=== PATIENT | female | born 1940 | race Caucasian/White ===

== ENCOUNTER → 2017-08-12 12:29 | Outpatient (CLI) | payer MEDICARE, SELFPAY ==
[2017-08-12 13:02] LABS: Bilirubin Urine UA NEGATIVE (NEGATIVE); Glucose Urine UA NEGATIVE (Normal); Ketones Urine UA NEGATIVE (NEGATIVE); Leukocyte Esterase Urine UA TRACE (NEGATIVE); Nitrite Urine UA NEGATIVE (NEGATIVE); Occult Blood Urine UA 3+ (Negative); Protein Urine UA 1+ (Negative); Specific Gravity Urine UA 1.015 (1.000-1.035); Urobilinogen Urine UA 0.2 E.U./dL (0.2)
[2017-08-12 13:04] LABS: Appearance Urine UA OTHER; Color Urine UA OTHER
[2017-08-12 13:11] LABS: RBC Urine >100/HPF (0-5/HPF); WBC Urine 1-5/HPF (0-5/HPF)
[2017-08-12 13:12] LABS: Culture Indicated Urine Cult Not Indicated; Squamous Epithelial Cell Urine 5-10 /HPF
== END ==
PROVIDERS: PCP Family Medicine; Visit Provider Urology
DX: N39.0 Urinary tract infection, site not specified (principal); R31.9 Hematuria, unspecified
CPT/HCPCS: 81001

== ENCOUNTER → 2017-08-20 08:56 | Outpatient (CLI) | payer MEDICARE, SELFPAY ==
[2017-08-20 09:21] LABS: Add Manual Diff / Slide Review NO; Basophils Percent Auto 1.3 % (0-2); Eosinophils Percent Auto 3.8 % (2-4); Hematocrit 35.1 % (36-46); Hemoglobin 11.6 g/dL (12.0-16.0); Lymphocytes Percent Auto 15.3 % (25-40); Mean Corpuscular HGB Conc 32.9 % (30-36); Monocytes Percent Auto 8.5 % (3-14); Neutrophils Absolute Auto 3000 /uL (3000-5900); Neutrophils Percent Auto 71.1 % (50-75); Platelet Count 208 X10^3/uL (150-400); Red Blood Cell Count 4.13 X10^6/uL (4.0-5.2); Red Cell Distribution Width 15.6 % (11.6-14.8); White Blood Cell Count 4.2 X10^3/uL (4.5-11.0)
[2017-08-20 09:29] LABS: INR 2.8 (0.9-1.3); Prothrombin Time 30.1 SECONDS (10.1-12.7)
[2017-08-20 09:32] LABS: PTT Partial Thromboplastin Tim 47 SECONDS (26.4-36.2)
[2017-08-20 09:42] LABS: Alanine Aminotransferase 18 IU/L (9-52); Albumin 3.8 g/dL (3.5-5.0); Albumin Globulin Ratio 1.1 (1.0-2.8); Alkaline Phosphatase 96 U/L (38-126); Aspartate Aminotransferase 16 IU/L (14-36); BUN Creatinine Ratio 17.9 (6-22); Bilirubin Total 0.4 mg/dL (0.2-1.3); Calcium 9.5 mg/dL (8.4-10.2); Estimated Glomerular Filt Rate 36.7 mL/min (>60); Globulin 3.4 g/dL (1.7-4.1); Glucose 112 mg/dL (80-110); HEMOLYSIS < 15 (0-50); Potassium 4.4 mmol/L (3.4-5.1); Sodium 142 mmol/L (137-145); Total Protein 7.2 g/dL (6.3-8.2)
[2017-08-20 10:13] LABS: Carcinoembryonic Antigen 1.3 ng/mL (0.1-3.0)
== END ==
PROVIDERS: Internal Medicine Hematology & Oncology; PCP Family Medicine; Visit Provider Nurse Practitioner Gerontology
DX: C20 Malignant neoplasm of rectum (principal); Z86.711 Personal history of pulmonary embolism; R07.89 Other chest pain
CPT/HCPCS: 80053; 82378; 85025; 85610; 85730

== ENCOUNTER → 2017-09-17 10:40 | Outpatient (CLI) | payer MEDICARE, SELFPAY ==
--- NOTE | 2017-09-17 | DI.US.S_ITS ---
PROCEDURE: US RENAL COMPLETE INDICATIONS: Hydronephrosis TECHNIQUE: Real-time scanning was performed of the kidneys and bladder, with image documentation. COMPARISON: [facility], CT, ABDOMEN/PELVIS WITHOUT CONTRAS, 05/11/2017, 9:01. FINDINGS: Kidneys: Right kidney surgically absent. Normal appearance of the left kidney measuring 13.0 cm in length. Renal cortical thickness of 19 mm. 3.5 cm inferior pole renal cortical cyst. Bladder: Urinary bladder decompressed and suboptimally visualized. Miscellaneous: No free pelvic fluid. IMPRESSION: Left renal cyst measuring up to 35 mm. No hydronephrosis. Dictated by: Timothy Hernandez [facility] Interpreted: Dany Roque MD on 09/17/2017 at 12:09 Approved by: Dany Roque M.D. on 09/17/2017 at 17:34
== END ==
PROVIDERS: PCP Family Medicine; Visit Provider Urology
DX: N28.1 Cyst of kidney, acquired (principal); Z90.5 Acquired absence of kidney
CPT/HCPCS: 76770

== ENCOUNTER → 2017-11-03 11:22 | Outpatient (CLI) | payer MEDICARE, SELFPAY ==
[2017-11-03 11:52] LABS: Alanine Aminotransferase 16 IU/L (9-52); Albumin 3.9 g/dL (3.5-5.0); Albumin Globulin Ratio 1.2 (1.0-2.8); Alkaline Phosphatase 101 U/L (38-126); Aspartate Aminotransferase 16 IU/L (14-36); BUN Creatinine Ratio 15.7 (6-22); Bilirubin Total 0.5 mg/dL (0.2-1.3); Blood Urea Nitrogen 22 mg/dL (7-17); Calcium 9.8 mg/dL (8.4-10.2); Carbon Dioxide 27 mmol/L (22-32); Chloride 107 mmol/L (98-107); Estimated Glomerular Filt Rate 36.7 mL/min (>60); Globulin 3.3 g/dL (1.7-4.1); Glucose 108 mg/dL (80-110); HEMOLYSIS < 15 (0-50); Potassium 4.5 mmol/L (3.4-5.1); Sodium 141 mmol/L (137-145); Total Protein 7.2 g/dL (6.3-8.2)
[2017-11-03 11:53] LABS: Add Manual Diff / Slide Review NO; Basophils Percent Auto 1.2 % (0-2); Eosinophils Percent Auto 2.7 % (2-4); Hematocrit 37.4 % (36-46); Mean Corpuscular HGB Conc 32.2 % (30-36); Mean Corpuscular Volume 83.8 fL (80-100); Monocytes Percent Auto 10.5 % (3-14); Neutrophils Absolute Auto 4000 /uL (3000-5900); Neutrophils Percent Auto 72.6 % (50-75); Platelet Count 233 X10^3/uL (150-400); Red Blood Cell Count 4.46 X10^6/uL (4.0-5.2); White Blood Cell Count 5.5 X10^3/uL (4.5-11.0)
[2017-11-03 12:23] LABS: Carcinoembryonic Antigen 1.2 ng/mL (0.1-3.0)
== END ==
PROVIDERS: PCP Family Medicine; Visit Provider Nurse Practitioner Gerontology
DX: C20 Malignant neoplasm of rectum (principal)
CPT/HCPCS: 36415; 80053; 82378; 85025

== ENCOUNTER → 2017-11-18 13:10 | Day surgery (SDC) | payer MEDICARE, SELFPAY ==
[2017-11-11 10:55] VITALS: BMI 37.2
[2017-11-18 13:39] VITALS: BP 152/80; PULSE 98; RESP 20; TEMP 37.4; O2SAT 97; BMI 37.2
--- NOTE | 2017-11-18 13:42 | SUR.OPER ---
Supine on padded OR bed, head on pillow, arm padded and tucked at side, legs uncrossed, safety belt at thigh, tape over blanket over lower legs .
== END ==
PROVIDERS: PCP Family Medicine; Visit Provider Surgery
PROC: (CPT 36590; principal; 2017-11-18 14:15)

== ENCOUNTER 2017-11-25 14:51 | Day surgery (SDC) | payer MEDICARE, SELFPAY ==
[2017-11-20 07:58] VITALS: BMI 37.2
[2017-11-25 15:32] VITALS: BP 156/93; PULSE 93; RESP 18; TEMP 37.3; O2SAT 95; BMI 37.2
[2017-11-25] MEDS: LACTATED RINGERS 1,000 ML 42 ML IV (15:54)
--- NOTE | 2017-11-25 16:21 | SUR.OPER ---
Supine on padded OR bed, head on pillow, arms secured on padded arm boards at <90 degrees abduction, legs uncrossed, safety belt at thigh, tape over blanket over lower legs.
[2017-11-25] MEDS: LIDOCAINE 1% W/EPI INJ 10 ML INJ (16:24)
[2017-11-25] MEDS: BUPIVACAINE 0.5% (PF) VIAL 10 ML INJ (16:25)
--- NOTE | 2017-11-25 16:32 | PM.OP.1 ---
Operative Date/Time/Diagnoses Date of procedure: 11/25/17 Time of procedure: 16:32 Pre-op diagnosis: Rectal Cancer Port no longer needed Post-op diagnosis: same Procedure & Clinicians Procedure: Power port removal Same procedure as scheduled: Yes Indications: Patient with rectal cancer. She has completed therapy and no longer requires her PowerPort Surgeon: Riya Layton Anesthesia Type: MAC +/- (Dr. Gonzales) Operative Notes Findings: Port in good repair. Removed in a single piece Closure Type: primary Specimen(s): none sent Estimated Blood Loss (mL): 5 Procedure in detail: After obtaining informed consent, the patient was brought to the operating room and placed in the supine position on the operating table. Following successful induction of IV sedation with monitored anesthesia care, the chest was prepped and draped in the standard surgical fashion. A timeout was held per SCOAP protocol. Following infiltration with local anesthetic to create a field block, the existing healed incision was repeated. This was carried down through the skin and subcutaneous tissue to reveal the tubing of the implanted central venous device. The tubing was carefully dissected free from surrounding structures and delivered into the field. Pressure was held at the deltopectoral groove to prevent air embolus and backbleeding. After 5 minutes time, we continued with dissection of the remaining portion of the port. The reservoir itself remained in the pocket and has been incorporated into the tissue. This was carefully dissected free with judicious use of a scalpel. It was delivered into the field as a single piece with tubing attached. The incision was checked for hemostasis and irrigated with warm saline solution. Once we were satisfied that all was clean and dry, it was closed in 2 layers with Vicryl Monocryl sutures. Dermabond was applied to the skin incision. All sponge, needle, and instrument counts were correct at the conclusion of the case. The patient was allowed to awaken from sedation without difficulty and taken to the post anesthesia care unit in good condition. Complications: none Condition: stable Disposition: PACU Plan for aftercare: 1. Discharge to home 2. Follow up me in my office in 3 weeks
[2017-11-25 16:42] VITALS: BP 131/70; PULSE 88; RESP 16; TEMP 36.2; O2SAT 95
[2017-11-25 17:00] VITALS: BP 145/74; PULSE 84; RESP 15; TEMP 36.2; O2SAT 96
== END 2017-11-25 17:13 | disposition home or self-care (01) ==
PROVIDERS: PCP Family Medicine; Visit Provider Surgery
PROC: (CPT 36590; principal; 2017-11-25 16:00)
DX: Z45.2 Encounter for adjustment and management of vascular access device (principal); C20 Malignant neoplasm of rectum
CPT/HCPCS: 36590; J2250; J2704; J3010

== ENCOUNTER 2017-12-05 20:20 | Emergency (ER) | payer MEDICARE, SELFPAY ==
[2017-12-05 20:24] VITALS: BP 146/73; PULSE 108; RESP 18; TEMP 36.6; O2SAT 96; BMI 34.9
--- NOTE | 2017-12-05 21:02 | DI.RAD.S_ITS ---
PROCEDURE: XR CHEST 1V INDICATIONS: Weakness. fever. TECHNIQUE: One view of the chest was acquired. COMPARISON: None. FINDINGS: Surgical changes and devices: None. Lungs and pleura: No pleural effusions or pneumothorax. Chronic increased interstitial lung reticular markings are noted. No focal infiltrate. Mediastinum: Mediastinal contours appear normal. Heart size is enlarged. Bones and chest wall: No suspicious bony lesions. Overlying soft tissues appear unremarkable. IMPRESSION: No acute cardiopulmonary pathology. Chronic increased interstitial lung reticular markings. Dictated by: Landen Peng M.D. on 12/05/2017 at 21:21 Approved by: Landen Peng M.D. on 12/05/2017 at 21:25
[2017-12-05 21:12] LABS: INR 2.1 (0.9-1.3); Prothrombin Time 22.8 SECONDS (10.1-12.7)
[2017-12-05 21:14] LABS: Add Manual Diff / Slide Review NO; Basophils Percent Auto 0.5 % (0-2); Eosinophils Percent Auto 0.3 % (2-4); Hematocrit 36.2 % (36-46); Hemoglobin 11.8 g/dL (12.0-16.0); Lymphocytes Percent Auto 5.1 % (25-40); Mean Corpuscular HGB Conc 32.7 % (30-36); Mean Corpuscular Hemoglobin 26.9 PG (26-34); Mean Corpuscular Volume 82.2 fL (80-100); Monocytes Percent Auto 8.2 % (3-14); Neutrophils Absolute Auto 9300 /uL (3000-5900); Neutrophils Percent Auto 85.9 % (50-75); Platelet Count 229 X10^3/uL (150-400); Red Cell Distribution Width 16.8 % (11.6-14.8); White Blood Cell Count 10.9 X10^3/uL (4.5-11.0)
[2017-12-05 21:15] LABS: PTT Partial Thromboplastin Tim 31 SECONDS (26.4-36.2)
[2017-12-05 21:18] LABS: Alanine Aminotransferase 13 IU/L (9-52); Albumin 3.7 g/dL (3.5-5.0); Alkaline Phosphatase 94 U/L (38-126); Aspartate Aminotransferase 14 IU/L (14-36); BUN Creatinine Ratio 14.4 (6-22); Bilirubin Total 0.7 mg/dL (0.2-1.3); Blood Urea Nitrogen 23 mg/dL (7-17); Calcium 9.3 mg/dL (8.4-10.2); Carbon Dioxide 22 mmol/L (22-32); Chloride 109 mmol/L (98-107); Estimated Glomerular Filt Rate 31.4 mL/min (>60); Globulin 3.6 g/dL (1.7-4.1); Glucose 123 mg/dL (80-110); HEMOLYSIS < 15 (0-50); Lactate (Lactic Acid) 1.4 mmol/L (0.7-2.1); Potassium 4.2 mmol/L (3.4-5.1); Sodium 141 mmol/L (137-145); Total Protein 7.3 g/dL (6.3-8.2)
[2017-12-05] MEDS: SODIUM CHLORIDE 0.9% 1,000 ML 150 ML IV (21:20)
[2017-12-05] MEDS: ACETAMINOPHEN 325 MG TABLET 650 MG PO (21:29)
[2017-12-05 21:31] VITALS: BP 105/82; PULSE 94; RESP 18; O2SAT 96
[2017-12-05 22:33] VITALS: BP 123/69; PULSE 87; RESP 31; O2SAT 95
[2017-12-05 22:59] LABS: Bacteria Urine Many (>30); Culture Indicated Urine Specimen Cultured; RBC Urine 5-10/HPF (0-5/HPF); Squamous Epithelial Cell Urine 1-5 /HPF; WBC Urine 30-100/HPF (0-5/HPF)
[2017-12-05] MEDS: CEFTRIAXONE 1 GM/50 ML FROZ.PIGGY IV (23:18)
[2017-12-05 23:35] VITALS: BP 132/49; PULSE 85; RESP 27; O2SAT 98
--- NOTE | 2017-12-05 23:36 | ED_ITS ---
HPI - Weakness General Chief complaint: Weakness Stated complaint: Weakness, SOB Time Seen by Provider: 12/05/17 20:52 Source: patient Mode of arrival: EMS Limitations: no limitations History of Present Illness HPI Narrative: The patient developed dysuria yesterday. She feels as if she has had a fever. She intended to come to the hospital to be seen, but on the way out of her house she became too weak to move herself. She called EMS. She arrives with history of subjective fever. She is oriented with no focal weakness. She simply feels weak in the lower extremities and feels like she has difficulty walking. She has no ENT complaints. She denies chest pain or palpitations. She denies cough or dyspnea. She has no abdominal discomfort. Her appetite has been normal. She has no significant GI findings. She complains of only dysuria and weakness. Related Data Home Medications Medication Instructions Recorded Confirmed latanoprost [Xalatan] 1 drp OPHTH HS #2.5 ml 11/29/15 12/05/17 warfarin [Coumadin] 7.5 mg PO 3-4XD #0 10/03/16 12/05/17 mirabegron [Myrbetriq] 50 mg PO DAILY 11/05/17 12/05/17 Previous Rx's Medication Instructions Recorded lorazepam 0.5 mg PO PRN PRN #30 05/01/16 sulfamethoxazole-trimethoprim 1 tab PO BID 7 Days #14 tab 12/06/17 [Bactrim DS] Allergies Allergy/AdvReac Type Severity Reaction Status Date / Time cashew nut Allergy Severe Anaphylaxis Verified 12/05/17 20:51 ciprofloxacin [CIPROFLOXACIN] Allergy Intermediate HIVES UP Verified 12/05/17 20 :51 ARM RIGHT AFTER IV DOSE STARTED nitrofurantoin Allergy Intermediate rash, Verified 12/05/17 20:51 [From MACRODANTIN] itching Review of Systems Review of Systems All systems reviewed & are unremarkable except as noted in HPI and below Constitutional Denies chills, Reports fever(s), Denies headache(s), Denies lethargy and Reports weakness Eyes Denies change in vision ENT Ears, Nose, Mouth, and Throat: Denies headache(s) and Denies sore throat Cardiovascular Denies chest pain, Denies edema, Denies palpitations, Denies dyspnea and Denies dyspnea on exertion Respiratory Denies cough, Denies dyspnea, Denies dyspnea on exertion and Denies wheezing Gastrointestinal Gastrointestinal: Denies abdominal pain, Denies change in bowel habits, Denies diarrhea, Denies nausea and Denies vomiting Genitourinary Reports as per HPI, Denies hematuria and Reports dysuria Musculoskeletal Reports back pain (She has chronic back pain.), Denies muscle weakness, Denies numbness and Denies tingling Integumentary/Breasts Denies pruritus, Denies erythema, Denies rash and Denies wounds Neurologic Denies headache(s), Denies numbness, Denies tingling and Reports weakness Endocrine Denies palpitations Allergic/Immunologic Denies wheezing [facility] Medical History 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) Easy bruisability (Acute) Incontinence (Acute) Leg swelling (Acute) Neuropathy (Acute) Port-A-Cath in place (Acute) Rectal carcinoma (Acute) Family History Mother Hypertension Cancer Son Hypertension Grandfather Heart disease Social History household members: family lives independently: Yes Smoking Status: Never smoker substance use type: does not use Exam Initial Vital Signs Initial Vital Signs: Vital Signs Temperature 97.8 F 12/05/17 20:24 Pulse Rate 108 H 12/05/17 20:24 Respiratory Rate 18 12/05/17 20:24 Blood Pressure 146/73 H 12/05/17 20:24 Pulse Oximetry 96 12/05/17 20:24 Const General: cooperative and well developed Nutritional Appearance: well nourished Orientation: alert, awake, oriented x3 and not confused [facility] Throat: posterior oropharynx normal Eyes Conjunctivae: conjunctivae normal Neck Neck: No JVD Chest Chest: normal palpation of entire chest wall Resp Effort & Inspection: normal respiratory effort and able to speak in complete sentences Auscultation: clear to auscultation bilaterally, no rales, no rhonchi and no wheezes Cardio Rate: regular rate Rhythm: regular rhythm Heart Sounds: S1 normal, S2 normal, no click, no gallops, no murmurs and no rubs Pulses: normal peripheral pulses GI Inspection: non-distended Palpation: soft, no hepatosplenomegaly, No guarding, No pulsatile mass and No tender Auscultation: normal bowel sounds Back/Spine/Pelvis Back: CVA tenderness right Skin General: no rashes or lesions noted, No jaundice and No petechiae Neuro General: alert, oriented x3, gait normal and no focal motor deficits Speech: speech normal Extrem General: no pedal edema and no calf tenderness Course Orders Ordered: ED Orders 12/05/17 20:30 Complete Blood Count AUTO DIFF Stat Comprehensive Metabolic Panel Stat Lactate (Lactic Acid) Stat Partial Thromboplastin Time Stat Prothrombin Time INR Stat 12/05/17 21:02 XR chest 1V Stat 12/05/17 21:17 Blood Culture Stat 12/05/17 22:47 Urine Culture Stat Urine Microscopic Stat Acetaminophen (Tylenol) 650 mg PO Q4HR PRN PRN Reason: As Needed for Fever/Mild Pain Last Admin: 12/05/17 21:29 Dose: 650 mg Sodium Chloride (Normal Saline 0.9%) 1,000 mls @ 150 mls/hr IV CONT GEO Last Infusion: 12/05/17 22:39 Dose: 0 mls/hr Admin: 12/05/17 21:20 Dose: 150 mls/hr Discontinued Medications Ceftriaxone Sodium/Dextrose (Rocephin) 1 gm in 50 mls @ 100 mls/hr IV NOW ONE Stop: 12/05/17 23:38 Last Infusion: 12/05/17 23:53 Dose: 0 mls/hr Admin: 12/05/17 23:18 Dose: 100 mls/hr Vital Signs - 8 hr 12/05/17 20:24 12/05/17 21:31 12/05/17 22:33 Temperature 97.8 F Pulse Rate 108 H 94 H 87 Pulse Rate [Orthostatic Lying] Pulse Rate [Orthostatic Sitting] Pulse Rate [Orthostatic Standing] Respiratory Rate 18 18 31 H Blood Pressure 146/73 H Blood Pressure [Left Arm] 105/82 123/69 Blood Pressure [Orthostatic Lying] Blood Pressure [Orthostatic Sitting] Blood Pressure [Orthostatic Standing] Pulse Oximetry 96 96 95 12/05/17 23:35 12/06/17 00:00 12/06/17 00:20 Temperature Pulse Rate 85 88 Pulse Rate [Orthostatic Lying] 83 Pulse Rate [Orthostatic Sitting] 88 Pulse Rate [Orthostatic Standing] 94 H Respiratory Rate 27 H 19 Blood Pressure Blood Pressure [Left Arm] 132/49 L 120/59 L Blood Pressure [Orthostatic Lying] 120/59 L Blood Pressure [Orthostatic Sitting] 123/61 Blood Pressure [Orthostatic Standing] 112/76 Pulse Oximetry 98 95 MDM - Weakness Lab Data Result diagrams: 12/05/17 20:30 12/05/17 20:30 Lab Results 12/05/17 12/05/17 12/05/17 Range/Units 20:30 20:30 20:30 WBC 10.9 (4.5-11.0) X10^3/uL RBC 4.40 (4.0-5.2) X10^6/uL Hgb 11.8 L (12.0-16.0) g/dL Hct 36.2 (36-46) % MCV 82.2 (80-100) fL MCH 26.9 (26-34) PG MCHC 32.7 (30-36) % RDW 16.8 H (11.6-14.8) % Plt Count 229 (150-400) X10^3/uL Neut % (Auto) 85.9 H (50-75) % Lymph % (Auto) 5.1 L (25-40) % Good[place] % (Auto) 8.2 (3-14) % Eos % (Auto) 0.3 L (2-4) % Baso % (Auto) 0.5 (0-2) % Neut # (Auto) 9300 H (6392-3563) /uL PT 22.8 H (10.1-12.7) SECONDS INR 2.1 H (0.9-1.3) APTT 31 D (26.4-36.2) SECONDS Sodium (137-145) mmol/L Potassium (3.4-5.1) mmol/L Chloride (98-107) mmol/L Carbon Dioxide (22-32) mmol/L BUN (7-17) mg/dL Creatinine (0.52-1.04) mg/dL Estimated GFR (>60) mL/min BUN/Creatinine Ratio (6-22) Glucose (80-110) mg/dL Lactate 1.4 (0.7-2.1) mmol/L Calcium (8.4-10.2) mg/dL Total Bilirubin (0.2-1.3) mg/dL AST (14-36) IU/L ALT (9-52) IU/L Alkaline Phosphatase (38-126) U/L Total Protein (6.3-8.2) g/dL Albumin (3.5-5.0) g/dL Globulin (1.7-4.1) g/dL Albumin/Globulin Ratio (1.0-2.8) Urine RBC (0-5/HPF) Urine WBC (0-5/HPF) Ur Squamous Epith Cells Urine Bacteria (None) Ur Culture Indicated? Micro UA Comment 12/05/17 12/05/17 Range/Units 20:30 22:47 WBC (4.5-11.0) X10^3/uL RBC (4.0-5.2) X10^6/uL Hgb (12.0-16.0) g/dL Hct (36-46) % MCV (80-100) fL MCH (26-34) PG MCHC (30-36) % RDW (11.6-14.8) % Plt Count (150-400) X10^3/uL Neut % (Auto) (50-75) % Lymph % (Auto) (25-40) % Gooding % (Auto) (3-14) % Eos % (Auto) (2-4) % Baso % (Auto) (0-2) % Neut # (Auto) (5045-7579) /uL PT (10.1-12.7) SECONDS INR (0.9-1.3) APTT (26.4-36.2) SECONDS Sodium 141 (137-145) mmol/L Potassium 4.2 (3.4-5.1) mmol/L Chloride 109 H (98-107) mmol/L Carbon Dioxide 22 (22-32) mmol/L BUN 23 H (7-17) mg/dL Creatinine 1.60 H (0.52-1.04) mg/dL Estimated GFR 31.4 L (>60) mL/min BUN/Creatinine Ratio 14.4 (6-22) Glucose 123 H (80-110) mg/dL Lactate (0.7-2.1) mmol/L Calcium 9.3 (8.4-10.2) mg/dL Total Bilirubin 0.7 (0.2-1.3) mg/dL AST 14 (14-36) IU/L ALT 13 (9-52) IU/L Alkaline Phosphatase 94 (38-126) U/L Total Protein 7.3 (6.3-8.2) g/dL Albumin 3.7 (3.5-5.0) g/dL Globulin 3.6 (1.7-4.1) g/dL Albumin/Globulin Ratio 1.0 (1.0-2.8) Urine RBC 5-10/hpf H (0-5/HPF) Urine WBC 30-100/hpf H (0-5/HPF) Ur Squamous Epith Cells 1-5 /hpf Urine Bacteria Many (>30) H (None) Ur Culture Indicated? Specimen cultured Micro UA Comment Not Reportable Imaging Data Chest x-ray: Attestation: I personally reviewed and interpreted this imaging study as follows: Radiologist's impression: No acute findings. ECG Data Attestation: I personally reviewed and interpreted this ECG as follows: MDM Narrative Medical decision making narrative: The patient has done much better after IV fluids and antibiotics. She is up ambulatory, feeling better. Discharge Plan Departure Patient Disposition: Home Clinical Impression: Urinary tract infection Discharge Date/Time: 12/06/17 00:26 Interventions: ED Discharge Assessment Last Done: 12/06/17 00:26 Instructions: DI for Urinary Tract Infection (UTI) Activity Restrictions/Additional Instructions: Septra DS 2 times daily. Drink plenty of water, stay well hydrated. Return her fever, or increased weakness. Recheck with her doctor in about 2 weeks. Prescriptions: New sulfamethoxazole-trimethoprim [Bactrim DS] 800-160 mg tablet 1 tab PO BID 7 Days Qty: 14 RF: 0 No Action latanoprost [Xalatan] 0.005 % drops 1 drp OPHTH HS Qty: 2.5 RF: 0 lorazepam 0.5 MG tablet 0.5 mg PO PRN PRNQty: 30 RF: 1 warfarin [Coumadin] 7.5 MG tablet 7.5 mg PO 3-4XD Qty: 0 RF: 0 mirabegron [Myrbetriq] 50 mg Tablet Extended Release 24 Hr 50 mg PO DAILY RF: 0
[2017-12-06] VITALS: BP 120/59; PULSE 88; RESP 19; O2SAT 95
[2017-12-06 00:20] VITALS: BP 112/76; BP 120/59; BP 123/61; PULSE 83; PULSE 88; PULSE 94
--- NOTE | 2017-12-06 00:22 | PC.NURSE ---
TOLERATED WELL. REPORTS SHE IS FEELING BETTER FROM WHEN SHE FIRST CAME IN. MD AWARE OF VITAL SIGNS AND AMBULATION
== END 2017-12-06 00:26 | disposition home or self-care (01) ==
PROVIDERS: Emergency Provider Emergency Medicine; PCP Family Medicine
DX: N39.0 Urinary tract infection, site not specified (principal); R53.1 Weakness
CPT/HCPCS: 36415; 36591; 71045; 80053; 81015; 83605; 85025; 85610; 85730; 87040; 87077; 87086; 87186; 93005; 93010; 93041; 96361; 96365; 99284; 99285

== ENCOUNTER → 2017-12-16 09:50 | Outpatient (CLI) | payer MEDICARE, SELFPAY ==
[2017-12-16 09:59] LABS: Bacteria Urine None Seen
[2017-12-16 10:20] LABS: Appearance Urine UA SL CLOUDY; Bilirubin Urine UA NEGATIVE (NEGATIVE); Color Urine UA YELLOW; Glucose Urine UA NEGATIVE (Normal); Ketones Urine UA NEGATIVE (NEGATIVE); Leukocyte Esterase Urine UA 1+ (NEGATIVE); Nitrite Urine UA Negative (Negative); Occult Blood Urine UA 3+ (Negative); Protein Urine UA 1+ (Negative); Urobilinogen Urine UA 0.2 E.U./dL (0.2)
[2017-12-16 10:46] LABS: Culture Indicated Urine Specimen Cultured; RBC Urine 5-10/HPF (0-5/HPF); WBC Urine 10-30/HPF (0-5/HPF)
== END ==
PROVIDERS: PCP Family Medicine; Visit Provider Urology
DX: R39.15 Urgency of urination (principal); Z01.818 Encounter for other preprocedural examination
CPT/HCPCS: 81001; 87086; 93005

== ENCOUNTER → 2018-01-13 14:45 | Outpatient (CLI) | payer MEDICARE, SELFPAY ==
--- NOTE | 2018-01-13 | DI.RAD.S_ITS ---
PROCEDURE: XR SHOULDER LT MIN 2V INDICATIONS: LEFT SHOULDER PAIN TECHNIQUE: 3 views of the shoulder were acquired. COMPARISON: None. FINDINGS: Bones: No fractures or dislocations. No suspicious bony lesions. Visualized ribs appear intact. Mild AC and glenohumeral joint degeneration. Soft tissues: No suspicious soft tissue calcifications. IMPRESSION: Mild left shoulder joint degeneration. Dictated by: Jorden Bradley M.D. on 01/13/2018 at 16:58 Approved by: Jorden Bradley M.D. on 01/13/2018 at 16:59
== END ==
PROVIDERS: PCP Family Medicine; Visit Provider Family Medicine
DX: M25.512 Pain in left shoulder (principal); M19.012 Primary osteoarthritis, left shoulder
CPT/HCPCS: 73030

== ENCOUNTER 2018-02-09 12:11 | Inpatient (IN) | payer MEDICARE, SELFPAY ==
[2018-02-09] MEDS: SODIUM CHLORIDE 0.9% 1,000 ML 250 ML IV (13:28)
[2018-02-09 13:30] VITALS: BP 132/77; PULSE 107; RESP 18; TEMP 36.6; O2SAT 97
[2018-02-09 14:06] LABS: Lactate (Lactic Acid) 1.1 mmol/L (0.7-2.1)
[2018-02-09 14:18] VITALS: BMI 37.0
[2018-02-09 14:27] LABS: Add Manual Diff / Slide Review NO; Basophils Percent Auto 0.9 % (0-2); Eosinophils Percent Auto 2.8 % (2-4); Hematocrit 38.4 % (36-46); Hemoglobin 12.3 g/dL (12.0-16.0); Lymphocytes Percent Auto 16.1 % (25-40); Mean Corpuscular Hemoglobin 26.5 PG (26-34); Mean Corpuscular Volume 82.7 fL (80-100); Monocytes Percent Auto 8.7 % (3-14); Neutrophils Absolute Auto 4000 /uL (3000-5900); Neutrophils Percent Auto 71.5 % (50-75); Platelet Count 214 X10^3/uL (150-400); Red Blood Cell Count 4.64 X10^6/uL (4.0-5.2); Red Cell Distribution Width 17.8 % (11.6-14.8); White Blood Cell Count 5.5 X10^3/uL (4.5-11.0)
[2018-02-09 14:37] LABS: Alanine Aminotransferase 23 IU/L (9-52); Albumin 3.7 g/dL (3.5-5.0); Albumin Globulin Ratio 1.1 (1.0-2.8); Alkaline Phosphatase 102 U/L (38-126); Aspartate Aminotransferase 14 IU/L (14-36); BUN Creatinine Ratio 19.3 (6-22); Bilirubin Total 0.3 mg/dL (0.2-1.3); Blood Urea Nitrogen 29 mg/dL (7-17); Calcium 9.5 mg/dL (8.4-10.2); Carbon Dioxide 24 mmol/L (22-32); Chloride 110 mmol/L (98-107); Estimated Glomerular Filt Rate 33.9 mL/min (>60); Globulin 3.4 g/dL (1.7-4.1); Glucose 94 mg/dL (80-110); HEMOLYSIS < 15 (0-50); Potassium 4.7 mmol/L (3.4-5.1); Sodium 145 mmol/L (137-145); Total Protein 7.1 g/dL (6.3-8.2)
[2018-02-09 14:45] LABS: Procalcitonin < 0.05 ng/mL (<0.5)
--- NOTE | 2018-02-09 14:56 | PC.NURSE ---
Day Shift Pt arrived to floor from Dr barboza office. Pt ambulated with walker. Pt is A&O x3 able to commentate needs. blood pressure on arrival was 151/123 p 107 allowed pt to rest and rechecked and was 132/77 p 88, pt denies any chest pain, sob and h/a. does report having burning with urination and has leaking wears pads. Pt voided and UA was sent to lab. Pt has colostomy that she has had for 5 years and take care of own care. IV started and IV fluids running at 250ml per order. oriented to room and call light. RT called for EKG and done per order. received verbal order from dr brink for vanco per pharmacy. Call light within reach and bed alarm for safety.
[2018-02-09] MEDS: VANCOMYCIN 1,250 MG in SODIUM CHLORIDE 0.9% 500 ML 333.333 ML IV (15:55)
[2018-02-09 16:10] VITALS: BP 151/75; PULSE 77; RESP 18; TEMP 36.4; O2SAT 95
[2018-02-09] MEDS: SODIUM CHLORIDE 0.9% 1,000 ML 125 ML IV (17:58)
--- NOTE | 2018-02-09 18:07 | PC.NURSE ---
Addendum entered by Gabriella Moreau R.N. 02/09/18 18:26: Per Pharmacy and Dr. Grover, patient experienced red man syndrome, new order obtained to continue Vancomycin at a lower rate. Patient continue awake and alert, decreased pruritis and redness to scalp. Original Note: Siri shift note: Dr. Grover at bedside updating patient regarding plan of care. Patient developed pruritis to scalp and around nose area, noted with pink scalp. Reaction occurred 5 minutes after completion of Vancomycin. No raised lesions, no difficulty breathing, VSS. Dr. Grover to change antibiotic. Patient awake, alert, and stable. Son at bedside providing supportive care. Continue IVF and close monitoring.
--- NOTE | 2018-02-09 18:26 | PM.HP.1 ---
History of Present Illness Date Patient Seen: 02/09/18 Time Patient Seen: 18:27 Chief complaint: dehydratioin,uti,tachcardia Narrative: Patient is a 77-year-old white female with multiple medical problems well known to me who presents to my office with increasing fatigue dizziness lightheadedness palpitations. No chest pain. She had increasing burning with urination that is been getting worse over the last week. She had a culture done last week which showed Staph species with sensitivity to linezolid, Vanco, rifampin, nitrofurantoin, she is allergic to nitrofurantoin. We are attempting to get little as it covered but was unable to. She presents today with increasing symptoms. She has had no change in her bowel movements. She has been feeling increasingly fatigued. No vomiting. Constant pain with urination decreased p.o. intake. Decreased appetite. No headaches visual symptoms or other change. Was difficult for to walk into my office. On assessment in office her blood pressure was 100/0 systolic and she had a pulse of 153 EKG showed sinus tach versus SVT. Due to her symptoms it was elected to admit for concern of worsening situation. Patient has had a history of recurrent infections and a stent in her kidney. 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 Been treated by Dr. Lewis. Has had multiple different infections which is not responding to basic treatment. No other significant changes or complaints. Patient had been on Ceftin previously. Past medical history is significant for urge incontinence history of rectal carcinoma status with colostomy hyperlipidemia hypertension hyperthyroidism history of pulmonary embolism history of reflux no other significant changes Past Surgical history. 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 No drugs or alcohol no smoking. Patient History Medical History 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) Easy bruisability (Acute) Incontinence (Acute) Leg swelling (Acute) Neuropathy (Acute) Port-A-Cath in place (Acute) Rectal carcinoma (Acute) Family & Social History Family History: Reviewed 02/09/18 by Eric Grover MD Social History: household members family Prior Living Arrangements House lives independently Yes Safety & Behavioral: Feels Safe in Current Yes Environment Been Physically Hurt or No Threatened By a Person Suicidal Ideation Description None Suicide Plan Description No Plan Tobacco & Substance use: Smoking Status Current every day smoker alcohol intake current alcohol intake frequency holiday/special occasion Substance Use Type does not use Meds Home Medications Medication Instructions Recorded Confirmed Type latanoprost [Xalatan] 1 drp OPHTH HS #2.5 ml 11/29/15 12/11/17 History warfarin [Coumadin] 7.5 mg PO 3-4XD #0 10/03/16 12/11/17 History mirabegron [Myrbetriq] 50 mg PO DAILY 11/05/17 12/11/17 History latanoprost 1 EYE-BOTH ONCE HS 02/09/18 History lorazepam 0.5 mg PO PRN PRN 02/09/18 History Allergies Allergy/AdvReac Type Severity Reaction Status Date / Time cashew nut Allergy Severe Anaphylaxis Verified 12/05/17 20:51 ciprofloxacin [CIPROFLOXACIN] Allergy Intermediate HIVES UP Verified 12/05/17 20:51 ARM RIGHT AFTER IV DOSE STARTED nitrofurantoin Allergy Intermediate rash, Verified 12/05/17 20:51 [From MACRODANTIN] itching Review of Systems Review of Systems All systems reviewed & are unremarkable except as noted in HPI and below Exam Vital Signs (past 8 hours): - 02/09/18 13:30 02/09/18 16:10 Temperature 97.9 F 97.6 F Pulse Rate 107 H 77 Respiratory Rate 18 18 Blood Pressure 132/77 151/75 H Pulse Oximetry 97 95 Narrative Exam Narrative: Alert female in moderate fatigue moving slowly. Mucous membranes dry. Eyes are unremarkable no oral lesions neck is supple without adenopathy JVD or bruits lungs are clear heart regular rate and rhythm without murmurs clicks rubs or gallops abdomen is obese soft she has got a large hernia in the left lower quadrant with her colostomy which seems to be functioning well. Extremities without cyanosis clubbing edema. No back pain. Skin is without rash. Neurologic exam shows cranial nerves 2-12 were intact motor is 5/5 reflexes are 2+ and symmetric. She has she is psychologically tired but otherwise appropriate Objective Labs Result Diagrams: 02/09/18 13:45 02/09/18 13:15 Labs: Laboratory Results - last 24 hr 02/09/18 02/09/18 02/09/18 13:15 13:15 13:15 WBC RBC Hgb Hct MCV MCH MCHC RDW Plt Count Neut % (Auto) Lymph % (Auto) [place] % (Auto) Eos % (Auto) Baso % (Auto) Neut # (Auto) Sodium 145 Potassium 4.7 Chloride 110 H Carbon Dioxide 24 BUN 29 H Creatinine 1.50 H Estimated GFR 33.9 L BUN/Creatinine Ratio 19.3 Glucose 94 Lactate 1.1 Calcium 9.5 Total Bilirubin 0.3 AST 14 ALT 23 Alkaline Phosphatase 102 Total Protein 7.1 Albumin 3.7 Globulin 3.4 Albumin/Globulin Ratio 1.1 Procalcitonin < 0.05 02/09/18 13:45 WBC 5.5 RBC 4.64 Hgb 12.3 Hct 38.4 MCV 82.7 MCH 26.5 MCHC 32.0 RDW 17.8 H Plt Count 214 Neut % (Auto) 71.5 Lymph % (Auto) 16.1 L [place] % (Auto) 8.7 Eos % (Auto) 2.8 Baso % (Auto) 0.9 Neut # (Auto) 4000 Sodium Potassium Chloride Carbon Dioxide BUN Creatinine Estimated GFR BUN/Creatinine Ratio Glucose Lactate Calcium Total Bilirubin AST ALT Alkaline Phosphatase Total Protein Albumin Globulin Albumin/Globulin Ratio Procalcitonin Assessment & Plan Plan: Assessment/Plan Narrative: Recurrent UTIs current UTI not responsive to outpatient treatment requiring inpatient treatment. Presented with low blood pressure and significant tachycardia. Does not appear to be septic. We will re-culture urine placed on vancomycin and will hope will be able to get ahead of this UTI. Certainly very difficult culture report. Hypotension and tachycardia probably secondary to dehydration. Aggressive hydration over 1 L and she is feeling better will continue hydration for now and re-evaluate. Dehydration. See above but IV hydration will continue fluid resuscitation tonight and re-evaluate in a.m.. History of PE will continue her Coumadin. Recheck INR in a.m.. Chronic renal failure. Stable. Will need to follow closely with Vanco Ureter stenosis. Some question of whether not this potentially gets infected in his stent she has red real difficulty she seems to get better time they change her stent but at this point I think we are okay without urology consult will get out patient evaluation History of reflux will continue Protonix. DVT prophylaxis on Coumadin GI prophylaxis already on PPI. Disposition. Patient is already feeling better now that she has got fluid resuscitation will see how things go. White count is normal no evidence of sepsis will re-evaluate in the next 24 hr and hopefully will not need more than 48 hr of antibiotics since it was such a difficult bug IV will need to be done. Discussed with pharmacist. Quality VTE Deep Vein Thrombosis/Pulmonary Embolism Present on Admission: No
[2018-02-09 20:17] VITALS: BP 152/80; PULSE 70; RESP 16; TEMP 36.6; O2SAT 98
[2018-02-09] MEDS: LATANOPROST 0.005% OPHTH 2.5 ML 1 DROPS EYE-BOTH (21:07)
--- NOTE | 2018-02-09 21:58 | PC.NURSE ---
Addendum entered by Barbara Keating 02/09/18 22:24: Original Note: Pt has been occasionally complaining of burning for a short period of time post urination. Dr. Grover, as he was making rounds, was made aware of this discomfort. Dr. Grover shared with this nursing faculty and primary nurse, Ana, that he wants to wait to treat this discomfort so as not to overwork her kidney. Student Nurse suggested attempting perineal wash for discomfort, but pt says the burning is in her urethra, and is not external.
[2018-02-10] VITALS (7 sets, daily range): BP systolic 113–163; BP diastolic 49–82; PULSE 70–88; RESP 16–20; TEMP 36.6–36.9; O2SAT 94–100
[2018-02-10] MEDS: SODIUM CHLORIDE 0.9% 1,000 ML 125 ML IV ×3 (00:30→20:06)
[2018-02-10 05:48] LABS: INR 1.8 (0.9-1.3)
[2018-02-10 05:53] LABS: Blood Urea Nitrogen 24 mg/dL (7-17); Calcium 9.3 mg/dL (8.4-10.2); Carbon Dioxide 23 mmol/L (22-32); Chloride 111 mmol/L (98-107); Estimated Glomerular Filt Rate 43.8 mL/min (>60); Glucose 96 mg/dL (80-110); HEMOLYSIS < 15 (0-50); Potassium 4.5 mmol/L (3.4-5.1); Sodium 144 mmol/L (137-145)
[2018-02-10 05:55] LABS: Add Manual Diff / Slide Review NO; Basophils Percent Auto 1.3 % (0-2); Eosinophils Percent Auto 4.1 % (2-4); Hematocrit 38.3 % (36-46); Hemoglobin 12.3 g/dL (12.0-16.0); Lymphocytes Percent Auto 26.2 % (25-40); Mean Corpuscular HGB Conc 32.1 % (30-36); Mean Corpuscular Hemoglobin 26.7 PG (26-34); Mean Corpuscular Volume 83.4 fL (80-100); Monocytes Percent Auto 9.1 % (3-14); Neutrophils Absolute Auto 3500 /uL (3000-5900); Neutrophils Percent Auto 59.3 % (50-75); Platelet Count 232 X10^3/uL (150-400); Red Blood Cell Count 4.59 X10^6/uL (4.0-5.2); Red Cell Distribution Width 17.8 % (11.6-14.8)
--- NOTE | 2018-02-10 08:44 | CM.DANOTE ---
DCP: Case received, EMR reviewed and met with patient. Introduced self and role. DCP template completed with information currently available. Patient is a 77 year old female who admitted yesterday afternoon to the care of the hospitalist team. PCP: Dr. Grover. Payer: confirmed: Medicare/[employer]. Patient came to hospital due to increased weakness. Patient holds diagnosis of UTI, dehydration, as well as tachycardia. Patient has staph in urine, and has a stent in one of her kidneys. She is currently receiving IV antibiotics, as well as fluids. Patient alert, stated that she lives in a apartment on her son's property. P: DCP to follow closely. May need skilled depending on length of time that patient needs IV antibiotics. Dr. Grover knows patient well, will continue to collaborate with provider regarding plan. Uyen Arellano RN/[employer] Welding [employer] Operator
--- NOTE | 2018-02-10 08:54 | PM.PN.1 ---
Subjective Date Patient Seen: 02/10/18 Time Patient Seen: 08:54 Interval history: Patient feeling better today. No dizziness no lightheadedness no chest pain. Does not feel like she is having palpitations anymore. Able to get up and move around a little better. Less fatigued. Still having severe burning with urination. Tolerated vancomycin after slowing dose down. No other significant new changes. Exam Vital Signs (past 8 hours): - 02/10/18 04:31 02/10/18 08:00 Temperature 97.9 F 98 F Pulse Rate 70 74 Respiratory Rate 20 18 Blood Pressure 160/77 H 163/73 H Pulse Oximetry 98 100 Oxygen Flow Rate 0 Narrative Exam Narrative: Alert elderly female much less fatigued in no acute distress. Mucous membranes are moist. Neck is supple without adenopathy. Lungs are clear. Heart regular rate and rhythm without murmurs clicks rubs or gallops. Abdomen is soft positive bowel sounds nontender she still has some large left lower quadrant hernia but colostomy looks okay. Extremities without cyanosis clubbing edema. Objective Labs Result Diagrams: 02/10/18 05:35 02/10/18 05:35 Labs: Laboratory Results - last 24 hr 02/09/18 02/09/18 02/09/18 13:15 13:15 13:15 WBC RBC Hgb Hct MCV MCH MCHC RDW Plt Count Neut % (Auto) Lymph % (Auto) [place] % (Auto) Eos % (Auto) Baso % (Auto) Neut # (Auto) PT INR Sodium 145 Potassium 4.7 Chloride 110 H Carbon Dioxide 24 BUN 29 H Creatinine 1.50 H Estimated GFR 33.9 L BUN/Creatinine Ratio 19.3 Glucose 94 Lactate 1.1 Calcium 9.5 Total Bilirubin 0.3 AST 14 ALT 23 Alkaline Phosphatase 102 Total Protein 7.1 Albumin 3.7 Globulin 3.4 Albumin/Globulin Ratio 1.1 Procalcitonin < 0.05 02/09/18 02/10/18 02/10/18 13:45 05:35 05:35 WBC 5.5 6.0 RBC 4.64 4.59 Hgb 12.3 12.3 Hct 38.4 38.3 MCV 82.7 83.4 MCH 26.5 26.7 MCHC 32.0 32.1 RDW 17.8 H 17.8 H Plt Count 214 232 Neut % (Auto) 71.5 59.3 Lymph % (Auto) 16.1 L 26.2 [place] % (Auto) 8.7 9.1 Eos % (Auto) 2.8 4.1 H Baso % (Auto) 0.9 1.3 Neut # (Auto) 4000 3500 PT INR Sodium 144 Potassium 4.5 Chloride 111 H Carbon Dioxide 23 BUN 24 H Creatinine 1.20 H Estimated GFR 43.8 L BUN/Creatinine Ratio 20.0 Glucose 96 Lactate Calcium 9.3 Total Bilirubin AST ALT Alkaline Phosphatase Total Protein Albumin Globulin Albumin/Globulin Ratio Procalcitonin 02/10/18 05:35 WBC RBC Hgb Hct MCV MCH MCHC RDW Plt Count Neut % (Auto) Lymph % (Auto) [place] % (Auto) Eos % (Auto) Baso % (Auto) Neut # (Auto) PT 20.0 H INR 1.8 H Sodium Potassium Chloride Carbon Dioxide BUN Creatinine Estimated GFR BUN/Creatinine Ratio Glucose Lactate Calcium Total Bilirubin AST ALT Alkaline Phosphatase Total Protein Albumin Globulin Albumin/Globulin Ratio Procalcitonin Assessment & Plan Plan: Assessment/Plan Narrative: Recurrent UTIs current UTI patient has grown Staph with very specific resistances. She was unresponsive to outpatient treatment and requires IV antibiotics Current growing gram-negative rods. I will discuss with pharmacy about best options. At this point will continue her Vanco. Hoping we can have clarification tomorrow for culture results. Hypotension and tachycardia probably secondary to dehydration. Patient much improved. Heart rate has been stable. No evidence for recurrent tachycardia. Probably secondary to her dehydration. Much improved. Will continue fluid hydration today and then see how she does. Re-evaluate a.m. and discontinue am hoping at that point. Dehydration. Improved. Will continue hydration today and re-evaluate in a.m.. History of PE will continue her Coumadin. Recheck INR in a.m.. Acute on chronic renal failure. Creatinine is much improved. Probably pre renal. Will continue hydration today and re-evaluate in a.m.. Ureter stenosis. With the recurrent nature of her infections still have some concern that stent may be infected will have to follow. History of reflux will continue Protonix. DVT prophylaxis on Coumadin GI prophylaxis already on PPI. Disposition. Patient is feeling better. I think were more euvolemic. No evidence of sepsis or return of her significant tachycardia. I suspect most of this was dehydration and infection. The question is now what antibiotic to which use because it appears as if the cultures are going to be different. Will discuss with pharmacy. Hopefully we get this settled and we can re-evaluate in a.m.. Potential discharge depending on how well she does. Quality VTE Deep Vein Thrombosis/Pulmonary Embolism Present on Admission: No
[2018-02-10] MEDS: CEFTRIAXONE 1 GM/50 ML FROZ.PIGGY IV (09:21)
[2018-02-10] MEDS: VANCOMYCIN 1,250 MG in SODIUM CHLORIDE 0.9% 250 ML 125 ML IV (16:12)
[2018-02-10] MEDS: WARFARIN 5 MG TABLET PO (17:13)
[2018-02-10] MEDS: LATANOPROST 0.005% OPHTH 2.5 ML 1 DROPS EYE-BOTH (20:06)
--- NOTE | 2018-02-10 22:30 | PC.NURSE ---
Pt c/o swelling in her forearm around her IV site. Nurse, Ana was unable to flush the site. Ana inserted an IV catheter into Left AC. Student nurse discontinued IV on Right Forearm. Catheter was intact. Site was dressed with two 2x2 gauze and pressure applied with Coban tape because pt is on Coumadin. Site assessed 15 minutes later, no active bleeding and no further swelling noted. Offered pt warm/cold compress, pt declined.
[2018-02-11] MEDS: ACETAMINOPHEN 325 MG TABLET 650 MG PO ×2 (03:04→08:45)
[2018-02-11 04:30] VITALS: BP 152/79; PULSE 70; RESP 18; TEMP 36.7; O2SAT 97
[2018-02-11] MEDS: SODIUM CHLORIDE 0.9% 1,000 ML 125 ML IV (04:59)
[2018-02-11 06:09] LABS: Add Manual Diff / Slide Review NO; Eosinophils Percent Auto 4.1 % (2-4); Hematocrit 33.9 % (36-46); Hemoglobin 11.1 g/dL (12.0-16.0); Lymphocytes Percent Auto 19.8 % (25-40); Mean Corpuscular HGB Conc 32.9 % (30-36); Mean Corpuscular Hemoglobin 27.2 PG (26-34); Mean Corpuscular Volume 82.8 fL (80-100); Monocytes Percent Auto 10.1 % (3-14); Neutrophils Absolute Auto 3400 /uL (3000-5900); Platelet Count 184 X10^3/uL (150-400); Red Blood Cell Count 4.09 X10^6/uL (4.0-5.2); Red Cell Distribution Width 17.5 % (11.6-14.8); White Blood Cell Count 5.3 X10^3/uL (4.5-11.0)
[2018-02-11 06:16] LABS: BUN Creatinine Ratio 16.7 (6-22); Blood Urea Nitrogen 20 mg/dL (7-17); Calcium 9.2 mg/dL (8.4-10.2); Carbon Dioxide 23 mmol/L (22-32); Chloride 113 mmol/L (98-107); Estimated Glomerular Filt Rate 43.8 mL/min (>60); Glucose 101 mg/dL (80-110); HEMOLYSIS < 15 (0-50); Potassium 4.5 mmol/L (3.4-5.1); Sodium 144 mmol/L (137-145)
[2018-02-11 07:25] VITALS: BP 159/86; PULSE 76; RESP 17; TEMP 36.6; O2SAT 97
--- NOTE | 2018-02-11 08:36 | P.PN_ITS ---
Subjective Date Patient Seen: 02/11/18 Time Patient Seen: 08:31 Interval history: Patient states that she is feeling much better than when she came in. She is not feeling of heart racing heart or feeling lightheaded. She states that the dysuria which was quite severe she was feeling is no longer present. She is still having difficulty with urinary incontinence and she attributes this in part to her IV fluids. She is not having any nausea or vomiting. She is tolerating p.o. fluids without difficulty. She is not having any abdominal pain. Twelve point review of systems is negative other than above Patient does have a colostomy and there is no change in her stool function Exam Vital Signs (past 8 hours): - 02/11/18 04:30 02/11/18 07:25 Temperature 98.1 F 97.9 F Pulse Rate 70 76 Respiratory Rate 18 17 Blood Pressure 152/79 H 159/86 H Pulse Oximetry 97 97 Oxygen Flow Rate 0 Narrative Exam Narrative: Alert and oriented x3 in no apparent distress Neck: Supple without adenopathy or thyromegaly Chest: Clear to auscultation without wheezes rhonchi or crackles Cor: Regular rate and rhythm without murmur Abdomen: Obese, colostomy in place without abnormalities, bowel sounds x4 present, nontender, nondistended Extremities: 1+ pitting edema left greater than right Objective Labs Result Diagrams: 02/11/18 05:07 02/11/18 05:07 Labs: Laboratory Results - last 24 hr 02/11/18 02/11/18 05:07 05:07 WBC 5.3 RBC 4.09 Hgb 11.1 L Hct 33.9 L MCV 82.8 MCH 27.2 MCHC 32.9 RDW 17.5 H Plt Count 184 Neut % (Auto) 65.0 Lymph % (Auto) 19.8 L [place] % (Auto) 10.1 Eos % (Auto) 4.1 H Baso % (Auto) 1.0 Neut # (Auto) 3400 Sodium 144 Potassium 4.5 Chloride 113 H Carbon Dioxide 23 BUN 20 H Creatinine 1.20 H Estimated GFR 43.8 L BUN/Creatinine Ratio 16.7 Glucose 101 Calcium 9.2 Assessment & Plan Plan: Assessment/Plan Narrative: 77-year-old female admitted for urinary tract infection with systemic involvement manifested by tachycardia with improvement. Her urine is growing out Pseudomonas that is sensitive to Cipro and Zosyn. Unfortunately patient is allergic to Cipro. I discussed the case with Dr. Sullivan at [facility]. Based on this and discussion with the patient and believed that she was having systemic manifestations of her urinary tract infection I elected to discontinue her vancomycin and her Rocephin and place her on Zosyn. She will likely need 3 more days of IV antibiotics. We discussed the other option of doing no antibiotics and reassessing but patient was not comfortable with this because of the magnitude of her illness and a infection this time. We will repeat labs in the morning including an INR due to her Coumadin We will stop IV fluids. Quality VTE Deep Vein Thrombosis/Pulmonary Embolism Present on Admission: No
[2018-02-11] MEDS: PIPERACILLIN-TAZO 2.25 GM/50 ML FROZ.PIGGY IV ×3 (08:42→21:57)
[2018-02-11] MEDS: SODIUM CHLORIDE 0.9% FLUSH 10 ML IV ×3 (09:15→21:57)
--- NOTE | 2018-02-11 09:57 | PC.NURSE ---
AM NOTE - alert, up to chair, reports has had headache discomfort, points to accross forehead, earlier tylenol helped, it's coming back, given addl tylenol after breakfast, reports voiding freq w/o discomfort, bs clear, 97% ra, hr 66, ivf saline lock after abx, pt enc fluids.
[2018-02-11 11:15] VITALS: BP 152/85; PULSE 62; RESP 18; TEMP 36.5; O2SAT 98
[2018-02-11 16:19] VITALS: BP 153/68; PULSE 68; RESP 20; TEMP 37.2; O2SAT 100
[2018-02-11] MEDS: WARFARIN 5 MG TABLET PO (17:02)
--- NOTE | 2018-02-11 17:50 | PC.NURSE ---
Siri shift note: Awake, alert, pleasant and cooperative. States no longer experiencing dysuria. No N/V. NSR. VSS and afebrile. States feel stronger than a few days ago, day of admission. Up out of bed to with cane assistance. Clear yellow urine, QS. Calls appropriately for staff assistance.
--- NOTE | 2018-02-11 21:30 | PC.NURSE ---
Addendum entered by Barbara Keating 02/11/18 22:45: The patient is tolerating the Zosyn well. She hasn't complained of any headaches or itching this evening. Original Note: Patient states that the burning and dysuria have significantly improved since yesterday. Hematuria is almost scant in comparison to yesterday, and her voids are larger in amount. Her demeanor has improved since yesterday. Her stability while walking to and from the bathroom has also improved. Patient states that she would like to be able to go to the bathroom unassisted. The student nurse provided her with rationale on why standby assistance is necessary. She verbalized that she understood. While talking with her this evening I learned that the patient lives in a separate unit than her son, but on shared property. He checks in with her frequently throughout the day and they spend their evenings together.
[2018-02-11 21:36] VITALS: BP 158/74; PULSE 77; RESP 19; TEMP 36.6; O2SAT 100
[2018-02-11] MEDS: LATANOPROST 0.005% OPHTH 2.5 ML 1 DROPS EYE-BOTH (21:57)
[2018-02-12] VITALS (7 sets, daily range): BP systolic 131–171; BP diastolic 70–92; PULSE 64–70; RESP 15–18; TEMP 36.4–36.8; O2SAT 95–98
[2018-02-12] MEDS: SODIUM CHLORIDE 0.9% FLUSH 10 ML IV ×3 (03:03→20:37)
[2018-02-12] MEDS: PIPERACILLIN-TAZO 2.25 GM/50 ML FROZ.PIGGY IV ×4 (03:03→20:37)
[2018-02-12 05:45] LABS: Add Manual Diff / Slide Review NO; Basophils Percent Auto 1.4 % (0-2); Eosinophils Percent Auto 6.3 % (2-4); Hematocrit 35.4 % (36-46); Hemoglobin 11.6 g/dL (12.0-16.0); Lymphocytes Percent Auto 27.4 % (25-40); Mean Corpuscular HGB Conc 32.9 % (30-36); Mean Corpuscular Hemoglobin 27.2 PG (26-34); Mean Corpuscular Volume 82.8 fL (80-100); Monocytes Percent Auto 9.9 % (3-14); Neutrophils Absolute Auto 2400 /uL (3000-5900); Platelet Count 202 X10^3/uL (150-400); Red Blood Cell Count 4.28 X10^6/uL (4.0-5.2); Red Cell Distribution Width 17.8 % (11.6-14.8); White Blood Cell Count 4.4 X10^3/uL (4.5-11.0)
[2018-02-12 05:47] LABS: INR 1.8 (0.9-1.3); Prothrombin Time 19.5 SECONDS (10.1-12.7)
[2018-02-12 05:54] LABS: BUN Creatinine Ratio 16.4 (6-22); Blood Urea Nitrogen 23 mg/dL (7-17); Calcium 9.1 mg/dL (8.4-10.2); Carbon Dioxide 24 mmol/L (22-32); Chloride 109 mmol/L (98-107); Estimated Glomerular Filt Rate 36.7 mL/min (>60); Glucose 103 mg/dL (80-110); HEMOLYSIS < 15 (0-50); Potassium 4.1 mmol/L (3.4-5.1); Sodium 142 mmol/L (137-145)
[2018-02-12] MEDS: LISINOPRIL 10 MG TABLET PO (09:33)
[2018-02-12] MEDS: ACETAMINOPHEN 325 MG TABLET 650 MG PO (11:26)
--- NOTE | 2018-02-12 11:31 | PC.NURSE ---
Addendum entered by Renee Keller R.N. 02/12/18 14:59: pain - states earlier headache resolved with tylenol. Original Note: AM NOTE - pt up to chair for breakfast, denied headache pain initially, no nausea or discomfort when voiding, later am did report headache discomfort and given tylenol 650mg po, in this am and tele dc'd.
[2018-02-12] MEDS: WARFARIN 5 MG TABLET PO (17:24)
--- NOTE | 2018-02-12 17:27 | PM.PN.1 ---
Subjective Date Patient Seen: 02/12/18 Time Patient Seen: 08:27 Interval history: Feeling pretty well. No dysuria, a little weak, but up and around ok. Exam Vital Signs (past 8 hours): - 02/12/18 11:50 02/12/18 16:34 Temperature 98.0 F 98.0 F Pulse Rate 69 67 Respiratory Rate 18 16 Blood Pressure 157/78 H 131/92 H Pulse Oximetry 98 97 Oxygen Delivery Method Room Air Oxygen Flow Rate 0 Narrative Exam Narrative: healthy appearing, sitting up in a chairnm no distress. HEENT benign, chest CTA, heart RRR without murmur, abd soft, nontender notdistended. Nl BTs.. Neuro benign, extremities benign Objective Labs Result Diagrams: 02/12/18 05:15 02/12/18 05:15 Labs: Laboratory Results - last 24 hr 02/12/18 02/12/18 02/12/18 05:15 05:15 05:15 WBC 4.4 L RBC 4.28 Hgb 11.6 L Hct 35.4 L MCV 82.8 MCH 27.2 MCHC 32.9 RDW 17.8 H Plt Count 202 Neut % (Auto) 55.0 Lymph % (Auto) 27.4 [place] % (Auto) 9.9 Eos % (Auto) 6.3 H Baso % (Auto) 1.4 Neut # (Auto) 2400 L PT 19.5 H INR 1.8 H Sodium 142 Potassium 4.1 Chloride 109 H Carbon Dioxide 24 BUN 23 H Creatinine 1.40 H Estimated GFR 36.7 L BUN/Creatinine Ratio 16.4 Glucose 103 Calcium 9.1 Assessment & Plan (1) UTI (urinary tract infection): Problem details: Pseudomonas pos, challenging tx with range of intol/allergies. Tolerating current Zosyn, continue same for total of 3 days? Current visit: No Status: Acute (2) Hypertension: Problem details: do not see this as issue prior, not on admission but quite high this am, so will start lisinopril Current visit: No Status: Chronic (3) Volume depletion: Problem details: Seems well replaced Current visit: No Status: Acute (4) Recurrent UTI: Problem details: No clear cause why she has had such a run. 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 Remains on oral anticoag for DVT prophylaxis Quality VTE Deep Vein Thrombosis/Pulmonary Embolism Present on Admission: No
[2018-02-12] MEDS: SODIUM CHLORIDE 0.9% 250 ML 21 ML IV (20:37)
[2018-02-12] MEDS: LATANOPROST 0.005% OPHTH 2.5 ML 1 DROPS EYE-BOTH (20:37)
--- NOTE | 2018-02-12 21:58 | PC.NURSE ---
SHIFT NOTE A&Ox3, pleasant and cooperative with care. modified independent with ADLs. pt manages colostomy independently. states some diarrhea but declined any interventions at this time. denies pain or dysuria. call light within reach.
[2018-02-13] MEDS: PIPERACILLIN-TAZO 2.25 GM/50 ML FROZ.PIGGY IV ×4 (02:35→21:28)
[2018-02-13 05:42] LABS: Add Manual Diff / Slide Review NO; Basophils Percent Auto 1.2 % (0-2); Eosinophils Percent Auto 5.1 % (2-4); Hematocrit 36.2 % (36-46); Hemoglobin 11.7 g/dL (12.0-16.0); Lymphocytes Percent Auto 23.7 % (25-40); Mean Corpuscular HGB Conc 32.4 % (30-36); Mean Corpuscular Hemoglobin 26.9 PG (26-34); Mean Corpuscular Volume 82.9 fL (80-100); Monocytes Percent Auto 9.4 % (3-14); Neutrophils Absolute Auto 2800 /uL (3000-5900); Neutrophils Percent Auto 60.6 % (50-75); Platelet Count 207 X10^3/uL (150-400); Red Blood Cell Count 4.37 X10^6/uL (4.0-5.2); Red Cell Distribution Width 17.6 % (11.6-14.8); White Blood Cell Count 4.7 X10^3/uL (4.5-11.0)
[2018-02-13 05:45] LABS: INR 1.8 (0.9-1.3); Prothrombin Time 19.8 SECONDS (10.1-12.7)
[2018-02-13 05:50] LABS: Blood Urea Nitrogen 24 mg/dL (7-17); Calcium 9.4 mg/dL (8.4-10.2); Carbon Dioxide 25 mmol/L (22-32); Chloride 111 mmol/L (98-107); Estimated Glomerular Filt Rate 33.9 mL/min (>60); Glucose 98 mg/dL (80-110); HEMOLYSIS < 15 (0-50); Potassium 4.9 mmol/L (3.4-5.1); Sodium 143 mmol/L (137-145)
[2018-02-13 06:13] VITALS: BP 158/85; PULSE 69; RESP 16; TEMP 36.4; O2SAT 96
[2018-02-13 07:35] VITALS: BP 184/79; PULSE 66; RESP 16; TEMP 36.8; O2SAT 98
[2018-02-13] MEDS: LISINOPRIL 10 MG TABLET PO (09:01)
[2018-02-13] MEDS: SODIUM CHLORIDE 0.9% FLUSH 10 ML IV ×2 (09:02→22:21)
[2018-02-13 12:09] VITALS: BP 152/74; PULSE 74; RESP 17; TEMP 37.1; O2SAT 98
--- NOTE | 2018-02-13 14:02 | PM.PN.1 ---
Subjective Date Patient Seen: 02/13/18 Time Patient Seen: 14:02 Interval history: Feels well, has been up and around, no pain no breathing problems no dysuria usual frequency. Recalls being on blood pressure medicine before but was stopped on thinking because of her renal disease but she does note that her pressure tends to be about 150 Exam Vital Signs (past 8 hours): - 02/13/18 06:13 02/13/18 07:35 02/13/18 12:09 Temperature 97.5 F L 98.2 F 98.7 F Pulse Rate 69 66 74 Respiratory Rate 16 16 17 Blood Pressure 158/85 H 184/79 H 152/74 H Pulse Oximetry 96 98 98 Oxygen Delivery Method Room Air Oxygen Flow Rate 0 Narrative Exam Narrative: No acute distress up in a chair and no concerns. HEENT unremarkable neck is benign chest is clear heart regular without murmur abdomen soft nontender nondistended no CVA tenderness extremities benign neurologically benign Objective Labs Result Diagrams: 02/13/18 05:30 02/13/18 05:30 Labs: Laboratory Results - last 24 hr 02/13/18 02/13/18 02/13/18 05:30 05:30 05:30 WBC 4.7 RBC 4.37 Hgb 11.7 L Hct 36.2 MCV 82.9 MCH 26.9 MCHC 32.4 RDW 17.6 H Plt Count 207 Neut % (Auto) 60.6 Lymph % (Auto) 23.7 L [place] % (Auto) 9.4 Eos % (Auto) 5.1 H Baso % (Auto) 1.2 Neut # (Auto) 2800 L PT 19.8 H INR 1.8 H Sodium 143 Potassium 4.9 Chloride 111 H Carbon Dioxide 25 BUN 24 H Creatinine 1.50 H Estimated GFR 33.9 L BUN/Creatinine Ratio 16.0 Glucose 98 Calcium 9.4 Assessment & Plan (1) UTI (urinary tract infection): Problem details: Pseudomonas pos, challenging tx with range of intol/allergies. Tolerating current Zosyn, continue same for total of 3 days? So plan on continuing until tomorrow morning and likely discharged off of antibiotics. Current visit: No Status: Acute (2) Chronic renal disease, stage 3, moderately decreased glomerular filtration rate (GFR) between 30-59 mL/min/1.73 square meter: Problem details: Slight bump overnight. I did start Abdirizak inhibitor for blood pressure perhaps not a good choice will DC that and moved to alternative. Current visit: Yes Status: Chronic (3) Anticoagulated: Problem details: lab is followed, currently 1.8 INR, no change for now. Current visit: Yes Status: Chronic (4) Volume depletion: Problem details: Seems well replaced Current visit: No Status: Acute (5) Hypertension: Problem details: Does seem to be a history of this in the past. Has been quite persistent during this hospitalization, somewhat better on lisinopril but in light of renal disease will switch to amlodipine Current visit: No Status: Chronic Plan: Assessment/Plan Narrative: Follow labs changes as above likely discharge in the morning. Quality VTE Deep Vein Thrombosis/Pulmonary Embolism Present on Admission: No
[2018-02-13 15:47] VITALS: BP 162/74; PULSE 72; RESP 16; TEMP 36.9; O2SAT 98
[2018-02-13] MEDS: WARFARIN 5 MG TABLET PO (17:09)
--- NOTE | 2018-02-13 18:45 | PC.NURSE ---
Addendum entered by Adia Garcia R.N. 02/13/18 21:59: Pt had relatively uneventful evening. Denies any discomfort. up ad ricky in room independently. HL intact/patent. Pt maintains own colostomy. Pt hoping to D/C tomorrow. Call light w/in reach, Continue w/plan of care. Original Note: Pt sitting up in chair, independent in room. Denies discomfort. HL intact/patent. Abdominal binder in place. Call light w/in reach.
[2018-02-13 20:30] VITALS: BP 152/76; PULSE 74; RESP 18; TEMP 36.9; O2SAT 98
[2018-02-13] MEDS: LATANOPROST 0.005% OPHTH 2.5 ML 1 DROPS EYE-BOTH (21:27)
[2018-02-13 23:20] VITALS: BP 158/74; PULSE 78; RESP 18; TEMP 36.4; O2SAT 97
[2018-02-14] MEDS: SODIUM CHLORIDE 0.9% 250 ML 21 ML IV (03:08)
[2018-02-14] MEDS: PIPERACILLIN-TAZO 2.25 GM/50 ML FROZ.PIGGY IV ×2 (03:08→09:44)
[2018-02-14 03:12] VITALS: BP 156/70; PULSE 63; RESP 18; TEMP 36.4; O2SAT 97
[2018-02-14 05:54] LABS: Add Manual Diff / Slide Review NO; Basophils Percent Auto 1.3 % (0-2); Eosinophils Percent Auto 5.6 % (2-4); Hemoglobin 11.6 g/dL (12.0-16.0); Lymphocytes Percent Auto 22.9 % (25-40); Mean Corpuscular Hemoglobin 27.4 PG (26-34); Mean Corpuscular Volume 83.1 fL (80-100); Monocytes Percent Auto 10.3 % (3-14); Neutrophils Absolute Auto 2500 /uL (3000-5900); Neutrophils Percent Auto 59.9 % (50-75); Platelet Count 194 X10^3/uL (150-400); Red Blood Cell Count 4.22 X10^6/uL (4.0-5.2); Red Cell Distribution Width 17.9 % (11.6-14.8); White Blood Cell Count 4.1 X10^3/uL (4.5-11.0)
[2018-02-14 06:05] LABS: INR 1.9 (0.9-1.3); Prothrombin Time 20.7 SECONDS (10.1-12.7)
[2018-02-14 06:10] LABS: BUN Creatinine Ratio 15.7 (6-22); Blood Urea Nitrogen 22 mg/dL (7-17); Calcium 9.3 mg/dL (8.4-10.2); Carbon Dioxide 25 mmol/L (22-32); Chloride 110 mmol/L (98-107); Estimated Glomerular Filt Rate 36.7 mL/min (>60); Glucose 102 mg/dL (80-110); HEMOLYSIS < 15 (0-50); Potassium 4.6 mmol/L (3.4-5.1); Sodium 143 mmol/L (137-145)
[2018-02-14 08:01] VITALS: BP 158/78; PULSE 72; RESP 17; TEMP 36.8; O2SAT 99
--- NOTE | 2018-02-14 09:05 | PC.NURSE ---
Patient's void hat in toilet was filled to top from multiple voids through the night. Charted 1000ml at 0700 to cover overnight stocker voids.
[2018-02-14] MEDS: AMLODIPINE 5 MG TABLET PO (09:39)
[2018-02-14] MEDS: SODIUM CHLORIDE 0.9% FLUSH 10 ML IV (09:40)
--- NOTE | 2018-02-14 11:12 | PM.DS.1 ---
History of Present Illness Date Patient Seen: 02/14/18 Time Patient Seen: 11:12 Chief complaint: dehydratioin,uti,tachcardia Narrative: See H&P Discharge Providers Date of admission: 02/09/18 12:11 Primary care physician: Eric Grover MD Discharge provider: Shahid Pedersen MD Discharge Date: 02/14/18 Summary Discharge Diagnosis: 1. Urinary tract infection failing outpatient treatment 2. Volume depletion with associated tachycardia and hypotension 3. History of pulmonary embolus on anticoagulation 4. Chronic kidney disease stage 3 5. History of recurring UTIs, unclear cause, followed by Urology, with allergies to several antibiotics, and failing outpatient treatment 6. History of rectal carcinoma with existing colostomy. 7. Hypertension, treatment started during this admission. Hospital Course: Patient had been increasingly ill prior to admission. Was seen in the office and evaluated with suspicion of volume depletion and evidence of urinary tract infection. Was admitted anticipating a brief stay for hydration but because of her allergy situation and a difficult organism causing the infection a longer stay was necessary. She was placed ultimately on Zosyn, and has completed just over 3 days of that IV. She felt better really even the the following day and has remained well throughout the hospitalization up and around feeling well normal appetite no urinary symptoms to speak of. Blood pressure was pretty high we started her initially on an ARSLAN-inhibitor but because of her renal status switch that over to amlodipine. Her kidney function remained fairly stable but with elevated creatinine, also continued her usual anticoagulation for PE and was a little subtherapeutic but that improved. Hydrated readily at 1st with IVs responded well to that IV fluids were cut back. Status at Discharge Cognitive/behavioral status at discharge: Remains stable throughout Functional status at discharge: uses cane/walker Time Spent with Patient Greater than 30 minutes Exam Vital Signs (past 8 hours): - 02/14/18 08:01 Temperature 98.3 F Pulse Rate 72 Respiratory Rate 17 Blood Pressure 158/78 H Pulse Oximetry 99 Oxygen Delivery Method Room Air Oxygen Flow Rate 0 Objective Labs Result Diagrams: 02/14/18 05:36 02/14/18 05:36 Labs: Laboratory Results - last 24 hr 02/14/18 02/14/18 02/14/18 05:36 05:36 05:36 WBC 4.1 L RBC 4.22 Hgb 11.6 L Hct 35.0 L MCV 83.1 MCH 27.4 MCHC 33.0 RDW 17.9 H Plt Count 194 Neut % (Auto) 59.9 Lymph % (Auto) 22.9 L [place] % (Auto) 10.3 Eos % (Auto) 5.6 H Baso % (Auto) 1.3 Neut # (Auto) 2500 L PT 20.7 H INR 1.9 H Sodium 143 Potassium 4.6 Chloride 110 H Carbon Dioxide 25 BUN 22 H Creatinine 1.40 H Estimated GFR 36.7 L BUN/Creatinine Ratio 15.7 Glucose 102 Calcium 9.3 Discharge Plan Discharge Plan Patient Disposition: Home Discharge Med Rec/Prescriptions Prescriptions: New amlodipine [Norvasc] 5 mg Tablet 5 mg PO DAILY Qty: 30 RF: 3 Continue warfarin [Coumadin] 7.5 MG tablet See Label Instructions .ROUTE .COMPLEX Qty: 0 RF: 0 latanoprost 0.005 % drops 1 drp EYE-BOTH ONCE HS RF: 0 lorazepam 0.5 MG tablet 0.5 mg PO PRN PRN (Reason: Anxiety) RF: 0 mirabegron [Myrbetriq] 50 mg Tablet Extended Release 24 Hr 50 mg PO DAILY RF: 0 Follow up/Referrals: Eric Grover MD [Primary Care Provider] - 1 Week Provider Discharge Instructions Diet: Diet as Tolerated Skin/Wound/Dressing Care Report to your healthcare provider any signs of infection, such as:: chills, fever, night sweats, increased pain and unusual drainage Discharge Data Primary Care Provider: Eric Grover Attending Provider: Eric Grover Admit Date/Time: 02/09/18 12:11 Quality VTE Deep Vein Thrombosis/Pulmonary Embolism Present on Admission: No
--- NOTE | 2018-02-14 16:03 | CM.DPC ---
DCP: continued: Case received, EMR reviewed and DCP assessment noted. Dr. Pedersen was here this afternnoon and deemed pt stable for home. Went to room to check in for any final d/c needs. Pt has already left for home with no concerns noted by the care team members.
== END 2018-02-14 12:44 | disposition home or self-care (01) | DRG 690 ==
PROVIDERS: Family Medicine; Admitting Provider Family Medicine; PCP Family Medicine; Visit Provider Family Medicine
DX: N39.0 Urinary tract infection, site not specified (principal); E86.0 Dehydration; I12.9 Hypertensive chronic kidney disease with stage 1 through stage 4 chronic kidney disease, or unspecified chronic kidney disease; Z93.3 Colostomy status; B96.5 Pseudomonas (aeruginosa) (mallei) (pseudomallei) as the cause of diseases classified elsewhere; Z79.01 Long term (current) use of anticoagulants; Z86.711 Personal history of pulmonary embolism; N18.3 Chronic kidney disease, stage 3 (moderate)
CPT/HCPCS: 36415; 80048; 80053; 83605; 84145; 85025; 85610; 87077; 87086; 87186; 93005; J2543

== ENCOUNTER → 2018-03-12 12:25 | Outpatient (CLI) | payer MEDICARE, SELFPAY ==
--- NOTE | 2018-03-12 | DI.US.S_ITS ---
PROCEDURE: US RENAL COMPLETE INDICATIONS: STENT BLEEDING TECHNIQUE: Real-time scanning was performed of the kidneys and bladder, with image documentation. COMPARISON: [facility], CR, XR RETROGRADE UROGRAPHY, 12/24/2017, 16:03. [facility], US, US RENAL COMPLETE, 09/17/2017, 11:13. FINDINGS: Kidneys: Right kidney is surgically absent. Left kidney measures 14.1 cm in length and there is moderate to severe left hydronephrosis which appears similar to prior retrograde pyelogram dated 12/24/17 but is new from prior renal ultrasound dated 09/17/17. Ureteral stent is seen within the collecting system. The proximal ureter also is dilated. The mid and distal ureter not visualized. Bladder: Bladder is decompressed and not well-visualized. Miscellaneous: No free pelvic fluid. IMPRESSION: 1. Moderate to severe left hydronephrosis and a left ureteral stent is seen within the collecting system. If indicated CT IVP could be performed. Dictated by: Timothy Hernandez [facility] Interpreted: Landen Peng MD on 03/12/2018 at 13:39 Approved by: Landen Peng M.D. on 03/12/2018 at 14:29
== END ==
PROVIDERS: PCP Family Medicine; Visit Provider Family Medicine
DX: T83.83XA Hemorrhage due to genitourinary prosthetic devices, implants and grafts, initial encounter (principal); N13.30 Unspecified hydronephrosis; Z90.5 Acquired absence of kidney
CPT/HCPCS: 76770

== ENCOUNTER 2018-03-14 04:45 | Emergency (ER) | payer MEDICARE, SELFPAY ==
[2018-03-14 04:59] VITALS: BP 168/96; PULSE 92; RESP 18; TEMP 36.8; O2SAT 100; BMI 35.7
[2018-03-14 05:43] LABS: Add Manual Diff / Slide Review NO; Basophils Percent Auto 0.6 % (0-2); Eosinophils Percent Auto 2.1 % (2-4); Hematocrit 37.2 % (36-46); Hemoglobin 12.2 g/dL (12.0-16.0); Lymphocytes Percent Auto 10.3 % (25-40); Mean Corpuscular HGB Conc 32.8 % (30-36); Mean Corpuscular Hemoglobin 27.2 PG (26-34); Mean Corpuscular Volume 82.9 fL (80-100); Neutrophils Absolute Auto 5900 /uL (1500-7000); Platelet Count 200 X10^3/uL (150-400); Red Blood Cell Count 4.48 X10^6/uL (4.0-5.2); Red Cell Distribution Width 17.6 % (11.6-14.8); White Blood Cell Count 7.5 X10^3/uL (4.5-11.0)
[2018-03-14] MEDS: SODIUM CHLORIDE 0.9% 1,000 ML 150 ML IV (05:49)
[2018-03-14 05:51] LABS: Alanine Aminotransferase 16 IU/L (9-52); Albumin 3.9 g/dL (3.5-5.0); Albumin Globulin Ratio 1.1 (1.0-2.8); Alkaline Phosphatase 102 U/L (38-126); Aspartate Aminotransferase 17 IU/L (14-36); BUN Creatinine Ratio 27.1 (6-22); Bilirubin Total 0.5 mg/dL (0.2-1.3); Blood Urea Nitrogen 46 mg/dL (7-17); Calcium 9.8 mg/dL (8.4-10.2); Carbon Dioxide 22 mmol/L (22-32); Chloride 110 mmol/L (98-107); Estimated Glomerular Filt Rate 29.3 mL/min (>60); Globulin 3.5 g/dL (1.7-4.1); Glucose 97 mg/dL (80-110); HEMOLYSIS < 15 (0-50); Lipase 70 U/L (23-300); Potassium 4.4 mmol/L (3.4-5.1); Sodium 143 mmol/L (137-145); Total Protein 7.4 g/dL (6.3-8.2)
[2018-03-14 06:04] LABS: Lactate (Lactic Acid) 1.1 mmol/L (0.7-2.1)
[2018-03-14] MEDS: MORPHINE 2 MG/ML INJ 4 MG IV (06:05)
--- NOTE | 2018-03-14 06:16 | ED_ITS ---
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 She has had a stent in the left ureter since May 2017, due to hydronephrosis. 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 She has had hematuria for multiple months. She has also had multiple UTIs. The most recent ultrasound left kidney showed moderate hydronephrosis, the mid ureter was not well visualized. She is currently on antibiotics, Augmentin. Her PCM placed her on them seemingly prophylactically. She comes in tonight with ongoing hematuria. She has left flank pain. She has developed chills, no fever. She has no associated nausea vomiting. Her bowel habits are normal. She has no URI symptoms, cough or congestion. Related Data Home Medications Medication Instructions Recorded Confirmed warfarin [Coumadin] See Label Instructions .ROUTE 10/03/16 02/10/18 .COMPLEX #0 mirabegron [Myrbetriq] 50 mg PO DAILY 11/05/17 02/10/18 latanoprost 1 drp EYE-BOTH ONCE HS 02/09/18 02/10/18 lorazepam 0.5 mg PO PRN PRN 02/09/18 02/10/18 Previous Rx's Medication Instructions Recorded amlodipine [Norvasc] 5 mg PO DAILY #30 tab 02/14/18 oxycodone-acetaminophen [Percocet] 1 tab PO Q4-6H PRN #15 tab 03/14/18 Allergies Allergy/AdvReac Type Severity Reaction Status Date / Time cashew nut Allergy Severe Anaphylaxis Verified 03/14/18 05:03 ciprofloxacin [CIPROFLOXACIN] Allergy Intermediate HIVES UP Verified 03/14/18 05 :03 ARM RIGHT AFTER IV DOSE STARTED nitrofurantoin Allergy Intermediate rash, Verified 03/14/18 05:03 [From MACRODANTIN] itching Review of Systems Constitutional Reports body ache(s), Reports chills, Denies fatigue, Denies fever(s) and Denies weakness ENT Ears, Nose, Mouth, and Throat: Denies change in voice, Denies dizziness, Denies neck pain and Denies sore throat Cardiovascular Denies chest pain, Denies irregular heart rhythm, Denies lightheadedness, Denies palpitations, Denies dyspnea, Denies dyspnea on exertion and Denies orthopnea Respiratory Denies cough, Denies dyspnea and Denies dyspnea on exertion Gastrointestinal Gastrointestinal: Reports abdominal pain (LLQ), Denies change in bowel habits, Denies diarrhea, Denies nausea and Denies vomiting Genitourinary Reports hematuria, Denies dysuria, Reports flank pain, Denies urinary incontinence and Reports urinary urgency Musculoskeletal Denies back pain and Denies neck pain Integumentary/Breasts Denies erythema and Denies rash Neurologic Denies confusion, Denies dizziness and Denies weakness Psychiatric Denies anxiety and Denies confusion Endocrine Denies fatigue and Denies palpitations PFSH Medical History Retained urethral stent (Acute) S/p nephrectomy (Acute) 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) Easy bruisability (Acute) Incontinence (Acute) Leg swelling (Acute) Neuropathy (Acute) Port-A-Cath in place (Acute) Rectal carcinoma (Acute) Family History Mother Hypertension Cancer Son Hypertension Grandfather Heart disease Social History household members: family lives independently: Yes Smoking Status: Current every day smoker alcohol intake: current substance use type: does not use Exam Initial Vital Signs Initial Vital Signs: Vital Signs Temperature 98.2 F 03/14/18 04:59 Pulse Rate 92 H 03/14/18 04:59 Respiratory Rate 18 03/14/18 04:59 Blood Pressure 168/96 H 03/14/18 04:59 Pulse Oximetry 100 03/14/18 04:59 Const General: cooperative and well developed Nutritional Appearance: well nourished Orientation: alert, awake, oriented x3 and not confused Chest Chest: normal inspection of the chest Resp Effort & Inspection: normal respiratory effort, able to speak in complete sentences, no respiratory distress and no use of accessory muscles Auscultation: clear to auscultation bilaterally, no rales, no rhonchi and no wheezes Cardio Rate: regular rate Rhythm: regular rhythm Heart Sounds: no click, no gallops, no murmurs and no rubs Pulses: normal peripheral pulses GI Inspection: normal to inspection Palpation: No guarding and tender (LLQ) Auscultation: normal bowel sounds Back/Spine/Pelvis Back: No CVA tenderness Skin General: no rashes or lesions noted, No jaundice and No petechiae Neuro General: alert, oriented x3, gait normal and no focal motor deficits Speech: speech normal Extrem General: full ROM, no pedal edema and no calf tenderness Course Orders Ordered: ED Orders 03/14/18 05:15 Complete Blood Count AUTO DIFF Stat Comprehensive Metabolic Panel Stat Lactate (Lactic Acid) Stat Lipase Stat Prothrombin Time INR Stat 03/14/18 05:34 Blood Culture Stat 03/14/18 05:47 Urinalysis and Microscopic Stat Urine Culture Stat Sodium Chloride (Normal Saline 0.9%) 1,000 mls @ 150 mls/hr IV CONT GEO Last Admin: 03/14/18 05:49 Dose: 150 mls/hr Discontinued Medications Morphine Sulfate (Morphine) 4 mg IV NOW ONE Stop: 03/14/18 06:00 Last Admin: 03/14/18 06:05 Dose: 4 mg Vital Signs - 8 hr 03/14/18 04:59 Temperature 98.2 F Pulse Rate 92 H Respiratory Rate 18 Blood Pressure 168/96 H Pulse Oximetry 100 MDM - Female Genitourinary Lab Data Attestation: I reviewed the patient's lab results. Result diagrams: 03/14/18 05:15 03/14/18 05:15 Lab Results 03/14/18 03/14/18 03/14/18 Range/Units 05:15 05:15 05:15 WBC 7.5 (4.5-11.0) X10^3/uL RBC 4.48 (4.0-5.2) X10^6/uL Hgb 12.2 (12.0-16.0) g/dL Hct 37.2 (36-46) % MCV 82.9 (80-100) fL MCH 27.2 (26-34) PG MCHC 32.8 (30-36) % RDW 17.6 H (11.6-14.8) % Plt Count 200 (150-400) X10^3/uL Neut % (Auto) 78.0 H (50-75) % Lymph % (Auto) 10.3 L (25-40) % Brule % (Auto) 9.0 (3-14) % Eos % (Auto) 2.1 (2-4) % Baso % (Auto) 0.6 (0-2) % Neut # (Auto) 5900 (0379-5386) /uL PT (10.1-12.7) SECONDS INR (0.9-1.3) Sodium 143 (137-145) mmol/L Potassium 4.4 (3.4-5.1) mmol/L Chloride 110 H (98-107) mmol/L Carbon Dioxide 22 (22-32) mmol/L BUN 46 H (7-17) mg/dL Creatinine 1.70 H (0.52-1.04) mg/dL Estimated GFR 29.3 L (>60) mL/min BUN/Creatinine Ratio 27.1 H (6-22) Glucose 97 (80-110) mg/dL Lactate 1.1 (0.7-2.1) mmol/L Calcium 9.8 (8.4-10.2) mg/dL Total Bilirubin 0.5 (0.2-1.3) mg/dL AST 17 (14-36) IU/L ALT 16 (9-52) IU/L Alkaline Phosphatase 102 (38-126) U/L Total Protein 7.4 (6.3-8.2) g/dL Albumin 3.9 (3.5-5.0) g/dL Globulin 3.5 (1.7-4.1) g/dL Albumin/Globulin Ratio 1.1 (1.0-2.8) Lipase 70 (23-300) U/L Urine Color Urine Appearance Urine pH (4.5-8.0) Ur Specific Clayton (1.000-1.035) Urine Protein (Negative) Urine Glucose (UA) (Normal) g/dL Urine Ketones (NEGATIVE) Urine Occult Blood (Negative) Urine Nitrate (Negative) Urine Bilirubin (NEGATIVE) Urine Urobilinogen (0.2) E.U./dL Ur Leukocyte Esterase (NEGATIVE) Urine RBC (0-5/HPF) Urine WBC (0-5/HPF) Ur Squamous Epith Cells Triple Phos Crystals Urine Bacteria (None) Ur Culture Indicated? Micro UA Comment 03/14/18 03/14/18 Range/Units 05:15 05:47 WBC (4.5-11.0) X10^3/uL RBC (4.0-5.2) X10^6/uL Hgb (12.0-16.0) g/dL Hct (36-46) % MCV (80-100) fL MCH (26-34) PG MCHC (30-36) % RDW (11.6-14.8) % Plt Count (150-400) X10^3/uL Neut % (Auto) (50-75) % Lymph % (Auto) (25-40) % Brule % (Auto) (3-14) % Eos % (Auto) (2-4) % Baso % (Auto) (0-2) % Neut # (Auto) (1634-6293) /uL PT 57.0 H (10.1-12.7) SECONDS INR 4.8 H* (0.9-1.3) Sodium (137-145) mmol/L Potassium (3.4-5.1) mmol/L Chloride (98-107) mmol/L Carbon Dioxide (22-32) mmol/L BUN (7-17) mg/dL Creatinine (0.52-1.04) mg/dL Estimated GFR (>60) mL/min BUN/Creatinine Ratio (6-22) Glucose (80-110) mg/dL Lactate (0.7-2.1) mmol/L Calcium (8.4-10.2) mg/dL Total Bilirubin (0.2-1.3) mg/dL AST (14-36) IU/L ALT (9-52) IU/L Alkaline Phosphatase (38-126) U/L Total Protein (6.3-8.2) g/dL Albumin (3.5-5.0) g/dL Globulin (1.7-4.1) g/dL Albumin/Globulin Ratio (1.0-2.8) Lipase (23-300) U/L Urine Color Red Urine Appearance Cloudy Urine pH 8.5 H (4.5-8.0) Ur Specific [place] 1.010 (1.000-1.035) Urine Protein 2+ H (Negative) Urine Glucose (UA) Negative (Normal) g/dL Urine Ketones Negative (NEGATIVE) Urine Occult Blood 3+ H (Negative) Urine Nitrate Negative (Negative) Urine Bilirubin Negative (NEGATIVE) Urine Urobilinogen 0.2 (0.2) E.U./dL Ur Leukocyte Esterase 3+ H (NEGATIVE) Urine RBC 30-100/hpf H (0-5/HPF) Urine WBC 1-5/hpf (0-5/HPF) Ur Squamous Epith Cells 0-1 /hpf Triple Phos Crystals Occasional Urine Bacteria Many (>30) H (None) Ur Culture Indicated? Specimen cultured Micro UA Comment Not Reportable Discharge Plan Departure Patient Disposition: Home Clinical Impression: Hematuria, Hydronephrosis of left kidney, Abdominal pain, chronic, left lower quadrant, Elevated INR Instructions: Blood in Urine Activity Restrictions/Additional Instructions: Continue taking the Augmentin prescribed by Dr. Grover. Drink plenty of fluids, stay well hydrated. Stop taking your Coumadin for the next 3 days. Percocet every 4 hr as needed for pain. I have discussed her case with Dr. Grover, call him later today to establish an appointment. Return to the ER as needed. Prescriptions: New oxycodone-acetaminophen [Percocet] 5-325 mg tablet 1 tab PO Q4-6H PRN (Reason: pain) Qty: 15 RF: 0 No Action warfarin [Coumadin] 7.5 MG tablet See Label Instructions .ROUTE .COMPLEX Qty: 0 RF: 0 latanoprost 0.005 % drops 1 drp EYE-BOTH ONCE HS RF: 0 lorazepam 0.5 MG tablet 0.5 mg PO PRN PRN (Reason: Anxiety) RF: 0 amlodipine [Norvasc] 5 mg Tablet 5 mg PO DAILY Qty: 30 RF: 3 mirabegron [Myrbetriq] 50 mg Tablet Extended Release 24 Hr 50 mg PO DAILY RF: 0
[2018-03-14 06:20] LABS: INR 4.8 (0.9-1.3)
[2018-03-14 06:36] LABS: Appearance Urine UA CLOUDY; Bilirubin Urine UA NEGATIVE (NEGATIVE); Color Urine UA RED; Glucose Urine UA NEGATIVE (Normal); Ketones Urine UA NEGATIVE (NEGATIVE); Leukocyte Esterase Urine UA 3+ (NEGATIVE); Nitrite Urine UA NEGATIVE (Negative); Occult Blood Urine UA 3+ (Negative); Protein Urine UA 2+ (Negative); Urobilinogen Urine UA 0.2 E.U./dL (0.2); pH Urine UA 8.5 (4.5-8.0)
[2018-03-14 06:37] LABS: RBC Urine 30-100/HPF (0-5/HPF); Squamous Epithelial Cell Urine 0-1 /HPF; Triple Phosphate Crystal Urine Occasional; WBC Urine 1-5/HPF (0-5/HPF)
[2018-03-14 06:38] LABS: Bacteria Urine Many (>30)
[2018-03-14 06:39] LABS: Culture Indicated Urine Specimen Cultured
[2018-03-14 07:40] VITALS: BP 151/67; PULSE 79; RESP 16; O2SAT 97
== END 2018-03-14 07:45 | disposition home or self-care (01) ==
PROVIDERS: Emergency Provider Emergency Medicine; PCP Family Medicine
DX: N13.30 Unspecified hydronephrosis (principal); R10.32 Left lower quadrant pain; R31.9 Hematuria, unspecified; R79.1 Abnormal coagulation profile
CPT/HCPCS: 36591; 80053; 81001; 83605; 83690; 85025; 85610; 87077; 87086; 96361; 96374; 99283; 99284; J2270

== ENCOUNTER 2018-03-29 09:49 | Emergency (ER) | payer MEDICARE, SELFPAY ==
[2018-03-29] VITALS (9 sets, daily range): BP systolic 97–144; BP diastolic 48–81; PULSE 74–130; RESP 12–22; TEMP 36.4; O2SAT 91–100
--- NOTE | 2018-03-29 10:50 | ED.FEMALEGU ---
HPI - Female Genitourinary General Chief complaint: Urogenital-Female Stated complaint: PAIN IN SIDE,STENT IN KIDNEY,URINATING BLOOD Time Seen by Provider: 03/29/18 10:39 Source: patient and family (Son) Mode of arrival: wheelchair Limitations: no limitations History of Present Illness HPI Narrative: This is a 78-year-old female who comes to the emergency department with complaint of left flank pain. Patient has a known renal stent which they state is not placed quite properly. It does not normally cause her a lot of pain. She has also had a recurrent UTIs and urosepsis. She was admitted in January for sepsis secondary to UTI. She has had problems on and off for an entire year. Patient has also been noticing that she has had increasing blood in her urine sometimes very small clots but usually just bloody urine. Occasionally it is clear issue but not clear. Patient was seen here about 2 or 3 weeks ago was told that her urine was clean and did not show any signs of infection. She did take a Percocet about 4 days ago when her pain was starting to come back, she states it totally knocked her out so she has not been wanting to take it since then. Her flank pain has been slowly increasing over the last several days. She has not had any fevers but has felt sort of chilled. She has not been having any nausea or vomiting. She isn't having any new GI issues. She denies any abdominal pain pain is all in her flank. 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 She also has a history of colon cancer and recurrent UTIs. 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 Patient was seeing Dr. Lewis from Urology through [facility] but has seen Dr. Pritchard with Urology through [facility] once since then. Related Data Home Medications Medication Instructions Recorded Confirmed latanoprost 1 drp EYE-BOTH BEDTIME 02/09/18 03/29/18 lorazepam 0.5 mg PO PRN PRN 02/09/18 03/29/18 amlodipine [Norvasc] 5 mg PO QPM 03/29/18 03/29/18 hydrocodone-acetaminophen 1 tab PO PRN PRN 03/29/18 03/29/18 nystatin 1 applic TOPICAL DIRECTED 03/29/18 03/29/18 warfarin 5 mg PO DAILY 03/29/18 03/29/18 Previous Rx's Medication Instructions Recorded oxycodone-acetaminophen [Percocet] 1 tab PO Q4-6H PRN #15 tab 03/14/18 Allergies Allergy/AdvReac Type Severity Reaction Status Date / Time cashew nut Allergy Severe Anaphylaxis Verified 03/14/18 05:03 ciprofloxacin [CIPROFLOXACIN] Allergy Intermediate HIVES UP Verified 03/14/18 05:03 ARM RIGHT AFTER IV DOSE STARTED nitrofurantoin Allergy Intermediate rash, Verified 03/14/18 05:03 [From MACRODANTIN] itching Review of Systems Review of Systems All systems reviewed & are unremarkable except as noted in HPI and below Constitutional Reports chills, Denies fever(s), Denies lethargy and Denies weakness Cardiovascular Denies chest pain and Denies dyspnea Respiratory Denies dyspnea Gastrointestinal Gastrointestinal: Denies abdominal pain, Denies change in bowel habits, Denies diarrhea, Denies nausea and Denies vomiting Genitourinary Reports as per HPI, Reports hematuria, Reports urinary frequency, Reports dysuria, Reports flank pain (left), Reports urinary incontinence (intermittent), Denies urinary hesitancy and Denies urinary urgency Integumentary/Breasts Denies unusual bruising Neurologic Denies weakness [facility] Medical History 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 HEENT: Head normocephalic, atraumatic, EOMI, pupils reactive, face symmetric, moist mucous membranes NECK: Supple, full range of motion CARDIOVASCULAR: Regular rate and rhythm without murmurs, rubs or gallops. RESPIRATORY: Breath sounds equal bilaterally, no wheezes rales or rhonchi. ABDOMEN: Soft, nontender. Normoactive bowel sounds all 4 quadrants. No guarding or rebound, rigidity, no mass : Positive for left CVA tenderness, no right CVA tenderness. EXTREMITIES: Normal range of motion, no clubbing or edema. Neurovascularly intact NEUROLOGICAL: Cranial nerves II through XII grossly intact. Moving all extremities SKIN: Warm, dry, no petechiae, no rashes or lesions. Initial Vital Signs Initial Vital Signs: Vital Signs Temperature 97.6 F 03/29/18 10:07 Pulse Rate 98 H 03/29/18 10:07 Respiratory Rate 22 03/29/18 10:07 Blood Pressure 144/56 H 03/29/18 10:07 Pulse Oximetry 94 03/29/18 10:07 Course Orders Ordered: Discontinued Medications Hydromorphone HCl (Dilaudid) 1 mg IV NOW ONE Stop: 03/29/18 11:06 Last Admin: 03/29/18 11:05 Dose: 1 mg Sodium Chloride (Normal Saline 0.9%) 1,000 mls @ 1,000 mls/hr IV BOLUS ONE Stop: 03/29/18 15:55 Last Infusion: 03/29/18 15:58 Dose: 0 mls/hr Admin: 03/29/18 15:04 Dose: 1,000 mls/hr Morphine Sulfate (Morphine) 4 mg IV NOW ONE Stop: 03/29/18 10:41 Last Admin: 03/29/18 10:54 Dose: 4 mg Ondansetron HCl (Zofran) 4 mg IV NOW ONE Stop: 03/29/18 10:49 Last Admin: 03/29/18 10:53 Dose: 4 mg Oxycodone/Acetaminophen (Percocet 5/325) 1 tab PO NOW ONE Stop: 03/29/18 15:54 Last Admin: 03/29/18 15:58 Dose: 1 tab Vital Signs - 8 hr 03/29/18 10:07 03/29/18 10:35 03/29/18 11:50 Temperature 97.6 F Pulse Rate 98 H 93 H 87 Respiratory Rate 22 16 16 Blood Pressure 144/56 H Blood Pressure [Left Arm] 133/81 133/58 L Pulse Oximetry 94 100 95 03/29/18 12:30 03/29/18 13:08 Temperature Pulse Rate 85 Respiratory Rate 12 Blood Pressure Blood Pressure [Left Arm] 115/53 L 110/50 L Pulse Oximetry 91 MDM - Female Genitourinary Lab Data Attestation: I reviewed the patient's lab results. Result diagrams: 03/29/18 10:48 03/29/18 10:48 Lab Results 03/29/18 03/29/18 03/29/18 Range/Units 10:48 10:48 10:48 WBC 7.2 (4.5-11.0) X10^3/uL RBC 4.23 (4.0-5.2) X10^6/uL Hgb 11.7 L (12.0-16.0) g/dL Hct 35.3 L (36-46) % MCV 83.4 (80-100) fL MCH 27.7 (26-34) PG MCHC 33.2 (30-36) % RDW 16.7 H (11.6-14.8) % Plt Count 206 (150-400) X10^3/uL Neut % (Auto) 77.6 H (50-75) % Lymph % (Auto) 8.0 L (25-40) % [place] % (Auto) 12.7 (3-14) % Eos % (Auto) 0.8 L (2-4) % Baso % (Auto) 0.9 (0-2) % Neut # (Auto) 5600 (6357-8597) /uL PT 48.1 H (10.1-12.7) SECONDS INR 4.0 H (0.9-1.3) APTT 47 H D (26.4-36.2) SECONDS Sodium 137 (137-145) mmol/L Potassium 4.3 (3.4-5.1) mmol/L Chloride 105 (98-107) mmol/L Carbon Dioxide 20 L (22-32) mmol/L BUN 44 H (7-17) mg/dL Creatinine 2.50 H (0.52-1.04) mg/dL Estimated GFR 18.7 L (>60) mL/min BUN/Creatinine Ratio 17.6 (6-22) Glucose 108 (80-110) mg/dL Calcium 9.8 (8.4-10.2) mg/dL Total Bilirubin 0.6 (0.2-1.3) mg/dL AST 17 (14-36) IU/L ALT 15 (9-52) IU/L Alkaline Phosphatase 107 (38-126) U/L Total Protein 7.7 (6.3-8.2) g/dL Albumin 3.9 (3.5-5.0) g/dL Globulin 3.8 (1.7-4.1) g/dL Albumin/Globulin Ratio 1.0 (1.0-2.8) Urine Color Urine Appearance Urine pH (4.5-8.0) Ur Specific [place] (1.000-1.035) Urine Protein (Negative) Urine Glucose (UA) (Negative) g/dL Urine Ketones (NEGATIVE) Urine Occult Blood (Negative) Urine Nitrate (Negative) Urine Bilirubin (NEGATIVE) Urine Ictotest (Negative) Urine Urobilinogen (0.2) E.U./dL Ur Leukocyte Esterase (NEGATIVE) Urine RBC (0-5/HPF) Urine WBC (0-5/HPF) Ur Squamous Epith Cells Amorphous Sediment Urine Bacteria (None) Ur Culture Indicated? Micro UA Comment 03/29/18 Range/Units 14:00 WBC (4.5-11.0) X10^3/uL RBC (4.0-5.2) X10^6/uL Hgb (12.0-16.0) g/dL Hct (36-46) % MCV (80-100) fL MCH (26-34) PG MCHC (30-36) % RDW (11.6-14.8) % Plt Count (150-400) X10^3/uL Neut % (Auto) (50-75) % Lymph % (Auto) (25-40) % [place] % (Auto) (3-14) % Eos % (Auto) (2-4) % Baso % (Auto) (0-2) % Neut # (Auto) (0762-5194) /uL PT (10.1-12.7) SECONDS INR (0.9-1.3) APTT (26.4-36.2) SECONDS Sodium (137-145) mmol/L Potassium (3.4-5.1) mmol/L Chloride (98-107) mmol/L Carbon Dioxide (22-32) mmol/L BUN (7-17) mg/dL Creatinine (0.52-1.04) mg/dL Estimated GFR (>60) mL/min BUN/Creatinine Ratio (6-22) Glucose (80-110) mg/dL Calcium (8.4-10.2) mg/dL Total Bilirubin (0.2-1.3) mg/dL AST (14-36) IU/L ALT (9-52) IU/L Alkaline Phosphatase (38-126) U/L Total Protein (6.3-8.2) g/dL Albumin (3.5-5.0) g/dL Globulin (1.7-4.1) g/dL Albumin/Globulin Ratio (1.0-2.8) Urine Color Red Urine Appearance Other Urine pH 8.5 H (4.5-8.0) Ur Specific [place] 1.010 (1.000-1.035) Urine Protein 3+ H (Negative) Urine Glucose (UA) Negative (Negative) g/dL Urine Ketones Trace H (NEGATIVE) Urine Occult Blood 3+ H (Negative) Urine Nitrate Positive H (Negative) Urine Bilirubin 1+ H (NEGATIVE) Urine Ictotest Negative (Negative) Urine Urobilinogen 0.2 (0.2) E.U./dL Ur Leukocyte Esterase 2+ H (NEGATIVE) Urine RBC >100/hpf H (0-5/HPF) Urine WBC 5-10/hpf H (0-5/HPF) Ur Squamous Epith Cells 0-1 /hpf Amorphous Sediment 1+ Urine Bacteria Occasional (0-1) D (None) Ur Culture Indicated? Specimen cultured Micro UA Comment Not Reportable Imaging Data CT scan - abdomen: Radiologist's impression: [address] [address] [address] Scan Report Signed Patient: Sherlyn Ward MR#: [id number] : 1940 Acct:[id number] Age/Sex: 78 / F Date of Service: 03/29/18 Loc: ED Accession Number: [id number] Procedure: CT kidney ureter bladder (KUB) Ordering Provider: Gayle Hoff D.O. PROCEDURE: CT KIDNEY URETER BLADDER (KUB) INDICATIONS: left flank pain with history of a ureteral stent, hematuria, recurrent urinary tract infection TECHNIQUE: Noncontrast 5 mm thick sections acquired from the diaphragms to the symphysis. 5 mm thick coronal and sagittal reformats were then performed. For radiation dose reduction, the following was used: automated exposure control, adjustment of mA and/or kV according to patient size. COMPARISON: [facility], CT, ABDOMEN/PELVIS WITHOUT CONTRAS, 05/11/2017, 9:01. [facility], CT, KIDNEY/ URETER/BLADDER, 05/01/2017, 9:47. FINDINGS: Image quality: Excellent. Lung bases: Heart size is normal. There is mild atelectasis in the lung bases. Urinary system: The right kidney is surgically absent. No suspicious mass lesions or fluid collections within the surgical bed. A ureteral stent is redemonstrated within the left kidney with the proximal coil in the renal pelvis and the distal coil in the urinary bladder. There is moderate to severe left hydronephrosis which appears slightly increased from the prior study. There is also dilatation of the proximal and mid left ureter. Dependent debris is noted within the left renal pelvis. There is increased left perinephric fat stranding and fluid. A small exophytic presumed hyperdense cyst is redemonstrated in the inferior pole of the left kidney measuring approximately 0.7 cm. A simple renal cortical cyst is also redemonstrated in the left kidney measuring up to 4.5 cm. No urinary stones. The urinary bladder is partially distended with concentric bladder wall thickening. There is mild associated pericystic fat stranding. Other solid organs: Noncontrast evaluation of the liver redemonstrates 2 small hepatic cysts as well as additional smaller low-density foci which also likely represent cysts. Gallbladder demonstrates no wall thickening or calcified gallstones. There is moderate fatty atrophy of the pancreas. No pancreatic duct dilatation or discrete pancreatic mass identified. Spleen is normal in size. No adrenal nodules. Peritoneum and bowel: Unenhanced bowel loops demonstrate normal wall thickness and caliber. No free fluid or air. Nodes and vessels: No retroperitoneal or mesenteric adenopathy by size criteria. Aorta and inferior vena cava are normal in caliber. There is extensive atherosclerotic vascular calcification. Abdominal wall: Multiple bilateral abdominal wall hernias are redemonstrated. This includes a large right posterior lateral abdominal wall hernia mostly containing herniated fat. There is a left ventral abdominal wall hernia containing loops of small and large bowel the patient's ostomy site also redemonstrated. Smaller midline and paracentral hernias are also redemonstrated with small bowel contents. No evidence of bowel distraction or strangulation associated with the hernias. Pelvis: No free pelvic fluid. There is presacral soft tissue thickening consistent postsurgical changes which appears similar to the prior study. No inguinal hernias or adenopathy. Bones: No suspicious bony lesions. There is a chronic superior endplate compression deformity of the L5 vertebral body which appears similar to the prior study. Bone cement is redemonstrated within the vertebral body. IMPRESSION: 1. Moderate to severe left hydronephrosis appears slightly increased compared to the prior study with a chronic left ureteral stent redemonstrated. There is also slightly increased perinephric fluid and fat stranding as well as dilatation of the proximal to mid left ureter. 2. Concentric bladder wall thickening redemonstrated suggestive of a cystitis likely related to a urinary tract infection. Recommend correlation with urinalysis. 3. Surgical absence of the right kidney without evidence of recurrent mass or suspicious fluid collections. 4. Multiple bilateral abdominal wall hernias as described without evidence of bowel obstruction or strangulation. 5. Presacral soft tissue thickening compatible with post surgical changes appears similar to the prior study. Dictated by: Primo Espinosa M.D. on 03/29/2018 at 11:38 Approved by: Primo Espinosa M.D. on 03/29/2018 at 11:52 [facility] Narrative Medical decision making narrative: 78-year-old female comes to the emergency department with worsening hematuria. Her INR is elevated at 4 which is likely part of the issue. She does have a ureteral stent in place which probably irritates the area. Stent does not appear to have major change in location. Patient's renal function is elevated from prior at 2.5, patient has prior was averaging 1.5. Patient does appear dry with elevated BUN. According to her son she has not been eating or drinking much over the last 2 days. Patient does not have a major change in white count, she does not have a meter change in her hemoglobin. Urine culture is still pending the but still has changes consistent with UTI. Discussed with Nephrology they recommend rechecking creatinine in the next 48 hr and if still elevated and not improving after a L of fluids today and oral hydration at home to remove the stent or replace it sooner.. Patient has had issues with incontinence chronically. Discussed with patient and her son. We did a L of fluids, she has Percocet at home I gave 1 here in the emergency department to bridge her until she is home. She is to hold her warfarin until recheck. Discharge Plan Departure Patient Disposition: Home Clinical Impression: Hematuria, Ureteral stenosis, left, Acute kidney injury Discharge Date/Time: 03/29/18 16:07 Interventions: ED Discharge Assessment Last Done: 03/29/18 16:08 Activity Restrictions/Additional Instructions: Follow up with urology, call for an appointment. Stop your coumadin for 24 hours. Then have your INR rechecked before restarting. Return to have your labs redrawn as an outpatient and get your INR and renal function rechecked in 24-48 hours. Take pain medications as prescribed, you may take 1/2 tablet instead of a full tablet with you do better with this medication. He can make you sleepy do not drive, perform hazards activities or make any major decisions while taking this medication. Your urine has been sent for culture as it did show signs of infection. Return to the ER for fevers, worsening symptoms, persistent vomiting, intractable pain, increasing bleeding, chest pain, shortness of breath, passing out or other new or concerning symptoms. Prescriptions: No Action latanoprost 0.005 % drops 1 drp EYE-BOTH BEDTIME RF: 0 lorazepam 0.5 MG tablet 0.5 mg PO PRN PRN (Reason: Anxiety) RF: 0 oxycodone-acetaminophen [Percocet] 5-325 mg tablet 1 tab PO Q4-6H PRN (Reason: pain) Qty: 15 RF: 0 warfarin 5 mg tablet 5 mg PO DAILY RF: 0 hydrocodone-acetaminophen 5-325 mg tablet 1 tab PO PRN PRN (Reason: PAIN) RF: 0 nystatin 100,000 unit/gram cream 1 applic Topical DIRECTED RF: 0 amlodipine [Norvasc] 5 mg tablet 5 mg PO QPM RF: 0 Referrals: Vi Pritchard MD [Non-Staff] - Eric Grover MD [Primary Care Provider] -
[2018-03-29] MEDS: ONDANSETRON 4 MG/2 ML INJ IV (10:53)
[2018-03-29] MEDS: MORPHINE 4 MG/ML INJ IV (10:54)
--- NOTE | 2018-03-29 10:54 | ED_ITS ---
HPI - Female Genitourinary General Chief complaint: Urogenital-Female Stated complaint: PAIN IN SIDE,STENT IN KIDNEY,URINATING BLOOD Time Seen by Provider: 03/29/18 10:39 Source: patient and family (Son) Mode of arrival: wheelchair Limitations: no limitations History of Present Illness HPI Narrative: This is a 78-year-old female who comes to the emergency department with complaint of left flank pain. Patient has a known renal stent which they state is not placed quite properly. It does not normally cause her a lot of pain. She has also had a recurrent UTIs and urosepsis. She was admitted in January for sepsis secondary to UTI. She has had problems on and off for an entire year. Patient has also been noticing that she has had increasing blood in her urine sometimes very small clots but usually just bloody urine. Occasionally it is clear issue but not clear. Patient was seen here about 2 or 3 weeks ago was told that her urine was clean and did not show any signs of infection. She did take a Percocet about 4 days ago when her pain was starting to come back, she states it totally knocked her out so she has not been wanting to take it since then. Her flank pain has been slowly increasing over the last several days. She has not had any fevers but has felt sort of chilled. She has not been having any nausea or vomiting. She isn't having any new GI issues. She denies any abdominal pain pain is all in her flank. 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 She also has a history of colon cancer and recurrent UTIs. 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 Patient was seeing Dr. Lewis from Urology through [facility] but has seen Dr. Pritchard with Urology through [place] once since then. Related Data Home Medications Medication Instructions Recorded Confirmed latanoprost 1 drp EYE-BOTH BEDTIME 02/09/18 03/29/18 lorazepam 0.5 mg PO PRN PRN 02/09/18 03/29/18 amlodipine [Norvasc] 5 mg PO QPM 03/29/18 03/29/18 hydrocodone-acetaminophen 1 tab PO PRN PRN 03/29/18 03/29/18 nystatin 1 applic TOPICAL DIRECTED 03/29/18 03/29/18 warfarin 5 mg PO DAILY 03/29/18 03/29/18 Previous Rx's Medication Instructions Recorded oxycodone-acetaminophen [Percocet] 1 tab PO Q4-6H PRN #15 tab 03/14/18 Allergies Allergy/AdvReac Type Severity Reaction Status Date / Time cashew nut Allergy Severe Anaphylaxis Verified 03/14/18 05:03 ciprofloxacin [CIPROFLOXACIN] Allergy Intermediate HIVES UP Verified 03/14/18 05 :03 ARM RIGHT AFTER IV DOSE STARTED nitrofurantoin Allergy Intermediate rash, Verified 03/14/18 05:03 [From MACRODANTIN] itching Review of Systems Review of Systems All systems reviewed & are unremarkable except as noted in HPI and below Constitutional Reports chills, Denies fever(s), Denies lethargy and Denies weakness Cardiovascular Denies chest pain and Denies dyspnea Respiratory Denies dyspnea Gastrointestinal Gastrointestinal: Denies abdominal pain, Denies change in bowel habits, Denies diarrhea, Denies nausea and Denies vomiting Genitourinary Reports as per HPI, Reports hematuria, Reports urinary frequency, Reports dysuria, Reports flank pain (left), Reports urinary incontinence (intermittent) , Denies urinary hesitancy and Denies urinary urgency Integumentary/Breasts Denies unusual bruising Neurologic Denies weakness [facility] Medical History 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 HEENT: Head normocephalic, atraumatic, EOMI, pupils reactive, face symmetric, moist mucous membranes NECK: Supple, full range of motion CARDIOVASCULAR: Regular rate and rhythm without murmurs, rubs or gallops. RESPIRATORY: Breath sounds equal bilaterally, no wheezes rales or rhonchi. ABDOMEN: Soft, nontender. Normoactive bowel sounds all 4 quadrants. No guarding or rebound, rigidity, no mass : Positive for left CVA tenderness, no right CVA tenderness. EXTREMITIES: Normal range of motion, no clubbing or edema. Neurovascularly intact NEUROLOGICAL: Cranial nerves II through XII grossly intact. Moving all extremities SKIN: Warm, dry, no petechiae, no rashes or lesions. Initial Vital Signs Initial Vital Signs: Vital Signs Temperature 97.6 F 03/29/18 10:07 Pulse Rate 98 H 03/29/18 10:07 Respiratory Rate 22 03/29/18 10:07 Blood Pressure 144/56 H 03/29/18 10:07 Pulse Oximetry 94 03/29/18 10:07 Course Orders Ordered: Discontinued Medications Hydromorphone HCl (Dilaudid) 1 mg IV NOW ONE Stop: 03/29/18 11:06 Last Admin: 03/29/18 11:05 Dose: 1 mg Sodium Chloride (Normal Saline 0.9%) 1,000 mls @ 1,000 mls/hr IV BOLUS ONE Stop: 03/29/18 15:55 Last Infusion: 03/29/18 15:58 Dose: 0 mls/hr Admin: 03/29/18 15:04 Dose: 1,000 mls/hr Morphine Sulfate (Morphine) 4 mg IV NOW ONE Stop: 03/29/18 10:41 Last Admin: 03/29/18 10:54 Dose: 4 mg Ondansetron HCl (Zofran) 4 mg IV NOW ONE Stop: 03/29/18 10:49 Last Admin: 03/29/18 10:53 Dose: 4 mg Oxycodone/Acetaminophen (Percocet 5/325) 1 tab PO NOW ONE Stop: 03/29/18 15:54 Last Admin: 03/29/18 15:58 Dose: 1 tab Vital Signs - 8 hr 03/29/18 10:07 03/29/18 10:35 03/29/18 11:50 Temperature 97.6 F Pulse Rate 98 H 93 H 87 Respiratory Rate 22 16 16 Blood Pressure 144/56 H Blood Pressure [Left Arm] 133/81 133/58 L Pulse Oximetry 94 100 95 03/29/18 12:30 03/29/18 13:08 Temperature Pulse Rate 85 Respiratory Rate 12 Blood Pressure Blood Pressure [Left Arm] 115/53 L 110/50 L Pulse Oximetry 91 MDM - Female Genitourinary Lab Data Attestation: I reviewed the patient's lab results. Result diagrams: 03/29/18 10:48 03/29/18 10:48 Lab Results 03/29/18 03/29/18 03/29/18 Range/Units 10:48 10:48 10:48 WBC 7.2 (4.5-11.0) X10^3/uL RBC 4.23 (4.0-5.2) X10^6/uL Hgb 11.7 L (12.0-16.0) g/dL Hct 35.3 L (36-46) % MCV 83.4 (80-100) fL MCH 27.7 (26-34) PG MCHC 33.2 (30-36) % RDW 16.7 H (11.6-14.8) % Plt Count 206 (150-400) X10^3/uL Neut % (Auto) 77.6 H (50-75) % Lymph % (Auto) 8.0 L (25-40) % [place] % (Auto) 12.7 (3-14) % Eos % (Auto) 0.8 L (2-4) % Baso % (Auto) 0.9 (0-2) % Neut # (Auto) 5600 (3839-4252) /uL PT 48.1 H (10.1-12.7) SECONDS INR 4.0 H (0.9-1.3) APTT 47 H D (26.4-36.2) SECONDS Sodium 137 (137-145) mmol/L Potassium 4.3 (3.4-5.1) mmol/L Chloride 105 (98-107) mmol/L Carbon Dioxide 20 L (22-32) mmol/L BUN 44 H (7-17) mg/dL Creatinine 2.50 H (0.52-1.04) mg/dL Estimated GFR 18.7 L (>60) mL/min BUN/Creatinine Ratio 17.6 (6-22) Glucose 108 (80-110) mg/dL Calcium 9.8 (8.4-10.2) mg/dL Total Bilirubin 0.6 (0.2-1.3) mg/dL AST 17 (14-36) IU/L ALT 15 (9-52) IU/L Alkaline Phosphatase 107 (38-126) U/L Total Protein 7.7 (6.3-8.2) g/dL Albumin 3.9 (3.5-5.0) g/dL Globulin 3.8 (1.7-4.1) g/dL Albumin/Globulin Ratio 1.0 (1.0-2.8) Urine Color Urine Appearance Urine pH (4.5-8.0) Ur Specific [place] (1.000-1.035) Urine Protein (Negative) Urine Glucose (UA) (Negative) g/dL Urine Ketones (NEGATIVE) Urine Occult Blood (Negative) Urine Nitrate (Negative) Urine Bilirubin (NEGATIVE) Urine Ictotest (Negative) Urine Urobilinogen (0.2) E.U./dL Ur Leukocyte Esterase (NEGATIVE) Urine RBC (0-5/HPF) Urine WBC (0-5/HPF) Ur Squamous Epith Cells Amorphous Sediment Urine Bacteria (None) Ur Culture Indicated? Micro UA Comment 03/29/18 Range/Units 14:00 WBC (4.5-11.0) X10^3/uL RBC (4.0-5.2) X10^6/uL Hgb (12.0-16.0) g/dL Hct (36-46) % MCV (80-100) fL MCH (26-34) PG MCHC (30-36) % RDW (11.6-14.8) % Plt Count (150-400) X10^3/uL Neut % (Auto) (50-75) % Lymph % (Auto) (25-40) % [place] % (Auto) (3-14) % Eos % (Auto) (2-4) % Baso % (Auto) (0-2) % Neut # (Auto) (7463-7734) /uL PT (10.1-12.7) SECONDS INR (0.9-1.3) APTT (26.4-36.2) SECONDS Sodium (137-145) mmol/L Potassium (3.4-5.1) mmol/L Chloride (98-107) mmol/L Carbon Dioxide (22-32) mmol/L BUN (7-17) mg/dL Creatinine (0.52-1.04) mg/dL Estimated GFR (>60) mL/min BUN/Creatinine Ratio (6-22) Glucose (80-110) mg/dL Calcium (8.4-10.2) mg/dL Total Bilirubin (0.2-1.3) mg/dL AST (14-36) IU/L ALT (9-52) IU/L Alkaline Phosphatase (38-126) U/L Total Protein (6.3-8.2) g/dL Albumin (3.5-5.0) g/dL Globulin (1.7-4.1) g/dL Albumin/Globulin Ratio (1.0-2.8) Urine Color Red Urine Appearance Other Urine pH 8.5 H (4.5-8.0) Ur Specific [place] 1.010 (1.000-1.035) Urine Protein 3+ H (Negative) Urine Glucose (UA) Negative (Negative) g/dL Urine Ketones Trace H (NEGATIVE) Urine Occult Blood 3+ H (Negative) Urine Nitrate Positive H (Negative) Urine Bilirubin 1+ H (NEGATIVE) Urine Ictotest Negative (Negative) Urine Urobilinogen 0.2 (0.2) E.U./dL Ur Leukocyte Esterase 2+ H (NEGATIVE) Urine RBC >100/hpf H (0-5/HPF) Urine WBC 5-10/hpf H (0-5/HPF) Ur Squamous Epith Cells 0-1 /hpf Amorphous Sediment 1+ Urine Bacteria Occasional (0-1) D (None) Ur Culture Indicated? Specimen cultured Micro UA Comment Not Reportable Imaging Data CT scan - abdomen: Radiologist's impression: [address] [address] [address] Scan Report Signed Patient: Sherlyn Ward MR#: [id number] : 1940 Acct:[id number] Age/Sex: 78 / F Date of Service: 03/29/18 Loc: ED Accession Number: [id number] Procedure: CT kidney ureter bladder (KUB) Ordering Provider: Gayle Hoff D.O. PROCEDURE: CT KIDNEY URETER BLADDER (KUB) INDICATIONS: left flank pain with history of a ureteral stent, hematuria, recurrent urinary tract infection TECHNIQUE: Noncontrast 5 mm thick sections acquired from the diaphragms to the symphysis. 5 mm thick coronal and sagittal reformats were then performed. For radiation dose reduction, the following was used: automated exposure control, adjustment of mA and/or kV according to patient size. COMPARISON: [facility], CT, ABDOMEN/PELVIS WITHOUT CONTRAS, 05/11/2017, 9: 01. [facility], CT, KIDNEY/ URETER/BLADDER, 05/01/2017, 9:47. FINDINGS: Image quality: Excellent. Lung bases: Heart size is normal. There is mild atelectasis in the lung bases. Urinary system: The right kidney is surgically absent. No suspicious mass lesions or fluid collections within the surgical bed. A ureteral stent is redemonstrated within the left kidney with the proximal coil in the renal pelvis and the distal coil in the urinary bladder. There is moderate to severe left hydronephrosis which appears slightly increased from the prior study. There is also dilatation of the proximal and mid left ureter. Dependent debris is noted within the left renal pelvis. There is increased left perinephric fat stranding and fluid. A small exophytic presumed hyperdense cyst is redemonstrated in the inferior pole of the left kidney measuring approximately 0.7 cm. A simple renal cortical cyst is also redemonstrated in the left kidney measuring up to 4.5 cm. No urinary stones. The urinary bladder is partially distended with concentric bladder wall thickening. There is mild associated pericystic fat stranding. Other solid organs: Noncontrast evaluation of the liver redemonstrates 2 small hepatic cysts as well as additional smaller low-density foci which also likely represent cysts. Gallbladder demonstrates no wall thickening or calcified gallstones. There is moderate fatty atrophy of the pancreas. No pancreatic duct dilatation or discrete pancreatic mass identified. Spleen is normal in size. No adrenal nodules. Peritoneum and bowel: Unenhanced bowel loops demonstrate normal wall thickness and caliber. No free fluid or air. Nodes and vessels: No retroperitoneal or mesenteric adenopathy by size criteria. Aorta and inferior vena cava are normal in caliber. There is extensive atherosclerotic vascular calcification. Abdominal wall: Multiple bilateral abdominal wall hernias are redemonstrated. This includes a large right posterior lateral abdominal wall hernia mostly containing herniated fat. There is a left ventral abdominal wall hernia containing loops of small and large bowel the patient's ostomy site also redemonstrated. Smaller midline and paracentral hernias are also redemonstrated with small bowel contents. No evidence of bowel distraction or strangulation associated with the hernias. Pelvis: No free pelvic fluid. There is presacral soft tissue thickening consistent postsurgical changes which appears similar to the prior study. No inguinal hernias or adenopathy. Bones: No suspicious bony lesions. There is a chronic superior endplate compression deformity of the L5 vertebral body which appears similar to the prior study. Bone cement is redemonstrated within the vertebral body. IMPRESSION: 1. Moderate to severe left hydronephrosis appears slightly increased compared to the prior study with a chronic left ureteral stent redemonstrated. There is also slightly increased perinephric fluid and fat stranding as well as dilatation of the proximal to mid left ureter. 2. Concentric bladder wall thickening redemonstrated suggestive of a cystitis likely related to a urinary tract infection. Recommend correlation with urinalysis. 3. Surgical absence of the right kidney without evidence of recurrent mass or suspicious fluid collections. 4. Multiple bilateral abdominal wall hernias as described without evidence of bowel obstruction or strangulation. 5. Presacral soft tissue thickening compatible with post surgical changes appears similar to the prior study. Dictated by: Primo Espinosa M.D. on 03/29/2018 at 11:38 Approved by: Primo Espinosa M.D. on 03/29/2018 at 11:52 [facility] Narrative Medical decision making narrative: 78-year-old female comes to the emergency department with worsening hematuria. Her INR is elevated at 4 which is likely part of the issue. She does have a ureteral stent in place which probably irritates the area. Stent does not appear to have major change in location. Patient's renal function is elevated from prior at 2.5, patient has prior was averaging 1.5. Patient does appear dry with elevated BUN. According to her son she has not been eating or drinking much over the last 2 days. Patient does not have a major change in white count, she does not have a meter change in her hemoglobin. Urine culture is still pending the but still has changes consistent with UTI. Discussed with Nephrology they recommend rechecking creatinine in the next 48 hr and if still elevated and not improving after a L of fluids today and oral hydration at home to remove the stent or replace it sooner.. Patient has had issues with incontinence chronically. Discussed with patient and her son. We did a L of fluids, she has Percocet at home I gave 1 here in the emergency department to bridge her until she is home. She is to hold her warfarin until recheck. Discharge Plan Departure Patient Disposition: Home Clinical Impression: Hematuria, Ureteral stenosis, left, Acute kidney injury Discharge Date/Time: 03/29/18 16:07 Interventions: ED Discharge Assessment Last Done: 03/29/18 16:08 Activity Restrictions/Additional Instructions: Follow up with urology, call for an appointment. Stop your coumadin for 24 hours. Then have your INR rechecked before restarting. Return to have your labs redrawn as an outpatient and get your INR and renal function rechecked in 24-48 hours. Take pain medications as prescribed, you may take 1/2 tablet instead of a full tablet with you do better with this medication. He can make you sleepy do not drive, perform hazards activities or make any major decisions while taking this medication. Your urine has been sent for culture as it did show signs of infection. Return to the ER for fevers, worsening symptoms, persistent vomiting, intractable pain, increasing bleeding, chest pain, shortness of breath, passing out or other new or concerning symptoms. Prescriptions: No Action latanoprost 0.005 % drops 1 drp EYE-BOTH BEDTIME RF: 0 lorazepam 0.5 MG tablet 0.5 mg PO PRN PRN (Reason: Anxiety) RF: 0 oxycodone-acetaminophen [Percocet] 5-325 mg tablet 1 tab PO Q4-6H PRN (Reason: pain) Qty: 15 RF: 0 warfarin 5 mg tablet 5 mg PO DAILY RF: 0 hydrocodone-acetaminophen 5-325 mg tablet 1 tab PO PRN PRN (Reason: PAIN) RF: 0 nystatin 100,000 unit/gram cream 1 applic Topical DIRECTED RF: 0 amlodipine [Norvasc] 5 mg tablet 5 mg PO QPM RF: 0 Referrals: Vi Pritchard MD [Non-Staff] - Eric Grover MD [Primary Care Provider] -
--- NOTE | 2018-03-29 10:54 | PC.NURSE ---
pt with one kidney, left with stent , due to change in the end of march, developed severe pain left flank, very tender with palpation. denies chills and fever, with nausea no vomiting.
[2018-03-29] MEDS: HYDROMORPHONE 1 MG INJ IV (11:05)
[2018-03-29 11:07] LABS: Add Manual Diff / Slide Review NO; Basophils Percent Auto 0.9 % (0-2); Eosinophils Percent Auto 0.8 % (2-4); Hematocrit 35.3 % (36-46); Hemoglobin 11.7 g/dL (12.0-16.0); Mean Corpuscular HGB Conc 33.2 % (30-36); Mean Corpuscular Hemoglobin 27.7 PG (26-34); Mean Corpuscular Volume 83.4 fL (80-100); Monocytes Percent Auto 12.7 % (3-14); Neutrophils Absolute Auto 5600 /uL (1500-7000); Neutrophils Percent Auto 77.6 % (50-75); Platelet Count 206 X10^3/uL (150-400); Red Blood Cell Count 4.23 X10^6/uL (4.0-5.2); Red Cell Distribution Width 16.7 % (11.6-14.8); White Blood Cell Count 7.2 X10^3/uL (4.5-11.0)
[2018-03-29 11:09] LABS: Prothrombin Time 48.1 SECONDS (10.1-12.7)
[2018-03-29 11:12] LABS: PTT Partial Thromboplastin Tim 47 SECONDS (26.4-36.2)
[2018-03-29 11:13] LABS: Alanine Aminotransferase 15 IU/L (9-52); Albumin 3.9 g/dL (3.5-5.0); Alkaline Phosphatase 107 U/L (38-126); Aspartate Aminotransferase 17 IU/L (14-36); BUN Creatinine Ratio 17.6 (6-22); Bilirubin Total 0.6 mg/dL (0.2-1.3); Blood Urea Nitrogen 44 mg/dL (7-17); Calcium 9.8 mg/dL (8.4-10.2); Carbon Dioxide 20 mmol/L (22-32); Chloride 105 mmol/L (98-107); Estimated Glomerular Filt Rate 18.7 mL/min (>60); Globulin 3.8 g/dL (1.7-4.1); Glucose 108 mg/dL (80-110); HEMOLYSIS < 15 (0-50); Potassium 4.3 mmol/L (3.4-5.1); Sodium 137 mmol/L (137-145); Total Protein 7.7 g/dL (6.3-8.2)
[2018-03-29 14:25] LABS: Bilirubin Urine UA 1+ (NEGATIVE); Color Urine UA RED; Glucose Urine UA NEGATIVE (Negative); Ketones Urine UA TRACE (NEGATIVE); Leukocyte Esterase Urine UA 2+ (NEGATIVE); Nitrite Urine UA POSITIVE (Negative); Occult Blood Urine UA 3+ (Negative); Protein Urine UA 3+ (Negative); Urobilinogen Urine UA 0.2 E.U./dL (0.2); pH Urine UA 8.5 (4.5-8.0)
[2018-03-29 14:26] LABS: Appearance Urine UA OTHER
[2018-03-29 14:27] LABS: RBC Urine >100/HPF (0-5/HPF)
[2018-03-29 14:28] LABS: Amorphous Sediment Urine 1+; Bacteria Urine Occasional (0-1); Culture Indicated Urine Specimen Cultured; Squamous Epithelial Cell Urine 0-1 /HPF; WBC Urine 5-10/HPF (0-5/HPF)
[2018-03-29 14:39] LABS: Ictotest Urine Negative (Negative)
[2018-03-29] MEDS: SODIUM CHLORIDE 0.9% 1,000 ML 1000 ML IV (15:04)
[2018-03-29] MEDS: OXYCODONE/ACETAMINOPHEN 5/325 TABLET 1 TAB PO (15:58)
== END 2018-03-29 16:07 | disposition home or self-care (01) ==
PROVIDERS: Emergency Medicine; Emergency Provider Emergency Medicine; PCP Family Medicine
DX: N17.9 Acute kidney failure, unspecified (principal); N13.5 Crossing vessel and stricture of ureter without hydronephrosis; R31.9 Hematuria, unspecified
CPT/HCPCS: 36591; 74176; 80053; 81001; 85025; 85610; 85730; 87077; 87086; 87186; 96361; 96374; 96375; 99284; 99285; J1170; J2270; J2405

== ENCOUNTER 2018-03-31 02:02 | Emergency (ER) | payer MEDICARE, SELFPAY ==
--- NOTE | 2018-03-31 02:06 | ED.ABDPAIN ---
HPI - Abdominal Pain General Chief Complaint: Urogenital-Female Stated Complaint: Kidney pain Time Seen by Provider: 03/31/18 02:05 Source: patient and EMS Mode of arrival: EMS Limitations: no limitations History of Present Illness HPI narrative: 78F daily smoker returns to ED by EMS with chief complaint of worsening L flank pain. She was seen 2 days ago with complaint of L flank pain and hematuria. She has a know ureteral stent and there is a question to whether it's placed appropriately or not. She has had recurrent UTI and sepsis. She denies fever or chills, but has had nausea and feels weak and lightheaded. 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 The pain in her flank is worse with motion and improves with rest. She has a history with Dr. Lewis of [facility] U[facility], but has since transferred her care to [place] with Dr. Pritchard. INR has been a bit elevated lately with recent measurements of 4.8 on 03/16 and 4.0 on 03/29. At last visit creatinine had bumped from baseline of 1.5 to 2.5. She was given fluids and felt better and went home with encouragement to return if worse, and at minimum repeat labs. Urine culture notes G- bacilli. Related Data Home Medications Medication Instructions Recorded Confirmed latanoprost 1 drp EYE-BOTH BEDTIME 02/09/18 03/29/18 lorazepam 0.5 mg PO PRN PRN 02/09/18 03/29/18 amlodipine [Norvasc] 5 mg PO QPM 03/29/18 03/29/18 hydrocodone-acetaminophen 1 tab PO PRN PRN 03/29/18 03/29/18 nystatin 1 applic TOPICAL DIRECTED 03/29/18 03/29/18 warfarin 5 mg PO DAILY 03/29/18 03/29/18 Previous Rx's Medication Instructions Recorded oxycodone-acetaminophen [Percocet] 1 tab PO Q4-6H PRN #15 tab 03/14/18 Allergies Allergy/AdvReac Type Severity Reaction Status Date / Time cashew nut Allergy Severe Anaphylaxis Verified 03/14/18 05:03 ciprofloxacin [CIPROFLOXACIN] Allergy Intermediate HIVES UP Verified 03/14/18 05:03 ARM RIGHT AFTER IV DOSE STARTED nitrofurantoin Allergy Intermediate rash, Verified 03/14/18 05:03 [From MACRODANTIN] itching Review of Systems Review of Systems All systems reviewed & are unremarkable except as noted in HPI and below Constitutional Denies chills, Denies fever(s), Denies lethargy, Reports poor appetite and Reports weakness Eyes Denies change in vision, Denies eye discharge, Denies irritation and Denies loss of vision ENT Ears, Nose, Mouth, and Throat: Denies change in voice, Denies neck pain and Denies sore throat Cardiovascular Denies chest pain, Denies irregular heart rhythm, Denies lightheadedness, Denies palpitations, Denies dyspnea, Denies dyspnea on exertion and Denies orthopnea Respiratory Denies cough, Denies dyspnea, Denies dyspnea on exertion and Denies wheezing Gastrointestinal Gastrointestinal: Denies abdominal pain, Denies change in bowel habits, Denies diarrhea, Denies nausea and Denies vomiting Genitourinary Denies hematuria, Denies flank pain, Denies urinary incontinence and Denies urinary urgency Musculoskeletal Reports back pain and Denies neck pain Integumentary/Breasts Denies pruritus, Denies erythema, Denies rash and Denies wounds Neurologic Denies confusion, Denies loss of vision and Reports weakness Psychiatric Denies anxiety, Denies confusion, Denies depression, Denies homicidal ideation and Denies suicidal ideation Endocrine Denies palpitations Hematologic/Lymphatic Denies easy bruising Allergic/Immunologic Denies wheezing PFSH Medical History 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 She is in significant pain with any motion and appears weak. She has dry mucous membranes and tenting HEAD: Atraumatic. Normocephalic. No temporal or scalp tenderness. EYES: Pupils equal round and reactive. Extraocular motions intact. No scleral icterus. No injection or drainage. ENT: Dry mucous membranes. Nose without bleeding, purulent drainage or septal hematoma. Throat without erythema, tonsillar hypertrophy or exudate. Uvula midline. Airway patent. NECK: Trachea midline. No JVD or lymphadenopathy. Supple, nontender, no meningeal signs. CARDIOVASCULAR: Regular rate and rhythm without murmurs, gallops, or rubs. RESPIRATORY: Clear to auscultation. Breath sounds equal bilaterally. No wheezes, rales, or rhonchi. GASTROINTESTINAL: Abdomen soft, non-tender, nondistended. No hepato-splenomegaly, or palpable masses. No guarding. EXTREMITIES: No clubbing, cyanosis, or edema. No joint tenderness, effusion, or edema noted. BACK: Nontender without deformity or crepitance. Severe L flank tenderness NEURO: AOx3. SKIN: Tenting No rash or erythema. Initial Vital Signs Initial Vital Signs: Vital Signs Temperature 98.6 F 03/31/18 02:07 Pulse Rate 73 03/31/18 02:07 Respiratory Rate 18 03/31/18 02:07 Blood Pressure 129/63 03/31/18 02:07 Pulse Oximetry 99 03/31/18 02:07 Course Orders Ordered: ED Orders 03/31/18 02:08 US renal complete Stat 03/31/18 02:20 Basic Metabolic Panel Stat Complete Blood Count AUTO DIFF Stat Prothrombin Time INR Stat Discontinued Medications Hydromorphone HCl (Dilaudid) 1 mg IV NOW ONE Stop: 03/31/18 03:55 Last Admin: 03/31/18 03:59 Dose: 1 mg Ceftriaxone Sodium/Dextrose (Rocephin) 1 gm in 50 mls @ 100 mls/hr IV NOW ONE Stop: 03/31/18 02:37 Last Admin: 03/31/18 03:36 Dose: 100 mls/hr Sodium Chloride (Normal Saline 0.9%) 1,000 mls @ 1,000 mls/hr IV BOLUS ONE Stop: 03/31/18 03:07 Last Infusion: 03/31/18 03:38 Dose: 200 mls/hr Admin: 03/31/18 03:36 Dose: 1,000 mls/hr Consultations Consultation #1: call to Urology at [facility] whom agree that patient needs transfer, call to hospitalist to manage Consultation #2: Hospitalist at [facility] is happy to accept. We will hold off on any coumadin reversal until urology weighs in Vital Signs - 8 hr 03/31/18 02:07 Temperature 98.6 F Pulse Rate 73 Respiratory Rate 18 Blood Pressure 129/63 Pulse Oximetry 99 MDM - Abdominal Pain Lab Data Result diagrams: 03/31/18 02:20 03/31/18 02:20 Lab Results 03/31/18 03/31/18 03/31/18 Range/Units 02:20 02:20 02:20 WBC 9.9 (4.5-11.0) X10^3/uL RBC 3.98 L (4.0-5.2) X10^6/uL Hgb 10.9 L (12.0-16.0) g/dL Hct 32.9 L (36-46) % MCV 82.6 (80-100) fL MCH 27.4 (26-34) PG MCHC 33.2 (30-36) % RDW 17.1 H (11.6-14.8) % Plt Count 221 (150-400) X10^3/uL Neut % (Auto) 81.5 H (50-75) % Lymph % (Auto) 6.3 L (25-40) % [place] % (Auto) 11.8 (3-14) % Eos % (Auto) 0.1 L (2-4) % Baso % (Auto) 0.3 (0-2) % Neut # (Auto) 8000 H (8167-8949) /uL PT 74.1 H D (10.1-12.7) SECONDS INR 6.2 H* (0.9-1.3) Sodium 137 (137-145) mmol/L Potassium 4.4 (3.4-5.1) mmol/L Chloride 106 (98-107) mmol/L Carbon Dioxide 17 L (22-32) mmol/L BUN 53 H (7-17) mg/dL Creatinine 3.80 H (0.52-1.04) mg/dL Estimated GFR 11.5 L (>60) mL/min BUN/Creatinine Ratio 13.9 (6-22) Glucose 113 H (80-110) mg/dL Calcium 9.5 (8.4-10.2) mg/dL Imaging Data Renal US: Radiologist's impression: Marked left hydronephrosis.. Proximal left hydroureter. Left ureteral stent appears to be in dilated proximal left ureter Discharge Plan Departure Patient Disposition: [facility] Clinical Impression: Acute renal failure, Acute UTI, Acute dehydration, Occlusion of ureteral stent Prescriptions: No Action latanoprost 0.005 % drops 1 drp EYE-BOTH BEDTIME RF: 0 lorazepam 0.5 MG tablet 0.5 mg PO PRN PRN (Reason: Anxiety) RF: 0 oxycodone-acetaminophen [Percocet] 5-325 mg tablet 1 tab PO Q4-6H PRN (Reason: pain) Qty: 15 RF: 0 warfarin 5 mg tablet 5 mg PO DAILY RF: 0 hydrocodone-acetaminophen 5-325 mg tablet 1 tab PO PRN PRN (Reason: PAIN) RF: 0 nystatin 100,000 unit/gram cream 1 applic Topical DIRECTED RF: 0 amlodipine [Norvasc] 5 mg tablet 5 mg PO QPM RF: 0
[2018-03-31 02:07] VITALS: BP 129/63; PULSE 73; RESP 18; TEMP 37; O2SAT 99; BMI 35.7
--- NOTE | 2018-03-31 02:08 | DI.US.S_ITS ---
PROCEDURE: US RENAL COMPLETE INDICATIONS: LEFT FLANK PAIN; STENT IN PLACE TECHNIQUE: Real-time scanning was performed of the kidneys and bladder, with image documentation. COMPARISON: None. FINDINGS: Image quality limited by patient body habitus. Kidneys: Kidneys are normal in size. Right kidney is surgically absent. Left kidney measures 11.0 cm long. Severe left-sided hydroureteral nephrosis is noted. Stent is identified in the proximal left ureter. No suspicious solid mass lesions. Bladder: Bladder is completely decompressed at time of imaging which precludes ultrasound evaluation. Miscellaneous: No free pelvic fluid. IMPRESSION: Severe left-sided hydronephrosis. Left ureteral stent identified in the proximal left ureter. Dictated by: Yamila Pyle MD, PhD on 03/31/2018 at 8:42 Approved by: Yamila Pyle MD, PhD on 03/31/2018 at 8:44
--- NOTE | 2018-03-31 02:14 | ED_ITS ---
HPI - Abdominal Pain General Chief Complaint: Urogenital-Female Stated Complaint: Kidney pain Time Seen by Provider: 03/31/18 02:05 Source: patient and EMS Mode of arrival: EMS Limitations: no limitations History of Present Illness HPI narrative: 78F daily smoker returns to ED by EMS with chief complaint of worsening L flank pain. She was seen 2 days ago with complaint of L flank pain and hematuria. She has a know ureteral stent and there is a question to whether it's placed appropriately or not. She has had recurrent UTI and sepsis. She denies fever or chills, but has had nausea and feels weak and lightheaded. 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 The pain in her flank is worse with motion and improves with rest. She has a history with Dr. Lewis of [facility], but has since transferred her care to [place] with Dr. Pritchard. INR has been a bit elevated lately with recent measurements of 4.8 on 03/16 and 4.0 on 03/29. At last visit creatinine had bumped from baseline of 1.5 to 2.5. She was given fluids and felt better and went home with encouragement to return if worse, and at minimum repeat labs. Urine culture notes G- bacilli. Related Data Home Medications Medication Instructions Recorded Confirmed latanoprost 1 drp EYE-BOTH BEDTIME 02/09/18 03/29/18 lorazepam 0.5 mg PO PRN PRN 02/09/18 03/29/18 amlodipine [Norvasc] 5 mg PO QPM 03/29/18 03/29/18 hydrocodone-acetaminophen 1 tab PO PRN PRN 03/29/18 03/29/18 nystatin 1 applic TOPICAL DIRECTED 03/29/18 03/29/18 warfarin 5 mg PO DAILY 03/29/18 03/29/18 Previous Rx's Medication Instructions Recorded oxycodone-acetaminophen [Percocet] 1 tab PO Q4-6H PRN #15 tab 03/14/18 Allergies Allergy/AdvReac Type Severity Reaction Status Date / Time cashew nut Allergy Severe Anaphylaxis Verified 03/14/18 05:03 ciprofloxacin [CIPROFLOXACIN] Allergy Intermediate HIVES UP Verified 03/14/18 05 :03 ARM RIGHT AFTER IV DOSE STARTED nitrofurantoin Allergy Intermediate rash, Verified 03/14/18 05:03 [From MACRODANTIN] itching Review of Systems Review of Systems All systems reviewed & are unremarkable except as noted in HPI and below Constitutional Denies chills, Denies fever(s), Denies lethargy, Reports poor appetite and Reports weakness Eyes Denies change in vision, Denies eye discharge, Denies irritation and Denies loss of vision ENT Ears, Nose, Mouth, and Throat: Denies change in voice, Denies neck pain and Denies sore throat Cardiovascular Denies chest pain, Denies irregular heart rhythm, Denies lightheadedness, Denies palpitations, Denies dyspnea, Denies dyspnea on exertion and Denies orthopnea Respiratory Denies cough, Denies dyspnea, Denies dyspnea on exertion and Denies wheezing Gastrointestinal Gastrointestinal: Denies abdominal pain, Denies change in bowel habits, Denies diarrhea, Denies nausea and Denies vomiting Genitourinary Denies hematuria, Denies flank pain, Denies urinary incontinence and Denies urinary urgency Musculoskeletal Reports back pain and Denies neck pain Integumentary/Breasts Denies pruritus, Denies erythema, Denies rash and Denies wounds Neurologic Denies confusion, Denies loss of vision and Reports weakness Psychiatric Denies anxiety, Denies confusion, Denies depression, Denies homicidal ideation and Denies suicidal ideation Endocrine Denies palpitations Hematologic/Lymphatic Denies easy bruising Allergic/Immunologic Denies wheezing PFSH Medical History 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 She is in significant pain with any motion and appears weak. She has dry mucous membranes and tenting HEAD: Atraumatic. Normocephalic. No temporal or scalp tenderness. EYES: Pupils equal round and reactive. Extraocular motions intact. No scleral icterus. No injection or drainage. ENT: Dry mucous membranes. Nose without bleeding, purulent drainage or septal hematoma. Throat without erythema, tonsillar hypertrophy or exudate. Uvula midline. Airway patent. NECK: Trachea midline. No JVD or lymphadenopathy. Supple, nontender, no meningeal signs. CARDIOVASCULAR: Regular rate and rhythm without murmurs, gallops, or rubs. RESPIRATORY: Clear to auscultation. Breath sounds equal bilaterally. No wheezes , rales, or rhonchi. GASTROINTESTINAL: Abdomen soft, non-tender, nondistended. No hepato-splenomegaly , or palpable masses. No guarding. EXTREMITIES: No clubbing, cyanosis, or edema. No joint tenderness, effusion, or edema noted. BACK: Nontender without deformity or crepitance. Severe L flank tenderness NEURO: AOx3. SKIN: Tenting No rash or erythema. Initial Vital Signs Initial Vital Signs: Vital Signs Temperature 98.6 F 03/31/18 02:07 Pulse Rate 73 03/31/18 02:07 Respiratory Rate 18 03/31/18 02:07 Blood Pressure 129/63 03/31/18 02:07 Pulse Oximetry 99 03/31/18 02:07 Course Orders Ordered: ED Orders 03/31/18 02:08 US renal complete Stat 03/31/18 02:20 Basic Metabolic Panel Stat Complete Blood Count AUTO DIFF Stat Prothrombin Time INR Stat Discontinued Medications Hydromorphone HCl (Dilaudid) 1 mg IV NOW ONE Stop: 03/31/18 03:55 Last Admin: 03/31/18 03:59 Dose: 1 mg Ceftriaxone Sodium/Dextrose (Rocephin) 1 gm in 50 mls @ 100 mls/hr IV NOW ONE Stop: 03/31/18 02:37 Last Admin: 03/31/18 03:36 Dose: 100 mls/hr Sodium Chloride (Normal Saline 0.9%) 1,000 mls @ 1,000 mls/hr IV BOLUS ONE Stop: 03/31/18 03:07 Last Infusion: 03/31/18 03:38 Dose: 200 mls/hr Admin: 03/31/18 03:36 Dose: 1,000 mls/hr Consultations Consultation #1: call to Urology at [facility] whom agree that patient needs transfer, call to hospitalist to manage Consultation #2: Hospitalist at [facility] is happy to accept. We will hold off on any coumadin reversal until urology weighs in Vital Signs - 8 hr 03/31/18 02:07 Temperature 98.6 F Pulse Rate 73 Respiratory Rate 18 Blood Pressure 129/63 Pulse Oximetry 99 MDM - Abdominal Pain Lab Data Result diagrams: 03/31/18 02:20 03/31/18 02:20 Lab Results 03/31/18 03/31/18 03/31/18 Range/Units 02:20 02:20 02:20 WBC 9.9 (4.5-11.0) X10^3/uL RBC 3.98 L (4.0-5.2) X10^6/uL Hgb 10.9 L (12.0-16.0) g/dL Hct 32.9 L (36-46) % MCV 82.6 (80-100) fL MCH 27.4 (26-34) PG MCHC 33.2 (30-36) % RDW 17.1 H (11.6-14.8) % Plt Count 221 (150-400) X10^3/uL Neut % (Auto) 81.5 H (50-75) % Lymph % (Auto) 6.3 L (25-40) % [place] % (Auto) 11.8 (3-14) % Eos % (Auto) 0.1 L (2-4) % Baso % (Auto) 0.3 (0-2) % Neut # (Auto) 8000 H (8008-8474) /uL PT 74.1 H D (10.1-12.7) SECONDS INR 6.2 H* (0.9-1.3) Sodium 137 (137-145) mmol/L Potassium 4.4 (3.4-5.1) mmol/L Chloride 106 (98-107) mmol/L Carbon Dioxide 17 L (22-32) mmol/L BUN 53 H (7-17) mg/dL Creatinine 3.80 H (0.52-1.04) mg/dL Estimated GFR 11.5 L (>60) mL/min BUN/Creatinine Ratio 13.9 (6-22) Glucose 113 H (80-110) mg/dL Calcium 9.5 (8.4-10.2) mg/dL Imaging Data Renal US: Radiologist's impression: Marked left hydronephrosis.. Proximal left hydroureter. Left ureteral stent appears to be in dilated proximal left ureter Discharge Plan Departure Patient Disposition: [facility] Clinical Impression: Acute renal failure, Acute UTI, Acute dehydration, Occlusion of ureteral stent Prescriptions: No Action latanoprost 0.005 % drops 1 drp EYE-BOTH BEDTIME RF: 0 lorazepam 0.5 MG tablet 0.5 mg PO PRN PRN (Reason: Anxiety) RF: 0 oxycodone-acetaminophen [Percocet] 5-325 mg tablet 1 tab PO Q4-6H PRN (Reason: pain) Qty: 15 RF: 0 warfarin 5 mg tablet 5 mg PO DAILY RF: 0 hydrocodone-acetaminophen 5-325 mg tablet 1 tab PO PRN PRN (Reason: PAIN) RF: 0 nystatin 100,000 unit/gram cream 1 applic Topical DIRECTED RF: 0 amlodipine [Norvasc] 5 mg tablet 5 mg PO QPM RF: 0
[2018-03-31 02:31] LABS: Add Manual Diff / Slide Review NO; Basophils Percent Auto 0.3 % (0-2); Eosinophils Percent Auto 0.1 % (2-4); Hematocrit 32.9 % (36-46); Hemoglobin 10.9 g/dL (12.0-16.0); Lymphocytes Percent Auto 6.3 % (25-40); Mean Corpuscular HGB Conc 33.2 % (30-36); Mean Corpuscular Hemoglobin 27.4 PG (26-34); Mean Corpuscular Volume 82.6 fL (80-100); Monocytes Percent Auto 11.8 % (3-14); Neutrophils Absolute Auto 8000 /uL (1500-7000); Neutrophils Percent Auto 81.5 % (50-75); Platelet Count 221 X10^3/uL (150-400); Red Blood Cell Count 3.98 X10^6/uL (4.0-5.2); Red Cell Distribution Width 17.1 % (11.6-14.8); White Blood Cell Count 9.9 X10^3/uL (4.5-11.0)
[2018-03-31 02:38] LABS: BUN Creatinine Ratio 13.9 (6-22); Blood Urea Nitrogen 53 mg/dL (7-17); Calcium 9.5 mg/dL (8.4-10.2); Carbon Dioxide 17 mmol/L (22-32); Chloride 106 mmol/L (98-107); Estimated Glomerular Filt Rate 11.5 mL/min (>60); Glucose 113 mg/dL (80-110); HEMOLYSIS < 15 (0-50); Potassium 4.4 mmol/L (3.4-5.1); Sodium 137 mmol/L (137-145)
[2018-03-31 02:39] LABS: Prothrombin Time 74.1 SECONDS (10.1-12.7)
[2018-03-31 02:45] LABS: INR 6.2 (0.9-1.3)
[2018-03-31] MEDS: CEFTRIAXONE 1 GM/50 ML FROZ.PIGGY IV (03:36)
[2018-03-31] MEDS: SODIUM CHLORIDE 0.9% 1,000 ML 1000 ML IV (03:36)
[2018-03-31] MEDS: HYDROMORPHONE 1 MG INJ IV ×2 (03:59→06:50)
[2018-03-31 05:33] VITALS: BP 128/56; PULSE 85; RESP 18; O2SAT 94
--- NOTE | 2018-03-31 06:23 | PC.NURSE ---
Report called to Gabby CHRISTENSEN RN.
[2018-03-31 07:00] VITALS: BP 132/80; PULSE 80; RESP 16; O2SAT 96
== END 2018-03-31 07:09 | disposition short-term general hospital (02) ==
PROVIDERS: Emergency Provider Emergency Medicine; PCP Family Medicine
DX: N17.9 Acute kidney failure, unspecified (principal); N39.0 Urinary tract infection, site not specified; E86.0 Dehydration; T83.192A Other mechanical complication of indwelling ureteral stent, initial encounter
CPT/HCPCS: 36591; 76770; 80048; 85025; 85610; 96361; 96365; 96375; 96376; 99284; J1170

== ENCOUNTER → 2018-05-06 10:58 | Outpatient (CLI) | payer MEDICARE, SELFPAY ==
[2018-05-06 11:51] LABS: Add Manual Diff / Slide Review NO; Basophils Absolute Auto 100 /uL (0-100); Basophils Percent Auto 1.3 % (0-2); Eosinophils Absolute Auto 200 /uL (0-450); Eosinophils Percent Auto 2.5 % (2-4); Hematocrit 33.9 % (36-46); Lymphocytes Absolute Auto 900 /uL (1100-4500); Mean Corpuscular HGB Conc 32.5 % (30-36); Mean Corpuscular Hemoglobin 27.1 PG (26-34); Mean Corpuscular Volume 83.5 fL (80-100); Monocytes Absolute Auto 600 /uL (0-900); Monocytes Percent Auto 9.4 % (3-14); Neutrophils Absolute Auto 4900 /uL (1500-7000); Neutrophils Percent Auto 72.8 % (50-75); Platelet Count 261 X10^3/uL (150-400); Red Blood Cell Count 4.06 X10^6/uL (4.0-5.2); Red Cell Distribution Width 16.7 % (11.6-14.8); White Blood Cell Count 6.7 X10^3/uL (4.5-11.0)
[2018-05-06 11:57] LABS: Alanine Aminotransferase 17 IU/L (9-52); Albumin Globulin Ratio 1.1 (1.0-2.8); Alkaline Phosphatase 108 U/L (38-126); Aspartate Aminotransferase 16 IU/L (14-36); BUN Creatinine Ratio 15.3 (6-22); Bilirubin Total 0.3 mg/dL (0.2-1.3); Blood Urea Nitrogen 23 mg/dL (7-17); Calcium 9.8 mg/dL (8.4-10.2); Carbon Dioxide 23 mmol/L (22-32); Chloride 108 mmol/L (98-107); Estimated Glomerular Filt Rate 33.8 mL/min (>60); Globulin 3.8 g/dL (1.7-4.1); Glucose 111 mg/dL (80-110); HEMOLYSIS < 15 (0-50); Potassium 4.4 mmol/L (3.4-5.1); Sodium 140 mmol/L (137-145); Total Protein 7.8 g/dL (6.3-8.2)
[2018-05-06 12:27] LABS: Carcinoembryonic Antigen 1.6 ng/mL (0.1-3.0)
== END ==
PROVIDERS: PCP Family Medicine; Visit Provider Nurse Practitioner Gerontology
DX: C20 Malignant neoplasm of rectum (principal)
CPT/HCPCS: 80053; 82378; 85025

== ENCOUNTER → 2018-05-25 11:02 | Outpatient (CLI) | payer MEDICARE, SELFPAY ==
--- NOTE | 2018-05-25 | DI.RAD.S_ITS ---
PROCEDURE: XR CHEST 2V INDICATIONS: DYSPNEA TECHNIQUE: 2 views of the chest were acquired. COMPARISON: [facility], CR, XR CHEST 1V, 12/05/2017, 21:06. FINDINGS: Surgical changes and devices: None. Lungs and pleura: Lungs are clear. No pleural effusions or pneumothorax. Mediastinum: Mediastinal contours are normal. Heart size is normal. Bones and chest wall: No suspicious bony abnormalities. Soft tissues appear unremarkable. IMPRESSION: No acute cardiopulmonary disease. Dictated by: Dany Roque M.D. on 05/25/2018 at 12:20 Approved by: Dany Roque M.D. on 05/25/2018 at 12:21
== END ==
PROVIDERS: PCP Family Medicine; Visit Provider Family Medicine
DX: R06.09 Other forms of dyspnea (principal)
CPT/HCPCS: 71046

== ENCOUNTER → 2018-06-01 10:06 | Outpatient (CLI) | payer MEDICARE, SELFPAY | PROVIDERS: PCP Family Medicine; Visit Provider Family Medicine | DX: Z43.3 Encounter for attention to colostomy (principal) | CPT/HCPCS: 97602 ==

== ENCOUNTER → 2018-06-08 16:40 | Outpatient (CLI) | payer MEDICARE, SELFPAY ==
[2018-06-08 19:21] LABS: Add Manual Diff / Slide Review NO; Alanine Aminotransferase 20 IU/L (9-52); Albumin 3.9 g/dL (3.5-5.0); Albumin Globulin Ratio 1.1 (1.0-2.8); Alkaline Phosphatase 107 U/L (38-126); Aspartate Aminotransferase 14 IU/L (14-36); BUN Creatinine Ratio 13.9 (6-22); Basophils Absolute Auto 100 /uL (0-100); Basophils Percent Auto 0.8 % (0-2); Bilirubin Total 0.3 mg/dL (0.2-1.3); Blood Urea Nitrogen 25 mg/dL (7-17); Calcium 9.6 mg/dL (8.4-10.2); Carbon Dioxide 18 mmol/L (22-32); Chloride 109 mmol/L (98-107); Eosinophils Absolute Auto 300 /uL (0-450); Eosinophils Percent Auto 3.3 % (2-4); Estimated Glomerular Filt Rate 27.4 mL/min (>60); Globulin 3.6 g/dL (1.7-4.1); Glucose 99 mg/dL (80-110); HEMOLYSIS < 15 (0-50); Hemoglobin 11.2 g/dL (12.0-16.0); Lymphocytes Absolute Auto 1100 /uL (1100-4500); Lymphocytes Percent Auto 12.5 % (25-40); Mean Corpuscular HGB Conc 32.1 % (30-36); Mean Corpuscular Hemoglobin 26.9 PG (26-34); Monocytes Absolute Auto 600 /uL (0-900); Neutrophils Absolute Auto 6400 /uL (1500-7000); Neutrophils Percent Auto 76.4 % (50-75); Platelet Count 309 X10^3/uL (150-400); Potassium 4.1 mmol/L (3.4-5.1); Red Blood Cell Count 4.17 X10^6/uL (4.0-5.2); Red Cell Distribution Width 16.8 % (11.6-14.8); Sodium 141 mmol/L (137-145); Total Protein 7.5 g/dL (6.3-8.2); White Blood Cell Count 8.4 X10^3/uL (4.5-11.0)
[2018-06-08 19:52] LABS: Carcinoembryonic Antigen 1.7 ng/mL (0.1-3.0)
== END ==
PROVIDERS: PCP Family Medicine; Visit Provider Nurse Practitioner Family
DX: M79.676 Pain in unspecified toe(s) (principal); C20 Malignant neoplasm of rectum
CPT/HCPCS: 36415; 80053; 82378; 85025

== ENCOUNTER → 2018-06-11 11:43 | Outpatient (CLI) | payer MEDICARE, SELFPAY ==
[2018-06-11 12:02] LABS: Appearance Urine UA CLOUDY; Bilirubin Urine UA NEGATIVE (NEGATIVE); Color Urine UA RED; Glucose Urine UA NEGATIVE (Negative); Ketones Urine UA NEGATIVE (NEGATIVE); Leukocyte Esterase Urine UA 3+ (NEGATIVE); Nitrite Urine UA NEGATIVE (Negative); Occult Blood Urine UA 3+ (Negative); Protein Urine UA 3+ (Negative); Urobilinogen Urine UA 0.2 E.U./dL (0.2); pH Urine UA 8.5 (4.5-8.0)
[2018-06-11 12:22] LABS: Amorphous Sediment Urine 2+; RBC Urine 30-100/HPF (0-5/HPF); Squamous Epithelial Cell Urine 0-1 /HPF; Triple Phosphate Crystal Urine Occasional; WBC Urine 1-5/HPF (0-5/HPF)
[2018-06-11 12:23] LABS: Bacteria Urine Few (2-10); Culture Indicated Urine Specimen Cultured
== END ==
PROVIDERS: PCP Family Medicine; Visit Provider Urology
DX: R31.9 Hematuria, unspecified (principal); R32 Unspecified urinary incontinence
CPT/HCPCS: 81001; 87086

== ENCOUNTER → 2018-06-15 12:01 | Outpatient (REF) | payer MEDICARE, SELFPAY ==
[2018-06-15 12:35] LABS: INR 4.7 (0.9-1.3)
== END ==
LOC: LAB 12:01
PROVIDERS: PCP Family Medicine; Visit Provider Family Medicine
DX: Z79.01 Long term (current) use of anticoagulants (principal)
CPT/HCPCS: 85610

== ENCOUNTER → 2018-06-22 07:58 | Outpatient (CLI) | payer MEDICARE, SELFPAY ==
[2018-06-22 09:24] LABS: Add Manual Diff / Slide Review NO; Basophils Absolute Auto 100 /uL (0-100); Basophils Percent Auto 0.8 % (0-2); Eosinophils Absolute Auto 300 /uL (0-450); Eosinophils Percent Auto 4.3 % (2-4); Hematocrit 29.4 % (36-46); Hemoglobin 9.6 g/dL (12.0-16.0); Lymphocytes Absolute Auto 900 /uL (1100-4500); Lymphocytes Percent Auto 14.5 % (25-40); Mean Corpuscular HGB Conc 32.7 % (30-36); Mean Corpuscular Hemoglobin 26.5 PG (26-34); Mean Corpuscular Volume 80.8 fL (80-100); Monocytes Absolute Auto 700 /uL (0-900); Monocytes Percent Auto 11.5 % (3-14); Neutrophils Absolute Auto 4200 /uL (1500-7000); Neutrophils Percent Auto 68.9 % (50-75); Platelet Count 318 X10^3/uL (150-400); Red Blood Cell Count 3.64 X10^6/uL (4.0-5.2); Red Cell Distribution Width 16.3 % (11.6-14.8); White Blood Cell Count 6.1 X10^3/uL (4.5-11.0)
[2018-06-22 14:25] LABS: Alanine Aminotransferase 15 IU/L (9-52); Albumin 3.6 g/dL (3.5-5.0); Albumin Globulin Ratio 0.9 (1.0-2.8); Alkaline Phosphatase 91 U/L (38-126); Aspartate Aminotransferase 12 IU/L (14-36); BUN Creatinine Ratio 12.1 (6-22); Bilirubin Total 0.5 mg/dL (0.2-1.3); Blood Urea Nitrogen 35 mg/dL (7-17); Calcium 9.4 mg/dL (8.4-10.2); Carbon Dioxide 21 mmol/L (22-32); Chloride 108 mmol/L (98-107); Estimated Glomerular Filt Rate 15.8 mL/min (>60); Globulin 4.2 g/dL (1.7-4.1); Glucose 97 mg/dL (80-110); HEMOLYSIS < 15 (0-50); Potassium 3.4 mmol/L (3.4-5.1); Sodium 140 mmol/L (137-145); Total Protein 7.8 g/dL (6.3-8.2)
== END ==
PROVIDERS: PCP Family Medicine; Visit Provider Family Medicine
DX: R11.2 Nausea with vomiting, unspecified (principal); R05 Cough
CPT/HCPCS: 36415; 80053; 85025

== ENCOUNTER 2018-06-22 16:04 | Emergency (ER) | payer MEDICARE, SELFPAY ==
--- NOTE | 2018-06-22 16:11 | DI.CT.S_ITS ---
PROCEDURE: CT KIDNEY URETER BLADDER (KUB) INDICATIONS: worsening renal function, patient has renal stent TECHNIQUE: Noncontrast 5 mm thick sections acquired from the diaphragms to the symphysis. 5 mm thick coronal and sagittal reformats were then performed. For radiation dose reduction, the following was used: automated exposure control, adjustment of mA and/or kV according to patient size. COMPARISON: [facility], CT, PE STUDY (CTA CHEST), 04/02/2017, 17:22. [facility], CT, KIDNEY/ URETER/BLADDER, 05/01/2017, 9:47. [facility], CT, ABDOMEN/PELVIS WITHOUT CONTRAS, 05/11/2017, 9:01. [facility], CT, CT KIDNEY URETER BLADDER (KUB), 03/29/2018, 11:01. FINDINGS: Image quality: Excellent. Lung bases: There is partial visualization of a right middle subpleural nodule, as on series 3 image 1, which measures 7 mm. The lung bases otherwise appear clear. Heart size is within normal limits. Urinary system: This patient is status post right nephrectomy. No abnormal soft tissue can be seen within the right nephrectomy bed. There is a left sided double-J stent seen, with the proximal loop of the stent seen within the left proximal ureter. There is gross dilatation of the left renal pelvis, with prominent left-sided hydronephrosis. Nonobstructing kidney stones are seen in the left, which measure up to 8 mm. Moderate circumferential bladder wall thickening is seen. Other solid organs: Liver is normal in size. Simple appearing liver cysts are seen. Gallbladder wall is not thickened. Pancreas is normal in contours and is largely fatty replaced. Spleen is normal in size. No adrenal nodules. Peritoneum and bowel: Unenhanced bowel loops demonstrate normal wall thickness and caliber. No free fluid or air. There is a left lower quadrant ostomy. Nodes and vessels: No retroperitoneal or mesenteric adenopathy by size criteria. Aorta and inferior vena cava are normal in caliber. Atherosclerotic calcification is noted. Abdominal wall: There is a prominent hernia seen associated with the left lower quadrant ostomy. Additional hernias are seen involving the anterior abdominal wall, with nondilated small bowel seen within them. Pelvis: No free pelvic fluid. No inguinal hernias or adenopathy. Presacral thickening is seen. Please correlate with known patient history. Bones: No suspicious bony lesions. No vertebral body compression fractures. Age-appropriate bony degenerative changes are seen. Mild levoconvex scoliotic curvature is noted. IMPRESSION: There is prominent dilatation of the left renal pelvis with prominent left-sided hydronephrosis. A left renal stent is seen, with the proximal end within the proximal ureter and not within the renal pelvis. Status post right nephrectomy. Left lower quadrant ostomy. Several anterior abdominal wall hernias are seen, including along the ostomy site. There is moderate circumferential bladder wall thickening. Nonobstructing left-sided kidney stones. Presacral thickening is seen. Please correlate with patient history. 7 mm right middle lobe subpleural pulmonary nodule seen. Differential diagnosis includes metastatic disease. This nodule appears slightly more prominent than on the 04/02/17 CT examination. Incidental note is made of: Simple appearing liver cysts Dictated by: Fareed Terrazas M.D. on 06/22/2018 at 15:39 Approved by: Fareed Terrazas M.D. on 06/22/2018 at 15:48
[2018-06-22 16:15] VITALS: PULSE 87; RESP 16; O2SAT 98; BMI 34.9
[2018-06-22 16:39] LABS: Hematocrit 29.2 % (36-46); Hemoglobin 9.6 g/dL (12.0-16.0)
[2018-06-22] MEDS: SODIUM CHLORIDE 0.9% 1,000 ML 1000 ML IV (16:46)
[2018-06-22 16:47] VITALS: BP 139/67; PULSE 89; RESP 17; TEMP 37; O2SAT 94
[2018-06-22 16:47] LABS: Prothrombin Time 23.7 SECONDS (10.1-12.7)
--- NOTE | 2018-06-22 16:49 | PC.NURSE ---
Patient from Dr. Grover's office with left renal stent and increased creatinine. Was having hematuria but held her coumadin for five days and started up again on Thursday, no blood in urine since then. Also reports history of anemia. No issues with urination, has been urinating frequently she reports.
[2018-06-22 17:00] VITALS: BP 155/66; PULSE 79
--- NOTE | 2018-06-22 17:25 | ED.FEMALEGU ---
HPI - Female Genitourinary General Chief complaint: Urogenital-Female Stated complaint: POSSIBLE KIDNEY OBSTRUCTION Time Seen by Provider: 06/22/18 16:33 Source: patient and family (son) Limitations: no limitations History of Present Illness HPI Narrative: This is a 78-year-old comes to the emergency department with complaint of pelvic pressure. Patient saw her primary care today and was noted that her renal function had recently worsened. Patient has a renal stent in place and they were concerned there may be occlusion. Her primary care's spoke with Dr. Rowland who is on for her urologist Dr. Lewis patient's hemoglobin is at 9.6 which is decreased from June 08 when it was 11.2 patient has had chills intermittently but no fevers. Not she has had a mild cough but nonproductive and she states not really regular. Patient denies any chest pain or shortness of breath. She has urinary frequency as well as incontinence. She has had some constipation over the last several days. Patient was having blood in her urine and her INR was elevated today it has decreased 2 she is not noting any visual blood in her urine. Related Data Home Medications Medication Instructions Recorded Confirmed latanoprost 1 drp EYE-BOTH BEDTIME 02/09/18 06/22/18 lorazepam 0.5 mg PO PRN PRN 02/09/18 06/22/18 amlodipine [Norvasc] 5 mg PO QPM 03/29/18 06/22/18 hydrocodone-acetaminophen 1 tab PO PRN PRN 03/29/18 06/22/18 nystatin 1 applic TOPICAL DIRECTED 03/29/18 06/22/18 warfarin See Rx Instructions .ROUTE .COMPLEX 03/29/18 06/22/18 oxybutynin chloride 5 mg PO BID 06/22/18 06/22/18 Allergies Allergy/AdvReac Type Severity Reaction Status Date / Time cashew nut Allergy Severe Anaphylaxis Verified 06/22/18 16:15 ciprofloxacin [CIPROFLOXACIN] Allergy Intermediate HIVES UP Verified 06/22/18 16:15 ARM RIGHT AFTER IV DOSE STARTED nitrofurantoin Allergy Intermediate rash, Verified 06/22/18 16:15 [From MACRODANTIN] itching Review of Systems Review of Systems ROS Unobtainable: All systems reviewed & are unremarkable except as noted in HPI and below Constitutional Reports chills, Denies fever(s), Denies lethargy and Denies weakness Cardiovascular Denies chest pain, Denies lightheadedness, Denies palpitations, Denies dyspnea, Denies dyspnea on exertion and Denies orthopnea Respiratory Denies chest congestion, Reports cough, Denies hemoptysis, Denies excessive phlegm production, Denies dyspnea, Denies dyspnea on exertion and Denies wheezing Gastrointestinal Gastrointestinal: Denies abdominal pain, Denies change in bowel habits, Denies diarrhea, Denies nausea and Denies vomiting Neurologic Denies weakness Endocrine Denies palpitations Allergic/Immunologic Denies wheezing [facility] Medical History 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) Easy bruisability (Acute) Incontinence (Acute) Leg swelling (Acute) Neuropathy (Acute) Port-A-Cath in place (Acute) Rectal carcinoma (Acute) Retained urethral stent (Acute) S/p nephrectomy (Acute) Family History Mother Hypertension Cancer Son Hypertension Grandfather Heart disease Social History household members: family lives independently: Yes Smoking Status: Current every day smoker alcohol intake: current substance use type: does not use Social History household members: family lives independently: Yes Smoking Status: Current every day smoker alcohol intake: current substance use type: does not use Exam Narrative Exam Narrative: GENERAL: Alert and oriented x three, Obese, well-appearing elderly female in mild distress. HEENT: Head normocephalic, atraumatic, EOMI, pupils reactive, face symmetric, moist mucous membranes NECK: Supple, full range of motion CARDIOVASCULAR: Regular rate and rhythm without murmurs, rubs or gallops. RESPIRATORY: Breath sounds equal bilaterally, no wheezes rales or rhonchi. ABDOMEN: Soft, nontender. Normoactive bowel sounds all 4 quadrants. No guarding or rebound, rigidity, no mass : No CVA tenderness EXTREMITIES: Normal range of motion, no clubbing. Neurovascularly intact NEUROLOGICAL: Cranial nerves II through XII grossly intact. Moving all extremities SKIN: Warm, dry, no petechiae, no rashes or lesions. Initial Vital Signs Initial Vital Signs: Vital Signs Pulse Rate 87 06/22/18 16:15 Respiratory Rate 16 06/22/18 16:15 Pulse Oximetry 98 06/22/18 16:15 Course Orders Ordered: ED Orders 06/22/18 16:11 CT kidney ureter bladder (KUB) Stat 06/22/18 16:30 Hemoglobin and Hematocrit Stat Prothrombin Time INR Stat 06/22/18 19:00 Urinalysis and Microscopic Stat Discontinued Medications Sodium Chloride (Normal Saline 0.9%) 1,000 mls @ 1,000 mls/hr IV BOLUS ONE Stop: 06/22/18 17:11 Last Infusion: 06/22/18 17:45 Dose: 1,000 mls/hr Admin: 06/22/18 16:46 Dose: 1,000 mls/hr Morphine Sulfate (Morphine) 4 mg IV NOW ONE Stop: 06/22/18 18:39 Last Admin: 06/22/18 19:05 Dose: 4 mg Vital Signs - 8 hr 06/22/18 16:15 06/22/18 16:47 06/22/18 17:00 Temperature 98.6 F Pulse Rate 87 89 79 Respiratory Rate 16 17 Blood Pressure [Right Arm] 139/67 155/66 H Pulse Oximetry 98 94 06/22/18 18:33 Temperature Pulse Rate 88 Respiratory Rate 17 Blood Pressure [Right Arm] 156/74 H Pulse Oximetry MDM - Female Genitourinary Lab Data Attestation: I reviewed the patient's lab results. Result diagrams: 06/22/18 16:30 Lab Results 06/22/18 06/22/18 06/22/18 Range/Units 16:30 16:30 19:00 Hgb 9.6 L (12.0-16.0) g/dL Hct 29.2 L (36-46) % PT 23.7 H D (10.1-12.7) SECONDS INR 2.0 H (0.9-1.3) Urine Color Yellow Urine Appearance Cloudy Urine pH 8.0 (4.5-8.0) Ur Specific Jackson 1.010 (1.000-1.035) Urine Protein 2+ H (Negative) Urine Glucose (UA) Trace H (Negative) g/dL Urine Ketones Negative (NEGATIVE) Urine Occult Blood 3+ H (Negative) Urine Nitrate Positive H (Negative) Urine Bilirubin Negative (NEGATIVE) Urine Urobilinogen 1.0 (0.2) E.U./dL Ur Leukocyte Esterase 3+ H (NEGATIVE) Urine RBC 30-100/hpf H (0-5/HPF) Urine WBC 30-100/hpf H (0-5/HPF) Ur Squamous Epith Cells 1-5 /hpf Ur Transition Epith Cell 1-5/hpf (0-5/HPF) Urine Bacteria Many (>30) H (None) Urine Mucus 1+ H (Negative) Ur Culture Indicated? Specimen cultured Imaging Data CT scan - abdomen: Radiologist's impression: Sherlyn Ward 78 [address] 1940 [place] [address] CT Scan Report Signed Patient: Sherlyn Ward JMR#: [id number] : [id number]:[id number] Age/Sex: 78 / FDate of Service: 06/22/18 Loc: ED Accession Number: [id number] Procedure: CT kidney ureter bladder (KUB) Ordering Provider: Gayle Hoff D.O. PROCEDURE: CT KIDNEY URETER BLADDER (KUB) INDICATIONS: worsening renal function, patient has renal stent TECHNIQUE: Noncontrast 5 mm thick sections acquired from the diaphragms to the symphysis. 5 mm thick coronal and sagittal reformats were then performed. For radiation dose reduction, the following was used: automated exposure control, adjustment of mA and/or kV according to patient size. COMPARISON: [facility], CT, PE STUDY (CTA CHEST), 04/02/2017, 17:22. [facility], CT, KIDNEY/ URETER/BLADDER, 05/01/2017, 9:47. [facility], CT, ABDOMEN/PELVIS WITHOUT CONTRAS, 05/11/2017, 9:01. [facility], CT, CT KIDNEY URETER BLADDER (KUB), 03/29/2018, 11:01. FINDINGS: Image quality: Excellent. Lung bases: There is partial visualization of a right middle subpleural nodule, as on series 3 image 1, which measures 7 mm. The lung bases otherwise appear clear. Heart size is within normal limits. Urinary system: This patient is status post right nephrectomy. No abnormal soft tissue can be seen within the right nephrectomy bed. There is a left sided double-J stent seen, with the proximal loop of the stent seen within the left proximal ureter. There is gross dilatation of the left renal pelvis, with prominent left-sided hydronephrosis. Nonobstructing kidney stones are seen in the left, which measure up to 8 mm. Moderate circumferential bladder wall thickening is seen. Other solid organs: Liver is normal in size. Simple appearing liver cysts are seen. Gallbladder wall is not thickened. Pancreas is normal in contours and is largely fatty replaced. Spleen is normal in size. No adrenal nodules. Peritoneum and bowel: Unenhanced bowel loops demonstrate normal wall thickness and caliber. No free fluid or air. There is a left lower quadrant ostomy. Nodes and vessels: No retroperitoneal or mesenteric adenopathy by size criteria. Aorta and inferior vena cava are normal in caliber. Atherosclerotic calcification is noted. Abdominal wall: There is a prominent hernia seen associated with the left lower quadrant ostomy. Additional hernias are seen involving the anterior abdominal wall, with nondilated small bowel seen within them. Pelvis: No free pelvic fluid. No inguinal hernias or adenopathy. Presacral thickening is seen. Please correlate with known patient history. Bones: No suspicious bony lesions. No vertebral body compression fractures. Age-appropriate bony degenerative changes are seen. Mild levoconvex scoliotic curvature is noted. IMPRESSION: There is prominent dilatation of the left renal pelvis with prominent left-sided hydronephrosis. A left renal stent is seen, with the proximal end within the proximal ureter and not within the renal pelvis. Status post right nephrectomy. Left lower quadrant ostomy. Several anterior abdominal wall hernias are seen, including along the ostomy site. There is moderate circumferential bladder wall thickening. Nonobstructing left-sided kidney stones. Presacral thickening is seen. Please correlate with patient history. 7 mm right middle lobe subpleural pulmonary nodule seen. Differential diagnosis includes metastatic disease. This nodule appears slightly more prominent than on the 04/02/17 CT examination. Incidental note is made of: Simple appearing liver cysts Dictated by: Fareed Terrazas M.D. on 06/22/2018 at 15:39 Approved by: Fareed Terrazas M.D. on 06/22/2018 at 15:48 MDM Narrative Medical decision making narrative: I was initially contacted by Dr. Grover who had ordered labs this morning including a CBC and CMP which are included with paperwork. Patient's hemoglobin has dropped from 11-9 range. She was having gross hematuria which is likely the cause. Her INR was also elevated at 4.7 and is at 2 today. Patient is no longer having gross hematuria, urinalysis has been sent she was able to give a urine sample and is pending. Patient is not symptomatic with her anemia. She was able to ambulate to and from the bathroom. Patient's creatinine is elevated today at 2.9 with a GFR of 15. She was at 1.8 with a GFR of 27 on June 08 and a creatinine of 1.5 with a GFR 33 on 05/06/2018. Patient has been as high as 3.8 back in March of 2018. Patient has continued to make urine. She has been having some pressure in her low back consistent with hydro. CT KUB shows the patient has renal stent has migrated out of the renal pelvis. I spoke with Dr. Rowland from Urology which she has seen the group in the past. They accept for consultation and asked for transfer to [facility] under the hospitalist service. They asked patient to be NPO over midnight and they plan to do cystoscopy and stent replacement tomorrow. They were aware the patient's INR is 2 and did not request any reversal of her Coumadin. Patient and family are comfortable with the plan. She did develop some lower back pain during her stay and was given morphine 4 mg. Ua returned just as patient was being transported. Printed off and sent with patient for hospitalist so patient can be started on antibiotics. Discharge Plan Departure Patient Disposition: [facility] Clinical Impression: Hydronephrosis, Acute on chronic kidney failure, Displacement of indwelling ureteral stent, initial encounter, Anemia, UTI (urinary tract infection) Prescriptions: No Action latanoprost 0.005 % drops 1 drp EYE-BOTH BEDTIME RF: 0 lorazepam 0.5 MG tablet 0.5 mg PO PRN PRN (Reason: Anxiety) RF: 0 oxybutynin chloride 5 mg tablet 5 mg PO BID RF: 0 warfarin 5 mg tablet See Rx Instructions .ROUTE .COMPLEX RF: 0 hydrocodone-acetaminophen 5-325 mg tablet 1 tab PO PRN PRN (Reason: PAIN) RF: 0 nystatin 100,000 unit/gram cream 1 applic Topical DIRECTED RF: 0 amlodipine [Norvasc] 5 mg tablet 5 mg PO QPM RF: 0 Referrals: Eric Grover MD [Primary Care Provider] -
[2018-06-22 18:33] VITALS: BP 156/74; PULSE 88; RESP 17
--- NOTE | 2018-06-22 18:44 | PC.NURSE ---
Pt. given sandwich and green jello. will attempt to give urine sample after a bit of food.
--- NOTE | 2018-06-22 18:53 | PC.NURSE ---
amb to bathroom
[2018-06-22] MEDS: MORPHINE 4 MG/ML INJ IV (19:05)
[2018-06-22 19:18] LABS: Appearance Urine UA CLOUDY; Bilirubin Urine UA NEGATIVE (NEGATIVE); Color Urine UA YELLOW; Glucose Urine UA TRACE g/dL (Negative); Ketones Urine UA NEGATIVE (NEGATIVE); Leukocyte Esterase Urine UA 3+ (NEGATIVE); Nitrite Urine UA POSITIVE (Negative); Occult Blood Urine UA 3+ (Negative); Protein Urine UA 2+ (Negative)
[2018-06-22 19:27] LABS: Bacteria Urine Many (>30); RBC Urine 30-100/HPF (0-5/HPF); Squamous Epithelial Cell Urine 1-5 /HPF; Transitional Epi Cells Urine 1-5/HPF (0-5/HPF); WBC Urine 30-100/HPF (0-5/HPF)
[2018-06-22 19:28] LABS: Culture Indicated Urine Specimen Cultured; Mucus Urine 1+ (Negative)
[2018-06-22 19:44] VITALS: BP 158/70; PULSE 87; RESP 17; TEMP 36.4; O2SAT 99
== END 2018-06-22 19:46 | disposition short-term general hospital (02) ==
PROVIDERS: Emergency Provider Emergency Medicine; PCP Family Medicine
DX: R10.2 Pelvic and perineal pain (principal); N13.30 Unspecified hydronephrosis; N17.9 Acute kidney failure, unspecified; T83.122A Displacement of indwelling ureteral stent, initial encounter; D64.9 Anemia, unspecified; N39.0 Urinary tract infection, site not specified; R11.2 Nausea with vomiting, unspecified; R05 Cough
CPT/HCPCS: 36415; 36591; 74176; 80053; 81001; 85014; 85018; 85025; 85610; 87086; 96361; 96374; 99283; 99284; J2270

== ENCOUNTER → 2018-06-29 15:19 | Outpatient (REF) | payer MEDICARE, SELFPAY ==
[2018-06-29 15:34] LABS: INR 1.6 (0.9-1.3); Prothrombin Time 18.6 SECONDS (10.1-12.7)
== END ==
LOC: LAB 15:19
PROVIDERS: PCP Family Medicine; Visit Provider Family Medicine
DX: Z79.01 Long term (current) use of anticoagulants (principal)
CPT/HCPCS: 85610

== ENCOUNTER → 2018-07-01 08:09 | Outpatient (CLI) | payer MEDICARE, SELFPAY ==
--- NOTE | 2018-07-01 | DI.NM.S_ITS ---
PROCEDURE: NM WILLIAM PERF SPECT R&S PHARM Rest and pharmacological stress myocardial perfusion SPECT with gated imaging and ejection fraction RADIOPHARMACEUTICAL: 26.4 mCi Tc-99m tetrafosmin IV at rest and 24.6 mCi Tc-99m tetrafosmin IV at peak effect of pharmacological stress. [id number] was performed. INDICATIONS: DYSPNEA TECHNIQUE: Radiopharmaceutical was injected at peak stress test, and also at rest. SPECT images were obtained. SPECT myocardial perfusion images were displayed in short axis, horizontal long axis, and vertical long axis views. Gated images were reviewed using Hopper software. COMPARISON: None. CARDIAC STRESS: A pharmacologic stress test was performed under the supervision of an attending staff, using an infusion of Lexiscan . Hemodynamic data: There is normal blood pressure and heart rate response to pharmacologic stress. Symptoms: The patient denied anginal chest pain. Aminophylline: Not used. EKG: No diagnostic changes of ischemia; no ectopy. FINDINGS: Raw data: There is good myocardial uptake of radiotracer. No significant motion artifacts. Amaz-rh-[id number] ratio is 0.36 (normal is less than 0.38 for tetrafosmin tracer). Left ventricle function: Gated images demonstrate normal left ventricular wall thickening. No segmental wall motion abnormalities. No transient ischemic dilation; TID is 0.98 (normal less than 1.3). Left ventricle resting end diastolic volume is 95 mL. Left ventricle stress ejection fraction is >75%; normal range is above 45%. Myocardial perfusion: There is a mild, moderate size defect from the mid to apical anterior and anteroseptal wall which is worse on the stress image. However, on raw images there is significant breast shadow. Prone images could not be obtained. No other fixed or reversible perfusion defects. IMPRESSION: -Equivocal perfusion study. -The study quality is suboptimal due to significant breast attenuation artifact and that prone images could not be obtained. -A mild defect in anterior wall is similar to what is described on prior stress test from 04/14/2017. Prone images could not be obtained on this the study nor on the one from 04/14/2017. However, per report, patient had a similar defect on the stress study from June of 2014 at which time she did have prone images and the defect was normalized on prone imaging. Hence, this is likely an artifactual finding. -Small, hypercontractile left ventricle without regional wall motion abnormalities. Dictated by: Bennett Ruffin M.D. on 07/02/2018 at 17:50 Approved by: Bennett Ruffin M.D. on 07/02/2018 at 18:02
--- NOTE | 2018-07-01 09:38 | PM.TREADMILL ---
Cardiac Stress Test Report Referral & Results Date Patient Seen: 07/01/18 Requesting provider: Eric Grover Indication: Chest pain Procedure Note: After both written and verbal informed consent the patient had an IV started by the diagnostic imaging RN, and then was hooked up to the treadmill monitoring system. The Lexiscan material, and then the Cardiolite tracer, were administered sequentially. An additional 3 min was spent monitoring the patient while supine on the gurney. The patient had a normal response to all infused materials. Impression: Please see perfusion imaging report for details regarding possible ischemia Please note: Actual ECG tracings can be found in the PACS system.
== END ==
PROVIDERS: PCP Family Medicine; Visit Provider Family Medicine
DX: R07.9 Chest pain, unspecified (principal); R06.00 Dyspnea, unspecified
CPT/HCPCS: 78452; 93016; 93017; 93018; A9502; J2785

== ENCOUNTER → 2018-07-08 16:33 | Outpatient (REF) | payer MEDICARE, SELFPAY ==
[2018-07-08 17:09] LABS: INR 1.5 (0.9-1.3); Prothrombin Time 17.5 SECONDS (10.1-12.7)
== END ==
LOC: LAB 16:33
PROVIDERS: PCP Family Medicine; Visit Provider Family Medicine
DX: Z79.01 Long term (current) use of anticoagulants (principal)
CPT/HCPCS: 85610

== ENCOUNTER → 2018-08-06 08:58 | Outpatient (CLI) | payer MEDICARE, SELFPAY ==
--- NOTE | 2018-09-03 16:52 | PM.PFT.1 ---
Pulmonary Function Test Referral & Results Date Patient Seen: 08/06/18 Requesting provider: Eric Grover Indication: Shortness of breath Results: The spirometry demonstrates an FVC of 2.42 L which is 74% of predicted. The FEV1 was measured at 1.78 L which is 72% of predicted. The FEV1/FVC ratio was 70 for which is 98% of predicted. Following the administration of bronchodilator there was no appreciable change. Lung volumes show an SVC of 2.25 L which is 71% of predicted. The diffusing capacity was measured at 15.10 which is 50% of predicted. No hemoglobin value was provided, so no correction for potential anemia could be made, if appropriate. The maximum voluntary ventilation was reduced Interpretation: This study demonstrates mild obstructive lung disease without evidence of significant benefit following bronchodilator administration There is also mild restrictive lung disease present based on reduction in lung volumes There is more significant reduction in diffusing capacity suggesting more significant disease of the capillary alveolar level Clinical correlation suggested
== END ==
PROVIDERS: PCP Family Medicine; Visit Provider Family Medicine
DX: R06.02 Shortness of breath (principal)
CPT/HCPCS: 94060; 94726; 94729

== ENCOUNTER → 2018-08-13 11:16 | Outpatient (CLI) | payer MEDICARE, SELFPAY ==
[2018-08-13 12:10] LABS: INR 1.5 (0.9-1.3); Prothrombin Time 17.4 SECONDS (10.1-12.7)
[2018-08-13 13:55] LABS: Appearance Urine UA TURBID; Bilirubin Urine UA NEGATIVE (NEGATIVE); Color Urine UA YELLOW; Glucose Urine UA NEGATIVE (Negative); Ketones Urine UA TRACE (NEGATIVE); Leukocyte Esterase Urine UA 2+ (NEGATIVE); Nitrite Urine UA POSITIVE (Negative); Occult Blood Urine UA 3+ (Negative); Protein Urine UA 3+ (Negative); Specific Gravity Urine UA 1.015 (1.000-1.035); Urobilinogen Urine UA 0.2 E.U./dL (0.2); pH Urine UA 8.5 (4.5-8.0)
[2018-08-13 14:33] LABS: Bacteria Urine Many (>30); RBC Urine 30-100/HPF (0-5/HPF); Squamous Epithelial Cell Urine 1-5 /HPF (0-5/HPF); Triple Phosphate Crystal Urine Few; WBC Urine 10-30/HPF (0-5/HPF)
[2018-08-13 14:34] LABS: Mucus Urine 3+ (Negative)
[2018-08-13 14:35] LABS: Culture Indicated Urine Specimen Cultured
== END ==
PROVIDERS: PCP Family Medicine; Visit Provider Urology
DX: R32 Unspecified urinary incontinence (principal); Z79.01 Long term (current) use of anticoagulants
CPT/HCPCS: 81001; 85610; 87077; 87086; 87186

== ENCOUNTER → 2018-08-19 13:43 | Outpatient (ROUT) | payer MEDICARE, SELFPAY ==
[2018-08-19 13:59] LABS: INR 1.6 (0.9-1.3); Prothrombin Time 18.9 SECONDS (10.1-12.7)
== END ==
PROVIDERS: PCP Family Medicine; Visit Provider Family Medicine
DX: Z79.01 Long term (current) use of anticoagulants (principal)
CPT/HCPCS: 85610

== ENCOUNTER → 2018-09-02 14:13 | Outpatient (ROUT) | payer MEDICARE, SELFPAY ==
[2018-09-02 14:26] LABS: INR 4.1 (0.9-1.3); Prothrombin Time 48.5 SECONDS (10.1-12.7)
== END ==
PROVIDERS: PCP Family Medicine; Visit Provider Family Medicine
DX: Z79.01 Long term (current) use of anticoagulants (principal)
CPT/HCPCS: 85610

== ENCOUNTER → 2018-09-10 13:47 | Outpatient (ROUT) | payer MEDICARE, SELFPAY ==
[2018-09-10 13:59] LABS: INR 2.3 (0.9-1.3); Prothrombin Time 26.5 SECONDS (10.1-12.7)
== END ==
PROVIDERS: PCP Family Medicine; Visit Provider Family Medicine
DX: Z79.01 Long term (current) use of anticoagulants (principal)
CPT/HCPCS: 85610

== ENCOUNTER → 2018-09-21 13:28 | Outpatient (ROUT) | payer MEDICARE, SELFPAY ==
[2018-09-21 13:46] LABS: INR 3.7 (0.9-1.3); Prothrombin Time 43.4 SECONDS (10.1-12.7)
== END ==
PROVIDERS: PCP Family Medicine; Visit Provider Family Medicine
DX: Z79.01 Long term (current) use of anticoagulants (principal)
CPT/HCPCS: 85610

== ENCOUNTER → 2018-09-29 13:32 | Outpatient (ROUT) | payer MEDICARE, SELFPAY ==
[2018-09-29 13:54] LABS: INR 1.3 (0.9-1.3); Prothrombin Time 15.5 SECONDS (10.1-12.7)
== END ==
PROVIDERS: PCP Family Medicine; Visit Provider Family Medicine
DX: Z79.01 Long term (current) use of anticoagulants (principal)
CPT/HCPCS: 85610

== ENCOUNTER → 2018-10-07 13:14 | Outpatient (ROUT) | payer MEDICARE, SELFPAY ==
[2018-10-07 13:45] LABS: INR 1.7 (0.9-1.3); Prothrombin Time 19.3 SECONDS (10.1-12.7)
== END ==
PROVIDERS: PCP Family Medicine; Visit Provider Family Medicine
DX: Z79.01 Long term (current) use of anticoagulants (principal)
CPT/HCPCS: 85610

== ENCOUNTER → 2018-10-14 11:20 | Outpatient (ROUT) | payer MEDICARE, SELFPAY ==
[2018-10-14 11:45] LABS: INR 1.9 (0.9-1.3); Prothrombin Time 21.9 SECONDS (10.1-12.7)
== END ==
PROVIDERS: PCP Family Medicine; Visit Provider Family Medicine
DX: Z79.01 Long term (current) use of anticoagulants (principal)
CPT/HCPCS: 85610

== ENCOUNTER → 2018-10-28 16:28 | Outpatient (ROUT) | payer MEDICARE, SELFPAY ==
[2018-10-28 17:30] LABS: INR 1.3 (0.9-1.3); Prothrombin Time 14.6 SECONDS (10.1-12.7)
== END ==
PROVIDERS: PCP Family Medicine; Visit Provider Family Medicine
DX: Z86.718 Personal history of other venous thrombosis and embolism (principal)
CPT/HCPCS: 85610

== ENCOUNTER → 2018-11-04 15:46 | Outpatient (ROUT) | payer MEDICARE, SELFPAY ==
[2018-11-04 15:56] LABS: INR 2.1 (0.9-1.3); Prothrombin Time 24.3 SECONDS (10.1-12.7)
== END ==
PROVIDERS: PCP Family Medicine; Visit Provider Family Medicine
DX: Z79.01 Long term (current) use of anticoagulants (principal)
CPT/HCPCS: 85610

== ENCOUNTER → 2018-11-15 15:38 | Outpatient (ROUT) | payer MEDICARE, SELFPAY ==
[2018-11-15 15:50] LABS: INR 2.3 (0.9-1.3); Prothrombin Time 26.3 SECONDS (10.1-12.7)
== END ==
PROVIDERS: PCP Family Medicine; Visit Provider Family Medicine
DX: Z79.01 Long term (current) use of anticoagulants (principal)
CPT/HCPCS: 85610

== ENCOUNTER 2018-11-30 08:23 | Emergency (ER) | payer MEDICARE, SELFPAY ==
--- NOTE | 2018-11-30 08:29 | ED.GENADULT ---
HPI - General Adult General Chief complaint: Urogenital-Female Stated complaint: 'can't get warm,uncontrollable urination' Time Seen by Provider: 11/30/18 08:27 Source: patient and family (Son) Mode of arrival: wheelchair Limitations: no limitations History of Present Illness HPI narrative: Patient is a 78-year-old female with known kidney issues. She has had renal cancer in the past and now has only 1 functioning kidney. She has a stent in that kidney. She has frequent urinary tract infections. Last 2 times here to this emergency department patient had to be transferred secondary to urinary tract infection and acute renal failure secondary to an increased creatinine and decreased GFR. She has also had issues with her INR being elevated. 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 Patient states that she most recently was on Keflex. This was given by her primary doctor her for a urinary tract infection. She stop taking this approximately 1 week ago after completing a full course of the antibiotic. She is scheduled to see an infectious disease provider later this week. She does have a urologist. She is here for evaluation of dysuria. States that last evening she also was having chills and could not get warm. Related Data Home Medications Medication Instructions Recorded Confirmed latanoprost 1 drp EYE-BOTH BEDTIME 02/09/18 11/10/18 lorazepam 0.5 mg PO PRN PRN 02/09/18 11/10/18 amlodipine [Norvasc] 5 mg PO QPM 03/29/18 11/10/18 hydrocodone-acetaminophen 1 tab PO PRN PRN 03/29/18 11/10/18 warfarin See Rx Instructions .ROUTE .COMPLEX 03/29/18 11/10/18 oxybutynin chloride 5 mg PO BID 06/22/18 11/10/18 Previous Rx's Medication Instructions Recorded cephalexin [Keflex] 500 mg PO BID 5 Days #10 cap 11/30/18 Allergies Allergy/AdvReac Type Severity Reaction Status Date / Time cashew nut Allergy Severe Anaphylaxis Verified 06/22/18 16:15 ciprofloxacin [CIPROFLOXACIN] Allergy Intermediate HIVES UP Verified 06/22/18 16:15 ARM RIGHT AFTER IV DOSE STARTED nitrofurantoin Allergy Intermediate rash, Verified 06/22/18 16:15 [From MACRODANTIN] itching Review of Systems Constitutional Constitutional: Reports chills Cardiovascular Cardiovascular: Denies chest pain and Denies dyspnea Respiratory Respiratory: Denies dyspnea Gastrointestinal Gastrointestinal: Denies abdominal pain, Denies nausea and Denies vomiting Genitourinary Genitourinary: Reports urinary frequency, Reports dysuria, Reports urinary incontinence and Reports urinary urgency Musculoskeletal Musculoskeletal: Reports back pain (left flank) Integumentary/Breasts Skin/Breast: Denies lesions and Denies rash Neurologic Neurologic: Denies behavioral changes Psychiatric Psychiatric: Denies behavioral changes Hematologic/Lymphatic Hematologic/Lymphatic: Denies easy bleeding and Denies easy bruising [facility] Medical History 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) Easy bruisability (Acute) Incontinence (Acute) Leg swelling (Acute) Neuropathy (Acute) Port-A-Cath in place (Acute) Rectal carcinoma (Acute) Retained urethral stent (Acute) S/p nephrectomy (Acute) Social History household members: family lives independently: Yes Smoking Status: Current every day smoker Tobacco: How many years used: 60 alcohol intake: current substance use type: does not use Exam Initial Vital Signs Initial Vital Signs: Vital Signs Temperature 98.7 F 11/30/18 08:30 Pulse Rate 90 11/30/18 08:30 Respiratory Rate 16 11/30/18 08:30 Blood Pressure 135/67 11/30/18 08:30 Pulse Oximetry 100 11/30/18 08:30 Const General: cooperative, well developed, well groomed and No acute distress Orientation: alert and awake HENWA Head: normal to inspection and normocephalic Resp Effort & Inspection: normal respiratory effort Auscultation: clear to auscultation bilaterally Cardio Rate: regular rate Rhythm: regular rhythm GI Palpation: soft Other: Multiple large ventral hernias Back/Spine/Pelvis Back: No CVA tenderness Skin Lesions: no lesions Rashes: no rashes Neuro General: alert and awake Cognition: normal cognition Speech: speech normal Extrem General: normal to inspection and capillary refill normal Psych Appearance: grossly normal and well kempt Course Orders Ordered: ED Orders 11/30/18 08:45 Urinalysis and Microscopic Stat Urine Culture Stat 11/30/18 08:50 Complete Blood Count AUTO DIFF Stat Comprehensive Metabolic Panel Stat Lactate (Lactic Acid) Stat Lipase Stat Partial Thromboplastin Time Stat Procalcitonin Stat Prothrombin Time INR Stat Discontinued Medications Sodium Chloride (Normal Saline 0.9%) 1,000 mls @ 125 mls/hr IV CONT GEO Last Admin: 11/30/18 09:28 Dose: Not Given Documented by: GURVINDER Vital Signs Vital signs: Vital Signs - 8 hr 11/30/18 08:30 Temperature 98.7 F Pulse Rate 90 Respiratory Rate 16 Blood Pressure 135/67 Pulse Oximetry 100 Medical Decision Making Lab Data Lab results reviewed: Yes I reviewed the patient's lab results. Result diagrams: 11/30/18 08:50 11/30/18 08:50 Labs: Lab Results 11/30/18 11/30/18 11/30/18 Range/Units 08:45 08:50 08:50 WBC 8.3 (4.5-11.0) X10^3/uL RBC 4.23 (4.0-5.2) X10^6/uL Hgb 11.1 L (12.0-16.0) g/dL Hct 33.8 L (36-46) % MCV 79.9 L (80-100) fL MCH 26.3 (26-34) PG MCHC 32.9 (30-36) % RDW 16.9 H (11.6-14.8) % Plt Count 234 (150-400) X10^3/uL Neut % (Auto) 80.4 H (50-75) % Lymph % (Auto) 8.5 L (25-40) % [place] % (Auto) 9.5 (3-14) % Eos % (Auto) 0.9 L (2-4) % Baso % (Auto) 0.7 (0-2) % Neut # (Auto) 6600 (5371-7772) /uL Lymph # (Auto) 700 L (4159-1020) /uL Norman # (Auto) 800 (0-900) /uL Eos # (Auto) 100 (0-450) /uL Baso # (Auto) 100 (0-100) /uL PT 19.1 H (10.1-12.7) SECONDS INR 1.6 H (0.9-1.3) APTT 34 D (26.4-36.2) SECONDS Sodium (137-145) mmol/L Potassium (3.4-5.1) mmol/L Chloride (98-107) mmol/L Carbon Dioxide (22-32) mmol/L BUN (7-17) mg/dL Creatinine (0.52-1.04) mg/dL Estimated GFR (>60) mL/min BUN/Creatinine Ratio (6-22) Glucose (80-110) mg/dL Lactate (0.7-2.1) mmol/L Calcium (8.4-10.2) mg/dL Total Bilirubin (0.2-1.3) mg/dL AST (14-36) IU/L ALT (9-52) IU/L Alkaline Phosphatase (38-126) U/L Total Protein (6.3-8.2) g/dL Albumin (3.5-5.0) g/dL Globulin (1.7-4.1) g/dL Albumin/Globulin Ratio (1.0-2.8) Lipase (23-300) U/L Procalcitonin (<0.5) ng/mL Urine Color Yellow Urine Appearance Clear Urine pH 7.0 (4.5-8.0) Ur Specific [place] 1.015 (1.000-1.035) Urine Protein 2+ H (Negative) Urine Glucose (UA) Negative (Negative) g/dL Urine Ketones Negative (NEGATIVE) Urine Occult Blood 3+ H (Negative) Urine Nitrate Positive (Negative) Urine Bilirubin Negative (NEGATIVE) Urine Urobilinogen 0.2 (0.2) E.U./dL Ur Leukocyte Esterase 3+ H (NEGATIVE) Urine RBC 30-100/hpf H (0-5/HPF) Urine WBC >100/hpf H (0-5/HPF) Ur Squamous Epith Cells 1-5 /hpf (0-5/HPF) Urine Bacteria Many (>30) H (None) Ur Culture Indicated? Culture not indicate 11/30/18 11/30/18 11/30/18 Range/Units 08:50 08:50 08:50 WBC (4.5-11.0) X10^3/uL RBC (4.0-5.2) X10^6/uL Hgb (12.0-16.0) g/dL Hct (36-46) % MCV (80-100) fL MCH (26-34) PG MCHC (30-36) % RDW (11.6-14.8) % Plt Count (150-400) X10^3/uL Neut % (Auto) (50-75) % Lymph % (Auto) (25-40) % Norman % (Auto) (3-14) % Eos % (Auto) (2-4) % Baso % (Auto) (0-2) % Neut # (Auto) (1253-3769) /uL Lymph # (Auto) (6630-5634) /uL Norman # (Auto) (0-900) /uL Eos # (Auto) (0-450) /uL Baso # (Auto) (0-100) /uL PT (10.1-12.7) SECONDS INR (0.9-1.3) APTT (26.4-36.2) SECONDS Sodium 137 (137-145) mmol/L Potassium 4.2 (3.4-5.1) mmol/L Chloride 108 H (98-107) mmol/L Carbon Dioxide 19 L (22-32) mmol/L BUN 23 H (7-17) mg/dL Creatinine 1.60 H (0.52-1.04) mg/dL Estimated GFR 31.3 L (>60) mL/min BUN/Creatinine Ratio 14.4 (6-22) Glucose 107 (80-110) mg/dL Lactate 1.7 (0.7-2.1) mmol/L Calcium 9.4 (8.4-10.2) mg/dL Total Bilirubin 0.7 (0.2-1.3) mg/dL AST 13 L (14-36) IU/L ALT < 6 L (9-52) IU/L Alkaline Phosphatase 107 (38-126) U/L Total Protein 7.6 (6.3-8.2) g/dL Albumin 3.7 (3.5-5.0) g/dL Globulin 3.9 (1.7-4.1) g/dL Albumin/Globulin Ratio 0.9 L (1.0-2.8) Lipase 39 (23-300) U/L Procalcitonin 0.06 (<0.5) ng/mL Urine Color Urine Appearance Urine pH (4.5-8.0) Ur Specific [place] (1.000-1.035) Urine Protein (Negative) Urine Glucose (UA) (Negative) g/dL Urine Ketones (NEGATIVE) Urine Occult Blood (Negative) Urine Nitrate (Negative) Urine Bilirubin (NEGATIVE) Urine Urobilinogen (0.2) E.U./dL Ur Leukocyte Esterase (NEGATIVE) Urine RBC (0-5/HPF) Urine WBC (0-5/HPF) Ur Squamous Epith Cells (0-5/HPF) Urine Bacteria (None) Ur Culture Indicated? MDM Narrative Medical decision making narrative: Patient's lab reports do not support a systemic/septic type infection. Her physical exam is not consistent with pyelonephritis. Her H&H is higher today than what it has been in the past. Her creatinine today is at baseline. Her INR today is low. She will increase her Coumadin to 7.5 mg from 5 mg for the next couple days and then decreased back to 5. She was supposed to get her INR drawn this week anyway. She was instructed she did need to talk with her primary doctor about this. Review of the patient's past urinary cultures show multiple different types of bacteria. Ideally the patient would be on a floor quinolone however given her Coumadin use we would like to avoid this. She has been on Keflex in the past and this does seem to help her symptoms so we will start this medication again. She has a follow-up later this week with an infectious disease provider. A urine culture was obtained today. Patient was informed that this was still pending at we would call if we needed this change any antibiotics. She was given strong return precautions. She expressed understanding and agreement plan. Discharge Plan Departure Patient Disposition: Home Clinical Impression: UTI (urinary tract infection) Qualifiers: Urinary tract infection type: site unspecified Hematuria presence: without hematuria Qualified Code(s): N39.0 - Urinary tract infection, site not specified Instructions: DI for Urinary Tract Infection (UTI) Activity Restrictions/Additional Instructions: It is important that if your symptoms worsen or for whatever reason you cannot take the antibiotics you return to the emergency department for further evaluation. I would recommend that you increase your Coumadin to 7.5 mg on a daily basis for the next 3 days and then decreased back to 5 mg a day. Contact your primary provider for further instructions on this. Keep your scheduled medical appointments. Return to the emergency department for any new or worsening symptoms Prescriptions: New cephalexin [Keflex] 500 mg capsule 500 mg PO BID 5 Days Qty: 10 RF: 0 No Action latanoprost 0.005 % drops 1 drp EYE-BOTH BEDTIME RF: 0 lorazepam 0.5 MG tablet 0.5 mg PO PRN PRN (Reason: Anxiety) RF: 0 oxybutynin chloride 5 mg tablet 5 mg PO BID RF: 0 warfarin 5 mg tablet See Rx Instructions .ROUTE .COMPLEX RF: 0 hydrocodone-acetaminophen 5-325 mg tablet 1 tab PO PRN PRN (Reason: PAIN) RF: 0 amlodipine [Norvasc] 5 mg tablet 5 mg PO QPM RF: 0 Referrals: Eric Grover MD [Primary Care Provider] -
[2018-11-30 08:30] VITALS: BP 135/67; PULSE 90; RESP 16; TEMP 37.1; O2SAT 100
[2018-11-30 09:03] LABS: Add Manual Diff / Slide Review NO; Basophils Absolute Auto 100 /uL (0-100); Basophils Percent Auto 0.7 % (0-2); Eosinophils Absolute Auto 100 /uL (0-450); Eosinophils Percent Auto 0.9 % (2-4); Hematocrit 33.8 % (36-46); Hemoglobin 11.1 g/dL (12.0-16.0); Lymphocytes Absolute Auto 700 /uL (1100-4500); Lymphocytes Percent Auto 8.5 % (25-40); Mean Corpuscular HGB Conc 32.9 % (30-36); Mean Corpuscular Hemoglobin 26.3 PG (26-34); Mean Corpuscular Volume 79.9 fL (80-100); Monocytes Absolute Auto 800 /uL (0-900); Monocytes Percent Auto 9.5 % (3-14); Neutrophils Absolute Auto 6600 /uL (1500-7000); Neutrophils Percent Auto 80.4 % (50-75); Platelet Count 234 X10^3/uL (150-400); Red Blood Cell Count 4.23 X10^6/uL (4.0-5.2); Red Cell Distribution Width 16.9 % (11.6-14.8); White Blood Cell Count 8.3 X10^3/uL (4.5-11.0)
[2018-11-30 09:05] LABS: Appearance Urine UA CLEAR; Bilirubin Urine UA NEGATIVE (NEGATIVE); Color Urine UA YELLOW; Glucose Urine UA NEGATIVE (Negative); Ketones Urine UA NEGATIVE (NEGATIVE); Leukocyte Esterase Urine UA 3+ (NEGATIVE); Nitrite Urine UA POSITIVE (Negative); Occult Blood Urine UA 3+ (Negative); Protein Urine UA 2+ (Negative); Specific Gravity Urine UA 1.015 (1.000-1.035); Urobilinogen Urine UA 0.2 E.U./dL (0.2)
[2018-11-30 09:09] LABS: INR 1.6 (0.9-1.3); Prothrombin Time 19.1 SECONDS (10.1-12.7)
[2018-11-30 09:12] LABS: PTT Partial Thromboplastin Tim 34 SECONDS (26.4-36.2)
[2018-11-30 09:18] LABS: Albumin 3.7 g/dL (3.5-5.0); Albumin Globulin Ratio 0.9 (1.0-2.8); Alkaline Phosphatase 107 U/L (38-126); Aspartate Aminotransferase 13 IU/L (14-36); BUN Creatinine Ratio 14.4 (6-22); Bilirubin Total 0.7 mg/dL (0.2-1.3); Blood Urea Nitrogen 23 mg/dL (7-17); Calcium 9.4 mg/dL (8.4-10.2); Carbon Dioxide 19 mmol/L (22-32); Chloride 108 mmol/L (98-107); Estimated Glomerular Filt Rate 31.3 mL/min (>60); Globulin 3.9 g/dL (1.7-4.1); Glucose 107 mg/dL (80-110); HEMOLYSIS < 15 (0-50); Lipase 39 U/L (23-300); Potassium 4.2 mmol/L (3.4-5.1); Sodium 137 mmol/L (137-145); Total Protein 7.6 g/dL (6.3-8.2)
[2018-11-30 09:19] LABS: Lactate (Lactic Acid) 1.7 mmol/L (0.7-2.1)
[2018-11-30 09:25] LABS: Bacteria Urine Many (>30); RBC Urine 30-100/HPF (0-5/HPF); Squamous Epithelial Cell Urine 1-5 /HPF (0-5/HPF); WBC Urine >100/HPF (0-5/HPF)
[2018-11-30 09:28] LABS: Alanine Aminotransferase < 6 IU/L (9-52)
[2018-11-30 09:43] LABS: Procalcitonin 0.06 ng/mL (<0.5)
[2018-11-30 10:05] VITALS: BP 118/66; PULSE 75; RESP 16; O2SAT 98
== END 2018-11-30 10:15 | disposition home or self-care (01) ==
PROVIDERS: Emergency Provider Emergency Medicine; PCP Family Medicine
DX: N39.0 Urinary tract infection, site not specified (principal)
CPT/HCPCS: 36591; 80053; 81001; 83605; 83690; 84145; 85025; 85610; 85730; 87077; 87086; 87186; 99283

== ENCOUNTER → 2019-03-14 10:13 | Outpatient (ROUT) | payer MEDICARE, SELFPAY ==
[2019-03-14 10:26] LABS: INR 1.5 (0.9-1.3); Prothrombin Time 17.8 SECONDS (10.1-12.7)
== END ==
PROVIDERS: PCP Family Medicine; Visit Provider Family Medicine
DX: Z79.01 Long term (current) use of anticoagulants (principal)
CPT/HCPCS: 85610

== ENCOUNTER → 2019-04-14 09:24 | Outpatient (ROUT) | payer MEDICARE, SELFPAY ==
[2019-04-14 09:37] LABS: INR 2.2 (0.9-1.3); Prothrombin Time 25.6 SECONDS (10.1-12.7)
== END ==
PROVIDERS: PCP Family Medicine; Visit Provider Family Medicine
DX: Z79.01 Long term (current) use of anticoagulants (principal)
CPT/HCPCS: 85610

== ENCOUNTER → 2019-05-18 14:58 | Outpatient (ROUT) | payer MEDICARE, SELFPAY ==
[2019-05-18 16:04] LABS: INR 2.3 (0.9-1.3); Prothrombin Time 26.3 SECONDS (10.1-12.7)
== END ==
PROVIDERS: PCP Family Medicine; Visit Provider Family Medicine
DX: Z79.01 Long term (current) use of anticoagulants (principal)
CPT/HCPCS: 85610

== ENCOUNTER → 2019-06-16 08:56 | Outpatient (ROUT) | payer MEDICARE, SELFPAY ==
[2019-06-16 09:18] LABS: INR 2.1 (0.9-1.3); Prothrombin Time 23.7 SECONDS (10.1-12.7)
== END ==
PROVIDERS: PCP Family Medicine; Visit Provider Family Medicine
DX: Z79.01 Long term (current) use of anticoagulants (principal)
CPT/HCPCS: 85610

== ENCOUNTER → 2019-07-14 13:21 | Outpatient (CLI) | payer MEDICARE, SELFPAY ==
[2019-07-14 14:18] LABS: Appearance Urine UA CLOUDY; Bilirubin Urine UA NEGATIVE (NEGATIVE); Color Urine UA ORANGE; Glucose Urine UA NEGATIVE (Negative); Ketones Urine UA TRACE (NEGATIVE); Leukocyte Esterase Urine UA 2+ (NEGATIVE); Nitrite Urine UA POSITIVE (Negative); Occult Blood Urine UA 3+ (Negative); Protein Urine UA 3+ (Negative); Specific Gravity Urine UA 1.015 (1.000-1.035)
[2019-07-14 14:19] LABS: pH Urine UA 8.5 (4.5-8.0)
[2019-07-14 14:31] LABS: Amorphous Sediment Urine 1+; Bacteria Urine Moderate (10-30); RBC Urine >100/HPF (0-5/HPF); Squamous Epithelial Cell Urine 0-1 /HPF (0-5/HPF); WBC Urine 30-100/HPF (0-5/HPF)
[2019-07-14 14:32] LABS: Culture Indicated Urine Specimen Cultured
== END ==
PROVIDERS: PCP Family Medicine; Referring Provider Urology; Visit Provider Urology
DX: R39.9 Unspecified symptoms and signs involving the genitourinary system (principal)
CPT/HCPCS: 81001; 87077; 87086; 87186

== ENCOUNTER → 2019-07-19 13:11 | Outpatient (ROUT) | payer MEDICARE, SELFPAY ==
[2019-07-19 15:29] LABS: INR 2.1 (0.9-1.3); Prothrombin Time 24.6 SECONDS (10.1-12.7)
== END ==
PROVIDERS: PCP Family Medicine; Visit Provider Family Medicine
DX: Z79.01 Long term (current) use of anticoagulants (principal)
CPT/HCPCS: 85610

== ENCOUNTER → 2019-08-10 11:17 | Outpatient (CLI) | payer MEDICARE, SELFPAY ==
--- NOTE | 2019-08-10 | DI.US.S_ITS ---
PROCEDURE: US PERIPH VENOUS LOW EXTREM LT INDICATIONS: LT LEG SWELLING R/O DVT TECHNIQUE: Real-time imaging, as well as color and pulse Doppler interrogation, were performed of the lower extremity deep veins from the inguinal ligament to the popliteal fossa. COMPARISON: [facility], PVE UNILATERAL LEFT, 05/08/2016, 11:31. [facility], PVE UNILATERAL LEFT, 06/02/2016, 16:24. FINDINGS: Partially occlusive deep venous thrombosis can be seen within the distal femoral vein. There is also partially occlusive thrombosis within the popliteal vein. IMPRESSION: Deep venous thrombosis can be seen, which is partially occlusive and seen within the distal superficial vein and the popliteal vein. Dictated by: Fareed Terrazas M.D. on 08/10/2019 at 11:24 Approved by: Fareed Terrazas M.D. on 08/10/2019 at 11:25
== END ==
PROVIDERS: PCP Family Medicine; Referring Provider Family Medicine; Visit Provider Family Medicine
DX: I82.432 Acute embolism and thrombosis of left popliteal vein (principal); I82.412 Acute embolism and thrombosis of left femoral vein; M79.89 Other specified soft tissue disorders; I87.2 Venous insufficiency (chronic) (peripheral); M79.605 Pain in left leg; I26.99 Other pulmonary embolism without acute cor pulmonale; Z86.718 Personal history of other venous thrombosis and embolism
CPT/HCPCS: 85610; 93971

== ENCOUNTER → 2019-08-10 11:21 | Outpatient (ROUT) | payer MEDICARE, SELFPAY ==
[2019-08-10 11:43] LABS: Prothrombin Time 55.2 SECONDS (10.1-12.7)
[2019-08-10 11:52] LABS: INR 4.9 (0.9-1.3)
== END ==
PROVIDERS: PCP Family Medicine; Visit Provider Family Medicine
DX: I87.2 Venous insufficiency (chronic) (peripheral) (principal); I26.99 Other pulmonary embolism without acute cor pulmonale; M79.605 Pain in left leg; Z86.718 Personal history of other venous thrombosis and embolism
CPT/HCPCS: 85610

== ENCOUNTER → 2019-08-11 11:33 | Outpatient (ROUT) | payer MEDICARE, SELFPAY ==
[2019-08-11 12:10] LABS: INR 4.4 (0.9-1.3)
== END ==
PROVIDERS: PCP Family Medicine; Visit Provider Family Medicine
DX: Z79.01 Long term (current) use of anticoagulants (principal)
CPT/HCPCS: 85610

== ENCOUNTER → 2019-08-12 11:19 | Outpatient (ROUT) | payer MEDICARE, SELFPAY ==
[2019-08-12 12:01] LABS: INR 3.2 (0.9-1.3); Prothrombin Time 36.3 SECONDS (10.1-12.7)
== END ==
PROVIDERS: PCP Family Medicine; Visit Provider Family Medicine
DX: Z79.01 Long term (current) use of anticoagulants (principal)
CPT/HCPCS: 85610

== ENCOUNTER → 2019-08-15 11:53 | Outpatient (ROUT) | payer MEDICARE, SELFPAY ==
[2019-08-15 12:05] LABS: INR 2.3 (0.9-1.3); Prothrombin Time 26.1 SECONDS (10.1-12.7)
== END ==
PROVIDERS: PCP Family Medicine; Visit Provider Family Medicine
DX: Z79.01 Long term (current) use of anticoagulants (principal)
CPT/HCPCS: 85610

== ENCOUNTER → 2019-08-16 15:06 | Outpatient (CLI) | payer MEDICARE, SELFPAY ==
[2019-08-16 15:36] LABS: Hemoglobin 11.8 g/dL (12.0-16.0); Mean Corpuscular HGB Conc 32.8 % (30-36); Mean Corpuscular Hemoglobin 27.3 PG (26-34); Mean Corpuscular Volume 83.1 fL (80-100); Platelet Count 267 X10^3/uL (150-400); Red Blood Cell Count 4.34 X10^6/uL (4.0-5.2); White Blood Cell Count 5.7 X10^3/uL (4.5-11.0)
[2019-08-16 15:56] LABS: Erythrocyte Sedimentation Rate 33 MM/HR (0-20)
[2019-08-16 16:10] LABS: C-Reactive Protein Quant 1.6 mg/dL (<1.0)
== END ==
PROVIDERS: PCP Family Medicine; Referring Provider Family Medicine; Visit Provider Family Medicine
DX: D69.2 Other nonthrombocytopenic purpura (principal)
CPT/HCPCS: 36415; 85027; 85651; 86140

== ENCOUNTER → 2019-08-24 11:14 | Outpatient (ROUT) | payer MEDICARE, SELFPAY ==
[2019-08-24 11:23] LABS: Prothrombin Time 33.7 SECONDS (10.1-12.7)
== END ==
PROVIDERS: PCP Family Medicine; Visit Provider Family Medicine
DX: Z79.01 Long term (current) use of anticoagulants (principal)
CPT/HCPCS: 85610

== ENCOUNTER → 2019-09-13 14:30 | Outpatient (CLI) | payer MEDICARE, SELFPAY ==
[2019-09-13 14:55] LABS: Add Manual Diff / Slide Review NO; Basophils Absolute Auto 100 /uL (0-100); Basophils Percent Auto 1.1 % (0-2); Eosinophils Absolute Auto 200 /uL (0-450); Eosinophils Percent Auto 2.4 % (2-4); Hematocrit 37.4 % (36-46); Hemoglobin 12.3 g/dL (12.0-16.0); Lymphocytes Absolute Auto 1000 /uL (1100-4500); Lymphocytes Percent Auto 15.1 % (25-40); Mean Corpuscular Hemoglobin 27.2 PG (26-34); Mean Corpuscular Volume 82.2 fL (80-100); Monocytes Absolute Auto 500 /uL (0-900); Monocytes Percent Auto 7.7 % (3-14); Neutrophils Absolute Auto 5000 /uL (1500-7000); Neutrophils Percent Auto 73.7 % (50-75); Platelet Count 303 X10^3/uL (150-400); Red Blood Cell Count 4.54 X10^6/uL (4.0-5.2); Red Cell Distribution Width 16.5 % (11.6-14.8); White Blood Cell Count 6.7 X10^3/uL (4.5-11.0)
[2019-09-13 15:47] LABS: Alanine Aminotransferase 12 IU/L (<35); Albumin 3.8 g/dL (3.5-5.0); Albumin Globulin Ratio 1.1 (1.0-2.8); Alkaline Phosphatase 121 U/L (38-126); Aspartate Aminotransferase 17 IU/L (14-36); BUN Creatinine Ratio 14.2 (6-22); Bilirubin Total 0.3 mg/dL (0.2-1.3); Blood Urea Nitrogen 23 mg/dL (7-17); Calcium 9.8 mg/dL (8.4-10.2); Carbon Dioxide 21 mmol/L (22-32); Chloride 110 mmol/L (98-107); Estimated Glomerular Filt Rate 30.8 mL/min (>60); Globulin 3.4 g/dL (1.7-4.1); Glucose 104 mg/dL (80-110); HEMOLYSIS < 15 (0-50); Potassium 4.6 mmol/L (3.4-5.1); Sodium 138 mmol/L (137-145); Total Protein 7.2 g/dL (6.3-8.2)
[2019-09-15 04:08] LABS: Dilute Russell Viper Venom Mix 43.2 sec (0.0-47.0); Lupus Reflex Interpretation Comment: (.); PTT-LA 43.9 sec (0.0-51.9)
== END ==
PROVIDERS: PCP Family Medicine; Referring Provider Internal Medicine; Visit Provider Internal Medicine
DX: C20 Malignant neoplasm of rectum (principal)
CPT/HCPCS: 36415; 80053; 85025; 85598; 85613; 86146; 86147

== ENCOUNTER → 2019-09-16 09:51 | Outpatient (CLI) | payer MEDICARE, SELFPAY ==
--- NOTE | 2019-09-16 09:53 | DI.CT.S_ITS ---
PROCEDURE: CT CHEST ABD PEL WO CON INDICATIONS: DVT on coumadin in patietn with history of colorectal cancer TECHNIQUE: After the administration of oral contrast, 5 mm thick sections acquired from the lung apices to the symphysis pubis. 5 mm thick coronal and sagittal reformats acquired, with additional 7 mm coronal MIP reformats through the lungs. For radiation dose reduction, the following was used: automated exposure control, adjustment of mA and/or kV according to patient size. COMPARISON: , CT, PE STUDY (CTA CHEST), 04/02/2017, 17:22. , CT, KIDNEY/ URETER/BLADDER, 05/01/2017, 9:47. , CT, ABDOMEN/PELVIS WITHOUT CONTRAS, 05/11/2017, 9:01. , CT, CT KIDNEY URETER BLADDER (KUB), 03/29/2018, 11:01. , CT, CT KIDNEY URETER BLADDER (KUB), 06/22/2018, 16:13. FINDINGS: Image quality: Excellent. CHEST: Lungs and pleura: No acute pulmonary opacities. 6 mm pulmonary nodule in the right middle lobe is unchanged when compared with the CT dated 04/02/17. No pleural effusions or pneumothorax. Central and peripheral airways are patent are normal in caliber. Mediastinum: Heart size is normal. No pericardial effusion. No mediastinal adenopathy by CT size criteria. Thoracic aorta and central pulmonary arteries are normal in size. Scattered atheromatous calcifications are present within the aortic arch. Esophagus is normal in caliber. No hiatal hernia. Chest wall: No axillary or supraclavicular adenopathy by size criteria. Thyroid gland and a partially calcified nodules present within the right thyroid lobe. The thyroid gland is otherwise unremarkable. ABDOMEN: Solid organs: Liver is normal in size. Low density cyst is redemonstrated in the left hepatic lobe. Low density hepatic cysts are also present within hepatic segment IVB. Ga bladder is unremarkable. Pancreas is moderately atrophic. pleen is normal in size. No adrenal nodules. The right kidney is surgically absent. There is mild atrophy of the left kidney and moderate perinephric fat stranding. A 7 mm in nonobstructing calculus is present within the midpole the left kidney. A double-J ureteral stent is present within the left kidney or ureter. No hydronephrosis. A low density cyst is present in the lower pole of the left kidney. Peritoneum and bowel: Small and large bowel loops are normal in caliber and wall thickness. No free fluid or air. Nodes and vessels: No retroperitoneal or mesenteric adenopathy by size criteria. Aorta and inferior vena cava are normal in size. There are dense atheromatous calcifications throughout the aorta and iliac arteries bilaterally. Miscellaneous: A large spigelian hernia is present along the right flank which contains a nondilated loop of the hepatic flexure and mesenteric fat. There is a small periumbilical hernia which contains fat and a loop of nondilated small bowel. There is a large left lower quadrant parastomal hernia which contains mesenteric fat and multiple loops of nondilated small bowel. There are are bilateral fat-containing inguinal hernias. A nondilated loop of small bowel is present within the right inguinal hernia. PELVIS: Genitourinary: Bladder wall thickness is normal. Miscellaneous: No inguinal hernias or adenopathy. Bones: No suspicious bony lesions. No new vertebral body compression fractures. IMPRESSION: 1. No findings to suggest tumor recurrence or metastasis. 2. Multiple fat and bowel containing hernias as above. No findings to suggest bowel entrapment, strangulation, or ischemia. 3. Dense aortic atherosclerosis. Dictated by: Jeanne López M.D. on 09/16/2019 at 12:56 Approved by: Jeanne López M.D. on 09/16/2019 at 13:07
== END ==
PROVIDERS: PCP Family Medicine; Referring Provider Internal Medicine; Visit Provider Internal Medicine
DX: C20 Malignant neoplasm of rectum (principal); I82.409 Acute embolism and thrombosis of unspecified deep veins of unspecified lower extremity; K76.89 Other specified diseases of liver; K43.9 Ventral hernia without obstruction or gangrene; K42.9 Umbilical hernia without obstruction or gangrene; K43.5 Parastomal hernia without obstruction or gangrene; K40.20 Bilateral inguinal hernia, 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, not specified as recurrent; I70.0 Atherosclerosis of aorta; R91.1 Solitary pulmonary nodule; N28.1 Cyst of kidney, acquired; N20.0 Calculus of kidney; E04.2 Nontoxic multinodular goiter; Z79.01 Long term (current) use of anticoagulants; Z90.5 Acquired absence of kidney
CPT/HCPCS: 71250; 74176

== ENCOUNTER → 2019-09-30 10:44 | Outpatient (CLI) | payer MEDICARE, SELFPAY ==
[2019-09-30 11:57] LABS: INR 1.7 (0.9-1.3); Prothrombin Time 20.1 SECONDS (10.1-12.7)
== END ==
PROVIDERS: PCP Family Medicine; Referring Provider Internal Medicine; Visit Provider Internal Medicine
DX: C20 Malignant neoplasm of rectum (principal); Z79.01 Long term (current) use of anticoagulants
CPT/HCPCS: 36415; 85610

== ENCOUNTER 2019-10-02 07:55 | Emergency (ER) | payer MEDICARE, SELFPAY ==
[2019-10-02 08:04] VITALS: BP 147/64; PULSE 106; RESP 20; TEMP 37.4; O2SAT 94; BMI 50.1
--- NOTE | 2019-10-02 08:11 | DI.RAD.S_ITS ---
PROCEDURE: XR CHEST 1V INDICATIONS: suspected sepsis TECHNIQUE: One view of the chest was acquired. COMPARISON: 05/25/18. FINDINGS: Surgical changes and devices: None. Lungs and pleura: Lungs are clear. No pleural effusions or pneumothorax. Mediastinum: Mediastinal contours appear normal. Heart size within normal limits. Bones and chest wall: No suspicious bony lesions. Overlying soft tissues appear unremarkable. IMPRESSION: No evidence acute pulmonary process. Dictated by: Everardo Whitehead M.D. on 10/02/2019 at 8:27 Approved by: Everardo Whitehead M.D. on 10/02/2019 at 8:28
--- NOTE | 2019-10-02 08:22 | ED_ITS ---
HPI - Weakness General Chief complaint: Weakness Stated complaint: Confusion Time Seen by Provider: 10/02/19 08:12 Source: patient and EMS Mode of arrival: EMS Limitations: no limitations History of Present Illness HPI Narrative: CC: Weakness fatigue and confusion HPI: The patient is a 79-year-old female with a past history of colon cancer status post colon resection with a colostomy. She has a history of recurrent urinary tract infections and has been complaining of increased urgency and frequency. She has had bilateral frontal headache for the last 2 days. She normally does not have any headaches. She denies any fall or injury. The headache is 6 to 7/10 in intensity. The headache seems to be localized primarily behind her right eye. She has no history of migraines or ocular migraines. She has had no change in vision or loss of vision. There has been no fall no injury. She denies any fever chills but has had sweats yesterday none today. She has had mild shortness of breath minimal cough that has been productive of a clear sputum. She has had no chest pain or palpitations but has had some mild dizziness and light headedness. She complains of diffuse body aches. She has had no vomiting no significant abdominal pain but has been nauseous without melena or hematochezia in her stool. She denies a past history of sepsis states that she has 1 kidney and is unknown whether not she has ever had pyelonephritis. The patient states that she has had anemia before. She admits to a history of hypertension but denies a history of diabetes mellitus stroke congestive heart failure myocardial infarction COPD or asthma. The patient continues to smoke 1-2 cigarettes per day does not vapor chew tobacco drink alcohol or use any drugs. Related Data Home Medications Medication Instructions Recorded Confirmed latanoprost 1 drp EYE-BOTH BEDTIME 02/09/18 02/01/19 lorazepam 0.5 mg PO PRN PRN 02/09/18 02/01/19 amlodipine [Norvasc] 5 mg PO QPM 03/29/18 02/01/19 warfarin See Rx Instructions .ROUTE .COMPLEX 03/29/18 02/01/19 Previous Rx's Medication Instructions Recorded enoxaparin [Lovenox] 100 mg SUBCUT Q12H #60 ml 09/27/19 cefdinir 300 mg PO BID #20 cap 10/02/19 ondansetron HCl [Zofran] 4 mg PO Q6H PRN #12 tab 10/02/19 Allergies Allergy/AdvReac Type Severity Reaction Status Date / Time cashew nut Allergy Severe Anaphylaxis Verified 10/02/19 08:04 ciprofloxacin [CIPROFLOXACIN] Allergy Intermediate HIVES UP Verified 10/02/19 08:04 ARM RIGHT AFTER IV DOSE STARTED nitrofurantoin Allergy Intermediate rash, Verified 10/02/19 08:04 [From MACRODANTIN] itching Review of Systems Review of Systems Narrative: Review of systems are all negative except for those mentioned in the history of present illness. Patient History Medical History Colostomy complication (Inactive) Colostomy in place (Chronic) 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) Easy bruisability (Acute) History of pulmonary embolus (PE) (Chronic) Incontinence (Acute) Leg swelling (Acute) Lumbar hernia (Acute) Neuropathy (Acute) Port-A-Cath in place (Acute) Rectal carcinoma (Acute) Retained urethral stent (Acute) S/p nephrectomy (Acute) Surgical History History of low anterior resection of rectum (Acute) Family History Mother Hypertension Cancer Son Hypertension Grandfather Heart disease Social History household members: family lives independently: Yes Smoking Status: Former smoker Tobacco: How many years used: 60 alcohol intake: current substance use type: does not use Smoking Status: Former smoker alcohol intake frequency: holidays/special occasions only Substance Use Type: does not use Exam Narrative Exam Narrative: PHYSICAL EXAM: CONSTITUTIONAL: Awake, Alert, Oriented, Coherent, Cooperative in NAD. Patient is cooperative and pleasant. She appears chronically ill brunson and anemic. HEAD: AT/NC EENT: PERRL, FROM of eyes, conjunctiva appear pale NOSE:No epistaxis or nasal drainage MOUTH:Oral mucosa is moist and pale pink, posterior pharynx is without erythema or exudate. NECK: Supple, no obvious JVD, Trachea is midline without stridor, no palpable LN. SPINE: Palpationof the cervical, Thoracic, Lumbar or Sacral spine reveals no gross deformity or tenderness. No CVA tenderness. THORAX: No deformity, retractions, chest wall tenderness. LUNGS: Clear, symmetrical breath sounds without respiratory distress. HEART: Normal heart tones, regular rhythm and rate without murmur. ABDOMEN: Soft, non-tender, left lower quadrant colostomy. EXTREMITIES: No edema, deformity, tenderness or cyanosis. SKIN: No rash, bruising, petechiae or purpura. NEURO: Awake, alert, oriented, conversive, cranial nerves II-XII are symmetrical , moves all 4 extremities and is ambulatory. MENTAL HEALTH: Does not appear anxious or depressed. She appears tired and weak. Initial Vital Signs Initial Vital Signs: Vital Signs Temperature 99.3 F 10/02/19 08:04 Pulse Rate 106 H 10/02/19 08:04 Respiratory Rate 20 10/02/19 08:04 Blood Pressure 147/64 H 10/02/19 08:04 Pulse Oximetry 94 10/02/19 08:04 Course Course Course Narrative: 0945: The patient's white blood count is 16.6 hemoglobin is 12.5 hematocrit is 39.1, creatinine is 1.8 for GFR is 26.6 was she is a little bit lower than it was before lactic acid is 1.1, procalcitonin is 0.58. The patient's chest x-ray revealed no acute cardiopulmonary pathology. CT of her head and brain revealed no acute intracranial pathology. There was no sinus or mastoid pathology. No evidence of a stroke hemorrhage or mass effect. 1100: The patient feels much better she has received her antibiotics her INR is therapeutic the patient will be discharged home with a walker for safety when ambulating.She was prescribed Cefdinir 300 mg b.i.d. for her urinary tract infection. She was advised to follow-up with her primary care physician and be re-evaluated in 48-72 hours. She was encouraged she drink between 2 and 4 L of fluid per day to keep herself hydrated. Orders Ordered: ED Orders 10/02/19 09:38 Urinalysis and Microscopic Stat Urine Culture Stat Discontinued Medications Acetaminophen (Tylenol) 975 mg PO NOW ONE Stop: 10/02/19 10:21 Last Admin: 10/02/19 10:25 Dose: 975 mg Documented by: KEVIN Sodium Chloride (Normal Saline 0.9%) 1,000 mls @ 1,000 mls/hr IV BOLUS ONE Stop: 10/02/19 09:10 Last Infusion: 10/02/19 09:14 Dose: 0 mls/hr Documented by: Admin: 10/02/19 08:28 Dose: 1,000 mls/hr Documented by: KEVIN Cefepime HCl 2 gm/ Sodium (Chloride) 100 mls @ 200 mls/hr IV NOW ONE Stop: 10/02/19 09:57 Last Infusion: 10/02/19 10:55 Dose: 0 mls/hr Documented by: Admin: 10/02/19 10:12 Dose: 200 mls/hr Documented by: KEVIN Sodium Chloride (Normal Saline 0.9%) 1,000 mls @ 1,000 mls/hr IV BOLUS ONE Stop: 10/02/19 11:13 Last Infusion: 10/02/19 11:24 Dose: 400 mls/hr Documented by: Admin: 10/02/19 10:14 Dose: 1,000 mls/hr Documented by: KEVIN Vital Signs Vital signs: Vital Signs - 8 hr 10/02/19 10:03 10/02/19 10:07 10/02/19 10:30 Temperature Pulse Rate 91 H 92 H 88 Respiratory Rate 26 H 18 29 H Blood Pressure 157/71 H Pulse Oximetry 87 L 99 97 10/02/19 11:09 10/02/19 11:19 Temperature 99.2 F Pulse Rate 96 H Respiratory Rate Blood Pressure 136/64 Pulse Oximetry 97 MDM - Weakness Medical Records Attestation: I reviewed the patient's medical records. Lab Data Attestation: I reviewed the patient's lab results. Result diagrams: 10/02/19 07:45 10/02/19 07:45 Labs: Lab Results 10/02/19 10/02/19 10/02/19 Range/Units 07:45 07:45 07:45 WBC 16.6 H (4.5-11.0) X10^3/uL RBC 4.81 (4.0-5.2) X10^6/uL Hgb 12.5 (12.0-16.0) g/dL Hct 39.1 (36-46) % MCV 81.3 (80-100) fL MCH 26.0 (26-34) PG MCHC 32.0 (30-36) % RDW 16.4 H (11.6-14.8) % Plt Count 287 (150-400) X10^3/uL Neut % (Auto) 81.4 H (50-75) % Lymph % (Auto) 8.3 L (25-40) % [place] % (Auto) 9.5 (3-14) % Eos % (Auto) 0.1 L (2-4) % Baso % (Auto) 0.7 (0-2) % Neut # (Auto) 27691 H (4417-9473) /uL Lymph # (Auto) 1400 (0649-2301) /uL [place] # (Auto) 1600 H (0-900) /uL Eos # (Auto) 0 (0-450) /uL Baso # (Auto) 100 (0-100) /uL PT 25.5 H D (10.1-12.7) SECONDS INR 2.2 H (0.9-1.3) APTT 30 D (26.4-36.2) SECONDS Sodium (137-145) mmol/L Potassium (3.4-5.1) mmol/L Chloride (98-107) mmol/L Carbon Dioxide (22-32) mmol/L BUN (7-17) mg/dL Creatinine (0.52-1.04) mg/dL Estimated GFR (>60) mL/min BUN/Creatinine Ratio (6-22) Glucose (80-110) mg/dL Lactate (0.7-2.1) mmol/L Calcium (8.4-10.2) mg/dL Total Bilirubin (0.2-1.3) mg/dL AST (14-36) IU/L ALT (<35) IU/L Alkaline Phosphatase (38-126) U/L Total Creatine Kinase (30-135) U/L CK-MB (CK-2) CK-MB (CK-2) Rel Index Troponin I (0.01-0.034) ng/mL NT-Pro-B Natriuret Pep (<450) pg/mL Total Protein (6.3-8.2) g/dL Albumin (3.5-5.0) g/dL Globulin (1.7-4.1) g/dL Albumin/Globulin Ratio (1.0-2.8) Lipase (23-300) U/L Procalcitonin 0.58 H (<0.5) ng/mL TSH (0.47-4.68) uIU/mL Urine Color Urine Appearance Urine pH (4.5-8.0) Ur Specific [place] (1.000-1.035) Urine Protein (Negative) Urine Glucose (UA) (Negative) g/dL Urine Ketones (NEGATIVE) Urine Occult Blood (Negative) Urine Nitrate (Negative) Urine Bilirubin (NEGATIVE) Urine Urobilinogen (0.2) E.U./dL Ur Leukocyte Esterase (NEGATIVE) Urine RBC (0-5/HPF) Urine WBC (0-5/HPF) Ur Squamous Epith Cells (0-5/HPF) Urine Bacteria (None) Ur Culture Indicated? 10/02/19 10/02/19 10/02/19 Range/Units 07:45 07:45 07:45 WBC (4.5-11.0) X10^3/uL RBC (4.0-5.2) X10^6/uL Hgb (12.0-16.0) g/dL Hct (36-46) % MCV (80-100) fL MCH (26-34) PG MCHC (30-36) % RDW (11.6-14.8) % Plt Count (150-400) X10^3/uL Neut % (Auto) (50-75) % Lymph % (Auto) (25-40) % [place] % (Auto) (3-14) % Eos % (Auto) (2-4) % Baso % (Auto) (0-2) % Neut # (Auto) (6612-1661) /uL Lymph # (Auto) (9491-6518) /uL [place] # (Auto) (0-900) /uL Eos # (Auto) (0-450) /uL Baso # (Auto) (0-100) /uL PT (10.1-12.7) SECONDS INR (0.9-1.3) APTT (26.4-36.2) SECONDS Sodium 135 L (137-145) mmol/L Potassium 4.3 (3.4-5.1) mmol/L Chloride 108 H (98-107) mmol/L Carbon Dioxide 17 L (22-32) mmol/L BUN 27 H (7-17) mg/dL Creatinine 1.84 H (0.52-1.04) mg/dL Estimated GFR 26.6 L (>60) mL/min BUN/Creatinine Ratio 14.7 (6-22) Glucose 135 H (80-110) mg/dL Lactate (0.7-2.1) mmol/L Calcium 10.2 (8.4-10.2) mg/dL Total Bilirubin 0.8 (0.2-1.3) mg/dL AST 19 (14-36) IU/L ALT 12 (<35) IU/L Alkaline Phosphatase 142 H (38-126) U/L Total Creatine Kinase 40 (30-135) U/L CK-MB (CK-2) TNP CK-MB (CK-2) Rel Index TNP Troponin I < 0.012 (0.01-0.034) ng/mL NT-Pro-B Natriuret Pep 731 H (<450) pg/mL Total Protein 8.3 H (6.3-8.2) g/dL Albumin 4.1 (3.5-5.0) g/dL Globulin 4.2 H (1.7-4.1) g/dL Albumin/Globulin Ratio 1.0 (1.0-2.8) Lipase 34 (23-300) U/L Procalcitonin (<0.5) ng/mL TSH 0.329 L (0.47-4.68) uIU/mL Urine Color Urine Appearance Urine pH (4.5-8.0) Ur Specific [place] (1.000-1.035) Urine Protein (Negative) Urine Glucose (UA) (Negative) g/dL Urine Ketones (NEGATIVE) Urine Occult Blood (Negative) Urine Nitrate (Negative) Urine Bilirubin (NEGATIVE) Urine Urobilinogen (0.2) E.U./dL Ur Leukocyte Esterase (NEGATIVE) Urine RBC (0-5/HPF) Urine WBC (0-5/HPF) Ur Squamous Epith Cells (0-5/HPF) Urine Bacteria (None) Ur Culture Indicated? 10/02/19 10/02/19 Range/Units 08:45 09:38 WBC (4.5-11.0) X10^3/uL RBC (4.0-5.2) X10^6/uL Hgb (12.0-16.0) g/dL Hct (36-46) % MCV (80-100) fL MCH (26-34) PG MCHC (30-36) % RDW (11.6-14.8) % Plt Count (150-400) X10^3/uL Neut % (Auto) (50-75) % Lymph % (Auto) (25-40) % [place] % (Auto) (3-14) % Eos % (Auto) (2-4) % Baso % (Auto) (0-2) % Neut # (Auto) (9152-0003) /uL Lymph # (Auto) (4578-5905) /uL [place] # (Auto) (0-900) /uL Eos # (Auto) (0-450) /uL Baso # (Auto) (0-100) /uL PT (10.1-12.7) SECONDS INR (0.9-1.3) APTT (26.4-36.2) SECONDS Sodium (137-145) mmol/L Potassium (3.4-5.1) mmol/L Chloride (98-107) mmol/L Carbon Dioxide (22-32) mmol/L BUN (7-17) mg/dL Creatinine (0.52-1.04) mg/dL Estimated GFR (>60) mL/min BUN/Creatinine Ratio (6-22) Glucose (80-110) mg/dL Lactate 1.1 (0.7-2.1) mmol/L Calcium (8.4-10.2) mg/dL Total Bilirubin (0.2-1.3) mg/dL AST (14-36) IU/L ALT (<35) IU/L Alkaline Phosphatase (38-126) U/L Total Creatine Kinase (30-135) U/L CK-MB (CK-2) CK-MB (CK-2) Rel Index Troponin I (0.01-0.034) ng/mL NT-Pro-B Natriuret Pep (<450) pg/mL Total Protein (6.3-8.2) g/dL Albumin (3.5-5.0) g/dL Globulin (1.7-4.1) g/dL Albumin/Globulin Ratio (1.0-2.8) Lipase (23-300) U/L Procalcitonin (<0.5) ng/mL TSH (0.47-4.68) uIU/mL Urine Color Yellow Urine Appearance Cloudy Urine pH 7.5 (4.5-8.0) Ur Specific [place] 1.010 (1.000-1.035) Urine Protein 1+ H (Negative) Urine Glucose (UA) Negative (Negative) g/dL Urine Ketones Negative (NEGATIVE) Urine Occult Blood 3+ H (Negative) Urine Nitrate Positive H (Negative) Urine Bilirubin Negative (NEGATIVE) Urine Urobilinogen 0.2 (0.2) E.U./dL Ur Leukocyte Esterase 3+ H (NEGATIVE) Urine RBC 10-30/hpf H (0-5/HPF) Urine WBC >100/hpf H (0-5/HPF) Ur Squamous Epith Cells 1-5 /hpf (0-5/HPF) Urine Bacteria Many (>30) H (None) Ur Culture Indicated? Specimen cultured Urine Dip Bedside Urine Glucose Negative Bedside Urine Bilirubin - Negative Bedside Urine Ketone - Negative Urine Specific [place] 1.010 Bedside Urine Occult Blood +++ Bedside Urine pH 7.0 Bedside Urine Protein ++ 100 Bedside Urine Urobilinogen - Negative Bedside Urine Nitrite + Positive Bedside Urine Leukocytes +++ 500 Esterase ECG Data Attestation: I personally reviewed and interpreted this ECG as follows: Interpretation: 0823: The patient's EKG obtained at 8:10 a.m. reveals a normal sinus rhythm with a ventricular rate of 95. The intervals appear to be normal with the p.r. interval being 162 milliseconds, QTC see is 417 milliseconds QRS is 72 milliseconds. [place] is normal at 18. The patient has T-wave inversions in leads V1. There are no other acute diagnostic ST segment changes. The patient appears to have low voltage criteria. Discharge Plan Departure Patient Disposition: Home Clinical Impression: Urinary frequency, Urinary urgency, Weakness generalized, H/O malignant neoplasm of colon, Confusion Fatigue Qualifiers: Fatigue type: unspecified Qualified Code(s): R53.83 - Other fatigue Headache Qualifiers: Headache type: unspecified Headache chronicity pattern: acute headache Intractability: not intractable Qualified Code(s): R51 - Headache Urinary tract infection Qualifiers: Urinary tract infection type: acute cystitis Hematuria presence: with hematuria Qualified Code(s): N30.01 - Acute cystitis with hematuria Discharge Date/Time: 10/02/19 11:26 Instructions: DI for Dehydration -- Adult, DI for Urinary Tract Infection (UTI), DI for Headache Activity Restrictions/Additional Instructions: 1. Drink 2-4 liters of fluid per day 2. Follow-up with your primary care physician to be re-examined in 48-72 hours i f not improved. If anything changes or gets worse she can always return to the emergency department. 3. Take the cefdinir as prescribed. 4. For your headache you can take Tylenol 500 mg every 4 hours or 1 g every 6 hours. Or you can take 3, 200 mg ibuprofen tablets every 8-6 hours. 5. If you develop worsening weakness fatigue, chest pain persistent nausea and vomiting uncontrolled by the medications, feeling faint you need to return to the emergency department to be re-evaluated. 6. Urinary tract infections frequently cause nausea and vomiting. Take the Zofran 4 mg tablets, 1-2 tablets as needed for nausea and vomiting every 6 hours. Prescriptions: New cefdinir 300 mg capsule 300 mg PO BID Qty: 20 RF: 0 ondansetron HCl [Zofran] 4 mg tablet 4 mg PO Q6H PRN (Reason: nausea and vomiting) Qty: 12 RF: 0 No Action latanoprost 0.005 % drops 1 drp EYE-BOTH BEDTIME RF: 0 lorazepam 0.5 MG tablet 0.5 mg PO PRN PRN (Reason: Anxiety) RF: 0 enoxaparin [Lovenox] 100 mg/mL Syringe 100 mg SUBCUT Q12H Qty: 60 RF: 5 warfarin 5 mg tablet See Rx Instructions .ROUTE .COMPLEX RF: 0 amlodipine [Norvasc] 5 mg tablet 5 mg PO QPM RF: 0 Referrals: Eric Grover MD [Primary Care Provider] -
[2019-10-02] MEDS: SODIUM CHLORIDE 0.9% 1,000 ML 1000 ML IV ×2 (08:28→10:14)
[2019-10-02 08:36] LABS: Add Manual Diff / Slide Review NO; Basophils Absolute Auto 100 /uL (0-100); Basophils Percent Auto 0.7 % (0-2); Eosinophils Absolute Auto 0 /uL (0-450); Eosinophils Percent Auto 0.1 % (2-4); Hematocrit 39.1 % (36-46); Hemoglobin 12.5 g/dL (12.0-16.0); Lymphocytes Absolute Auto 1400 /uL (1100-4500); Lymphocytes Percent Auto 8.3 % (25-40); Mean Corpuscular Volume 81.3 fL (80-100); Monocytes Absolute Auto 1600 /uL (0-900); Monocytes Percent Auto 9.5 % (3-14); Neutrophils Absolute Auto 13500 /uL (1500-7000); Neutrophils Percent Auto 81.4 % (50-75); Platelet Count 287 X10^3/uL (150-400); Red Blood Cell Count 4.81 X10^6/uL (4.0-5.2); Red Cell Distribution Width 16.4 % (11.6-14.8); White Blood Cell Count 16.6 X10^3/uL (4.5-11.0)
[2019-10-02 08:38] LABS: INR 2.2 (0.9-1.3); Prothrombin Time 25.5 SECONDS (10.1-12.7)
--- NOTE | 2019-10-02 08:39 | DI.CT.S_ITS ---
PROCEDURE: CT HEAD/BRAIN WO CON INDICATIONS: bifrontal headache for 2 days, confusion and weakness TECHNIQUE: Noncontrast 4.5 mm thick angled axial sections acquired from the foramen magnum to the vertex, with coronal and sagittal reformats. For radiation dose reduction, the following was used: automated exposure control, adjustment of mA and/or kV according to patient size. COMPARISON: None. FINDINGS: Image quality: Excellent. CSF spaces: Basal cisterns are patent. No extra-axial fluid collections. The ventricles are symmetric in size and shape. Brain: No intracranial bleeds or masses. There is cerebral volume loss for age, with resultant ventricular and sulcal prominence. There are periventricular and deep white matter chronic small vessel ischemic changes. There is intracranial internal carotid artery atherosclerosis. Skull and face: Calvarium and visualized facial bones appear intact, without suspicious lesions. Sinuses: Visualized sinuses and mastoids are clear. IMPRESSION: No evidence acute stroke, hemorrhage, or mass. Dictated by: Everardo Whitehead M.D. on 10/02/2019 at 8:29 Approved by: Everardo Whitehead M.D. on 10/02/2019 at 8:30
[2019-10-02 08:40] LABS: PTT Partial Thromboplastin Tim 30 SECONDS (26.4-36.2)
[2019-10-02 08:42] LABS: Alanine Aminotransferase 12 IU/L (<35); Albumin 4.1 g/dL (3.5-5.0); Alkaline Phosphatase 142 U/L (38-126); Aspartate Aminotransferase 19 IU/L (14-36); BUN Creatinine Ratio 14.7 (6-22); Bilirubin Total 0.8 mg/dL (0.2-1.3); Blood Urea Nitrogen 27 mg/dL (7-17); Calcium 10.2 mg/dL (8.4-10.2); Carbon Dioxide 17 mmol/L (22-32); Chloride 108 mmol/L (98-107); Estimated Glomerular Filt Rate 26.6 mL/min (>60); Globulin 4.2 g/dL (1.7-4.1); Glucose 135 mg/dL (80-110); HEMOLYSIS < 15 (0-50); Lipase 34 U/L (23-300); Potassium 4.3 mmol/L (3.4-5.1); Sodium 135 mmol/L (137-145); Total Protein 8.3 g/dL (6.3-8.2)
[2019-10-02 08:57] LABS: Procalcitonin 0.58 ng/mL (<0.5)
[2019-10-02 09:17] LABS: Lactate (Lactic Acid) 1.1 mmol/L (0.7-2.1)
[2019-10-02 09:56] LABS: Appearance Urine UA CLOUDY; Bilirubin Urine UA NEGATIVE (NEGATIVE); Color Urine UA YELLOW; Glucose Urine UA NEGATIVE (Negative); Ketones Urine UA NEGATIVE (NEGATIVE); Leukocyte Esterase Urine UA 3+ (NEGATIVE); Nitrite Urine UA POSITIVE (Negative); Occult Blood Urine UA 3+ (Negative); Protein Urine UA 1+ (Negative); Urobilinogen Urine UA 0.2 E.U./dL (0.2)
[2019-10-02 10:00] LABS: pH Urine UA 7.5 (4.5-8.0)
[2019-10-02 10:03] VITALS: PULSE 91; RESP 26; O2SAT 87
[2019-10-02 10:05] LABS: Bacteria Urine Many (>30); Culture Indicated Urine Specimen Cultured; RBC Urine 10-30/HPF (0-5/HPF); Squamous Epithelial Cell Urine 1-5 /HPF (0-5/HPF); WBC Urine >100/HPF (0-5/HPF)
[2019-10-02 10:06] LABS: Creatine Kinase 40 U/L (30-135)
[2019-10-02 10:07] VITALS: PULSE 92; RESP 18; O2SAT 99
[2019-10-02] MEDS: CEFEPIME 2 GM in SODIUM CHLORIDE 0.9% 100 ML 200 ML IV (10:12)
[2019-10-02] MEDS: ACETAMINOPHEN 325 MG TABLET 975 MG PO (10:25)
[2019-10-02 10:30] VITALS: BP 157/71; PULSE 88; RESP 29; O2SAT 97
--- NOTE | 2019-10-02 10:57 | PC.NURSE ---
Usually walks with a cane but concerned about mobility when she goes home. Discussed use of walker which pt and family feel is a good idea for increased safety and mobility.
[2019-10-02 11:06] LABS: NT-proBNP (BNP-Adult 18+) 731 pg/mL (<450); Troponin I < 0.012 ng/mL (0.01-0.034)
[2019-10-02 11:09] VITALS: BP 136/64; PULSE 96; O2SAT 97
[2019-10-02 11:19] VITALS: TEMP 37.3
[2019-10-02 11:26] LABS: Thyroid Stimulating Hormone 0.329 uIU/mL (0.47-4.68)
== END 2019-10-02 11:26 | disposition home or self-care (01) ==
PROVIDERS: Emergency Provider Emergency Medicine; PCP Family Medicine
DX: N30.01 Acute cystitis with hematuria (principal); R53.1 Weakness; R51 Headache; I10 Essential (primary) hypertension; R41.0 Disorientation, unspecified
CPT/HCPCS: 36415; 70450; 71045; 80053; 81001; 81003; 82550; 83605; 83690; 83880; 84145; 84443; 84484; 85025; 85610; 85730; 87040; 87077; 87086; 87186; 93005; 93010; 96361; 96365; 99284; J0692

== ENCOUNTER → 2019-10-05 11:10 | Outpatient (CLI) | payer MEDICARE, SELFPAY ==
[2019-10-05 11:57] LABS: INR 4.1 (0.9-1.3); Prothrombin Time 46.8 SECONDS (10.1-12.7)
== END ==
PROVIDERS: PCP Family Medicine; Referring Provider Internal Medicine; Visit Provider Internal Medicine
DX: C20 Malignant neoplasm of rectum (principal); Z79.01 Long term (current) use of anticoagulants
CPT/HCPCS: 36415; 85610

== ENCOUNTER → 2019-10-07 10:26 | Outpatient (CLI) | payer MEDICARE, SELFPAY ==
[2019-10-07 12:25] LABS: INR 2.8 (0.9-1.3); Prothrombin Time 32.2 SECONDS (10.1-12.7)
== END ==
PROVIDERS: PCP Family Medicine; Referring Provider Internal Medicine; Visit Provider Internal Medicine
DX: C20 Malignant neoplasm of rectum (principal)
CPT/HCPCS: 36415; 85610

== ENCOUNTER → 2019-11-02 10:09 | Outpatient (CLI) | payer MEDICARE, SELFPAY ==
--- NOTE | 2019-11-02 | DI.US.S_ITS ---
PROCEDURE: US PERIP VENOUS LOW EXTREM LT INDICATIONS: HX DVT, PE TECHNIQUE: Real-time imaging, as well as color and pulse Doppler interrogation, were performed of the lower extremity deep veins from the inguinal ligament to the popliteal fossa. COMPARISON: [facility], PERIP VENOUS LOW EXTREM LT, 08/10/2019, 11:55. FINDINGS: The common femoral, femoral and popliteal veins are normally compressible, and free of intraluminal thrombus. Color and pulse Doppler demonstrate normal phasic intraluminal flow. There is normal augmentation response to distal compression maneuver. IMPRESSION: Resolved left superficial femoral venous thrombosis. Dictated by: Timothy Hernandez [facility] Interpreted: Yamila Pyle MD on 11/02/2019 at 11:15 Approved by: Yamila Pyle MD, PhD on 11/02/2019 at 13:03
== END ==
PROVIDERS: PCP Family Medicine; Referring Provider Internal Medicine; Visit Provider Internal Medicine
DX: M79.605 Pain in left leg (principal); R60.0 Localized edema; L53.9 Erythematous condition, unspecified; C20 Malignant neoplasm of rectum; Z86.711 Personal history of pulmonary embolism; Z86.718 Personal history of other venous thrombosis and embolism
CPT/HCPCS: 93971

== ENCOUNTER → 2020-01-13 17:57 | Outpatient (CLI) | payer MEDICARE, SELFPAY ==
[2020-01-13 19:04] LABS: Appearance Urine UA CLOUDY; Bilirubin Urine UA NEGATIVE (NEGATIVE); Color Urine UA YELLOW; Glucose Urine UA NEGATIVE (Negative); Ketones Urine UA NEGATIVE (NEGATIVE); Leukocyte Esterase Urine UA 2+ (NEGATIVE); Nitrite Urine UA NEGATIVE (Negative); Occult Blood Urine UA 3+ (Negative); Protein Urine UA 2+ (Negative); Urobilinogen Urine UA 0.2 E.U./dL (0.2)
[2020-01-13 19:16] LABS: RBC Urine >100/HPF (0-5/HPF); Squamous Epithelial Cell Urine 0-1 /HPF (0-5/HPF); WBC Urine >100/HPF (0-5/HPF)
[2020-01-13 19:17] LABS: Amorphous Sediment Urine 1+; Bacteria Urine Many (>30); Culture Indicated Urine Specimen Cultured
== END ==
PROVIDERS: PCP Family Medicine; Referring Provider Urology; Visit Provider Urology
DX: Z87.440 Personal history of urinary (tract) infections (principal)
CPT/HCPCS: 81001; 87077; 87086; 87186

== ENCOUNTER → 2020-01-15 14:39 | Outpatient (CLI) | payer MEDICARE, SELFPAY ==
[2020-01-16 15:14] LABS: COVID19 Sendout Not Detected (Not Detect)
== END ==
PROVIDERS: PCP Family Medicine; Visit Provider Physician Assistant
DX: Z01.812 Encounter for preprocedural laboratory examination (principal)
CPT/HCPCS: 87635

== ENCOUNTER 2020-01-18 13:42 | Day surgery (SDC) | payer MEDICARE, SELFPAY ==
[2020-01-18] VITALS (8 sets, daily range): BP systolic 109–165; BP diastolic 61–83; PULSE 65–78; RESP 10–16; TEMP 36.3–36.9; O2SAT 94–99; BMI 34.9
--- NOTE | 2020-01-18 | PATH_ITS ---
[facility] Accession Number: [id number] . 01 Material submitted: . rectum - RECTAL . 02 Diagnosis: Rectum, Biopsies: Fragments of ulcer and markedly inflamed submucosa with reactive atypia; please see comment. Negative for cytomegalovirus or herpes simplex virus inclusions by immunohistochemistry. No evidence of intracellular organisms on an AB/PAS stain. No evidence of malignancy. COUNTS INCLUDE 234 BEDS AT THE [facility] 01/24/2020 1525 Local . 02 Comment: Sections are of ulcer and markedly inflamed submucosal tissue. Scattered atypical histiocytes are present. No infectious organisms are identified. The clinical history of rectal cancer is noted, and the atypical histiocytes seen could be consistent with radiation therapy in the appropriate clinical setting. There is no evidence of malignancy in the sampled material. . As part of routine quality assurance consultant, Dr. Hicks has reviewed this case and agrees that there is no evidence of malignancy. . 02 Electronically signed: . Ryland Duran MD, PhD, Pathologist NPI- [id number] . 01 Gross description: . The specimen is received in formalin, labeled rectum and consists of multiple r[place]-pink fragments of soft tissue, measuring 2.0 x 1.0 x 0.2 cm in aggregate. The specimen is filtered and entirely submitted in cassette A1. ([id number]) /COUNTS INCLUDE 234 BEDS AT THE [facility] 01/19/2020 1643 Local . 02 Microscopic: . Sections are of inflamed granulation tissue with ulcer, as well as submucosal tissue with marked chronic inflammation consisting predominantly of plasma cells. Also, present are scattered large cells with abundant foamy cytoplasm and enlarged irregular nuclei. To further characterize the lesion, a panel of immunohistochemical and special stains are performed (each with an appropriately positive control). An BEBO stain highlights scattered strips of intact colorectal epithelium; the atypical cells are negative for BEBO immunoreactivity. A CD68 immunohistochemical stain highlights the large foamy cells, consistent with foamy histiocytes. CMV and HSV immunohistochemical stains are negative for cytomegalovirus or herpes simplex virus inclusions, respectively. There are no intracellular organisms identified on an AB/PAS stain. The overall features are that of a reactive inflammatory process. There is no evidence of neoplasm in the sampled material. . * This test was developed and its performance characteristics determined by [facility]. It has not been cleared or approved by the U.S. Food and Drug Administration. The FDA has determined that such clearance or approval is not necessary. This test is used for clinical purposes. It should not be regarded as investigational or for research. . 02 Pathologist provided ICD-10: K62.5, K63.3 . 02 CPT . 600622, 162406, F36251, [id number] Performed at: 01 [facility] [address] [id number] MD Primo Mabry MD Phone: [phone] Performed at: 02 [facility] [address] [place] [id number] MD Debbie Hicks MD Phone: [phone]
[2020-01-18] MEDS: LACTATED RINGERS 1,000 ML 42 ML IV (14:25)
--- NOTE | 2020-01-18 15:02 | PM.PREOP ---
Pre-operative Note COVID-19 COVID-19 status: Negative Result date/Date tested (Pos, Neg/Pending): 01/15/20 Interval Note History & Physical reviewed/Exam performed by Physician: Yes Changes to H&P: No
[2020-01-18] MEDS: DIBUCAINE 1% OINT 28 GM 1 APPLIC TOP (15:59)
--- NOTE | 2020-01-18 16:10 | P.OP_ITS ---
Operative Date/Time/Diagnoses Date of procedure: 01/18/20 Time of procedure: 16:10 Pre-op diagnosis: Rectal bleeding, history of rectal cancer Post-op diagnosis: other (Mucosal abnormality 10cm from anal verge) Procedure & Clinicians Procedure: Flexible sigmoidoscopy, biopsy of mucosal abnormality of rectum with jumbo forceps; cauterization of bleeding mass using hot snare Same procedure as scheduled: Yes Indications: 79 yo woman with massive parastomal and ventral hernias, associated with diverting colostomy, with significant deconditioning, rectal cancer, on anticoagulation with history of significant PE's while anticoagulated. Recent history of rectal bleeding below diverting colostomy. The patient has been deemed too high risk for surveillance colonoscopy or for takedown of the diverting colostomy due to her comorbidities. Due to the patient's high risk of cardiac or respiratory complications from this procedure, our anesthesiologist was consulted to manage the patient's airway and sedation during the procedure. Surgeon: Helen Escalante Click Yes if Unassisted: Yes Anesthesia Type: MAC +/- Operative Notes Findings: 3cm x 4cm area of firm, friable neoplastic appearing mucosa 10cm from anal verge, suspicious for recurrent rectal cancer, proctitis, or inflammatory scar tissue. Specimen(s): other (rectal biopsy) Estimated Blood Loss (mL): 5 Procedure in detail: The patient was brought to the room and placed in left lateral decubitus position with all bony prominences padded. A time-out was performed and then the patient was placed under monitored anesthesia by Dr. Meeks. Once adequately sedated, the procedure was begun. A rectal exam was performed revealing a palpable firm area of the rectum at about 10cm from the anal verge. The colonoscope was then introduced to the rectum. At 10-12cm an area of firm friable mucosa was identified. The area was 3cm x 4cm and abutted the colorectal anastomosis. It bleed on contact with the scope. Multiple biopsies were taken with jumbo forceps. Hot snare was used to cauterize the bleeding mass. The scope was then advanced beyond the anastomosis. No other sources of bleeding were seen. Two rolled gelfoam with Dibucaine were placed in the rectum for hemostasis. The scope was then withdrawn from the rectum the pro cedure was concluded. The patient tolerated the procedure well and was transferred to the PACU in stable condition. Complications: none Post-operative Condition: stable Disposition: PACU
[2020-01-18] MEDS: fentaNYL 100 MCG/2 ML INJ IV (16:29)
--- NOTE | 2020-01-18 17:33 | SUR.PHASEII ---
1715-Pt up to br with cane, ambulating gait steady. Rectum site clear no bleeding noted. Pt now dressing in br and changing her own colostomy bag, refusing help.
== END 2020-01-18 17:25 | disposition home or self-care (01) ==
PROVIDERS: PCP Family Medicine; Referring Provider Family Medicine; Visit Provider Surgery
PROC: 0DJD8ZZ Inspection of Lower Intestinal Tract, Via Natural or Artificial Opening Endoscopic (ICD-10-PCS; CPT 45378; principal; 2020-01-18 15:45)
DX: K62.5 Hemorrhage of anus and rectum (principal); K62.89 Other specified diseases of anus and rectum; K94.09 Other complications of colostomy; K43.9 Ventral hernia without obstruction or gangrene; K64.2 Third degree hemorrhoids; Z85.048 Personal history of other malignant neoplasm of rectum, rectosigmoid junction, and anus; Z79.01 Long term (current) use of anticoagulants; Z86.718 Personal history of other venous thrombosis and embolism; Z86.711 Personal history of pulmonary embolism; Z87.891 Personal history of nicotine dependence; K63.3 Ulcer of intestine
CPT/HCPCS: 45334; 45331; J2250; J2704; J3010

== ENCOUNTER 2020-01-28 13:39 | Emergency (ER) | payer MEDICARE, SELFPAY ==
[2020-01-28 13:50] VITALS: BP 144/72; PULSE 83; RESP 18; TEMP 36.6; O2SAT 99; BMI 34.9
--- NOTE | 2020-01-28 13:58 | ED_ITS ---
HPI - Female Genitourinary General Chief complaint: Urogenital-Female Stated complaint: UTI Time Seen by Provider: 01/28/20 13:45 Source: patient Mode of arrival: Ambulatory Limitations: no limitations History of Present Illness HPI Narrative: Patient is a 79-year-old female with multiple medical comorbidities including rectal cancer and right nephrectomy, recurrent UTIs, a left ureteral stent. She states that her left your ureteral stent frequently gets replaced about every 3 months. She has had increasing pain over the last week and her pain is significantly worse today. She denies any fever chills nausea or vomiting. She has the urine culture all January 12 grew E coli. She was initially placed on Bactrim which she says did nothing she was changed to Levaquin on the and she continues to be on it. She says it has not helped with her pain. She is followed by Dr. Rowland Urology over at [facility] Related Data Home Medications Medication Instructions Recorded Confirmed latanoprost 1 drp EYE-BOTH BEDTIME 02/09/18 01/26/20 lorazepam 0.5 mg PO PRN PRN 02/09/18 01/26/20 amlodipine [Norvasc] 5 mg PO QPM 03/29/18 01/26/20 Previous Rx's Medication Instructions Recorded ondansetron HCl [Zofran] 4 mg PO Q6H PRN #12 tab 10/02/19 hydrocodone-acetaminophen 1 tab PO Q6H PRN #10 tab 01/28/20 Allergies Allergy/AdvReac Type Severity Reaction Status Date / Time cashew nut Allergy Severe Anaphylaxis Verified 01/28/20 13:50 ciprofloxacin [CIPROFLOXACIN] Allergy Intermediate HIVES UP Verified 01/28/20 13:50 ARM RIGHT AFTER IV DOSE STARTED nitrofurantoin Allergy Intermediate rash, Verified 01/28/20 13:50 [From MACRODANTIN] itching Review of Systems Review of Systems ROS Unobtainable: All systems reviewed & are unremarkable except as noted in HPI and below Constitutional Constitutional: Denies chills, Denies daytime sleepiness and Denies fever(s) Eyes Eyes: Denies change in vision, Denies eye discharge, Denies irritation and Denies loss of vision Cardiovascular Cardiovascular: Denies chest pain, Denies irregular heart rhythm, Denies lightheadedness, Denies palpitations, Denies dyspnea, Denies dyspnea on exertion and Denies orthopnea Respiratory Respiratory: Denies cough, Denies dyspnea, Denies dyspnea on exertion and Denies wheezing Gastrointestinal Gastrointestinal: Denies abdominal pain, Denies change in bowel habits, Denies diarrhea, Denies nausea and Denies vomiting Genitourinary Genitourinary: Reports as per HPI Genitourinary: Reports as per HPI Musculoskeletal Musculoskeletal: Reports back pain, Denies deformity and Denies arthralgias Integumentary/Breasts Skin/Breast: Denies pruritus, Denies erythema, Denies rash and Denies wounds Neurologic Neurologic: Denies loss of vision Endocrine Endocrine: Denies palpitations Allergic/Immunologic Allergic/Immunologic: Denies wheezing Patient History Medical History Colostomy complication (Inactive) Colostomy in place (Chronic) 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) Easy bruisability (Acute) History of pulmonary embolus (PE) (Chronic) Incontinence (Acute) Leg swelling (Acute) Lumbar hernia (Acute) Neuropathy (Acute) Port-A-Cath in place (Acute) Rectal cancer (Inactive) Rectal carcinoma (Acute) Retained urethral stent (Acute) S/p nephrectomy (Acute) Surgical History History of low anterior resection of rectum (Acute) Family History Mother Hypertension Cancer Son Hypertension Grandfather Heart disease alcohol intake frequency: holidays/special occasions only Substance Use Type: does not use Exam Initial Vital Signs Initial Vital Signs: Vital Signs Temperature 97.8 F 01/28/20 13:50 Pulse Rate 83 01/28/20 13:50 Respiratory Rate 18 01/28/20 13:50 Blood Pressure 144/72 H 01/28/20 13:50 Pulse Oximetry 99 01/28/20 13:50 GENERAL: Pleasant but does and in no acute distress. HEENT: Head atraumatic,EOMI, pupils reactive, face symmetric, moist mucous membranes CARDIOVASCULAR: Regular rate and rhythm without murmurs, rubs or gallops. RESPIRATORY: Breath sounds equal bilaterally, no wheezes rales or rhonchi. ABDOMEN: Soft, ostomy multiple hernia, nontender : Left CVA tenderness EXTREMITIES: Normal range of motion, no clubbing or edema. Neurovascularly intact NEUROLOGICAL: Alert and oriented x4.Normal gait and speech SKIN: Warm, dry, no laceration, no petechiae, no rashes or lesions. Course Orders Ordered: ED Orders 01/28/20 13:54 Ictotest Urine Stat Urinalysis and Microscopic Stat Urine Culture Stat 01/28/20 14:05 Complete Blood Count AUTO DIFF Stat Comprehensive Metabolic Panel Stat Lactate (Lactic Acid) Stat Procalcitonin Stat 01/28/20 14:06 XR abdomen 1V Stat 01/28/20 14:30 Blood Culture Stat Discontinued Medications Ceftriaxone Sodium/Dextrose (Rocephin) 2 gm in 50 mls @ 100 mls/hr IV NOW ONE Stop: 01/28/20 14:35 Last Infusion: 01/28/20 15:40 Dose: 0 mls/hr Documented by: Admin: 01/28/20 14:53 Dose: 100 mls/hr Documented by: KIARA Vital Signs Vital signs: Vital Signs - 8 hr 01/28/20 13:50 01/28/20 14:04 01/28/20 14:05 Temperature 97.8 F Pulse Rate 83 89 87 Respiratory Rate 18 Blood Pressure 144/72 H 166/76 H Pulse Oximetry 99 95 95 01/28/20 17:02 Temperature Pulse Rate 80 Respiratory Rate 16 Blood Pressure 152/70 H Pulse Oximetry 98 MDM - Female Genitourinary Lab Data Result diagrams: 01/28/20 14:05 01/28/20 14:05 Labs: Lab Results 01/28/20 01/28/20 01/28/20 Range/Units 13:54 14:05 14:05 WBC 5.1 (4.5-11.0) X10^3/uL RBC 4.19 (4.0-5.2) X10^6/uL Hgb 10.9 L (12.0-16.0) g/dL Hct 34.4 L (36-46) % MCV 82.1 (80-100) fL MCH 25.9 L (26-34) PG MCHC 31.6 (30-36) % RDW 17.0 H (11.6-14.8) % Plt Count 282 (150-400) X10^3/uL Neut % (Auto) 62.2 (50-75) % Lymph % (Auto) 22.5 L (25-40) % [place] % (Auto) 8.1 (3-14) % Eos % (Auto) 6.1 H (2-4) % Baso % (Auto) 1.1 (0-2) % Neut # (Auto) 3200 (0224-8429) /uL Lymph # (Auto) 1200 (6233-9774) /uL [place] # (Auto) 400 (0-900) /uL Eos # (Auto) 300 (0-450) /uL Baso # (Auto) 100 (0-100) /uL Sodium (137-145) mmol/L Potassium (3.4-5.1) mmol/L Chloride (98-107) mmol/L Carbon Dioxide (22-32) mmol/L BUN (7-17) mg/dL Creatinine (0.52-1.04) mg/dL Estimated GFR (>60) mL/min BUN/Creatinine Ratio (6-22) Glucose (80-110) mg/dL Lactate (0.7-2.1) mmol/L Calcium (8.4-10.2) mg/dL Total Bilirubin (0.2-1.3) mg/dL AST (14-36) IU/L ALT (<35) IU/L Alkaline Phosphatase (38-126) U/L Total Protein (6.3-8.2) g/dL Albumin (3.5-5.0) g/dL Globulin (1.7-4.1) g/dL Albumin/Globulin Ratio (1.0-2.8) Procalcitonin < 0.05 (<0.5) ng/mL Urine Color Brown Urine Appearance Cloudy Urine pH 6.5 (4.5-8.0) Ur Specific [place] 1.020 (1.000-1.035) Urine Protein 3+ H (Negative) Urine Glucose (UA) Trace H (Negative) g/dL Urine Ketones Trace H (NEGATIVE) Urine Occult Blood 3+ H (Negative) Urine Nitrate Positive H (Negative) Urine Bilirubin 1+ H (NEGATIVE) Ur Bilirubin Confirm Negative (Negative) Urine Urobilinogen 0.2 (0.2) E.U./dL Ur Leukocyte Esterase 2+ H (NEGATIVE) Urine RBC >100/hpf H (0-5/HPF) Urine WBC 10-30/hpf H (0-5/HPF) Urine Bacteria Many (>30) H (None) Ur Culture Indicated? Specimen cultured 01/28/20 01/28/20 Range/Units 14:05 14:05 WBC (4.5-11.0) X10^3/uL RBC (4.0-5.2) X10^6/uL Hgb (12.0-16.0) g/dL Hct (36-46) % MCV (80-100) fL MCH (26-34) PG MCHC (30-36) % RDW (11.6-14.8) % Plt Count (150-400) X10^3/uL Neut % (Auto) (50-75) % Lymph % (Auto) (25-40) % [place] % (Auto) (3-14) % Eos % (Auto) (2-4) % Baso % (Auto) (0-2) % Neut # (Auto) (4929-4697) /uL Lymph # (Auto) (0701-1424) /uL [place] # (Auto) (0-900) /uL Eos # (Auto) (0-450) /uL Baso # (Auto) (0-100) /uL Sodium 138 (137-145) mmol/L Potassium 4.5 (3.4-5.1) mmol/L Chloride 113 H (98-107) mmol/L Carbon Dioxide 17 L (22-32) mmol/L BUN 28 H (7-17) mg/dL Creatinine 1.64 H (0.52-1.04) mg/dL Estimated GFR 30.4 L (>60) mL/min BUN/Creatinine Ratio 17.1 (6-22) Glucose 101 (80-110) mg/dL Lactate 1.2 (0.7-2.1) mmol/L Calcium 9.6 (8.4-10.2) mg/dL Total Bilirubin 0.3 (0.2-1.3) mg/dL AST 15 (14-36) IU/L ALT 9 (<35) IU/L Alkaline Phosphatase 120 (38-126) U/L Total Protein 7.6 (6.3-8.2) g/dL Albumin 3.8 (3.5-5.0) g/dL Globulin 3.8 (1.7-4.1) g/dL Albumin/Globulin Ratio 1.0 (1.0-2.8) Procalcitonin (<0.5) ng/mL Urine Color Urine Appearance Urine pH (4.5-8.0) Ur Specific [place] (1.000-1.035) Urine Protein (Negative) Urine Glucose (UA) (Negative) g/dL Urine Ketones (NEGATIVE) Urine Occult Blood (Negative) Urine Nitrate (Negative) Urine Bilirubin (NEGATIVE) Ur Bilirubin Confirm (Negative) Urine Urobilinogen (0.2) E.U./dL Ur Leukocyte Esterase (NEGATIVE) Urine RBC (0-5/HPF) Urine WBC (0-5/HPF) Urine Bacteria (None) Ur Culture Indicated? Imaging Data Abdominal x-ray: Radiologist's Impression: PROCEDURE: XR ABDOMEN 1V INDICATIONS: stent placement TECHNIQUE: One view of the abdomen acquired. COMPARISON: [facility], CR, XR RETROGRADE UROGRAPHY, 11/04/2019, 10:01. [facility], CT, CT CHEST ABD PEL WO CON, 09/16/2019, 10:49. FINDINGS: Surgical changes and devices: There is a left-sided double-J stent seen. A left sided ostomy is seen inferiorly. Right-sided postoperative clips are seen, including cholecystectomy clips. L5 vertebral osseous cement is seen. Bowel: Bowel gas pattern is normal. Soft tissues: No suspicious abdominal calcifications. Pelvic phleboliths are incidentally noted. Visualized solid organ contours appear normal in size. Bones: No suspicious bony lesions. Age-appropriate bony degenerative changes are seen. IMPRESSION: Unremarkable left-sided double-J stent. Numerous postoperative changes are seen. Dictated by: Fareed Terrazas M.D. on 01/28/2020 at 13:39 Approved by: Fareed Terrazas M.D. on 01/28/2020 at 13:41 MDM Narrative Medical decision making narrative: Patient overall does not appear septic she is afebrile without leukocytosis. She does have a positive urine culture from January 12 which appears to be pansensitive and E coli. She is given a dose of Rocephin in the ED based upon this culture. 4:[address] rodriguez notified of the patient she is quite familiar with her. This time recommends continuing her antibiotics they will see her in clinic this week unlikely change stent out on Thursday. Patient is agreeable to this pain plan but would like something for pain, it is quite unclear. I discussed all findings with the patient, Education has been performed regarding treatment plan, diagnosis, warning signs and symptoms and all concerns have been addressed. Verbally agree with and understood all of the above. Discharge Plan Departure Patient Disposition: Home Clinical Impression: UTI (urinary tract infection) Discharge Date/Time: 01/28/20 17:04 Instructions: DI for Urinary Tract Infection (UTI) Activity Restrictions/Additional Instructions: *You have been diagnosed with UTI, stent pain *What to do: I have spoken with Dr. Rodriguez, who states to continue your antibiotics and she will get 2 on the schedule to remove stent this Thursday *Continue to take medications as directed [place] 1 tablet every 6 hours if needed for severe pain *Follow up with your primary care provider in 2-3 days *Return to ER if you should have worsening pain, fever, nausea, weakness or any new, worsening or concerning symptoms Prescriptions: New hydrocodone-acetaminophen 5-325 mg tablet 1 tab PO Q6H PRN (Reason: pain) Qty: 10 RF: 0 No Action latanoprost 0.005 % drops 1 drp EYE-BOTH BEDTIME RF: 0 lorazepam 0.5 MG tablet 0.5 mg PO PRN PRN (Reason: Anxiety) RF: 0 amlodipine [Norvasc] 5 mg tablet 5 mg PO QPM RF: 0 ondansetron HCl [Zofran] 4 mg tablet 4 mg PO Q6H PRN (Reason: nausea and vomiting) Qty: 12 RF: 0 Referrals: Nyasia Rodriguez MD [Non-Staff] - Deejay Rowland DO [Non-Staff] - Eric Grover MD [Primary Care Provider] -
[2020-01-28 14:02] LABS: Appearance Urine UA CLOUDY; Bilirubin Urine UA 1+ (NEGATIVE); Glucose Urine UA TRACE g/dL (Negative); Ketones Urine UA TRACE (NEGATIVE); Leukocyte Esterase Urine UA 2+ (NEGATIVE); Nitrite Urine UA POSITIVE (Negative); Occult Blood Urine UA 3+ (Negative); Protein Urine UA 3+ (Negative); Urobilinogen Urine UA 0.2 E.U./dL (0.2)
[2020-01-28 14:04] VITALS: PULSE 89; O2SAT 95
[2020-01-28 14:05] VITALS: BP 166/76; PULSE 87; O2SAT 95
--- NOTE | 2020-01-28 14:06 | DI.RAD.S_ITS ---
PROCEDURE: XR ABDOMEN 1V INDICATIONS: stent placement TECHNIQUE: One view of the abdomen acquired. COMPARISON: [facility], CR, XR RETROGRADE UROGRAPHY, 11/04/2019, 10:01. [facility], CT, CT CHEST ABD PEL WO CON, 09/16/2019, 10:49. FINDINGS: Surgical changes and devices: There is a left-sided double-J stent seen. A left sided ostomy is seen inferiorly. Right-sided postoperative clips are seen, including cholecystectomy clips. L5 vertebral osseous cement is seen. Bowel: Bowel gas pattern is normal. Soft tissues: No suspicious abdominal calcifications. Pelvic phleboliths are incidentally noted. Visualized solid organ contours appear normal in size. Bones: No suspicious bony lesions. Age-appropriate bony degenerative changes are seen. IMPRESSION: Unremarkable left-sided double-J stent. Numerous postoperative changes are seen. Dictated by: Fareed Terrazas M.D. on 01/28/2020 at 13:39 Approved by: Fareed Terrazas M.D. on 01/28/2020 at 13:41
[2020-01-28 14:12] LABS: Color Urine UA BROWN; pH Urine UA 6.5 (4.5-8.0)
[2020-01-28 14:13] LABS: Bacteria Urine Many (>30); Culture Indicated Urine Specimen Cultured; Ictotest Urine Negative (Negative); RBC Urine >100/HPF (0-5/HPF); WBC Urine 10-30/HPF (0-5/HPF)
[2020-01-28 14:26] LABS: Add Manual Diff / Slide Review NO; Basophils Absolute Auto 100 /uL (0-100); Basophils Percent Auto 1.1 % (0-2); Eosinophils Absolute Auto 300 /uL (0-450); Eosinophils Percent Auto 6.1 % (2-4); Hematocrit 34.4 % (36-46); Hemoglobin 10.9 g/dL (12.0-16.0); Lymphocytes Absolute Auto 1200 /uL (1100-4500); Lymphocytes Percent Auto 22.5 % (25-40); Mean Corpuscular HGB Conc 31.6 % (30-36); Mean Corpuscular Hemoglobin 25.9 PG (26-34); Mean Corpuscular Volume 82.1 fL (80-100); Monocytes Absolute Auto 400 /uL (0-900); Monocytes Percent Auto 8.1 % (3-14); Neutrophils Absolute Auto 3200 /uL (1500-7000); Neutrophils Percent Auto 62.2 % (50-75); Platelet Count 282 X10^3/uL (150-400); Red Blood Cell Count 4.19 X10^6/uL (4.0-5.2); White Blood Cell Count 5.1 X10^3/uL (4.5-11.0)
[2020-01-28 14:41] LABS: Lactate (Lactic Acid) 1.2 mmol/L (0.7-2.1)
[2020-01-28 14:42] LABS: Alanine Aminotransferase 9 IU/L (<35); Albumin 3.8 g/dL (3.5-5.0); Alkaline Phosphatase 120 U/L (38-126); Aspartate Aminotransferase 15 IU/L (14-36); BUN Creatinine Ratio 17.1 (6-22); Bilirubin Total 0.3 mg/dL (0.2-1.3); Blood Urea Nitrogen 28 mg/dL (7-17); Calcium 9.6 mg/dL (8.4-10.2); Carbon Dioxide 17 mmol/L (22-32); Chloride 113 mmol/L (98-107); Estimated Glomerular Filt Rate 30.4 mL/min (>60); Globulin 3.8 g/dL (1.7-4.1); Glucose 101 mg/dL (80-110); HEMOLYSIS < 15 (0-50); Potassium 4.5 mmol/L (3.4-5.1); Sodium 138 mmol/L (137-145); Total Protein 7.6 g/dL (6.3-8.2)
[2020-01-28] MEDS: CEFTRIAXONE 2 GM/50 ML FROZ.PIGGY IV (14:53)
[2020-01-28 14:57] LABS: Procalcitonin < 0.05 ng/mL (<0.5)
[2020-01-28 17:02] VITALS: BP 152/70; PULSE 80; RESP 16; O2SAT 98
== END 2020-01-28 17:04 | disposition home or self-care (01) ==
PROVIDERS: Emergency Provider Emergency Medicine; PCP Family Medicine
DX: N39.0 Urinary tract infection, site not specified (principal)
CPT/HCPCS: 36415; 74018; 80053; 81001; 83605; 84145; 85025; 87040; 87086; 96365; 99284; J0696

== ENCOUNTER → 2020-03-27 09:37 | Outpatient (CLI) | payer MEDICARE, SELFPAY ==
[2020-03-27 10:55] LABS: COVID19 -Nasal RAPID Negative (Negative)
== END ==
PROVIDERS: PCP Family Medicine; Visit Provider Surgery
DX: Z20.828 Contact with and (suspected) exposure to other viral communicable diseases (principal)
CPT/HCPCS: 87635; C9803

== ENCOUNTER 2020-03-28 10:10 | Day surgery (SDC) | payer MEDICARE, SELFPAY ==
[2020-03-28] VITALS (7 sets, daily range): BP systolic 113–164; BP diastolic 44–72; PULSE 66–95; RESP 16–18; TEMP 36.1–36.8; O2SAT 97–99; BMI 36.5
--- NOTE | 2020-03-28 | PATH_ITS ---
[facility] Accession Number: [id number] . 01 Material submitted: . PART A: colon - COLON BIOPSY AT 45CM PART B: rectum - DISTAL RECTAL BIOPSY . 02 Diagnosis: A. Colon at 45 cm, Biopsy: Colonic mucosa with prominent benign lymphoid aggregate. Negative for active or microscopic colitis. Negative for granulomata, dysplasia or malignancy. Additional step sections examined. . B. Distal Rectum, Biopsy: Ulcer bed/inflamed granulation tissue. Negative for cytomegalovirus inclusions by immunohistochemistry. Negative for dysplasia or malignancy. MRV 04/03/2020 1313 Local . 02 Electronically signed: . Ryland Duran MD, PhD, Pathologist NPI- [id number] . 01 Gross description: . A. Received in formalin, labeled colon biopsy at 45 cm consists of two [place] fragments of soft tissue measuring 0.5 x 0.4 x 0.2 cm in aggregate. The specimen is entirely submitted in cassette A1. B. Received in formalin, labeled distal rectum consists of a 0.3 x 0.2 x 0.2 cm [place]-pink fragment of soft tissue which is entirely submitted in cassette B1. ([id number]) /MRV 03/29/2020 0948 Local . 02 Microscopic: . Part B: Sections are of ulcer bed consisting of inflamed granulation tissue nad purulent exudate. A few nests of epithelioid cells without significant nuclear atypia are seen within the granulation tissue. A limited panel of immunohistochemical stains is performed (each with an appropriately positive control). The nested epithelioid cells are strongly and diffusely positive for CD68 immunoreactivity, and are negative for BEBO immunoreactivity. The overall features are consistent with reactive histiocytes. No malignancy is seen. Additionally, a CMV immunohistochemical stain is negative for cytomegalovirus inclusions. . * This test was developed and its performance characteristics determined by [facility]. It has not been cleared or approved by the U.S. Food and Drug Administration. The FDA has determined that such clearance or approval is not necessary. This test is used for clinical purposes. It should not be regarded as investigational or for research. . 02 Pathologist provided ICD-10: Z85.048, K62.6 . 02 CPT . 242304, 241341, G37690, [id number] Performed at: 01 [facility] [address] [place] [address] [id number] MD Primo Mabry MD Phone: [phone] Performed at: 02 [facility] [id number] [place] [address] [id number] MD Debbie Hicks MD Phone: [phone]
[2020-03-28] MEDS: SODIUM CHLORIDE 0.9% 1,000 ML 150 ML IV (11:21)
--- NOTE | 2020-03-28 11:51 | PM.HP.1 ---
History of Present Illness History of Present Illness Date Patient Seen: 03/28/20 Time Patient Seen: 11:51 Chief complaint: FLEX SIG Narrative: This patient is here for follow up colonoscopy. To review: she his a 78 yo woman with history of rectal cancer resected in March 2014, with diverting loop colostomy which has never been taken down. 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 Over the years, she has developed massive ventral/parastomal hernias. She also had a prior lumbar hernia which continues to enlarge. She has been evaluated by several surgeons here, as well being seen as a referral for second opinion at for hernia repair and colostomy takedown. I do not have notes from that referral, but the patient tells me that surgery was not offered because she is deemed a very high risk surgical candidate. She was also denied a follow up colonoscopy for her rectal cancer due to her high surgical risk. Interval change 01/12/2020: The past several months the patient has noted increasing rectal drainage. It has become darker, and at 1 time became bloody. It is much different in appearance from the ostomy output. She denies any pain in her rectum, fevers, or other new symptoms. Interval [id number]/26/2020: On 01/15, the patient had a flexible sigmoidoscopy and found a large ulcerated lesion at the anastomosis of this patient's rectal resection. I biopsied it very aggressively and cauterized it to try and stop the bleeding. The patient was instructed to stay off of her Xarelto until the bleeding stopped. Essentially the biopsy was found to be non malignant, noncancerous, and consistent with an inflammatory ulcer, possibly due to radiation injury of the mucosa. 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 She says she has not had any bleeding until last Thursday, when she saw some significant blood when she wiped her bottom. She has had a tiny amount of bleeding each day since then. She reports that she has not been very consistent about doing the milk enemas, and has stopped them altogether since the bleeding started last week. ROS: Appetite and energy level have been low but stable. No new shortness of breath. She denies any persistent new aches or pains. She denies any other changes in her health. Ten system review is negative other than as mentioned here and in HPI. Exam: GENERAL: Well groomed and cooperative. Appears stated age. Answers questions promptly and appropriately. Vital signs noted. HENT: Normocephalic, atraumatic. Hearing intact. Oral mucosa is pink and moist. EYES: Conjunctiva pink, sclera white, no periorbital swelling. CARDIOVASCULAR: Regular rate. RESPIRATORY: Normal respiratory rate, breathing comfortably on room air. MUSCULOSKELETAL: Antalgic gait, using cane. Equal tone and mass bilaterally. SKIN: Warm, dry, soft, appropriate color for ethnicity. No other lesions, rashes, or wounds. NEURO: Alert and Oriented X 3. Good coordination. No gross neuro/sensory deficits PSYCH: Appropriate affect and mood. [facility] Medical History Colostomy complication (Inactive) Colostomy in place (Chronic) 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) Easy bruisability (Acute) History of pulmonary embolus (PE) (Chronic) Incontinence (Acute) Leg swelling (Acute) Lumbar hernia (Acute) Neuropathy (Acute) Port-A-Cath in place (Acute) Rectal cancer (Inactive) Rectal carcinoma (Acute) Retained urethral stent (Acute) S/p nephrectomy (Acute) Surgical History History of low anterior resection of rectum (Acute) Family History Mother Hypertension Cancer Son Hypertension Grandfather Heart disease Social History household members: family lives independently: Yes Smoking Status: Former smoker Tobacco: How many years used: 60 alcohol intake: current substance use type: does not use Vital Signs 01/26/20 09:59 Blood Pressure 132/70 Blood Pressure Location Rt brachial Blood Pressure Position Sitting Pulse Rate 104 H Pulse Source Monitor Temperature 97.3 F L Temperature Source Temporal Artery Scan Pulse Oximetry 96 Oxygen Delivery Method room air Objective Data Objective Data: [address] [address] Pathology Diagnostic Report Signed Ordering Physician: Helen Escalante MD Patient name: Sherlyn Ward Date of : 1940 Admit Date: 01/18/[address]: Ryland Duran MD Collection Date: 01/18/20 [facility] Accession Number: [id number] . 01 Material submitted: . rectum - RECTAL . 02 Diagnosis: Rectum, Biopsies: Fragments of ulcer and markedly inflamed submucosa with reactive atypia; please see comment. Negative for cytomegalovirus or herpes simplex virus inclusions by immunohistochemistry. No evidence of intracellular organisms on an AB/PAS stain. No evidence of malignancy. [facility] 01/24/2020 1525 Local . 02 Comment: Sections are of ulcer and markedly inflamed submucosal tissue. Scattered atypical histiocytes are present. No infectious organisms are identified. The clinical history of rectal cancer is noted, and the atypical histiocytes seen could be consistent with radiation therapy in the appropriate clinical setting. There is no evidence of malignancy in the sampled material. . As part of routine clinical quality rn, Dr. Hicks has reviewed this case and agrees that there is no evidence of malignancy. . 02 Electronically signed: . Ryland Duran MD, PhD, Pathologist NPI- [id number] . 01 Gross description: . The specimen is received in formalin, labeled rectum and consists of multiple ragsdale-pink fragments of soft tissue, measuring 2.0 x 1.0 x 0.2 cm in aggregate. The specimen is filtered and entirely submitted in cassette A1. ([id number]) /[facility] 01/19/2020 1643 Local . 02 Microscopic: . Sections are of inflamed granulation tissue with ulcer, as well as submucosal tissue with marked chronic inflammation consisting predominantly of plasma cells. Also, present are scattered large cells with abundant foamy cytoplasm and enlarged irregular nuclei. To further characterize the lesion, a panel of immunohistochemical and special stains are performed (each with an appropriately positive control). An BEBO stain highlights scattered strips of intact colorectal epithelium; the atypical cells are negative for BEBO immunoreactivity. A CD68 immunohistochemical stain highlights the large foamy cells, consistent with foamy histiocytes. CMV and HSV immunohistochemical stains are negative for cytomegalovirus or herpes simplex virus inclusions, respectively. There are no intracellular organisms identified on an AB/PAS stain. The overall features are that of a reactive inflammatory process. There is no evidence of neoplasm in the sampled material. . * This test was developed and its performance characteristics determined by [facility]. It has not been cleared or approved by the U.S. Food and Drug Administration. The FDA has determined that such clearance or approval is not necessary. This test is used for clinical purposes. It should not be regarded as investigational or for research. . 02 Pathologist provided ICD-10: K62.5, K63.3 . 02 CPT . 493896, 547215, N15793, D01592 Performed at: 01 [facility] [address] [place] [address] [id number] MD Primo Mabry MD Phone: [phone] Performed at: 02 [facility] [id number] [place] [address] [id number] MD Debbie Hicks MD Phone: [phone] Dictated By:Ryland Duran MD Signed By:01/24/202005 DD/ 0218 TD/TT: 01/24/202005 Assessment & Plan (1) History of rectal cancer: Status: Chronic Assessment and Plan - Helen Escalante MD: This is a 79-year-old woman with complex medical and surgical history including VTE while on anticoagulation, rectal cancer, massive ventral and parastomal hernias, diverting loop colostomy which has never been taken down, who is now having new onset rectal bleeding for the last couple of months. 30 minutes were spent face to face with the patient. More than 50% of the time was spent in counseling and co-ordination of care regarding her complex history, her recent symptoms, recent procedure, and pathology results. We had a long discussion about the potential causes of this ulceration in her rectum. 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 When the rectal mucosa does not see stool, it does not get adequate nutrients to maintain the mucosal integrity, and begins to breakdown become inflamed. In addition to that she has had radiation at this site, which is also likely contributing to the damage. Thankfully there is no evidence of cancer recurrence, although my clinical suspicion is not completely assuaged by the pathology results. Usually short chain fatty acid enemas are used to treat radiation proctitis. These can be quite expensive, and somewhat difficult to obtain. I have discussed this with some of my colorectal colleagues, who using recommend enemas with 2% or whole milk in order to provide the short chain fatty acid exposure needed by the rectum. I discussed this with the patient, who says she has no problems giving herself an enema, and would be willing to do this if it would help treat the problem. I told her I think that this is are most reasonable approach, with plans to follow up and do a repeat flexible sigmoidoscopy in a couple of months. I directed the patient to do an enema daily and hold as long as she can, using 50-100 cc of 2% her whole milk in a disposable or reuseable enema bottle. She said she would be able to do this without any trouble, and will contact us if she has a tough time getting a hold of the enema bottle or giving herself the enemas. Plan: Daily short chain fatty acid enemas, using 2% or whole milk as described above Follow-up in 2 months for flexible sigmoidoscopy under MAC (rather than conscious sedation due to patient comorbidities) Follow-up sooner if worsening symptoms or other concerns arise Patient History Medical History (Updated 03/28/20 @ 12:01 by Helen Escalante MD) 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 Easy bruisability History of pulmonary embolus (PE) Incontinence Leg swelling Lumbar hernia Neuropathy Port-A-Cath in place Rectal cancer Rectal carcinoma Retained urethral stent S/p nephrectomy Surgical History History of low anterior resection of rectum Family & Social History Family History Mother Hypertension Cancer Son Hypertension Grandfather Heart disease Social History: household members family lives independently Yes Tobacco & Substance use: Tobacco type cigarettes Smoking Status Current every day smoker Smoking packs per day 0.15 alcohol intake current alcohol intake frequency holiday/special occasion Substance Use Type does not use Meds Home Medications and Allergies Home Medications Medication Instructions Recorded Confirmed Type latanoprost 1 drp EYE-BOTH BEDTIME 02/09/18 03/28/20 History lorazepam 0.5 mg PO PRN PRN 02/09/18 03/28/20 History amlodipine [Norvasc] 5 mg PO QPM 03/29/18 03/28/20 History hydrocodone-acetaminophen 1 tab PO Q6H PRN #10 tab 01/28/20 03/28/20 Rx rivaroxaban [Xarelto] 20 mg PO DAILY 03/28/20 03/28/20 History Allergies Allergy/AdvReac Type Severity Reaction Status Date / Time cashew nut Allergy Severe Anaphylaxis Verified 03/28/20 10:36 ciprofloxacin [CIPROFLOXACIN] Allergy Intermediate HIVES UP Verified 03/28/20 10:36 ARM RIGHT AFTER IV DOSE STARTED nitrofurantoin Allergy Intermediate rash, Verified 03/28/20 10:36 [From MACRODANTIN] itching Exam Vital Signs (past 8 hours): - 03/28/20 10:57 Temperature 96.9 F L Pulse Rate 80 Respiratory Rate 16 Blood Pressure 164/69 H Pulse Oximetry 99 Oxygen Delivery Method Room Air Assessment & Plan Assessment and plan (1) Colitis with rectal bleeding: Status: Acute (2) Anticoagulated: Problem details: lab is followed, currently 1.8 INR, no change for now. Status: Chronic (3) Colostomy complication: Status: Inactive (4) History of pulmonary embolus (PE): Problem details: Remains on anticoagulation Status: Chronic (5) Hypertension: Problem details: Does seem to be a history of this in the past. Has been quite persistent during this hospitalization, somewhat better on lisinopril but in light of renal disease will switch to amlodipine Status: Chronic Assessment & Plan narrative: This is a 79-year-old woman with complex medical and surgical history including VTE while on anticoagulation, rectal cancer, massive ventral and parastomal hernias, diverting loop colostomy which has never been taken down, who is now having new onset rectal bleeding for the last couple of months. The patient has been doing using 50-100 cc whole milk enemas on an intermittent basis (was instructed to do daily, but admits she has been inconsistent). She is having a small amount of rectal bleeding which started up again over the past week. She is also having some scant bleeding from the distal limb of the colostomy. She has held her Xarelto for the past two days and is here for flex sig. Risks and benefits of flexible sigmoidoscopy and possible biopsy were discussed with the patient including risk of bleeding, perforation, need for additional procedures, risks of anesthesia. The patient desires to proceed with the colonoscopy procedure. Plan: Flex sig today, possible biopsies Continue daily short chain fatty acid enemas, using 2% or whole milk as described above Follow up in office to disucss putting milk down the distal limb of her colon with a block. Will consider in discussion with ostomy nurse. Follow up in two weeks in the office Follow-up sooner if worsening symptoms or other concerns arise COVID-19 negative on 03/27/2020 Quality VTE Deep Vein Thrombosis/Pulmonary Embolism Present on Admission: No
[2020-03-28] MEDS: DIBUCAINE 1% OINT 28 GM 1 APPLIC TOP (12:43)
--- NOTE | 2020-03-28 12:47 | P.OP_ITS ---
Operative Date/Time/Diagnoses Date of procedure: 03/28/20 Time of procedure: 12:47 Pre-op diagnosis: Rectal bleeding, diversion proctitis Post-op diagnosis: same Procedure & Clinicians Procedure: Flexible sigmoidoscopy, biopsy with standard forceps; cauterization of bleeding with cautery. Anesthesiologist required for sedation due to patient's significant comorbidities and high risk for cardiac or respiratory complications. Same procedure as scheduled: Yes Indications: History of rectal cancer, diversion colitis treated with SCFA enemas, recurrent bleeding Surgeon: Helen Escalante Click Yes if Unassisted: Yes Anesthesia Type: General Operative Notes Findings: Petichea throughout distal colon and rectum, improved from prior scope two months ago; rectal ulcer improved from prior but with some slough and bleeding Specimen(s): other (Colon biopsy 45cm, biopsy of distal rectum ulcer) Estimated Blood Loss (mL): 15 Procedure in detail: The patient was brought to the room and placed in left lateral decubitus position with all bony prominences padded. A time-out was performed and then the patient was given procedural sedation by Dr. Rousseau. Vitals were monitored throughout the procedure and remained stable. Once adequately sedated, the procedure was begun. A rectal exam was performed reve aling no abnormalities. The colonoscope was then introduced to the rectum and advanced through the rectum and distal colon carefully to the loop ostomy. Diffuse petechia were seen in patchy areas throughout the entire distal colon. Biopsies were taken. The anastomosis of the colon to rectum was patent, and without stenosis. A large 3 cm x 3 cm ulcer was seen in the rectum with some sloughing mucosa and sloughing scar tissue, similar to the prior scope but significantly improved. Biopsies were taken. Hot snare was used to cauterize bleeding areas of the rectal ulcer, with adequate hemostasis. The tissue was quite friable but not actively bleeding at the conclusion of the procedure. A large Gelfoam coated with Dibucaine was placed into the rectum to help with hemostasis. The patient tolerated the procedure well. She was awakened from anesthesia and was transferred to the PACU in stable condition. Complications: none Post-operative Condition: stable Disposition: PACU
--- NOTE | 2020-03-28 12:56 | SUR.OPER ---
gelfoam with dibucaine rectal insert by Dr. Escalante at end of case
== END 2020-03-28 13:48 | disposition home or self-care (01) ==
PROVIDERS: PCP Family Medicine; Referring Provider Family Medicine; Visit Provider Surgery
PROC: 0DJD8ZZ Inspection of Lower Intestinal Tract, Via Natural or Artificial Opening Endoscopic (ICD-10-PCS; CPT 45378; principal; 2020-03-28 11:15)
DX: K62.6 Ulcer of anus and rectum (principal); Z85.048 Personal history of other malignant neoplasm of rectum, rectosigmoid junction, and anus; K62.89 Other specified diseases of anus and rectum; Z79.01 Long term (current) use of anticoagulants; K94.00 Colostomy complication, unspecified; Z86.711 Personal history of pulmonary embolism; I10 Essential (primary) hypertension
CPT/HCPCS: 45334; 45331; J2250; J2704; J3010

== ENCOUNTER → 2020-05-18 13:34 | Outpatient (CLI) | payer MEDICARE, SELFPAY ==
[2020-05-18 16:30] LABS: Appearance Urine UA CLOUDY; Bilirubin Urine UA NEGATIVE (NEGATIVE); Color Urine UA RED; Glucose Urine UA NEGATIVE (Negative); Ketones Urine UA TRACE (NEGATIVE); Leukocyte Esterase Urine UA 2+ (NEGATIVE); Nitrite Urine UA POSITIVE (Negative); Occult Blood Urine UA 3+ (Negative); Protein Urine UA 3+ (Negative); Specific Gravity Urine UA 1.015 (1.000-1.035); Urobilinogen Urine UA 0.2 E.U./dL (0.2)
[2020-05-18 16:46] LABS: Bacteria Urine Few (2-10); Culture Indicated Urine Specimen Cultured; RBC Urine >100/HPF (0-5/HPF); WBC Urine 30-100/HPF (0-5/HPF)
== END ==
PROVIDERS: PCP Family Medicine; Referring Provider Urology; Visit Provider Urology
DX: Z87.440 Personal history of urinary (tract) infections (principal); R31.9 Hematuria, unspecified
CPT/HCPCS: 81001; 87077; 87086

== ENCOUNTER → 2020-05-23 10:24 | Outpatient (CLI) | payer MEDICARE, SELFPAY ==
--- NOTE | 2020-05-23 | DI.RAD.S_ITS ---
PROCEDURE: XR CHEST 2V INDICATIONS: Dyspnea on excertion TECHNIQUE: 2 views of the chest were acquired. COMPARISON: [facility], CR, XR CHEST 1V, 10/02/2019, 9:02. [facility], CR, XR CHEST 2V, 05/25/2018, 11:24. FINDINGS: Surgical changes and devices: None. Lungs and pleura: Lungs are abnormal with a chronic interstitial prominence best seen at the right lower lung, but no mass or definite pneumonia is found. Lung volumes are large, lungs appear somewhat flattened at the bases on the lateral view. No pleural effusions or pneumothorax. Mediastinum: Mediastinal contours are normal. Heart size is normal. Bones and chest wall: No suspicious bony abnormalities. Soft tissues appear unremarkable. IMPRESSION: Interstitial prominence and large lung volumes, suspect COPD. Please correlate for prior smoking history. Dictated by: Cal Sullivan M.D. on 05/23/2020 at 11:17 Approved by: Cal Sullivan M.D. on 05/23/2020 at 11:22
== END ==
PROVIDERS: PCP Family Medicine; Referring Provider Family Medicine; Visit Provider Family Medicine
DX: R06.00 Dyspnea, unspecified (principal)
CPT/HCPCS: 71046

== ENCOUNTER → 2020-05-31 10:50 | Outpatient (CLI) | payer MEDICARE, SELFPAY ==
[2020-05-31 13:18] LABS: COVID19 -Nasal RAPID Negative (Negative)
== END ==
PROVIDERS: PCP Family Medicine; Referring Provider Internal Medicine; Visit Provider Internal Medicine
DX: Z20.822 Contact with and (suspected) exposure to COVID-19 (principal)
CPT/HCPCS: 87635; C9803

== ENCOUNTER → 2020-06-01 08:52 | Outpatient (CLI) | payer MEDICARE, SELFPAY ==
--- NOTE | 2020-06-13 09:54 | PM.PFT.1 ---
Pulmonary Function Test Referral & Results Date Patient Seen: 06/01/20 Requesting provider: Eric Grover Results: The spirometry demonstrates an FVC of 2.39 L which is 75% of predicted. The FEV1 was measured at 1.72 L which is 72% of predicted. The FEV1/FVC ratio was 72 which is 97% of predicted. Following the administration of bronchodilator there was a 44% improvement in FEF 25-75%. Lung volumes show an SVC of 5.08 L which is 163% of predicted. Patient was unable to complete the DLCO The maximum voluntary ventilation was minimally reduced Interpretation: This study demonstrates probable mild obstructive lung disease based on reduction FEV1 as well as improvement in FEF 25-75% after bronchodilator, although FEV1/FVC ratio is preserved
== END ==
PROVIDERS: PCP Family Medicine; Referring Provider Family Medicine; Visit Provider Family Medicine
DX: R06.09 Other forms of dyspnea (principal)
CPT/HCPCS: 94060; 94726

== ENCOUNTER → 2020-06-05 10:24 | Outpatient (CLI) | payer MEDICARE, SELFPAY ==
[2020-06-05 12:46] LABS: Bilirubin Urine UA NEGATIVE (NEGATIVE); Glucose Urine UA NEGATIVE (Negative); Ketones Urine UA TRACE (NEGATIVE); Leukocyte Esterase Urine UA 2+ (NEGATIVE); Nitrite Urine UA POSITIVE (Negative); Occult Blood Urine UA 3+ (Negative); Protein Urine UA 3+ (Negative); Specific Gravity Urine UA 1.015 (1.000-1.035); Urobilinogen Urine UA 0.2 E.U./dL (0.2); pH Urine UA 6.5 (4.5-8.0)
[2020-06-05 12:48] LABS: Color Urine UA RED
[2020-06-05 12:49] LABS: Appearance Urine UA Slightly Cloudy
[2020-06-05 13:02] LABS: Bacteria Urine Many (>30); Culture Indicated Urine Specimen Cultured; RBC Urine >100/HPF (0-5/HPF); Renal Epithelial Cells Urine 1-5/HPF (0-1/HPF); Squamous Epithelial Cell Urine 5-10 /HPF (0-5/HPF); Transitional Epi Cells Urine 1-5/HPF (0-5/HPF); WBC Urine >100/HPF (0-5/HPF); White Blood Cell Casts Urine 5-10/LPF
== END ==
PROVIDERS: PCP Family Medicine; Referring Provider Urology; Visit Provider Urology
DX: Z87.440 Personal history of urinary (tract) infections (principal)
CPT/HCPCS: 81001; 87077; 87086; 87186

== ENCOUNTER → 2020-10-05 08:19 | Outpatient (CLI) | payer MEDICARE, SELFPAY ==
[2020-10-05 14:01] LABS: Appearance Urine UA CLOUDY; Bilirubin Urine UA 1+ (NEGATIVE); Color Urine UA BROWN; Glucose Urine UA NEGATIVE (Negative); Ketones Urine UA NEGATIVE (NEGATIVE); Leukocyte Esterase Urine UA 2+ (NEGATIVE); Nitrite Urine UA POSITIVE (Negative); Occult Blood Urine UA 3+ (Negative); Protein Urine UA 3+ (Negative); Urobilinogen Urine UA 0.2 E.U./dL (0.2)
[2020-10-05 14:09] LABS: Ictotest Urine Negative (Negative); RBC Urine >100/HPF (0-5/HPF); Renal Epithelial Cells Urine 0-1/HPF (0-1/HPF); Squamous Epithelial Cell Urine 0-1 /HPF (0-5/HPF); WBC Urine >100/HPF (0-5/HPF)
[2020-10-05 14:10] LABS: Amorphous Sediment Urine 1+; Bacteria Urine Moderate (10-30); Culture Indicated Urine Specimen Cultured; Mucus Urine 1+ (Negative)
== END ==
PROVIDERS: PCP Family Medicine; Referring Provider Urology; Visit Provider Urology
DX: Z87.440 Personal history of urinary (tract) infections (principal)
CPT/HCPCS: 81001; 87086

== ENCOUNTER → 2020-11-29 12:25 | Outpatient (CLI) | payer MEDICARE, SELFPAY ==
--- NOTE | 2020-11-29 12:30 | DI.MG.S_ITS ---
BILATERAL DIGITAL DIAGNOSTIC MAMMOGRAM 3D/2D: 11/29/2020 CLINICAL: Intermitten pain in bilateral breasts. Comparison is made to exams dated: 12/09/2016 ultrasound biopsy, 12/09/2016 mammogram, 11/13/2016 ultrasound, 11/13/2016 mammogram, and 11/06/2016 mammogram - [facility]. The tissue of both breasts is predominantly fatty. There are benign vascular calcifications in both breasts that are not significantly changed. No significant masses, calcifications, or other findings are seen in either breast. IMPRESSION: BENIGN There is no abnormality seen in either breast to correspond with the area of clinical concern described as diffuse pain mostly involving the lateral aspects, however, recommend clinical follow up for persistent or worsening symptoms, or development of any clinically suspicious findings. There is no mammographic evidence of malignancy. A 1 year screening mammogram is recommended. Findings and recommendations were conveyed to the patient during today's evaluation. This exam was interpreted at Station ID: [id number]. NOTE: For mammograms, a report in lay terms will be sent to the patient. Approximately 15% of breast malignancies will not be visualized mammographically. In the management of a palpable breast mass, a negative mammogram must not discourage biopsy of a clinically suspicious lesion. Electronically Signed By: Trip Riojas M.D. aty/:11/29/2020 13:18:54 copy to: Eric Grover letter sent: Clinical Evaluation ACR BI-RADS Category 2: Benign Finding(s) 3342F
== END ==
PROVIDERS: PCP Family Medicine; Referring Provider Family Medicine; Visit Provider Family Medicine
DX: N64.4 Mastodynia (principal)
CPT/HCPCS: 77066; G0279

== ENCOUNTER → 2020-11-30 11:26 | Outpatient (CLI) | payer MEDICARE, SELFPAY ==
[2020-11-30 12:37] LABS: Add Manual Diff / Slide Review NO; Basophils Absolute Auto 100 /uL (0-100); Basophils Percent Auto 1.3 % (0-2); Eosinophils Absolute Auto 300 /uL (0-450); Hematocrit 31.3 % (36-46); Hemoglobin 9.9 g/dL (12.0-16.0); Lymphocytes Absolute Auto 1200 /uL (1100-4500); Mean Corpuscular HGB Conc 31.6 % (30-36); Mean Corpuscular Hemoglobin 25.2 PG (26-34); Mean Corpuscular Volume 79.9 fL (80-100); Monocytes Absolute Auto 500 /uL (0-900); Monocytes Percent Auto 8.1 % (3-14); Neutrophils Absolute Auto 3600 /uL (1500-7000); Neutrophils Percent Auto 63.6 % (50-75); Platelet Count 313 X10^3/uL (150-400); Red Blood Cell Count 3.91 X10^6/uL (4.0-5.2); Red Cell Distribution Width 17.3 % (11.6-14.8); White Blood Cell Count 5.6 X10^3/uL (4.5-11.0)
[2020-11-30 12:41] LABS: INR 1.6 (0.9-1.3); Prothrombin Time 18.5 SECONDS (10.1-12.7)
[2020-11-30 12:44] LABS: PTT Partial Thromboplastin Tim 36 SECONDS (26.4-36.2)
[2020-11-30 13:22] LABS: BUN Creatinine Ratio 14.5 (6-22); Blood Urea Nitrogen 25 mg/dL (7-17); Calcium 9.5 mg/dL (8.4-10.2); Carbon Dioxide 21 mmol/L (22-32); Chloride 111 mmol/L (98-107); Estimated Glomerular Filt Rate 28.5 mL/min (>60); Glucose 122 mg/dL (80-110); HEMOLYSIS < 15 (0-50); Potassium 4.4 mmol/L (3.4-5.1); Sodium 139 mmol/L (137-145)
== END ==
PROVIDERS: PCP Family Medicine; Referring Provider Urology; Visit Provider Urology
DX: N13.30 Unspecified hydronephrosis (principal); N39.0 Urinary tract infection, site not specified; N39.45 Continuous leakage
CPT/HCPCS: 36415; 80048; 85025; 85610; 85730; 87077; 87086; 87186

== ENCOUNTER 2021-02-27 15:25 | Emergency (ER) | payer MEDICARE, SELFPAY ==
--- NOTE | 2021-02-27 | DI.RAD.S_ITS ---
PROCEDURE: FL CATHETER PATENCY COMPARISON: [facility], CT, CT CHEST ABD PEL WO CON, 09/16/2019, 10:49. [facility], CR, XR RETROGRADE UROGRAPHY, 09/21/2020, 8:48. [facility], XA, SI NEPHROSTOMY, 12/07/2020, 13:49. [facility], XA, SI NEPHROSTOMY TUBE CHANGE, 12/07/2020, 18:28. INDICATIONS: NEPHROSTOMY TUBE PLACEMENT CONFIRMATION FINDINGS: Multiple fluoroscopic images of the left kidney were acquired to determine positioning of the percutaneous nephrostomy tube as well as its patency. Patient reports recent history of difficulties with daily flushing of the nephrostomy tube with new concern of possible displacement secondary to loss of the the retaining suture for the catheter. The pigtail end of the nephrostomy tube projects over the mildly dilated left renal pelvis with dilatation of the proximal left ureter. No extravasation of contrast outside of the upper renal collecting system. Overall, there is persistent dilatation of the upper renal collecting system. There is a possible oval filling defect noted in the distal margin of the imaged left ureter which did not resolve with changes in patient positioning. There is also a possible filling defect noted within 1 of the renal calices. IMPRESSION: Patent left percutaneous nephrostomy tube which appears to be appropriately position within the left renal pelvis. There is persistent dilatation of the upper renal collecting system with possible filling defect noted in the distal margins of the visualized portion of the left ureter. This may represent a renal stone versus possible clot given patient report of recent episodes of bleeding. Recommend further characterization with CT. Findings were discussed with Dr. Thomas of the emergency department. Dictated by: Trip Riojas M.D. on 02/27/2021 at 23:34 Approved by: Trip Riojas M.D. on 02/27/2021 at 23:43
[2021-02-27 15:40] VITALS: BP 168/81; PULSE 96; RESP 18; TEMP 36.9; O2SAT 100; BMI 34.9
--- NOTE | 2021-02-27 19:24 | ED_ITS ---
HPI - Recheck/Abnormal Lab/Rx General Chief Complaint: Recheck/Abnormal Lab/Rx Stated Complaint: STATES NEPHROSTOMY TUBE CAME OUT Time Seen by Provider: 02/27/21 18:12 Source: patient Mode of arrival: Wheelchair History of Present Illness HPI narrative: 80-year-old female. History of a right-sided nephrectomy. Has a left-sided nephrostomy tube in place. She states that was placed in November this year. She comes the emergency department today because of concern that the nephrostomy is not draining. She is scheduled to leave on vacation to go to a wedding tomorrow. Home health today was concerned that potentially the tube was displaced. She reported that the states that keeps the tube in place has come out. Patient also states that she is urinating through her urethra which is not necessarily normal for her since the nephrostomy tube was put in. She states that the nephrostomy tube was placed because of consistent urinary tract infections. Related Data Home Medications Medication Instructions Recorded Confirmed latanoprost 0.005 % eye drops 1 drp EYE-BOTH BEDTIME 02/09/18 01/01/21 lorazepam 0.5 mg tablet 0.5 mg PO PRN PRN 02/09/18 01/01/21 amlodipine 5 mg tablet (Norvasc) 5 mg PO QPM 03/29/18 01/01/21 rivaroxaban 20 mg tablet (Xarelto) 20 mg PO DAILY 03/28/20 01/01/21 Previous Rx's Medication Instructions Recorded hydrocodone 5 mg-acetaminophen 325 1 tab PO Q6H PRN #10 tab 01/28/20 mg tablet Allergies Allergy/AdvReac Type Severity Reaction Status Date / Time cashew nut Allergy Severe Anaphylaxis Verified 02/27/21 16:45 ciprofloxacin [CIPROFLOXACIN] Allergy Intermediate HIVES UP Verified 02/27/21 16:45 ARM RIGHT AFTER IV DOSE STARTED nitrofurantoin Allergy Intermediate rash, Verified 02/27/21 16:45 [From MACRODANTIN] itching Review of Systems Constitutional Constitutional: Denies fever(s) Gastrointestinal Gastrointestinal: Reports system reviewed and no additional complaints, except as documented Genitourinary Genitourinary: Reports system reviewed and no additional complaints, except as documented and Reports as per HPI Integumentary/Breasts Skin/Breast: Reports system reviewed and no additional complaints, except as documented Hematologic/Lymphatic On Anticoagulants: Yes Patient History Medical History 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 Easy bruisability History of pulmonary embolus (PE) Incontinence Leg swelling Lumbar hernia Neuropathy Port-A-Cath in place Rectal cancer Rectal carcinoma Retained urethral stent S/p nephrectomy Surgical History History of low anterior resection of rectum Family History Mother Hypertension Cancer Son Hypertension Grandfather Heart disease Social History household members: family lives independently: Yes Smoking Status: Current some day smoker Tobacco: How many years used: 60 alcohol intake: current substance use type: does not use Smoking Status: Current some day smoker alcohol intake frequency: holidays/special occasions only Substance Use Type: marijuana Exam Initial Vital Signs Initial Vital Signs: Vital Signs Temperature 98.5 F 02/27/21 15:40 Pulse Rate 96 H 02/27/21 15:40 Respiratory Rate 18 02/27/21 15:40 Blood Pressure 168/81 H 02/27/21 15:40 Pulse Oximetry 100 02/27/21 15:40 Const General: cooperative and comfortable Resp Effort & Inspection: normal respiratory effort Cardio Rate: regular rate GI Inspection: normal to inspection Other: Nephrostomy tube appears to be in place from the left flank. The stitch that was holding the tube in place has come out of the skin. No surrounding erythema. Skin Other: Skin around the nephrostomy tube site appears well Neuro General: patient alert, patient awake and moves all extremities Extrem General: normal to inspection Psych Appearance: grossly normal Course Orders Ordered: ED Orders 02/27/21 23:26 CT abdomen pelvis wo con Stat Discontinued Medications Lidocaine/Sodium Bicarbonate (Lido 1%/Sod Bicarb 8.4% (10ml) 10 Ml Syringe) 10 ml INJ NOW ONE Stop: 02/28/21 00:16 Last Admin: 02/28/21 00:22 Dose: 10 ml Documented by: LOWELL Vital Signs Vital signs: Vital Signs - 8 hr 02/28/21 00:50 Pulse Rate 92 H Respiratory Rate 18 Blood Pressure 150/80 H Pulse Oximetry 100 MDM - Recheck/Abnormal Lab/Rx Imaging Data Catheter patency x-ray: Radiologist's Impression: [address] [address] XRay Report Signed Patient: Sherlyn Ward MR#: [id number] : 1940 Acct:[id number] Age/Sex: 80 / F Date of Service: 02/27/21 Loc: ED Accession Number: [id number] ?? Procedure: FL catheter patency Ordering Provider: Isaiah Thomas D.O. PROCEDURE: FL CATHETER PATENCY ? COMPARISON: [facility], CT, CT CHEST ABD PEL WO CON, 09/16/2019, 10:49.? [facility], CR, XR RETROGRADE UROGRAPHY, 09/21/2020, 8:48.? [facility], XA, SI NEPHROSTOMY, 12/07/2020, 13:49.? [facility], XA, SI NEPHROSTOMY TUBE CHANGE, 12/07/2020, 18:28. ? INDICATIONS: NEPHROSTOMY TUBE PLACEMENT CONFIRMATION ? FINDINGS: Multiple fluoroscopic images of the left kidney were acquired to determine positioning of the percutaneous nephrostomy tube as well as its patency.? Patient reports recent history of difficulties with daily flushing of the nephrostomy tube with new concern of possible displacement secondary to loss of the the retaining suture for the catheter. ? The pigtail end of the nephrostomy tube projects over the mildly dilated left renal pelvis with dilatation of the proximal left ureter.? No extravasation of contrast outside of the upper renal collecting system.? Overall, there is persistent dilatation of the upper renal collecting system.? There is a possible oval filling defect noted in the distal margin of the imaged left ureter which did not resolve with changes in patient positioning.? There is also a possible filling defect noted within 1 of the renal calices. ? IMPRESSION:? Patent left percutaneous nephrostomy tube which appears to be appropriately position within the left renal pelvis.? There is persistent dilatation of the upper renal collecting system with possible filling defect noted in the distal margins of the visualized portion of the left ureter.? This may represent a renal stone versus possible clot given patient report of recent episodes of bleeding.? Recommend further characterization with CT. ? Findings were discussed with Dr. Thomas of the emergency department. ? ? Dictated by: Trip Riojas M.D. on 02/27/2021 at 23:34 ? ? Approved by: Trip Riojas M.D. on 02/27/2021 at 23:43?? CT scan - abdomen/pelvis: Radiologist's Impression: Partially obstructing 9 x 7 mm mid left ureteral stone with associated hydronephrosis and inflammatory a pair ureteral and pelvic stranding Left percutaneous nephrostomy tube is appropriately positioned with pigtail components seen in the left renal pelvis Status post rice nephrectomy Multiple abdominal wall hernias appear stable Stable chronic compression fractures of L5 MDM Narrative Medical decision making narrative: The stitch that was holding the nephrostomy tube in place does appear to have come out of the skin. This was replaced with a 0 silk suture. I did discuss the case with Dr. Dennison who is on-call for the patient's primary urologist.. We did perform a catheter placement study with dye which does appear to show it in the correct position. There was some concern about a filling defect within the ureter. The CT scan was ordered per Radiology recommendation in it does show a ureteral stone. Patient is afebrile. No fevers. We did change a stopcock on the nephrostomy tube and afterwards the tube was draining what appeared to be urine. I did discuss the CT scan findings with Dr. Dennison who stated that the patient could follow up as an outpatient and that there was no emergent need for intervention. I did discuss this with the patient. Informed her of the recommendations of her to contact her urologist tomorrow for follow- up. We did discuss the risks of her going on this vacation to attend a wedding. Informed her that things do seem to be in the correct position and she does seem to be draining urine however things could change and she could develop more hydro nephrosis and given her single kidney states this could cause finger issues in potentially dialysis. She expressed understanding of this. Patient will be discharged home care instructions return precautions. She expressed understanding. Her son was at bedside for these discussions Discharge Plan Departure Patient Disposition: Home Clinical Impression: Malfunction of nephrostomy tube, Left ureteral stone Activity Restrictions/Additional Instructions: Continue to take all of your medications as directed. It was recommended by the urologist that you contact your urologist tomorrow for a follow-up. There is some risk of going on a trip and away from the local area has the stone that was found today on the left side is causing some swelling of the kidney. As long as the nephrostomy tube continues to drain this will most likely not get worse however there is always a chance that things do worsen over the next 24-48 hours. Return to the emergency department for any new or worsening symptoms Prescriptions: No Action latanoprost 0.005 % drops 1 drp EYE-BOTH BEDTIME 0RF lorazepam 0.5 MG tablet 0.5 mg PO PRN PRN (Reason: Anxiety) 0RF hydrocodone-acetaminophen 5-325 mg tablet 1 tab PO Q6H PRN (Reason: pain) Qty: 10 0RF amlodipine [Norvasc] 5 mg tablet 5 mg PO QPM 0RF Label Comments: patient states takes at night Xarelto 20 mg tablet 20 mg PO DAILY 0RF Referrals: Eric Grover MD [Primary Care Provider] -
--- NOTE | 2021-02-27 23:26 | DI.CT.S_ITS ---
PROCEDURE: CT ABDOMEN PELVIS WO CON INDICATIONS: CHECK NEPHROSTOMY TUBE PLACEMENT, FILLING DEFECT LEFT URETER TECHNIQUE: Noncontrast 5 mm thick sections acquired from the diaphragms to the symphysis. 5 mm coronal and sagittal reformats were then performed. For radiation dose reduction, the following was used: automated exposure control, adjustment of mA and/or kV according to patient size. COMPARISON: [facility], CT, CT CHEST ABD PEL WO CON, 09/16/2019, 10:49. [facility], CT, ABDOMEN/PELVIS WITHOUT CONTRAS, 05/11/2017, 9:01. FINDINGS: Image quality: Excellent. ABDOMEN: Lung bases: Lung bases are clear. Heart size is normal. No hiatal hernia. Solid organs: Liver is normal in size. Stable hepatic hypodensities likely representing cysts. Gallbladder is unremarkable . Pancreas is normal in contours. Spleen is normal in size. No adrenal nodules. Status post right nephrectomy. Left-sided percutaneous nephrostomy tube is in place. Pigtail catheter is present within the left renal pelvis. There is mild hydroureteronephrosis. Stable left renal cyst. There is a 0.9 x 0.7 cm partially obstructing stone noted in the mid left ureter. Contrast injected through the nephrostomy tube has passed through the left ureter and is seen within the urinary bladder. The left ureter tapers distal to the ureteral stone. There is also peripelvic stranding. There is also mild periureteral stranding involving the dilated segment of proximal left ureter. Peritoneum and bowel: Unenhanced bowel loops demonstrate normal wall thickness and caliber. No free fluid or air. Nodes and vessels: No retroperitoneal or mesenteric adenopathy by size criteria. Scattered atherosclerotic calcifications of the abdominal aorta and iliac vessels without aneurysmal dilatation. Miscellaneous: Redemonstration of large right spigelian hernia containing a segment of colon. Stable appearance of right lateral wall hernia containing a loop of nondilated small bowel. Stable appearance of right periumbilical ventral hernia containing fat and nondilated loop of small bowel. There is a large left lower quadrant peristomal hernia containing mesenteric fat and nondilated loops of small bowel. Right inguinal hernia containing segment of nondilated small bowel, unchanged. Stable postsurgical changes along the course of the right ureter. PELVIS: Genitourinary: Bladder wall thickness is normal. Miscellaneous: No pelvic adenopathy. Bones: No suspicious bony lesions. No acute vertebral body compression fractures. Stable appearance of chronic compression fracture of L5. Multilevel spondylosis of the imaged spine. IMPRESSION: 1. Partially obstructing 9 x 7 mm mid left ureteral stone with associated hydroureteronephrosis and inflammatory periureteral and peripelvic stranding. 2. Left percutaneous nephrostomy tube is appropriately positioned with the pigtail component seen within the left renal pelvis. 3. Status post right nephrectomy. 4. Multiple abdominal wall hernias appear stable. Please see above for details. 5. Stable chronic compression fracture of L5. Findings were discussed with Dr. Thomas of the emergency department at 2358 hrs. Urological consultation recommended. Dictated by: Trip Riojas M.D. on 02/27/2021 at 23:43 Approved by: Trip Riojas M.D. on 02/28/2021 at 0:01
[2021-02-28] MEDS: LIDO 1%/SOD BICARB 8.4% (10ML) 10 ML SYRINGE INJ (00:22)
[2021-02-28 00:50] VITALS: BP 150/80; PULSE 92; RESP 18; O2SAT 100
== END 2021-02-28 00:51 | disposition home or self-care (01) ==
PROVIDERS: Emergency Provider Emergency Medicine; PCP Family Medicine
DX: N99.522 Malfunction of incontinent external stoma of urinary tract (principal); N20.1 Calculus of ureter
CPT/HCPCS: 74176; 76000; 99283; 99284

== ENCOUNTER → 2021-03-07 09:14 | Outpatient (CLI) | payer MEDICARE, SELFPAY ==
--- NOTE | 2021-03-07 09:16 | DI.ECHO.S_ITS ---
[place]---------+ [facility] +---------+ : : [address] : : : : [id number] : : : : Phone: [phone]+ Echocardiogram Report + + :Name: GIFTY BLANCO Study Date: 03/07/2021 Height: 68 in : :[facility] ReadingLocation: Weight: 240 lb : : Gender: Female BSA: 2.2 m2 : :: 1940 Age: 80 yrs BP: 163/72 mmHg: :Reason For Study: Other forms of dyspnea : : Performed By: Beto Lorenz : :Referring: DI BALCK : + + Interpretation Summary The left ventricle is normal in size and wall thickness. Left ventricular systolic function appears normal without focal wall motion abnormalities. The ejection fraction is estimated to be 60-65%. Diastolic parameters suggest a relaxation abnormality of the left ventricle, consistent with probable normal filling pressures. The right ventricle is normal in size and function. The right ventricular systolic pressure is estimated to be at least 28 mmHg based on an estimated right atrial pressure of 3 mm Hg. The left atrial size is normal. Right atrial size is normal. There is no significant valvular heart disease. The aortic root is normal size. Procedure: A two-dimensional transthoracic echocardiogram with color flow and Doppler was performed. Comparison is made with the echocardiogram of 06/24/2018. Image quality technically adequate, however, aquisition was difficult due to patient remaining supine and really not being able to tolerate this procedure. The patient was in normal sinus rhythm during the exam. Left Ventricle: The left ventricle is normal in size and wall thickness. Left ventricular systolic function appears normal without focal wall motion abnormalities. The ejection fraction is estimated to be 60-65%. Diastolic parameters suggest a relaxation abnormality of the left ventricle, consistent with probable normal filling pressures. Right Ventricle: The right ventricle is normal in size and function. Atria: The left atrial size is normal. Right atrial size is normal. There is no Doppler evidence for an interatrial shunt. Mitral Valve: The mitral valve is normal. There is no mitral regurgitation noted. Aortic Valve: The aortic valve is trileaflet. The aortic valve opens well. The aortic valve is slightly calcified. There is trace aortic regurgitation. Tricuspid Valve: The tricuspid valve is normal. There is mild tricuspid regurgitation. The right ventricular systolic pressure is estimated to be at least 28 mmHg based on an estimated right atrial pressure of 3 mm Hg. Pulmonic Valve: The pulmonic valve is normal in structure and function. There is no significant valvular heart disease. Great Vessels: The aortic root is normal size. The ascending aorta is normal in size. The aortic arch is normal in size. The IVC is of normal diameter and collapses greater than 50% with a sniff. This suggests a low right atrial pressure of 3 mm Hg. Pericardium/ Pleura There is no pericardial effusion. There is an anterior echo-free space consistent with a fat pad. There is no pleural effusion. MMode/2D Measurements & Calculations LVIDd: 4.2 cm LVOT diam: 1.9 cm LVIDs: 2.5 cm Ao root diam: 3.3 cm FS: 40.7 % asc Aorta Diam: 3.1 cm IVSd: 0.92 cm Ao Arch Diam (Prox Trans): 2.5 cm LVPWd: 0.94 cm LV ulrich. diameter/BSA (cm/m^2): 1.9 LV sys. diameter/BSA (cm/m^2): 1.1 LA A2 area: 16.0 cm2 RA long axis: 5.5 cm LA A4 area: 12.9 cm2 RA area: 16.1 cm2 LA length (vol): 4.4 cm RA vol: 40.0 ml LA vol: 40.1 ml RA : 18.1 ml/m2 LA vol index: 18.2 ml/m2 IVC diam: 1.8 cm TAPSE: 2.1 cm Doppler Measurements & Calculations Ao V2 max: 162.2 cm/sec LVOT Max Luis Eduardo: 125.9 cm/sec Ao V2 mean: 118.8 cm/sec LV V1 max P.3 mmHg Ao max P.5 mmHg LV V1 VTI: 24.6 cm Ao mean P.0 mmHg MELITA(I,D): 2.2 cm2 Ao V2 VTI: 32.1 cm MELITA(V,D): 2.2 cm2 sev ratio: 0.77 MELITA indexed to BSA (cm^2/m^2): 1.0 MV E max luis eduardo: 79.7 cm/sec TR max luis eduardo: 249.0 cm/sec MV A max luis eduardo: 98.8 cm/sec TR max P.8 mmHg MV E/A: 0.81 PA V2 max: 114.4 cm/sec Med Peak E' Luis Eduardo: 6.3 cm/sec PA V2 mean: 88.4 cm/sec E/E' med: 12.7 PA mean P.3 mmHg Lat Peak E' Luis Eduardo: 8.2 cm/sec PA pr(Accel): 45.6 mmHg E/E' lat: 9.8 E/e' average: 11.2 MV dec time: 0.21 sec SV(LVOT): 71.4 ml Reading Physician:02:34 PM
== END ==
PROVIDERS: PCP Family Medicine; Referring Provider Family Medicine; Visit Provider Family Medicine
DX: I07.1 Rheumatic tricuspid insufficiency (principal); R06.09 Other forms of dyspnea
CPT/HCPCS: 93306

== ENCOUNTER → 2021-04-02 12:10 | Outpatient (CLI) | payer MEDICARE, SELFPAY ==
--- NOTE | 2021-04-02 | DI.RAD.S_ITS ---
PROCEDURE: XR CHEST 2V INDICATIONS: ACUTE COUGH TECHNIQUE: 2 views of the chest were acquired. COMPARISON: [facility], CT, CT CHEST ABD PEL WO CON, 09/16/2019, 10:49. [facility], CR, XR CHEST 2V, 05/23/2020, 10:48. FINDINGS: Surgical changes and devices: None. Lungs and pleura: Lungs are clear. Increased lung volumes present. No pleural effusions or pneumothorax. Mediastinum: Mediastinal contours are normal. Heart size is normal. Bones and chest wall: Mild chronic anterior wedging of multiple midthoracic contiguous vertebral bodies resulting in mild increased thoracic kyphosis. No suspicious bony abnormalities. Soft tissues appear unremarkable. IMPRESSION: 1. Findings suggest COPD. 2. No evidence acute pulmonary process. Dictated by: Everardo Whitehead M.D. on 04/02/2021 at 15:20 Approved by: Everardo Whitehead M.D. on 04/02/2021 at 15:22
== END ==
PROVIDERS: PCP Family Medicine; Referring Provider Family Medicine; Visit Provider Family Medicine
DX: U07.1 COVID-19 (principal); R05.1 Acute cough; R06.02 Shortness of breath
CPT/HCPCS: 71046; 87502; U0003

== ENCOUNTER → 2021-04-02 13:10 | Outpatient (ROUT) | payer MEDICARE, SELFPAY ==
[2021-04-02 13:54] LABS: Influenza A - CEPHEID Flu A NEGATIVE (NEGATIVE); Influenza B - CEPHEID Flu B NEGATIVE (NEGATIVE)
[2021-04-02 15:07] LABS: COVID19 - ADMIT (NP swab/PCR) POSITIVE (Negative)
== END ==
PROVIDERS: PCP Family Medicine; Visit Provider Family Medicine
DX: R05.9 Cough, unspecified; R06.02 Shortness of breath; U07.1 COVID-19
CPT/HCPCS: 87502; U0003

== ENCOUNTER → 2021-05-31 11:23 | Outpatient (ROUT) | payer MEDICARE, SELFPAY ==
[2021-05-31 11:31] LABS: Appearance Urine UA SL CLOUDY; Bilirubin Urine UA NEGATIVE (NEGATIVE); Color Urine UA YELLOW; Glucose Urine UA NEGATIVE (Negative); Ketones Urine UA NEGATIVE (NEGATIVE); Leukocyte Esterase Urine UA 3+ (NEGATIVE); Nitrite Urine UA POSITIVE (Negative); Occult Blood Urine UA 3+ (Negative); Protein Urine UA 3+ (Negative); Urobilinogen Urine UA 0.2 E.U./dL (0.2)
[2021-05-31 11:33] LABS: Bacteria Urine Many (>30); RBC Urine 30-100/HPF (0-5/HPF); WBC Urine 30-100/HPF (0-5/HPF)
[2021-05-31 11:34] LABS: Culture Indicated Urine Specimen Cultured
== END ==
PROVIDERS: PCP Family Medicine; Visit Provider Family Medicine
DX: N39.0 Urinary tract infection, site not specified (principal)
CPT/HCPCS: 81001; 87077; 87086; 87186

== ENCOUNTER → 2021-06-10 11:31 | Outpatient (CLI) | payer MEDICARE, SELFPAY ==
--- NOTE | 2021-06-10 | DI.US.S_ITS ---
PROCEDURE: PERIP VENOUS LOW EXTREM LT INDICATIONS: Pain in left leg TECHNIQUE: Real-time imaging, as well as color and pulse Doppler interrogation, were performed of the lower extremity deep veins from the inguinal ligament to the popliteal fossa. COMPARISON: [facility], [facility] VENOUS LOW EXTREM LT, 11/02/2019, 10:35. FINDINGS: Areas of wall thickening with intraluminal material in are seen in the common femoral, femoral, and popliteal veins, compatible with DVT. 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 Dictated by: Dung Orellana M.D. on 06/10/2021 at 12:53 Approved by: Dung Orellana M.D. on 06/10/2021 at 12:55
== END ==
PROVIDERS: PCP Family Medicine; Referring Provider Family Medicine; Visit Provider Family Medicine
DX: I82.412 Acute embolism and thrombosis of left femoral vein (principal); I82.432 Acute embolism and thrombosis of left popliteal vein; M79.605 Pain in left leg
CPT/HCPCS: 93971

== ENCOUNTER 2022-07-16 00:55 | Inpatient (IN) | payer MEDICARE, SELFPAY ==
[2022-07-16] VITALS (32 sets, daily range): BP systolic 134–184; BP diastolic 62–116; PULSE 68–100; RESP 12–22; TEMP 36.2–36.7; O2SAT 92–100; BMI 34.9; BMI 34.7
--- NOTE | 2022-07-16 | DI.RAD.S_ITS ---
PROCEDURE: [id number] W PEL IF PERFORMED INDICATIONS: LEFT ORIF TECHNIQUE: 4 intraoperative views of the left hip. [facility], 8:27. FINDINGS: Left hip ORIF. Hardware projects in the expected location. IMPRESSION: Intraoperative guidance provided. Dictated by: Arturo Mendoza M.D. on 07/16/2022 at 19:35 Approved by: Arturo Mendoza M.D. on 07/16/2022 at 19:36
--- NOTE | 2022-07-16 01:07 | DI.RAD.S_ITS ---
PROCEDURE: XR HIP W PEL IF DONE LT 2V INDICATIONS: fall with pain in left hip TECHNIQUE: 2 views of the hip were acquired. COMPARISON: [facility], , HIP 2V LEFT, 02/20/2015, 8:27. FINDINGS: Bones: Bilateral degenerative changes, mild. Angulated fracture of the left trochanteric region of the femur. Soft tissues: Vascular calcifications. Surgical clips. IMPRESSION: Trochanteric femur fracture, moderately angulated. Dictated by: Anton Morrell M.D. on 07/16/2022 at 1:26 Approved by: Anton Morrell M.D. on 07/16/2022 at 1:28
[2022-07-16] MEDS: MORPHINE 2 MG/ML INJ IV (01:36)
--- NOTE | 2022-07-16 01:47 | DI.RAD.S_ITS ---
PROCEDURE: XR KNEE LT 1TO2V INDICATIONS: fall with hip and knee pain TECHNIQUE: 2 views of the knee were acquired. COMPARISON: [facility], , KNEE 3V LEFT, 11/13/2015, 11:45. [facility], , KNEE 3V LEFT, 10/04/2012, 8:48. FINDINGS: Bones: Moderate degenerative changes. This particularly involves medial compartment. No displaced fracture or dislocation. Soft tissues: Vascular calcifications. Small knee joint effusion. There also scattered dystrophic calcifications. IMPRESSION: No acute radiographic abnormality. Moderate degenerative changes. Small knee joint effusion. If there is high concern for further derangement, consider MRI evaluation. Dictated by: Anton Morrell M.D. on 07/16/2022 at 2:01 Approved by: Anton Morrell M.D. on 07/16/2022 at 2:02
[2022-07-16 01:56] LABS: Add Manual Diff / Slide Review NO; Basophils Absolute Auto 0 /uL (0-100); Basophils Percent Auto 0.2 % (0-2); Eosinophils Absolute Auto 100 /uL (0-450); Eosinophils Percent Auto 2.1 % (2-4); Hematocrit 32.4 % (36-46); Hemoglobin 10.4 g/dL (12.0-16.0); Lymphocytes Absolute Auto 400 /uL (1100-4500); Lymphocytes Percent Auto 8.7 % (25-40); Mean Corpuscular HGB Conc 32.1 % (30-36); Mean Corpuscular Hemoglobin 24.9 PG (26-34); Mean Corpuscular Volume 77.7 fL (80-100); Monocytes Absolute Auto 700 /uL (0-900); Neutrophils Absolute Auto 3900 /uL (1500-7000); Platelet Count 260 X10^3/uL (150-400); Red Blood Cell Count 4.18 X10^6/uL (4.0-5.2); Red Cell Distribution Width 18.7 % (11.6-14.8); White Blood Cell Count 5.2 X10^3/uL (4.5-11.0)
[2022-07-16 01:57] LABS: INR 1.2 (0.9-1.3); Prothrombin Time 13.8 SECONDS (10.1-12.7)
[2022-07-16 02:00] LABS: PTT Partial Thromboplastin Tim 27 SECONDS (26-36)
[2022-07-16 02:01] LABS: Alanine Aminotransferase 12 IU/L (<35); Albumin 3.4 g/dL (3.5-5.0); Albumin Globulin Ratio 0.9 (1.0-2.8); Alkaline Phosphatase 102 U/L (38-126); Aspartate Aminotransferase 14 IU/L (14-36); BUN Creatinine Ratio 14.5 (6-22); Bilirubin Total 0.7 mg/dL (0.2-1.3); Blood Urea Nitrogen 27 mg/dL (7-17); Carbon Dioxide 20 mmol/L (22-32); Chloride 112 mmol/L (98-107); Estimated Glomerular Filt Rate 27 mL/min (>60); Globulin 3.9 g/dL (1.7-4.1); Glucose 122 mg/dL (80-110); HEMOLYSIS 27 (0-50); Potassium 4.4 mmol/L (3.4-5.1); Sodium 138 mmol/L (137-145); Total Protein 7.3 g/dL (6.3-8.2)
[2022-07-16] MEDS: HYDROMORPHONE 1 MG INJ IV ×4 (02:30→08:30)
--- NOTE | 2022-07-16 02:48 | ED.LOWEXIN ---
HPI - Extremity Injury (Lower) General Chief Complaint: Extremity Injury, Lower Stated Complaint: GLF, L hip Time Seen by Provider: 07/16/22 01:25 Source: patient and EMS Mode of arrival: EMS History of Present Illness HPI Narrative: Patient is an 82-year-old female with history of rectal cancer status post LAR and chemo with WOODY, left-sided nephrostomy tube secondary to multiple UTIs, DVT and PE, atrial fibrillation on Eliquis presents today with left hip pain. She says she was wearing slippers when her legs started sliding apart she was doing the splits and landed on her left hip. She denies hitting her head losing conscious nausea or vomiting. She does report that she woke up today and was having significant amounts of diarrhea and vomiting she tried to keep water down. She is in quite a bit of pain mostly in her left hip. However she also reports that she has a bad left knee. Related Data Home Medications Medication Instructions Recorded Confirmed latanoprost 0.005 % eye drops 1 drp EYE-BOTH BEDTIME 02/09/18 05/06/22 lorazepam 0.5 mg tablet 0.5 mg PO PRN PRN Anxiety 02/09/18 05/06/22 amlodipine 5 mg tablet (Norvasc) 5 mg PO QPM 03/29/18 05/06/22 apixaban 2.5 mg tablet (Eliquis) 2.5 mg PO BID 05/06/22 05/06/22 metoprolol tartrate 25 mg tablet 12.5 mg PO BID 05/06/22 05/06/22 Allergies Allergy/AdvReac Type Severity Reaction Status Date / Time cashew nut Allergy Severe Anaphylaxis Verified 02/27/21 16:45 ciprofloxacin [CIPROFLOXACIN] Allergy Intermediate HIVES UP Verified 02/27/21 16:45 ARM RIGHT AFTER IV DOSE STARTED nitrofurantoin Allergy Intermediate rash, Verified 02/27/21 16:45 [From MACRODANTIN] itching Review of Systems Review of Systems ROS Unobtainable: All systems reviewed & are unremarkable except as noted in HPI and below Patient History Medical History (Updated 07/16/22 @ 02:55 by Mattie Tai DO) 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 Easy bruisability History of pulmonary embolus (PE) Incontinence Leg swelling Lumbar hernia Neuropathy Port-A-Cath in place Rectal cancer Rectal carcinoma Retained urethral stent S/p nephrectomy Surgical History History of low anterior resection of rectum Family History Mother Hypertension Cancer Son Hypertension Grandfather Heart disease Social History household members: family lives independently: Yes Smoking Status: Current some day smoker Tobacco: How many years used: 60 alcohol intake: current substance use type: does not use Smoking Status: Current some day smoker alcohol intake frequency: holidays/special occasions only Substance Use Type: marijuana Exam Initial Vital Signs Initial Vital Signs: Vital Signs Pulse Rate 99 H 07/16/22 01:03 Pulse Oximetry 98 07/16/22 01:03 GENERAL: Alert pleasant well-appearing 82-year-old female appears uncomfortable HEENT: Head atraumatic,EOMI, pupils reactive, face symmetric, [moist] mucous membranes, neck is nontender CARDIOVASCULAR: Regular rate and rhythm without murmurs, rubs or gallops. RESPIRATORY: Breath sounds equal bilaterally, no wheezes rales or rhonchi. ABDOMEN: Soft, nontender. Normoactive bowel sounds all 4 quadrants. No guarding or rebound. EXTREMITIES: Normal range of motion, no clubbing or edema. Neurovascularly intact Left leg distal pedal pulse intact quite tender to palpation like in position of comfort. NEUROLOGICAL: Alert and oriented x4. SKIN: Warm, dry, no laceration, no petechiae, no rashes or lesions. Course Orders Ordered: ED Orders 07/16/22 01:07 XR hip w pel if done LT 2V Stat 07/16/22 01:25 EKG-12 Lead Stat 07/16/22 01:45 CBC Auto Diff [Complete Blood Count AUTO DIFF] Stat CMP [Comprehensive Metabolic Panel] Stat PT [Prothrombin Time INR] Stat PTT Partial Thromboplastin Damián Stat 07/16/22 01:47 XR knee LT 1to2V Stat 07/16/22 03:15 COVID19 -Nasal RAPID Stat 07/16/22 03:26 Consult to Orthopedic Surgery Urgent Acetaminophen (Acetaminophen 325 Mg Tablet) 650 mg PO Q6HR PRN PRN Reason: Fever/Mild Pain (1-3) Hydromorphone HCl (Hydromorphone 1 Mg Inj) 1 mg IV Q2H PRN PRN Reason: Pain, Moderate (4-6) Last Admin: 07/16/22 04:35 Dose: 1 mg Documented By: EPI Sodium Chloride (Normal Saline 0.9%) 1,000 mls @ 125 mls/hr IV CONT GEO Last Admin: 07/16/22 04:37 Dose: 125 mls/hr Documented By: EPI Metoprolol Tartrate (Metoprolol Ir 25 Mg Tablet) 12.5 mg PO BID GEO Ondansetron HCl (Ondansetron 4 Mg/2 Ml Inj) 4 mg IV Q4HR PRN PRN Reason: Nausea And Vomiting Discontinued Medications Hydromorphone HCl (Hydromorphone 0.5 Mg Inj) 0.5 mg IV NOW ONE Stop: 07/16/22 02:14 Last Admin: 07/16/22 02:54 Dose: Not Given Documented By: SOUTH Hydromorphone HCl (Hydromorphone 1 Mg Inj) 1 mg IV NOW ONE Stop: 07/16/22 02:28 Last Admin: 07/16/22 02:30 Dose: 1 mg Documented By: DMITRIY Hydromorphone HCl (Hydromorphone 1 Mg Inj) 1 mg IV Q4H PRN PRN Reason: Pain, Moderate (4-6) Sodium Chloride (Normal Saline 0.9%) 1,000 mls @ 1,000 mls/hr IV BOLUS ONE Stop: 07/16/22 03:54 Last Infusion: 07/16/22 03:33 Dose: 1,000 mls/hr Documented By: Admin: 07/16/22 03:15 Dose: 1,000 mls/hr Documented By: SOUTH Morphine Sulfate (Morphine 2 Mg/Ml Inj) 2 mg IV NOW ONE Stop: 07/16/22 01:33 Last Admin: 07/16/22 01:36 Dose: 2 mg Documented By: SOUTH Vital Signs Vital signs: Vital Signs - 8 hr 07/16/22 01:08 07/16/22 01:03 07/16/22 01:04 Temperature 97.3 F L Pulse Rate 100 H 99 H Respiratory Rate 15 Blood Pressure 162/64 H 162/64 H Pulse Oximetry 98 98 Oxygen Delivery Method Room Air 07/16/22 01:04 07/16/22 01:30 07/16/22 01:31 Temperature Pulse Rate 99 H 84 Respiratory Rate Blood Pressure 134/73 Pulse Oximetry 99 98 Oxygen Delivery Method Room Air 07/16/22 01:31 07/16/22 02:00 07/16/22 02:01 Temperature Pulse Rate 93 H 88 86 Respiratory Rate Blood Pressure Pulse Oximetry 99 99 97 Oxygen Delivery Method 07/16/22 02:01 07/16/22 02:30 07/16/22 02:30 Temperature Pulse Rate 88 Respiratory Rate Blood Pressure 157/70 H 158/116 H Pulse Oximetry 100 Oxygen Delivery Method 07/16/22 02:32 07/16/22 02:32 07/16/22 03:00 Temperature Pulse Rate 91 H Respiratory Rate Blood Pressure 150/70 H 158/70 H Pulse Oximetry 98 Oxygen Delivery Method Room Air 07/16/22 03:00 Temperature Pulse Rate 90 Respiratory Rate Blood Pressure Pulse Oximetry 94 Oxygen Delivery Method MDM - Extremity Injury (Lower) Lab Data 07/16/22 01:45 07/16/22 01:45 Labs: Lab Results 07/16/22 07/16/22 07/16/22 Range/Units 01:45 01:45 01:45 WBC 5.2 (4.5-11.0) X10^3/uL RBC 4.18 (4.0-5.2) X10^6/uL Hgb 10.4 L (12.0-16.0) g/dL Hct 32.4 L (36-46) % MCV 77.7 L (80-100) fL MCH 24.9 L (26-34) PG MCHC 32.1 (30-36) % RDW 18.7 H (11.6-14.8) % Plt Count 260 (150-400) X10^3/uL Neut % (Auto) 75.0 (50-75) % Lymph % (Auto) 8.7 L (25-40) % [place] % (Auto) 14.0 (3-14) % Eos % (Auto) 2.1 (2-4) % Baso % (Auto) 0.2 (0-2) % Neut # (Auto) 3900 (0195-2710) /uL Lymph # (Auto) 400 L (6193-8160) /uL [place] # (Auto) 700 (0-900) /uL Eos # (Auto) 100 (0-450) /uL Baso # (Auto) 0 (0-100) /uL PT 13.8 H (10.1-12.7) SECONDS INR 1.2 (0.9-1.3) APTT 27 (26-36) SECONDS Sodium 138 (137-145) mmol/L Potassium 4.4 (3.4-5.1) mmol/L Chloride 112 H (98-107) mmol/L Carbon Dioxide 20 L (22-32) mmol/L BUN 27 H (7-17) mg/dL Creatinine 1.86 H (0.52-1.04) mg/dL Estimated GFR 27 L (>60) mL/min BUN/Creatinine Ratio 14.5 (6-22) Glucose 122 H (80-110) mg/dL Calcium 9.0 (8.4-10.2) mg/dL Total Bilirubin 0.7 (0.2-1.3) mg/dL AST 14 (14-36) IU/L ALT 12 (<35) IU/L Alkaline Phosphatase 102 (38-126) U/L Total Protein 7.3 (6.3-8.2) g/dL Albumin 3.4 L (3.5-5.0) g/dL Globulin 3.9 (1.7-4.1) g/dL Albumin/Globulin Ratio 0.9 L (1.0-2.8) Imaging Data Extremity x-ray #1: Radiologist's Impression: PROCEDURE:? XR HIP W PEL IF DONE LT 2V ? INDICATIONS:? fall with pain in left hip ? TECHNIQUE:? 2 views of the hip were acquired.? ? COMPARISON:? [facility], , HIP 2V LEFT, 02/20/2015, 8:27. ? FINDINGS:? ? Bones:? Bilateral degenerative changes, mild.? Angulated fracture of the left trochanteric region of the femur. ? Soft tissues:? Vascular calcifications.? Surgical clips. ? IMPRESSION:? Trochanteric femur fracture, moderately angulated. ? ? Dictated by: Anton Morrell M.D. on 07/16/2022 at 1:26 ? ? Approved by: Anton Morrell M.D. on 07/16/2022 at 1:28 ? Extremity x-ray #2: Radiologist's Impression: PROCEDURE:? XR KNEE LT 1TO2V ? INDICATIONS:? fall with hip and knee pain ? TECHNIQUE:? 2 views of the knee were acquired.? ? COMPARISON:? [facility], CR, KNEE 3V LEFT, 11/13/2015, 11:45.? [facility], CR, KNEE 3V LEFT, 10/04/2012, 8:48. ? FINDINGS:? ? Bones:? Moderate degenerative changes.? This particularly involves medial compartment.? No displaced fracture or dislocation. ? Soft tissues:? Vascular calcifications.? Small knee joint effusion.? There also scattered dystrophic calcifications. ? ? IMPRESSION:? No acute radiographic abnormality.? Moderate degenerative changes.? Small knee joint effusion.? If there is high concern for further derangement, consider MRI evaluation. ? ? Dictated by: Anton Morrell M.D. on 07/16/2022 at 2:01 ?? ECG Data Interpretation: Normal sinus rhythm rate 80 UT interval 172 QRS [address] changes no T-wave inversions MDM Narrative Medical decision making narrative: Patient 82-year-old female multiple medical comorbidities including DVTs, pulmonary embolism, atrial fibrillation anticoagulated on Eliquis, nephrostomy tube and remote history of rectal cancer presents today after mechanical fall on her left hip. Her x-ray confirms femoral neck fracture. She is also been having some nausea vomiting diarrhea today. She denies any abdominal pain. There are hernias around her colostomy which she states is chronic. Blood work does show mild dehydration, but creatinine is elevated at 1.86 previously 1.44. She denies Fever chills. No hypotension or tachycardia. No evidence of sepsis. She is given some IV fluids. She is confident that she did not hit head nor is there evidence on exam of trauma no head CT is done. Dr. Guillen notified of hip fracture Dr. Zheng accepts patient Discharge Plan Departure Patient Disposition: Admitted As Inpatient Clinical Impression: Closed fracture of left hip Admit Date/Time: 07/16/22 03:13 Admit Provider: Mike Zheng
[2022-07-16] MEDS: SODIUM CHLORIDE 0.9% 1,000 ML 1000 ML IV (03:15)
[2022-07-16 03:30] LABS: COVID19 -Nasal RAPID Negative (Negative)
--- NOTE | 2022-07-16 04:30 | PC.NURSE ---
Patient arrived to floor around 0330. Pt A&OX4, lungs clear on room air. Pt has left nephrostomy and left colostomy, but otherwise, skin is intact. Pt in significant amount of pain. MD certification officer notified. Ordered change for pain medication frequency.
[2022-07-16] MEDS: SODIUM CHLORIDE 0.9% 1,000 ML 125 ML IV (04:37)
[2022-07-16 05:12] LABS: MRSA (Nasal) PCR DETECTED (Not Detect)
--- NOTE | 2022-07-16 08:22 | PM.CN ---
History of Present Illness Consult details Date Patient Seen: 07/16/22 Time Patient Seen: 08:00 Chief complaint: GLF, L hip Reason for consult: Left intertrochanteric femur fracture Narrative: Sherlyn is an 82-year-old woman with multiple underlying medical problems who suffered a ground level fall last night sustaining an injury to her left hip. She was unable to walk afterwards and was evaluated at the emergency department where radiographs revealed a displaced intertrochanteric femoral fracture on the left. She is on Eliquis at baseline however was feeling quite ill yesterday and did not take any of her medications. Meds Home Medications and Allergies Home Medications Medication Instructions Recorded Confirmed Type latanoprost 0.005 % eye drops 1 drp EYE-BOTH BEDTIME 02/09/18 05/06/22 History lorazepam 0.5 mg tablet 0.5 mg PO PRN PRN Anxiety 02/09/18 05/06/22 History amlodipine 5 mg tablet (Norvasc) 5 mg PO QPM 03/29/18 05/06/22 History apixaban 2.5 mg tablet (Eliquis) 2.5 mg PO BID 05/06/22 05/06/22 History metoprolol tartrate 25 mg tablet 12.5 mg PO BID 05/06/22 05/06/22 History Allergies Allergy/AdvReac Type Severity Reaction Status Date / Time cashew nut Allergy Severe Anaphylaxis Verified 02/27/21 16:45 ciprofloxacin [CIPROFLOXACIN] Allergy Intermediate HIVES UP Verified 02/27/21 16:45 ARM RIGHT AFTER IV DOSE STARTED nitrofurantoin Allergy Intermediate rash, Verified 02/27/21 16:45 [From MACRODANTIN] itching Review of Systems Review of Systems Narrative: The patient reports that she was feeling quite ill yesterday with nausea and difficulty keeping down oral food. She did not take medications as a result. Exam Vital Signs (past 8 hours): - 07/16/22 01:08 07/16/22 01:03 07/16/22 01:04 Temperature 97.3 F L Pulse Rate 100 H 99 H Respiratory Rate 15 Blood Pressure 162/64 H 162/64 H Pulse Oximetry 98 98 Oxygen Delivery Method Room Air 07/16/22 01:04 07/16/22 01:30 07/16/22 01:31 Temperature Pulse Rate 99 H 84 Respiratory Rate Blood Pressure 134/73 Pulse Oximetry 99 98 Oxygen Delivery Method Room Air 07/16/22 01:31 07/16/22 02:00 07/16/22 02:01 Temperature Pulse Rate 93 H 88 86 Respiratory Rate Blood Pressure Pulse Oximetry 99 99 97 Oxygen Delivery Method 07/16/22 02:01 07/16/22 02:30 07/16/22 02:30 Temperature Pulse Rate 88 Respiratory Rate Blood Pressure 157/70 H 158/116 H Pulse Oximetry 100 Oxygen Delivery Method 07/16/22 02:32 07/16/22 02:32 07/16/22 03:00 Temperature Pulse Rate 91 H Respiratory Rate Blood Pressure 150/70 H 158/70 H Pulse Oximetry 98 Oxygen Delivery Method Room Air 07/16/22 03:00 07/16/22 03:30 07/16/22 03:40 Temperature 97.4 F L Pulse Rate 90 86 Respiratory Rate 22 Blood Pressure 184/76 H Pulse Oximetry 94 98 Oxygen Delivery Method Room Air 07/16/22 06:24 Temperature Pulse Rate Respiratory Rate Blood Pressure 151/82 H Pulse Oximetry Oxygen Delivery Method Oxygen Delivery Method Room Air Radiographs reveal a displaced proximal femoral fracture in an intertrochanteric position on the left. Narrative Exam Narrative: The patient is examined while lying in her intensive care unit bed. She is occasionally experiencing muscle spasms but is relatively comfortable between the spasms. The left lower extremity has intact skin in the site of the proposed incision. Her leg is flexed and externally rotated and shortened. She has a soft calf and intact light touch and motion in the left foot. Objective Labs 07/16/22 01:45 07/16/22 01:45 Labs: Laboratory Results - last 24 hr 07/16/22 07/16/22 07/16/22 01:45 01:45 01:45 WBC 5.2 RBC 4.18 Hgb 10.4 L Hct 32.4 L MCV 77.7 L MCH 24.9 L MCHC 32.1 RDW 18.7 H Plt Count 260 Neut % (Auto) 75.0 Lymph % (Auto) 8.[address] [place] % (Auto) 14.0 Eos % (Auto) 2.1 Baso % (Auto) 0.2 Neut # (Auto) 3900 Lymph # (Auto) [address] [place] # (Auto) 700 Eos # (Auto) 100 Baso # (Auto) 0 PT 13.8 H INR 1.2 APTT 27 Sodium 138 Potassium 4.4 Chloride 112 H Carbon Dioxide 20 L BUN 27 H Creatinine 1.86 H Estimated GFR 27 L BUN/Creatinine Ratio 14.5 Glucose 122 H Calcium 9.0 Total Bilirubin 0.7 AST 14 ALT 12 Alkaline Phosphatase 102 Total Protein 7.3 Albumin 3.4 L Globulin 3.9 Albumin/Globulin Ratio 0.9 L Nasal Screen MRSA (PCR) SARS-CoV-2 (PCR) 07/16/22 07/16/22 03:15 03:45 WBC RBC Hgb Hct MCV MCH MCHC RDW Plt Count Neut % (Auto) Lymph % (Auto) [place] % (Auto) Eos % (Auto) Baso % (Auto) Neut # (Auto) Lymph # (Auto) 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 Easy bruisability History of pulmonary embolus (PE) Incontinence Leg swelling Lumbar hernia Neuropathy Port-A-Cath in place Rectal cancer Rectal carcinoma Retained urethral stent S/p nephrectomy Surgical History History of low anterior resection of rectum Family History Mother Hypertension Cancer Son Hypertension Grandfather Heart disease Social History household members: family lives independently: Yes Tobacco & Substance Use Smoking Status: Current some day smoker Tobacco: How many years used: 60 alcohol intake: current substance use type: does not use Assessment & Plan Assessment & Plan narrative: She has a displaced intertrochanteric femoral fracture. This would best be treated with internal fixation either with a dynamic hip screw or an intramedullary hip screw. She is anticoagulated at baseline but did not take her Eliquis yesterday. She should be amenable to surgery later this afternoon provided the medical service does not feel a need additional time to stabilize her for surgery. We will tentatively add her to the end of today's operating schedule for a dynamic hip screw. The risks benefits and alternatives were discussed with the patient. Risks discussed included but were not limited to: Failure to improve function or pain, failure of the hardware to hold the fracture in place, need for revision, infection, nerve damage, blood loss requiring transfusion, deep venous thrombosis, pulmonary embolism, stroke, myocardial infarction, permanent paralysis and . COVID-19 COVID-19 status: Negative Result date/Date tested (Pos, Neg/Pending): 07/16/22
[2022-07-16] MEDS: METOPROLOL IR 25 MG TABLET 12.5 MG PO ×2 (08:31→21:10)
[2022-07-16 10:06] LABS: Add Manual Diff / Slide Review NO; Basophils Absolute Auto 0 /uL (0-100); Basophils Percent Auto 0.4 % (0-2); Eosinophils Absolute Auto 100 /uL (0-450); Eosinophils Percent Auto 2.2 % (2-4); Hematocrit 27.3 % (36-46); Hemoglobin 8.8 g/dL (12.0-16.0); Lymphocytes Absolute Auto 800 /uL (1100-4500); Lymphocytes Percent Auto 20.2 % (25-40); Mean Corpuscular HGB Conc 32.1 % (30-36); Mean Corpuscular Hemoglobin 25.2 PG (26-34); Mean Corpuscular Volume 78.4 fL (80-100); Monocytes Absolute Auto 700 /uL (0-900); Monocytes Percent Auto 15.7 % (3-14); Neutrophils Absolute Auto 2600 /uL (1500-7000); Neutrophils Percent Auto 61.5 % (50-75); Platelet Count 207 X10^3/uL (150-400); Red Blood Cell Count 3.48 X10^6/uL (4.0-5.2); Red Cell Distribution Width 18.5 % (11.6-14.8); White Blood Cell Count 4.2 X10^3/uL (4.5-11.0)
[2022-07-16 10:18] LABS: Alanine Aminotransferase 10 IU/L (<35); Albumin Globulin Ratio 0.9 (1.0-2.8); Alkaline Phosphatase 86 U/L (38-126); Aspartate Aminotransferase 16 IU/L (14-36); BUN Creatinine Ratio 14.6 (6-22); Bilirubin Total 0.4 mg/dL (0.2-1.3); Blood Urea Nitrogen 23 mg/dL (7-17); Calcium 8.3 mg/dL (8.4-10.2); Carbon Dioxide 19 mmol/L (22-32); Chloride 114 mmol/L (98-107); Estimated Glomerular Filt Rate 33 mL/min (>60); Globulin 3.4 g/dL (1.7-4.1); Glucose 104 mg/dL (80-110); HEMOLYSIS < 15 (0-50); Potassium 4.4 mmol/L (3.4-5.1); Sodium 139 mmol/L (137-145); Total Protein 6.4 g/dL (6.3-8.2)
[2022-07-16] MEDS: HYDROMORPHONE 2 MG INJ IV ×2 (10:36→13:43)
[2022-07-16] MEDS: SODIUM CHLORIDE 0.9% 1,000 ML 100 ML IV ×2 (10:36→13:43)
[2022-07-16] MEDS: MUPIROCIN 22 GM OINT 1 APPLIC TOP (11:09)
--- NOTE | 2022-07-16 13:11 | PM.HP.1 ---
History of Present Illness History of Present Illness Date Patient Seen: 07/16/22 Time Patient Seen: 13:11 Date of Onset of Symptoms: 07/15/22 Chief complaint: GLF, L hip Narrative: Patient is an 82-year-old female well known to me who presents with pain in her right hip. Patient apparently was having a difficult day yesterday with nausea vomiting and diarrhea. She was just feeling shaky and not feeling well. She was at the end of the day around 10:30 p.m. with the last time she had diarrhea in her stoma and she was emptying that when she slipped to doing the splits. She immediately heard a crack in her left leg and had immediate pain. No one is in the house at this time. She had did not have her phone and she laid for 2 hours on the ground until her son got home from his schedule. She is had no other significant change. She is feeling much better. No abdominal pain. No urinary symptoms. Has had a history of recurrent UTIs. She is having no diarrhea at this time. She is had no chest pain shortness to breath nor any arrhythmias. She feels like her AFib has been in good control. No other change. Otherwise feeling well. 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 Easy bruisability History of pulmonary embolus (PE) Incontinence Leg swelling Lumbar hernia Neuropathy Port-A-Cath in place Rectal cancer Rectal carcinoma Retained urethral stent S/p nephrectomy Surgical History History of low anterior resection of rectum Family History Mother Hypertension Cancer Son Hypertension Grandfather Heart disease Social History household members: family lives independently: Yes Smoking Status: Current some day smoker Tobacco: How many years used: 60 alcohol intake: current substance use type: does not use Meds Home Medications and Allergies Home Medications Medication Instructions Recorded Confirmed Type latanoprost 0.005 % eye drops 1 drp EYE-BOTH BEDTIME 02/09/18 07/16/22 History lorazepam 0.5 mg tablet 0.5 mg PO PRN PRN Anxiety 02/09/18 05/06/22 History amlodipine 5 mg tablet (Norvasc) 5 mg PO QPM 03/29/18 07/16/22 History apixaban 2.5 mg tablet (Eliquis) 2.5 mg PO BID 05/06/22 07/16/22 History metoprolol tartrate 25 mg tablet 12.5 mg PO BID 05/06/22 07/16/22 History Allergies Allergy/AdvReac Type Severity Reaction Status Date / Time cashew nut Allergy Severe Anaphylaxis Verified 02/27/21 16:45 ciprofloxacin [CIPROFLOXACIN] Allergy Intermediate HIVES UP Verified 02/27/21 16:45 ARM RIGHT AFTER IV DOSE STARTED nitrofurantoin Allergy Intermediate rash, Verified 02/27/21 16:45 [From MACRODANTIN] itching Review of Systems Review of Systems Narrative: Please see H&P Exam Vital Signs (past 8 hours): - 07/16/22 06:24 07/16/22 08:24 Temperature 97.6 F Pulse Rate 82 Respiratory Rate 18 Blood Pressure 151/82 H 164/71 H Pulse Oximetry 98 Oxygen Flow Rate 0 Oxygen Delivery Method Room Air Oxygen Flow Rate 0 Narrative Exam Narrative: Alert female in no acute distress lying in bed. Lungs are clear heart is regular rate and rhythm well-controlled rate abdomen is benign with large hernia left side and ostomy in place. Back shows ostomy urostomy in place. Extremities without other change. Objective Labs 07/16/22 09:50 07/16/22 09:50 Labs: Laboratory Results - last 24 hr 07/16/22 07/16/22 07/16/22 01:45 01:45 01:45 WBC 5.2 RBC 4.18 Hgb 10.4 L Hct 32.4 L MCV 77.7 L MCH 24.9 L MCHC 32.1 RDW 18.7 H Plt Count 260 Neut % (Auto) 75.0 Lymph % (Auto) 8.7 L [place] % (Auto) 14.0 Eos % (Auto) 2.1 Baso % (Auto) 0.2 Neut # (Auto) 3900 Lymph # (Auto) 400 L [place] # (Auto) 700 Eos # (Auto) 100 Baso # (Auto) 0 PT 13.8 H INR 1.2 APTT 27 Sodium 138 Potassium 4.4 Chloride 112 H Carbon Dioxide 20 L BUN 27 H Creatinine 1.86 H Estimated GFR 27 L BUN/Creatinine Ratio 14.5 Glucose 122 H Calcium 9.0 Total Bilirubin 0.7 AST 14 ALT 12 Alkaline Phosphatase 102 Total Protein 7.3 Albumin 3.4 L Globulin 3.9 Albumin/Globulin Ratio 0.9 L Nasal Screen MRSA (PCR) SARS-CoV-2 (PCR) 07/16/22 07/16/22 07/16/22 03:15 03:45 09:50 WBC 4.2 L RBC 3.48 L Hgb 8.8 L Hct 27.3 L MCV 78.4 L MCH 25.2 L MCHC 32.1 RDW 18.5 H Plt Count 207 Neut % (Auto) 61.5 Lymph % (Auto) 20.2 L [place] % (Auto) 15.7 H Eos % (Auto) 2.2 Baso % (Auto) 0.4 Neut # (Auto) 2600 Lymph # (Auto) 800 L [place] # (Auto) 700 Eos # (Auto) 100 Baso # (Auto) 0 PT INR APTT Sodium Potassium Chloride Carbon Dioxide BUN Creatinine Estimated GFR BUN/Creatinine Ratio Glucose Calcium Total Bilirubin AST ALT Alkaline Phosphatase Total Protein Albumin Globulin Albumin/Globulin Ratio Nasal Screen MRSA (PCR) Detected H SARS-CoV-2 (PCR) Negative 07/16/22 09:50 WBC RBC Hgb Hct MCV MCH MCHC RDW Plt Count Neut % (Auto) Lymph % (Auto) [place] % (Auto) Eos % (Auto) Baso % (Auto) Neut # (Auto) Lymph # (Auto) [place] # (Auto) Eos # (Auto) Baso # (Auto) PT INR APTT Sodium 139 Potassium 4.4 Chloride 114 H Carbon Dioxide 19 L BUN 23 H Creatinine 1.58 H Estimated GFR 33 L BUN/Creatinine Ratio 14.6 Glucose 104 Calcium 8.3 L Total Bilirubin 0.4 AST 16 ALT 10 Alkaline Phosphatase 86 Total Protein 6.4 Albumin 3.0 L Globulin 3.4 Albumin/Globulin Ratio 0.9 L Nasal Screen MRSA (PCR) SARS-CoV-2 (PCR) Assessment & Plan Assessment & Plan narrative: Left hip fracture as per Dr. Guillen. Will be repaired today. Cardiopulmonary appears to be at least stable at this time. Not sure what the illness was yesterday but she does not seem to have any issue right now. Certainly has [id number] risk at baseline. Do not think we have any other options patient understands and desires repair so will set up. Fall ground level. No evidence of significant pathology other than slipping. Will follow. COPD. Stable at this time. History atrial fibrillation. Stable. Has been on anticoagulation. Will resume after surgery. History of DVT with pulmonary embolism. Unprovoked. Patient will be on lifelong anticoagulation. Currently off until surgery will be restarted as soon as possible or at least full-dose Lovenox started depending on surgeon's preference. Chronic renal failure. Stable actually looks pretty good today. Hypertension. Numbers looks good will follow. Usual meds. Large left lower abdomen wall hernia. With colostomy. All secondary to previous rectal surgery for rectal cancer which appears to be stable no changes at this time. Left ureteral stricture with urostomy. Patient is in process of seeing if she can get this repaired and get rid of your ostomy. There is some chance that she will have both that surgery and hernia surgery in the near future but will have to see how things go now. Has been put on hold. Depression stable on no meds. Esophageal reflux. Will continue IV pro been pro resolved. Code status full. DVT prophylaxis will be back on her anticoagulation. Disposition. Will probably be here 2-3 days. Will most likely need some help either home health or sniff. She understands questions answered. Greater than 50 minutes spent with patient nursing discussing with social service crosscover notes and orders Quality VTE Deep Vein Thrombosis/Pulmonary Embolism Present on Admission: No
[2022-07-16] MEDS: ONDANSETRON 4 MG/2 ML INJ IV (13:43)
--- NOTE | 2022-07-16 13:44 | CM.DANOTE ---
Initial DCP Assessment Note Pt is an 82 yo female, resident of [place], arrives after a fall at home and subsequent hip injury, requiring hip repair. Patient scheduled for the OR this afternoon w/Dr Guillen PCP: Eric Grover Payer: HARLAN/LEONARD Reviewed chart, met w/patient briefly this morning, introduced self and role. 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 Patient completes most ADLs indp, has [facility] to assist w/colostomy management Patient adamant today about her return home w/son and two grand dtrs to assist her. Suggested further discussion re dispo options once through surgery and after working w/PT/OT - patient states understanding and agreement THERESE Mas Discharge Planning/Care Management CM Discharge Assessment Start: 07/16/22 13:36 Navjotq: Status: Active Protocol: Document 07/16/22 13:36 JANI (Rec: 07/16/22 13:44 JANI [id number]) Discharge Planning Assessment Assigned Registered Associate THERESE Martins DPOA/Assigned Designee Name balaji Hammond Contact Information [phone] or [phone] Advance Directives? Yes Advance Directives on File No History Provided By Patient,Medical Record Prior Living Arrangements House Household Members family Type of transporation used prior to Relies on Others admit Independent with ADL's Yes Is patient alert and oriented? 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 Patient hopeful to return home however may need SNF for recovery from hip repair Transportation Arrangement TBD Additional Comment Awaiting surgery and therapy evals/recommendations
--- NOTE | 2022-07-16 14:14 | PC.NURSE ---
Gave telephone report to FLAVIO Campbell in OR. Emptied 425mL of dark yellow urine from nephrostomy tube; Flushed nephrostomy tube with 10mL sterile normal saline. Patient's son and granddaughter at bedside when FLAVIO Abdalla came to take patient down to OR.
[2022-07-16] MEDS: TRANEXAMIC ACID 1,000 MG in SODIUM CHLORIDE 0.9% 100 ML 200 MG IV ×2 (16:12→17:25)
[2022-07-16] MEDS: CEFAZOLIN 2 GM/100 ML PREMIX 100 ML IV (16:12)
--- NOTE | 2022-07-16 16:53 | SUR.OPER ---
Patient supine on padded [place] table, one arm on padded arm board at <90, other arm padded and secured with tape across patient's chest, both legs secured in padded traction boots and positioned per surgeon, padded post at patient's groin, pressure points checked and padded.
[2022-07-16] MEDS: BUPIVACAINE 0.5% (PF) 30 ML, EPINEPHrine 0.15 MG INJ (17:02)
[2022-07-16] MEDS: LACTATED RINGERS 1,000 ML 42 ML IV (17:14)
[2022-07-16] MEDS: ALBUMIN HUMAN 25 GM/100 ML VIAL IV (17:15)
--- NOTE | 2022-07-16 18:18 | P.OP_ITS ---
Operative Date/Time/Diagnoses Date of procedure: 07/16/22 Time of procedure: 18:18 Pre-op diagnosis: Left intertrochanteric femoral fracture, closed, displaced Post-op diagnosis: same Procedure & Clinicians Procedure: Left hip open reduction internal fixation with dynamic hip screw Same procedure as scheduled: Yes Indications: The patient is a medically frail 82-year-old woman who suffered a ground level fall yesterday sustaining the above-noted fracture. She is agreed to surgery after discussion the risks benefits and alternatives as documented in my consultation note. Surgeon: Chase Guillen Click Yes if Unassisted: Yes Anesthesia Type: General and Local Operative Notes Findings: Appropriate reduction of the fracture with difficult alignment for fracture fixation due to obesity and inability to internally rotate the leg. Closure Type: primary Specimen(s): none sent Prosthetic devices, grafts, tissues, transplants, or devices: Implants used in this procedure were manufactured by the [employer] and included a 135 degree 4 hole long barrel side plate, a 110 mm lag screw, 4 screws to hold the plate to the bone which were 3.2 mm diameter and measured 40 mm, 38 mm, 36 mm and 36 mm in length. In addition a compression screw was used. Applied: implant(s) Estimated Blood Loss (mL): 1,000 Blood products transfused: none Procedure in detail: The patient was seen in the preoperative area where she identified the left hip as the operative site this was marked with my initials. She received preoperative antibiotics and was taken to the operating room and placed on the fracture table after undergoing a general anesthetic on her hospital bed. The left leg was placed in the traction leg charles, the right leg was placed in the well leg charles and flexed, internally rotated and abducted to provide access for the C-arm. The patient is morbidly obese and was difficult to stabilize on the table. In addition her panniculus interfered with the ability of the C-arm to fully visualize the fracture. After extensive efforts we were able to get a satisfactory AP and lateral view. I was not able to internally rotate the leg in such a fashion as to bring the femoral neck parallel to the floor. Attempts to do so caused displacement of the fracture. The lateral aspect of the leg was prepared with ChloraPrep in the usual fashion and draped with an adhesive drape. Using fluoroscopic guidance an initial incision measuring approximately 15 cm was placed over the lateral aspect of the leg. Soon became clear that this was distal to the appropriate positioning for the incision due to the very extensive subcutaneous fat. The incision was eventually length and to approximately 30 cm in length. The fascia lisa was incised. The fascia of the vastus lateralis was incised and elevated from the lateral side of the femur. Placement of the guide pin proved to be extremely difficult. After multiple attempts I managed to pass the pin in the central portion of the femoral head on the AP view. This was still somewhat posterior in the head on the lateral view due to the extensively vertical angle of the femoral neck which was required to maintain fracture reduction. This was measured and drilled with a triple Reamer. 110 mm lag screw was placed across the fracture. Position of the screw was verified in the AP and lateral views as being acceptable. The sideplate was then placed and the 4 cortical screws were placed all the side plate in position. Traction was then released on the leg and the compression screw placed to place compression across the fracture. Position of all hardware was verified as being acceptable on the AP and lateral views. Once again the screws in the center of the femoral head on the AP view but somewhat posterior on the lateral view. This was accepted based on the difficulty of the procedure and I did not feel that additional attempts would improve it. Wound was copiously irrigated with sterile saline solution. The fascia of the vastus lateralis was closed with a running 2-0 Vicryl. Fascia lisa was closed with interrupted and running 0 Vicryl. Subcutaneous layer was closed with interrupted 3-0 Vicryl. The skin was closed with laurel. The subcutaneous tissues were infiltrated with a total of 20 mL 0.5% Marcaine for postoperative pain control. Dressings of Xeroform, sterile 4x4s, sterile ABDs and Tegaderm were applied. The patient was taken from the fracture table and placed on her hospital bed and taken to recovery in good condition having tolerated the procedure well. Complications: none Post-operative Condition: stable Disposition: PACU Plan for aftercare: The patient will be maintained on 50 lb weight-bearing due to the less than ideal positioning of the dynamic hip screw for the 1st 6 weeks. After this she will be allowed to weightbear as tolerated. She will be maintained in the hospital until she is stable for discharge. It is possible she will need [facility]entiary facility placement before returning to her home environment.
[2022-07-16 18:33] LABS: Hematocrit 26.6 % (36-46); Hemoglobin 8.5 g/dL (12.0-16.0)
--- NOTE | 2022-07-16 19:06 | PC.NURSE ---
Postop Note Pt arrived at 1840 from PACU. Drowsy but awakens easily, oriented x3. SPo2 96% on 2L NC. Dressing to left hip C/D/I. CMS intact to BLEs. Call light within reach.
[2022-07-16] MEDS: OXYCODONE IR 5 MG TABLET PO (19:44)
[2022-07-16] MEDS: HYDROMORPHONE 1 MG INJ 0.2 MG IV ×2 (21:11→23:53)
[2022-07-16] MEDS: AMLODIPINE 5 MG TABLET PO (21:11)
[2022-07-16] MEDS: ALBUTEROL/IPRATROPIUM 3 ML AMPUL INH (21:23)
--- NOTE | 2022-07-16 22:16 | PC.NURSE ---
blood pressure 160-170 post op, no high blood pressure medications ordered. Dr. Dunne called and patient given doses of usual blood pressure medications awaiting results.
[2022-07-16] MEDS: OXYCODONE IR 10 MG TABLET PO (23:52)
[2022-07-17] VITALS (10 sets, daily range): BP systolic 131–156; BP diastolic 60–69; PULSE 71–84; RESP 14–24; TEMP 36.2–37.4; O2SAT 93–100
[2022-07-17] MEDS: CEFAZOLIN 2 GM/100 ML PREMIX 100 ML IV ×2 (01:14→09:05)
[2022-07-17] MEDS: OXYCODONE IR 10 MG TABLET PO ×5 (03:10→22:29)
[2022-07-17] MEDS: HYDROMORPHONE 1 MG INJ 0.2 MG IV ×3 (03:10→14:47)
[2022-07-17 05:34] LABS: Hematocrit 25.4 % (36-46); Hemoglobin 8.2 g/dL (12.0-16.0); Mean Corpuscular HGB Conc 32.2 % (30-36); Mean Corpuscular Hemoglobin 24.8 PG (26-34); Mean Corpuscular Volume 77.1 fL (80-100); Platelet Count 217 X10^3/uL (150-400); Red Blood Cell Count 3.29 X10^6/uL (4.0-5.2); Red Cell Distribution Width 18.2 % (11.6-14.8); White Blood Cell Count 5.8 X10^3/uL (4.5-11.0)
--- NOTE | 2022-07-17 08:29 | P.PN_ITS ---
Subjective Subjective Interval history: The patient reports her pain is essentially at the same level as it was p reoperatively. She says the spasms have been less frequent and less severe. She is concerned that she is urinating more frequently than normal. Exam Vital Signs (past 8 hours): - 07/17/22 04:00 Temperature 97.2 F L Pulse Rate 76 Respiratory Rate 19 Blood Pressure 150/69 H Pulse Oximetry 96 Oxygen Flow Rate 2 Oxygen Delivery Method Nasal Cannula Oxygen Flow Rate 2 Narrative Exam Narrative: The patient is seen while resting comfortably in bed. Left hip dressing is dry with no drainage. Leg length looks appropriate as does rotation. Log roll of the leg is minimally painful. Calf is soft. Light touch and motion are intact in the left leg. Objective Labs 07/17/22 04:25 07/16/22 09:50 Labs: Laboratory Results - last 24 hr 07/16/22 07/16/22 07/16/22 09:50 09:50 18:20 WBC 4.2 L RBC 3.48 L Hgb 8.8 L Hct 27.3 L MCV 78.4 L MCH 25.2 L MCHC 32.1 RDW 18.5 H Plt Count 207 Neut % (Auto) 61.5 Lymph % (Auto) 20.2 L Hemphill % (Auto) 15.7 H Eos % (Auto) 2.2 Baso % (Auto) 0.4 Neut # (Auto) 2600 Lymph # (Auto) 800 L Hemphill # (Auto) 700 Eos # (Auto) 100 Baso # (Auto) 0 Sodium 139 Potassium 4.4 Chloride 114 H Carbon Dioxide 19 L BUN 23 H Creatinine 1.58 H Estimated GFR 33 L BUN/Creatinine Ratio 14.6 Glucose 104 Calcium 8.3 L Total Bilirubin 0.4 AST 16 ALT 10 Alkaline Phosphatase 86 Total Protein 6.4 Albumin 3.0 L Globulin 3.4 Albumin/Globulin Ratio 0.9 L Blood Type A Positive Antibody Screen Negative 07/16/22 07/17/22 18:20 04:25 WBC 5.8 RBC 3.29 L Hgb 8.5 L 8.2 L Hct 26.6 L 25.4 L MCV 77.1 L MCH 24.8 L MCHC 32.2 RDW 18.2 H Plt Count 217 Neut % (Auto) Lymph % (Auto) Hemphill % (Auto) Eos % (Auto) Baso % (Auto) Neut # (Auto) Lymph # (Auto) Hemphill # (Auto) Eos # (Auto) Baso # (Auto) Sodium Potassium Chloride Carbon Dioxide BUN Creatinine Estimated GFR BUN/Creatinine Ratio Glucose Calcium Total Bilirubin AST ALT Alkaline Phosphatase Total Protein Albumin Globulin Albumin/Globulin Ratio Blood Type Antibody Screen [facility] Medical History 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 Easy bruisability History of pulmonary embolus (PE) Incontinence Leg swelling Lumbar hernia Neuropathy Port-A-Cath in place Rectal cancer Rectal carcinoma Retained urethral stent S/p nephrectomy Surgical History History of low anterior resection of rectum Family History Mother Hypertension Cancer Son Hypertension Grandfather Heart disease Social History household members: family lives independently: Yes Smoking Status: Current some day smoker Tobacco: How many years used: 60 alcohol intake: current substance use type: does not use Assessment & Plan Post-op Postoperative Procedures: Procedures Operation Date: 07/16/22 17:00 Actual Procedure Side Surgeon p ORIF Hip DHS Left Chase Guillen MD Postoperative day: 1 Postoperative status: doing well, marginal pain control and anemia Postoperative status narrative: The patient is stable postop day 1 status post left hip dynamic hip screw. The surgery was difficult because she has limited internal rotation of her hip and when we attempted to internally rotate the leg to better access the lateral side of the femur the fracture displaced rather than rotating as a unit. This necessitated a difficult placement of the plate. She has a minor worsening of her preoperative anemia due to blood loss. She does complain about urinary frequency this morning but I suspect this has more to do with the fact that she is adequately hydrated now then a urinary tract infection. This will be addressed by the medical service. Postoperative plan: routine post-op care and ambulate Postoperative plan narrative: She will be allowed to weight bear 50 lb weight-b earing on the left leg due to concerns of fracture displacement. She will require [facility]. I have discussed this both with the patient and with the discharge coordinators. From my perspective we can monitor her blood count and not transfuse her today although I defer to Medicine if they feel there is a reason for transfusion. Evaluation and treatment of her urinary issues is also deferred to Medicine. Time Spent With Patient Time with patient: 15-24 minutes Quality VTE Deep Vein Thrombosis/Pulmonary Embolism Present on Admission: No
--- NOTE | 2022-07-17 08:46 | PM.PN.1 ---
Subjective Subjective Date Patient Seen: 07/17/22 Time Patient Seen: 08:46 Interval history: Met with patient reviewed chart. Postop day 1. Having a lot of pain. Denies any chest pain, shortness O breath 12 point review of systems otherwise negative No lightheadedness dizziness or palpitations Exam Vital Signs (past 8 hours): - 07/17/22 04:00 Temperature 97.2 F L Pulse Rate 76 Respiratory Rate 19 Blood Pressure 150/69 H Pulse Oximetry 96 Oxygen Flow Rate 2 Oxygen Delivery Method Nasal Cannula Oxygen Flow Rate 2 Narrative Exam Narrative: Afebrile, vital signs are stable HEENT is unremarkable Neck: Supple Chest: Clear to auscultation Cor: Distant S1-S2 irregular rhythm with well-controlled rate Abdomen: Positive bowel sounds, large abdominal wall hernia with stoma in place appears to be functioning Extremities no significant edema Objective Labs 07/17/22 04:25 07/16/22 09:50 Labs: Laboratory Results - last 24 hr 07/16/22 07/16/22 07/16/22 09:50 09:50 18:20 WBC 4.2 L RBC 3.48 L Hgb 8.8 L Hct 27.3 L MCV 78.4 L MCH 25.2 L MCHC 32.1 RDW 18.5 H Plt Count 207 Neut % (Auto) 61.5 Lymph % (Auto) 20.2 L Dickenson % (Auto) 15.7 H Eos % (Auto) 2.2 Baso % (Auto) 0.4 Neut # (Auto) 2600 Lymph # (Auto) 800 L Dickenson # (Auto) 700 Eos # (Auto) 100 Baso # (Auto) 0 Sodium 139 Potassium 4.4 Chloride 114 H Carbon Dioxide 19 L BUN 23 H Creatinine 1.58 H Estimated GFR 33 L BUN/Creatinine Ratio 14.6 Glucose 104 Calcium 8.3 L Total Bilirubin 0.4 AST 16 ALT 10 Alkaline Phosphatase 86 Total Protein 6.4 Albumin 3.0 L Globulin 3.4 Albumin/Globulin Ratio 0.9 L Blood Type A Positive Antibody Screen Negative 07/16/22 07/17/22 18:20 04:25 WBC 5.8 RBC 3.29 L Hgb 8.5 L 8.2 L Hct 26.6 L 25.4 L MCV 77.1 L MCH 24.8 L MCHC 32.2 RDW 18.2 H Plt Count 217 Neut % (Auto) Lymph % (Auto) Dickenson % (Auto) Eos % (Auto) Baso % (Auto) Neut # (Auto) Lymph # (Auto) Dickenson # (Auto) Eos # (Auto) Baso # (Auto) Sodium Potassium Chloride Carbon Dioxide BUN Creatinine Estimated GFR BUN/Creatinine Ratio Glucose Calcium Total Bilirubin AST ALT Alkaline Phosphatase Total Protein Albumin Globulin Albumin/Globulin Ratio Blood Type Antibody Screen [facility] Medical History 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 Easy bruisability History of pulmonary embolus (PE) Incontinence Leg swelling Lumbar hernia Neuropathy Port-A-Cath in place Rectal cancer Rectal carcinoma Retained urethral stent S/p nephrectomy Surgical History History of low anterior resection of rectum Family History Mother Hypertension Cancer Son Hypertension Grandfather Heart disease Social History household members: family lives independently: Yes Smoking Status: Current some day smoker Tobacco: How many years used: 60 alcohol intake: current substance use type: does not use Assessment & Plan Assessment & Plan narrative: Assessment & Plan narrative: Assessment 1. Hip fracture postop day 1. Status post repair by Dr. Guillen Plan: Per surgery. Some difficulty moving and pain. Encouraged patient to work with physical therapy Assessment 2. Fall ground level.? No evidence of significant pathology other than slipping.? Will follow.? Will need PT Assessment 3. COPD.? Stable at this time.? Will continue with pulmonary toilet Assessment 4. History atrial fibrillation.? Stable.? Has been on anticoagulation.? Will start this morning per surgery Assessment 5. History of DVT with pulmonary embolism.? Unprovoked.? Patient will be on lifelong anticoagulation.? Will start this morning per surgery Assessment 6. Chronic renal failure.? Labs not ordered today will order Assessment 7. Hypertension.? Stable continue with outpatient treatment Assessment 8. Anemia, postop on top of chronic normocytic anemia Plan: No symptoms. Will continue to follow with daily CBC. Assessment 9. Large left lower abdomen wall hernia.? With colostomy.? All secondary to previous rectal surgery for rectal cancer which appears to be stable no changes at this time.? Assessment 10. Left ureteral stricture with urostomy.? Patient is in process of seeing if she can get this repaired and get rid of your ostomy.? There is some chance that she will have both that surgery and hernia surgery in the near future but will have to see how things go now.? Has been put on hold.? Assessment 11. Depression stable on no meds.? Assessment 12. Esophageal reflux.? Will continue IV ppi been pro resolved.? Code status full.? DVT prophylaxis will be back on her anticoagulation.? Disposition. Patient is reticent to go to skilled care facility but understands that really this is the only option for best chance at recovery. 50 minutes spent with patient, discussing with nursing and skilled care and patient's son and reviewing chart and formulating a plan and documentation Quality VTE Deep Vein Thrombosis/Pulmonary Embolism Present on Admission: No
[2022-07-17 08:56] LABS: HEMOLYSIS < 15 (0-50); Potassium 4.2 mmol/L (3.4-5.1)
[2022-07-17 08:57] LABS: BUN Creatinine Ratio 13.7 (6-22); Blood Urea Nitrogen 20 mg/dL (7-17); Calcium 8.7 mg/dL (8.4-10.2); Carbon Dioxide 20 mmol/L (22-32); Chloride 109 mmol/L (98-107); Estimated Glomerular Filt Rate 36 mL/min (>60); Glucose 136 mg/dL (80-110); Sodium 138 mmol/L (137-145)
[2022-07-17] MEDS: APIXABAN 5 MG TABLET 2.5 MG PO ×2 (09:05→22:08)
[2022-07-17] MEDS: AMLODIPINE 5 MG TABLET PO (09:05)
[2022-07-17] MEDS: METOPROLOL IR 25 MG TABLET 12.5 MG PO ×2 (09:05→22:08)
[2022-07-17] MEDS: ALBUTEROL/IPRATROPIUM 3 ML AMPUL INH ×4 (09:59→20:13)
--- NOTE | 2022-07-17 11:15 | OT.IP.EVAL ---
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 Easy bruisability History of pulmonary embolus (PE) Incontinence Leg swelling Lumbar hernia Neuropathy Port-A-Cath in place Rectal cancer Rectal carcinoma Retained urethral stent S/p nephrectomy Surgical History (Last Reviewed 07/16/22 @ 13:16 by Eric Grover MD) History of low anterior resection of rectum Occupational Therapy Inpatient Evaluation/Re-Eval M1 PT/OT-IP Prior Functional Status Start: 07/17/22 13:37 Freq: NEEDED Status: Active Protocol: Document 07/17/22 10:40 [facility] (Rec: 07/17/22 13:53 [facility] [id number]) Medical Review Prior Functional Status Medical History Reviewed Yes Diet/Fluid Consistency Regular Communication Ind Mobility and Gait Use of SPC due to L knee OA for home and short community mobility. Has a FWW but does not use it at baseline. Activities of Daily Living and IADL's Ind with self care ADLs. Son assists with home care ADLs and community needs. Prior Functional Level (Other details) Pt lives on same property as son. She has 2 adult grddtrs that assist as well. Son helps with transportation and shopping needs. Social History Household Members family Living Arrangements House Number of Floors (Floors) One Floor Number of Stairs To Enter/Railing? 4 steps, several foot long landing and then 4 more steps. Bilateral railing. 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 M2 OT-IP Current Condition Start: 07/17/22 13:37 Freq: Status: Active Protocol: Document 07/17/22 10:40 [facility] (Rec: 07/17/22 13:53 [facility] [id number]) Occupational Therapy Current Condition Current Condition Evaluation Date 07/17/22 Treatment Diagnosis S/p L ORIF due to fall Diagnosis Onset Date 07/16/22 Weight Bearing Status Weight Bearing Status Partial Weight Bearing Allowed Weight Bearing Amount (enter % 50lbs for LLE or #) (%) M3 OT- IP Subjective and Pain Start: 07/17/22 13:37 Freq: Status: Active Protocol: Document 07/17/22 10:40 [facility] (Rec: 07/17/22 13:53 [facility] [id number]) OT- Subjective Occupational Therapy Visit Type Type Initial Evaluation Visit Start Time 10:40 Visit Stop Time 11:15 Total Visit Minutes 35 Occupational Therapy Visit Comments Patient Comments Pt agreed to try to get up. PT also present for OT eval as pt needing extensive assist to move at this time. Patient/Caregiver Goals To get better. OT Pain Assessment Pain When Pain Assessed At Rest Pain Present Pain Present Pain Reported Location left hip Intensity 8 Scale Used Numeric (0 - 10) M4 OT- IP ADL's Start: 07/17/22 13:37 Freq: Status: Active Protocol: Document 07/17/22 10:40 [facility] (Rec: 07/17/22 13:53 [facility] [id number]) OT [id number] Comments OT Self-Feeding Comments Not at meal time OT ADL-Grooming General Evaluation Grooming Ability Standby Assistance Areas Needing Assistance Retrieving/Set-up of Grooming Items,Face Washing Comments OT Grooming Comments Pt able to wash her face while in bed after set-up. OT ADL-Oral Care General Eval Oral Care Ability Standby Assistance Areas of Assistance Retrieving/Set-Up of Items Comments Oral Care Comments Pt able to do all oral care needs while seated in the bed. OT ADL-Dressing General Eval Lower Body Dressing Ability Total Assistance Areas Needing Assistance Socks OT ADL-Toileting General Evaluation Toileting Ability Total Assistance Comments OT Toileting Comments Due to pt's limited mobility, suggested to nursing that pt has a Pure Wick in place. OT ADL-Bathing Comments OT Bathing Comments Sponge bath more appropriate at this time. M5 OT- IP IADL's Start: 07/17/22 13:37 Freq: Status: Active Protocol: Document 07/17/22 10:40 [facility] (Rec: 07/17/22 13:53 [facility] [id number]) OT-Instrumental Activities of Daily Living Deficits IADL Deficits Identified Deficits Home Safety Awareness Awareness of Need for Assistance at Home Good Awareness Home Safety Comments At this time due to decreased mobility, pt not safe to go home. M6 OT- IP Functional Cognition Start: 07/17/22 13:37 Freq: Status: Active Protocol: Document 07/17/22 10:40 [facility] (Rec: 07/17/22 13:53 [facility] [id number]) Cognitive Factors Limiting Selfcare Function Cognitive Ability Level of Alertness Alert Patient Orientation Name,Place,Situation Attention Span Ability Capable of Focused Attention, Capable of Sustained Attention Ability to Follow Commands Able to Follow One Step Commands Cognitive Comments Cognitive Assessment Comments Pt able to follow commands during mobility and ADL needs. OT- Vision and Hearing OT- Hearing Assessment OT- Hearing Assessment WFL M7 OT- IP Mobility and Balance Start: 07/17/22 13:37 Freq: Status: Active Protocol: Document 07/17/22 10:40 [facility] (Rec: 07/17/22 13:53 [facility] [id number]) OT-Transfer Assessment Comments Mobility Comments With HOB up , pt needing assist to help move her LLE and RLE towards the edge of the bed in addition to use of green pad to move her closer to the edge of the bed. Pt having too much pain and having to stop and not able to get up at this time. Pt stating that he pain in 10/10 when moving. OT- Balance Assessment Comments Other Balance Tests/Deviations/Treatment Unable to assess as not able : to sit pt up due to pain. M8 OT- IP Objective Assessments Start: 07/17/22 13:37 Freq: Status: Active Protocol: Document 07/17/22 10:40 [facility] (Rec: 07/17/22 13:53 [facility] [id number]) OT-Muscle Tone Assessment Comments Muscle Tone Comments Pt has tremors with her BUE when she is having pain. M9 OT- IP Assessment and Plan Start: 07/17/22 13:37 Freq: Status: Active Protocol: Document 07/17/22 10:40 [facility] (Rec: 07/17/22 13:53 [facility] [id number]) OT Summary Assessment and Plan Potential Rehabilitation Potential Good Analytic Complexity at Evaluation High Summary OT Impairments Pain,Strength,Balance, Functional Mobility,Self- Feeding,Grooming,Dressing, Toileting,Bathing,Toilet Transfers,Shower Transfers, Activity Tolerance Progress Towards Goals Slow Progress due to Pain,Slow Progress due to Medical Issues,Slow Progress due to Activity Tolerance Assessment Summary Pt HIGH complexity and main barriers are pain, decreased activity tolerance, strength, endurance, balance and has extensive medical history. Pt is 50lb weight bearing for LLE at this time and in addition to prior to her fall pt was not feeling well, having diarrhea and vomiting. Pt will benefit from skilled rehab at this time and will probably will need BLS transport as well. Goals Self-Feeding Goal Independent Grooming Goal Independent Dressing Goal Moderate Assistance Toileting Goal Minimal Assistance Bathing Goal Moderate Assistance Toilet Transfer Goal Moderate Assistance Shower Transfer Goal Moderate Assistance Days to Meet Goals 30 Frequency of Treatment Frequency Of Treatment Once a Day Treatment Plan OT Treatment Plan ADL Training,Functional Mobility,Patient/Family Education,Discharge Planning Discharge Recommendations OT Discharge Recommendations SNF Rehab Transportation Needs at Discharge Stretcher/Ambulance
--- NOTE | 2022-07-17 11:25 | CM.DPNOTE ---
Addendum entered by THERESE Huynh 07/17/22 11:30: ADD: According to OT, may need BLS transport. Not moving a lot today JW Original Note: DCP Note DR Guillen, Dr Ruiz and therapies recommending SNF upon discharge and patient now agreeable Met w/patient and her son Deejay, reviewed SNF choices electronically via IPAD Patient requests [facility] in order to stay close to her family, no back up options given at this time as [facility], kindly agreed to discuss this referral /August at [facility]. Ready tomorrow for SNF. PRISCA completed JW
--- NOTE | 2022-07-17 11:52 | PT.IIE ---
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 Has a FWW but does not use it at baseline. Activities of Daily Living and IADL's Ind with self care ADLs. Son assists with home care ADLs and community needs. Prior Functional Level (Other details) Pt lives on same property as son. She has 2 adult grddtrs that assist as well. Son helps with transportation and shopping needs. Social History Household Members family Living Arrangements House Number of Floors (Floors) One Floor Number of Stairs To Enter/Railing? 4 steps, several foot long landing and then 4 more steps. Bilateral railing. Home Environment Standard Height Toilet,Tub/ Shower Home Equipment Front Wheel Walker,Straight Cane,Shower Seat with Backrest Employment Status Retired Additional Social History Comment Enjoys going out with friends to eat. M2 PT-IP Current Condition Start: 07/17/22 11:33 Freq: Status: Active Protocol: Document 07/17/22 11:34 [facility] (Rec: 07/17/22 11:51 [facility] [id number]) Physical Therapy Current Condition Current Condition Evaluation Date 07/17/22 Treatment Diagnosis L hip ORIF due to fall; difficulty with ambulation Onset Date 07/16/22 M3 PT-IP Subjective Start: 07/17/22 11:33 Freq: Status: Active Protocol: Document 07/17/22 11:34 [facility] (Rec: 07/17/22 11:51 [id number]) Subjective Physical Therapy Visit Type Type Initial Evaluation Visit Start Time 10:30 Visit Stop Time 11:10 Total Visit Minutes 38 Physical Therapy Visit Comments Patient Comments Pt hesitant to move due to pain but willing to try Patient Goals None stated. Therapy Pain Assessment Pain When Pain Assessed During Mobility Pain Present Pain Present Pain Reported Location left hip Intensity 10 Scale Used Numeric (0 - 10) Description Acute Pain Behaviors Calling Out,Facial Grimacing, Guarding,Holding Area Pain Management Techniques Re-positioning,Timing of Activity with Medications M4 PT-IP Mobility and Gait Start: 07/17/22 11:33 Freq: Status: Active Protocol: Document 07/17/22 11:34 [facility] (Rec: 07/17/22 11:51 [id number]) PT-Bed Mobility Assessment Supine to Sit Supine to Sit 2 Person Assistance,Head of Bed Elevated Scooting Scooting Up and Down in Bed Dependent PT-Transfer Assessment Comments Mobility Comments Pt unable to obtain sitting posture EOB, unable to stand, unable to work on transfers. Pt did attempt 2x with assist of 2 therapists and draw sheets. She was able to use RLE and BUE to assist with scooting laterally to EOB but once LLE was beginning to be lowered off EOB to sit up she was unable to continue due to pain/pain behaviors. Scooting up in bed required total assist of 2. Pt reporting feeling nauseous after supine ther ex; prior to attempting sitting. BP 152/70, O2 98% and HR 77 bpm. With rest and water/washcloth, nausea decreased. Gait Assessment Comments Gait Comments Unable Stair Climbing Assessment Comments Stair Climbing Comments Unable PT-Balance Assessment Comments Other Balance Tests/Deviations/Treatment Unable to assess : M5 PT-IP Objective Assessments Start: 07/17/22 11:33 Freq: Status: Active Protocol: Document 07/17/22 11:34 [facility] (Rec: 07/17/22 11:51 [id number]) Orientation Orientation/Cognition Level of Alertness Alert Orientation Name,Date,Place,Situation Language Function Ability No Deficits Noted Safety Awareness Understands Safety Issues Memory Description No Deficits Noted Gross Range of Motion Lower Extremity ROM Assessment Left Impaired Impairments L hip AAROM is significantly limited by pain. Hip flx ~0-15 deg and hip abd ~0-5 deg BLE ankle and RLE knee AROM WNLs Strength Lower Extremity Strength Assessment Left Impaired Hip 2/5 Knee 3/5 Ankle 3/5 Comments Strength Comments RLE functionally demonstrated at ~4 to 5/5 Coordination Assessment Assessment Coordination Comments Tremors throughout all 4 extremities noted and increasing with pain. Sensation Assessment Sensation Gross Sensation Right LE Impaired,Left LE Impaired Sensation Description Tingling Comments Sensation Comments Hx of neuropathy BLE lower legs. Muscle Tone Muscle Tone WNL Yes M6 PT-IP Treatment Start: 07/17/22 11:33 Freq: Status: Active Protocol: Document 07/17/22 11:34 [facility] (Rec: 07/17/22 11:51 [id number]) Physical Therapy Treatment Exercises Exercises Ankle Pumps,Heel Slides,Supine Hip Abduction Education Education Provided Precautions,Weight Bearing Status,Post-Op Packet,Safety M7 PT-IP Assessment and Plan Start: 07/17/22 11:33 Freq: Status: Active Protocol: Document 07/17/22 11:34 [facility] (Rec: 07/17/22 11:51 [id number]) PT Summary Assessment and Plan Potential Rehabilitation Potential Good Status of Condition at Evaluation Evolving Summary Impairments Pain,ROM,Strength,Balance,Bed Mobility,Transfers,Gait, Activity Tolerance Progress Towards Goals Slow Progress due to Pain Assessment Summary Pt s/p L hip ORIF due to GLF at home. She was on floor for ~2 hours. WB status is 50lbs on LLE for 6 weeks then WBAT. She has hx of multiple abdominal hernias port a cath, and colostomy. PLOF: Pt uses a SPC for ambulation in home. Son is on property and very supportive. Assists with driving and home care ADLs. CLOF: Therapy timed with pain medication and OT for assist of 2. Pt is reporting 8/10 pain at rest and 10/10 with any attempts at movement. She tolerated ankle pumps, AAROM heel slides and hip abduction ~5-8 reps. Attempted 2x with assist of 2 therapists at sitting EOB. She was unable to tolerate complete transfer due to pain. Pt was assisted back to bed. Assist of 2 for positioning up in bed and nsng assisting with external catheter placement. PT to continue progressing mobility assessment as able. Discussed with Pt and nsng pain mgmt for follow up PT sessions. Recommend SNF at discharge due to increased assist for mobility and recent hip fx in setting of co-morbidities. Goals Bed Mobility Goal Moderate Assistance Transfer Goal Moderate Assistance Gait Goal Moderate Assistance Gait Distance 50 Other Goals Ascend/descend 4 steps with railing and mod A. Days to Meet Goals 5 Frequency of Treatment Frequency Of Treatment Twice a Day Treatment Plan Physical Therapy Treatment Plan Bed Mobility Training,Transfer Training,Gait Training, Therapeutic Exercise,Balance Retraining,Post Op Education, Discharge Planning, Neuromuscular Re-ed, Coordination Retraining Weight Bearing Status Weight Bearing Status Partial Weight Bearing Allowed Weight Bearing Amount (enter % LLE 50lb weight bearing or #) (%) restriction Recommendations To Nursing Amount of Assist Needed PT/OT Assist Only Discharge Recommendations PT Discharge Recommendations SNF Rehab Transportation Needs at Discharge Stretcher/Ambulance
--- NOTE | 2022-07-17 13:18 | CM.DPC ---
DCP Cont: Patient's son, Deejay, came by the office and inquired about [facility], if they could accept patient. Let him know that this [place] Comic Book Writer could call to verify. Did call August, it is noted that patient would be eligible by Thursday, for 3 Medicare midnight. August indicated, she can accept patient, but have to work on staffing for that day. Met with patient in her room, and updated her. P: DCP to continue to work on plan, August at [facility] can accept, she is working on staffing for Thursday. Uyen Arellano RN/Meat Service Team Member
--- NOTE | 2022-07-17 14:09 | OT.IPNOTE ---
Spoke to pt and decided with OT to have trapeze bar in place to assist pt's mobility while in bed. Able to talk to nursing and install the trapeze bar on the hospital bed. NO charge
--- NOTE | 2022-07-17 15:21 | PT.IPTN ---
Current Diagnoses Fracture of unspecified part of neck of left femur, initial encounter for closed fracture (07/16/22) Surgery Performed Operation Date: 07/16/22 17:00 Actual Procedures p ORIF Hip DHS(Left) - Chase Guillen MD Physical Therapy Treatment Note M2 PT-IP Current Condition Start: 07/17/22 11:33 Freq: Status: Active Protocol: Document 07/17/22 11:34 [facility] (Rec: 07/17/22 11:51 [facility] [id number]) Physical Therapy Current Condition Current Condition Evaluation Date 07/17/22 Treatment Diagnosis L hip ORIF due to fall; difficulty with ambulation Onset Date 07/16/22 M3 PT-IP Subjective Start: 07/17/22 11:33 Freq: Status: Active Protocol: Document 07/17/22 14:45 [facility] (Rec: 07/17/22 15:46 [facility] [id number]) Subjective Physical Therapy Visit Type Type Treatment Note Visit Start Time 14:45 Visit Stop Time 15:21 Total Visit Minutes 36 Number of SADDLE AND SIDE WIRE STITCHER Visits 1 Physical Therapy Visit Comments Patient Comments PT present for assistance. Pt hesistane but agreeable. C/o high level of pain. Therapy Pain Assessment Pain When Pain Assessed During Mobility Pain Present Pain Present Pain Reported Location left hip Intensity 9 Scale Used Numeric (0 - 10) Description With Movement Pain Behaviors Calling Out,Facial Grimacing, Guarding,Holding Area Pain Management Techniques Distraction,Modification of Treatment,Re-positioning, Timing of Activity with Medications M4 PT-IP Mobility and Gait Start: 07/17/22 11:33 Freq: Status: Active Protocol: Document 07/17/22 14:45 [facility] (Rec: 07/17/22 15:46 KS [id number]) PT-Bed Mobility Assessment Rolling Type of Rolling Bilateral Level of Assist Maximal Assistance,1 Person Assistance Supine to Sit Supine to Sit Maximum Assistance,2 Person Assistance,Head of Bed Elevated Sit to Supine Sit to Supine Maximum Assistance,2 Person Assistance,Head of Bed Elevated Scooting Scooting to Edge of Bed Moderate Assistance Scooting Up and Down in Bed Minimal Assistance PT-Transfer Assessment Comments Mobility Comments Pt in bed upon arrival, agreeable to attempt sitting EOB. Pt requires increased time and prefers to move slowly in attempt to avoid pain. She was able to complete ankle pumps and quad sets prior to initating mobility. Very minimal hip abduction and flexion w/ assistance. Pt required Max A x2 for sup<>sit . She did demonstrate good effort to scoot forwards towards EOB but ultimately needed Mod A. Able to maintain seated balance EOB SBA w/ use of hand rail. Unable to tolerate further activity d/t pain. Max A x2 for sit<>sup. Max A for rolling bilaterally for stephen and pillow placement . Pt able to use trapeze and RLE to assist scooting up in bed in trendelenberg. Pt left in bed w/ all needs in reach. Gait Assessment Comments Gait Comments Unable Stair Climbing Assessment Comments Stair Climbing Comments Unable PT-Balance Assessment Comments Other Balance Tests/Deviations/Treatment Unable to assess : M5 PT-IP Objective Assessments Start: 07/17/22 11:33 Freq: Status: Active Protocol: Document 07/17/22 11:34 [facility] (Rec: 07/17/22 11:51 [facility] [id number]) Orientation Orientation/Cognition Level of Alertness Alert Orientation Name,Date,Place,Situation Language Function Ability No Deficits Noted Safety Awareness Understands Safety Issues Memory Description No Deficits Noted Gross Range of Motion Lower Extremity ROM Assessment Left Impaired Impairments L hip AAROM is significantly limited by pain. Hip flx ~0-15 deg and hip abd ~0-5 deg BLE ankle and RLE knee AROM WNLs Strength Lower Extremity Strength Assessment Left Impaired Hip 2/5 Knee 3/5 Ankle 3/5 Comments Strength Comments RLE functionally demonstrated at ~4 to 5/5 Coordination Assessment Assessment Coordination Comments Tremors throughout all 4 extremities noted and increasing with pain. Sensation Assessment Sensation Gross Sensation Right LE Impaired,Left LE Impaired Sensation Description Tingling Comments Sensation Comments Hx of neuropathy BLE lower legs. Muscle Tone Muscle Tone WNL Yes M6 PT-IP Treatment Start: 07/17/22 11:33 Freq: Status: Active Protocol: Document 07/17/22 14:45 [facility] (Rec: 07/17/22 15:46 [facility] [id number]) Physical Therapy Treatment Exercises Exercises Ankle Pumps,Quad Sets,Heel Slides,Supine Hip Abduction Education Education Provided Precautions,Weight Bearing Status,Post-Op Packet,Safety M7 PT-IP Assessment and Plan Start: 07/17/22 11:33 Freq: Status: Active Protocol: Document 07/17/22 14:45 [facility] (Rec: 07/17/22 15:46 [facility] [id number]) PT Summary Assessment and Plan Potential Rehabilitation Potential Good Summary Impairments Pain,ROM,Strength,Balance,Bed Mobility,Transfers,Gait, Activity Tolerance Progress Towards Goals Slow Progress due to Pain Assessment Summary Pt remains limited by pain and weakness. Unable to progress to standing today, however pt did tolerate sitting EOB. Required Max A x2 for most bed mobility including sup<>sit, but demonstrated good effort w / scooting towards EOB and using trapeze to scoot up in bed when supine. She c/o 9/10 pain w/ mobility. She requires 2PA and will need SNF to improve strength, activity tolerance, and functional mobility. Goals Bed Mobility Goal Moderate Assistance Transfer Goal Moderate Assistance Gait Goal Moderate Assistance Gait Distance 50 Other Goals Ascend/descend 4 steps with railing and mod A. Days to Meet Goals 5 Frequency of Treatment Frequency Of Treatment Twice a Day Treatment Plan Physical Therapy Treatment Plan Bed Mobility Training,Transfer Training,Gait Training, Therapeutic Exercise,Balance Retraining,Post Op Education, Discharge Planning, Neuromuscular Re-ed, Coordination Retraining Weight Bearing Status Weight Bearing Status Partial Weight Bearing Allowed Weight Bearing Amount (enter % LLE 50lb weight bearing or #) (%) restriction for 6 wks then WBAT Recommendations To Nursing Amount of Assist Needed PT/OT Assist Only Discharge Recommendations PT Discharge Recommendations SNF Rehab Transportation Needs at Discharge Stretcher/Ambulance
[2022-07-17] MEDS: LATANOPROST 0.005% OPHTH 2.5 ML 1 DROPS EYE-BOTH (22:09)
[2022-07-17] MEDS: SODIUM CHLORIDE 0.9% FLUSH 10 ML IV (22:09)
[2022-07-18] VITALS (8 sets, daily range): BP systolic 141–176; BP diastolic 65–73; PULSE 66–78; RESP 16–20; TEMP 36.3–36.9; O2SAT 93–94
[2022-07-18] MEDS: OXYCODONE IR 10 MG TABLET PO ×3 (03:00→21:29)
[2022-07-18 04:47] LABS: BUN Creatinine Ratio 15.4 (6-22); Blood Urea Nitrogen 24 mg/dL (7-17); Calcium 8.5 mg/dL (8.4-10.2); Carbon Dioxide 21 mmol/L (22-32); Chloride 106 mmol/L (98-107); Estimated Glomerular Filt Rate 33 mL/min (>60); Glucose 108 mg/dL (80-110); HEMOLYSIS < 15 (0-50); Potassium 4.5 mmol/L (3.4-5.1); Sodium 134 mmol/L (137-145)
[2022-07-18 06:22] LABS: Basophils Absolute Auto 0 /uL (0-100); Basophils Percent Auto 0.3 % (0-2); Eosinophils Absolute Auto 0 /uL (0-450); Lymphocytes Absolute Auto 800 /uL (1100-4500); Lymphocytes Percent Auto 16.7 % (25-40); Mean Corpuscular HGB Conc 32.2 % (30-36); Mean Corpuscular Hemoglobin 24.8 PG (26-34); Mean Corpuscular Volume 76.9 fL (80-100); Monocytes Absolute Auto 700 /uL (0-900); Monocytes Percent Auto 15.9 % (3-14); Neutrophils Absolute Auto 3000 /uL (1500-7000); Neutrophils Percent Auto 66.1 % (50-75); Platelet Count 184 X10^3/uL (150-400); Red Blood Cell Count 2.67 X10^6/uL (4.0-5.2); Red Cell Distribution Width 18.4 % (11.6-14.8); White Blood Cell Count 4.6 X10^3/uL (4.5-11.0)
[2022-07-18 06:31] LABS: Add Manual Diff / Slide Review SLIDE REVIEW; Hematocrit 20.5 % (36-46); Hemoglobin 6.6 g/dL (12.0-16.0)
--- NOTE | 2022-07-18 07:00 | PC.NURSE ---
Gas Singer Note-Patient is A/Ox4, using oxycodone for pain control. Intermittent heartburn, crackers and stevie rosy given. Am H/H 6.6/20.5 reported to insulation power unit tender MD, Dr Dunne, says Dr Grover will see patient this am. Alex GORDON.
[2022-07-18 07:02] LABS: Anisocytosis 2+; Poikilocytosis 1+
--- NOTE | 2022-07-18 08:52 | PM.PNPO.1 ---
Subjective Subjective Date Patient Seen: 07/18/22 Time Patient Seen: 08:30 Interval history: Pt c/o severe nausea and heartburn that started a few hours ago. Left leg hurts but nausea and heartburn supercede it. Exam Vital Signs (past 8 hours): - 07/18/22 07:00 Temperature 97.5 F L Pulse Rate 76 Respiratory Rate 20 Blood Pressure 152/66 H Pulse Oximetry 94 Oxygen Flow Rate 0 Fraction of Inspired Oxygen 21 SaO2/FiO2 Ratio 442 Oxygen Delivery Method Room Air Oxygen Flow Rate 0 Narrative Exam Narrative: 4/5 hip flexors, quadriceps, hamstrings; 5/5 DF, PF, EHL on left. Sensation to light touch intact throughout LLE. Calves soft and compressible. Intraoperative dressing CDI. Objective Labs 07/18/22 06:15 07/18/22 04:15 Labs: Laboratory Results - last 24 hr 07/16/22 07/17/22 07/18/22 18:20 04:25 04:15 WBC RBC Hgb Hct MCV MCH MCHC RDW Plt Count Neut % (Auto) Lymph % (Auto) [place] % (Auto) Eos % (Auto) Baso % (Auto) Neut # (Auto) Lymph # (Auto) [place] # (Auto) Eos # (Auto) Baso # (Auto) RBC Morphology Poikilocytosis Anisocytosis Sodium 138 134 L Potassium 4.2 4.5 Chloride 109 H 106 Carbon Dioxide 20 L 21 L BUN 20 H 24 H Creatinine 1.46 H 1.56 H Estimated GFR 36 L 33 L BUN/Creatinine Ratio 13.7 15.4 Glucose 136 H 108 Calcium 8.7 8.5 Blood Type A Positive Antibody Screen Negative Crossmatch See Detail 07/18/22 06:15 WBC 4.6 RBC 2.67 L Hgb 6.6 L* Hct 20.5 L* MCV 76.9 L MCH 24.8 L MCHC 32.2 RDW 18.4 H Plt Count 184 Neut % (Auto) 66.1 Lymph % (Auto) 16.7 L [place] % (Auto) 15.9 H Eos % (Auto) 1.0 L Baso % (Auto) 0.3 Neut # (Auto) 3000 Lymph # (Auto) 800 L [place] # (Auto) 700 Eos # (Auto) 0 Baso # (Auto) 0 RBC Morphology Not Reportable Poikilocytosis 1+ H Anisocytosis 2+ H Sodium Potassium Chloride Carbon Dioxide BUN Creatinine Estimated GFR BUN/Creatinine Ratio Glucose Calcium Blood Type Antibody Screen Crossmatch [facility] Medical History (Updated 07/18/22 @ 08:57 by Candelaria Ridley PA-C) 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 Easy bruisability History of pulmonary embolus (PE) Incontinence Leg swelling Lumbar hernia Neuropathy Port-A-Cath in place Rectal cancer Rectal carcinoma Retained urethral stent S/p nephrectomy Surgical History (Updated 07/18/22 @ 08:57 by Candelaria Ridley PA-C) History of low anterior resection of rectum Family History Mother Hypertension Cancer Son Hypertension Grandfather Heart disease Social History household members: family lives independently: Yes Smoking Status: Current some day smoker Tobacco: How many years used: 60 alcohol intake: current substance use type: does not use Assessment & Plan Post-op Assessment and plan (1) Status post hip surgery: Assessment and Plan narrative: The patient will be maintained on 50 lb weight-bearing on the left leg due to the less than ideal positioning of the dynamic hip screw for the 1st 6 weeks.? After this she will be allowed to weightbear as tolerated.??She should follow up in orthopedic office in 2 weeks for a wound check with a PA and in 6 weeks for repeat imaging and symptom check with Dr Guillen. She will need SNF rehab once she is medically stable. (2) Acute on chronic anemia: Assessment and Plan narrative: VSS stable, electrolytes WNL, but H/H precipitously low. Hospitalist has ordered 1 unit PRBCs and troponin since my visit this morning. Will continue to follow H/H trend. If H/H does not stabilize following transfusion, may consider repeat imaging/return to OR to r/o active bleeding from surgical/fracture site. Postoperative Procedures: Procedures Operation Date: 07/16/22 17:00 Actual Procedure Side Surgeon p ORIF Hip DHS Left Chase Guillen MD Postoperative day: 2 Quality VTE Deep Vein Thrombosis/Pulmonary Embolism Present on Admission: No
--- NOTE | 2022-07-18 09:00 | PM.PN.1 ---
Subjective Subjective Interval history: CC: fall Low Hgb this morning with new complaint of chest/abdominal discomfort like heartburn but i've never had heartburn before she is POD #2 s/p surgery restarted eliquis yesterday. Nibbled at breakfast burping like crazy sort of a sore midepigastric pain She does have hx of afib however EKG today is NSR no NIECY. Stat troponin was wnl - I do suspect some degree of demand ischemia - hanging 2Us - GERD tx. Exam Vital Signs (past 8 hours): - 07/18/22 07:00 Temperature 97.5 F L Pulse Rate 76 Respiratory Rate 20 Blood Pressure 152/66 H Pulse Oximetry 94 Oxygen Flow Rate 0 Fraction of Inspired Oxygen 21 SaO2/FiO2 Ratio 442 Oxygen Delivery Method Room Air Oxygen Flow Rate 0 Narrative Exam Narrative: pale as a sheet Resp Auscultation: clear to auscultation bilaterally Cardio Rate: regular rate Rhythm: regular rhythm Heart Sounds: S1 normal and S2 normal Other: no m/r/g GI Other: normal bowel sounds, colostomy Back/Spine/Pelvis Other: urostomy Neuro General: patient alert, patient awake, patient oriented x3 and moves all extremities Objective Labs 07/18/22 06:15 07/18/22 04:15 Labs: Laboratory Results - last 24 hr 07/16/22 07/17/22 07/18/22 18:20 04:25 04:15 WBC RBC Hgb Hct MCV MCH MCHC RDW Plt Count Neut % (Auto) Lymph % (Auto) [place] % (Auto) Eos % (Auto) Baso % (Auto) Neut # (Auto) Lymph # (Auto) [place] # (Auto) Eos # (Auto) Baso # (Auto) RBC Morphology Poikilocytosis Anisocytosis Sodium 138 134 L Potassium 4.2 4.5 Chloride 109 H 106 Carbon Dioxide 20 L 21 L BUN 20 H 24 H Creatinine 1.46 H 1.56 H Estimated GFR 36 L 33 L BUN/Creatinine Ratio 13.7 15.4 Glucose 136 H 108 Calcium 8.7 8.5 Blood Type A Positive Antibody Screen Negative Crossmatch See Detail 07/18/22 06:15 WBC 4.6 RBC 2.67 L Hgb 6.6 L* Hct 20.5 L* MCV 76.9 L MCH 24.8 L MCHC 32.2 RDW 18.4 H Plt Count 184 Neut % (Auto) 66.1 Lymph % (Auto) 16.7 L [place] % (Auto) 15.9 H Eos % (Auto) 1.0 L Baso % (Auto) 0.3 Neut # (Auto) 3000 Lymph # (Auto) 800 L [place] # (Auto) 700 Eos # (Auto) 0 Baso # (Auto) 0 RBC Morphology Not Reportable Poikilocytosis 1+ H Anisocytosis 2+ H Sodium Potassium Chloride Carbon Dioxide BUN Creatinine Estimated GFR BUN/Creatinine Ratio Glucose Calcium Blood Type Antibody Screen Crossmatch [facility] Medical History (Updated 07/18/22 @ 08:57 by Candelaria Ridley PA-C) 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 Easy bruisability History of pulmonary embolus (PE) Incontinence Leg swelling Lumbar hernia Neuropathy Port-A-Cath in place Rectal cancer Rectal carcinoma Retained urethral stent S/p nephrectomy Surgical History (Updated 07/18/22 @ 08:57 by Candelaria Ridley PA-C) History of low anterior resection of rectum Family History Mother Hypertension Cancer Son Hypertension Grandfather Heart disease Social History household members: family lives independently: Yes Smoking Status: Current some day smoker Tobacco: How many years used: 60 alcohol intake: current substance use type: does not use Assessment & Plan Assessment & Plan narrative: #chest pain reassuring EKG and troponin, continue GERD meds, will see how this plays out for now #Hip fracture Postop day 2 s/p repair by Dr. Guillen Some difficulty moving and pain.? Encouraged patient to work with physical therapy #Ground level fall Pt lives independently with son in detached unit.? No evidence of significant pathology other than slipping.? Will follow.? Will need PT- planning facility dc for rehab. #COPD Stable at this time.? Continue pulmonary toilet. #History of atrial fibrillation NSR today on EKG restarted eliquis yesterday per surgery - continue #History of DVT with pulmonary embolism, unprovoked Patient will be on lifelong anticoagulation. #Chronic renal failure with urostomy stable labs today draining urine ok #Hypertension Stable continue with outpatient treatment #Anemia, acute postop on top of chronic normocytic anemia acute issue suspect some demand ischemia will xfuse 2Us #Large left lower abdomen wall hernia with colostomy.? All secondary to previous rectal surgery for rectal cancer which appears to be stable no changes at this time.? #Left ureteral stricture with urostomy Patient is in process of seeing if she can get this repaired and get rid of your ostomy.? There is some chance that she will have both that surgery and hernia surgery in the near future but will have to see how things go now.? Has been put on hold.? #Depression stable on no meds.? #Esophageal reflux IV ppi and maalox Code status full DVT prophylaxis: José Miguel MDM: Deejay son Disposition.? Patient is reticent to go to skilled care facility but understands that really this is the only option for best chance at recovery. 50 minutes spent with patient, discussing with nursing and skilled care and patient's son and reviewing chart and formulating a plan and documentation Quality VTE Deep Vein Thrombosis/Pulmonary Embolism Present on Admission: No
[2022-07-18 09:35] LABS: Troponin I < 0.012 ng/mL (0.01-0.034)
--- NOTE | 2022-07-18 09:56 | PT-IP ANOTE ---
Per nursing pt to receive transfusion this AM for low H&H, not appropriate at this time, will check back in afternoon.
[2022-07-18] MEDS: AMLODIPINE 5 MG TABLET PO (09:58)
[2022-07-18] MEDS: METOPROLOL IR 25 MG TABLET 12.5 MG PO ×2 (09:58→21:29)
[2022-07-18] MEDS: APIXABAN 5 MG TABLET 2.5 MG PO ×2 (09:58→21:29)
--- NOTE | 2022-07-18 10:22 | OT.IPNOTE ---
Pt having low HH and to get transfusion of 2 units, hold OT.
[2022-07-18] MEDS: NYSTATIN POWDER 15GM 1 APPLIC TOP (10:55)
[2022-07-18] MEDS: ONDANSETRON 4 MG ODT SL (10:55)
[2022-07-18] MEDS: MAG HYDROX/ALUM/SIMETH 30 ML UDC PO (10:55)
[2022-07-18] MEDS: SODIUM CHLORIDE 0.9% FLUSH 10 ML IV ×2 (10:56→21:30)
--- NOTE | 2022-07-18 11:08 | PC.NURSE ---
Addendum entered by Chery Masterson R.N. 07/18/22 18:17: Day shift: TAR record for 15 minute vitals on second unit of blood mistimed in documentation due to system issue. 15 minute vitals were obtained at 1223 and were as charted. Original Note: Day shift: pt complaining of indigestion, heartburn, and nausea at start of shift. VSS. This RN requested an antiemetic from orthopedic PA. PA stated to contact medical provider, saying, I think she may be having an FL. This RN contacted medical provider Dr. Hernandez. Orders given. Orders implemented. See orders and TAR. Care ongoing.
[2022-07-18] MEDS: PANTOPRAZOLE 40 MG VIAL IV (11:33)
--- NOTE | 2022-07-18 13:52 | PT-IP ANOTE ---
Per nursing pt is to receive another transfusion, is not appropriate to see this afternoon for PT.
[2022-07-18 15:16] LABS: Hematocrit 27.5 % (36-46); Hemoglobin 9.1 g/dL (12.0-16.0); Mean Corpuscular HGB Conc 33.1 % (30-36); Mean Corpuscular Hemoglobin 26.8 PG (26-34); Mean Corpuscular Volume 80.8 fL (80-100); Platelet Count 194 X10^3/uL (150-400); Red Blood Cell Count 3.41 X10^6/uL (4.0-5.2); Red Cell Distribution Width 19.6 % (11.6-14.8); White Blood Cell Count 5.1 X10^3/uL (4.5-11.0)
[2022-07-18] MEDS: ONDANSETRON 4 MG/2 ML INJ IV (19:58)
[2022-07-18] MEDS: LATANOPROST 0.005% OPHTH 2.5 ML 1 DROPS EYE-BOTH (21:28)
[2022-07-19 07:00] VITALS: BP 158/69; PULSE 79; RESP 19; TEMP 36.2; O2SAT 93
[2022-07-19] MEDS: AMLODIPINE 5 MG TABLET PO (08:18)
[2022-07-19] MEDS: SODIUM CHLORIDE 0.9% FLUSH 10 ML IV ×2 (08:19→20:23)
[2022-07-19] MEDS: METOPROLOL IR 25 MG TABLET 12.5 MG PO ×2 (08:19→20:14)
[2022-07-19] MEDS: APIXABAN 5 MG TABLET 2.5 MG PO ×2 (08:19→20:14)
[2022-07-19] MEDS: OXYCODONE IR 10 MG TABLET PO ×3 (08:32→20:07)
[2022-07-19] MEDS: ALBUTEROL/IPRATROPIUM 3 ML AMPUL INH ×2 (08:35→21:37)
[2022-07-19 08:36] VITALS: PULSE 72; RESP 20; O2SAT 95
--- NOTE | 2022-07-19 09:22 | P.PN_ITS ---
Subjective Subjective Date Patient Seen: 07/19/22 Time Patient Seen: 09:22 Interval history: Pt feeling better this morning, no nausea. C/o significant pain in LLE. Did not work w/ PT yesterday d/t blood transfusions. Exam Vital Signs (past 8 hours): - 07/19/22 07:00 07/19/22 07:00 07/19/22 08:36 Temperature 97.1 F L Pulse Rate 79 72 Respiratory Rate 19 20 Blood Pressure 158/69 H Pulse Oximetry 93 95 Oxygen Delivery Method Room Air Room Air Oxygen Flow Rate 0 0 Fraction of Inspired Oxygen 21 Fraction of Inspired Oxygen 21 SaO2/FiO2 Ratio 452 Oxygen Delivery Method Room Air Oxygen Flow Rate 0 Narrative Exam Narrative: 3/5 hip flexors, quadriceps, hamstrings; 4/5 DF, PF, EHL on left. Sensation to light touch intact throughout LLE. Dressing placed intraoperatively is CDI. 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 Easy bruisability History of pulmonary embolus (PE) Incontinence Leg swelling Lumbar hernia Neuropathy Port-A-Cath in place Rectal cancer Rectal carcinoma Retained urethral stent S/p nephrectomy Surgical History (Updated 07/18/22 @ 08:57 by Candelaria Ridley PA-C) History of low anterior resection of rectum Family History Mother Hypertension Cancer Son Hypertension Grandfather Heart disease Social History household members: family lives independently: Yes Smoking Status: Current some day smoker Tobacco: How many years used: 60 alcohol intake: current substance use type: does not use Assessment & Plan Post-op Assessment and plan (1) Status post hip surgery: Assessment and Plan narrative: Eliquis should be adequate for postop VTE prophylaxis. Continue PT, will need group home prior to discharge. Weightbearing limited to 50# on left leg x 6 weeks. F/u in ortho office in 2 weeks for wound check, and in 6 weeks for repeat imaging w/ Dr Guillen. (2) Acute on chronic anemia: Assessment and Plan narrative: H/H responded appropriately to transfusions yesterday. Postoperative Procedures: Procedures Operation Date: 07/16/22 17:00 Actual Procedure Side Surgeon p ORIF Hip DHS Left Chase Guillen MD Postoperative day: 3 Quality VTE Deep Vein Thrombosis/Pulmonary Embolism Present on Admission: No
--- NOTE | 2022-07-19 10:32 | PM.DS.1 ---
History of Present Illness History of Present Illness Chief complaint: GLF, L hip Narrative: Patient is an 82-year-old female well known to me who presents with pain in her right hip.? Patient apparently was having a difficult day yesterday with nausea vomiting and diarrhea.? She was just feeling shaky and not feeling well.? She was at the end of the day around 10:30 p.m. with the last time she had diarrhea in her stoma and she was emptying that when she slipped to doing the splits.? She immediately heard a crack in her left leg and had immediate pain.? No one is in the house at this time.? She had did not have her phone and she laid for 2 hours on the ground until her son got home from his schedule.? She is had no other significant change.? She is feeling much better.? No abdominal pain.? No urinary symptoms.? Has had a history of recurrent UTIs.? She is having no diarrhea at this time.? She is had no chest pain shortness to breath nor any arrhythmias.? She feels like her AFib has been in good control.? No other change.? Otherwise feeling well. {from Dr. Grover's H&P 07/16/22} Discharge Providers Provider Date of admission: 07/16/22 03:13 Discharge Date: 07/19/22 Primary care physician: Eric Grover MD Consults: 07/16/22 03:26 Consult to Orthopedic Surgery Urgent Comment: Consulting Provider: Chase Guillen Reason for consultation: left hip Has provider been notified: Yes 07/16/22 18:46 Consult to Discharge Planning Routine Comment: Consult to Physical Therapy Evaluate & Treat Comment: Physician Instructions: Evaluate and Treat 07/17/22 10:27 Consult to Occupational Therapy Evaluate & Treat Comment: Physician Instructions: Evaluate and treat Discharge provider: Mike Zheng MD Summary Hospital Course Discharge Diagnosis: 1. Trochanteric fracture left femur, status post ground level fall 2. Ground level fall, due to mechanical issue (tripped) 3. Status post open reduction internal fixation left femur fracture 4. Acute blood loss anemia secondary to surgical procedure 5. 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 Atrial fibrillation 7. Chronic anticoagulated with Eliquis for stroke risk reduction in the setting of atrial fibrillation, as well as history of DVT with pulmonary embolism 8. History of DVT, with pulmonary embolism, chronically anticoagulated 9. Chronic renal failure stage III A 10. Left ureteral stricture status post urostomy placement 11. Depression 12. GERD 13. Rectal cancer status post low anterior resection 14. Status post nephrectomy 15. Large left sided ventral hernia secondary to previous abdominal surgeries Hospital Course: Patient was admitted from the emergency department as above after presenting after her fall with the obvious fracture of the femur/hip. She was seen in consultation by Orthopedic surgery. Her anticoagulation was held and she underwent surgery on July 16, 2022. She had successful repair of a fracture. She was up and around physical therapy and felt to progress enough to be stable for discharge to snf to continue her postoperative recovery and rehabilitation. She experienced some acute blood loss with anemia as a result of her surgical intervention and require transfusion. She had appropriate response to red blood cell transfusion and no evidence of active bleeding was present She had her anticoagulation restarted after she was felt to be stable postoperatively. There is no evidence of recurrent DVT pulmonary embolism etcetera. She will remain on anticoagulation which will provide protection against additional VTE this setting of this orthopedic intervention as well as for stroke risk reduction Patient's other medical issues were stable Patient did have issues with pain control. Apparently patient is chronically on pain medication and required larger than expected doses of narcotics to control her pain. However pain was adequately controlled with oxycodone orally prior to discharge Status at Discharge Cognitive/behavioral status at discharge: oriented Functional status at discharge: uses cane/walker Overall status at discharge: patient is progressing back to baseline Time Spent with Patient Time spent: Greater than 30 minutes Exam Vital Signs (past 8 hours): - 07/19/22 07:00 07/19/22 07:00 07/19/22 08:36 Temperature 97.1 F L Pulse Rate 79 72 Respiratory Rate 19 20 Blood Pressure 158/69 H Pulse Oximetry 93 95 Oxygen Delivery Method Room Air Room Air Oxygen Flow Rate 0 0 Fraction of Inspired Oxygen 21 Fraction of Inspired Oxygen 21 SaO2/FiO2 Ratio 452 Oxygen Delivery Method Room Air Oxygen Flow Rate 0 Objective Labs 07/18/22 14:40 07/18/22 04:15 Labs: Laboratory Results - last 24 hr 07/16/22 07/18/22 18:20 14:40 WBC 5.1 RBC 3.41 L Hgb 9.1 L Hct 27.5 L MCV 80.8 D MCH 26.8 MCHC 33.1 RDW 19.6 H Plt Count 194 Blood Type A Positive Antibody Screen Negative Crossmatch See Detail [facility] Medical History (Updated 07/19/22 @ 10:45 by Mike Zheng MD) Abnormal mammogram of right breast Allergic reaction Anticoagulated Chronic renal disease, stage 3, moderately decreased glomerular filtration rate (GFR) between 30-59 mL/min/1.73 square meter Colitis with rectal bleeding 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 Easy bruisability Incontinence Leg swelling Lumbar hernia Neuropathy 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 Pulmonary embolism Rectal cancer Rectal carcinoma Retained urethral stent S/p nephrectomy Unspecified essential hypertension Surgical History History of low anterior resection of rectum Family History Mother Hypertension Cancer Son Hypertension Grandfather Heart disease Social History household members: family lives independently: Yes Smoking Status: Current some day smoker Tobacco: How many years used: 60 alcohol intake: current substance use type: does not use Discharge Assessment & Plan Assessment and Plan Plan of Treatment: Discharge to snf when bed available Discharge Plan Discharge Plan Patient Disposition: SNF Transfer to: [facility] Consult as needed: Dental, Hearing, Mental health, Podiatry and Vision Discharge orders & Medications Prescriptions: New oxycodone 10 mg Tablet 10 mg PO Q4H PRN (Reason: Pain, Moderate (4-6)) Qty: 90 0RF Continued latanoprost 0.005 % drops 1 drp EYE-BOTH BEDTIME ipratropium-albuterol 0.5 mg-3 mg(2.5 mg base)/3 mL solution for nebulization 3 ml INHALATION 4XD Patient Comments: USE 1 VIAL VIA NEBULIZER FOUR TIMES DAILY metoprolol tartrate 25 mg Tablet 12.5 mg PO BID Eliquis 2.5 mg Tablet 2.5 mg PO BID amlodipine [Norvasc] 5 mg tablet 5 mg PO QPM Patient Comments: patient states takes at night Changed trazodone 50 mg tablet 50 mg PO BEDTIME Qty: 30 0RF Patient Comments: TAKE 1/2 TABLET BY MOUTH AT BEDTIME. MAY INCREASE BY 1/2 TABLET A NIGHT EVERY WEEK IF NO IMPROVEMENT IN SLEEP. PATIENT STATES SHE TAKES THREE TABLETS WHEN SHE TAKES THIS MED. Follow up/Referrals: Chase Guillen MD [Physician] - 2 Weeks (Schedule wound check appt w/ ortho PA in 2 weeks. Schedule f/u appt w/ Dr Guillen for repeat imaging in 6 weeks. Pt to remain weightbearing to max 50 pounds on left leg until f/u w/ Dr Guillen.) Eric Grover MD [Primary Care Provider] - Discharge Health Status Multidrug resistant organism: No MDRO Precautions: [place] Diet/Activity/Treatments Diet: Diet as Tolerated Liquid consistency: Normal/Thin Food texture: Regular Other treatments: Dressing/Wound care: -Keep Aquacell dressing in place until postoperative follow-up office visit. -Okay to shower. Keep wound out of direct water stream. No soaking or submerging until all the scabs fall off (approximately 6 weeks). -No lotions, ointments, or scar creams directly to the incision until the wound is healed (4-6 weeks), -Please call the office if dressing becomes wet, soiled, or saturated. Activities: partial weight-bearing left le lb limit weight-bearing on left lower extremity -Continue with home exercises as directed by your physical therapist. -Elevate ?toes above the nose if you have significant swelling in your lower leg. (A wedge pillow is easiest.) -Ice your incision as needed for pain/inflammation/swelling. Protect your skin with a folded pillowcase. Follow-up: -Follow-up with your surgeon or PA in the office in 10-14 days after surgery. -Follow-up with your surgeon 6 weeks postoperatively. Call the office if you have chest pain, shortness of breath, significant swelling that will not resolve with elevating, fever over 101?, significantly worsening pain, or are concerned you might need to go to the Emergency Room. [facility]: [phone] Skin/Wound/Dressing Care Report to your healthcare provider any signs of infection, such as:: chills, fever, night sweats, unusual drainage and unusual redness [facility] Rehabilitation [facility] Reason for rehabilitation: Post-operative therapy Rehab type: Physical therapy and Occupational therapy Visit Report/Discharge Packet Instructions: DI for Open Reduction Internal Fixation Surgery Stand Alone Forms: Patient Portal/API, Surgery Discharge Discharge Data Primary Care Provider: Eric Grover VTE Deep Vein Thrombosis/Pulmonary Embolism Present on Admission: No
--- NOTE | 2022-07-19 10:56 | PT.IPTN ---
Current Diagnoses Anemia, unspecified (07/16/22) Fracture of unspecified part of neck of left femur, initial encounter for closed fracture (07/16/22) Other specified postprocedural states (07/16/22) Surgery Performed Operation Date: 07/16/22 17:00 Actual Procedures p ORIF Hip DHS(Left) - Chase Guillen MD Physical Therapy Treatment Note M2 PT-IP Current Condition Start: 07/17/22 11:33 Freq: Status: Active Protocol: Document 07/17/22 11:34 BC (Rec: 07/17/22 11:51 BC [id number]) Physical Therapy Current Condition Current Condition Evaluation Date 07/17/22 Treatment Diagnosis L hip ORIF due to fall; difficulty with ambulation Onset Date 07/16/22 M3 PT-IP Subjective Start: 07/17/22 11:33 Freq: Status: Active Protocol: Document 07/19/22 10:50 ES (Rec: 07/19/22 10:56 ES [id number]) Subjective Physical Therapy Visit Type Type Treatment Note Visit Start Time 09:00 Visit Stop Time 09:38 Total Visit Minutes 38 Number of ALUMINUM MOLDER Visits 1 Physical Therapy Visit Comments Patient Comments Patient reported feeling slightly better today but still quite painful. Patient agreed to try some exercises in bed but declined to try and get out of bed. Therapy Pain Assessment Pain When Pain Assessed During Exercise Pain Present Pain Present Pain Reported Location left hip Intensity 9 Scale Used Numeric (0 - 10) Description With Movement Pain Behaviors Calling Out,Facial Grimacing, Guarding,Holding Area,Wincing Pain Management Techniques Apply Cold,Distraction, Modification of Treatment, Timing of Activity with Medications M4 PT-IP Mobility and Gait Start: 07/17/22 11:33 Freq: Status: Active Protocol: Document 07/19/22 10:50 ES (Rec: 07/19/22 10:56 ES [id number]) PT-Transfer Assessment Comments Mobility Comments Patient declined to perform mobility tasks with PT. Gait Assessment Comments Gait Comments Unable Stair Climbing Assessment Comments Stair Climbing Comments Unable PT-Balance Assessment Comments Other Balance Tests/Deviations/Treatment Unable to assess : M5 PT-IP Objective Assessments Start: 07/17/22 11:33 Freq: Status: Active Protocol: Document 07/17/22 11:34 BC (Rec: 07/17/22 11:51 BC [id number]) Orientation Orientation/Cognition Level of Alertness Alert Orientation Name,Date,Place,Situation Language Function Ability No Deficits Noted Safety Awareness Understands Safety Issues Memory Description No Deficits Noted Gross Range of Motion Lower Extremity ROM Assessment Left Impaired Impairments L hip AAROM is significantly limited by pain. Hip flx ~0-15 deg and hip abd ~0-5 deg BLE ankle and RLE knee AROM WNLs Strength Lower Extremity Strength Assessment Left Impaired Hip 2/5 Knee 3/5 Ankle 3/5 Comments Strength Comments RLE functionally demonstrated at ~4 to 5/5 Coordination Assessment Assessment Coordination Comments Tremors throughout all 4 extremities noted and increasing with pain. Sensation Assessment Sensation Gross Sensation Right LE Impaired,Left LE Impaired Sensation Description Tingling Comments Sensation Comments Hx of neuropathy BLE lower legs. Muscle Tone Muscle Tone WNL Yes M6 PT-IP Treatment Start: 07/17/22 11:33 Freq: Status: Active Protocol: Document 07/19/22 10:50 ES (Rec: 07/19/22 10:56 ES [id number]) Physical Therapy Treatment Exercises Exercises Ankle Pumps,Gluteal Sets,Quad Sets,Heel Slides,Supine Hip Abduction Other Treatments Other Treatment Performed Education on importance of participation in therapy to address weakness, stiffness, and difficulty with mobility. M7 PT-IP Assessment and Plan Start: 07/17/22 11:33 Freq: Status: Active Protocol: Document 07/19/22 10:50 ES (Rec: 07/19/22 10:56 ES [id number]) PT Summary Assessment and Plan Potential Rehabilitation Potential Fair Status of Condition at Evaluation Evolving Summary Impairments Pain,ROM,Strength,Balance,Bed Mobility,Transfers,Gait, Activity Tolerance Progress Towards Goals Slow Progress due to Pain Assessment Summary Patient continues to have poor activity tolerance due to pain level despite having received pain meds prior to treatment. She was able to perform some LE ex's with assistance with limited ROM. She will need SNF placement for further rehab when medically stable to transfer from unit and pain is controlled. Goals Bed Mobility Goal Moderate Assistance Transfer Goal Moderate Assistance Gait Goal Moderate Assistance Gait Distance 50 Other Goals Ascend/descend 4 steps with railing and mod A. Days to Meet Goals 5 Frequency of Treatment Frequency Of Treatment Twice a Day Treatment Plan Physical Therapy Treatment Plan Bed Mobility Training,Transfer Training,Gait Training, Therapeutic Exercise,Balance Retraining,Post Op Education, Discharge Planning, Neuromuscular Re-ed, Coordination Retraining Other Recommendations and Next Treatment Ther ex, sit EOB/transfer OOB Focus as able. Weight Bearing Status Weight Bearing Status Partial Weight Bearing Allowed Weight Bearing Amount (enter % LLE 50lb weight bearing or #) (%) restriction Recommendations To Nursing Amount of Assist Needed PT/OT Assist Only Discharge Recommendations PT Discharge Recommendations SNF Rehab Transportation Needs at Discharge Stretcher/Ambulance
--- NOTE | 2022-07-19 11:54 | P.PN_ITS ---
Subjective Subjective Date Patient Seen: 07/19/22 Time Patient Seen: 11:54 Interval history: Patient awake and alert. Still complaining of intermittent pain although says the oxycodone does help with her pain Has not really been up out of bed no weight-bearing had some basic movement activities with physical therapy only. This is in part due to blood transfu sions that she required yesterday She agree she needs to go to [place] [facility] prior to going home but does not feel like she is ready to go today No new complaints or issues Vital signs have been stable just a bit hypertensive Exam Vital Signs (past 8 hours): - 07/19/22 07:00 07/19/22 07:00 07/19/22 08:36 Temperature 97.1 F L Pulse Rate 79 72 Respiratory Rate 19 20 Blood Pressure 158/69 H Pulse Oximetry 93 95 Oxygen Delivery Method Room Air Room Air Oxygen Flow Rate 0 0 Fraction of Inspired Oxygen 21 Fraction of Inspired Oxygen 21 SaO2/FiO2 Ratio 452 Oxygen Delivery Method Room Air Oxygen Flow Rate 0 Objective Labs 07/18/22 14:40 07/18/22 04:15 Labs: Laboratory Results - last 24 hr 07/16/22 07/18/22 18:20 14:40 WBC 5.1 RBC 3.41 L Hgb 9.1 L Hct 27.5 L MCV 80.8 D MCH 26.8 MCHC 33.1 RDW 19.6 H Plt Count 194 Blood Type A Positive Antibody Screen Negative Crossmatch See Detail [facility] Medical History (Updated 07/19/22 @ 10:45 by Mike Zheng MD) Abnormal mammogram of right breast Allergic reaction Anticoagulated Chronic renal disease, stage 3, moderately decreased glomerular filtration rate (GFR) between 30-59 mL/min/1.73 square meter Colitis with rectal bleeding 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 Easy bruisability Incontinence Leg swelling Lumbar hernia Neuropathy 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 Postop day 3 after fixation fracture left hip/femur-patient is still to real ly do much of anything with physical therapy. I think it is too early to discharge her to [place] [facility] without some initiation of more aggressive physical therapy even though she has limitations (weight-bearing on left leg limited, etcetera) postoperatively. Would like this to start in the hospital rather than in [facility] [facility] so will plan to keep her here today 2. Acute blood loss anemia-responded appropriately to transfusion. Blood counts are stable as of this morning. No evidence of bleeding at this time. Okay to continue with Eliquis for VTE prophylaxis and stroke risk reduction in the setting of atrial fibrillation, which is patient's chronic medication 3. Atrial fibrillation-no issues with her rate or rhythm at this point 4. Status post nephrectomy with urostomy-draining urine without difficulty. Labs yesterday unremarkable. No issues. 5. Hypertension-blood pressure bit elevated but not in a severe fashion to be overly concerning. No change in medication or intervention at this time Overall patient is improved. She is got a complicated fracture that has limited her recovery to some degree. She also has complicated underlying medical issues that have interfered with her recovery. I think today is too early to send her to [facility]. I would like her to work with physical therapy more aggressively before discharge to [facility] She maybe ready for discharge as early as tomorrow and certainly by Thursday, if not tomorrow. Quality VTE Deep Vein Thrombosis/Pulmonary Embolism Present on Admission: No
[2022-07-19] MEDS: HYDROMORPHONE 1 MG INJ 0.2 MG IV (12:37)
--- NOTE | 2022-07-19 13:36 | PT.IPTN ---
Current Diagnoses Anemia, unspecified (07/16/22) Fracture of unspecified part of neck of left femur, initial encounter for closed fracture (07/16/22) Other specified postprocedural states (07/16/22) Surgery Performed Operation Date: 07/16/22 17:00 Actual Procedures p ORIF Hip DHS(Left) - Chase Guillen MD Physical Therapy Treatment Note M2 PT-IP Current Condition Start: 07/17/22 11:33 Freq: Status: Active Protocol: Document 07/17/22 11:34 BC (Rec: 07/17/22 11:51 BC [id number]) Physical Therapy Current Condition Current Condition Evaluation Date 07/17/22 Treatment Diagnosis L hip ORIF due to fall; difficulty with ambulation Onset Date 07/16/22 M3 PT-IP Subjective Start: 07/17/22 11:33 Freq: Status: Active Protocol: Document 07/19/22 13:30 ES (Rec: 07/19/22 13:36 ES [id number]) Subjective Physical Therapy Visit Type Type Treatment Note Visit Start Time 12:55 Visit Stop Time 13:26 Total Visit Minutes 31 Number of MULTIPLE RESAW OPERATOR Visits 1 Physical Therapy Visit Comments Patient Comments Patient received IV dilaudid prior to treatment and willing to try to get up to EOB. Therapy Pain Assessment Pain When Pain Assessed During Mobility Pain Present Pain Present Pain Reported Location left hip Description With Movement Pain Behaviors Facial Grimacing,Guarding, Holding Area,Wincing Pain Management Techniques Apply Cold,Distraction, Modification of Treatment,Re- positioning,Timing of Activity with Medications M4 PT-IP Mobility and Gait Start: 07/17/22 11:33 Freq: Status: Active Protocol: Document 07/19/22 13:30 ES (Rec: 07/19/22 13:36 ES [id number]) PT-Bed Mobility Assessment Supine to Sit Supine to Sit Moderate Assistance,Head of Bed Elevated,Bedrails Sit to Supine Sit to Supine Moderate Assistance,Head of Bed Elevated,Bedrails Scooting Scooting to Edge of Bed Maximum Assistance Scooting Up and Down in Bed Maximum Assistance PT-Transfer Assessment Comments Mobility Comments Did not attempt transfer due to pain levels and patient anxiety/fear along with weakness. Gait Assessment Comments Gait Comments Unable Stair Climbing Assessment Comments Stair Climbing Comments Unable PT-Balance Assessment Sitting Balance and Reactions Static Sitting Balance Ability Fair M5 PT-IP Objective Assessments Start: 07/17/22 11:33 Freq: Status: Active Protocol: Document 07/17/22 11:34 BC (Rec: 07/17/22 11:51 BC [id number]) Orientation Orientation/Cognition Level of Alertness Alert Orientation Name,Date,Place,Situation Language Function Ability No Deficits Noted Safety Awareness Understands Safety Issues Memory Description No Deficits Noted Gross Range of Motion Lower Extremity ROM Assessment Left Impaired Impairments L hip AAROM is significantly limited by pain. Hip flx ~0-15 deg and hip abd ~0-5 deg BLE ankle and RLE knee AROM WNLs Strength Lower Extremity Strength Assessment Left Impaired Hip 2/5 Knee 3/5 Ankle 3/5 Comments Strength Comments RLE functionally demonstrated at ~4 to 5/5 Coordination Assessment Assessment Coordination Comments Tremors throughout all 4 extremities noted and increasing with pain. Sensation Assessment Sensation Gross Sensation Right LE Impaired,Left LE Impaired Sensation Description Tingling Comments Sensation Comments Hx of neuropathy BLE lower legs. Muscle Tone Muscle Tone WNL Yes M6 PT-IP Treatment Start: 07/17/22 11:33 Freq: Status: Active Protocol: Document 07/19/22 10:50 ES (Rec: 07/19/22 10:56 ES [id number]) Physical Therapy Treatment Exercises Exercises Ankle Pumps,Gluteal Sets,Quad Sets,Heel Slides,Supine Hip Abduction Other Treatments Other Treatment Performed Education on importance of participation in therapy to address weakness, stiffness, and difficulty with mobility. M7 PT-IP Assessment and Plan Start: 07/17/22 11:33 Freq: Status: Active Protocol: Document 07/19/22 13:30 ES (Rec: 07/19/22 13:36 ES [id number]) PT Summary Assessment and Plan Potential Rehabilitation Potential Fair Status of Condition at Evaluation Evolving Summary Impairments Pain,ROM,Strength,Balance,Bed Mobility,Transfers,Gait, Activity Tolerance Progress Towards Goals Slow Progress due to Pain Assessment Summary Patient was able to transfer to EOB with 1-person A this visit, though required extra time to complete and assistance with moving LLE in small increments at a time. She remains well below her baseline function. Goals Bed Mobility Goal Moderate Assistance Transfer Goal Moderate Assistance Gait Goal Moderate Assistance Gait Distance 50 Other Goals Ascend/descend 4 steps with railing and mod A. Days to Meet Goals 5 Frequency of Treatment Frequency Of Treatment Twice a Day Treatment Plan Physical Therapy Treatment Plan Bed Mobility Training,Transfer Training,Gait Training, Therapeutic Exercise,Balance Retraining,Post Op Education, Discharge Planning, Neuromuscular Re-ed, Coordination Retraining Other Recommendations and Next Treatment Progress ther ex, transfers Focus Weight Bearing Status Weight Bearing Status Partial Weight Bearing Allowed Weight Bearing Amount (enter % LLE 50lb weight bearing or #) (%) restriction Recommendations To Nursing Amount of Assist Needed 2 Person Assist Discharge Recommendations PT Discharge Recommendations SNF Rehab Transportation Needs at Discharge Stretcher/Ambulance
--- NOTE | 2022-07-19 13:44 | CM.DPNOTE ---
Discharge Planning Note: Patient progressing slowly with PT, not standing yet, see note. Dr Zheng in. Spoke with Mary at [facility], patient not ready for discharge. She can accept patient then on Thursday, not Thursday. Plan: When medically cleared, discharge to [facility] SNF Rehab. Provide updates to balaji Vila. Angie Bateman RN/DCP
--- NOTE | 2022-07-19 14:24 | PC.NURSE ---
Rec'd report from Mike MUNIZ on floor care Pt moving out of ICU to 223. Pt restful, eyes closed, RR even and unlaboured.
[2022-07-19 20:12] VITALS: BP 152/53; PULSE 72; RESP 18; TEMP 36.8; O2SAT 96
[2022-07-19] MEDS: ONDANSETRON 4 MG ODT SL (20:23)
[2022-07-19] MEDS: LATANOPROST 0.005% OPHTH 2.5 ML 1 DROPS EYE-BOTH (20:24)
[2022-07-19 21:20] VITALS: BP 152/53; PULSE 72; RESP 18; TEMP 36.8; O2SAT 96
[2022-07-20] MEDS: OXYCODONE IR 10 MG TABLET PO ×2 (02:28→08:44)
[2022-07-20 03:04] VITALS: BMI 34.7
[2022-07-20 07:00] VITALS: BP 136/53; PULSE 74; RESP 19; TEMP 36.4; O2SAT 95
[2022-07-20 07:24] VITALS: PULSE 71; RESP 18; O2SAT 97
[2022-07-20] MEDS: ALBUTEROL/IPRATROPIUM 3 ML AMPUL INH ×2 (07:24→22:04)
[2022-07-20] MEDS: AMLODIPINE 5 MG TABLET PO (08:43)
[2022-07-20] MEDS: APIXABAN 5 MG TABLET 2.5 MG PO ×2 (08:44→21:18)
[2022-07-20] MEDS: METOPROLOL IR 25 MG TABLET 12.5 MG PO ×2 (08:44→21:17)
[2022-07-20] MEDS: SODIUM CHLORIDE 0.9% FLUSH 10 ML IV ×2 (08:45→22:43)
--- NOTE | 2022-07-20 09:34 | PM.PN.1 ---
Subjective Subjective Date Patient Seen: 07/20/22 Time Patient Seen: 09:34 Interval history: Patient very hesitant about participating with physical therapy due to pain and anxiety. Very limited activity yesterday with [facility] unable to accept patient until Thursday Sleeping fairly soundly until I startle her awake this morning much like I did yesterday Exam Vital Signs (past 8 hours): - 07/20/22 07:24 07/20/22 07:00 Temperature 97.6 F Pulse Rate 71 74 Respiratory Rate 18 19 Blood Pressure 136/53 L Pulse Oximetry 97 95 Oxygen Delivery Method Room Air Oxygen Flow Rate 0 0 Fraction of Inspired Oxygen 21 Fraction of Inspired Oxygen 21 SaO2/FiO2 Ratio 461 Oxygen Delivery Method Room Air Oxygen Flow Rate 0 Objective Labs 07/18/22 14:40 07/18/22 04:15 [facility] Medical History (Updated 07/19/22 @ 10:45 by Mike Zheng MD) Abnormal mammogram of right breast Allergic reaction Anticoagulated Chronic renal disease, stage 3, moderately decreased glomerular filtration rate (GFR) between 30-59 mL/min/1.73 square meter Colitis with rectal bleeding 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 Easy bruisability Incontinence Leg swelling Lumbar hernia Neuropathy 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 Postop day 4 after fixation fracture left hip/femur-patient very hesitant to participate with physical therapy due to various issues including pain and anxiety. She told me yesterday and again this morning that the pain meds do help with pain. At this point [facility] when the facility can accept her 2. Acute blood loss anemia-responded appropriately to transfusion. No evidence of active bleeding. Did not choose to repeat hemoglobin or hematocrit at this point 3. Atrial fibrillation-no issues with her rate or rhythm at this point 4. Status post nephrectomy with urostomy-draining urine without difficulty. Continues to be stable. 5. Hypertension-blood pressure somewhat better over the last 24 hours. No change in plan Overall patient is improved. [facility]. Quality VTE Deep Vein Thrombosis/Pulmonary Embolism Present on Admission: No
[2022-07-20] MEDS: ACETAMINOPHEN 325 MG TABLET 650 MG PO ×2 (12:48→18:18)
[2022-07-20] MEDS: GABAPENTIN 300 MG CAPSULE PO (12:48)
--- NOTE | 2022-07-20 14:09 | CM.DPNOTE ---
Discharge Planning Note: Met with patient, she states she is still weak and in pain. She is POD 4 today. (L ORIF on 07/16). She only dangled on bed with PT yesterday. No PT available today, Thursday. Will need PT in am. [facility] can accept tomorrow. Plan: Potentially discharge Thursday to [facility] if indicated by ortho. She will need BLS transport, PASSR done, BLS form started. Angie Bateman RN/DCP
[2022-07-20] MEDS: OXYCODONE IR 5 MG TABLET PO ×2 (17:34→22:40)
[2022-07-20] MEDS: ONDANSETRON 4 MG ODT SL (18:19)
[2022-07-20 19:40] VITALS: BP 123/50; PULSE 65; RESP 16; TEMP 35.9; O2SAT 97
[2022-07-20] MEDS: LATANOPROST 0.005% OPHTH 2.5 ML 1 DROPS EYE-BOTH (22:42)
[2022-07-21] MEDS: OXYCODONE IR 5 MG TABLET PO ×3 (06:25→14:48)
[2022-07-21] MEDS: ACETAMINOPHEN 325 MG TABLET 650 MG PO (06:25)
[2022-07-21] MEDS: ALBUTEROL/IPRATROPIUM 3 ML AMPUL INH ×2 (07:36→21:34)
[2022-07-21 07:39] VITALS: PULSE 72; RESP 18; O2SAT 97
[2022-07-21 08:00] VITALS: BP 146/48; PULSE 73; RESP 18; TEMP 36.1; O2SAT 97
--- NOTE | 2022-07-21 08:43 | PM.DS.1 ---
History of Present Illness History of Present Illness Date Patient Seen: 07/21/22 Time Patient Seen: 08:43 Date of Onset of Symptoms: 07/15/22 Chief complaint: GLF, L hip Narrative: Patient is an 82-year-old female well known to me who presents with pain in her right hip. Patient apparently was having a difficult day yesterday with nausea vomiting and diarrhea. She was just feeling shaky and not feeling well. She was at the end of the day around 10:30 p.m. with the last time she had diarrhea in her stoma and she was emptying that when she slipped to doing the splits. She immediately heard a crack in her left leg and had immediate pain. No one is in the house at this time. She had did not have her phone and she laid for 2 hours on the ground until her son got home from his schedule. She is had no other significant change. She is feeling much better. No abdominal pain. No urinary symptoms. Has had a history of recurrent UTIs. She is having no diarrhea at this time. She is had no chest pain shortness to breath nor any arrhythmias. She feels like her AFib has been in good control. No other change. Otherwise feeling well. Discharge Providers Provider Date of admission: 07/16/22 03:13 Discharge Date: 07/21/22 Primary care physician: Eric Grover MD Consults: 07/16/22 03:26 Consult to Orthopedic Surgery Urgent Comment: Consulting Provider: Chase Guillen Reason for consultation: left hip Has provider been notified: Yes 07/16/22 18:46 Consult to Discharge Planning Routine Comment: Consult to Physical Therapy Evaluate & Treat Comment: Physician Instructions: Evaluate and Treat 07/17/22 10:27 Consult to Occupational Therapy Evaluate & Treat Comment: Physician Instructions: Evaluate and treat Discharge provider: Eric Grover MD Summary Hospital Course Discharge Diagnosis: Left hip fracture acute blood loss anemia DVT with history of PE new line atrial fibrillation hypertension Hospital Course: Left hip fracture. Patient was admitted and taken to surgery by Dr. Guillen. Patient had good recovery but was slow to mobilize. Anxious about pain. Pain control was adequate she felt but she constantly feels it. Was limited in her physical therapy. Patient has slowly improved and was discharged to care home for rehab. Will follow-up with orthopedist Blood-loss anemia. Secondary to surgery. No major issues. No evidence of other bleeding. Stable at this time. Would recommend repeat H&H in 1 week. History of DVT with PE. No other issues. Was held with her José Miguel on day of surgery and was started back. She seems to be stable without significant issue. Patient feeling well otherwise with no shortness of breath no leg pain Atrial fibrillation. Stable throughout course. No major issue Hypertension. Normal. Blood pressure was excellent will follow-up as outpatient 40 minutes spent on discharge discussion with patient discussion with social service dictation orders Exam Vital Signs (past 8 hours): - 07/21/22 07:39 07/21/22 08:00 Temperature 96.9 F L Pulse Rate 72 73 Respiratory Rate 18 18 Blood Pressure 146/48 H Pulse Oximetry 97 97 Oxygen Delivery Method Room Air Oxygen Flow Rate 0 0 Fraction of Inspired Oxygen 21 Fraction of Inspired Oxygen 21 SaO2/FiO2 Ratio 461 Oxygen Delivery Method Room Air Oxygen Flow Rate 0 Narrative Exam Narrative: Alert elderly female in no acute distress Lungs are clear heart is regular rate and rhythm Objective Labs 07/18/22 14:40 07/18/22 04:15 [facility] Medical History (Updated 07/19/22 @ 10:45 by Mike Zheng MD) Abnormal mammogram of right breast Allergic reaction Anticoagulated Chronic renal disease, stage 3, moderately decreased glomerular filtration rate (GFR) between 30-59 mL/min/1.73 square meter Colitis with rectal bleeding 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 Easy bruisability Incontinence Leg swelling Lumbar hernia Neuropathy 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 Pulmonary embolism Rectal cancer Rectal carcinoma Retained urethral stent S/p nephrectomy Unspecified essential hypertension Surgical History History of low anterior resection of rectum Family History Mother Hypertension Cancer Son Hypertension Grandfather Heart disease Social History household members: family lives independently: Yes Smoking Status: Current some day smoker Tobacco: How many years used: 60 alcohol intake: current substance use type: does not use Discharge Assessment & Plan Assessment and Plan Assessment: Left hip fracture improving Plan of Treatment: [facility] Discharge Plan Discharge Plan Patient Disposition: SNF Transfer to: [facility] Under care of provider: facility provider Consult as needed: Dental, Hearing, Mental health, Podiatry and Vision Discharge orders & Medications Prescriptions: New oxycodone 10 mg Tablet 10 mg PO Q4H PRN (Reason: Pain, Moderate (4-6)) Qty: 30 0RF Continued latanoprost 0.005 % drops 1 drp EYE-BOTH BEDTIME ipratropium-albuterol 0.5 mg-3 mg(2.5 mg base)/3 mL solution for nebulization 3 ml INHALATION 4XD Patient Comments: USE 1 VIAL VIA NEBULIZER FOUR TIMES DAILY metoprolol tartrate 25 mg Tablet 12.5 mg PO BID Eliquis 2.5 mg Tablet 2.5 mg PO BID amlodipine [Norvasc] 5 mg tablet 5 mg PO QPM Patient Comments: patient states takes at night Changed trazodone 50 mg tablet 50 mg PO BEDTIME Qty: 30 0RF Patient Comments: TAKE 1/2 TABLET BY MOUTH AT BEDTIME. MAY INCREASE BY 1/2 TABLET A NIGHT EVERY WEEK IF NO IMPROVEMENT IN SLEEP. PATIENT STATES SHE TAKES THREE TABLETS WHEN SHE TAKES THIS MED. Follow up/Referrals: Chase Guillen MD [Physician] - 2 Weeks (Schedule wound check appt w/ ortho PA in 2 weeks. Schedule f/u appt w/ Dr Guillen for repeat imaging in 6 weeks. Pt to remain weightbearing to max 50 pounds on left leg until f/u w/ Dr Guillen.) Eric Grover MD [Primary Care Provider] - Discharge Health Status Multidrug resistant organism: No MDRO Precautions: [place] Diet/Activity/Treatments Diet: Diet as Tolerated Liquid consistency: Normal/Thin Food texture: Regular Other treatments: Dressing/Wound care: -Keep Aquacell dressing in place until postoperative follow-up office visit. -Okay to shower. Keep wound out of direct water stream. No soaking or submerging until all the scabs fall off (approximately 6 weeks). -No lotions, ointments, or scar creams directly to the incision until the wound is healed (4-6 weeks), -Please call the office if dressing becomes wet, soiled, or saturated. Activities: partial weight-bearing left le lb limit weight-bearing on left lower extremity -Continue with home exercises as directed by your physical therapist. -Elevate ?toes above the nose if you have significant swelling in your lower leg. (A wedge pillow is easiest.) -Ice your incision as needed for pain/inflammation/swelling. Protect your skin with a folded pillowcase. Follow-up: -Follow-up with your surgeon or PA in the office in 10-14 days after surgery. -Follow-up with your surgeon 6 weeks postoperatively. Call the office if you have chest pain, shortness of breath, significant swelling that will not resolve with elevating, fever over 101?, significantly worsening pain, or are concerned you might need to go to the Emergency Room. [facility] Orthopedics: [phone] Skin/Wound/Dressing Care Report to your healthcare provider any signs of infection, such as:: chills, fever, night sweats, unusual drainage and unusual redness Special Rehabilitation Services Reason for rehabilitation: Post-operative therapy Rehab type: Physical therapy and Occupational therapy Visit Report/Discharge Packet Instructions: DI for Open Reduction Internal Fixation Surgery Stand Alone Forms: Patient Portal/API, Surgery Discharge Discharge Data Primary Care Provider: Eric Grover VTE Deep Vein Thrombosis/Pulmonary Embolism Present on Admission: No
--- NOTE | 2022-07-21 08:58 | CM.DPC ---
Addendum entered by THERESE Chung 07/21/22 12:23: ADD: Per [facility], they have one pt test positive for COVID and is quarantined and after checking other residents they have a few more that are positive but currently asyptomatic but due to staffing issues they cannot accept pt today but will have staff and availabilty for tomorrow if pt wants to still come. BREANA met bedside with pt and updated and she confirms she still wants to d/c to [facility] to stay in town close to family and does not want another SNF. BREANA cancelled BLS transport and rescheduled for 1100 tomorrow Tu07/22 to [facility]. BREANA updated manager program and RN. BREANA spoke to [facility] admissions and they have open beds and likely could accept as back up tomorrow if needed, BREANA faxed new referral to review as back up. BF Original Note: DCP Discharge SNF Per MD, pt is medically stable to d/c to SNF today and in agreement that BLS transport needed. BLS form signed by . BREANA called [facility] and confirmed they can accept today and preference is 1300. BREANA called [facility] and scheduled 1300 transport for today and put BLS form with attached facesheet and PT note on pt chart. BREANA called pt's son Julito and updated on d/c to [facility] today at 1300 and he remains in agreement and appreciative and will follow up with pt today after he is off work. BREANA faxed PASRR, signed med list, script, MD orders to [facility] to review. RN kindly getting updated COVID swab now. BREANA updated manager program and [employer]. Plan: Patient to d/c to [facility] rehab today via BLS at 1300 before safe return home. THERESE Chung
[2022-07-21] MEDS: AMLODIPINE 5 MG TABLET PO (10:19)
[2022-07-21] MEDS: APIXABAN 5 MG TABLET 2.5 MG PO ×2 (10:19→22:52)
[2022-07-21] MEDS: METOPROLOL IR 25 MG TABLET 12.5 MG PO ×2 (10:19→22:53)
[2022-07-21] MEDS: SODIUM CHLORIDE 0.9% FLUSH 10 ML IV ×3 (10:21→21:43)
[2022-07-21 10:41] LABS: COVID19 -Nasal RAPID Negative (Negative)
--- NOTE | 2022-07-21 10:45 | PT.IPTN ---
Current Diagnoses Anemia, unspecified (07/16/22) Fracture of unspecified part of neck of left femur, initial encounter for closed fracture (07/16/22) Other specified postprocedural states (07/16/22) Surgery Performed Operation Date: 07/16/22 17:00 Actual Procedures p ORIF Hip DHS(Left) - Chase Guillen MD Physical Therapy Treatment Note M2 PT-IP Current Condition Start: 07/17/22 11:33 Freq: Status: Active Protocol: Document 07/17/22 11:34 BC (Rec: 07/17/22 11:51 BC [id number]) Physical Therapy Current Condition Current Condition Evaluation Date 07/17/22 Treatment Diagnosis L hip ORIF due to fall; difficulty with ambulation Onset Date 07/16/22 M3 PT-IP Subjective Start: 07/17/22 11:33 Freq: Status: Active Protocol: Document 07/21/22 11:12 TS (Rec: 07/21/22 11:24 TS [id number]) Subjective Physical Therapy Visit Type Type Treatment Note Visit Start Time 10:45 Visit Stop Time 11:10 Total Visit Minutes 25 Number of SECURITY EXPERT Visits 1 Physical Therapy Visit Comments Patient Comments Pt reports being in a lot of pain, is expecting d/c to SNF in afternoon. Therapy Pain Assessment Pain When Pain Assessed During Mobility Pain Present Pain Present Allowed to Sleep Location left hip Description Aching,Shooting,With Movement Pain Behaviors Calling Out,Facial Grimacing, Guarding,Holding Area,Moaning, Wincing Pain Management Techniques Apply Cold,Distraction, Modification of Treatment,Re- positioning,Timing of Activity with Medications M4 PT-IP Mobility and Gait Start: 07/17/22 11:33 Freq: Status: Active Protocol: Document 07/21/22 11:12 TS (Rec: 07/21/22 11:24 TS [id number]) PT-Bed Mobility Assessment Supine to Sit Supine to Sit Moderate Assistance,Head of Bed Elevated,Bedrails PT-Transfer Assessment Comments Mobility Comments Pt performed glute sets, quad sets, heel slides, ankle pumps x5. Pt attempted to sit EOB, could not progress LLE off EOB due to pain. Gait Assessment Comments Gait Comments Unable Stair Climbing Assessment Comments Stair Climbing Comments Unable PT-Balance Assessment Sitting Balance and Reactions Static Sitting Balance Ability Fair Comments Other Balance Tests/Deviations/Treatment Unable to assess : M5 PT-IP Objective Assessments Start: 07/17/22 11:33 Freq: Status: Active Protocol: Document 07/17/22 11:34 BC (Rec: 07/17/22 11:51 BC [id number]) Orientation Orientation/Cognition Level of Alertness Alert Orientation Name,Date,Place,Situation Language Function Ability No Deficits Noted Safety Awareness Understands Safety Issues Memory Description No Deficits Noted Gross Range of Motion Lower Extremity ROM Assessment Left Impaired Impairments L hip AAROM is significantly limited by pain. Hip flx ~0-15 deg and hip abd ~0-5 deg BLE ankle and RLE knee AROM WNLs Strength Lower Extremity Strength Assessment Left Impaired Hip 2/5 Knee 3/5 Ankle 3/5 Comments Strength Comments RLE functionally demonstrated at ~4 to 5/5 Coordination Assessment Assessment Coordination Comments Tremors throughout all 4 extremities noted and increasing with pain. Sensation Assessment Sensation Gross Sensation Right LE Impaired,Left LE Impaired Sensation Description Tingling Comments Sensation Comments Hx of neuropathy BLE lower legs. Muscle Tone Muscle Tone WNL Yes M6 PT-IP Treatment Start: 07/17/22 11:33 Freq: Status: Active Protocol: Document 07/21/22 11:12 TS (Rec: 07/21/22 11:24 TS [id number]) Physical Therapy Treatment Exercises Exercises Ankle Pumps,Gluteal Sets,Quad Sets,Heel Slides Education Education Provided Precautions,Weight Bearing Status,Post-Op Packet,Safety M7 PT-IP Assessment and Plan Start: 07/17/22 11:33 Freq: Status: Active Protocol: Document 07/21/22 11:12 TS (Rec: 07/21/22 11:24 TS [id number]) PT Summary Assessment and Plan Potential Rehabilitation Potential Fair Status of Condition at Evaluation Evolving Summary Impairments Pain,ROM,Strength,Balance,Bed Mobility,Transfers,Gait, Activity Tolerance Progress Towards Goals Slow Progress due to Pain Assessment Summary Pt continues to progress slowly. She performed bed exercises of quad sets, glute sets, ankle pumps and heel slides. Pt attempted to sit EOB with HOB elevated and ModA for LEs, very slow/painful movements of LLE. Did not progress LLE off EOB due to pain. Pt is to d/c to SNF @13: 00 today. Will attempt to see in afternoon if d/c changes to progress mobility. PT continues to recommend SNF to progress bed mobility, transfers and gait. Goals Bed Mobility Goal Moderate Assistance Transfer Goal Moderate Assistance Gait Goal Moderate Assistance Gait Distance 50 Other Goals Ascend/descend 4 steps with railing and mod A. Days to Meet Goals 5 Frequency of Treatment Frequency Of Treatment Twice a Day Treatment Plan Physical Therapy Treatment Plan Bed Mobility Training,Transfer Training,Gait Training, Therapeutic Exercise,Balance Retraining,Post Op Education, Discharge Planning, Neuromuscular Re-ed, Coordination Retraining Other Recommendations and Next Treatment Progress ther ex, transfers Focus Weight Bearing Status Weight Bearing Status Partial Weight Bearing Allowed Weight Bearing Amount (enter % LLE 50lb weight bearing or #) (%) restriction Recommendations To Nursing Amount of Assist Needed Standby Assistance Discharge Recommendations PT Discharge Recommendations SNF Rehab Transportation Needs at Discharge Stretcher/Ambulance
[2022-07-21 12:16] VITALS: BP 136/54; PULSE 76
--- NOTE | 2022-07-21 15:15 | PT.IPTN ---
Current Diagnoses Anemia, unspecified (07/16/22) Fracture of unspecified part of neck of left femur, initial encounter for closed fracture (07/16/22) Other specified postprocedural states (07/16/22) Surgery Performed Operation Date: 07/16/22 17:00 Actual Procedures p ORIF Hip DHS(Left) - Chase Guillen MD Physical Therapy Treatment Note M2 PT-IP Current Condition Start: 07/17/22 11:33 Freq: Status: Active Protocol: Document 07/17/22 11:34 BC (Rec: 07/17/22 11:51 BC [id number]) Physical Therapy Current Condition Current Condition Evaluation Date 07/17/22 Treatment Diagnosis L hip ORIF due to fall; difficulty with ambulation Onset Date 07/16/22 M3 PT-IP Subjective Start: 07/17/22 11:33 Freq: Status: Active Protocol: Document 07/21/22 15:47 TS (Rec: 07/21/22 16:14 TS [id number]) Subjective Physical Therapy Visit Type Type Treatment Note Visit Start Time 15:15 Visit Stop Time 15:45 Total Visit Minutes 30 Number of RN HOME CARE Visits 2 Physical Therapy Visit Comments Patient Comments Pt continues to report significant pain in LLE, agreeable to PT session. Therapy Pain Assessment Pain When Pain Assessed During Mobility Pain Present Pain Present Pain Reported Location left hip Description Aching,Shooting,With Movement Pain Behaviors Calling Out,Facial Grimacing, Guarding,Holding Area,Moaning, Wincing Pain Management Techniques Apply Cold,Distraction, Modification of Treatment,Re- positioning,Timing of Activity with Medications M4 PT-IP Mobility and Gait Start: 07/17/22 11:33 Freq: Status: Active Protocol: Document 07/21/22 15:47 TS (Rec: 07/21/22 16:14 TS [id number]) PT-Bed Mobility Assessment Supine to Sit Supine to Sit Moderate Assistance,2 Person Assistance,Head of Bed Elevated,Bedrails Sit to Supine Sit to Supine Maximum Assistance,2 Person Assistance,Head of Bed Elevated,Bedrails Scooting Scooting to Edge of Bed Moderate Assistance Scooting Up and Down in Bed Maximum Assistance PT-Transfer Assessment Comments Mobility Comments Pt found resting in bed, agreeable to PT session. Pt performed supine to sit ModA x2 with HOB elevated BUE support on bed, provided cues for uprighting trunk and LLE off EOB. Pt scooted EOB ModA x2, required LLE held in ext for pain management, provided cues for L hip lift and scooting forward, difficult for LEs to reach floor. Pt sat EOB x8 mins with BUE support with flat bed. Sit to supine MaxA for LEs back into bed and trunk positioning. Scooted to HOB MaxA x2. PT was left in bed with nursing in room. Gait Assessment Comments Gait Comments Unable Stair Climbing Assessment Comments Stair Climbing Comments Unable PT-Balance Assessment Sitting Balance and Reactions Static Sitting Balance Ability Fair Dynamic Sitting Balance Ability Poor Comments Other Balance Tests/Deviations/Treatment Pt sat EOB CGA for LLE in : extension for pain managemnet, provided cues for BUE support on bed to maintain midline, pt lateral leans to the right. M5 PT-IP Objective Assessments Start: 07/17/22 11:33 Freq: Status: Active Protocol: Document 07/17/22 11:34 BC (Rec: 07/17/22 11:51 BC [id number]) Orientation Orientation/Cognition Level of Alertness Alert Orientation Name,Date,Place,Situation Language Function Ability No Deficits Noted Safety Awareness Understands Safety Issues Memory Description No Deficits Noted Gross Range of Motion Lower Extremity ROM Assessment Left Impaired Impairments L hip AAROM is significantly limited by pain. Hip flx ~0-15 deg and hip abd ~0-5 deg BLE ankle and RLE knee AROM WNLs Strength Lower Extremity Strength Assessment Left Impaired Hip 2/5 Knee 3/5 Ankle 3/5 Comments Strength Comments RLE functionally demonstrated at ~4 to 5/5 Coordination Assessment Assessment Coordination Comments Tremors throughout all 4 extremities noted and increasing with pain. Sensation Assessment Sensation Gross Sensation Right LE Impaired,Left LE Impaired Sensation Description Tingling Comments Sensation Comments Hx of neuropathy BLE lower legs. Muscle Tone Muscle Tone WNL Yes M6 PT-IP Treatment Start: 07/17/22 11:33 Freq: Status: Active Protocol: Document 07/21/22 15:47 TS (Rec: 07/21/22 16:14 TS [id number]) Physical Therapy Treatment Education Education Provided Precautions,Weight Bearing Status,Post-Op Packet,Safety M7 PT-IP Assessment and Plan Start: 07/17/22 11:33 Freq: Status: Active Protocol: Document 07/21/22 15:47 TS (Rec: 07/21/22 16:14 TS [id number]) PT Summary Assessment and Plan Potential Rehabilitation Potential Fair Status of Condition at Evaluation Evolving Summary Impairments Pain,ROM,Strength,Balance,Bed Mobility,Transfers,Gait, Activity Tolerance Progress Towards Goals Slow Progress due to Pain Assessment Summary Pt progressed to sitting EOB this afternoon with RLE on floor, LLE held in extension by therapist for managing pain . She continues to require ModA-MaxA for bed mobility, pain continues to limit her in progressing to standing/ transfers. PT continues to recommend SNF to progress bed mobility, transfers and gait. Goals Bed Mobility Goal Moderate Assistance Transfer Goal Moderate Assistance Gait Goal Moderate Assistance Gait Distance 50 Other Goals Ascend/descend 4 steps with railing and mod A. Days to Meet Goals 5 Frequency of Treatment Frequency Of Treatment Twice a Day Treatment Plan Physical Therapy Treatment Plan Bed Mobility Training,Transfer Training,Gait Training, Therapeutic Exercise,Balance Retraining,Post Op Education, Discharge Planning, Neuromuscular Re-ed, Coordination Retraining Other Recommendations and Next Treatment Progress to standing, Focus transfers. Weight Bearing Status Weight Bearing Status Partial Weight Bearing Allowed Weight Bearing Amount (enter % LLE 50lb weight bearing or #) (%) restriction Recommendations To Nursing Amount of Assist Needed Standby Assistance Discharge Recommendations PT Discharge Recommendations SNF Rehab Transportation Needs at Discharge Stretcher/Ambulance
--- NOTE | 2022-07-21 16:09 | OT.IP.TRT ---
Current Diagnoses Anemia, unspecified (07/16/22) Fracture of unspecified part of neck of left femur, initial encounter for closed fracture (07/16/22) Other specified postprocedural states (07/16/22) Surgery Performed Operation Date: 07/16/22 17:00 Actual Procedures p ORIF Hip DHS(Left) - Chase Guillen MD Occupational Therapy Treatment Note M2 OT-IP Current Condition Start: 07/17/22 13:37 Freq: Status: Active Protocol: Document 07/17/22 10:40 [facility] (Rec: 07/17/22 13:53 [facility] [id number]) Occupational Therapy Current Condition Current Condition Evaluation Date 07/17/22 Treatment Diagnosis S/p L ORIF due to fall Diagnosis Onset Date 07/16/22 Weight Bearing Status Weight Bearing Status Partial Weight Bearing Allowed Weight Bearing Amount (enter % 50lbs for LLE or #) (%) M3 OT- IP Subjective and Pain Start: 07/17/22 13:37 Freq: Status: Active Protocol: Document 07/21/22 15:56 [facility] (Rec: 07/21/22 16:09 AMS [id number]) OT- Subjective Occupational Therapy Visit Type Type Treatment Note Visit Start Time 03:14 Visit Stop Time 03:42 Total Visit Minutes 28 Occupational Therapy Visit Comments Patient Comments Patient received pain medication from NSG staff approximately 30 min prior to co-treatment w/ [employer]ED TAX CONSULTANT. Pain present with movement and c/o cramping/gas in the abdominal region while supine in bed ( prior to treatment). NSG to adjust bed positioning post- treatment to address discomfort. OT Pain Assessment Pain When Pain Assessed During Mobility Pain Present Pain Present Pain Reported FLACC Pain Scale Legs Uneasy, restless, tense Activity Squirming,shifting Cry Moans/whimpers/complains Consolability Reassurable with touch M4 OT- IP ADL's Start: 07/17/22 13:37 Freq: Status: Active Protocol: Document 07/17/22 10:40 [facility] (Rec: 07/17/22 13:53 [facility] [id number]) OT [id number] Comments OT Self-Feeding Comments Not at meal time OT ADL-Grooming General Evaluation Grooming Ability Standby Assistance Areas Needing Assistance Retrieving/Set-up of Grooming Items,Face Washing Comments OT Grooming Comments Pt able to wash her face while in bed after set-up. OT ADL-Oral Care General Eval Oral Care Ability Standby Assistance Areas of Assistance Retrieving/Set-Up of Items Comments Oral Care Comments Pt able to do all oral care needs while seated in the bed. OT ADL-Dressing General Eval Lower Body Dressing Ability Total Assistance Areas Needing Assistance Socks OT ADL-Toileting General Evaluation Toileting Ability Total Assistance Comments OT Toileting Comments Due to pt's lmited mobilty, suggested that pt has a Pure Wick in place. OT ADL-Bathing Comments OT Bathing Comments Sponge bath more appropriate at this time. M5 OT- IP IADL's Start: 07/17/22 13:37 Freq: Status: Active Protocol: Document 07/17/22 10:40 [facility] (Rec: 07/17/22 13:53 [facility] [id number]) OT-Instrumental Activities of Daily Living Deficits IADL Deficits Identified Deficits Home Safety Awareness Awareness of Need for Assistance at Home Good Awareness Home Safety Comments At this time due to decreased mobility, pt not safe to go home. M6 OT- IP Functional Cognition Start: 07/17/22 13:37 Freq: Status: Active Protocol: Document 07/17/22 10:40 [facility] (Rec: 07/17/22 13:53 [facility] [id number]) Cognitive Factors Limiting Selfcare Function Cognitive Ability Level of Alertness Alert Patient Orientation Name,Place,Situation Attention Span Ability Capable of Focused Attention, Capable of Sustained Attention Ability to Follow Commands Able to Follow One Step Commands Cognitive Comments Cognitive Assessment Comments Pt able to follow commands during mobility and ADL needs. OT- Vision and Hearing OT- Hearing Assessment OT- Hearing Assessment WFL M7 OT- IP Mobility and Balance Start: 07/17/22 13:37 Freq: Status: Active Protocol: Document 07/17/22 10:40 [facility] (Rec: 07/17/22 13:53 [facility] [id number]) OT-Transfer Assessment Comments Mobility Comments With HOB up , pt needing asisst to help move her LLE and LRE towards the edge of the bed in addition to use of green pad to move her closer to the edge of the bed. Pt having too much pain and having to stop and not able to get up at this time. Pt stating that he pain in 10/10 when moving. OT- Balance Assessment Comments Other Balance Tests/Deviations/Treatment Unable to assess as not able : to sit pt up due to pain. M8 OT- IP Objective Assessments Start: 07/17/22 13:37 Freq: Status: Active Protocol: Document 07/17/22 10:40 [facility] (Rec: 07/17/22 13:53 [facility] [id number]) OT-Muscle Tone Assessment Comments Muscle Tone Comments Pt has tremors with her BUE when she is having pain. M9 OT- IP Assessment and Plan Start: 07/17/22 13:37 Freq: Status: Active Protocol: Document 07/21/22 15:56 [facility] (Rec: 07/21/22 16:09 AMS [id number]) OT Summary Assessment and Plan Summary Assessment Summary Patient agreeable to attempt to sit-up at EOB. Mod phys assist w/ supine --> EOB transfer w/ use of railing and physical management of the L LE and increased time. Able to maintain sitting balance at EOB w/ therapist's physical management of the L LE w/ R LE toe touching w/ intermittent whole R foot stabilization on the floor. Able to complete 1 small scoot to the R at EOB. Mod phys assist w/ EOB --> supine transfer w/ physical management of the L LE and increased time. Given c/o pain and inability to rest L LE onto stable surface while seated at EOB, as well as need to maintain bilateral hands grasping at EOB/railing did not attempt additional ADLs at EOB or assist PT w/ s-s and/ or transfer. Max phys assist to shift upwards in bed x 2 person assist. Goals Self-Feeding Goal Independent Grooming Goal Independent Dressing Goal Moderate Assistance Toileting Goal Minimal Assistance Bathing Goal Moderate Assistance Toilet Transfer Goal Moderate Assistance Shower Transfer Goal Moderate Assistance Days to Meet Goals 30 Frequency of Treatment Frequency Of Treatment Once a Day Discharge Recommendations OT Discharge Recommendations SNF Rehab Transportation Needs at Discharge Stretcher/Ambulance
[2022-07-21 16:43] VITALS: BP 161/62; PULSE 82
--- NOTE | 2022-07-21 16:44 | PC.NURSE ---
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 Dressing to insertion site cleaned and changed, with skin prep barrier applied. Draining clear yellow urine. Colostomy appliance remains intact, no BM today so far. Patient has active bowel sounds, c/o of gas pains today. Dr. Browning notified and order for miralax and simethicone received. Patient encouraged to participate in physical therapy/increase activity levels and increase water intake. Continue to monitor.
[2022-07-21] MEDS: SIMETHICONE 80 MG TABLET PO (17:30)
[2022-07-21] MEDS: ONDANSETRON 4 MG/2 ML INJ IV ×2 (17:30→21:42)
[2022-07-21] MEDS: polyethylene glycoL 3350 17 GM POWD.PACK PO (20:44)
[2022-07-21 21:00] VITALS: BP 154/54; PULSE 64; RESP 19; TEMP 36.8; O2SAT 97
[2022-07-21] MEDS: LATANOPROST 0.005% OPHTH 2.5 ML 1 DROPS EYE-BOTH (22:55)
[2022-07-22 04:54] LABS: Add Manual Diff / Slide Review NO; Basophils Absolute Auto 0 /uL (0-100); Basophils Percent Auto 0.9 % (0-2); Eosinophils Absolute Auto 400 /uL (0-450); Eosinophils Percent Auto 6.8 % (2-4); Hematocrit 27.3 % (36-46); Hemoglobin 8.9 g/dL (12.0-16.0); Lymphocytes Absolute Auto 900 /uL (1100-4500); Lymphocytes Percent Auto 17.2 % (25-40); Mean Corpuscular HGB Conc 32.6 % (30-36); Mean Corpuscular Hemoglobin 26.1 PG (26-34); Mean Corpuscular Volume 80.1 fL (80-100); Monocytes Absolute Auto 800 /uL (0-900); Monocytes Percent Auto 14.1 % (3-14); Neutrophils Absolute Auto 3300 /uL (1500-7000); Platelet Count 269 X10^3/uL (150-400); Red Blood Cell Count 3.41 X10^6/uL (4.0-5.2); Red Cell Distribution Width 19.4 % (11.6-14.8); White Blood Cell Count 5.5 X10^3/uL (4.5-11.0)
[2022-07-22] MEDS: OXYCODONE IR 10 MG TABLET PO ×3 (05:35→13:29)
[2022-07-22 07:00] VITALS: BP 141/46; PULSE 71; RESP 17; TEMP 36.3; O2SAT 94
--- NOTE | 2022-07-22 08:25 | DI.RAD.S_ITS ---
PROCEDURE: XR ACUTE ABDOMEN SERIES INDICATIONS: abd pain TECHNIQUE: One view chest and two views of the abdomen were acquired. COMPARISON: [facility], CT, CT ABDOMEN PELVIS WITHOUT CONTRAST, 04/01/2022, 9:08. [facility], CR, ABDOMEN ACUTE SERIES, 07/14/2014, 17:05. FINDINGS: Surgical changes and devices: Left nephrostomy, right abdominal clips Chest: Lungs are clear. Cardiomegaly. No pleural effusions. No pneumoperitoneum. Abdomen: Nonspecific bowel gas pattern. Prominent, dilated air-containing colon in the region of the hepatic flexure. No dilated loops of small bowel. No suspicious calcifications. Visualized solid organ contours appear normal. Bones: No suspicious bony lesions. IMPRESSION: 1. Cardiomegaly. 2. Nonspecific bowel gas pattern with prominent common dilated air containing colon in the region of the hepatic flexure. Dictated by: Everardo Whitehead M.D. on 07/22/2022 at 10:22 Approved by: Everardo Whitehead M.D. on 07/22/2022 at 10:24
--- NOTE | 2022-07-22 08:52 | CM.DPC ---
DCP Discharge SNF SW called [facility] admissions and confirmed they can still accept pt today and all d/c packet pwk was faxed yesterday and just need RN to call report today. BREANA updated RN with report number. BLS transport was scheduled for 1100 today but per MD this morning, wanting to get an abdomen xray prior to d/c due to pt's medical hx and request afternoon discharge. BREANA called [facility] and updated and switched d/c transport time to 1315 today to [facility]. BLS form completed and on chart from yesterday. BREANA updated RN, process development engineer, and ADJUNCT PSYCHOLOGY PROFESSOR. D/C packet already completed yesterday. Plan: Patient to d/c to [facility] today via [facility] at 1315 prior to safe return home. THERESE Chung
[2022-07-22] MEDS: APIXABAN 5 MG TABLET 2.5 MG PO (10:01)
[2022-07-22] MEDS: AMLODIPINE 5 MG TABLET PO (10:02)
[2022-07-22] MEDS: METOPROLOL IR 25 MG TABLET 12.5 MG PO (10:02)
[2022-07-22] MEDS: SODIUM CHLORIDE 0.9% FLUSH 10 ML IV (10:02)
[2022-07-22 10:05] VITALS: BP 142/58; PULSE 72
[2022-07-22] MEDS: ALBUTEROL/IPRATROPIUM 3 ML AMPUL INH (10:11)
[2022-07-22 10:14] VITALS: O2SAT 93
--- NOTE | 2022-07-22 11:05 | PT.IPTN ---
Current Diagnoses Anemia, unspecified (07/16/22) Fracture of unspecified part of neck of left femur, initial encounter for closed fracture (07/16/22) Other specified postprocedural states (07/16/22) Surgery Performed Operation Date: 07/16/22 17:00 Actual Procedures p ORIF Hip DHS(Left) - Chase Guillen MD Physical Therapy Treatment Note M2 PT-IP Current Condition Start: 07/17/22 11:33 Freq: Status: Active Protocol: Document 07/17/22 11:34 [facility] (Rec: 07/17/22 11:51 [facility] [id number]) Physical Therapy Current Condition Current Condition Evaluation Date 07/17/22 Treatment Diagnosis L hip ORIF due to fall; difficulty with ambulation Onset Date 07/16/22 M3 PT-IP Subjective Start: 07/17/22 11:33 Freq: Status: Active Protocol: Document 07/22/22 11:23 TS (Rec: 07/22/22 11:33 TS [id number]) Subjective Physical Therapy Visit Type Type Treatment Note Visit Start Time 11:05 Visit Stop Time 11:20 Total Visit Minutes 15 Number of REMOTE CONTROL MIRROR INSTALLER Visits 3 Physical Therapy Visit Comments Patient Comments Pt reports she just had an x- ray on abdomen, MD will come by around noon to discuss. Discussed her d/c to snf around 13:15 this afternoon. Therapy Pain Assessment Pain When Pain Assessed During Mobility Pain Present Pain Present Pain Reported Location left hip Description Aching,Shooting,With Movement Pain Behaviors Calling Out,Facial Grimacing, Guarding,Holding Area,Moaning, Wincing Pain Management Techniques Apply Cold,Distraction, Modification of Treatment,Re- positioning,Timing of Activity with Medications M4 PT-IP Mobility and Gait Start: 07/17/22 11:33 Freq: Status: Active Protocol: Document 07/22/22 11:23 TS (Rec: 07/22/22 11:33 TS [id number]) PT-Transfer Assessment Comments Mobility Comments Pt performed bed exercises of ankle pumps, quad sets, glute sets, AAROM heel slides and AAROM Hip ABD. Did not mobilize this session. Pt was left in bed with son in room, call light nearby. Gait Assessment Comments Gait Comments Unable Stair Climbing Assessment Comments Stair Climbing Comments Unable PT-Balance Assessment Comments Other Balance Tests/Deviations/Treatment Did not assess this session. : M5 PT-IP Objective Assessments Start: 07/17/22 11:33 Freq: Status: Active Protocol: Document 07/17/22 11:34 [facility] (Rec: 07/17/22 11:51 [facility] [id number]) Orientation Orientation/Cognition Level of Alertness Alert Orientation Name,Date,Place,Situation Language Function Ability No Deficits Noted Safety Awareness Understands Safety Issues Memory Description No Deficits Noted Gross Range of Motion Lower Extremity ROM Assessment Left Impaired Impairments L hip AAROM is significantly limited by pain. Hip flx ~0-15 deg and hip abd ~0-5 deg BLE ankle and RLE knee AROM WNLs Strength Lower Extremity Strength Assessment Left Impaired Hip 2/5 Knee 3/5 Ankle 3/5 Comments Strength Comments RLE functionally demonstrated at ~4 to 5/5 Coordination Assessment Assessment Coordination Comments Tremors throughout all 4 extremities noted and increasing with pain. Sensation Assessment Sensation Gross Sensation Right LE Impaired,Left LE Impaired Sensation Description Tingling Comments Sensation Comments Hx of neuropathy BLE lower legs. Muscle Tone Muscle Tone WNL Yes M6 PT-IP Treatment Start: 07/17/22 11:33 Freq: Status: Active Protocol: Document 07/22/22 11:23 TS (Rec: 07/22/22 11:33 TS [id number]) Physical Therapy Treatment Exercises Exercises Ankle Pumps,Gluteal Sets,Quad Sets,Heel Slides,Supine Hip Abduction Education Education Provided Precautions,Weight Bearing Status,Safety M7 PT-IP Assessment and Plan Start: 07/17/22 11:33 Freq: Status: Active Protocol: Document 07/22/22 11:23 TS (Rec: 07/22/22 11:33 TS [id number]) PT Summary Assessment and Plan Potential Rehabilitation Potential Good Status of Condition at Evaluation Evolving Summary Impairments Pain,ROM,Strength,Balance,Bed Mobility,Transfers,Gait, Activity Tolerance Progress Towards Goals Slow Progress due to Pain Assessment Summary Pt continues to progress slowly due to pain. Pt did not mobilize at this time. She performed bed ex ankle pumps, quad sets, glute sets, AAROM heels slides and AAROM hip ABD , pt c/o pain/discomfort in groin and hip area. Pt is expecting D/C around 13:00 if medically cleared. PT continues to recommend SNF to progress bed mobility, transfers and gait. Goals Bed Mobility Goal Moderate Assistance Transfer Goal Moderate Assistance Gait Goal Moderate Assistance Gait Distance 50 Other Goals Ascend/descend 4 steps with railing and mod A. Days to Meet Goals 5 Frequency of Treatment Frequency Of Treatment Twice a Day Treatment Plan Physical Therapy Treatment Plan Bed Mobility Training,Transfer Training,Gait Training, Therapeutic Exercise,Balance Retraining,Post Op Education, Discharge Planning, Neuromuscular Re-ed, Coordination Retraining Other Recommendations and Next Treatment Progress to standing, Focus transfers. Weight Bearing Status Weight Bearing Status Partial Weight Bearing Allowed Weight Bearing Amount (enter % LLE 50lb weight bearing or #) (%) restriction Recommendations To Nursing Amount of Assist Needed 2 Person Assist Discharge Recommendations PT Discharge Recommendations SNF Rehab Transportation Needs at Discharge Stretcher/Ambulance
[2022-07-22] MEDS: polyethylene glycoL 3350 17 GM POWD.PACK PO (13:20)
== END 2022-07-22 14:10 | DRG 481 ==
LOC: ED 02:55 → AC 03:14 → ICU 03:24 → AC 07-19 13:11
PROVIDERS: Anesthesiology; Family Medicine; Internal Medicine; Orthopaedic Surgery; Admitting Provider Family Medicine; Emergency Provider Emergency Medicine; PCP Family Medicine; Referring Provider Emergency Medicine; Visit Provider Family Medicine
PROC: 0QS704Z Reposition Left Upper Femur with Internal Fixation Device, Open Approach (ICD-10-PCS; principal; 2022-07-16 17:00)
DX: S72.142A Displaced intertrochanteric fracture of left femur, initial encounter for closed fracture (principal); D62 Acute posthemorrhagic anemia; K56.7 Ileus, unspecified; I48.91 Unspecified atrial fibrillation; I10 Essential (primary) hypertension; K21.9 Gastro-esophageal reflux disease without esophagitis; F17.210 Nicotine dependence, cigarettes, uncomplicated; R07.9 Chest pain, unspecified; W01.0XXA Fall on same level from slipping, tripping and stumbling without subsequent striking against object, initial encounter; Z90.5 Acquired absence of kidney; Z86.711 Personal history of pulmonary embolism; Z93.3 Colostomy status; Z86.718 Personal history of other venous thrombosis and embolism; Z20.822 Contact with and (suspected) exposure to COVID-19; Z79.01 Long term (current) use of anticoagulants; Z87.898 Personal history of other specified conditions
CPT/HCPCS: 36415; 36430; 73502; 73503; 73560; 74022; 76000; 80048; 80053; 84484; 85014; 85018; 85025; 85027; 85610; 85730; 86850; 86900; 86901; 87635; 87797; 93005; 93010; 94640; 94760; 96374; 96375; 97110; 97162; 97167; 97530; 99232; 99233; 99284; C9803; P9016; C9113; J0171; J0690; J1100; J1170; J2270; J2405; J2704; J3010; P9041

== ENCOUNTER → 2023-01-01 16:10 | Outpatient (ROUT) | payer MEDICARE, SELFPAY ==
[2023-01-01 16:32] LABS: BUN Creatinine Ratio 27.1 (6-22); Blood Urea Nitrogen 49 mg/dL (7-17); Calcium 10.1 mg/dL (8.4-10.2); Carbon Dioxide 22 mmol/L (22-32); Chloride 110 mmol/L (98-107); Estimated Glomerular Filt Rate 28 mL/min (>60); Glucose 98 mg/dL (80-110); HEMOLYSIS 16 (0-50); Potassium 4.9 mmol/L (3.4-5.1); Sodium 139 mmol/L (137-145)
== END ==
PROVIDERS: PCP Family Medicine; Visit Provider Registered Nurse
DX: J44.1 Chronic obstructive pulmonary disease with (acute) exacerbation (principal)
CPT/HCPCS: 80048

== ENCOUNTER 2023-03-31 10:31 | Inpatient (IN) | payer MEDICARE, SELFPAY ==
[2023-03-31] VITALS (22 sets, daily range): BP systolic 136–188; BP diastolic 53–95; PULSE 64–77; RESP 11–26; TEMP 36.7–37; O2SAT 92–99; BMI 33.1; BMI 31.3
[2023-03-31 11:08] LABS: Add Manual Diff / Slide Review NO; Basophils Absolute Auto 100 /uL (0-100); Basophils Percent Auto 1.4 % (0-2); Eosinophils Absolute Auto 300 /uL (0-450); Eosinophils Percent Auto 5.6 % (2-4); Hematocrit 27.8 % (36-46); Hemoglobin 8.9 g/dL (12.0-16.0); Lymphocytes Absolute Auto 700 /uL (1100-4500); Lymphocytes Percent Auto 12.3 % (25-40); Mean Corpuscular HGB Conc 32.1 % (30-36); Mean Corpuscular Hemoglobin 24.9 PG (26-34); Mean Corpuscular Volume 77.7 fL (80-100); Monocytes Absolute Auto 500 /uL (0-900); Monocytes Percent Auto 8.7 % (3-14); Neutrophils Absolute Auto 4400 /uL (1500-7000); Platelet Count 346 X10^3/uL (150-400); Red Blood Cell Count 3.59 X10^6/uL (4.0-5.2)
[2023-03-31] MEDS: MORPHINE 2 MG/ML INJ IV (11:14)
[2023-03-31] MEDS: ONDANSETRON 4 MG/2 ML INJ IV (11:14)
[2023-03-31] MEDS: SODIUM CHLORIDE 0.9% 1,000 ML 1000 ML IV ×2 (11:14→13:27)
[2023-03-31 11:19] LABS: Lactate (Lactic Acid) 1.3 mmol/L (0.7-2.1)
[2023-03-31 11:20] LABS: Alanine Aminotransferase 9 IU/L (<35); Albumin 3.5 g/dL (3.5-5.0); Albumin Globulin Ratio 0.8 (1.0-2.8); Alkaline Phosphatase 106 U/L (38-126); BUN Creatinine Ratio 11.6 (6-22); Bilirubin Total 0.7 mg/dL (0.2-1.3); Blood Urea Nitrogen 20 mg/dL (7-17); Calcium 9.8 mg/dL (8.4-10.2); Carbon Dioxide 24 mmol/L (22-32); Chloride 107 mmol/L (98-107); Estimated Glomerular Filt Rate 29 mL/min (>60); Globulin 4.2 g/dL (1.7-4.1); Glucose 99 mg/dL (80-110); HEMOLYSIS < 15 (0-50); Lipase 36 U/L (23-300); Potassium 4.4 mmol/L (3.4-5.1); Sodium 135 mmol/L (137-145); Total Protein 7.7 g/dL (6.3-8.2)
--- NOTE | 2023-03-31 11:25 | ED.ABDPAIN ---
HPI - Abdominal Pain General Chief Complaint: Abdominal Pain Stated Complaint: urostomy pain Time Seen by Provider: 03/31/23 11:03 Source: patient and EMS Mode of arrival: EMS History of Present Illness HPI narrative: Patient is a 83-year-old female history of hypertension, paroxysmal atrial fibrillation, nephrostomy tube presenting today with pain at nephrostomy tube. She was actually seen i and evaluated at [facility] on March 26 she reports that she went to the ED for pain and was released the same day. She was started on Cipro and given oxycodone. She reports that she has had continued pain radiates up her left shoulder but she does not really have any significant chest pain. She says that she had the nephrostomy tube for recurrent multidrug resistant UTIs. There is does appear to be some gross discharge at the nephrostomy tube site she says sometimes happens. She has not had fever or chills. 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 She has chronic obstructing left mid ureteral stone nephrostomy tube was in place she had some mild leukocytosis she was started on Cipro leukocytes were positive for nitrates as well. She was given some pain medications and discharged. Related Data Home Medications Medication Instructions Recorded Confirmed latanoprost 0.005 % eye drops 1 drp EYE-BOTH BEDTIME 02/09/18 12/18/22 amlodipine 5 mg tablet (Norvasc) 5 mg PO QPM 03/29/18 12/18/22 apixaban 2.5 mg tablet (Eliquis) 2.5 mg PO BID 05/06/22 12/18/22 metoprolol tartrate 25 mg tablet 12.5 mg PO BID 05/06/22 12/18/22 ipratropium 0.5 mg-albuterol 3 mg 3 ml inhalation 4XD 07/16/22 12/18/22 (2.5 mg base)/3 mL nebulization soln Previous Rx's Medication Instructions Recorded trazodone 50 mg tablet 50 mg PO BEDTIME #30 tabs 07/19/22 oxycodone 10 mg tablet 10 mg PO Q4H PRN Pain, Moderate 07/20/22 (4-6) #30 tabs Allergies Allergy/AdvReac Type Severity Reaction Status Date / Time cashew nut Allergy Severe Anaphylaxis Verified 02/27/21 16:45 ciprofloxacin [CIPROFLOXACIN] Allergy Intermediate HIVES UP Verified 12/18/22 11:23 ARM RIGHT AFTER IV DOSE STARTED nitrofurantoin Allergy Intermediate rash, Verified 12/18/22 11:23 [From MACRODANTIN] itching Review of Systems Review of Systems ROS Unobtainable: All systems reviewed & are unremarkable except as noted in HPI and below Patient History Medical History Gout Chronic UTI Arthritis Pulmonary embolism Unspecified essential hypertension Colitis with rectal bleeding Peristomal skin complication Lumbar hernia Retained urethral stent S/p nephrectomy Anticoagulated Chronic renal disease, stage 3, moderately decreased glomerular filtration rate (GFR) between 30-59 mL/min/1.[address] in place Leg swelling Easy bruisability Rectal carcinoma Port-A-Cath in place Neuropathy Incontinence Allergic reaction 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 Abnormal mammogram of right breast Parastomal hernia 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 Rectal cancer Surgical History History of ureter stent H/O nephrostomy H/O lithotripsy History of low anterior resection of rectum Family History Mother Hypertension Cancer Son Hypertension Grandfather Heart disease Social History marital status: number of children: 1 household members: family lives independently: Yes occupational status: previously employed and other Smoking Status: Current some day smoker Tobacco: How many years used: 60 alcohol intake: current substance use type: does not use caffeine: Yes Type(s) of exercise: none Smoking Status: Current some day smoker alcohol intake frequency: holidays/special occasions only Substance Use Type: marijuana Exam Initial Vital Signs Initial Vital Signs: Vital Signs Pulse Rate 68 03/31/23 10:37 Pulse Oximetry 99 03/31/23 10:37 GENERAL: Alert pleasant 83-year-old female appears uncomfortable and in no acute distress. HEENT: Head atraumatic,EOMI, pupils reactive, face symmetric, moist mucous membranes CARDIOVASCULAR: Regular rate and rhythm without murmurs, rubs or gallops. RESPIRATORY: Breath sounds equal bilaterally, no wheezes rales or rhonchi. ABDOMEN: Soft, nontender. Normoactive bowel sounds all 4 quadrants. No guarding or rebound. : Left CVA tenderness nephrostomy site seen there is gross drainage on 4x4s foul smelling but there is urine and drainage in the nephrostomy tube EXTREMITIES: Normal range of motion, no clubbing or edema. Neurovascularly intact NEUROLOGICAL: Alert and oriented x4.Normal gait and speech. Cranial nerves II through XII grossly intact. SKIN: Warm, dry, no laceration, no petechiae, no rashes or lesions. Course Orders Ordered: ED Orders 03/31/23 10:45 EKG-12 Lead Stat 03/31/23 10:55 Complete Blood Count AUTO DIFF Stat Comprehensive Metabolic Panel Stat Lactate (Lactic Acid) Stat Lipase Stat Procalcitonin Stat 03/31/23 11:17 Urine Culture Stat Urine Microscopic Stat 03/31/23 11:19 Blood Culture Stat 03/31/23 11:35 Wound Culture and Gram Stain Stat 03/31/23 11:36 CT kidney ureter bladder (KUB) Stat 03/31/23 13:42 MR abdomen wo/w con Stat Ondansetron HCl (Ondansetron 4 Mg Odt) 4 mg PO NOW PRN PRN Reason: Nausea And Vomiting Ondansetron HCl (Ondansetron 4 Mg/2 Ml Inj) 4 mg IV NOW PRN PRN Reason: Nausea And Vomiting Last Admin: 03/31/23 11:14 Dose: 4 mg Documented By: MIKE Discontinued Medications Hydromorphone HCl (Hydromorphone 0.5 Mg Inj) 0.5 mg IV NOW ONE Stop: 03/31/23 17:14 Last Admin: 03/31/23 17:28 Dose: 0.5 mg Documented By: EDDIE Sodium Chloride (Normal Saline 0.9%) 1,000 mls @ 1,000 mls/hr IV BOLUS ONE Stop: 03/31/23 12:02 Last Infusion: 03/31/23 13:17 Dose: Infused Documented By: Admin: 03/31/23 11:14 Dose: 1,000 mls/hr Documented By: MIKE Sodium Chloride (Normal Saline 0.9%) 1,000 mls @ 1,000 mls/hr IV BOLUS ONE Stop: 03/31/23 14:17 Last Infusion: 03/31/23 14:39 Dose: Infused Documented By: Admin: 03/31/23 13:27 Dose: 1,000 mls/hr Documented By: EDDIE Morphine Sulfate (Morphine 2 Mg/Ml Inj) 2 mg IV NOW ONE Stop: 03/31/23 11:04 Last Admin: 03/31/23 11:14 Dose: 2 mg Documented By: MIKE Morphine Sulfate (Morphine 4 Mg/Ml Inj) 4 mg IV NOW ONE Stop: 03/31/23 11:37 Last Admin: 03/31/23 11:54 Dose: 4 mg Documented By: MIKE Morphine Sulfate (Morphine 4 Mg/Ml Inj) 4 mg IV NOW ONE Stop: 03/31/23 15:20 Last Admin: 03/31/23 15:48 Dose: 4 mg Documented By: EDDIE Vital Signs Vital signs: Vital Signs - 8 hr 03/31/23 10:37 03/31/23 10:41 03/31/23 11:00 Temperature 98.0 F Pulse Rate 68 64 66 Respiratory Rate 18 Blood Pressure 164/87 H Pulse Oximetry 99 99 98 Oxygen Delivery Method Room Air 03/31/23 11:30 03/31/23 11:52 03/31/23 11:52 Temperature Pulse Rate 69 68 Respiratory Rate 11 L Blood Pressure 160/72 H Pulse Oximetry 96 96 Oxygen Delivery Method 03/31/23 12:00 03/31/23 12:17 03/31/23 12:17 Temperature Pulse Rate 71 70 Respiratory Rate Blood Pressure 161/67 H Pulse Oximetry 93 95 Oxygen Delivery Method 03/31/23 12:30 03/31/23 12:30 03/31/23 13:00 Temperature Pulse Rate 73 Respiratory Rate 22 Blood Pressure 172/73 H 160/72 H Pulse Oximetry 94 Oxygen Delivery Method 03/31/23 13:00 03/31/23 13:30 03/31/23 13:30 Temperature Pulse Rate 69 70 Respiratory Rate 21 23 Blood Pressure 163/95 H Pulse Oximetry 93 98 Oxygen Delivery Method Room Air 03/31/23 14:00 03/31/23 14:00 03/31/23 14:30 Temperature Pulse Rate 77 Respiratory Rate 20 Blood Pressure 188/83 H 171/73 H Pulse Oximetry 94 Oxygen Delivery Method 03/31/23 14:30 03/31/23 15:28 03/31/23 15:28 Temperature Pulse Rate 74 76 Respiratory Rate 26 H 23 Blood Pressure 156/69 H Pulse Oximetry 93 96 Oxygen Delivery Method 03/31/23 15:30 03/31/23 15:30 03/31/23 16:00 Temperature Pulse Rate 73 Respiratory Rate 23 Blood Pressure 148/64 H 161/67 H Pulse Oximetry 96 Oxygen Delivery Method Room Air 03/31/23 16:00 Temperature Pulse Rate 72 Respiratory Rate 25 H Blood Pressure Pulse Oximetry 95 Oxygen Delivery Method MDM - Abdominal Pain Lab Data 03/31/23 10:55 03/31/23 10:55 Labs: Lab Results 03/31/23 03/31/23 Range/Units 10:55 11:17 WBC 6.0 (4.5-11.0) X10^3/uL RBC 3.59 L (4.0-5.2) X10^6/uL Hgb 8.9 L (12.0-16.0) g/dL Hct 27.8 L (36-46) % MCV 77.7 L (80-100) fL MCH 24.9 L (26-34) PG MCHC 32.1 (30-36) % RDW 17.0 H (11.6-14.8) % Plt Count 346 (150-400) X10^3/uL Neut % (Auto) 72.0 (50-75) % Lymph % (Auto) 12.3 L (25-40) % [place] % (Auto) 8.7 (3-14) % Eos % (Auto) 5.6 H (2-4) % Baso % (Auto) 1.4 (0-2) % Neut # (Auto) 4400 (4293-0617) /uL Lymph # (Auto) 700 L (0753-2171) /uL [place] # (Auto) 500 (0-900) /uL Eos # (Auto) 300 (0-450) /uL Baso # (Auto) 100 (0-100) /uL Sodium 135 L (137-145) mmol/L Potassium 4.4 (3.4-5.1) mmol/L Chloride 107 (98-107) mmol/L Carbon Dioxide 24 (22-32) mmol/L BUN 20 H (7-17) mg/dL Creatinine 1.73 H (0.52-1.04) mg/dL Estimated GFR 29 L (>60) mL/min BUN/Creatinine Ratio 11.6 (6-22) Glucose 99 (80-110) mg/dL Lactate 1.3 (0.7-2.1) mmol/L Calcium 9.8 (8.4-10.2) mg/dL Total Bilirubin 0.7 (0.2-1.3) mg/dL AST TNP ALT 9 (<35) IU/L Alkaline Phosphatase 106 (38-126) U/L Total Protein 7.7 (6.3-8.2) g/dL Albumin 3.5 (3.5-5.0) g/dL Globulin 4.2 H (1.7-4.1) g/dL Albumin/Globulin Ratio 0.8 L (1.0-2.8) Lipase 36 (23-300) U/L Procalcitonin 0.16 (<0.5) ng/mL Urine RBC 30-100/hpf H (0-5/HPF) Urine WBC 30-100/hpf H (0-5/HPF) Ur Squamous Epith Cells 1-5 /hpf (0-5/HPF) Urine Bacteria Many (>30) H (None) Ur Culture Indicated? Specimen cultured Point of care testing: Urine Dip Bedside Urine Glucose Negative Bedside Urine Bilirubin - Negative Bedside Urine Ketone - Negative Urine Specific [place] 1.015 Bedside Urine Occult Blood +++ Bedside Urine pH 6.0 Bedside Urine Protein +++ 300 Bedside Urine Urobilinogen - Negative Bedside Urine Nitrite + Positive Bedside Urine Leukocytes +++ [address] scan - abdomen/pelvis: Radiologist's Impression: PROCEDURE: CT KIDNEY URETER BLADDER (KUB) INDICATIONS: nephrostomy tube pain left TECHNIQUE: Axial sections were acquired from the lung bases to the pubic symphysis. Coronal and sagittal reformats were performed. For radiation dose reduction, the following was used: automated exposure control, adjustment of mA and/or kV according to patient size. COMPARISON: [facility], US, US RENAL LIMITED, 09/09/2022, 16:03. [facility], CT, CT ABDOMEN PELVIS WITHOUT CONTRAST, 04/01/2022, 9:08. [facility], CT, CT ABDOMEN PELVIS WITHOUT CONTRAST, 03/26/2023, 18:02. [facility], CT, CT KIDNEY URETER BLADDER (KUB), 06/22/2018, 16:13. FINDINGS: Image quality: Diagnostic. Lower Chest: No significant findings. URINARY: The right kidney is not visualized and is presumably surgically absent. The left kidney is mildly atrophic. A nephrostomy tube is present within the lower pole of the left kidney. There is moderate hydronephrosis. When compared with the CT dated March 26, 2023, the degree of hydronephrosis is slightly increased in extent suggesting at least partial blockage of the nephrostomy tube. There is moderate perinephric fat stranding present, as before. Multiple renal calculi are visualized within the mid ureter, similar to the prior study. Bladder: The bladder is decompressed. ABDOMEN: Liver: No contour-deforming solid mass. Subcentimeter hypodensities are present suggesting the presence of small hepatic cysts. Gallbladder: Unremarkable. Biliary ducts: No biliary dilation. Pancreas: No ductal dilation. Spleen: The spleen demonstrates normal size. Adjacent to the spleen there is a 5.3 x 6.5 x 5.1 cm heterogeneous mass (series 2/image 27 and series 5/image 74). This is new when compared with the CT dated April 01, 2022. Adrenal Glands: No adrenal nodules. Stomach and Bowel: Normal colonic caliber, without significant wall thickening. Peritoneum: No abnormal intraperitoneal fluid. No free air. Ventral Wall: There is a large right in the spigelian hernia which contains a loop of hepatic flexure and peritoneal fat. No strangulation. There is also a large left lower quadrant hernia which contains multiple loops of small bowel and sigmoid colon. No strangulation. There are multiple midline ventral hernias, some of which contain only fat, and many of which contain nondilated loops of small bowel. Abdominal Nodes: No enlarged retroperitoneal or mesenteric lymph nodes. Vessels: Aorta and inferior vena cava are normal in size. There are dense atheromatous calcifications throughout the aorta and iliac arteries bilaterally. PELVIS: Pelvic Organs: Unremarkable. Pelvic Nodes: Unremarkable. Miscellaneous: No inguinal hernias are seen. Bones: Unremarkable. IMPRESSION: 1. Increased left hydronephrosis in the setting of a nephrostomy tube suggesting at least partial obstruction of the tube. Passing with normal saline recommended. If the tube remains clogged, nephrostomy tube replacement recommended. 2. Heterogeneous mass posterior to the spleen as described above which is new when compared with the study from 1 year ago. Differential considerations include hematoma, abscess, and neoplasm. Contrast enhanced CT or MRI of this region is recommended to further characterize findings. These results were discussed with Dr. Tai at 1:25 p.m. On March 31, 2023. 3. Multiple fat and bowel containing abdominal hernias. No findings to suggest strangulation at this time. Dictated by: Jeanne López M.D. on 03/31/2023 at 13:07 ECG Data Interpretation: Normal sinus rhythm rate 66 MN interval 180 QRS [address] changes MDM Narrative Medical decision making narrative: Patient 83-year-old female with left-sided nephrostomy tube presenting with ongoing left-sided pain that radiates up to her left shoulder. Records from [facility] have been received and reviewed she currently is Cipro. Morphine seems to help quite a bit with her pain. She is afebrile. Blood work has been reviewed WBC is 6.0 anemia hemoglobin 8.9 previous hemoglobin hospitalist 8.9 however 1 week ago was 10.1, hematocrit today 27.8 previously 33.8 last week, kidney function is mild improved and basically stable GFR 29 electrolytes stable Imaging reviewed: I actually spoke with Radiology Dr. Bartholomew,she reports that there is probably some worsening left hydronephrosis recommended flushing the nephrostomy tube. She also reports that there is a questionable splenic mass. Both CTs last week today were done without contrast secondary to chronic kidney disease. States that an MRI or CT with contrast maybe beneficial. But this would explain her ongoing left flank pain that radiates up to her left shoulder. MRI abdomen splenic hematoma 5.7 x 6.2 cm I personally flushed the nephrostomy it easily flushed and tutu back. Patient reports that she flushes it daily without any issue. He is some gross discharge nephrostomy site which was foul smelling it was sent for culture. Patient overall does not appear septic. MRI is ordered. Where splenic hematoma is found 1615 Dr. Key surgery updated patient's symptoms test results. Reports pain control only. Is happy to consult if needed no surgical intervention. It is unclear why she hematoma no history of falling. She is on Eliquis 2.5 mg for history of DVT and PE. She reports that it is quite difficult to get around at home with pain. She is oxycodone at home which isn't really helping. She has had multiple doses of morphine here which sometimes help. She lives alone. Dr. Ruiz updated patient's symptoms test results and kindly accepts for pain control Discharge Plan Departure Patient Disposition: Admitted as Observation Clinical Impression: Spleen hematoma
[2023-03-31 11:26] LABS: Bacteria Urine Many (>30); Culture Indicated Urine Specimen Cultured; RBC Urine 30-100/HPF (0-5/HPF); Squamous Epithelial Cell Urine 1-5 /HPF (0-5/HPF); WBC Urine 30-100/HPF (0-5/HPF)
[2023-03-31 11:36] LABS: Procalcitonin 0.16 ng/mL (<0.5)
--- NOTE | 2023-03-31 11:36 | DI.CT.S_ITS ---
PROCEDURE: CT KIDNEY URETER BLADDER (KUB) INDICATIONS: nephrostomy tube pain left TECHNIQUE: Axial sections were acquired from the lung bases to the pubic symphysis. Coronal and sagittal reformats were performed. For radiation dose reduction, the following was used: automated exposure control, adjustment of mA and/or kV according to patient size. COMPARISON: [facility], US, US RENAL LIMITED, 09/09/2022, 16:03. [facility], CT, CT ABDOMEN PELVIS WITHOUT CONTRAST, 04/01/2022, 9:08. [facility], CT, CT ABDOMEN PELVIS WITHOUT CONTRAST, 03/26/2023, 18:02. [facility], CT, CT KIDNEY URETER BLADDER (KUB), 06/22/2018, 16:13. FINDINGS: Image quality: Diagnostic. Lower Chest: No significant findings. URINARY: The right kidney is not visualized and is presumably surgically absent. The left kidney is mildly atrophic. A nephrostomy tube is present within the lower pole of the left kidney. There is moderate hydronephrosis. When compared with the CT dated March 26, 2023, the degree of hydronephrosis is slightly increased in extent suggesting at least partial blockage of the nephrostomy tube. There is moderate perinephric fat stranding present, as before. Multiple renal calculi are visualized within the mid ureter, similar to the prior study. Bladder: The bladder is decompressed. ABDOMEN: Liver: No contour-deforming solid mass. Subcentimeter hypodensities are present suggesting the presence of small hepatic cysts. Gallbladder: Unremarkable. Biliary ducts: No biliary dilation. Pancreas: No ductal dilation. Spleen: The spleen demonstrates normal size. Adjacent to the spleen there is a 5.3 x 6.5 x 5.1 cm heterogeneous mass (series 2/image 27 and series 5/image 74). This is new when compared with the CT dated April 01, 2022. Adrenal Glands: No adrenal nodules. Stomach and Bowel: Normal colonic caliber, without significant wall thickening. Peritoneum: No abnormal intraperitoneal fluid. No free air. Ventral Wall: There is a large right in the spigelian hernia which contains a loop of hepatic flexure and peritoneal fat. No strangulation. There is also a large left lower quadrant hernia which contains multiple loops of small bowel and sigmoid colon. No strangulation. There are multiple midline ventral hernias, some of which contain only fat, and many of which contain nondilated loops of small bowel. Abdominal Nodes: No enlarged retroperitoneal or mesenteric lymph nodes. Vessels: Aorta and inferior vena cava are normal in size. There are dense atheromatous calcifications throughout the aorta and iliac arteries bilaterally. PELVIS: Pelvic Organs: Unremarkable. Pelvic Nodes: Unremarkable. Miscellaneous: No inguinal hernias are seen. Bones: Unremarkable. IMPRESSION: 1. Increased left hydronephrosis in the setting of a nephrostomy tube suggesting at least partial obstruction of the tube. Passing with normal saline recommended. If the tube remains clogged, nephrostomy tube replacement recommended. 2. Heterogeneous mass posterior to the spleen as described above which is new when compared with the study from 1 year ago. Differential considerations include hematoma, abscess, and neoplasm. Contrast enhanced CT or MRI of this region is recommended to further characterize findings. These results were discussed with Dr. Tai at 1:25 p.m. On March 31, 2023. 3. Multiple fat and bowel containing abdominal hernias. No findings to suggest strangulation at this time. Dictated by: Jeanne López M.D. on 03/31/2023 at 13:07 Approved by: Jeanne López M.D. on 03/31/2023 at 13:29
[2023-03-31] MEDS: MORPHINE 4 MG/ML INJ IV ×2 (11:54→15:48)
--- NOTE | 2023-03-31 13:42 | DI.MRI.S_ITS ---
PROCEDURE: MR ABDOMEN WO/W CON INDICATIONS: spleen mass TECHNIQUE: Coronal HASTE, axial 2D FLASH in- and [id number]; axial breath-hold T2 FSE. Dynamic axial VIBE during the administration of contrast; post-contrast coronal VIBE or 2D FLASH with fat saturation from the hepatic dome to the iliac crests. Optional diffusion weighted imaging and ADC may be performed. COMPARISON: Same day CT KUB, CT from 03/26/2023. FINDINGS: Image quality: Diagnostic. Lung bases: Unremarkable. Liver: No solid mass. Hepatic cysts are present. Gallbladder: No gallstones or wall thickening. Gallbladder sludge. Biliary ducts: No biliary dilation. Pancreas: No ductal dilation. Atrophic. Suspect side branch IPMN measuring less than 3 mm within the pancreatic head. Spleen: Nonenhancing fluid collection with T2 hypointense, T1 hyperintense components measuring 5.7 x 6.2 cm lying posterior to the spleen (series 5, image 13). Adrenal Glands: No adrenal nodules. Kidneys and Ureters: Percutaneous left-sided nephrostomy tube. Urothelial thickening of the left-sided renal collecting system. Similar mild right-sided hydronephrosis. Right nephrectomy. Stomach and Bowel: Normal colonic caliber, without significant wall thickening. Peritoneum: No abnormal intraperitoneal fluid. No free air. Ventral Wall: Ventral and right lumbar hernia containing nonobstructed bowel. Abdominal Nodes: No retroperitoneal or mesenteric adenopathy by size criteria. Vessels: Aorta and inferior vena cava are normal in size. Bones: No aggressive osseous abnormality. IMPRESSION: Perisplenic hematoma measuring 5.7 x 6.2 cm. Percutaneous left-sided nephrostomy tube with persistent hydronephrosis and hydroureter. Correlate with function. Left-sided urothelial wall thickening, either ascending infection or inflammation from nephrostomy tube. Dictated by: Javan Tang M.D. on 03/31/2023 at 15:47 Approved by: Javan Tang M.D. on 03/31/2023 at 15:52
[2023-03-31] MEDS: HYDROMORPHONE 0.5 MG INJ IV (17:28)
--- NOTE | 2023-03-31 18:56 | P.HP_ITS ---
History of Present Illness History of Present Illness Date Patient Seen: 03/31/23 Time Patient Seen: 18:56 Chief complaint: urostomy pain Narrative: This is a very pleasant 83-year-old female who is under the care of Dr. Grover. She presents to the ER with persistent left flank pain. Patient has a nephrostomy tube in place due to having a single kidney and recurrent UTIs and hydronephrosis. Patient was evaluated recently in the ER at [facility] and was sent home on Cipro and pain medications. She continues to have pain and it is worsening and she is unable to tolerate this. Workup in the ER included comparing a CT scan today from 1 at [place] on the and then a subsequent MRI of her abdomen was ordered for questionable mass in the posterior aspect of the spleen and a splenic hematoma posterior was visualized. The nephrostomy tube was flushing in his functioning well. This was changed out in January. Due to intractable pain and worsened anemia and splenic hematoma patient was admitted to the hospital for further treatment and evaluation. Patient has a complicated medical history. She has had recurrent kidney stones and is missing 1 kidney due to previous renal cell carcinoma and was then having recurrent UTIs with resistant bacteria and therefore nephrostomy tube was placed. She denies any other symptoms of fevers, chills, abdominal pain, change in bowel movements, chest pain, shortness on breath, urinary symptoms, chills Patient has had significant flank pain. No abdominal pain per se No lightheadedness or dizziness No rash Past medical history: 1. Renal cell carcinoma in 1985 2. Recurrent UTIs 3. Nephrolithiasis 4. Rectal cancer with low anterior resection 04/05/2014 5. Hypertension 6. PE 7. DVT in 1962 8. Glaucoma 9. Chronic pain 10. Gout 11. Tobacco use Allergies: Cipro caused hives with IV dose the 1st dose she had, nitrofurantoin caused a rash and itching Past surgical history: 1. 1985 renal cell carcinoma status post surgical resection 2. Right knee meniscal tear 3. Appendectomy in 1984 4. lithotripsy 5. Colon cancer surgery 04/05/2014, low anterior section of rectum 6. July 20 surgical repair of hip fracture by Dr. Guillen Health related behavior: Patient smokes Patient does not use illicit drugs Patient does not use alcohol Social history Patient is Patient is retired Patient originally from the [facility]. Patient has 1 son named Deejay Turcios. He lives with patient but currently is in skilled care facility Family history: Lung cancer in mom, hypertension Father with hypertension Son with hypertension and DVTs Review of systems: 12 point review of systems is otherwise negative [facility] Medical History Gout Chronic UTI Arthritis Pulmonary embolism Unspecified essential hypertension Colitis with rectal bleeding Peristomal skin complication Lumbar hernia Retained urethral stent S/p nephrectomy Anticoagulated Chronic renal disease, stage 3, moderately decreased glomerular filtration rate (GFR) between 30-59 mL/min/1.73 square meter [address]ostomy in place Leg swelling Easy bruisability Rectal carcinoma Port-A-Cath in place Neuropathy Incontinence Allergic reaction 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 Abnormal mammogram of right breast Parastomal hernia 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 Rectal cancer Surgical History History of ureter stent H/O nephrostomy H/O lithotripsy History of low anterior resection of rectum Family History Mother Hypertension Cancer Son Hypertension Grandfather Heart disease Social History marital status: number of children: 1 household members: family lives independently: Yes occupational status: previously employed and other Smoking Status: Current some day smoker Tobacco: How many years used: 60 alcohol intake: current substance use type: does not use caffeine: Yes Type(s) of exercise: none Meds Home Medications and Allergies Home Medications Medication Instructions Recorded Confirmed Type latanoprost 0.005 % eye drops 1 drp EYE-BOTH BEDTIME 02/09/18 12/18/22 History amlodipine 5 mg tablet (Norvasc) 5 mg PO QPM 03/29/18 12/18/22 History apixaban 2.5 mg tablet (Eliquis) 2.5 mg PO BID 05/06/22 12/18/22 History metoprolol tartrate 25 mg tablet 12.5 mg PO BID 05/06/22 12/18/22 History ipratropium 0.5 mg-albuterol 3 mg 3 ml inhalation 4XD 04/19/23 09/21/23 History (2.5 mg base)/3 mL nebulization soln trazodone 50 mg tablet 50 mg PO BEDTIME #30 tabs 07/19/22 12/18/22 Rx oxycodone 10 mg tablet 10 mg PO Q4H PRN Pain, Moderate 07/20/22 12/18/22 Rx (4-6) #30 tabs Allergies Allergy/AdvReac Type Severity Reaction Status Date / Time cashew nut Allergy Severe Anaphylaxis Verified 02/27/21 16:45 ciprofloxacin [CIPROFLOXACIN] Allergy Intermediate HIVES UP Verified 12/18/22 11:23 ARM RIGHT AFTER IV DOSE STARTED nitrofurantoin Allergy Intermediate rash, Verified 12/18/22 11:23 [From MACRODANTIN] itching Exam Vital Signs (past 8 hours): - 03/31/23 11:00 03/31/23 11:30 03/31/23 11:52 Pulse Rate 66 69 Respiratory Rate Blood Pressure 160/72 H Pulse Oximetry 98 96 Oxygen Delivery Method 03/31/23 11:52 03/31/23 12:00 03/31/23 12:17 Pulse Rate 68 71 Respiratory Rate 11 L Blood Pressure 161/67 H Pulse Oximetry 96 93 Oxygen Delivery Method 03/31/23 12:17 03/31/23 12:30 03/31/23 12:30 Pulse Rate 70 73 Respiratory Rate 22 Blood Pressure 172/73 H Pulse Oximetry 95 94 Oxygen Delivery Method 03/31/23 13:00 03/31/23 13:00 03/31/23 13:30 Pulse Rate 69 70 Respiratory Rate 21 23 Blood Pressure 160/72 H Pulse Oximetry 93 98 Oxygen Delivery Method Room Air 03/31/23 13:30 03/31/23 14:00 03/31/23 14:00 Pulse Rate 77 Respiratory Rate 20 Blood Pressure 163/95 H 188/83 H Pulse Oximetry 94 Oxygen Delivery Method 03/31/23 14:30 03/31/23 14:30 03/31/23 15:28 Pulse Rate 74 Respiratory Rate 26 H Blood Pressure 171/73 H 156/69 H Pulse Oximetry 93 Oxygen Delivery Method 03/31/23 15:28 03/31/23 15:30 03/31/23 15:30 Pulse Rate 76 73 Respiratory Rate 23 23 Blood Pressure 148/64 H Pulse Oximetry 96 96 Oxygen Delivery Method Room Air 03/31/23 16:00 03/31/23 16:00 03/31/23 16:30 Pulse Rate 72 74 Respiratory Rate 25 H 22 Blood Pressure 161/67 H Pulse Oximetry 95 95 Oxygen Delivery Method 03/31/23 16:30 03/31/23 17:00 03/31/23 17:00 Pulse Rate 77 Respiratory Rate 19 Blood Pressure 159/72 H 183/86 H Pulse Oximetry 96 Oxygen Delivery Method Room Air 03/31/23 17:31 03/31/23 17:31 03/31/23 18:00 Pulse Rate 71 Respiratory Rate 23 Blood Pressure 152/69 H 136/55 L Pulse Oximetry 96 Oxygen Delivery Method Room Air 03/31/23 18:00 03/31/23 18:31 03/31/23 18:31 Pulse Rate 73 68 Respiratory Rate 21 20 Blood Pressure 157/70 H Pulse Oximetry 93 92 Oxygen Delivery Method Room Air Oxygen Delivery Method Room Air Narrative Exam Narrative: Patient is afebrile in no apparent distress, vital signs are stable HEENT shows mucous membranes moist and pink with no mucosal lesions Neck is supple without adenopathy Chest: Clear to auscultation without wheezes rhonchi or crackles, prolonged expiratory phase Cor: Regular rate and rhythm with distant S1-S2 Abdomen: Obese, positive bowel sounds, soft, nontender Some left flank tenderness. No significant surrounding erythema Extremities no significant edema Neurologic exam is nonfocal Objective Labs 03/31/23 10:55 03/31/23 10:55 Labs: Laboratory Results - last 24 hr 03/31/23 03/31/23 10:55 11:17 WBC 6.0 RBC 3.59 L Hgb 8.9 L Hct 27.8 L MCV 77.7 L MCH 24.9 L MCHC 32.1 RDW 17.0 H Plt Count 346 Neut % (Auto) 72.0 Lymph % (Auto) 12.3 L Spencer % (Auto) 8.7 Eos % (Auto) 5.6 H Baso % (Auto) 1.4 Neut # (Auto) 4400 Lymph # (Auto) 700 L Spencer # (Auto) 500 Eos # (Auto) 300 Baso # (Auto) 100 Sodium 135 L Potassium 4.4 Chloride 107 Carbon Dioxide 24 BUN 20 H Creatinine 1.73 H Estimated GFR 29 L BUN/Creatinine Ratio 11.6 Glucose 99 Lactate 1.3 Calcium 9.8 Total Bilirubin 0.7 AST TNP ALT 9 Alkaline Phosphatase 106 Total Protein 7.7 Albumin 3.5 Globulin 4.2 H Albumin/Globulin Ratio 0.8 L Lipase 36 Procalcitonin 0.16 Urine RBC 30-100/hpf H Urine WBC 30-100/hpf H Ur Squamous Epith Cells 1-5 /hpf Urine Bacteria Many (>30) H Ur Culture Indicated? Specimen cultured Assessment & Plan Assessment & Plan narrative: 83-year-old female admitted for flank pain with intractable pain. Suspect related to spontaneous splenic hematoma possibly related to nephrostomy tube versus patient being on Eliquis for DVT and PE Assessment 1. Splenic hematoma Plan: Will admit for pain control. Will provide IV morphine and oral pain medications. Will recheck H&H in a.m.. Will hold Eliquis for now. Assessment 2. Nephrostomy tube with flank pain left side. Plan: At this point will go ahead and treat the splenic hematoma. We will consult with Urology seems to be working well. Flushed in the ER without difficulty. Will continue to flush on a daily basis. Assessment 3. Nephrolithiasis without current problems Plan: Will follow Assessment 4. UTIs recently on Cipro but reported allergy to IV Cipro Plan: Will await urine culture. Will hold antibiotics for now. We will follow serial CBC. Assessment 5. Hypertension Plan: Continue on amlodipine Assessment 6. History of DVT and PE with splenic hematoma Plan: Will hold Eliquis for now and till hematoma stabilized. Patient understands this is difficult decision but really the risk of bleeding outweighs the risk of blood clot at this time. Will guaiac stools. Assessment 7. Glaucoma Plan: Continue outpatient drop Assessment 8. Insomnia Plan: Continue outpatient trazodone Assessment 9. Chronic kidney disease Plan: Reviewed GFR. Will continue to monitor. Code status is DNR. Pulse form reviewed. 76 minutes spent with patient in discussing with ER physician and reviewing chart from clinic as well as [place] ER as well as ER visit workup and diagnostics. Formulating a plan and documentation.
[2023-03-31] MEDS: diazePAM 2 MG TABLET 2.5 MG PO (21:18)
[2023-04-01] MEDS: MORPHINE 4 MG/ML INJ 2 MG IV ×4 (02:22→12:56)
[2023-04-01 02:26] VITALS: BP 154/67; PULSE 80; RESP 18; TEMP 36.9; O2SAT 94
[2023-04-01] MEDS: HYDROCODONE/ACET 5/325 TABLET 1 TAB PO (04:30)
[2023-04-01 06:12] LABS: Add Manual Diff / Slide Review NO; Basophils Absolute Auto 100 /uL (0-100); Basophils Percent Auto 1.2 % (0-2); Eosinophils Absolute Auto 500 /uL (0-450); Eosinophils Percent Auto 9.5 % (2-4); Hematocrit 24.1 % (36-46); Hemoglobin 7.7 g/dL (12.0-16.0); Lymphocytes Absolute Auto 900 /uL (1100-4500); Lymphocytes Percent Auto 19.1 % (25-40); Mean Corpuscular Hemoglobin 24.8 PG (26-34); Mean Corpuscular Volume 77.6 fL (80-100); Monocytes Absolute Auto 500 /uL (0-900); Monocytes Percent Auto 10.7 % (3-14); Neutrophils Absolute Auto 2900 /uL (1500-7000); Neutrophils Percent Auto 59.5 % (50-75); Platelet Count 290 X10^3/uL (150-400); Red Blood Cell Count 3.11 X10^6/uL (4.0-5.2); Red Cell Distribution Width 17.1 % (11.6-14.8); White Blood Cell Count 4.9 X10^3/uL (4.5-11.0)
[2023-04-01 06:34] LABS: BUN Creatinine Ratio 11.3 (6-22); Blood Urea Nitrogen 18 mg/dL (7-17); Carbon Dioxide 22 mmol/L (22-32); Chloride 108 mmol/L (98-107); Estimated Glomerular Filt Rate 32 mL/min (>60); Glucose 90 mg/dL (80-110); Potassium 4.2 mmol/L (3.4-5.1); Sodium 135 mmol/L (137-145)
[2023-04-01 06:35] LABS: Alanine Aminotransferase 6 IU/L (<35); Albumin 2.7 g/dL (3.5-5.0); Albumin Globulin Ratio 0.8 (1.0-2.8); Alkaline Phosphatase 84 U/L (38-126); Bilirubin Total 0.5 mg/dL (0.2-1.3); Calcium 9.2 mg/dL (8.4-10.2); Globulin 3.6 g/dL (1.7-4.1); Total Protein 6.3 g/dL (6.3-8.2)
[2023-04-01 07:17] VITALS: BP 140/54; PULSE 74; TEMP 35.6; O2SAT 95
[2023-04-01 08:15] LABS: HEMOLYSIS < 15 (0-50)
--- NOTE | 2023-04-01 09:53 | PM.PN.1 ---
Subjective Subjective Date Patient Seen: 04/01/23 Time Patient Seen: 09:53 Interval history: Patient had an uneventful night. Still complaining of pain wants her pain medication resolved. Having difficulty moving due to significant pain. Patient is tolerating p.o. without any difficulty. She has not having nausea or vomiting and no other abdominal pain. She is making stool also. Patient denies any shortness a breath or chest pain. Urine culture came back showing preliminary greater than 100,000 colonies Gram-negative cocci. Ceftriaxone was started today. Twelve point review of systems is otherwise negative Exam Vital Signs (past 8 hours): - 04/01/23 02:26 04/01/23 07:17 Temperature 98.5 F 96.1 F L Pulse Rate 80 74 Respiratory Rate 18 Blood Pressure 154/67 H 140/54 L Pulse Oximetry 94 95 Oxygen Flow Rate 0 Oxygen Delivery Method Room Air Oxygen Flow Rate 0 Narrative Exam Narrative: Patient is alert and oriented no apparent distress Afebrile vital signs are stable HEENT is unremarkable mucous membranes moist and pink Neck: Supple without adenopathy or thyromegaly Chest: Clear to auscultation with decreased breath sounds in the bases but no wheezes rhonchi or crackles Cor: Regular rate and rhythm without a murmur Abdomen: Positive bowel sounds, soft, nontender, obese, large left anterior lateral abdominal wall hernia. Colostomy tube in place. Nephrostomy draining Extremities show left greater than right nonpitting 1+ edema. Patient's left lower leg is tender which is chronic for her. Pulses intact. Neurologic exam nonfocal Objective Labs 04/02/23 05:06 04/02/23 05:06 Labs: Laboratory Results - last 24 hr 03/31/23 03/31/23 04/01/23 10:55 11:17 06:00 WBC 6.0 4.9 RBC 3.59 L 3.11 L Hgb 8.9 L 7.7 L Hct 27.8 L 24.1 L MCV 77.7 L 77.6 L MCH 24.9 L 24.8 L MCHC 32.1 32.0 RDW 17.0 H 17.1 H Plt Count 346 290 Neut % (Auto) 72.0 59.5 Lymph % (Auto) 12.3 L 19.1 L Braxton % (Auto) 8.7 10.7 Eos % (Auto) 5.6 H 9.5 H Baso % (Auto) 1.4 1.2 Neut # (Auto) 4400 2900 Lymph # (Auto) 700 L 900 L Braxton # (Auto) 500 500 Eos # (Auto) 300 500 H Baso # (Auto) 100 100 Sodium 135 L 135 L Potassium 4.4 4.2 Chloride 107 108 H Carbon Dioxide 24 22 BUN 20 H 18 H Creatinine 1.73 H 1.59 H Estimated GFR 29 L 32 L BUN/Creatinine Ratio 11.6 11.3 Glucose 99 90 Lactate 1.3 Calcium 9.8 9.2 Total Bilirubin 0.7 0.5 AST TNP TNP ALT 9 6 Alkaline Phosphatase 106 84 Total Protein 7.7 6.3 Albumin 3.5 2.7 L Globulin 4.2 H 3.6 Albumin/Globulin Ratio 0.8 L 0.8 L Lipase 36 Procalcitonin 0.16 Urine RBC 30-100/hpf H Urine WBC 30-100/hpf H Ur Squamous Epith Cells 1-5 /hpf Urine Bacteria Many (>30) H Ur Culture Indicated? Specimen cultured [facility] Medical History Gout Chronic UTI Arthritis Pulmonary embolism Unspecified essential hypertension Colitis with rectal bleeding Peristomal skin complication Lumbar hernia Retained urethral stent S/p nephrectomy Anticoagulated Chronic renal disease, stage 3, moderately decreased glomerular filtration rate (GFR) between 30-59 mL/min/1.[address] in place Leg swelling Easy bruisability Rectal carcinoma Port-A-Cath in place Neuropathy Incontinence Allergic reaction 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 Abnormal mammogram of right breast Parastomal hernia 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 Rectal cancer Surgical History History of ureter stent H/O nephrostomy H/O lithotripsy History of low anterior resection of rectum Family History Mother Hypertension Cancer Son Hypertension Grandfather Heart disease Social History marital status: number of children: 1 household members: none lives independently: Yes occupational status: previously employed and other Smoking Status: Current some day smoker Tobacco: How many years used: 60 alcohol intake: current substance use type: does not use caffeine: Yes Type(s) of exercise: none Assessment & Plan Assessment & Plan narrative: Assessment & Plan narrative: 83-year-old female admitted for flank pain with intractable pain Assessment 1. Splenic hematoma Plan: Will admit for pain control. Will provide IV morphine and oral pain medications. Will recheck H&H in a.m.. General surgery consulted in the ER and I will ask them to formally consult today. Reached out to Dr. Girard and Dr. Key and awaiting phone call. H&H decreased today. Will recheck at 2:00 p.m.. Assessment 2. Nephrostomy tube with flank pain left side. Plan: At this point will go ahead and treat the splenic hematoma. We will consult with Urology if needed. Currently seems to be working well. Flushed in the ER without difficulty. Will continue to flush on a daily basis. Assessment 3. Nephrolithiasis without current problems Plan: Will follow Assessment 4. UTIs recently on Cipro but reported allergy to IV Cipro Plan: Continues to be afebrile and normal white blood cell count. Urine culture preliminary showing bacterial overgrowth in urine. Will go ahead and treat with ceftriaxone and will adjust pending results of culture. Assessment 5. Hypertension Plan: Continue on amlodipine and metoprolol. Blood pressure well-controlled. Assessment 6. History of DVT and PE with splenic hematoma Plan: Will hold Eliquis for now and till hematoma stabilized. Patient understands this is difficult decision but really the risk of bleeding outweighs the risk of blood clot at this time. Will guaiac stools. Assessment 7. Glaucoma Plan: Continue outpatient drops Assessment 8. Insomnia Plan: Patient does not take trazodone anymore. Assessment 9. Chronic kidney disease Plan: Reviewed GFR. Will continue to monitor. Code status is DNR. PoLSt form reviewed. Addendum: Repeat H&H is stable Discussed with Dr. Girard who graciously saw the patient. He feels that hematoma appears stable and we will continue to monitor and treat pain. Will continue to hold Eliquis Due to erythema left lower extremity a venous Doppler was done and showed less clot than there was previously. [place] to be residual clot. Will reinitiate Eliquis once we feel it is safe given splenic hematoma PT consulted. Reviewed note. Patient will need skilled care facility at discharge. 65 minutes was spent with patient discussing with nursing, physicians, meeting with patient, reviewing data in computer, formulating a plan and documentation Quality VTE Deep Vein Thrombosis/Pulmonary Embolism Present on Admission: No
[2023-04-01] MEDS: AMLODIPINE 5 MG TABLET PO (09:56)
--- NOTE | 2023-04-01 10:25 | PT.IIE ---
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 Easy bruisability Gout Incontinence Leg swelling Lumbar hernia Neuropathy 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 Pulmonary embolism Rectal cancer Rectal carcinoma Retained urethral stent S/p nephrectomy Unspecified essential hypertension Physical Therapy Inpatient Evaluation/Re-Eval M1 PT/OT-IP Prior Functional Status Start: 04/01/23 11:56 Freq: NEEDED Status: Active Protocol: Document 04/01/23 10:25 AB (Rec: 04/01/23 12:13 AB [id number]) Medical Review Prior Functional Status Medical History Reviewed Yes Communication able to make needs known Mobility and Gait pt stated that she was modified independent with all mobilities and ambulation using a FWW Social History Household Members none Living Arrangements Apartment/Condo Number of Floors (Floors) One Floor Number of Stairs To Enter/Railing? 5 steps B rails + 4 steps R rails to tner the house Home Environment Standard Height Toilet,Tub/ Shower Home Equipment Front Wheel Walker,Raised Toilet Seat w/Armrests,Tub Transfer Bench,Hand Held Shower,Grab Bars In Shower Additional Social History Comment pt stated that his son lives in the same property where she is but son have a hip fracture pt stated that she has home health services M2 PT-IP Current Condition Start: 04/01/23 11:56 Freq: NEEDED Status: Active Protocol: Document 04/01/23 10:25 AB (Rec: 04/01/23 12:13 AB [id number]) Physical Therapy Current Condition Current Condition Evaluation Date 04/01/23 Treatment Diagnosis perisplenic hematoma; flank pain; difficulty in walking Onset Date 03/31/23 M3 PT-IP Subjective Start: 04/01/23 11:56 Freq: NEEDED Status: Active Protocol: Document 04/01/23 10:25 AB (Rec: 04/01/23 12:13 AB [email or web address]) Subjective Physical Therapy Visit Type Type Initial Evaluation Visit Start Time 10:25 Visit Stop Time 11:05 Total Visit Minutes 40 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 0 Physical Therapy Visit Comments Patient Comments pt is agreeable to do PT Therapy Pain Assessment Pain When Pain Assessed At Rest Pain Present Pain Present Pain Reported Location left flank Intensity 8 Scale Used increases to 10/10 with mobiltiy Pain Behaviors Facial Grimacing,Guarding, Holding Area,Wincing M4 PT-IP Mobility and Gait Start: 04/01/23 11:56 Freq: NEEDED Status: Active Protocol: Document 04/01/23 10:25 AB (Rec: 04/01/23 12:13 AB [email or web address]) PT-Bed Mobility Assessment Supine to Sit Supine to Sit Minimal Assistance,Head of Bed Elevated,Bedrails Sit to Supine Sit to Supine Maximum Assistance PT-Transfer Assessment Sit to and From Stand Sit to and from Stand Moderate Assistance,Maximum Assistance,1 Person Assistance ,Use of Upper Extremities Equipment Transfer Assistive Device Gait Belt,Front Wheeled Walker Orthotic/Prosthetic Devices or Brace: No Comments Mobility Comments pt supine in bed and agreeable to do PT. PLOF and home set up obtained. BP: 140/55. pt c/o constant flank pain on L 8 /10 and increases to 10/10 with movement. completed supine to sit min A and cues. HOB elevated to ~ 45 deg and pt used bed rail to assist. pt required increase time to complete task. able to sit on EOB CGA. c/o increase pain. completed sit to stand mod to max A and max cues. required min to mod A for standing balance using fWW for support. pt with stooped posture and unable to stand upright with c /o pain. attempted to transfer to chair using fWW but pt was unable to take steps. tolerated ~ 1-2 minutes of standing and pt requested to sit back on EOB and lay back. scooted towards HOB SBA and foot stool provided to assist LE to push from the ground. completed sit to supine max A and max cues with LE elevation to bed. positioned pt in bed. call light and table placed within reach. Gait Assessment Comments Gait Comments unable at this time PT-Balance Assessment Sitting Balance and Reactions Static Sitting Balance Ability Good Dynamic Sitting Balance Ability Good Standing Balance and Reactions Static Standing Balance Ability Fair Device Used FWW M5 PT-IP Objective Assessments Start: 04/01/23 11:56 Freq: NEEDED Status: Active Protocol: Document 04/01/23 10:25 AB (Rec: 04/01/23 12:13 AB [email or web address]) Orientation Orientation/Cognition Level of Alertness Alert Orientation Name,Place,Situation Language Function Ability No Deficits Noted Safety Awareness Decreased Safety Awareness Memory Description No Deficits Noted Gross Range of Motion Lower Extremity ROM Assessment Within Functional Limits Strength Lower Extremity Strength Assessment Left Impaired Hip 3+/5 Knee 3+/5 Coordination Assessment Gross Coordination Gross Coordination WNL Muscle Tone Muscle Tone WNL Yes M6 PT-IP Treatment Start: 04/01/23 11:56 Freq: NEEDED Status: Active Protocol: Document 04/01/23 10:25 AB (Rec: 04/01/23 12:13 AB [email or web address]) Physical Therapy Treatment Education Education Provided Safety M7 PT-IP Assessment and Plan Start: 04/01/23 11:56 Freq: NEEDED Status: Active Protocol: Document 04/01/23 10:25 AB (Rec: 04/01/23 12:13 AB [email or web address]) PT Summary Assessment and Plan Potential Rehabilitation Potential Fair Status of Condition at Evaluation Evolving Summary Impairments Pain,ROM,Strength,Balance, Coordination,Sensation,Tone, Cognition,Bed Mobility, Transfers,Gait,Activity Tolerance Assessment Summary pt is an 83 y/o F who presented to the ED due to c/o flank pain where her nephrostomy tube is at affecting mobility at home. pt continues to c/o increase pain and also found to have a perisplenic hematoma. pt requiring min to max A with mobility but unable to transfer or ambulate at this time and continues to c/o increase pain. pt stated that her son can assist her but also stated that her son has a hip fracture. pt will require SNF rehab at this time . will continue to assess progress. Goals Bed Mobility Goal Minimal Assistance Transfer Goal Minimal Assistance,Front Wheeled Walker Gait Goal Minimal Assistance,Front Wheel Walker Gait Distance 50 Other Goals improve bed mobility, transfers, ambulation using fWW ~ 200 ft SBA up/down 5 + 4 steps B rails SBA Days to Meet Goals 10 Frequency of Treatment Frequency Of Treatment Once a Day Treatment Plan Physical Therapy Treatment Plan Bed Mobility Training,Transfer Training,Gait Training, Therapeutic Exercise,Balance Retraining,Post Op Education, Discharge Planning,Hot or Cold Pack,Neuromuscular Re-ed, Coordination Retraining,Manual Therapy Recommendations To Nursing Amount of Assist Needed Mechanical Lift Discharge Recommendations PT Discharge Recommendations SNF Rehab Transportation Needs at Discharge Wheelchair/Cabulance,Stretcher /Ambulance
[2023-04-01] MEDS: HYDROCODONE/ACET 5/325 TABLET 2 TAB PO ×3 (11:32→22:15)
[2023-04-01] MEDS: cefTRIAXone 1,000 MG in SODIUM CHLORIDE 0.9% 100 ML 200 MG IV (12:51)
--- NOTE | 2023-04-01 13:23 | P.CONS_ITS ---
History of Present Illness Consult details Date Patient Seen: 04/01/23 Chief complaint: urostomy pain Narrative: Sherlyn is an 83-year-old who presented with left flank pain which has been going on for about a week and has become more intense over the past few days. She was found to have splenic hematoma CT and confirmed with the MRI. No recent trauma. She does have a left nephrostomy tube. Meds Home Medications and Allergies Home Medications Medication Instructions Recorded Confirmed Type latanoprost 0.005 % eye drops 1 drp EYE-BOTH BEDTIME 02/09/18 03/31/23 History amlodipine 5 mg tablet (Norvasc) 5 mg PO QPM 03/29/18 03/31/23 History apixaban 2.5 mg tablet (Eliquis) 2.5 mg PO BID 05/06/22 03/31/23 History metoprolol tartrate 25 mg tablet 12.5 mg PO BID 05/06/22 03/31/23 History ipratropium 0.5 mg-albuterol 3 mg 3 ml inhalation 4XD 07/16/22 03/31/23 History (2.5 mg base)/3 mL nebulization soln oxycodone 10 mg tablet 10 mg PO Q4H PRN Pain, Moderate 07/20/22 03/31/23 Rx (4-6) #30 tabs ipratropium 20 mcg-albuterol 100 1 puff inhalation 4XD 03/31/23 03/31/23 History mcg/actuation mist for inhalation (Combivent Respimat) Allergies Allergy/AdvReac Type Severity Reaction Status Date / Time cashew nut Allergy Severe Anaphylaxis Verified 02/27/21 16:45 ciprofloxacin [CIPROFLOXACIN] Allergy Intermediate HIVES UP Verified 12/18/22 11:23 ARM RIGHT AFTER IV DOSE STARTED nitrofurantoin Allergy Intermediate rash, Verified 12/18/22 11:23 [From MACRODANTIN] itching Exam Vital Signs (past 8 hours): - 04/01/23 07:17 Temperature 96.1 F L Pulse Rate 74 Blood Pressure 140/54 L Pulse Oximetry 95 Oxygen Delivery Method Room Air Oxygen Flow Rate 0 Narrative Exam Narrative: Left flank tender to palpation No peritonitis Objective Labs 04/01/23 15:36 04/01/23 06:00 Labs: Laboratory Results - last 24 hr 04/01/23 06:00 WBC 4.9 RBC 3.11 L Hgb 7.7 L Hct 24.1 L MCV 77.6 L MCH 24.8 L MCHC 32.0 RDW 17.1 H Plt Count 290 Neut % (Auto) 59.5 Lymph % (Auto) 19.1 L [place] % (Auto) 10.7 Eos % (Auto) 9.5 H Baso % (Auto) 1.2 Neut # (Auto) 2900 Lymph # (Auto) 900 L [place] # (Auto) 500 Eos # (Auto) 500 H Baso # (Auto) 100 Sodium 135 L Potassium 4.2 Chloride 108 H Carbon Dioxide 22 BUN 18 H Creatinine 1.59 H Estimated GFR 32 L BUN/Creatinine Ratio 11.3 Glucose 90 Calcium 9.2 Total Bilirubin 0.5 AST TNP ALT 6 Alkaline Phosphatase 84 Total Protein 6.3 Albumin 2.7 L Globulin 3.6 Albumin/Globulin Ratio 0.8 L PFSH Medical History Gout Chronic UTI Arthritis Pulmonary embolism Unspecified essential hypertension Colitis with rectal bleeding Peristomal skin complication Lumbar hernia Retained urethral stent S/p nephrectomy Anticoagulated Chronic renal disease, stage 3, moderately decreased glomerular filtration rate (GFR) between 30-59 mL/min/1.73 square meter Colostomy in place Leg swelling Easy bruisability Rectal carcinoma Port-A-Cath in place Neuropathy Incontinence Allergic reaction 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 Abnormal mammogram of right breast Parastomal hernia 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 Rectal cancer Surgical History History of ureter stent H/O nephrostomy H/O lithotripsy History of low anterior resection of rectum Family History Mother Hypertension Cancer Son Hypertension Grandfather Heart disease Social History marital status: number of children: 1 household members: none lives independently: Yes occupational status: previously employed and other Tobacco & Substance Use Smoking Status: Current some day smoker Tobacco: How many years used: 60 alcohol intake: current substance use type: does not use Diet and Exercise caffeine: Yes Type(s) of exercise: none Assessment & Plan Assessment and plan (1) Spleen hematoma: Qualifiers: Encounter type: initial encounter Qualified Code(s): S36.029A - Unspecified contusion of spleen, initial encounter Status: Acute Plan Most likely cause of pain is the splenic hematoma. The hematoma appears to be fairly well contained so the risk of exsanguination his quite low. Recommend medical pain control and observation.
[2023-04-01 15:00] VITALS: BP 141/58; PULSE 70; RESP 16; TEMP 35.8; O2SAT 100
[2023-04-01 15:45] LABS: Hematocrit 25.6 % (36-46); Hemoglobin 8.2 g/dL (12.0-16.0)
--- NOTE | 2023-04-01 15:46 | CM.DANOTE ---
Initial DCP Assessment Visit Note Reviewed EMR and team rounds for pt's medical status and initial anticipated d/c needs. Met with pt at bedside, introduced self and role. Pt was found to be alert, oriented, able to participate in discussion assessing home environment and OP therapies currently being used. Payor: Medicare PCP: Dr. Grover Pt is a 83 year-old F who presented to the ED on 03/31/23 with complaints of worsening flank pain where her nephrostomy tube is, making it difficult to mobilize around her apartment. Pt was found to have a perisplenic hematoma, and was admitted for further pain control and evaluation. Surgery did consult today, pending their recommendations. Pt lives in a [id number] apartment on her son's property, where she has been living modified independently with son's assistance as needed. Pt recently fractured his hip and had surgery, so he is unable to assist her with needs at this time. She has been receiving services from [facility] , and she states that she prefers to d/c back home and resume HH rather than go to SNF rehab. DCP will follow and assist with evolving recommendations for OP resources and needs. Discharge Planning/Care Management CM Discharge Assessment Start: 04/01/23 15:36 Freq: Status: Active Protocol: Document 04/01/23 15:36 DPL (Rec: 04/01/23 15:45 DPL [id number]) Discharge Planning Assessment Assigned Routing Machine Operator THERESE Hyatt Advance Directives? Yes Advance Directives on File No History Provided By Patient,Medical Record Has Patient been admitted in last 30 No days? Prior Living Arrangements Apartment/Condo Comment lives in the mother in law unit on son's property Household Members none Type of transporation used prior to Relies on Others admit Independent with ADL's Yes Is patient alert and oriented? Yes Needs Assistance With Home Chores / Shopping Caregiver for Another No Community Services used prior to Physical Therapy,Occupational admission: Therapy,Home Health Nurse DME Already Rented / Owned Bath Bench,Elevated Toilet Seat,FWW / Walker Patient/Family Preference Home with Home Health Comment PT recommends SNF rehab at time of d/c. Pt declines that and is choosing to return home and resume [facility] . Barriers to Discharge No Comment Patient is an 82 yo female, PMH includes rectal cancer ( stable) with hx of surgery and colostomy in place, hx of PE on chronic blood thinners [place]ly [place] per patient, son lives on same property. Discharge Plan Home Transportation Arrangement TBD If patient plan is home with home health No : Has signed face to face form been completed? Inpatient Status as of 03/31/23 SNF/HH Preference Resume [facility]. Has Agency SNF been contacted No Comment SENIOR SYSTEMS ANALYST will update [facility] prior to d/c and evolving care plan recommendations. Whiteboard Updated in Patient Room with Yes name and ext. # of Routing Machine Operator Review Status In Process Please Provide Date Initial DC 04/02/23 Assessment Was Performed
--- NOTE | 2023-04-01 17:08 | DI.US.S_ITS ---
PROCEDURE: US PERIPH VENOUS LOW EXTREM LT INDICATIONS: SWELLING. HISTORY OF DVT. PLEASE COMPARE TO PRIOR. TECHNIQUE: Real-time imaging, as well as color and pulse Doppler interrogation, were performed of the lower extremity deep veins from the inguinal ligament to the popliteal fossa, with documentation of the visualized calf veins. COMPARISON: [facility], , [facility] VENOUS LOW EXTREM LT, 06/10/2021, 11:47. FINDINGS: Probable mild residual thrombus is seen within the common femoral vein through the proximal peroneal vein. No clues of thrombus. IMPRESSION: Mild nonocclusive thrombus is seen within the common femoral vein through the proximal peroneal vein, decreased compared to prior and likely representing mild residual thrombus from prior DVT. Dictated by: Jovan Rowe M.D. on 04/01/2023 at 20:00 Approved by: Jovan Rowe M.D. on 04/01/2023 at 20:03
--- NOTE | 2023-04-01 17:16 | PC.NURSE ---
Addendum entered by Chery Pickens R.N. 04/01/23 18:50: Called MD Dunne to request nyastatin powder - patient has red irritated areas on both sides of torso under skin folds. Cleaned and put zinc cream on folds while awaiting nyastatin powder. Will continue to monitor. Original Note: Day shift: Notified MD Ruiz this AM regarding patient's gram + cocci in urine - provider ordered IV ceftriaxone. H&H redrawn at 1500, increased to 8.2 and 25.6. Notified MD Aly again this evening as patient is complaining of increased LLE pain - she calls this her bad leg. LLE is also red in calf area and warm to the touch. Pt states that it has been painful for about 2 weeks, but that redness and warmth is new this afternoon. LLE is 1+ edema with inward turn of foot while at rest. US ordered for LLE. Pain - pain seems to have improved this shift. This AM, patient consistently rating pain 8/10 - IV morphine provided mild relief. PO [place] given this shift x 2, patient stated that this improved pain and patient is able to sleep and appears more comfortable. Stood at bedside with PT. Patient is still very weak and needs assistance with movement and repositioning. Nephrostomy patent and draining - helped patient flush tube x 1 today. Colostomy - clean dry and intact. No output today. Will continue to monitor.
[2023-04-01] MEDS: LATANOPROST 0.005% OPHTH 2.5 ML 1 DROPS EYE-BOTH (21:58)
[2023-04-01] MEDS: NYSTATIN POWDER 15GM 1 APPLIC TOP (22:01)
[2023-04-01 22:42] VITALS: BP 163/58; PULSE 70; RESP 16; TEMP 36.9; O2SAT 96
[2023-04-02 05:14] LABS: Add Manual Diff / Slide Review NO; Basophils Absolute Auto 100 /uL (0-100); Basophils Percent Auto 2.2 % (0-2); Eosinophils Absolute Auto 500 /uL (0-450); Eosinophils Percent Auto 11.9 % (2-4); Hematocrit 24.9 % (36-46); Lymphocytes Absolute Auto 1100 /uL (1100-4500); Lymphocytes Percent Auto 25.1 % (25-40); Mean Corpuscular HGB Conc 32.1 % (30-36); Mean Corpuscular Hemoglobin 24.9 PG (26-34); Mean Corpuscular Volume 77.6 fL (80-100); Monocytes Absolute Auto 600 /uL (0-900); Monocytes Percent Auto 12.5 % (3-14); Neutrophils Absolute Auto 2200 /uL (1500-7000); Neutrophils Percent Auto 48.3 % (50-75); Platelet Count 286 X10^3/uL (150-400); Red Blood Cell Count 3.21 X10^6/uL (4.0-5.2); Red Cell Distribution Width 17.2 % (11.6-14.8); White Blood Cell Count 4.5 X10^3/uL (4.5-11.0)
[2023-04-02] MEDS: MORPHINE 4 MG/ML INJ 2 MG IV ×2 (05:26→10:36)
[2023-04-02 05:30] LABS: Alanine Aminotransferase 7 IU/L (<35); Albumin 2.7 g/dL (3.5-5.0); Albumin Globulin Ratio 0.8 (1.0-2.8); Alkaline Phosphatase 82 U/L (38-126); Bilirubin Total 0.5 mg/dL (0.2-1.3); Blood Urea Nitrogen 17 mg/dL (7-17); Calcium 8.9 mg/dL (8.4-10.2); Carbon Dioxide 24 mmol/L (22-32); Chloride 106 mmol/L (98-107); Estimated Glomerular Filt Rate 33 mL/min (>60); Globulin 3.6 g/dL (1.7-4.1); Glucose 98 mg/dL (80-110); HEMOLYSIS < 15 (0-50); Potassium 4.1 mmol/L (3.4-5.1); Sodium 135 mmol/L (137-145); Total Protein 6.3 g/dL (6.3-8.2)
[2023-04-02 07:00] VITALS: BP 175/94; PULSE 70; RESP 16; TEMP 36.2; O2SAT 97
--- NOTE | 2023-04-02 07:18 | PM.PN.1 ---
Subjective Subjective Date Patient Seen: 04/02/23 Time Patient Seen: 07:18 Interval history: Patient had unremarkable night. Had venous Doppler done yesterday of left lower extremity and showed diminished clot from previous ultrasound representing all clot. Patient still struggles with pain control but is doing much better than on admit. Seems to be getting longer pain relief with the oral hydrocodone. No chest pain or shortness a breath or lightheadedness or dizziness Patient unable to ambulate with PT yesterday Patient has a ?bad left knee ?and is having a lot of pain in this leg. She did request that the SCDs be removed and therefore pain is better. Patient slept okay yesterday. Patient tolerating p.o. and making stool and urine Exam Vital Signs (past 8 hours): Oxygen Delivery Method Room Air Oxygen Flow Rate 0 Narrative Exam Narrative: Afebrile vital signs are stable HEENT unremarkable Neck: Supple Chest: Clear to auscultation with decreased breath sounds bibasilar but no wheezes rhonchi or crackles Cor regular rate and rhythm with distant S1-S2 Abdomen positive bowel sounds x4. Left upper quadrant tenderness is decreased but still present with palpation. No guarding or rebound. Colostomy bag in place Extremities: Decreased swelling bilateral lower extremities. No swelling of the right lower extremity left lower extremity shows diminished swelling. There is no erythema which was reported last night by nursing diffusely tender in really not able to palpate due to patient's resistance Neurologic exam nonfocal Objective Labs 04/02/23 05:06 04/02/23 05:06 Labs: Laboratory Results - last 24 hr 04/01/23 04/02/23 15:36 05:06 WBC 4.5 RBC 3.21 L Hgb 8.2 L 8.0 L Hct 25.6 L 24.9 L MCV 77.6 L MCH 24.9 L MCHC 32.1 RDW 17.2 H Plt Count 286 Neut % (Auto) 48.3 L Lymph % (Auto) 25.1 [place] % (Auto) 12.5 Eos % (Auto) 11.9 H Baso % (Auto) 2.2 H Neut # (Auto) 2200 Lymph # (Auto) 1100 [place] # (Auto) 600 Eos # (Auto) 500 H Baso # (Auto) 100 Sodium 135 L Potassium 4.1 Chloride 106 Carbon Dioxide 24 BUN 17 Creatinine 1.55 H Estimated GFR 33 L BUN/Creatinine Ratio 11.0 Glucose 98 Calcium 8.9 Total Bilirubin 0.5 AST TNP ALT 7 Alkaline Phosphatase 82 Total Protein 6.3 Albumin 2.7 L Globulin 3.6 Albumin/Globulin Ratio 0.8 L [facility] Medical History Gout Chronic UTI Arthritis Pulmonary embolism Unspecified essential hypertension Colitis with rectal bleeding Peristomal skin complication Lumbar hernia Retained urethral stent S/p nephrectomy Anticoagulated Chronic renal disease, stage 3, moderately decreased glomerular filtration rate (GFR) between 30-59 mL/min/1.73 square meter Colostomy in place Leg swelling Easy bruisability Rectal carcinoma Port-A-Cath in place Neuropathy Incontinence Allergic reaction 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 Abnormal mammogram of right breast Parastomal hernia 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 Rectal cancer Surgical History History of ureter stent H/O nephrostomy H/O lithotripsy History of low anterior resection of rectum Family History Mother Hypertension Cancer Son Hypertension Grandfather Heart disease Social History marital status: number of children: 1 household members: none lives independently: Yes occupational status: previously employed and other Smoking Status: Current some day smoker Tobacco: How many years used: 60 alcohol intake: current substance use type: does not use caffeine: Yes Type(s) of exercise: none Assessment & Plan Assessment & Plan narrative: 83-year-old female admitted for flank pain with intractable pain Assessment 1. Splenic hematoma Plan: Appreciate general surgery consultation. Will continue to hold Eliquis until we feel stable. H&H remained stable with no evidence of acute blood loss. Will continue with attempts at better pain control and better ambulation with PT. Patient adamant that she will not go to skilled care on discharge. We will see how she progresses as we get her pain under control. Assessment 2. Nephrostomy tube with flank pain left side. Plan: At this point will go ahead and treat the splenic hematoma. We will consult with Urology if needed. Currently seems to be working well. Will continue to flush on a daily basis. Assessment 3. Nephrolithiasis without current problems Plan: Will follow Assessment 4. UTIs recently on Cipro but reported allergy to IV Cipro Plan: Continues to be afebrile and normal white blood cell count. Urine culture preliminary showing bacterial overgrowth in urine. Final cultures back showing Enterococcus faecalis which is essentially pansensitive except to Cipro and Levaquin. We will go ahead and stop ceftriaxone and place her on amoxicillin with renal dosing per pharmacy. Assessment 5. Hypertension Plan: Continue on amlodipine and metoprolol. Blood pressure well-controlled. Assessment 6. History of DVT and PE with splenic hematoma Plan: Will hold Eliquis for now and till hematoma stabilized. Patient understands this is difficult decision but really the risk of bleeding outweighs the risk of blood clot at this time. Will guaiac stools. We discussed pros and cons. Reviewed venous Doppler. This point continue holding Eliquis. Assessment 7. Glaucoma Plan: Continue outpatient drops Assessment 8. Insomnia Plan: Patient does not take trazodone anymore. Assessment 9. Chronic kidney disease Plan: Reviewed GFR. Will continue to monitor. Assessment 10. Anemia of unclear etiology but suspect multifactorial including anemia of chronic disease. Patient is usually hemoglobin in the 10s and down to 8 suspect related to hematoma. Will check iron studies. Code status is DNR. PoLSt form reviewed. 56 minutes spent with patient discussing with pharmacy, nursing, meeting with patient, reviewing chart, formulating a plan and documentation. Quality VTE Deep Vein Thrombosis/Pulmonary Embolism Present on Admission: No
[2023-04-02] MEDS: AMLODIPINE 5 MG TABLET PO (08:25)
[2023-04-02] MEDS: DOCUSATE 100 MG CAPSULE PO ×2 (08:25→20:25)
[2023-04-02] MEDS: AMOXICILLIN 250 MG CAPSULE 500 MG PO ×2 (08:25→20:24)
[2023-04-02] MEDS: HYDROCODONE/ACET 5/325 TABLET 1 TAB PO (08:25)
--- NOTE | 2023-04-02 11:03 | PC.NURSE ---
nephrostomy tube flushed once.
--- NOTE | 2023-04-02 11:30 | CM.DPC ---
DCP Cont. Reviewed EMR and team rounds for updates. Pt was unable to work with PT yesterday, plan is to continue to work with PT to improve mobility, continue to work on pain control, and d/c plan is home with [facility]. Will continue to monitor for continued progress and final disposition for safe d/c.
--- NOTE | 2023-04-02 12:46 | PT.IPTN ---
Current Diagnoses Infarction of spleen (03/31/23) Unspecified contusion of spleen, initial encounter (03/31/23) Physical Therapy Treatment Note M2 PT-IP Current Condition Start: 04/01/23 11:56 Freq: NEEDED Status: Active Protocol: Document 04/01/23 10:25 AB (Rec: 04/01/23 12:13 AB [id number]) Physical Therapy Current Condition Current Condition Evaluation Date 04/01/23 Treatment Diagnosis perisplenic hematoma; flank pain; difficulty in walking Onset Date 03/31/23 M3 PT-IP Subjective Start: 04/01/23 11:56 Freq: NEEDED Status: Active Protocol: Document 04/02/23 13:38 TS (Rec: 04/02/23 13:59 TS [id number]) Subjective Physical Therapy Visit Type Type Treatment Note Visit Start Time 12:46 Visit Stop Time 13:20 Total Visit Minutes 34 Number of BOOT AND SHOE LABORER Visits 1 Physical Therapy Visit Comments Patient Comments Pt found resting in chair, reports L flank pain, pt states the pain is caused from her spleen. Pt is agreeable to PT. Therapy Pain Assessment Pain When Pain Assessed At Rest Pain Present Pain Present Pain Reported M4 PT-IP Mobility and Gait Start: 04/01/23 11:56 Freq: NEEDED Status: Active Protocol: Document 04/02/23 13:38 TS (Rec: 04/02/23 13:59 TS [id number]) PT-Transfer Assessment Sit to and From Stand Sit to and from Stand Contact Guard Assistance,1 Person Assistance,Use of Upper Extremities Equipment Transfer Assistive Device Gait Belt,Front Wheeled Walker Orthotic/Prosthetic Devices or Brace: No Comments Mobility Comments Sit to stand from chair CGA with FWW, pt is slow to stand and in pain. She ambulated in room ~30'CGA/SBA with FWW, has a slow gait due to guarding of pain. Pt sat in w/c, was brought to stairs. Stairs x3 ascending/descending CGA with B handrail assist. Pt is slow to step with stairs and is slightly unsteady. When asked to try another set pt reported fatigue and requested back to room. Sit to stand from w/c CGA with BUE support pushing from arms of chair. Pt was left in chair, all needs met. Gait Assessment Gait Gait Assistance Required: Standby Assistance,Contact Guard Assist,1 Person Assist Distance (Feet) 40 Assistive Devices Assistive Device Gait Belt,Front Wheeled Walker Orthotic/Prosthetic Devices or Brace: No Gait Deviations General Gait Pattern Antalgic,Decreased Stride Length,Decreased Feet Clearance,Step-to Gait Factors Limiting Gait Function Factors Limiting Gait Function Decreased Activity Tolerance, Decreased Strength,Pain,Poor Balance,Poor Safety Awareness Comments Gait Comments See mobility comments Stair Climbing Assessment Evaluation Level of Assist On Stairs Contact Guard Assistance,1 Person Assistance Devices Stair Climbing Assistive Devices Left Railing,Right Railing Technique/Endurance Stair Climbing Direction Ascend and Descend Stair Climbing Technique Step to Step Number of Steps Climbed 3 Comments Stair Climbing Comments See mobility comments PT-Balance Assessment Sitting Balance and Reactions Static Sitting Balance Ability Good Dynamic Sitting Balance Ability Good Standing Balance and Reactions Static Standing Balance Ability Fair Dynamic Standing Balance Ability Fair Device Used FWW M5 PT-IP Objective Assessments Start: 04/01/23 11:56 Freq: NEEDED Status: Active Protocol: Document 04/01/23 10:25 AB (Rec: 04/01/23 12:13 AB [id number]) Orientation Orientation/Cognition Level of Alertness Alert Orientation Name,Place,Situation Language Function Ability No Deficits Noted Safety Awareness Decreased Safety Awareness Memory Description No Deficits Noted Gross Range of Motion Lower Extremity ROM Assessment Within Functional Limits Strength Lower Extremity Strength Assessment Left Impaired Hip 3+/5 Knee 3+/5 Coordination Assessment Gross Coordination Gross Coordination WNL Muscle Tone Muscle Tone WNL Yes M6 PT-IP Treatment Start: 04/01/23 11:56 Freq: NEEDED Status: Active Protocol: Document 04/02/23 13:38 TS (Rec: 04/02/23 13:59 TS [id number]) Physical Therapy Treatment Education Education Provided Safety M7 PT-IP Assessment and Plan Start: 04/01/23 11:56 Freq: NEEDED Status: Active Protocol: Document 04/02/23 13:38 TS (Rec: 04/02/23 13:59 TS [id number]) PT Summary Assessment and Plan Potential Rehabilitation Potential Fair Summary Impairments Pain,ROM,Strength,Balance, Coordination,Sensation,Tone, Cognition,Bed Mobility, Transfers,Gait,Activity Tolerance Progress Towards Goals Slow Progress due to Pain,Slow Progress due to Activity Tolerance Assessment Summary Pt is made some progress with her mobility but remains limited by pain and poor activity tolerance. Pt progressed her sit to stands to CGA from bedside chair and w/c x2. She progressed her gait to ~40' CGA with use of FWW. She is slow with her movement and gait due to pain. She progressed to stairs x3 ascending/descending CGA with use of B handrails. She became fatigued and could not progress further with stairs this session. Pt has 9 steps to complete to get into her house. PT at this time recommends SNF vs Home with 24 /7 assist and HHPT. Pt's son lives on the same property but recently had a hip fx, unknown how much he would be able to assist. Pt refuses to go to SNF. Goals Bed Mobility Goal Minimal Assistance Transfer Goal Minimal Assistance,Front Wheeled Walker Gait Goal Minimal Assistance,Front Wheel Walker Gait Distance 50 Other Goals improve bed mobility, transfers, ambulation using fWW ~ 200 ft SBA up/down 5 + 4 steps B rails SBA Days to Meet Goals 10 Frequency of Treatment Frequency Of Treatment Once a Day Treatment Plan Physical Therapy Treatment Plan Bed Mobility Training,Transfer Training,Gait Training, Therapeutic Exercise,Balance Retraining,Post Op Education, Discharge Planning,Hot or Cold Pack,Neuromuscular Re-ed, Coordination Retraining,Manual Therapy Other Recommendations and Next Treatment Progress gait and stairs Focus Recommendations To Nursing Amount of Assist Needed 1 Person Assist Discharge Recommendations PT Discharge Recommendations Home with 24/7 Assist Available,Home Health,SNF Rehab Transportation Needs at Discharge Wheelchair/Cabulance,Stretcher /Ambulance
[2023-04-02] MEDS: HYDROCODONE/ACET 5/325 TABLET 2 TAB PO ×2 (13:25→19:31)
[2023-04-02] MEDS: diazePAM 2 MG TABLET 2.5 MG PO (14:57)
[2023-04-02 15:00] VITALS: BP 156/68; PULSE 78; RESP 16; TEMP 35.9; O2SAT 99
[2023-04-02] MEDS: METOPROLOL IR 25 MG TABLET 12.5 MG PO (20:24)
[2023-04-02] MEDS: diazePAM 2 MG TABLET PO (20:25)
[2023-04-02] MEDS: ONDANSETRON 4 MG ODT PO (20:25)
[2023-04-02] MEDS: LATANOPROST 0.005% OPHTH 2.5 ML 1 DROPS EYE-BOTH (20:26)
[2023-04-02] MEDS: NYSTATIN POWDER 15GM 1 APPLIC TOP (20:26)
[2023-04-02 23:29] VITALS: RESP 20
[2023-04-03 00:54] VITALS: BP 144/57; PULSE 64; RESP 16; TEMP 36.7; O2SAT 94
[2023-04-03] MEDS: ACETAMINOPHEN 325 MG TABLET 650 MG PO (02:05)
[2023-04-03 06:17] LABS: Add Manual Diff / Slide Review NO; Basophils Absolute Auto 100 /uL (0-100); Basophils Percent Auto 1.2 % (0-2); Eosinophils Absolute Auto 500 /uL (0-450); Eosinophils Percent Auto 11.7 % (2-4); Hematocrit 24.8 % (36-46); Hemoglobin 8.2 g/dL (12.0-16.0); Lymphocytes Absolute Auto 1100 /uL (1100-4500); Lymphocytes Percent Auto 24.1 % (25-40); Mean Corpuscular Hemoglobin 25.4 PG (26-34); Monocytes Absolute Auto 500 /uL (0-900); Monocytes Percent Auto 10.7 % (3-14); Neutrophils Absolute Auto 2400 /uL (1500-7000); Neutrophils Percent Auto 52.3 % (50-75); Platelet Count 296 X10^3/uL (150-400); Red Blood Cell Count 3.22 X10^6/uL (4.0-5.2); Red Cell Distribution Width 17.1 % (11.6-14.8); White Blood Cell Count 4.6 X10^3/uL (4.5-11.0)
[2023-04-03 06:26] LABS: Blood Urea Nitrogen 19 mg/dL (7-17); Calcium 8.9 mg/dL (8.4-10.2); Carbon Dioxide 22 mmol/L (22-32); Chloride 104 mmol/L (98-107); Estimated Glomerular Filt Rate 33 mL/min (>60); Glucose 91 mg/dL (80-110); HEMOLYSIS < 15 (0-50); Sodium 133 mmol/L (137-145)
[2023-04-03 06:32] LABS: HEMOLYSIS < 15 (0-50); Iron 31 ug/dL (37-170)
[2023-04-03 06:42] LABS: Percent Iron Saturation 14 % (15-50); Total Iron Binding Capacity 222 ug/dL (265-497); Transferrin 178 mg/dL (206-381)
[2023-04-03 07:01] LABS: Ferritin 36 ng/mL (11-264)
[2023-04-03 08:00] VITALS: BP 152/56; PULSE 93; RESP 14; TEMP 35.9; O2SAT 95
--- NOTE | 2023-04-03 08:38 | PM.PN.1 ---
Subjective Subjective Date Patient Seen: 04/03/23 Time Patient Seen: 08:39 Interval history: Patient seen in follow-up of multiple issues splenic hematoma UTI. History of DVT. Patient overall feeling about the same. Did get up move around yesterday which was hopeful. Pain is maybe improve. Still getting IV morphine. Intermittent but still happening. Still having trouble taking a deep breath. No other changes. Exam Vital Signs (past 8 hours): - 04/03/23 00:54 Temperature 98.1 F Pulse Rate 64 Respiratory Rate 16 Blood Pressure 144/57 H Pulse Oximetry 94 Oxygen Flow Rate 0 Oxygen Delivery Method Room Air Oxygen Flow Rate 0 Narrative Exam Narrative: Alert elderly female lying in bed with pain obvious with breathing. No other changes. Lungs are clear heart is regular rate and rhythm abdomen is benign extremities normal neurologic exam is unremarkable Objective Labs 04/03/23 05:45 04/03/23 05:45 Labs: Laboratory Results - last 24 hr 04/03/23 05:45 WBC 4.6 RBC 3.22 L Hgb 8.2 L Hct 24.8 L MCV 77.0 L MCH 25.4 L MCHC 33.0 RDW 17.1 H Plt Count 296 Neut % (Auto) 52.3 Lymph % (Auto) 24.1 L [place] % (Auto) 10.7 Eos % (Auto) 11.7 H Baso % (Auto) 1.2 Neut # (Auto) 2400 Lymph # (Auto) 1100 [place] # (Auto) 500 Eos # (Auto) 500 H Baso # (Auto) 100 Sodium 133 L Potassium 4.0 Chloride 104 Carbon Dioxide 22 BUN 19 H Creatinine 1.58 H Estimated GFR 33 L BUN/Creatinine Ratio 12.0 Glucose 91 Calcium 8.9 Iron 31 L TIBC 222 L % Saturation 14 L Transferrin 178 L Ferritin 36 PFSH Medical History Gout Chronic UTI Arthritis Pulmonary embolism Unspecified essential hypertension Colitis with rectal bleeding Peristomal skin complication Lumbar hernia Retained urethral stent S/p nephrectomy Anticoagulated Chronic renal disease, stage 3, moderately decreased glomerular filtration rate (GFR) between 30-59 mL/min/1.73 square meter [address]ostomy in place Leg swelling Easy bruisability Rectal carcinoma Port-A-Cath in place Neuropathy Incontinence Allergic reaction 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 Abnormal mammogram of right breast Parastomal hernia 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 Rectal cancer Surgical History History of ureter stent H/O nephrostomy H/O lithotripsy History of low anterior resection of rectum Family History Mother Hypertension Cancer Son Hypertension Grandfather Heart disease Social History marital status: number of children: 1 household members: none lives independently: Yes occupational status: previously employed and other Smoking Status: Current some day smoker Tobacco: How many years used: 60 alcohol intake: current substance use type: does not use caffeine: Yes Type(s) of exercise: none Assessment & Plan Assessment & Plan narrative: Assessment wound splenic hematoma. Still with significant issues. Mostly with pain control. We will continue to follow H&H and it remained stable. Will need to be off anticoagulation for some time unclear what that is but certainly not going back any time soon. Patient somewhat improving his pain and will need to follow. UTI. Growing MRSA. Will start vanco after discussion with pharmacist. Also had Enterococcus which should respond to vanco. Hopefully we can discontinue prior to discharge. Going to be difficult to pick an oral medication. Nephrostomy tube with hydronephrosis. Seems to be functioning well. Will continue to follow. Hypertension. Stable. Will follow. History of DVT and PE with splenic hematoma. Ultrasound yesterday showed no new clots. Just old clot. We are going to have to take some risk for her DVT and will continue that. No other changes. Questions whether we can put her on low-dose Lovenox discussed with pharmacist do not feel like that would be a good answered at this time. Will continue SCDs. And follow. Glaucoma. Continue patient drops. Insomnia stable. Chronic kidney disease will continue to follow. Anemia. Question secondary to bleed. Stable at this time. Combination of acute and chronic. 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 Code status DNR GI prophylaxis not needed Disposition. Patient refusing sniff. Will have to get her mobilized with pain control once we do that we should be able to send her home. My guess is that is going to be 2-3 days. Discussed with the patient she understands 60 minutes spent with the patient reviewing chart discussion with doctors dictation orders Quality VTE Deep Vein Thrombosis/Pulmonary Embolism Present on Admission: No
[2023-04-03] MEDS: METOPROLOL IR 25 MG TABLET 12.5 MG PO ×2 (08:55→20:28)
[2023-04-03] MEDS: DOCUSATE 100 MG CAPSULE PO ×2 (08:55→20:29)
[2023-04-03] MEDS: HYDROCODONE/ACET 5/325 TABLET 2 TAB PO (08:55)
[2023-04-03] MEDS: AMLODIPINE 5 MG TABLET PO (08:55)
[2023-04-03] MEDS: diazePAM 2 MG TABLET PO (08:55)
[2023-04-03] MEDS: LINEZOLID 600 MG/300 ML IV.SOLN IV ×2 (09:34→20:34)
[2023-04-03 10:00] LABS: Add Manual Diff / Slide Review NO; Basophils Absolute Auto 100 /uL (0-100); Basophils Percent Auto 1.3 % (0-2); Eosinophils Absolute Auto 500 /uL (0-450); Eosinophils Percent Auto 10.3 % (2-4); Hematocrit 25.4 % (36-46); Hemoglobin 8.1 g/dL (12.0-16.0); Lymphocytes Absolute Auto 1000 /uL (1100-4500); Lymphocytes Percent Auto 18.8 % (25-40); Mean Corpuscular HGB Conc 32.1 % (30-36); Mean Corpuscular Volume 77.8 fL (80-100); Monocytes Absolute Auto 500 /uL (0-900); Monocytes Percent Auto 9.7 % (3-14); Neutrophils Absolute Auto 3100 /uL (1500-7000); Neutrophils Percent Auto 59.9 % (50-75); Platelet Count 301 X10^3/uL (150-400); Red Blood Cell Count 3.27 X10^6/uL (4.0-5.2); Red Cell Distribution Width 17.2 % (11.6-14.8); White Blood Cell Count 5.2 X10^3/uL (4.5-11.0)
[2023-04-03 10:17] LABS: Alanine Aminotransferase 9 IU/L (<35); Albumin 2.8 g/dL (3.5-5.0); Albumin Globulin Ratio 0.7 (1.0-2.8); Alkaline Phosphatase 89 U/L (38-126); BUN Creatinine Ratio 12.3 (6-22); Bilirubin Total 0.5 mg/dL (0.2-1.3); Blood Urea Nitrogen 20 mg/dL (7-17); Calcium 9.2 mg/dL (8.4-10.2); Carbon Dioxide 23 mmol/L (22-32); Chloride 104 mmol/L (98-107); Estimated Glomerular Filt Rate 31 mL/min (>60); Glucose 88 mg/dL (80-110); HEMOLYSIS < 15 (0-50); Sodium 133 mmol/L (137-145); Total Protein 6.8 g/dL (6.3-8.2)
--- NOTE | 2023-04-03 10:35 | CM.DPC ---
Reviewed EMR and team rounds for status updates. Plan is to continue pain control, pt's urine culture was positive for MRSA, so was started on IV Vancomycin. D/C continues to be home with [facility] . They will need new orders at d/c in order to resume.
--- NOTE | 2023-04-03 11:43 | PT.IPTN ---
Current Diagnoses Infarction of spleen (03/31/23) Unspecified contusion of spleen, initial encounter (03/31/23) Physical Therapy Treatment Note M2 PT-IP Current Condition Start: 04/01/23 11:56 Freq: NEEDED Status: Active Protocol: Document 04/03/23 11:17 DCW (Rec: 04/03/23 11:59 DCW [id number]) Physical Therapy Current Condition Current Condition Evaluation Date 04/01/23 Treatment Diagnosis perisplenic hematoma; flank pain; difficulty in walking Onset Date 03/31/23 M3 PT-IP Subjective Start: 04/01/23 11:56 Freq: NEEDED Status: Active Protocol: Document 04/03/23 11:17 DCW (Rec: 04/03/23 11:59 DCW [id number]) Subjective Physical Therapy Visit Type Type Treatment Note Visit Start Time 11:17 Visit Stop Time 11:43 Total Visit Minutes 26 Number of SEA SHELL GATHERER Visits 0 Physical Therapy Visit Comments Patient Comments Pt supine with head elevated in bed, notes her pain is a little better controlled today, but is still incredibly painful. Therapy Pain Assessment Pain When Pain Assessed At Rest Pain Present Pain Present Pain Reported M4 PT-IP Mobility and Gait Start: 04/01/23 11:56 Freq: NEEDED Status: Active Protocol: Document 04/03/23 11:17 DCW (Rec: 04/03/23 11:59 DCW [id number]) PT-Bed Mobility Assessment Supine to Sit Supine to Sit Contact Guard Assistance,Head of Bed Elevated,Bedrails PT-Transfer Assessment Comments Mobility Comments Sitting EOB->Stand CGA /c FWW, slow movements due to severe pain, no loss of balance, instyability, or complaints of lightheadedness Gait Assessment Gait Gait Assistance Required: Contact Guard Assist,1 Person Assist Distance (Feet) 70 Assistive Devices Assistive Device Gait Belt,Front Wheeled Walker Orthotic/Prosthetic Devices or Brace: No Gait Deviations General Gait Pattern Antalgic,Decreased Stride Length,Decreased Feet Clearance,Flexed Trunk,Step-to Gait Factors Limiting Gait Function Factors Limiting Gait Function Decreased Activity Tolerance, Decreased Strength,Pain,Poor Balance,Poor Safety Awareness Comments Gait Comments Ambulated in room 70' CGA /c FWW. needed to stop multiple times strictly due to pain, no noted signs of SOB or weakness, no LOB. Pt chose to get into recliner, left with needs within reach. Informed RN of need to drain cath bag. PT-Balance Assessment Sitting Balance and Reactions Static Sitting Balance Ability Good Dynamic Sitting Balance Ability Good Standing Balance and Reactions Static Standing Balance Ability Fair Dynamic Standing Balance Ability Fair Device Used FWW M5 PT-IP Objective Assessments Start: 04/01/23 11:56 Freq: NEEDED Status: Active Protocol: Document 04/01/23 10:25 AB (Rec: 04/01/23 12:13 AB [id number]) Orientation Orientation/Cognition Level of Alertness Alert Orientation Name,Place,Situation Language Function Ability No Deficits Noted Safety Awareness Decreased Safety Awareness Memory Description No Deficits Noted Gross Range of Motion Lower Extremity ROM Assessment Within Functional Limits Strength Lower Extremity Strength Assessment Left Impaired Hip 3+/5 Knee 3+/5 Coordination Assessment Gross Coordination Gross Coordination WNL Muscle Tone Muscle Tone WNL Yes M6 PT-IP Treatment Start: 04/01/23 11:56 Freq: NEEDED Status: Active Protocol: Document 04/02/23 13:38 TS (Rec: 04/02/23 13:59 TS [id number]) Physical Therapy Treatment Education Education Provided Safety M7 PT-IP Assessment and Plan Start: 04/01/23 11:56 Freq: NEEDED Status: Active Protocol: Document 04/03/23 11:17 DCW (Rec: 04/03/23 11:59 DCW [id number]) PT Summary Assessment and Plan Potential Rehabilitation Potential Fair Summary Impairments Pain,ROM,Strength,Balance, Coordination,Sensation,Tone, Cognition,Bed Mobility, Transfers,Gait,Activity Tolerance Progress Towards Goals Slow Progress due to Pain,Slow Progress due to Activity Tolerance Assessment Summary Small progression with tolerance to ambulation, decreased assistance with gait and transfers. Continues to be severely limited in activity participation and mobility due to pain. Due to limited assistance at home and severe pain limiting patient' s ability to care for herself and mobilize, continue to recommend SNF at this time. If pain becomes better controlled, may be appropriate for d/c home with 20/10 assist . Goals Bed Mobility Goal Minimal Assistance Transfer Goal Minimal Assistance,Front Wheeled Walker Gait Goal Minimal Assistance,Front Wheel Walker Gait Distance 50 Other Goals improve bed mobility, transfers, ambulation using fWW ~ 200 ft SBA up/down 5 + 4 steps B rails SBA Days to Meet Goals 10 Frequency of Treatment Frequency Of Treatment Once a Day Treatment Plan Physical Therapy Treatment Plan Bed Mobility Training,Transfer Training,Gait Training, Therapeutic Exercise,Balance Retraining,Post Op Education, Discharge Planning,Hot or Cold Pack,Neuromuscular Re-ed, Coordination Retraining,Manual Therapy Other Recommendations and Next Treatment Progress gait and stairs Focus Recommendations To Nursing Amount of Assist Needed 1 Person Assist Discharge Recommendations PT Discharge Recommendations Home with 20/10 Assist Available,Home Health,SNF Rehab Transportation Needs at Discharge Wheelchair/Cabulance,Stretcher /Ambulance
[2023-04-03 15:25] LABS: Aspartate Aminotransferase 17 IU/L (14-36)
[2023-04-03 15:27] LABS: Aspartate Aminotransferase 15 IU/L (14-36)
[2023-04-03 15:53] LABS: Aspartate Aminotransferase 16 IU/L (14-36)
[2023-04-03 16:00] VITALS: BP 147/66; PULSE 68; RESP 16; TEMP 35.9; O2SAT 96
[2023-04-03 16:50] LABS: Aspartate Aminotransferase 14 IU/L (14-36)
[2023-04-03] MEDS: HYDROCODONE/ACET 5/325 TABLET 1 TAB PO (17:46)
[2023-04-03 20:21] VITALS: BP 145/63; PULSE 64; RESP 16; TEMP 36.8; O2SAT 95
[2023-04-03] MEDS: LATANOPROST 0.005% OPHTH 2.5 ML 1 DROPS EYE-BOTH (20:29)
[2023-04-03] MEDS: SODIUM CHLORIDE 0.9% FLUSH 10 ML IV (20:34)
[2023-04-03] MEDS: FAMOTIDINE 20 MG TABLET PO (20:43)
[2023-04-04 00:15] VITALS: BP 146/53; PULSE 62; RESP 16; TEMP 36.6; O2SAT 96
[2023-04-04 08:00] VITALS: BP 159/63; PULSE 70; RESP 16; TEMP 36.4; O2SAT 98
[2023-04-04] MEDS: FAMOTIDINE 20 MG TABLET PO (08:36)
[2023-04-04] MEDS: METOPROLOL IR 25 MG TABLET 12.5 MG PO ×2 (08:37→21:07)
[2023-04-04] MEDS: SODIUM CHLORIDE 0.9% FLUSH 10 ML IV ×2 (08:37→21:45)
[2023-04-04] MEDS: AMLODIPINE 5 MG TABLET PO (08:37)
[2023-04-04] MEDS: HYDROCODONE/ACET 5/325 TABLET 2 TAB PO (08:38)
[2023-04-04] MEDS: LINEZOLID 600 MG/300 ML IV.SOLN IV ×2 (09:30→21:07)
--- NOTE | 2023-04-04 11:08 | PM.PN.1 ---
Subjective Subjective Date Patient Seen: 04/04/23 Time Patient Seen: 11:00 Interval history: Patient seen for follow up of multiple issues including splenic hematoma and UTI. She feels like her pain is improved today however she has not yet gotten out of bed. She will work with PT to get out of bed this afternoon. No other significant changes. Exam Vital Signs (past 8 hours): - 04/04/23 08:00 Temperature 97.6 F Pulse Rate 70 Respiratory Rate 16 Blood Pressure 159/63 H Pulse Oximetry 98 Oxygen Delivery Method Room Air Oxygen Flow Rate 0 Narrative Exam Narrative: Alert elderly female laying comfortably in bed. No acute or respiratory distress. Objective Labs 04/03/23 09:40 04/03/23 09:40 Labs: Laboratory Results - last 24 hr 03/31/23 04/01/23 04/02/23 10:55 06:00 05:06 AST 16 14 15 04/03/23 09:40 AST 17 PFSH Medical History Gout Chronic UTI Arthritis Pulmonary embolism Unspecified essential hypertension Colitis with rectal bleeding Peristomal skin complication Lumbar hernia Retained urethral stent S/p nephrectomy Anticoagulated Chronic renal disease, stage 3, moderately decreased glomerular filtration rate (GFR) between 30-59 mL/min/1.[address] square [address] in place Leg swelling Easy bruisability Rectal carcinoma Port-A-Cath in place Neuropathy Incontinence Allergic reaction 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 Abnormal mammogram of right breast Parastomal hernia 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 Rectal cancer Surgical History History of ureter stent H/O nephrostomy H/O lithotripsy History of low anterior resection of rectum Family History Mother Hypertension Cancer Son Hypertension Grandfather Heart disease Social History marital status: number of children: 1 household members: none lives independently: Yes occupational status: previously employed and other Smoking Status: Current some day smoker Tobacco: How many years used: 60 alcohol intake: current substance use type: does not use caffeine: Yes Type(s) of exercise: none Assessment & Plan Assessment & Plan narrative: Splenic hematoma. Ongoing issues with pain control. We will continue to follow H&H. Will need to be off anticoagulation for some time unclear what that is but certainly not going back any time soon. UTI. Growing MRSA + enterococcus. Started on vancomycin with switch to linezolid. Hopefully we can discontinue prior to discharge. Going to be difficult to pick an oral medication. Nephrostomy tube with hydronephrosis. No concerns. Continue to follow. Hypertension. Stable. Will follow. History of DVT and PE with splenic hematoma. Ultrasound yesterday 03/31 showed no new clots. Just old clot. We are going to have to take some risk for her DVT and will continue that. No other changes. Discussed low-dose lovenox with pharmacist and decided against. Will continue SCDs. And follow. Glaucoma. Continue patient drops. Insomnia stable. Chronic kidney disease will continue to follow. Anemia. Question secondary to bleed. Stable at this time. Combination of acute and chronic. 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 Code status DNR GI prophylaxis not needed Disposition. Patient refusing sniff. Will have to get her mobilized with pain control once we do that we should be able to send her home. My guess is that is going to be 2-3 days. Discussed with the patient she understands Quality VTE Deep Vein Thrombosis/Pulmonary Embolism Present on Admission: No
--- NOTE | 2023-04-04 11:40 | PT.IPTN ---
Current Diagnoses Infarction of spleen (03/31/23) Unspecified contusion of spleen, initial encounter (03/31/23) Physical Therapy Treatment Note M2 PT-IP Current Condition Start: 04/01/23 11:56 Freq: NEEDED Status: Active Protocol: Document 04/03/23 11:17 DCW (Rec: 04/03/23 11:59 DCW [id number]) Physical Therapy Current Condition Current Condition Evaluation Date 04/01/23 Treatment Diagnosis perisplenic hematoma; flank pain; difficulty in walking Onset Date 03/31/23 M3 PT-IP Subjective Start: 04/01/23 11:56 Freq: NEEDED Status: Active Protocol: Document 04/04/23 11:40 AB (Rec: 04/04/23 13:10 AB [id number]) Subjective Physical Therapy Visit Type Type Treatment Note Visit Start Time 11:40 Visit Stop Time 12:02 Total Visit Minutes 22 Number of MARKETING CLERK Visits 0 Physical Therapy Visit Comments Patient Comments pt is agreeable to do PT Therapy Pain Assessment Pain When Pain Assessed At Rest Location left flank Intensity 4 Scale Used Numeric (0 - 10) M4 PT-IP Mobility and Gait Start: 04/01/23 11:56 Freq: NEEDED Status: Active Protocol: Document 04/04/23 11:40 AB (Rec: 04/04/23 13:10 AB [id number]) PT-Transfer Assessment Sit to and From Stand Sit to and from Stand Standby Assistance,1 Person Assistance Equipment Transfer Assistive Device Gait Belt,Front Wheeled Walker Orthotic/Prosthetic Devices or Brace: No Gait Assessment Gait Gait Assistance Required: Standby Assistance Distance (Feet) 40 Able to Maintain Weight Bearing Status Yes During Gait Assistive Devices Assistive Device Gait Belt,Front Wheeled Walker Orthotic/Prosthetic Devices or Brace: No Gait Deviations General Gait Pattern Decreased Stride Length, Decreased Feet Clearance,Step- to Gait Factors Limiting Gait Function Factors Limiting Gait Function Decreased Activity Tolerance, Decreased Strength,Pain,Poor Balance Comments Gait Comments pt sitting on the chair and agreed to do PT. NAC stated that pt just had a bed bath. pt completed sit to stand from the chair SBA and ambulated in room using fWW SBA ~ 40 ft. pt sat back on the chair. pt refused to do stair climbing training but agreed to do it tomorrow. positioned pt on the chair. set up for lunch. call light within reach. M5 PT-IP Objective Assessments Start: 04/01/23 11:56 Freq: NEEDED Status: Active Protocol: Document 04/01/23 10:25 AB (Rec: 04/01/23 12:13 AB [id number]) Orientation Orientation/Cognition Level of Alertness Alert Orientation Name,Place,Situation Language Function Ability No Deficits Noted Safety Awareness Decreased Safety Awareness Memory Description No Deficits Noted Gross Range of Motion Lower Extremity ROM Assessment Within Functional Limits Strength Lower Extremity Strength Assessment Left Impaired Hip 3+/5 Knee 3+/5 Coordination Assessment Gross Coordination Gross Coordination WNL Muscle Tone Muscle Tone WNL Yes M6 PT-IP Treatment Start: 04/01/23 11:56 Freq: NEEDED Status: Active Protocol: Document 04/04/23 11:40 AB (Rec: 04/04/23 13:10 AB [id number]) Physical Therapy Treatment Education Education Provided Safety M7 PT-IP Assessment and Plan Start: 04/01/23 11:56 Freq: NEEDED Status: Active Protocol: Document 04/04/23 11:40 AB (Rec: 04/04/23 13:10 AB [id number]) PT Summary Assessment and Plan Potential Rehabilitation Potential Fair Summary Impairments Pain,ROM,Strength,Balance, Cognition,Bed Mobility, Transfers,Gait,Activity Tolerance Progress Towards Goals Slow Progress due to Pain,Slow Progress due to Activity Tolerance Assessment Summary pt requiring SBA with ambulation using FWW but continues to have decrease activity tolerance affecting mobility independence. pt wants to go home and stated that her son will be able to assist her. pt will need HHPT . will continue to assess. Goals Bed Mobility Goal Minimal Assistance Transfer Goal Minimal Assistance,Front Wheeled Walker Gait Goal Minimal Assistance,Front Wheel Walker Gait Distance 50 Other Goals improve bed mobility, transfers, ambulation using fWW ~ 200 ft SBA up/down 5 + 4 steps B rails SBA Days to Meet Goals 10 Frequency of Treatment Frequency Of Treatment Once a Day Treatment Plan Physical Therapy Treatment Plan Bed Mobility Training,Transfer Training,Gait Training, Therapeutic Exercise,Balance Retraining,Post Op Education, Discharge Planning,Hot or Cold Pack,Neuromuscular Re-ed, Coordination Retraining,Manual Therapy Precautions Other Precautions contact precautions: MRSA on urostomy site Recommendations To Nursing Amount of Assist Needed 1 Person Assist Discharge Recommendations PT Discharge Recommendations Home with Assistance,Home Health Transportation Needs at Discharge Private Vehicle,Wheelchair/ Cabulance
[2023-04-04 12:34] LABS: Add Manual Diff / Slide Review NO; Basophils Absolute Auto 0 /uL (0-100); Basophils Percent Auto 0.7 % (0-2); Eosinophils Absolute Auto 500 /uL (0-450); Hematocrit 27.3 % (36-46); Hemoglobin 8.7 g/dL (12.0-16.0); Lymphocytes Absolute Auto 1100 /uL (1100-4500); Lymphocytes Percent Auto 19.6 % (25-40); Mean Corpuscular HGB Conc 31.8 % (30-36); Mean Corpuscular Hemoglobin 24.8 PG (26-34); Monocytes Absolute Auto 500 /uL (0-900); Neutrophils Absolute Auto 3300 /uL (1500-7000); Neutrophils Percent Auto 61.7 % (50-75); Platelet Count 326 X10^3/uL (150-400); Red Cell Distribution Width 17.2 % (11.6-14.8); White Blood Cell Count 5.4 X10^3/uL (4.5-11.0)
--- NOTE | 2023-04-04 13:53 | CM.DPC ---
DCP HH planning cont: Per MD, pt making some progress but still treating her MRSA and anemia and her pain had been limiting her mobility. Pt likely here another 1-2 days pending progress. Per PT, pt was better able to participate in therapy today and recommending home with assist and HH. Pt lives on son's property and family checks on pt regularly. SW called [facility] and confirmed pt's HH cert is up tomorrow 04/05/23 and therefore they will need new F2F and orders at d/c and SW faxed clinicals to review and F2F and orders completed but not faxed yet. Plan: SW to follow closely for possible d/c home via family POV tomorrow if medically stable and to fax d/c summ, F2F, and HH orders to [facility] for onging services and supports. THERESE Chung
[2023-04-04 14:50] LABS: BUN Creatinine Ratio 12.9 (6-22); Blood Urea Nitrogen 20 mg/dL (7-17); Calcium 9.4 mg/dL (8.4-10.2); Carbon Dioxide 23 mmol/L (22-32); Chloride 105 mmol/L (98-107); Estimated Glomerular Filt Rate 33 mL/min (>60); Glucose 108 mg/dL (80-110); HEMOLYSIS < 15 (0-50); Potassium 4.5 mmol/L (3.4-5.1); Sodium 133 mmol/L (137-145)
--- NOTE | 2023-04-04 16:50 | PC.NURSE ---
Activity: Up more today, she feels better and has been more active. Sat in chair for several hours. Po pain meds have been effective for pain. Pain has improved across abd. She thinks the antibiotics are starting to work now. Hopes she can home on Thursday. Mobility has improved so she believes she can go home with . Cont with plan of care.
[2023-04-04 18:00] VITALS: BP 146/59; RESP 16; TEMP 36.6; O2SAT 98
[2023-04-04 20:20] VITALS: BP 117/52; PULSE 111; RESP 17; TEMP 36.4; O2SAT 93
[2023-04-04 20:37] VITALS: BP 159/62; PULSE 65; RESP 17; TEMP 36.9; O2SAT 98
[2023-04-04] MEDS: HYDROCODONE/ACET 5/325 TABLET 1 TAB PO (21:09)
[2023-04-04] MEDS: LATANOPROST 0.005% OPHTH 2.5 ML 1 DROPS EYE-BOTH (21:44)
[2023-04-05] MEDS: NYSTATIN POWDER 15GM 1 APPLIC TOP (05:47)
[2023-04-05 06:01] VITALS: BP 163/68; PULSE 62; RESP 18; TEMP 35.9; O2SAT 95
[2023-04-05 08:12] VITALS: BP 164/71; PULSE 67; RESP 16; TEMP 36.8; O2SAT 95
[2023-04-05] MEDS: LINEZOLID 600 MG/300 ML IV.SOLN IV ×2 (10:19→20:58)
[2023-04-05] MEDS: FAMOTIDINE 20 MG TABLET PO (10:20)
[2023-04-05] MEDS: AMLODIPINE 5 MG TABLET PO (10:20)
[2023-04-05] MEDS: METOPROLOL IR 25 MG TABLET 12.5 MG PO ×2 (10:20→20:58)
[2023-04-05] MEDS: HYDROCODONE/ACET 5/325 TABLET 1 TAB PO (10:47)
--- NOTE | 2023-04-05 10:50 | PM.PN.1 ---
Subjective Subjective Date Patient Seen: 04/05/23 Time Patient Seen: 10:00 Interval history: Patient seen for follow up of multiple issues including splenic hematoma and UTI. Pain is somewhat worsened today after working with PT yesterday. She will continue to work with PT and getting out of bed as she does desire to go home independently. Exam Vital Signs (past 8 hours): - 04/05/23 06:01 04/05/23 08:12 Temperature 96.7 F L 98.2 F Pulse Rate 62 67 Respiratory Rate 18 16 Blood Pressure 163/68 H 164/71 H Pulse Oximetry 95 95 Oxygen Flow Rate 0 Oxygen Delivery Method Room Air Oxygen Flow Rate 0 Narrative Exam Narrative: Alert elderly female laying comfortably in bed. No acute or respiratory distress. Objective Labs 04/04/23 12:25 04/04/23 12:25 Labs: Laboratory Results - last 24 hr 04/04/23 12:25 WBC 5.4 RBC 3.50 L Hgb 8.7 L Hct 27.3 L MCV 78.0 L MCH 24.8 L MCHC 31.8 RDW 17.2 H Plt Count 326 Neut % (Auto) 61.7 Lymph % (Auto) 19.6 L [place] % (Auto) 9.0 Eos % (Auto) 9.0 H Baso % (Auto) 0.7 Neut # (Auto) 3300 Lymph # (Auto) 1100 [place] # (Auto) 500 Eos # (Auto) 500 H Baso # (Auto) 0 Sodium 133 L Potassium 4.5 Chloride 105 Carbon Dioxide 23 BUN 20 H Creatinine 1.55 H Estimated GFR 33 L BUN/Creatinine Ratio 12.9 Glucose 108 Calcium 9.4 PFSH Medical History Gout Chronic UTI Arthritis Pulmonary embolism Unspecified essential hypertension Colitis with rectal bleeding Peristomal skin complication Lumbar hernia Retained urethral stent S/p nephrectomy Anticoagulated Chronic renal disease, stage 3, moderately decreased glomerular filtration rate (GFR) between 30-59 mL/min/1.73 square meter [address]ostomy in place Leg swelling Easy bruisability Rectal carcinoma Port-A-Cath in place Neuropathy Incontinence Allergic reaction 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 Abnormal mammogram of right breast Parastomal hernia 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 Rectal cancer Surgical History History of ureter stent H/O nephrostomy H/O lithotripsy History of low anterior resection of rectum Family History Mother Hypertension Cancer Son Hypertension Grandfather Heart disease Social History marital status: number of children: 1 household members: none lives independently: Yes occupational status: previously employed and other Smoking Status: Current some day smoker Tobacco: How many years used: 60 alcohol intake: current substance use type: does not use caffeine: Yes Type(s) of exercise: none Assessment & Plan Assessment and plan (1) Spleen hematoma: Qualifiers: Encounter type: initial encounter Qualified Code(s): S36.029A - Unspecified contusion of spleen, initial encounter Status: Acute (2) Chronic UTI: Status: Acute (3) H/O nephrostomy: Status: Acute (4) Chronic renal disease, stage 3, moderately decreased glomerular filtration rate (GFR) between 30-59 mL/min/1.73 square meter: Problem details: Status: Chronic Plan Splenic hematoma. Ongoing issues with pain control. We will continue to follow H&H. Will need to be off anticoagulation for some time unclear what that is but certainly not going back any time soon. UTI. Growing MRSA + enterococcus. Started on vancomycin with switch to linezolid. Hopefully we can discontinue prior to discharge. Going to be difficult to pick an oral medication. Nephrostomy tube with hydronephrosis. No concerns. Continue to follow. Hypertension. Stable. Will follow. History of DVT and PE with splenic hematoma. Ultrasound yesterday 03/31 showed no new clots. Just old clot. We are going to have to take some risk for her DVT and will continue that. No other changes. Discussed low-dose lovenox with pharmacist and decided against. Will continue SCDs. And follow. Glaucoma. Continue patient drops. Insomnia stable. Chronic kidney disease will continue to follow. Anemia. Question secondary to bleed. Stable at this time. Combination of acute and chronic. 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 Code status DNR GI prophylaxis not needed Disposition. Patient refusing sniff. Ongoing issues with pain and mobilization. Will have to get her mobilized with pain control once we do that we should be able to send her home. Additional 1-2 days needed. Time Spent With Patient Time with patient: 30 to 49 minutes with 50% spent counseling/coordinating care Quality VTE Deep Vein Thrombosis/Pulmonary Embolism Present on Admission: No
[2023-04-05 12:25] LABS: Add Manual Diff / Slide Review NO; Basophils Absolute Auto 100 /uL (0-100); Basophils Percent Auto 1.3 % (0-2); Eosinophils Absolute Auto 500 /uL (0-450); Eosinophils Percent Auto 9.2 % (2-4); Hematocrit 27.3 % (36-46); Hemoglobin 8.6 g/dL (12.0-16.0); Lymphocytes Absolute Auto 1000 /uL (1100-4500); Lymphocytes Percent Auto 18.6 % (25-40); Mean Corpuscular HGB Conc 31.6 % (30-36); Mean Corpuscular Hemoglobin 24.5 PG (26-34); Mean Corpuscular Volume 77.5 fL (80-100); Monocytes Absolute Auto 500 /uL (0-900); Monocytes Percent Auto 9.1 % (3-14); Neutrophils Absolute Auto 3400 /uL (1500-7000); Neutrophils Percent Auto 61.8 % (50-75); Platelet Count 320 X10^3/uL (150-400); Red Blood Cell Count 3.52 X10^6/uL (4.0-5.2); Red Cell Distribution Width 17.7 % (11.6-14.8); White Blood Cell Count 5.5 X10^3/uL (4.5-11.0)
[2023-04-05 12:49] LABS: Alanine Aminotransferase 10 IU/L (<35); Albumin Globulin Ratio 0.8 (1.0-2.8); Alkaline Phosphatase 94 U/L (38-126); Aspartate Aminotransferase 19 IU/L (14-36); BUN Creatinine Ratio 10.6 (6-22); Bilirubin Total 0.4 mg/dL (0.2-1.3); Blood Urea Nitrogen 16 mg/dL (7-17); Calcium 9.5 mg/dL (8.4-10.2); Carbon Dioxide 27 mmol/L (22-32); Chloride 104 mmol/L (98-107); Estimated Glomerular Filt Rate 35 mL/min (>60); Glucose 98 mg/dL (80-110); HEMOLYSIS < 15 (0-50); Potassium 4.5 mmol/L (3.4-5.1); Sodium 134 mmol/L (137-145)
--- NOTE | 2023-04-05 14:14 | PT.IPTN ---
Current Diagnoses Infarction of spleen (03/31/23) Chronic kidney disease, stage 3 unspecified (03/31/23) Urinary tract infection, site not specified (03/31/23) Unspecified contusion of spleen, initial encounter (03/31/23) Physical Therapy Treatment Note M2 PT-IP Current Condition Start: 04/01/23 11:56 Freq: NEEDED Status: Active Protocol: Document 04/03/23 11:17 DCW (Rec: 04/03/23 11:59 DCW [id number]) Physical Therapy Current Condition Current Condition Evaluation Date 04/01/23 Treatment Diagnosis perisplenic hematoma; flank pain; difficulty in walking Onset Date 03/31/23 M3 PT-IP Subjective Start: 04/01/23 11:56 Freq: NEEDED Status: Active Protocol: Document 04/05/23 14:08 MB (Rec: 04/05/23 14:14 MB [id number]) Subjective Physical Therapy Visit Type Type Treatment Note Visit Start Time 13:45 Visit Stop Time 14:08 Total Visit Minutes 23 Number of STEM LEAD FORMER Visits 0 Physical Therapy Visit Comments Patient Comments Pt is agreeable to PT Therapy Pain Assessment Pain When Pain Assessed At Rest Pain Present Pain Present Pain Reported Location left flank Intensity 4 Scale Used Numeric (0 - 10) M4 PT-IP Mobility and Gait Start: 04/01/23 11:56 Freq: NEEDED Status: Active Protocol: Document 04/05/23 14:08 MB (Rec: 04/05/23 14:14 MB [id number]) PT-Bed Mobility Assessment Sit to Supine Sit to Supine Maximum Assistance,Bedrails PT-Transfer Assessment Sit to and From Stand Sit to and from Stand Standby Assistance,Total Assistance,Use of Upper Extremities Equipment Transfer Assistive Device Gait Belt,Front Wheeled Walker Orthotic/Prosthetic Devices or Brace: No Comments Mobility Comments Pt requires max A to life both legs in the bed for sit to supine. Pt requires SBA for sit to stand from recliner to RW and to sit from RW to bed. Pt stands at sink with RW and SBA to brush teeth and wash hands. Gait Assessment Gait Gait Assistance Required: Standby Assistance Distance (Feet) 40 Able to Maintain Weight Bearing Status Yes During Gait Assistive Devices Assistive Device Gait Belt,Front Wheeled Walker Orthotic/Prosthetic Devices or Brace: No Gait Deviations General Gait Pattern Decreased Stride Length, Decreased Feet Clearance,Wide Based Gait Factors Limiting Gait Function Factors Limiting Gait Function Decreased Activity Tolerance, Decreased Strength,Pain,Poor Balance Comments Gait Comments Pt's gait is slow and she has decreased step-length and foot clearance B. PT-Balance Assessment Sitting Balance and Reactions Static Sitting Balance Ability Good Dynamic Sitting Balance Ability Good Standing Balance and Reactions Static Standing Balance Ability Fair Dynamic Standing Balance Ability Fair Device Used FWW M5 PT-IP Objective Assessments Start: 04/01/23 11:56 Freq: NEEDED Status: Active Protocol: Document 04/01/23 10:25 AB (Rec: 04/01/23 12:13 AB [email or web address]) Orientation Orientation/Cognition Level of Alertness Alert Orientation Name,Place,Situation Language Function Ability No Deficits Noted Safety Awareness Decreased Safety Awareness Memory Description No Deficits Noted Gross Range of Motion Lower Extremity ROM Assessment Within Functional Limits Strength Lower Extremity Strength Assessment Left Impaired Hip 3+/5 Knee 3+/5 Coordination Assessment Gross Coordination Gross Coordination WNL Muscle Tone Muscle Tone WNL Yes M6 PT-IP Treatment Start: 04/01/23 11:56 Freq: NEEDED Status: Active Protocol: Document 04/05/23 14:08 MB (Rec: 04/05/23 14:14 MB [id number]) Physical Therapy Treatment Exercises Exercises Ankle Pumps Other Treatments Other Treatment Performed Sitting LE exercises: APs and alternating LAQs with demo and encouragement. M7 PT-IP Assessment and Plan Start: 04/01/23 11:56 Freq: NEEDED Status: Active Protocol: Document 04/05/23 14:08 MB (Rec: 04/05/23 14:14 MB [id number]) PT Summary Assessment and Plan Potential Rehabilitation Potential Fair Status of Condition at Evaluation Evolving Summary Impairments Pain,ROM,Strength,Balance,Bed Mobility,Transfers,Gait, Activity Tolerance Progress Towards Goals Slow Progress due to Pain,Slow Progress due to Activity Tolerance Assessment Summary Pt's mobility is about the same as last treatment date. She has many medical co- morbidities. She does well managing her urostomy tube. Goals Bed Mobility Goal Independent Transfer Goal Independent,Front Wheeled Walker Gait Goal Independent,Front Wheel Walker Gait Distance 75 Other Goals improve bed mobility, transfers, ambulation using fWW ~ 200 ft SBA up/down 5 + 4 steps B rails SBA Days to Meet Goals 10 Frequency of Treatment Frequency Of Treatment Once a Day Treatment Plan Physical Therapy Treatment Plan Bed Mobility Training,Transfer Training,Gait Training, Therapeutic Exercise,Balance Retraining Precautions Other Precautions Contact for MRSA at urostomy site Recommendations To Nursing Amount of Assist Needed 1 Person Assist Discharge Recommendations PT Discharge Recommendations Home with Assistance,Home Health Transportation Needs at Discharge Private Vehicle,Wheelchair/ Cabulance
[2023-04-05 16:00] VITALS: BP 142/60; PULSE 63; RESP 16; TEMP 37; O2SAT 93
[2023-04-05 20:00] VITALS: BP 144/51; PULSE 64; RESP 17; TEMP 36.7; O2SAT 98
[2023-04-05] MEDS: DOCUSATE 100 MG CAPSULE PO (20:58)
[2023-04-05] MEDS: LATANOPROST 0.005% OPHTH 2.5 ML 1 DROPS EYE-BOTH (20:58)
[2023-04-05] MEDS: SODIUM CHLORIDE 0.9% FLUSH 10 ML IV (20:58)
[2023-04-06 04:00] VITALS: BP 136/88; PULSE 74; RESP 16; TEMP 36.1; O2SAT 98
[2023-04-06 07:54] VITALS: BP 178/69; PULSE 66; RESP 18; TEMP 37.2; O2SAT 96
--- NOTE | 2023-04-06 08:32 | P.DS_ITS ---
History of Present Illness History of Present Illness Date Patient Seen: 04/06/23 Time Patient Seen: 08:32 Date of Onset of Symptoms: 03/29/23 Chief complaint: urostomy pain Narrative: Please see history dictated 03/31/[address] Ruiz Discharge Providers Provider Date of admission: 03/31/23 17:55 Discharge Date: 04/06/23 Primary care physician: Eric Grover MD Consults: 03/31/23 18:45 Consult to Discharge Planning Routine Comment: Consult to Physical Therapy Evaluate & Treat Comment: Physician Instructions: Evaluate and Treat 04/01/23 09:50 Consult to Physician Routine Comment: Consulting Provider: [facility] Reason for consultation: spleenic hematoma Has provider been notified: No 04/03/23 10:41 Consult to Home Health Routine Comment: [facility] Reason For Exam: Resume Home Health Services Discharge provider: Eric Grover MD Summary Hospital Course Discharge Diagnosis: Splenic hematoma UTI MRSA Nephrostomy tube with hydronephrosis History of DVT Insomnia Chronic kidney disease Anemia secondary to blood loss acute on chronic Hospital Course: Splenic hematoma. Patient was admitted to the hospital with severe pain. Left side flank. While she had hydronephrosis with Alejandre to not be a significant issue with the kidney secondary to the it process of her urinating okay. Through the tube. He was noted to have a hematoma on CT scan perisplenic. With lowering hematocrit. Surgery was consulted. And it was followed. Hematocrit stabilized. Pain mostly resolved over time. She was discontinued on her anticoagulation and will be for some time. How long is unclear. We will reassess that in the near future. Will follow-up in 1 week with CBC and follow pain. UTI. On Thursday patient grew MRSA out of her nephrostomy tube. She had no fevers no white count no other change. Discussion with pharmacy and elected for linezolid and we will continue that for 10 days. Reculture at that time. Patient had no fevers chills or other change. History of DVT. Patient was on longstanding anticoagulation because DVT. Patient had an ultrasound which showed no new clot. She had a discontinuation of her anticoagulation secondary to her hematoma. Will need to eventually go back on anticoagulation but the question will be how long. Probably somewhere around 3-6 weeks. Will see how things go. She does have a increased risk secondary to her decreased movement. Hypertension. Stable throughout most of the course. Nephrostomy tube with hydro nephrosis. Patient had active function throughout the course of her admission it was felt to be not an issue at this time. Will be followed. Urology consult and follow-up as outpatient. Anemia. [place] to be secondary to bleed although she was always chronically anemic. Stabilized on day 4. It has not dropped since. Will be followed as an outpatient. Insomnia stable. Chronic kidney disease was not an issue during admission. 45 minutes spent with patient social workers nursing orders and dictation Exam Vital Signs (past 8 hours): - 04/06/23 04:00 04/06/23 07:54 Temperature 97.0 F L 99.0 F Pulse Rate 74 66 Respiratory Rate 16 18 Blood Pressure 136/88 178/69 H Pulse Oximetry 98 96 Oxygen Flow Rate 0 0 Oxygen Delivery Method Room Air Oxygen Flow Rate 0 Narrative Exam Narrative: Alert female much less fatigued no acute distress Lungs are clear heart is regular rate and rhythm abdomen is soft positive bowel sounds nontender extremities with SCDs on Objective Labs 04/05/23 12:15 04/05/23 12:15 Labs: Laboratory Results - last 24 hr 04/05/23 12:15 WBC 5.5 RBC 3.52 L Hgb 8.6 L Hct 27.3 L MCV 77.5 L MCH 24.5 L MCHC 31.6 RDW 17.7 H Plt Count 320 Neut % (Auto) 61.8 Lymph % (Auto) 18.6 L [place] % (Auto) 9.1 Eos % (Auto) 9.2 H Baso % (Auto) 1.3 Neut # (Auto) 3400 Lymph # (Auto) 1000 L [place] # (Auto) 500 Eos # (Auto) 500 H Baso # (Auto) 100 Sodium 134 L Potassium 4.5 Chloride 104 Carbon Dioxide 27 BUN 16 Creatinine 1.51 H Estimated GFR 35 L BUN/Creatinine Ratio 10.6 Glucose 98 Calcium 9.5 Total Bilirubin 0.4 AST 19 ALT 10 Alkaline Phosphatase 94 Total Protein 7.0 Albumin 3.0 L Globulin 4.0 Albumin/Globulin Ratio 0.8 L FORMERLY [facility], 1928–1983 Medical History Gout Chronic UTI Arthritis Pulmonary embolism Unspecified essential hypertension Colitis with rectal bleeding Peristomal skin complication Lumbar hernia Retained urethral stent S/p nephrectomy Anticoagulated Chronic renal disease, stage 3, moderately decreased glomerular filtration rate (GFR) between 30-59 mL/min/1.[address] square [address]ostomy in place Leg swelling Easy bruisability Rectal carcinoma Port-A-Cath in place Neuropathy Incontinence Allergic reaction 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 Abnormal mammogram of right breast Parastomal hernia 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 Rectal cancer Surgical History History of ureter stent H/O nephrostomy H/O lithotripsy History of low anterior resection of rectum Family History Mother Hypertension Cancer Son Hypertension Grandfather Heart disease Social History marital status: number of children: 1 household members: none lives independently: Yes occupational status: previously employed and other Smoking Status: Current some day smoker Tobacco: How many years used: 60 alcohol intake: current substance use type: does not use caffeine: Yes Type(s) of exercise: none Discharge Assessment & Plan Assessment and Plan Assessment: Improved Plan of Treatment: Discharge home Discharge Plan Discharge Plan Patient Disposition: Home Discharge orders & Medications Prescriptions: New linezolid 600 mg tablet 600 mg PO BID Qty: 20 0RF Continued latanoprost 0.005 % drops 1 drp EYE-BOTH BEDTIME ipratropium-albuterol 0.5 mg-3 mg(2.5 mg base)/3 mL solution for nebulization 3 ml INHALATION 4XD Patient Comments: USE 1 VIAL VIA NEBULIZER FOUR TIMES DAILY oxycodone 10 mg Tablet 10 mg PO Q4H PRN (Reason: Pain, Moderate (4-6)) Qty: 30 0RF metoprolol tartrate 25 mg Tablet 12.5 mg PO BID amlodipine [Norvasc] 5 mg tablet 5 mg PO QPM Patient Comments: patient states takes at night Combivent Respimat 20-100 mcg/actuation mist 1 puff INHALATION 4XD Discontinued Eliquis 2.5 mg Tablet 2.5 mg PO BID Follow up/Referrals: Eric Grover MD [Primary Care Provider] - 04/13/23 (Please call for appointment) Discharge Health Status Multidrug resistant organism: MRSA Diet/Activity/Treatments Diet: Diet as Tolerated Activity: Has tolerated Catheter comment: Continue to flush nephrostomy tube Skin/Wound/Dressing Care Report to your healthcare provider any signs of infection, such as:: chills, fever, night sweats and increased pain Visit Report/Discharge Packet Instructions: Methicillin-Resistant Staph Infection Stand Alone Forms: Patient Portal/API, Stroke Signs & Symptoms Discharge Data Primary Care Provider: Eric Grover VTE Deep Vein Thrombosis/Pulmonary Embolism Present on Admission: No
[2023-04-06] MEDS: AMLODIPINE 5 MG TABLET PO (09:16)
[2023-04-06] MEDS: METOPROLOL IR 25 MG TABLET 12.5 MG PO (09:16)
[2023-04-06] MEDS: FAMOTIDINE 20 MG TABLET PO (09:16)
[2023-04-06] MEDS: LINEZOLID 600 MG/300 ML IV.SOLN IV (09:16)
[2023-04-06] MEDS: SODIUM CHLORIDE 0.9% FLUSH 10 ML IV (09:16)
[2023-04-06] MEDS: HYDROCODONE/ACET 5/325 TABLET 1 TAB PO (09:34)
--- NOTE | 2023-04-06 10:16 | CM.DPC ---
DCP Discharge Home with Per MD, pt is medically stable to d/c home today with and no identified barriers to discharge as pt no longer on IV pain meds and tolerating PO. SW spoke to Aundrea at [facility] and confirmed that she has received the new F2F and orders and d/c summary and will keep pt on their schedule for this week and aware she is discharging today. SW met bedside with pt and she confirms she is agreeable to d/c home today after her IV meds and RN will complete final dressing change for her and pt confirms she has a friend providing transport today but driving from [place] and will arrive about 1330 and RN will have pt dressed and ready for d/c by the time transport arrives. Plan: Patient to d/c home today via friend POV and [facility] to continue working with pt after discharge. THERESE Chung
--- NOTE | 2023-04-06 11:55 | PT.IPTN ---
Current Diagnoses Infarction of spleen (03/31/23) Chronic kidney disease, stage 3 unspecified (03/31/23) Urinary tract infection, site not specified (03/31/23) Unspecified contusion of spleen, initial encounter (03/31/23) Physical Therapy Treatment Note M2 PT-IP Current Condition Start: 04/01/23 11:56 Freq: NEEDED Status: Discharge Protocol: Document 04/03/23 11:17 DCW (Rec: 04/03/23 11:59 DCW [id number]) Physical Therapy Current Condition Current Condition Evaluation Date 04/01/23 Treatment Diagnosis perisplenic hematoma; flank pain; difficulty in walking Onset Date 03/31/23 M3 PT-IP Subjective Start: 04/01/23 11:56 Freq: NEEDED Status: Discharge Protocol: Document 04/06/23 11:55 [facility] (Rec: 04/06/23 18:04 [facility] [id number]) Subjective Physical Therapy Visit Type Type Treatment Note Visit Start Time 11:27 Visit Stop Time 11:55 Total Visit Minutes 28 Number of GROCERY CARRIER Visits 0 Physical Therapy Visit Comments Patient Comments pt looks fwd to going home. Plans to have HH and granddgt gets in tomorrow and dgt later this week. Son will help until then and staying with [facility] Therapy Pain Assessment Pain Present Pain Present Pain Reported Location left flank Pain Behaviors Facial Grimacing Pain Management Techniques Re-positioning,Timing of Activity with Medications M4 PT-IP Mobility and Gait Start: 04/01/23 11:56 Freq: NEEDED Status: Discharge Protocol: Document 04/06/23 11:55 [facility] (Rec: 04/06/23 18:04 [facility] [id number]) PT-Bed Mobility Assessment Supine to Sit Supine to Sit Independent Scooting Scooting to Edge of Bed Independent PT-Transfer Assessment Sit to and From Stand Sit to and from Stand Standby Assistance,Use of Upper Extremities Equipment Transfer Assistive Device Gait Belt Orthotic/Prosthetic Devices or Brace: No Gait Assessment Gait Gait Assistance Required: Standby Assistance Distance (Feet) 100 Assistive Devices Assistive Device Gait Belt Gait Deviations General Gait Pattern Decreased Stride Length,Flexed Trunk Factors Limiting Gait Function Factors Limiting Gait Function Decreased Strength Stair Climbing Assessment Evaluation Level of Assist On Stairs Contact Guard Assistance Devices Stair Climbing Assistive Devices Left Railing,Right Railing Technique/Endurance Stair Climbing Direction Ascend and Descend Stair Climbing Technique Step to Step Stair Climbing Set # Repetitions (reps) 1 M5 PT-IP Objective Assessments Start: 04/01/23 11:56 Freq: NEEDED Status: Discharge Protocol: Document 04/01/23 10:25 AB (Rec: 04/01/23 12:13 AB [id number]) Orientation Orientation/Cognition Level of Alertness Alert Orientation Name,Place,Situation Language Function Ability No Deficits Noted Safety Awareness Decreased Safety Awareness Memory Description No Deficits Noted Gross Range of Motion Lower Extremity ROM Assessment Within Functional Limits Strength Lower Extremity Strength Assessment Left Impaired Hip 3+/5 Knee 3+/5 Coordination Assessment Gross Coordination Gross Coordination WNL Muscle Tone Muscle Tone WNL Yes M6 PT-IP Treatment Start: 04/01/23 11:56 Freq: NEEDED Status: Discharge Protocol: Document 04/05/23 14:08 MB (Rec: 04/05/23 14:14 MB [id number]) Physical Therapy Treatment Exercises Exercises Ankle Pumps Other Treatments Other Treatment Performed Sitting LE exercises: APs and alternating LAQs with demo and encouragement. M7 PT-IP Assessment and Plan Start: 04/01/23 11:56 Freq: NEEDED Status: Discharge Protocol: Document 04/06/23 11:55 [facility] (Rec: 04/06/23 18:04 [facility] [id number]) PT Summary Assessment and Plan Summary Assessment Summary pt did well with all mobility and ended in chair w/call light in reach. She required only SBA to CGA for activities and feels comfrotable w/ return home w/family help and provider has put in DC orders. Pt would benefit from to help with improving mobility and safety. Goals Bed Mobility Goal Independent Transfer Goal Independent,Front Wheeled Walker Gait Goal Independent,Front Wheel Walker Gait Distance 75 Other Goals improve bed mobility, transfers, ambulation using fWW ~ 200 ft SBA up/down 5 + 4 steps B rails SBA Days to Meet Goals 10 Frequency of Treatment Frequency Of Treatment Once a Day Treatment Plan Physical Therapy Treatment Plan Bed Mobility Training,Transfer Training,Gait Training, Therapeutic Exercise,Balance Retraining Other Recommendations and Next Treatment Progress gait and stairs Focus Recommendations To Nursing Amount of Assist Needed Standby Assistance Discharge Recommendations PT Discharge Recommendations Home with Assistance,Home Health Transportation Needs at Discharge Private Vehicle
--- NOTE | 2023-04-06 14:34 | PC.NURSE ---
Pt discharged at 1425, escorted off floor in wheelchair accompanied by hospital staff. IV removed, discharge teaching completed including new medications, wound care and follow up appointments. Patient left floor with all belongings.
== END 2023-04-06 14:36 | disposition home health service (06) | DRG 815 ==
LOC: ED 17:24 → AC 18:35
PROVIDERS: Student in an Organized Health Care Education/Training Program; Admitting Provider Family Medicine; Emergency Provider Emergency Medicine; PCP Family Medicine; Referring Provider Emergency Medicine; Visit Provider Family Medicine
DX: D73.5 Infarction of spleen (principal); D62 Acute posthemorrhagic anemia; N39.0 Urinary tract infection, site not specified; N13.30 Unspecified hydronephrosis; H40.9 Unspecified glaucoma; G47.00 Insomnia, unspecified; I12.9 Hypertensive chronic kidney disease with stage 1 through stage 4 chronic kidney disease, or unspecified chronic kidney disease; D63.1 Anemia in chronic kidney disease; B95.62 Methicillin resistant Staphylococcus aureus infection as the cause of diseases classified elsewhere; B95.2 Enterococcus as the cause of diseases classified elsewhere; N18.30 Chronic kidney disease, stage 3 unspecified; F17.200 Nicotine dependence, unspecified, uncomplicated; Z86.711 Personal history of pulmonary embolism; Z86.718 Personal history of other venous thrombosis and embolism; Z90.5 Acquired absence of kidney; Z66 Do not resuscitate; Z93.6 Other artificial openings of urinary tract status; Z79.01 Long term (current) use of anticoagulants
CPT/HCPCS: 36415; 74176; 74183; 80048; 80053; 81003; 81015; 82728; 83540; 83550; 83605; 83690; 84145; 85014; 85018; 85025; 87040; 87070; 87077; 87086; 87147; 87186; 87205; 93005; 93971; 96374; 96375; 96376; 97116; 97162; 97530; 99232; 99284; 99285; A9270; J0696; J1170; J2020; J2270; J2405

== ENCOUNTER → 2023-06-08 14:04 | Outpatient (CLI) | payer MEDICARE, SELFPAY ==
[2023-03-31 18:06] VITALS: BMI 31.3
--- NOTE | 2023-06-08 14:07 | DI.RAD.S_ITS ---
PROCEDURE: XR SHOULDER RT MIN 2V INDICATIONS: SHOULDER PAIN TECHNIQUE: 3 views of the shoulder were acquired. COMPARISON: [facility], CR, XR SHOULDER LT MIN 2V, 01/13/2018, 14:54. FINDINGS: Bones: No fractures or dislocations. Mild degenerative changes of the glenohumeral acromioclavicular joints. No suspicious bony lesions. Visualized ribs appear intact. Soft tissues: No suspicious soft tissue calcifications. IMPRESSION: No acute bony abnormality. Mild degenerative changes of the glenohumeral and acromioclavicular joints. Dictated by: Jovan Rowe M.D. on 06/08/2023 at 16:01 Approved by: Jovan Rowe M.D. on 06/08/2023 at 16:02
== END ==
LOC: RAD 14:06
PROVIDERS: PCP Family Medicine; Referring Provider Family Medicine; Visit Provider Family Medicine
DX: M89.8X1 Other specified disorders of bone, shoulder (principal)
CPT/HCPCS: 73030

== ENCOUNTER → 2023-07-01 11:34 | Outpatient (ROUT) | payer MEDICARE, SELFPAY ==
[2023-03-31 18:06] VITALS: BMI 31.3
[2023-07-01 12:03] LABS: BUN Creatinine Ratio 16.9 (6-22); Blood Urea Nitrogen 26 mg/dL (7-17); Calcium 9.6 mg/dL (8.4-10.2); Carbon Dioxide 23 mmol/L (22-32); Chloride 114 mmol/L (98-107); Estimated Glomerular Filt Rate 34 mL/min (>60); Glucose 97 mg/dL (80-110); HEMOLYSIS < 15 (0-50); Potassium 4.4 mmol/L (3.4-5.1); Sodium 142 mmol/L (137-145)
== END ==
PROVIDERS: PCP Family Medicine; Visit Provider Family Medicine
DX: D73.5 Infarction of spleen (principal)
CPT/HCPCS: 80048

== ENCOUNTER → 2023-07-02 10:16 | Outpatient (CLI) | payer MEDICARE, SELFPAY ==
[2023-03-31 18:06] VITALS: BMI 31.3
--- NOTE | 2023-07-02 10:17 | DI.CT.S_ITS ---
PROCEDURE: CT ABDOMEN PELVIS W CON INDICATIONS: SPLENIC HEMATOMA TECHNIQUE: After the administration of intravenous contrast, axial sections acquired from the lung bases to the pubic symphysis. Coronal and sagittal reformats were performed. For radiation dose reduction, the following was used: automated exposure control, adjustment of mA and/or kV according to patient size. COMPARISON: [facility], MR, MR ABDOMEN WO/W CON, 03/31/2023, 14:47. [facility], CT, CT KIDNEY URETER BLADDER (KUB), 03/31/2023, 11:47. [facility], US, US RENAL COMPLETE, 05/18/2023, 11:56. [facility], CT, ABDOMEN/PELVIS WITH CONTRAST, 07/14/2014, 18:41. FINDINGS: Image quality: Diagnostic. Lower Chest: No significant findings. ABDOMEN: Liver: No solid mass. Multiple hepatic cysts. Gallbladder: No radiopaque gallstones or wall thickening. Biliary ducts: No biliary dilation. Pancreas: No ductal dilation. Spleen: Decreased size of the perisplenic hematoma measuring 2 x 3.1 cm, previously 6.2 x 5.7 cm. Adrenal Glands: No adrenal nodules. Kidneys and Ureters: Stable hemorrhagic cyst on the posterior margin of the left kidney measuring 1.3 cm. Left-sided percutaneous nephrostomy tube is present, terminating within the renal collecting system. There is persistent fat stranding about the renal pelvis. Without hydronephrosis. There is a stone within the left mid ureter measuring 8 mm (395 Hounsfield unit), previously seen on prior. Right nephrectomy. Stomach and Bowel: Prior partial colectomy, with left lower quadrant colostomy. Rectal wall thickening. Peritoneum: No abnormal intraperitoneal fluid. No free air. Ventral Wall: Right lumbar hernia containing nonobstructed large bowel. Multiple anterior ventral hernias which are wide-mouth, and contain long segments of small bowel. Left peristomal hernia containing nonobstructed small bowel. Abdominal Nodes: No retroperitoneal or mesenteric adenopathy by size criteria. Vessels: Aorta and inferior vena cava are normal in size. PELVIS: Pelvic Organs: Unremarkable. Bladder: No bladder wall thickening, accounting for underdistention. Pelvic Nodes: No enlarged lymph nodes. Miscellaneous: No inguinal hernias are seen. Presacral soft tissue edema, similar to prior. Bones: No aggressive osseous abnormality. Stable compression deformity of the L5 vertebral body, with kyphoplasty. Degenerative disc disease of the lumbar spine. Prior left hip ORIF. IMPRESSION: Decreased size of the perisplenic hematoma measuring 2 x 3.1 cm, previously 6.2 x 5.7 cm. Similar obstructing stone in the proximal left ureter measuring 8 mm. Left-sided percutaneous nephrostomy tube is present, with persistent fat stranding about the renal pelvis. Findings may indicate infection. Peristomal, lumbar and ventral hernias containing nonobstructed bowel. Persistent wall thickening of the rectum, which could be post radiation change given presacral soft tissue attenuation. Dictated by: Javan Tang M.D. on 07/02/2023 at 12:43 Approved by: Javan Tang M.D. on 07/02/2023 at 12:58
== END ==
PROVIDERS: PCP Family Medicine; Referring Provider Family Medicine; Visit Provider Family Medicine
DX: D73.5 Infarction of spleen (principal); K94.09 Other complications of colostomy; K76.89 Other specified diseases of liver; N28.1 Cyst of kidney, acquired; N20.1 Calculus of ureter; K43.9 Ventral hernia without obstruction or gangrene; M51.36 Other intervertebral disc degeneration, lumbar region; K45.8 Other specified abdominal hernia 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; Z93.6 Other artificial openings of urinary tract status; Z90.5 Acquired absence of kidney
CPT/HCPCS: 74177; Q9967

== ENCOUNTER → 2024-01-19 14:44 | Outpatient (CLI) | payer MEDICARE, SELFPAY ==
[2023-03-31 18:06] VITALS: BMI 31.3
--- NOTE | 2024-01-19 14:46 | DI.US.S_ITS ---
PROCEDURE: US RENAL COMPLETE INDICATIONS: HYDRONEPHROSIS,LEFT TECHNIQUE: Real-time scanning was performed of the kidneys and bladder, with image documentation. COMPARISON: [facility], CT, CT ABDOMEN PELVIS WITHOUT CONTRAST, 04/01/2022, 9:08. [facility], , US RENAL COMPLETE, 03/31/2018, 2:55. [facility], , US RENAL COMPLETE, 03/12/2018, 12:31. [facility], US RENAL COMPLETE, 09/17/2017, 11:13. FINDINGS: Kidneys: The left kidney measures 15.5 centimeters in length with a cortical thickness of 1.7 centimeter. Three simple cysts are present, the largest of which measures 3.9 x 4.1 x 3.7 centimeters at the inferior pole. There is no hydronephrosis. There is no obstructive urolithiasis. The right kidney is absent. Bladder: Suboptimally evaluated due to decompressed state. Miscellaneous: No free pelvic fluid. Incidentally noted 1.4 cm cholelithiasis. IMPRESSION: 1. No left hydronephrosis. 2. Cholelithiasis. Dictated by: Atul Rosenthal M.D. on 01/20/2024 at 12:18 Approved by: Atul Rosenthal M.D. on 01/20/2024 at 12:23
== END ==
LOC: US 14:45
PROVIDERS: PCP Family Medicine; Referring Provider Family Medicine; Visit Provider Family Medicine
DX: N13.30 Unspecified hydronephrosis (principal); N17.9 Acute kidney failure, unspecified; N28.1 Cyst of kidney, acquired; K80.20 Calculus of gallbladder without cholecystitis without obstruction; Z90.5 Acquired absence of kidney
CPT/HCPCS: 76770

== ENCOUNTER 2024-01-31 14:44 | Emergency (ER) | payer MEDICARE, SELFPAY ==
[2023-03-31 18:06] VITALS: BMI 31.3
[2024-01-31] VITALS (8 sets, daily range): BP systolic 131–154; BP diastolic 60–74; PULSE 62–82; RESP 15–23; TEMP 36.9; O2SAT 95–100; BMI 25.8
--- NOTE | 2024-01-31 14:52 | DI.CT.S_ITS ---
PROCEDURE: CT HEAD/BRAIN WO CON INDICATIONS: fall on thinner TECHNIQUE: Noncontrast 4.5 mm thick angled axial sections acquired from the foramen magnum to the vertex, with coronal and sagittal reformats. For radiation dose reduction, the following was used: automated exposure control, adjustment of mA and/or kV according to patient size. COMPARISON: [facility], CT, CT HEAD/BRAIN WO CON, 10/02/2019, 9:02. FINDINGS: Image quality: Diagnostic. CSF spaces: Basal cisterns are patent. No extra-axial fluid collections. The ventricles are symmetric in size and shape. Brain: No intracranial bleeds or masses. There is cerebral volume loss for age, with resultant ventricular and sulcal prominence. There are periventricular and deep white matter chronic small vessel ischemic changes. There is intracranial internal carotid artery atherosclerosis. Skull and face: Calvarium and visualized facial bones appear intact, without suspicious lesions. Sinuses: Visualized sinuses and mastoids are clear. IMPRESSION: No acute intracranial pathology. No acute displaced skull fracture. Dictated by: Landen Peng M.D. on 01/31/2024 at 15:19 Approved by: Landen Peng M.D. on 01/31/2024 at 15:20
--- NOTE | 2024-01-31 14:52 | DI.CT.S_ITS ---
PROCEDURE: CT CERVICAL SPINE WO CON INDICATIONS: fall on thinner TECHNIQUE: Noncontrast 3 mm thick sections acquired from the skull base to the T4 level. Sagittal and coronal reformats were then constructed. For radiation dose reduction, the following was used: automated exposure control, adjustment of mA and/or kV according to patient size. COMPARISON: None. FINDINGS: Image quality: Excellent. Bones: No fractures or dislocations. Degenerative endplate changes, loss of disc height and bilateral uncovertebral hypertrophic changes are noted throughout cervical spine causing [id number] central canal stenosis and bilateral neural foraminal narrowing more notably at C4-5 and C5-6 levels. Visualized superior ribs are intact. Soft tissues: Prevertebral soft tissues are normal in thickness. No paravertebral hematomas. No apical pneumothoraces. There is enlarged thyroid gland with heterogeneous density particularly involving left thyroid lobe extending to superior mediastinum. IMPRESSION: 1. No acute cervical spine fracture or dislocation. 2. Degenerative disc disease throughout cervical spine as above. 3. Enlarged thyroid gland as above which may represent nodular goiter. Outpatient ultrasound of thyroid gland follow-up is recommended. Dictated by: Landen Peng M.D. on 01/31/2024 at 15:20 Approved by: Landen Peng M.D. on 01/31/2024 at 15:21
--- NOTE | 2024-01-31 15:08 | DI.RAD.S_ITS ---
PROCEDURE: XR CHEST 1V INDICATIONS: fall TECHNIQUE: One view of the chest was acquired. COMPARISON: [facility], CR, XR CHEST 2V, 04/02/2021, 12:05. FINDINGS: Surgical changes and devices: None. Lungs and pleura: Lungs are clear. No pleural effusions or pneumothorax. Mediastinum: Mediastinal contours appear normal. Heart size is enlarged. Bones and chest wall: No suspicious bony lesions. Overlying soft tissues appear unremarkable. IMPRESSION: No acute cardiopulmonary pathology. Dictated by: Landen Peng M.D. on 01/31/2024 at 15:18 Approved by: Landen Peng M.D. on 01/31/2024 at 15:19
--- NOTE | 2024-01-31 15:52 | PC.NURSE ---
declines blood work at this time
--- NOTE | 2024-01-31 18:09 | ED.FALL ---
HPI - Fall General Chief Complaint: Fall Stated Complaint: Fall hit head on Blood thinner Time Seen by Provider: 01/31/24 14:54 Source: EMS Mode of arrival: EMS History of Present Illness HPI Narrative: 83-year-old female with history of chronic anticoagulation with Eliquis for history of recurrent blood clots, history of colon cancer has left abdominal colostomy, also has left nephrostomy tube in place, had ground level fall at home, was taking her shirt off, and when she had the shirt over her head she lost vision and sense of balance, and fell. She uses walker as a baseline. She had bumped the left side of her head, no loss of consciousness, no nausea or vomiting, no focal weakness to face arm or leg. She denies neck pain. She has also left anterior chest pain, believes she hit her chest on her walker at her fall. No chest pain before fall. Pain in chest is worse with deep inspiration. Also some contusion bruising to left proximal forearm, left knee. Swelling to the left knee. She believes that her nephrostomy tube was not pulled or damaged in the fall, nor her colostomy site. Related Data Home Medications Medication Instructions Recorded Confirmed latanoprost 0.005 % eye drops 1 drp EYE-BOTH BEDTIME 02/09/18 03/31/23 amlodipine 5 mg tablet (Norvasc) 5 mg PO QPM 03/29/18 03/31/23 metoprolol tartrate 25 mg tablet 12.5 mg PO BID 05/06/22 03/31/23 ipratropium 0.5 mg-albuterol 3 mg 3 ml inhalation 4XD 07/16/22 03/31/23 (2.5 mg base)/3 mL nebulization soln ipratropium 20 mcg-albuterol 100 1 puff inhalation 4XD 03/31/23 03/31/23 mcg/actuation mist for inhalation (Combivent Respimat) Previous Rx's Medication Instructions Recorded oxycodone 10 mg tablet 10 mg PO Q4H PRN Pain, Moderate 07/20/22 (4-6) #30 tabs linezolid 600 mg tablet 600 mg PO BID #20 tabs 04/06/23 Allergies Allergy/AdvReac Type Severity Reaction Status Date / Time cashew nut Allergy Severe Anaphylaxis Verified 02/27/21 16:45 ciprofloxacin [CIPROFLOXACIN] Allergy Intermediate HIVES UP Verified 12/18/22 11:23 ARM RIGHT AFTER IV DOSE STARTED nitrofurantoin Allergy Intermediate rash, Verified 12/18/22 11:23 [From MACRODANTIN] itching Review of Systems Review of Systems Narrative: see HPI Patient History Medical History Gout Chronic UTI Arthritis Pulmonary embolism Unspecified essential hypertension Colitis with rectal bleeding Peristomal skin complication Lumbar hernia Retained urethral stent S/p nephrectomy Anticoagulated Chronic renal disease, stage 3, moderately decreased glomerular filtration rate (GFR) between 30-59 mL/min/1.[address] in place Leg swelling Easy bruisability Rectal carcinoma Port-A-Cath in place Neuropathy Incontinence Allergic reaction 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 Abnormal mammogram of right breast Parastomal hernia 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 Rectal cancer Surgical History History of ureter stent H/O nephrostomy H/O lithotripsy History of low anterior resection of rectum Family History Mother Hypertension Cancer Son Hypertension Grandfather Heart disease Social History marital status: number of children: 1 household members: none lives independently: Yes occupational status: previously employed and other Smoking Status: Current some day smoker Tobacco: How many years used: 60 alcohol intake: current substance use type: does not use caffeine: Yes Type(s) of exercise: none Smoking Status: Current some day smoker alcohol intake frequency: holidays/special occasions only Substance Use Type: marijuana Exam Narrative Exam Narrative: GENERAL: Well-developed patient, in mild distress. HEAD: Left parietal area mild tenderness without significant swelling, no abrasion or laceration, no crepitance. No other craniofacial scalp injuries obvious. EYES: Pupils equal round and reactive. Extraocular motions intact. No scleral icterus. No injection or drainage. ENT: Nose without bleeding, purulent drainage. Throat without erythema, tonsillar hypertrophy or exudate. Airway patent. NECK: Trachea midline. Non tender CARDIOVASCULAR: Regular rate and rhythm without murmurs, gallops, or rubs. RESPIRATORY: Clear to auscultation. Breath sounds equal bilaterally. No wheezes, rales, or rhonchi. Left lateral chest wall tenderness, no bruising, no crepitance, no subcutaneous emphysema, moves air well, lungs clear, speaks in full sentences, no respiratory distress. GASTROINTESTINAL: Abdomen soft, non-tender, nondistended. Left lower quadrant colostomy site, appears intact. Left nephrostomy tube in place, no blood in tubing or collection bag, appears intact. EXTREMITIES: No edema or joint tenderness. Some swelling to the left proximal forearm musculature, no tenderness at her elbow olecranon area, full extension and flexion of her elbow and wrist. No other left upper extremity injuries obvious. Has small bruise to the left inferior patellar region, no gross knee effusion, can flex and extend at her knee, has been able to bear weight since her fall on the knee. BACK: Nontender without deformity or crepitance. No flank tenderness. NEURO: AOx3. Motor functions grossly nonfocal SKIN: No rash or erythema of visible areas Initial Vital Signs Initial Vital Signs: Vital Signs Pulse Rate 72 01/31/24 14:49 Respiratory Rate 20 01/31/24 14:49 Blood Pressure 142/63 H 01/31/24 14:49 Pulse Oximetry 100 01/31/24 14:49 Oxygen Delivery Method Room Air 01/31/24 14:49 Course Orders Ordered: Discontinued Medications Hydrocodone Bitart/Acetaminophen (Hydrocodone/Acet 5/325 Tablet) 1 tab PO NOW ONE Stop: 01/31/24 18:29 Last Admin: 01/31/24 18:37 Dose: 1 tab Documented By: RASHEL Hydrocodone Bitart/Acetaminophen (Hydrocodone/Acet 5/325 Prepack) 1 bottle MISC DIRECTED ONE Stop: 01/31/24 18:29 Last Admin: 01/31/24 18:38 Dose: 1 bottle Documented By: RASHEL Vital Signs Vital signs: Vital Signs - 8 hr 01/31/24 18:00 01/31/24 18:00 01/31/24 18:30 Temperature Pulse Rate 65 66 Respiratory Rate 22 Blood Pressure 154/65 H Pulse Oximetry 99 99 01/31/24 18:31 01/31/24 18:31 Temperature 98.4 F Pulse Rate 66 67 Respiratory Rate 22 Blood Pressure 137/60 Pulse Oximetry 100 96 MDM - Fall Imaging Data Chest x-ray: Radiologist's Impression: [address] [address] XRay Report Signed Patient: Sherlyn Ward MR#: [id number] : 1940 Acct:[id number] Age/Sex: 83 / F Date of Service: 01/31/24 Loc: ED Accession Number: [id number] Procedure: XR chest 1V Ordering Provider: Mattie Tai D.O. PROCEDURE: XR CHEST 1V INDICATIONS: fall TECHNIQUE: One view of the chest was acquired. COMPARISON: [facility], CR, XR CHEST 2V, 04/02/2021, 12:05. FINDINGS: Surgical changes and devices: None. Lungs and pleura: Lungs are clear. No pleural effusions or pneumothorax. Mediastinum: Mediastinal contours appear normal. Heart size is enlarged. Bones and chest wall: No suspicious bony lesions. Overlying soft tissues appear unremarkable. IMPRESSION: No acute cardiopulmonary pathology. Dictated by: Landen Peng M.D. on 01/31/2024 at 15:18 Approved by: Landen Peng M.D. on 01/31/2024 at 15:19 CT scan - head: Radiologist's Impression: [address] [address] [address] Scan Report Signed Patient: Sherlyn Ward MR#: [id number] : 1940 Acct:[id number] Age/Sex: 83 / F Date of Service: 01/31/24 Loc: ED Accession Number: [id number] Procedure: CT head/brain wo con Ordering Provider: Mattie Tai D.O. PROCEDURE: CT HEAD/BRAIN WO CON INDICATIONS: fall on thinner TECHNIQUE: Noncontrast 4.5 mm thick angled axial sections acquired from the foramen magnum to the vertex, with coronal and sagittal reformats. For radiation dose reduction, the following was used: automated exposure control, adjustment of mA and/or kV according to patient size. COMPARISON: [facility], CT, CT HEAD/BRAIN WO CON, 10/02/2019, 9:02. FINDINGS: Image quality: Diagnostic. CSF spaces: Basal cisterns are patent. No extra-axial fluid collections. The ventricles are symmetric in size and shape. Brain: No intracranial bleeds or masses. There is cerebral volume loss for age, with resultant ventricular and sulcal prominence. There are periventricular and deep white matter chronic small vessel ischemic changes. There is intracranial internal carotid artery atherosclerosis. Skull and face: Calvarium and visualized facial bones appear intact, without suspicious lesions. Sinuses: Visualized sinuses and mastoids are clear. IMPRESSION: No acute intracranial pathology. No acute displaced skull fracture. Dictated by: Landen Peng M.D. on 01/31/2024 at 15:19 Approved by: Landen Peng M.D. on 01/31/2024 at 15:20 CT - cervical spine: Radiologist's Impression: [address] [address] [address] Scan Report Signed Patient: Sherlyn Ward MR#: [id number] : 1940 Acct:[id number] Age/Sex: 83 / F Date of Service: 01/31/24 Loc: ED Accession Number: [id number] Procedure: CT cervical spine wo con Ordering Provider: Mattie Tai D.O. PROCEDURE: CT CERVICAL SPINE WO CON INDICATIONS: fall on thinner TECHNIQUE: Noncontrast 3 mm thick sections acquired from the skull base to the T4 level. Sagittal and coronal reformats were then constructed. For radiation dose reduction, the following was used: automated exposure control, adjustment of mA and/or kV according to patient size. COMPARISON: None. FINDINGS: Image quality: Excellent. Bones: No fractures or dislocations. Degenerative endplate changes, loss of disc height and bilateral uncovertebral hypertrophic changes are noted throughout cervical spine causing [id number] central canal stenosis and bilateral neural foraminal narrowing more notably at C4-5 and C5-6 levels. Visualized superior ribs are intact. Soft tissues: Prevertebral soft tissues are normal in thickness. No paravertebral hematomas. No apical pneumothoraces. There is enlarged thyroid gland with heterogeneous density particularly involving left thyroid lobe extending to superior mediastinum. IMPRESSION: 1. No acute cervical spine fracture or dislocation. 2. Degenerative disc disease throughout cervical spine as above. 3. Enlarged thyroid gland as above which may represent nodular goiter. Outpatient ultrasound of thyroid gland follow-up is recommended. Dictated by: Landen Peng M.D. on 01/31/2024 at 15:20 Approved by: Landen Peng M.D. on 01/31/2024 at 15:21 [facility] Narrative Medical decision making narrative: 83-year-old female with chronic anticoagulation Eliquis for recurrent blood clots, had ground level fall and struck left side of her head, no LOC. neuro intact. CT head and cervical spine imaging ordered from triage. Also left anterior chest discomfort, no crepitance, equal breath sounds, normal sats, no respiratory distress. Chest x-ray also ordered. CT head no acute changes, see radiology report. CT cervical spine noncontrast, no bony injuries no soft tissue injuries, normal alignment, incidental thyroid enlargement noted. See radiology report Chest x-ray, no acute changes, see radiology report. Colostomy site and left nephrostomy tube site seem intact. No anterior abdominal discomfort. No advanced imaging CT abdomen and pelvis at this time. She has home albuterol use and a previous incentive spirometer to use. We will spacer to use with her inhaler. Patient able to stand at bedside using her walker, with baseline walker ambulation. She would like pain medications, has taken hydrocodone in the past. We will avoid NSAIDs for now given history of chronic anticoagulation. Hydrocodone/APAP 5 mg dose oral now. Home pack hydrocodone. Recheck in follow up in 2 days Thursday clinic appointment with her regular doctor advised. Return precautions discussed. Home with Discharge Plan Departure Patient Disposition: Home Clinical Impression: Fall from ground level, Contusion of scalp, Contusion of arm, left, Contusion of knee, left, Chest wall contusion, Enlarged thyroid Activity Restrictions/Additional Instructions: Fall in bathroom setting, striking left side of the head, no loss of consciousness, but taking chronic Eliquis anticoagulation. CT head study showed no acute injuries. CT cervical spine showed no neck injuries but incidentally noted enlarged thyroid. Thyroid can be further followed up as an outpatient, not associated with acute trauma. Left sided chest discomfort, chest x-ray unremarkable. You have incentive spirometer to use to keep your lungs well inflated, use your albuterol inhaler, we added spacer to use with your inhaler, 2 puffs 4 times daily for the next few days. You had bruising to your left proximal forearm, but good range of motion, no x-rays indicated. Small contusion left knee, without swelling, able to bear weight, no x-rays indicated at this time. Take pain medications as needed for pain control, encouraged to deep breathe to prevent collapse of lung and development of pneumonia. Recheck in 2 days with your regular doctor in clinic as planned. Return earlier to this/nearest emergency department for any change worsening symptoms or any concerns prior Prescriptions: No Action latanoprost 0.005 % drops 1 drp EYE-BOTH BEDTIME ipratropium-albuterol 0.5 mg-3 mg(2.5 mg base)/3 mL solution for nebulization 3 ml INHALATION 4XD Patient Comments: USE 1 VIAL VIA NEBULIZER FOUR TIMES DAILY oxycodone 10 mg Tablet 10 mg PO Q4H PRN (Reason: Pain, Moderate (4-6)) Qty: 30 0RF metoprolol tartrate 25 mg Tablet 12.5 mg PO BID amlodipine [Norvasc] 5 mg tablet 5 mg PO QPM Patient Comments: patient states takes at night Combivent Respimat 20-100 mcg/actuation mist 1 puff INHALATION 4XD linezolid 600 mg tablet 600 mg PO BID Qty: 20 0RF Referrals: Eric Grover MD [Primary Care Provider] - Stand Alone Forms: Patient Portal/API/Survey
[2024-01-31] MEDS: HYDROCODONE/ACET 5/325 TABLET 1 TAB PO (18:37)
[2024-01-31] MEDS: HYDROCODONE/ACET 5/325 PREPACK 1 BOTTLE MISC (18:38)
--- NOTE | 2024-01-31 19:14 | PC.NURSE ---
Spacer education given to pt. Pt nephrostomy bag emptied twice. Pt able to ambulate at bedside some. Pt drank ensure w/o issue. Pt assisted to car via wheelchair by nurse.
== END 2024-01-31 19:16 | disposition home or self-care (01) ==
PROVIDERS: Emergency Provider Emergency Medicine; PCP Family Medicine
DX: S00.03XA Contusion of scalp, initial encounter (principal); S40.022A Contusion of left upper arm, initial encounter; S20.212A Contusion of left front wall of thorax, initial encounter; S80.02XA Contusion of left knee, initial encounter; W18.30XA Fall on same level, unspecified, initial encounter; Z79.01 Long term (current) use of anticoagulants; E04.1 Nontoxic single thyroid nodule
CPT/HCPCS: 70450; 71045; 72125; 99284

== ENCOUNTER 2024-03-05 12:01 | Emergency (ER) | payer MEDICARE, SELFPAY ==
[2023-03-31 18:06] VITALS: BMI 31.3
[2024-03-05 12:17] VITALS: BP 145/66; PULSE 60; RESP 16; TEMP 36.9; O2SAT 97; BMI 26.6
--- NOTE | 2024-03-05 12:41 | ED.RECABL ---
HPI - Recheck/Abnormal Lab/Rx <Kyara Marie PA-C - Last Filed: 03/05/24 13:26> General Chief Complaint: Recheck/Abnormal Lab/Rx Stated Complaint: needs pic line put in Time Seen by Provider: 03/05/24 12:23 History of Present Illness HPI narrative: Ms. Ward is a pleasant 83-year-old female with a past medical history of daily IV antibiotics for for bacteremia secondary to UTI with a chronic left nephrostomy tube who presents to the emergency department for PICC line placement. Patient's last hospitalization for this bacteremia was at [facility]. She is receiving IV antibiotics 2x daily at [facility] but they have been having difficulty placing peripheral IVs. She was sent over here for PICC line. Unfortunately our PICC line team is not here today. After our nursing staff discussed with the rehab facility, we will place an ultrasound IV until the patient can have a PICC line placed/scheduled on Thursday. Patient denies any symptoms at this time. Related Data Home Medications Medication Instructions Recorded Confirmed latanoprost 0.005 % eye drops 1 drp EYE-BOTH BEDTIME 02/09/18 03/31/23 amlodipine 5 mg tablet (Norvasc) 5 mg PO QPM 03/29/18 03/31/23 metoprolol tartrate 25 mg tablet 12.5 mg PO BID 05/06/22 03/31/23 ipratropium 0.5 mg-albuterol 3 mg 3 ml inhalation 4XD 07/16/22 03/31/23 (2.5 mg base)/3 mL nebulization soln ipratropium 20 mcg-albuterol 100 1 puff inhalation 4XD 03/31/23 03/31/23 mcg/actuation mist for inhalation (Combivent Respimat) Previous Rx's Medication Instructions Recorded oxycodone 10 mg tablet 10 mg PO Q4H PRN Pain, Moderate 07/20/22 (4-6) #30 tabs linezolid 600 mg tablet 600 mg PO BID #20 tabs 04/06/23 Allergies Allergy/AdvReac Type Severity Reaction Status Date / Time cashew nut Allergy Severe Anaphylaxis Verified 02/27/21 16:45 ciprofloxacin [CIPROFLOXACIN] Allergy Intermediate HIVES UP Verified 12/18/22 11:23 ARM RIGHT AFTER IV DOSE STARTED nitrofurantoin Allergy Intermediate rash, Verified 12/18/22 11:23 [From MACRODANTIN] itching Review of Systems <Kyara Marie PA-C - Last Filed: 03/05/24 13:26> Review of Systems ROS Unobtainable: All systems reviewed & are unremarkable except as noted in HPI and below Patient History <Kyara Marie PA-C - Last Filed: 03/05/24 13:26> Medical History Gout Chronic UTI Arthritis Pulmonary embolism Unspecified essential hypertension Colitis with rectal bleeding Peristomal skin complication Lumbar hernia Retained urethral stent S/p nephrectomy Anticoagulated Chronic renal disease, stage 3, moderately decreased glomerular filtration rate (GFR) between 30-59 mL/min/1.[address] in place Leg swelling Easy bruisability Rectal carcinoma Port-A-Cath in place Neuropathy Incontinence Allergic reaction 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 Abnormal mammogram of right breast Parastomal hernia 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 Rectal cancer Surgical History History of ureter stent H/O nephrostomy H/O lithotripsy History of low anterior resection of rectum Family History Mother Hypertension Cancer Son Hypertension Grandfather Heart disease Social History marital status: number of children: 1 household members: none lives independently: Yes occupational status: previously employed and other Smoking Status: Current some day smoker Tobacco: How many years used: 60 alcohol intake: current substance use type: does not use caffeine: Yes Type(s) of exercise: none Smoking Status: Current some day smoker alcohol intake frequency: holidays/special occasions only Exam <Kyara Marie PA-C - Last Filed: 03/05/24 13:26> Narrative Exam Narrative: GENERAL: 83 year old patient appears stated age. Well-developed patient, in no acute distress. HEAD: Atraumatic. Normocephalic. EYES: Extraocular motions intact. No scleral icterus. No injection or drainage. ENT: Nose without bleeding, purulent drainage. Throat without erythema, tonsillar hypertrophy or exudate. Airway patent. NECK: Trachea midline. Cervical ROM intact. CARDIOVASCULAR: Regular rate and rhythm. RESPIRATORY: ?Nonlabored respirations. ?Speaking in clear, full sentences. ? GASTROINTESTINAL: L flank nephrostomy tube in place. EXTREMITIES: No edema or joint tenderness. L wrist IV in place, LUE IV in place. NEURO: AOx3. ?Clear speech. ?Moves all 4 extremities appropriately. SKIN: No rash or erythema of visible areas Initial Vital Signs Initial Vital Signs: Vital Signs Temperature 98.4 F 03/05/24 12:17 Pulse Rate 60 03/05/24 12:17 Respiratory Rate 16 03/05/24 12:17 Blood Pressure 145/66 H 03/05/24 12:17 Pulse Oximetry 97 03/05/24 12:17 Oxygen Delivery Method Room Air 03/05/24 12:17 <Lila ePtty MD - Last Filed: 03/05/24 16:57> Initial Vital Signs Initial Vital Signs: Vital Signs Temperature 98.4 F 03/05/24 12:17 Pulse Rate 60 03/05/24 12:17 Respiratory Rate 16 03/05/24 12:17 Blood Pressure 145/66 H 03/05/24 12:17 Pulse Oximetry 97 03/05/24 12:17 Oxygen Delivery Method Room Air 03/05/24 12:17 Course <Kyara Marie PA-C - Last Filed: 03/05/24 13:26> Vital Signs Vital signs: Vital Signs - 8 hr 03/05/24 12:17 Temperature 98.4 F Pulse Rate 60 Respiratory Rate 16 Blood Pressure 145/66 H Pulse Oximetry 97 Oxygen Delivery Method Room Air <Lila Petty MD - Last Filed: 03/05/24 16:57> Vital Signs Vital signs: Vital Signs - 8 hr 03/05/24 12:17 Temperature 98.4 F Pulse Rate 60 Respiratory Rate 16 Blood Pressure 145/66 H Pulse Oximetry 97 Oxygen Delivery Method Room Air MDM - Recheck/Abnormal Lab/Rx <Kyara Marie PA-C - Last Filed: 03/05/24 13:26> MDM Narrative Medical decision making narrative: 83-year-old female with a past medical history of daily IV antibiotics for for bacteremia secondary to UTI with a chronic left nephrostomy tube presents to the emergency department for PICC line placement at the advice of her rehab center as they are having difficulty placing peripheral IVs on her. Unfortunately our PICC team is not here today. Our nursing staff contacted the patient's facility to inform them that we are unable to place PICC line however we can place an ultrasound IV line for the patient to use this weekend until a PICC line can be placed on Thursday. Differential diagnosis includes but is not limited to need for PICC line, need for peripheral IV, bacteremia, UTI, etc.. On exam the patient is in no acute distress and has no complaints. Her vital signs are appropriate. A left upper arm IV was placed using ultrasound by nurse Cornelius. The patient received her antibiotics at her rehab facility and does not need them here in the ER. I had an extensive discussion with her about the importance of her prescribing doctor ordering for her to have a PICC line placed or returning to the ER on Thursday on the PICC team is here. Patient had a pre-existing left wrist peripheral IV which was removed. Patient is satisfied with this current plan and her facility is agreeable and understanding. Patient stable for discharge at this time. ER return precautions discussed. Discharge Plan Departure Patient Disposition: Home Clinical Impression: Encounter for intravenous line placement Activity Restrictions/Additional Instructions: Today we placed an 18 gauge IV in your left upper arm for antibiotic administration. Please contact the doctor who prescribes her antibiotics to schedule you for a PICC line placement on Thursday. The IV we placed today should be removed Thursday. Return to the ER if you develop pain, redness or discharge around the injection site, or any other concerns. (If you do not have a PCP you can call [phone]. ?to schedule an appointment with an [facility] Primary Care Provider) IF YOU DEVELOP ANY NEW OR WORSENING SYMPTOMS, RETURN TO THE ER! Please read the attached instructions, they highlight more specific treatments and interventions for you at home. Thank you for letting me participate in your care, Kyara Marie PA-C Prescriptions: No Action latanoprost 0.005 % drops 1 drp EYE-BOTH BEDTIME ipratropium-albuterol 0.5 mg-3 mg(2.5 mg base)/3 mL solution for nebulization 3 ml INHALATION 4XD Patient Comments: USE 1 VIAL VIA NEBULIZER FOUR TIMES DAILY oxycodone 10 mg Tablet 10 mg PO Q4H PRN (Reason: Pain, Moderate (4-6)) Qty: 30 0RF metoprolol tartrate 25 mg Tablet 12.5 mg PO BID amlodipine [Norvasc] 5 mg tablet 5 mg PO QPM Patient Comments: patient states takes at night Combivent Respimat 20-100 mcg/actuation mist 1 puff INHALATION 4XD linezolid 600 mg tablet 600 mg PO BID Qty: 20 0RF Referrals: Eric Grover MD [Primary Care Provider] - Stand Alone Forms: Patient Portal/API/Survey ED Sign-out <Lila Petty MD - Last Filed: 03/05/24 16:57> Cosign ED Attending Cosignature Attestation: I was immediately available in the department for consultation throughout this patient's visit. Lila Petty MD
== END 2024-03-05 13:05 | disposition home or self-care (01) ==
PROVIDERS: Emergency Provider Physician Assistant; PCP Family Medicine
DX: Z45.2 Encounter for adjustment and management of vascular access device (principal)
CPT/HCPCS: 99281

== ENCOUNTER → 2024-03-17 10:23 | Outpatient (CLI) | payer MEDICARE, SELFPAY ==
[2023-03-31 18:06] VITALS: BMI 31.3
--- NOTE | 2024-03-17 10:26 | DI.RAD.S_ITS ---
PROCEDURE: XR KNEE LT 3V INDICATIONS: Other specified disorders of bone, thigh TECHNIQUE: 3 views of the knee were acquired. COMPARISON: [facility], [place]ART[place], XR KNEE LT 1TO2V, 07/16/2022, 1:46. [facility], [place]ART[place]NE[place], KNEE 3V LEFT, 11/13/2015, 11:45. FINDINGS: Bones: Moderate arthrosis particularly the medial compartment again seen. No acute displaced fracture or dislocation. Soft tissues: Patellar enthesopathy. Vascular calcifications. IMPRESSION: Moderate arthrosis again seen. Patellar enthesopathy. If there is high concern for further derangement, consider MRI evaluation. Dictated by: Anton Morrell M.D. on 03/17/2024 at 15:11 Approved by: Anton Morrell M.D. on 03/17/2024 at 15:12
--- NOTE | 2024-03-17 10:26 | DI.RAD.S_ITS ---
PROCEDURE: XR FEMUR LT MIN 2V INDICATIONS: Other specified disorders of bone, thigh TECHNIQUE: 2 views of the femur were acquired. COMPARISON: [facility], [place], XR HIP 2 VIEWS LEFT, 08/28/2022, 7:40. [facility], CR, XR PELVIS WITH LATERAL HIP LEFT, 12/17/2023, 10:32. FINDINGS: Bones: Proximal femur fixation hardware is similar to prior. Background pubic symphysis and hip degenerative changes again seen. Proximal femur deformity is similar. Partially seen knee degenerative changes. Soft tissues: Vascular calcifications. IMPRESSION: Similar proximal femur fixation hardware and proximal fracture deformity. Hip and knee degenerative changes partially seen. Dictated by: Anton Morrell M.D. on 03/17/2024 at 15:12 Approved by: Anton Morrell M.D. on 03/17/2024 at 15:13
== END ==
PROVIDERS: PCP Family Medicine; Referring Provider Family Medicine; Visit Provider Family Medicine
DX: M17.12 Unilateral primary osteoarthritis, left knee (principal); M89.8X5 Other specified disorders of bone, thigh; S72.002S Fracture of unspecified part of neck of left femur, sequela
CPT/HCPCS: 73552; 73562; 99214

== ENCOUNTER → 2024-03-24 15:44 | Outpatient (CLI) | payer MEDICARE, SELFPAY ==
[2023-03-31 18:06] VITALS: BMI 31.3
[2024-03-24 16:58] LABS: Add Manual Diff / Slide Review NO; Basophils Absolute Auto 100 /uL (0-100); Basophils Percent Auto 0.7 % (0-2); Eosinophils Absolute Auto 200 /uL (0-450); Eosinophils Percent Auto 2.5 % (2-4); Lymphocytes Absolute Auto 1300 /uL (1100-4500); Lymphocytes Percent Auto 14.9 % (25-40); Mean Corpuscular HGB Conc 32.4 % (30-36); Mean Corpuscular Hemoglobin 27.7 PG (26-34); Mean Corpuscular Volume 85.4 fL (80-100); Monocytes Absolute Auto 900 /uL (0-900); Monocytes Percent Auto 10.2 % (3-14); Neutrophils Absolute Auto 6400 /uL (1500-7000); Neutrophils Percent Auto 71.7 % (50-75); Platelet Count 242 X10^3/uL (150-400); Red Blood Cell Count 3.63 X10^6/uL (4.0-5.2); White Blood Cell Count 8.9 X10^3/uL (4.5-11.0)
[2024-03-24 17:22] LABS: Anisocytosis 2+
== END ==
PROVIDERS: PCP Family Medicine; Referring Provider Internal Medicine Infectious Disease; Visit Provider Internal Medicine Infectious Disease
DX: R78.81 Bacteremia (principal)
CPT/HCPCS: 36415; 85025; 87040

== ENCOUNTER 2024-05-26 11:57 | Inpatient (IN) | payer MEDICARE, SELFPAY ==
[2023-03-31 18:06] VITALS: BMI 31.3
[2024-05-26 12:05] VITALS: BP 148/59; PULSE 70; RESP 18; TEMP 36.3; O2SAT 100; BMI 23.8
--- NOTE | 2024-05-26 12:09 | EKG_ITS ---
[address] [address] Test Date: 2024-05-26 Pat Name: Sherlyn Ward Department: [facility] Room: Gender: Female English Division Chair: AUDREY : 1940 Requested By: Order Number: [id number] Reading MD: Deejay Munroe Measurements Intervals [place] Rate: 65 P: 43 MT: 184 QRS: 16 QRSD: 78 T: 19 QT: 420 QTc: 436 Interpretive Statements Normal sinus rhythm Electronically Signed On 05-29-2024 18:55:46 PST by Deejay Munroe
[2024-05-26 12:31] LABS: Add Manual Diff / Slide Review NO; Basophils Absolute Auto 0 /uL (0-100); Basophils Percent Auto 0.3 % (0-2); Eosinophils Absolute Auto 100 /uL (0-450); Eosinophils Percent Auto 0.8 % (2-4); Hematocrit 32.7 % (36-46); Hemoglobin 10.4 g/dL (12.0-16.0); Lymphocytes Absolute Auto 900 /uL (1100-4500); Lymphocytes Percent Auto 8.4 % (25-40); Mean Corpuscular HGB Conc 31.8 % (30-36); Mean Corpuscular Hemoglobin 26.2 PG (26-34); Mean Corpuscular Volume 82.4 fL (80-100); Monocytes Absolute Auto 700 /uL (0-900); Monocytes Percent Auto 6.5 % (3-14); Neutrophils Absolute Auto 9100 /uL (1500-7000); Platelet Count 400 X10^3/uL (150-400); Red Blood Cell Count 3.97 X10^6/uL (4.0-5.2); Red Cell Distribution Width 16.8 % (11.6-14.8); White Blood Cell Count 10.9 X10^3/uL (4.5-11.0)
[2024-05-26 12:39] LABS: Alanine Aminotransferase 13 IU/L (<35); Albumin 3.9 g/dL (3.5-5.0); Albumin Globulin Ratio 0.9 (1.0-2.8); Alkaline Phosphatase 122 U/L (38-126); Aspartate Aminotransferase 16 IU/L (14-36); Bilirubin Total 0.4 mg/dL (0.2-1.3); Blood Urea Nitrogen 82 mg/dL (7-17); Calcium 9.2 mg/dL (8.4-10.2); Carbon Dioxide 12 mmol/L (22-32); Chloride 104 mmol/L (98-107); Estimated Glomerular Filt Rate 7 mL/min (>60); Globulin 4.5 g/dL (1.7-4.1); Glucose 113 mg/dL (80-110); HEMOLYSIS < 15 (0-50); Lipase 176 U/L (23-300); Potassium 3.5 mmol/L (3.4-5.1); Sodium 134 mmol/L (137-145); Total Protein 8.4 g/dL (6.3-8.2)
[2024-05-26 14:33] LABS: Appearance Urine UA CLOUDY; Bilirubin Urine UA NEGATIVE (NEGATIVE); Color Urine UA YELLOW; Glucose Urine UA NEGATIVE (Negative); Ketones Urine UA NEGATIVE (NEGATIVE); Leukocyte Esterase Urine UA 2+ (NEGATIVE); Nitrite Urine UA POSITIVE (Negative); Occult Blood Urine UA 3+ (Negative); Protein Urine UA 3+ (Negative); Urobilinogen Urine UA 0.2 E.U./dL (0.2); pH Urine UA 6.5 (4.5-8.0)
[2024-05-26 14:34] LABS: Urine Volume 10mL (spun)
[2024-05-26 14:35] LABS: Bacteria Urine Many (>30); Culture Indicated Urine Specimen Cultured; RBC Urine >100/HPF (0-5/HPF); Squamous Epithelial Cell Urine None Seen (0-5/HPF); WBC Urine >100/HPF (0-5/HPF)
--- NOTE | 2024-05-26 14:41 | PC.NURSE ---
Pt reports being sick since Thursday. Reports lot of liquid in bag; states she had labs taken at PCP on Thursday. Pt states the liquid in ostomy stopped this morning. Reports n/v on Thursday and Thursday but stopped. Pt reports her urine looks very dark--pt states she has a nephrostomy tube. Pt reports lots of weakness and states she has not been eating a lot. Pt endorses headaches over the crown of her head. Pt reports she gets around w/ a walker. Pt reports she only has 1 kidney. Reports having nephrostomy b/c she was prone to frequent UTI.
[2024-05-26 14:45] VITALS: BP 104/54
[2024-05-26 15:00] VITALS: BP 118/56; PULSE 66; O2SAT 98
--- NOTE | 2024-05-26 15:15 | ED.WEAKNESS ---
HPI - Weakness General Chief complaint: Weakness Stated complaint: Dehydrated not feeling well Time Seen by Provider: 05/26/24 14:54 Source: patient Mode of arrival: Ambulatory History of Present Illness HPI Narrative: Patient brought here from home. Patient lives with son. No known sick contacts. Has had nonbloody vomiting diarrhea and increase output into her ostomy bag. Today it has improved. Feels tired weak and dehydrated. Patient does look dehydrated. No prior history of kidney problems. History of UTIs in the past and it does feel similar. Has had 1 week of vomiting diarrhea and dysuria. Related Data Home Medications Medication Instructions Recorded Confirmed latanoprost 0.005 % eye drops 1 drp EYE-BOTH BEDTIME 02/09/18 05/26/24 amlodipine 5 mg tablet (Norvasc) 5 mg PO QPM 03/29/18 05/26/24 metoprolol tartrate 25 mg tablet 12.5 mg PO BID 05/06/22 05/26/24 ipratropium 0.5 mg-albuterol 3 mg 3 ml inhalation 4XD 07/16/22 05/26/24 (2.5 mg base)/3 mL nebulization soln ipratropium 20 mcg-albuterol 100 1 puff inhalation 4XD 03/31/23 05/26/24 mcg/actuation mist for inhalation (Combivent Respimat) apixaban 2.5 mg tablet 2.5 mg PO BID 03/17/24 05/26/24 betamethasone dipropionate 0.05 % 1 applic topical DAILY PRN Rash 03/17/24 05/26/24 topical cream ergocalciferol (vitamin D2) 1,250 1,250 mcg PO QWEEK 03/17/24 05/26/24 mcg (50,000 unit) capsule lorazepam 0.5 mg tablet 0.5 mg PO DAILY PRN Anxiety 03/17/24 05/26/24 miconazole nitrate 2 % topical 1 applic topical DAILY 03/17/24 05/26/24 cream omeprazole 20 mg capsule,delayed 20 mg PO DAILY 03/17/24 05/26/24 release oxycodone-acetaminophen 5 mg-325 2.5 ml PO Q4-6H PRN Pain (Scale 03/17/24 05/26/24 mg/5 mL oral solution Score 4-6) trazodone 50 mg tablet 50 mg PO BEDTIME PRN LORI 03/17/24 05/26/24 Previous Rx's Medication Instructions Recorded oxycodone 10 mg tablet 10 mg PO Q4H PRN Pain, Moderate 07/20/22 (4-6) #30 tabs Allergies Allergy/AdvReac Type Severity Reaction Status Date / Time cashew nut Allergy Severe Anaphylaxis Verified 05/26/24 12:04 ciprofloxacin [CIPROFLOXACIN] Allergy Intermediate HIVES UP Verified 05/26/24 12:04 ARM RIGHT AFTER IV DOSE STARTED nitrofurantoin Allergy Intermediate rash, Verified 05/26/24 12:04 [From MACRODANTIN] itching Review of Systems Review of Systems Narrative: GENERAL: Negative chills, fatigue, malaise, fever, sweats. HEENT: Negative sinus pain, ear pain, sore throat RESPIRATORY: Negative dyspnea, cough CARDIOVASCULAR: Negative chest pain, palpitations GASTROINTESTINAL: Pauses of nonbloody diarrhea and nausea, vomiting, negative abdominal pain : Positive dysuria, frequency, negative hematuria MUSCULOSKELETAL: Negative muscle or bony pain SKIN: Negative rash, skin lesions NEUROLOGIC: Negative weakness, numbness ROS Unobtainable: All systems reviewed & are unremarkable except as noted in HPI and below Patient History Medical History Hx of fracture of femur Hx of deep venous thrombosis Hx of primary hypertension Hx of gastroesophageal reflux (GERD) History of COPD Hx of renal cell cancer Gout Chronic UTI Arthritis Pulmonary embolism Unspecified essential hypertension Colitis with rectal bleeding Peristomal skin complication Lumbar hernia Retained urethral stent S/p nephrectomy Anticoagulated Chronic renal disease, stage 3, moderately decreased glomerular filtration rate (GFR) between 30-59 mL/min/1.73 square meter Colostomy in place Leg swelling Easy bruisability Rectal carcinoma Port-A-Cath in place Neuropathy Incontinence Allergic reaction 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 Abnormal mammogram of right breast Parastomal hernia 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 Rectal cancer Surgical History History of ureter stent H/O nephrostomy H/O lithotripsy History of low anterior resection of rectum Family History Mother Hypertension Cancer Son Hypertension Grandfather Heart disease Cancer Granddaughter Eczema Social History marital status: number of children: 1 household members: children lives independently: Yes occupational status: previously employed and other Smoking Status: Current some day smoker Tobacco: How many years used: 60 alcohol intake: current substance use type: does not use caffeine: Yes Type(s) of exercise: none Smoking Status: Current some day smoker alcohol intake frequency: holidays/special occasions only Exam Narrative Exam Narrative: GENERAL: in no distress, not toxic not dyspneic HEAD: Normocephalic. EYES: Pupils equal round ENT: Mucous membranes moist. NECK: Trachea midline. CARDIOVASCULAR: Regular rate and rhythm RESPIRATORY: Clear to auscultation. Breath sounds equal bilaterally. No wheezes, rales, or rhonchi. GASTROINTESTINAL: Abdomen soft, nontender no peritoneal signs bowel sounds are present. No pain out of portion of exam no guarding or rebound. EXTREMITIES: No gross deformities. BACK: No flank tenderness. NEURO: AOx4. Clear speech SKIN: Warm and dry PSYCH: Not anxious, is cooperative Initial Vital Signs Initial Vital Signs: Vital Signs Temperature 97.4 F L 05/26/24 12:05 Pulse Rate 70 05/26/24 12:05 Respiratory Rate 18 05/26/24 12:05 Blood Pressure 148/59 H 05/26/24 12:05 Pulse Oximetry 100 05/26/24 12:05 Oxygen Delivery Method Room Air 05/26/24 12:05 Course Orders Ordered: Albuterol/Ipratropium (Albuterol/Ipratropium 3 Ml Ampul) 3 ml INH [id number] [facility] Last Admin: 05/26/24 21:51 Dose: 3 ml Documented By: MARIANA Amlodipine Besylate (Amlodipine 5 Mg Tablet) 5 mg PO QPM [facility] Apixaban (Apixaban 5 Mg Tablet) 2.5 mg PO BID [facility] Last Admin: 05/26/24 21:13 Dose: 2.5 mg Documented By: SHAYLEE Betamethasone Dipropionate (Betamethasone Dip 0.05% Cream 15 Gm) 1 applic TOP DAILY PRN PRN Reason: Rash Docusate Sodium (Docusate 100 Mg Capsule) 100 mg PO BID [facility] Last Admin: 05/26/24 21:08 Dose: 100 mg Documented By: SHAYLEE Ergocalciferol (Ergocalciferol (Vitamin D2) 50,000 Unit Capsule) 50,000 unit PO WEEKLY [facility] Last Admin: 05/26/24 21:14 Dose: Not Given Documented By: SHAYLEE Sodium Chloride (Normal Saline 0.9%) 1,000 mls @ 150 mls/hr IV CONT [facility] Last Admin: 05/26/24 20:01 Dose: 150 mls/hr Documented By: SHAYLEE Ceftriaxone Sodium 2,000 mg/ (Sodium Chloride) 100 mls @ 200 mls/hr IV Q24H [facility] Latanoprost (Latanoprost 0.005% Ophth 2.5 Ml) 1 drops EYE-BOTH BEDTIME [facility] Last Admin: 05/26/24 21:14 Dose: Not Given Documented By: SHAYLEE Lorazepam (Lorazepam 0.5 Mg Tablet) 0.5 mg PO DAILY PRN PRN Reason: Anxiety Metoprolol Tartrate (Metoprolol Ir 25 Mg Tablet) 12.5 mg PO BID [facility] Last Admin: 05/26/24 21:13 Dose: 12.5 mg Documented By: SHAYLEE Naloxone HCl (Naloxone 0.4 Mg/Ml Vial) 0.2 mg IV Q2MIN PRN PRN Reason: Opiate Reversal Nystatin (Nystatin Cream 30 Gm) 1 applic TOP DAILY [facility] Ondansetron HCl (Ondansetron 4 Mg/2 Ml Inj) 4 mg IV NOW PRN PRN Reason: Nausea And Vomiting Ondansetron HCl (Ondansetron 4 Mg Odt) 4 mg PO NOW PRN PRN Reason: Nausea And Vomiting Oxycodone HCl (Oxycodone Ir 10 Mg Tablet) 10 mg PO Q3HR PRN PRN Reason: Pain, Severe (7-10) Last Admin: 05/27/24 05:44 Dose: 10 mg Documented By: Admin: 05/27/24 00:26 Dose: 10 mg Documented By: Oxycodone HCl (Oxycodone Ir 5 Mg Tablet) 5 mg PO Q3HR PRN PRN Reason: Pain, Moderate (4-6) Pantoprazole Sodium (Pantoprazole Dr 20 Mg Tablet) 20 mg PO 0600 [facility] Last Admin: 05/27/24 05:36 Dose: 20 mg Documented By: Trazodone HCl (Trazodone 50 Mg Tablet) 50 mg PO BEDTIME PRN PRN Reason: LORI Discontinued Medications Ceftriaxone Sodium 2,000 mg/ (Sodium Chloride) 100 mls @ 200 mls/hr IV NOW ONE Stop: 05/26/24 15:15 Last Infusion: 05/26/24 15:59 Dose: Infused Documented By: Admin: 05/26/24 15:19 Dose: 200 mls/hr Documented By: RASHEL Sodium Chloride (Normal Saline 0.9%) 1,000 mls @ 1,000 mls/hr IV BOLUS ONE Stop: 05/26/24 16:13 Last Infusion: 05/26/24 16:24 Dose: Infused Documented By: Infusion: 05/26/24 16:18 Dose: 0 mls/hr Documented By: Admin: 05/26/24 15:19 Dose: 1,000 mls/hr Documented By: RASHEL Sodium Chloride (Normal Saline 0.9%) 1,000 mls @ 1,000 mls/hr IV BOLUS ONE Stop: 05/26/24 17:10 Last Infusion: 05/26/24 17:52 Dose: Infused Documented By: Admin: 05/26/24 16:19 Dose: 1,000 mls/hr Documented By: RASHEL Vital Signs Vital signs: Vital Signs - 8 hr 05/26/24 12:05 05/26/24 14:45 05/26/24 15:00 Temperature 97.4 F L Pulse Rate 70 66 Respiratory Rate 18 Blood Pressure 148/59 H 104/54 L 118/56 L Pulse Oximetry 100 98 Oxygen Delivery Method Room Air Room Air MDM - Weakness Lab Data 05/27/24 05:00 05/27/24 05:00 Labs: Lab Results 05/26/24 05/26/24 Range/Units 12:17 14:11 WBC 10.9 (4.5-11.0) X10^3/uL RBC 3.97 L (4.0-5.2) X10^6/uL Hgb 10.4 L (12.0-16.0) g/dL Hct 32.7 L (36-46) % MCV 82.4 (80-100) fL MCH 26.2 (26-34) PG MCHC 31.8 (30-36) % RDW 16.8 H (11.6-14.8) % Plt Count 400 (150-400) X10^3/uL Neut % (Auto) 84.0 H (50-75) % Lymph % (Auto) 8.4 L (25-40) % [place] % (Auto) 6.5 (3-14) % Eos % (Auto) 0.8 L (2-4) % Baso % (Auto) 0.3 (0-2) % Neut # (Auto) 9100 H (7686-1700) /uL Lymph # (Auto) 900 L (2164-1116) /uL [place] # (Auto) 700 (0-900) /uL Eos # (Auto) 100 (0-450) /uL Baso # (Auto) 0 (0-100) /uL Sodium 134 L (137-145) mmol/L Potassium 3.5 (3.4-5.1) mmol/L Chloride 104 (98-107) mmol/L Carbon Dioxide 12 L (22-32) mmol/L BUN 82 H (7-17) mg/dL Creatinine 5.85 H (0.52-1.04) mg/dL Estimated GFR 7 L (>60) mL/min BUN/Creatinine Ratio 14.0 (6-22) Glucose 113 H (80-110) mg/dL Calcium 9.2 (8.4-10.2) mg/dL Total Bilirubin 0.4 (0.2-1.3) mg/dL AST 16 (14-36) IU/L ALT 13 (<35) IU/L Alkaline Phosphatase 122 (38-126) U/L Total Protein 8.4 H (6.3-8.2) g/dL Albumin 3.9 (3.5-5.0) g/dL Globulin 4.5 H (1.7-4.1) g/dL Albumin/Globulin Ratio 0.9 L (1.0-2.8) Lipase 176 (23-300) U/L Urine Color Yellow Urine Appearance Cloudy Urine pH 6.5 (4.5-8.0) Ur Specific [place] 1.020 (1.000-1.035) Urine Protein 3+ H (Negative) Urine Glucose (UA) Negative (Negative) g/dL Urine Ketones Negative (NEGATIVE) Urine Occult Blood 3+ H (Negative) Urine Nitrate Positive H (Negative) Urine Bilirubin Negative (NEGATIVE) Urine Urobilinogen 0.2 (0.2) E.U./dL Ur Leukocyte Esterase 2+ H (NEGATIVE) Urine RBC >100/hpf H (0-5/HPF) Urine WBC >100/hpf H (0-5/HPF) Ur Squamous Epith Cells None seen (0-5/HPF) Urine Bacteria Many (>30) H (None) Ur Culture Indicated? Specimen cultured Vol Urine Centrifuged 10ml (spun) Imaging Data CT scan - abdomen/pelvis: Radiologist Impression: [address] [address] [address] Scan Report Signed Patient: Sherlyn Ward MR#: [id number] : 1940 Acct:[id number] Age/Sex: 84 / F Date of Service: 05/26/24 Loc: 214-1 Accession Number: [id number] Procedure: CT abdomen pelvis wo con Ordering Provider: Jeremiah Layne MD PROCEDURE: CT ABDOMEN PELVIS WO CON INDICATIONS: Nausea vomiting diarrhea TECHNIQUE: Axial sections were acquired from the lung bases to the pubic symphysis. Coronal and sagittal reformats were performed. For radiation dose reduction, the following was used: automated exposure control, adjustment of mA and/or kV according to patient size. COMPARISON: [facility], CT, CT ABDOMEN PELVIS WO CON, 02/27/2021, 23:28. [facility], CT, CT ABDOMEN PELVIS WITHOUT CONTRAST, 09/22/2023, 0:54. FINDINGS: Image quality: Diagnostic Lower chest: Basal atelectasis. Borderline cardiomegaly. Coronary calcifications, valvular and annular calcifications. Liver: No contour deforming mass. There are possible small cysts. Solid organs are not well assessed without IV contrast Gallbladder and biliary system: Unremarkable, mildly ectatic biliary system again seen, but not well evaluated on this study, with CBD measuring 6-7 mm Pancreas: Moderate to severe parenchymal fatty atrophy Spleen: Nonenlarged Adrenals: No discrete nodules Kidneys: Right kidney is not seen. Left external nephrostomy. Persistent significant periureteral and peripelvic edematous fat stranding. Many lesions of different densities are seen in the left kidney. These are presumed to represent cysts with different internal contents, better assessed on ultrasound . A mid left ureter stone is again seen measuring 8 mm. Vessels and lymph nodes: Dense atherosclerotic calcifications. There are prominent mediastinal and upper abdominal lymph nodes, indeterminate, again seen. Differential includes reactive lymph nodes Bowel and peritoneum: No small bowel obstruction. No pathologic ascites. No drainable fluid collection. Nonspecific right abdominal mesenteric edema within the mesentery. Perirectal edematous fat stranding and fluid with wall thickening, also seen previously. More focal stool is seen in the rectum Body wall: Multiple abdominal wall hernias, in the left with a wide neck containing nonobstructed bowel, in the right lower quadrant also containing nonobstructed bowel, extending to the midline. Right flank hernia contains liver and colon. Other smaller fat containing hernias again seen. Pelvis: Bladder is under distended. Reproductive organs are unremarkable on limited CT evaluation Bones: Similar appearance of the partially seen left femur hardware. There are degenerative osseous changes. L5 height loss again seen. IMPRESSION: No small bowel obstruction. Nonspecific mesenteric edema again seen. No drainable ascites or abscess. Multiple abdominal wall hernias without acute obstruction. Persistent edematous fat stranding around the right kidney and ureter. Nephrostomy in place. Mid ureter stone again seen. Possible findings of proctitis and surrounding edema, also seen previously. Many other incidental and stable findings, as described above. Dictated by: Anton Morrell M.D. on 05/26/2024 at 17:01 Approved by: Anton Morrell M.D. on 05/26/2024 at 17:10 [facility] Narrative Medical decision making narrative: Patient brought here from home. Patient lives with son. No known sick contacts. Has had nonbloody vomiting diarrhea and increase output into her ostomy bag. Today it has improved. Feels tired weak and dehydrated. Patient does look dehydrated. No prior history of kidney problems. History of UTIs in the past and it does feel similar. Has had 1 week of vomiting diarrhea and dysuria. After history and exam CBC CMP urinalysis CT abdomen pelvis without contrast normal saline Rocephin [facility] Medical records reviewed: No recent visit for this complaint Differential considered: Includes but not limited to UTI dehydration kidney injury Lab Test results independently reviewed as above. Pertinent findings: WBC 10.9 hemoglobin 10.4 sodium 134 BUN 82 creatinine 5.85 GFR 7 urinalysis positive nitrate positive leukocyte esterase greater 100 WBC, repeat CMP did show improving renal function after 2 L normal saline. Independently reviewed EKG normal sinus rhythm rate 65 normal EKG Imaging studies independently reviewed: CT abdomen pelvis no acute finding Consultations: 3:18 p.m.. Spoke with primary on-call for Dr. Grover, spoke with Dr. Hernandez, who will see patient for admission Treatments: Normal saline Rocephin Re-evaluations: 3:25 p.m.. Updated patient and son results. They do agree for admission for IV hydration and antibiotics treating for UTI. Discussion: Appropriate for admission for IV fluids and antibiotics. Primary Care was contacted for admission. Diagnosis: Acute renal injury UTI dehydration Discharge Plan Departure Patient Disposition: Admitted as Observation Clinical Impression: Acute UTI, Acute kidney injury Admit Date/Time: 05/26/24 15:20 Admit Provider: Adolfo Hernandez
[2024-05-26] MEDS: cefTRIAXone 2,000 MG in SODIUM CHLORIDE 0.9% 100 ML 200 MG IV (15:19)
[2024-05-26] MEDS: SODIUM CHLORIDE 0.9% 1,000 ML 1000 ML IV ×2 (15:19→16:19)
[2024-05-26 17:36] LABS: BUN Creatinine Ratio 15.7 (6-22); Blood Urea Nitrogen 77 mg/dL (7-17); Calcium 8.2 mg/dL (8.4-10.2); Carbon Dioxide 10 mmol/L (22-32); Chloride 111 mmol/L (98-107); Estimated Glomerular Filt Rate 8 mL/min (>60); Glucose 96 mg/dL (80-110); HEMOLYSIS 27 (0-50); Potassium 3.8 mmol/L (3.4-5.1); Sodium 138 mmol/L (137-145)
[2024-05-26 18:32] VITALS: BMI 25.2
--- NOTE | 2024-05-26 19:07 | PM.HP.1 ---
History of Present Illness History of Present Illness Date Patient Seen: 05/26/24 Time Patient Seen: 18:39 Chief complaint: Dehydrated not feeling well Narrative: CC: acute kidney injury Complex patient well known to our service with single kidney draining via nephrostomy as well as colostomy bag at baseline, presented to ED with several days of watery output from colostomy bag and reduced darker output from nephrostomy bag, feeling poorly. Found to have UTI and acute drop in her creatinine clearance which did respond to intravenous hydration. She does report the watery output from her colostomy has stopped she feels much better after fluids from ED. [facility] Medical History Hx of fracture of femur Hx of deep venous thrombosis Hx of primary hypertension Hx of gastroesophageal reflux (GERD) History of COPD Hx of renal cell cancer Gout Chronic UTI Arthritis Pulmonary embolism Unspecified essential hypertension Colitis with rectal bleeding Peristomal skin complication Lumbar hernia Retained urethral stent S/p nephrectomy Anticoagulated Chronic renal disease, stage 3, moderately decreased glomerular filtration rate (GFR) between 30-59 mL/min/1.73 square meter Colostomy in place Leg swelling Easy bruisability Rectal carcinoma Port-A-Cath in place Neuropathy Incontinence Allergic reaction 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 Abnormal mammogram of right breast Parastomal hernia 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 Rectal cancer Surgical History History of ureter stent H/O nephrostomy H/O lithotripsy History of low anterior resection of rectum Family History Mother Hypertension Cancer Son Hypertension Grandfather Heart disease Cancer Granddaughter Eczema Social History marital status: number of children: 1 household members: children lives independently: Yes occupational status: previously employed and other Smoking Status: Current some day smoker Tobacco: How many years used: 60 alcohol intake: current substance use type: does not use caffeine: Yes Type(s) of exercise: none Meds Home Medications and Allergies Home Medications Medication Instructions Recorded Confirmed Type latanoprost 0.005 % eye drops 1 drp EYE-BOTH BEDTIME 02/09/18 05/26/24 History amlodipine 5 mg tablet (Norvasc) 5 mg PO QPM 03/29/18 05/26/24 History metoprolol tartrate 25 mg tablet 12.5 mg PO BID 05/06/22 05/26/24 History ipratropium 0.5 mg-albuterol 3 mg 3 ml inhalation 4XD 07/16/22 05/26/24 History (2.5 mg base)/3 mL nebulization soln oxycodone 10 mg tablet 10 mg PO Q4H PRN Pain, Moderate 07/20/22 05/26/24 Rx (4-6) #30 tabs ipratropium 20 mcg-albuterol 100 1 puff inhalation 4XD 03/31/23 05/26/24 History mcg/actuation mist for inhalation (Combivent Respimat) apixaban 2.5 mg tablet 2.5 mg PO BID 03/17/24 05/26/24 History betamethasone dipropionate 0.05 % 1 applic topical DAILY PRN Rash 03/17/24 05/26/24 History topical cream ergocalciferol (vitamin D2) 1,250 1,250 mcg PO QWEEK 03/17/24 05/26/24 History mcg (50,000 unit) capsule lorazepam 0.5 mg tablet 0.5 mg PO DAILY PRN Anxiety 03/17/24 05/26/24 History miconazole nitrate 2 % topical 1 applic topical DAILY 03/17/24 05/26/24 History cream omeprazole 20 mg capsule,delayed 20 mg PO DAILY 03/17/24 05/26/24 History release oxycodone-acetaminophen 5 mg-325 2.5 ml PO Q4-6H PRN Pain (Scale 03/17/24 05/26/24 History mg/5 mL oral solution Score 4-6) trazodone 50 mg tablet 50 mg PO BEDTIME PRN LORI 03/17/24 05/26/24 History Allergies Allergy/AdvReac Type Severity Reaction Status Date / Time cashew nut Allergy Severe Anaphylaxis Verified 05/26/24 12:04 ciprofloxacin [CIPROFLOXACIN] Allergy Intermediate HIVES UP Verified 05/26/24 12:04 ARM RIGHT AFTER IV DOSE STARTED nitrofurantoin Allergy Intermediate rash, Verified 05/26/24 12:04 [From MACRODANTIN] itching Review of Systems Review of Systems Narrative: all systems reviewed and negative except as otherwise noted in HPI Exam Vital Signs (past 8 hours): - 05/26/24 12:05 05/26/24 14:45 05/26/24 15:00 Temperature 97.4 F L Pulse Rate 70 66 Respiratory Rate 18 Blood Pressure 148/59 H 104/54 L 118/56 L Pulse Oximetry 100 98 Oxygen Delivery Method Room Air Room Air Oxygen Delivery Method Room Air Const Other: well developed well nourished Resp Other: clear to auscultation on room air bilaterally Cardio Other: regular rate, s1/s2 well perfused minimal pedal edema GI Other: active bowel sounds, distended triple hernia with colostomy bag on LLQ looks good no surrounding erythema Other: draining clear yellow urine via L sided nephrostomy with no surrounding erythema Neuro Other: alert awake oriented x3 moving all limbs requires assist to mobilize Objective Labs 05/26/24 12:17 05/26/24 17:10 Labs: Laboratory Results - last 24 hr 05/26/24 05/26/24 05/26/24 12:17 14:11 17:10 WBC 10.9 RBC 3.97 L Hgb 10.4 L Hct 32.7 L MCV 82.4 MCH 26.2 MCHC 31.8 RDW 16.8 H Plt Count 400 Neut % (Auto) 84.0 H Lymph % (Auto) 8.4 L [place] % (Auto) 6.5 Eos % (Auto) 0.8 L Baso % (Auto) 0.3 Neut # (Auto) 9100 H Lymph # (Auto) 900 L [place] # (Auto) 700 Eos # (Auto) 100 Baso # (Auto) 0 Sodium 134 L 138 Potassium 3.5 3.8 Chloride 104 111 H Carbon Dioxide 12 L 10 L BUN 82 H 77 H Creatinine 5.85 H 4.89 H Estimated GFR 7 L 8 L BUN/Creatinine Ratio 14.0 15.7 Glucose 113 H 96 Calcium 9.2 8.2 L Total Bilirubin 0.4 AST 16 ALT 13 Alkaline Phosphatase 122 Total Protein 8.4 H Albumin 3.9 Globulin 4.5 H Albumin/Globulin Ratio 0.9 L Lipase 176 Urine Color Yellow Urine Appearance Cloudy Urine pH 6.5 Ur Specific [place] 1.020 Urine Protein 3+ H Urine Glucose (UA) Negative Urine Ketones Negative Urine Occult Blood 3+ H Urine Nitrate Positive H Urine Bilirubin Negative Urine Urobilinogen 0.2 Ur Leukocyte Esterase 2+ H Urine RBC >100/hpf H Urine WBC >100/hpf H Ur Squamous Epith Cells None seen Urine Bacteria Many (>30) H Ur Culture Indicated? Specimen cultured Vol Urine Centrifuged 10ml (spun) Assessment & Plan Assessment & Plan narrative: #UTI with hematuria #chronic nephrostomy status #single kidney status Discussed with Dr. Layne the situation - she has lost a fair amount of fluid through the colostomy and her creatinine is building up - on bolusing her she reports she did have excellent UOP and per Dr. Layne she did have an improvement in her creatinine clearance in the ED after hydration which i considered a promising sign necessary for accepting this admission given our lack of nephrology support at our facility. Will plan on continuing to treat the UTI with rocephin and IVF at 150 - track creatinine status and hope this recovers back to baseline #colostomy status stable no issues with bag, the watery output has ceased I do suspect possible norovirus #hx of afib continue home BB and eliquis #glaucoma stable continue latanoprost #GERD stable continue home meds #COPD stable breathing ok today continue home meds #anxiety/sleep stable continue prns Dispo: admit obsv for hydration and kidney monitoring with URI treatment PCP: Lenore Code: full MDM: Julito carpio Time-Based Coding :: [TOTAL MINUTES] spent with patient and on the chart (including review of chart, obtaining history, exam, reviewing outside data, placing orders, documenting exam and treatment plan, and counseling patient) on [DATE]. Quality VTE Deep Vein Thrombosis/Pulmonary Embolism Present on Admission: No
[2024-05-26] MEDS: SODIUM CHLORIDE 0.9% 1,000 ML 150 ML IV (20:01)
[2024-05-26 20:58] VITALS: BP 137/72; PULSE 72; RESP 17; TEMP 36.1; O2SAT 97
[2024-05-26] MEDS: DOCUSATE 100 MG CAPSULE PO (21:08)
[2024-05-26] MEDS: APIXABAN 5 MG TABLET 2.5 MG PO (21:13)
[2024-05-26] MEDS: METOPROLOL IR 25 MG TABLET 12.5 MG PO (21:13)
[2024-05-26 21:51] VITALS: PULSE 72; RESP 16; O2SAT 100
[2024-05-26] MEDS: ALBUTEROL/IPRATROPIUM 3 ML AMPUL INH (21:51)
[2024-05-27] MEDS: OXYCODONE IR 10 MG TABLET PO ×4 (00:26→23:35)
[2024-05-27 04:32] VITALS: BP 136/71; PULSE 69; RESP 16; TEMP 36.4; O2SAT 98
[2024-05-27] MEDS: PANTOPRAZOLE DR 20 MG TABLET PO (05:36)
[2024-05-27 06:29] LABS: Add Manual Diff / Slide Review NO; Basophils Absolute Auto 0 /uL (0-100); Basophils Percent Auto 0.4 % (0-2); Eosinophils Absolute Auto 200 /uL (0-450); Eosinophils Percent Auto 2.4 % (2-4); Hematocrit 26.5 % (36-46); Hemoglobin 8.7 g/dL (12.0-16.0); Lymphocytes Absolute Auto 1100 /uL (1100-4500); Lymphocytes Percent Auto 15.4 % (25-40); Mean Corpuscular HGB Conc 32.7 % (30-36); Mean Corpuscular Volume 82.4 fL (80-100); Monocytes Absolute Auto 800 /uL (0-900); Monocytes Percent Auto 11.2 % (3-14); Neutrophils Absolute Auto 5200 /uL (1500-7000); Neutrophils Percent Auto 70.6 % (50-75); Platelet Count 289 X10^3/uL (150-400); Red Blood Cell Count 3.22 X10^6/uL (4.0-5.2); Red Cell Distribution Width 16.1 % (11.6-14.8); White Blood Cell Count 7.4 X10^3/uL (4.5-11.0)
[2024-05-27 06:49] LABS: Alanine Aminotransferase 8 IU/L (<35); Albumin 2.9 g/dL (3.5-5.0); Albumin Globulin Ratio 0.8 (1.0-2.8); Alkaline Phosphatase 95 U/L (38-126); Aspartate Aminotransferase 11 IU/L (14-36); Bilirubin Total 0.2 mg/dL (0.2-1.3); Blood Urea Nitrogen 65 mg/dL (7-17); Calcium 8.4 mg/dL (8.4-10.2); Carbon Dioxide 14 mmol/L (22-32); Chloride 110 mmol/L (98-107); Estimated Glomerular Filt Rate 10 mL/min (>60); Globulin 3.8 g/dL (1.7-4.1); Glucose 92 mg/dL (80-110); HEMOLYSIS < 15 (0-50); Potassium 3.4 mmol/L (3.4-5.1); Sodium 137 mmol/L (137-145); Total Protein 6.7 g/dL (6.3-8.2)
--- NOTE | 2024-05-27 06:52 | PC.RNWOUND ---
Late Entry: Wound photo, Bryn MUNIZ [id number].
[2024-05-27 08:00] VITALS: BP 126/43; PULSE 68; RESP 21; TEMP 35.6; O2SAT 99
[2024-05-27] MEDS: APIXABAN 5 MG TABLET 2.5 MG PO ×2 (09:23→21:39)
[2024-05-27] MEDS: METOPROLOL IR 25 MG TABLET 12.5 MG PO ×2 (09:23→21:38)
[2024-05-27] MEDS: DOCUSATE 100 MG CAPSULE PO (09:26)
--- NOTE | 2024-05-27 11:56 | P.PN_ITS ---
Subjective Subjective Date Patient Seen: 05/27/24 Time Patient Seen: 09:00 Interval history: CC: acute kidney failure, watery diarrhea Feeling ok this morning creatinine has improved some but still rather tenuous. Discussed case with her dry cleaner Dr. Grant Ramírez of [facility] he is reassured with progress and normal vitals - continue fluids at 100 mL/hr and encourage oral intake. Exam Vital Signs (past 8 hours): - 05/27/24 04:32 05/27/24 08:00 Temperature 97.5 F L 96.0 F L Pulse Rate 69 68 Respiratory Rate 16 21 Blood Pressure 136/71 126/43 L Pulse Oximetry 98 99 Oxygen Flow Rate 0 Fraction of Inspired Oxygen 21 SaO2/FiO2 Ratio 476 Oxygen Delivery Method Room Air Oxygen Flow Rate 0 Narrative Exam Narrative: laying on hospital bed Const Other: well developed well nourished Resp Other: clear to ausctultation bilaterally Cardio Other: regular rate s1/s2 minimal pedal edema GI Other: colostomy bag in place active bowel sounds Other: straw yellow urine output from L flank nephrostomy Objective Labs 05/27/24 05:00 05/27/24 05:00 Labs: Laboratory Results - last 24 hr 05/26/24 05/26/24 05/26/24 12:17 14:11 17:10 WBC 10.9 RBC 3.97 L Hgb 10.4 L Hct 32.7 L MCV 82.4 MCH 26.2 MCHC 31.8 RDW 16.8 H Plt Count 400 Neut % (Auto) 84.0 H Lymph % (Auto) 8.4 L [place] % (Auto) 6.5 Eos % (Auto) 0.8 L Baso % (Auto) 0.3 Neut # (Auto) 9100 H Lymph # (Auto) 900 L [place] # (Auto) 700 Eos # (Auto) 100 Baso # (Auto) 0 Sodium 134 L 138 Potassium 3.5 3.8 Chloride 104 111 H Carbon Dioxide 12 L 10 L BUN 82 H 77 H Creatinine 5.85 H 4.89 H Estimated GFR 7 L 8 L BUN/Creatinine Ratio 14.0 15.7 Glucose 113 H 96 Calcium 9.2 8.2 L Total Bilirubin 0.4 AST 16 ALT 13 Alkaline Phosphatase 122 Total Protein 8.4 H Albumin 3.9 Globulin 4.5 H Albumin/Globulin Ratio 0.9 L Lipase 176 Urine Color Yellow Urine Appearance Cloudy Urine pH 6.5 Ur Specific [place] 1.020 Urine Protein 3+ H Urine Glucose (UA) Negative Urine Ketones Negative Urine Occult Blood 3+ H Urine Nitrate Positive H Urine Bilirubin Negative Urine Urobilinogen 0.2 Ur Leukocyte Esterase 2+ H Urine RBC >100/hpf H Urine WBC >100/hpf H Ur Squamous Epith Cells None seen Urine Bacteria Many (>30) H Ur Culture Indicated? Specimen cultured Vol Urine Centrifuged 10ml (spun) 05/27/24 05:00 WBC 7.4 RBC 3.22 L Hgb 8.7 L Hct 26.5 L MCV 82.4 MCH 27.0 MCHC 32.7 RDW 16.1 H Plt Count 289 Neut % (Auto) 70.6 Lymph % (Auto) 15.4 L [place] % (Auto) 11.2 Eos % (Auto) 2.4 Baso % (Auto) 0.4 Neut # (Auto) 5200 Lymph # (Auto) 1100 [place] # (Auto) 800 Eos # (Auto) 200 Baso # (Auto) 0 Sodium 137 Potassium 3.4 Chloride 110 H Carbon Dioxide 14 L BUN 65 H Creatinine 4.07 H Estimated GFR 10 L BUN/Creatinine Ratio 16.0 Glucose 92 Calcium 8.4 Total Bilirubin 0.2 AST 11 L ALT 8 Alkaline Phosphatase 95 Total Protein 6.7 Albumin 2.9 L Globulin 3.8 Albumin/Globulin Ratio 0.8 L Lipase Urine Color Urine Appearance Urine pH Ur Specific [place] Urine Protein Urine Glucose (UA) Urine Ketones Urine Occult Blood Urine Nitrate Urine Bilirubin Urine Urobilinogen Ur Leukocyte Esterase Urine RBC Urine WBC Ur Squamous Epith Cells Urine Bacteria Ur Culture Indicated? Vol Urine Centrifuged [facility] Medical History Hx of fracture of femur Hx of deep venous thrombosis Hx of primary hypertension Hx of gastroesophageal reflux (GERD) History of COPD Hx of renal cell cancer Gout Chronic UTI Arthritis Pulmonary embolism Unspecified essential hypertension Colitis with rectal bleeding Peristomal skin complication Lumbar hernia Retained urethral stent S/p nephrectomy Anticoagulated Chronic renal disease, stage 3, moderately decreased glomerular filtration rate (GFR) between 30-59 mL/min/1.73 square meter Colostomy in place Leg swelling Easy bruisability Rectal carcinoma Port-A-Cath in place Neuropathy Incontinence Allergic reaction 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 Abnormal mammogram of right breast Parastomal hernia 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 Rectal cancer Surgical History History of ureter stent H/O nephrostomy H/O lithotripsy History of low anterior resection of rectum Family History Mother Hypertension Cancer Son Hypertension Grandfather Heart disease Cancer Granddaughter Eczema Social History marital status: number of children: 1 household members: children lives independently: Yes occupational status: previously employed and other Smoking Status: Current some day smoker Tobacco: How many years used: 60 alcohol intake: current substance use type: does not use caffeine: Yes Type(s) of exercise: none Assessment & Plan Assessment & Plan narrative: #acute kidney failure #single L kidney #nephrostomy status Continue hydration with 100mL hr IVF with po - spoke with her dry cleaner continue to track Cr for now - vss, K looks good - monitor #colostomy status #watery diarrhea checking norovirus output has come down but pt says is still more than usual #UTI continue rocephin 2g IV qd #COPD breathing stable continue #GERD stable continue home meds #anxiety/sleep/chronic pain stable continue home meds Dispo: continue to hydrate and track Cr status PCP: Lenore Diet: low salt Time-Based Coding :: [TOTAL MINUTES] spent with patient and on the chart (including review of chart, obtaining history, exam, reviewing outside data, placing orders, documenting exam and treatment plan, and counseling patient) on [DATE]. Quality VTE Deep Vein Thrombosis/Pulmonary Embolism Present on Admission: No
[2024-05-27 12:10] LABS: Adenovirus F 40/41 Not Detected (Not Detect); Astrovirus Not Detected (Not Detect); Campylobacter Not Detected (Not Detect); Clostridium difficile toxin AB Not Detected (Not Detect); Cryptosporidium Not Detected (Not Detect); Cyclospora cayetanensis Not Detected (Not Detect); Entamoeba histolytica Not Detected (Not Detect); Enteroaggregative E.coli Not Detected (Not Detect); Enteropathogenic E.coli Detected (Not Detect); Enterotoxigenic E.coli It/st Not Detected (Not Detect); Giardia lamblia Not Detected (Not Detect); Norovirus GI/GII Not Detected (Not Detect); Plesiomonsa shigelloides Not Detected (Not Detect); Rotavirus A Not Detected (Not Detect); Salmonella Not Detected (Not Detect); Sapovirus Not Detected (Not Detect); Shiga-like toxin-prod E.coli Not Detected (Not Detect); Shigella/Enteroinvasive E.coli Not Detected (Not Detect); Vibrio Not Detected (Not Detect); Vibrio cholerae Not Detected (Not Detect); Yersinia enterocolitica Not Detected (Not Detect)
--- NOTE | 2024-05-27 14:36 | CM.DANOTE ---
DCP Assessment note pt is a 84yo F with single kidney and colosctomy bag at baseline admitted with UTI/drop in creatine/dehydration. PCP Lenore, admitted by Dr. Hernandez Payer Medicare and [facility] [place] ASSOCIATE DOCTOR reviewed EMR. Per David note, no transfer indicated after speaking with log handling equipment operator [facility] Dr. Ramírez, reports normal vitals and to continue hydration/to monitor labs/colostomy output. ASSOCIATE DOCTOR entered room and introduced self and role. Pt pleasant and chatty. reports lives in [place], son Deejay is her emergency contact and he stays in the [facility] suite on the property. uses walker at baseline, reports driving short distances but son helps her with transport as needed. relatively indep in home but son helps with care at home. pt reports she's feeling weaker than normal now but better than when she came in. reports current with [employer] and preference to continue to work with them. reports son can take her home, denies other CM/DCP needs at this time. ASSOCIATE DOCTOR confirmed with benton at [employer] pt active on their services, can take pt back. ASSOCIATE DOCTOR emailed [facility] completed f2f, HH order needed. No PT/OT orders at this time. CM team will continue to follow if needed for dc for additional safety clearance for home/additional DCP recs. P: medical POC pending. anticipate return home with [employer] resumption and son support, son to transport. CM team will continue to follow as needed THERESE Benoit Discharge Planning/Care Management CM Discharge Assessment Start: 05/27/24 14:34 Freq: Status: Active Protocol: Document 05/27/24 14:34 (Rec: 05/27/24 14:36 [id number]) Discharge Planning Assessment Assigned Timber Appraiser THERESE Spear DPOA/Assigned Designee Name balaji Villalba Contact Information [phone] Advance Directives? Yes: Yes;POLST Advance Directives on File Yes History Provided By Patient,Medical Record Prior Living Arrangements House Household Members children Type of transporation used prior to Drives own vehicle admit Comment drives short distances and son helps w/ transport often Independent with ADL's Yes Is patient alert and oriented? Yes Needs Assistance With Home Chores / Shopping DME Already Rented / Owned FWW / Walker Patient/Family Preference Home with Home Health Comment Patient is an 82 yo female, PMH includes rectal cancer ( stable) with hx of surgery and colostomy in place, hx of PE on chronic blood thinners [place] per patient, son lives on same property. Discharge Plan Home with Home Health Transportation Arrangement son in POV Referrals Initiated Home Health Additional Comment [facility] resump[facility] If patient plan is home with home health Yes : Has signed face to face form been completed? SNF/HH Preference [facility] resumption Whiteboard Updated in Patient Room with Yes name and ext. # of Timber Appraiser Review Status In Process Please Provide Date Initial DC 05/27/24 Assessment Was Performed Next Review Type Continued Stay Review
[2024-05-27 16:00] VITALS: BP 130/50; PULSE 63; RESP 15; TEMP 35.7; O2SAT 98
[2024-05-27] MEDS: cefTRIAXone 2,000 MG in SODIUM CHLORIDE 0.9% 100 ML 200 MG IV (16:46)
[2024-05-27] MEDS: AMLODIPINE 5 MG TABLET PO (16:46)
[2024-05-27 19:45] VITALS: BP 131/50; PULSE 67; RESP 18; TEMP 36; O2SAT 99
[2024-05-27] MEDS: TRAZODONE 50 MG TABLET PO (21:39)
[2024-05-28 04:52] VITALS: BP 131/61; PULSE 68; RESP 18; TEMP 36.2; O2SAT 99
[2024-05-28] MEDS: PANTOPRAZOLE DR 20 MG TABLET PO (05:46)
[2024-05-28 07:08] LABS: Add Manual Diff / Slide Review NO; Basophils Absolute Auto 0 /uL (0-100); Basophils Percent Auto 0.6 % (0-2); Eosinophils Absolute Auto 400 /uL (0-450); Eosinophils Percent Auto 8.4 % (2-4); Hematocrit 27.1 % (36-46); Hemoglobin 8.6 g/dL (12.0-16.0); Lymphocytes Absolute Auto 1100 /uL (1100-4500); Lymphocytes Percent Auto 20.5 % (25-40); Mean Corpuscular HGB Conc 31.7 % (30-36); Mean Corpuscular Hemoglobin 26.1 PG (26-34); Mean Corpuscular Volume 82.2 fL (80-100); Monocytes Absolute Auto 600 /uL (0-900); Monocytes Percent Auto 10.9 % (3-14); Neutrophils Absolute Auto 3200 /uL (1500-7000); Neutrophils Percent Auto 59.6 % (50-75); Platelet Count 279 X10^3/uL (150-400); Red Blood Cell Count 3.29 X10^6/uL (4.0-5.2); Red Cell Distribution Width 16.6 % (11.6-14.8); White Blood Cell Count 5.4 X10^3/uL (4.5-11.0)
[2024-05-28 07:22] LABS: Alanine Aminotransferase 8 IU/L (<35); Albumin 2.8 g/dL (3.5-5.0); Albumin Globulin Ratio 0.8 (1.0-2.8); Alkaline Phosphatase 89 U/L (38-126); Aspartate Aminotransferase 11 IU/L (14-36); BUN Creatinine Ratio 15.5 (6-22); Blood Urea Nitrogen 45 mg/dL (7-17); Calcium 8.6 mg/dL (8.4-10.2); Carbon Dioxide 17 mmol/L (22-32); Chloride 113 mmol/L (98-107); Estimated Glomerular Filt Rate 16 mL/min (>60); Globulin 3.6 g/dL (1.7-4.1); Glucose 95 mg/dL (80-110); HEMOLYSIS < 15 (0-50); Potassium 3.3 mmol/L (3.4-5.1); Sodium 141 mmol/L (137-145); Total Protein 6.4 g/dL (6.3-8.2)
[2024-05-28 07:29] LABS: Bilirubin Total < 0.1 mg/dL (0.2-1.3)
[2024-05-28] MEDS: SODIUM CHLORIDE 0.9% 1,000 ML 150 ML IV (08:24)
[2024-05-28] MEDS: METOPROLOL IR 25 MG TABLET 12.5 MG PO ×2 (08:24→20:50)
[2024-05-28] MEDS: APIXABAN 5 MG TABLET 2.5 MG PO ×2 (08:24→20:50)
[2024-05-28 09:00] VITALS: BP 164/59; PULSE 66; RESP 17; TEMP 36.2; O2SAT 97
[2024-05-28] MEDS: SODIUM CHLORIDE 0.45% 1,000 ML 100 ML IV (11:30)
[2024-05-28] MEDS: ONDANSETRON 4 MG/2 ML INJ IV (11:41)
--- NOTE | 2024-05-28 11:47 | PM.PN.1 ---
Subjective Subjective Date Patient Seen: 05/28/24 Time Patient Seen: 11:48 Interval history: Very pleasant 84-year-old female who [facility]. Grover and Dr. Carlson. Patient was admitted on May 26 with diarrheal illness and acute exacerbation of chronic kidney disease. Patient has a history of renal cell carcinoma and has 1 kidney that has a nephrostomy tube in place. Patient also has a history of colon cancer and has a colostomy. Patient had several days of continuous diarrheal stool. She was found to have a UTI was admitted for acute on chronic renal failure and acute dehydration. Patient is on IV ceftriaxone and IV fluids in his doing better. Patient states she is still nauseous and has to force herself to eat. She has not had a bowel movement today or yesterday. She is having good urine output with 2500 cc out yesterday. She states she still feels very weak but is feeling much better. Patient denies any chest pain or lightheadedness or dizziness. Denies any respiratory complaints. Twelve point review of systems is otherwise negative. Exam Vital Signs (past 8 hours): - 05/28/24 04:52 05/28/24 09:00 Temperature 97.2 F L 97.2 F L Pulse Rate 68 66 Respiratory Rate 18 17 Blood Pressure 131/61 164/59 H Pulse Oximetry 99 97 Oxygen Flow Rate 0 0 Fraction of Inspired Oxygen 21 SaO2/FiO2 Ratio 476 Oxygen Delivery Method Room Air Oxygen Flow Rate 0 Narrative Exam Narrative: Patient is alert and oriented x3 is an excellent historian. Vital signs are stable. Patient is afebrile and normal vital signs HEENT shows mucous membranes slightly dry but no mucosal lesions neck: Supple without adenopathy or thyromegaly chest: Clear to auscultation without wheezes rhonchi or crackles cor: Regular rate and rhythm with distant S1-S2 extremities: No edema, pulses intact, skin diffusely dry no rashes neurologic exam nonfocal Objective Labs 05/28/24 06:20 05/28/24 06:20 Labs: Laboratory Results - last 24 hr 05/27/24 05/28/24 10:20 06:20 WBC 5.4 RBC 3.29 L Hgb 8.6 L Hct 27.1 L MCV 82.2 MCH 26.1 MCHC 31.7 RDW 16.6 H Plt Count 279 Neut % (Auto) 59.6 Lymph % (Auto) 20.5 L [place] % (Auto) 10.9 Eos % (Auto) 8.4 H Baso % (Auto) 0.6 Neut # (Auto) 3200 Lymph # (Auto) 1100 [place] # (Auto) 600 Eos # (Auto) 400 Baso # (Auto) 0 Sodium 141 Potassium 3.3 L Chloride 113 H Carbon Dioxide 17 L BUN 45 H Creatinine 2.91 H Estimated GFR 16 L BUN/Creatinine Ratio 15.5 Glucose 95 Calcium 8.6 Total Bilirubin < 0.1 L AST 11 L ALT 8 Alkaline Phosphatase 89 Total Protein 6.4 Albumin 2.8 L Globulin 3.6 Albumin/Globulin Ratio 0.8 L Stl C. cayetanensis PCR Not detected Stool Rotavirus (PCR) Not detected Stool Adenovirus (PCR) Not detected Stool Astrovirus (PCR) Not detected Stool Cryptosporidium PCR Not detected Stl E.coli Shiga Tox PCR Not detected St Sh/Enteroin Ecoli PCR Not detected Stl Enterotoxigenic E PCR Not detected Stool EPEC (PCR) Detected Stl E. histolytica PCR Not detected Stool Giardia Lamblia PCR Not detected Stool Sapovirus (PCR) Not detected Stl P. shigelloides PCR Not detected St Y.enterocolitica PCR Not detected Stool Vibrio (PCR) Not detected Stl Vibrio cholerae PCR Not detected Stl Enteroaggr Ecoli PCR Not detected Stl Norovirus GI/GII PCR Not detected Campylobacter (PCR) Not detected C. difficile Tox (PCR) Not detected Salmonella (PCR) Not detected PFSH Medical History Hx of fracture of femur Hx of deep venous thrombosis Hx of primary hypertension Hx of gastroesophageal reflux (GERD) History of COPD Hx of renal cell cancer Gout Chronic UTI Arthritis Pulmonary embolism Unspecified essential hypertension Colitis with rectal bleeding Peristomal skin complication Lumbar hernia Retained urethral stent S/p nephrectomy Anticoagulated Chronic renal disease, stage 3, moderately decreased glomerular filtration rate (GFR) between 30-59 mL/min/1.73 square meter Colostomy in place Leg swelling Easy bruisability Rectal carcinoma Port-A-Cath in place Neuropathy Incontinence Allergic reaction 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 Abnormal mammogram of right breast Parastomal hernia 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 Rectal cancer Surgical History History of ureter stent H/O nephrostomy H/O lithotripsy History of low anterior resection of rectum Family History Mother Hypertension Cancer Son Hypertension Grandfather Heart disease Cancer Granddaughter Eczema Social History marital status: number of children: 1 household members: children lives independently: Yes occupational status: previously employed and other Smoking Status: Current some day smoker Tobacco: How many years used: 60 alcohol intake: current substance use type: does not use caffeine: Yes Type(s) of exercise: none Assessment & Plan Assessment & Plan narrative: 84-year-old female with history of renal cell carcinoma and 1 kidney and nephrostomy tube in that kidney and distal colon cancer with colostomy bag admitted for diarrheal illness with acute on chronic renal failure and dehydration. Improving with IV hydration and IV antibiotics assessment 1. UTI improving with ceftriaxone. Culture pending plan: Continue with the same ceftriaxone assessment 2. Acute on chronic renal failure improving. Moving toward baseline. Decreased from creatinine of 4 to 2.9 today. GFR improved from 8-16 today. Reviewed conversation with patient's geospatial technician Dr. Martel from [facility]. Urine output is excellent. Kidney function is improving. Discussion with patient today states that absolutely 1 thing she would never want to have done as dialysis. We will continue with current IV fluids but will change to half-normal saline due to hyperchloremia. Will recheck tomorrow assessment 3. Hypokalemia, mild plan: Will replace very gently given renal function and will reassess tomorrow assessment 4. Hyperchloremia likely due to normal saline hydration plan: Will switch to half-normal saline and recheck tomorrow assessment 5. Diarrheal illness with suspicion of norovirus but reviewed stool studies which show enteropathic E coli. At this point patient is improved she has having no more diarrhea. She has no fever no leukocytosis and clinically is improving so we will continue with supportive care. If her condition worsens we will treat with antibiotic directed to treatment of intrahepatic E coli which would be azithromycin, Septra or Cipro. Will give Zofran for nausea assessment 6. Anemia normocytic, chronic suspect due to chronic medical illness and worsened with IV hydration. No evidence of acute blood loss plan: Will follow and continue workup as outpatient assessment 7. History of PE AFib on chronic anticoagulant plan: Continue with the same Eliquis assessment 8. Hypertension. Well-controlled plan: Continue with same outpatient medications code status is full code but patient would not want to have dialysis disposition plan home when stable likely Thursday. Patient still needs inpatient hospitalization due to above. Patient progressing to baseline but not at baseline 60 minutes spent with patient reviewing chart meeting with patient discussing with nursing and physicianformulating a plan and documentation Time-Based Coding :: [TOTAL MINUTES] spent with patient and on the chart (including review of chart, obtaining history, exam, reviewing outside data, placing orders, documenting exam and treatment plan, and counseling patient) on [DATE]. Quality VTE Deep Vein Thrombosis/Pulmonary Embolism Present on Admission: No
[2024-05-28] MEDS: POTASSIUM CHLORIDE 20 MEQ TAB PO (12:27)
[2024-05-28 16:00] VITALS: BP 159/59; PULSE 66; RESP 17; TEMP 36.2; O2SAT 96
[2024-05-28] MEDS: AMLODIPINE 5 MG TABLET PO (16:13)
[2024-05-28] MEDS: cefTRIAXone 2,000 MG in SODIUM CHLORIDE 0.9% 100 ML 200 MG IV (16:14)
[2024-05-28] MEDS: CEFEPIME 0.5 GM in SODIUM CHLORIDE 0.9% 100 ML IV (17:24)
[2024-05-28 20:00] VITALS: BP 119/54; PULSE 67; RESP 18; TEMP 36.4; O2SAT 97
[2024-05-28] MEDS: TRAZODONE 50 MG TABLET PO (20:50)
[2024-05-28] MEDS: OXYCODONE IR 10 MG TABLET PO (20:50)
[2024-05-28] MEDS: LATANOPROST 0.005% OPHTH 2.5 ML 1 DROPS EYE-BOTH (21:15)
[2024-05-29] VITALS: BP 140/77; PULSE 76; RESP 18; TEMP 37; O2SAT 97
[2024-05-29] MEDS: SODIUM CHLORIDE 0.45% 1,000 ML 100 ML IV ×3 (02:26→22:10)
[2024-05-29] MEDS: OXYCODONE IR 10 MG TABLET PO (02:28)
[2024-05-29] MEDS: PANTOPRAZOLE DR 20 MG TABLET PO (05:22)
[2024-05-29 05:54] LABS: Add Manual Diff / Slide Review NO; Basophils Absolute Auto 0 /uL (0-100); Eosinophils Absolute Auto 500 /uL (0-450); Eosinophils Percent Auto 9.7 % (2-4); Hemoglobin 8.7 g/dL (12.0-16.0); Lymphocytes Absolute Auto 1000 /uL (1100-4500); Lymphocytes Percent Auto 20.4 % (25-40); Mean Corpuscular HGB Conc 32.3 % (30-36); Mean Corpuscular Hemoglobin 26.4 PG (26-34); Mean Corpuscular Volume 81.5 fL (80-100); Monocytes Absolute Auto 400 /uL (0-900); Neutrophils Absolute Auto 2900 /uL (1500-7000); Neutrophils Percent Auto 60.9 % (50-75); Platelet Count 281 X10^3/uL (150-400); Red Blood Cell Count 3.32 X10^6/uL (4.0-5.2); Red Cell Distribution Width 16.6 % (11.6-14.8); White Blood Cell Count 4.8 X10^3/uL (4.5-11.0)
[2024-05-29 06:04] LABS: Alanine Aminotransferase 10 IU/L (<35); Albumin 2.7 g/dL (3.5-5.0); Albumin Globulin Ratio 0.7 (1.0-2.8); Alkaline Phosphatase 101 U/L (38-126); Aspartate Aminotransferase 13 IU/L (14-36); Bilirubin Total 0.1 mg/dL (0.2-1.3); Blood Urea Nitrogen 34 mg/dL (7-17); Calcium 8.8 mg/dL (8.4-10.2); Carbon Dioxide 13 mmol/L (22-32); Chloride 116 mmol/L (98-107); Estimated Glomerular Filt Rate 21 mL/min (>60); Globulin 3.7 g/dL (1.7-4.1); Glucose 95 mg/dL (80-110); HEMOLYSIS < 15 (0-50); Potassium 4.1 mmol/L (3.4-5.1); Sodium 140 mmol/L (137-145); Total Protein 6.4 g/dL (6.3-8.2)
[2024-05-29] MEDS: ONDANSETRON 4 MG/2 ML INJ IV (07:49)
[2024-05-29 08:00] VITALS: BP 158/55; PULSE 70; RESP 18; O2SAT 98
[2024-05-29] MEDS: APIXABAN 5 MG TABLET 2.5 MG PO ×2 (09:32→20:31)
[2024-05-29] MEDS: METOPROLOL IR 25 MG TABLET 12.5 MG PO ×2 (09:33→20:31)
--- NOTE | 2024-05-29 11:21 | PM.PN.1 ---
Subjective Subjective Date Patient Seen: 05/29/24 Time Patient Seen: 11:21 Interval history: Patient had unremarkable day yesterday. She got up in the chair. She was able to eat some yesterday and really was feeling quite well. This morning she is now feeling nauseous and has not been able to eat in his having cramping abdominal pain. She has not had a stool since she came in. She would profuse continuous watery stools prior to coming in. She has not had a fever. She has not any shortness a breath or chest pain. Zofran is helpful but just temporarily. Twelve point review of systems is otherwise negative Exam Vital Signs (past 8 hours): - 05/29/24 08:00 Pulse Rate 70 Respiratory Rate 18 Blood Pressure 158/55 H Pulse Oximetry 98 Oxygen Flow Rate 0 Fraction of Inspired Oxygen 21 SaO2/FiO2 Ratio 476 Oxygen Delivery Method Room Air Oxygen Flow Rate 0 Narrative Exam Narrative: Afebrile vital signs are stable Patient is nauseous with belching but no emesis HEENT shows mucous membranes moist and pink without any mucosal lesions Neck: Supple Chest: Clear to auscultation without wheezes rhonchi or crackles Cor regular rate and rhythm with distant S1-S2 Abdomen: Positive bowel sounds, soft, nontender, nondistended. Patient with a large abdominal wall hernia this is unchanged. Colostomy bag is intact and there is some green brown stool present. Bowel sounds are normal x4. With deep palpation patient does have tenderness but she states if anybody pushes on her abdomen it is painful regardless of whether she is ill or not. No acute surgical findings Extremity: No edema, pulses intact. Skin turgor improved. Objective Labs 05/29/24 05:20 05/29/24 05:20 Labs: Laboratory Results - last 24 hr 05/29/24 05:20 WBC 4.8 RBC 3.32 L Hgb 8.7 L Hct 27.0 L MCV 81.5 MCH 26.4 MCHC 32.3 RDW 16.6 H Plt Count 281 Neut % (Auto) 60.9 Lymph % (Auto) 20.4 L [place] % (Auto) 8.0 Eos % (Auto) 9.7 H Baso % (Auto) 1.0 Neut # (Auto) 2900 Lymph # (Auto) 1000 L [place] # (Auto) 400 Eos # (Auto) 500 H Baso # (Auto) 0 Sodium 140 Potassium 4.1 Chloride 116 H Carbon Dioxide 13 L BUN 34 H Creatinine 2.27 H Estimated GFR 21 L BUN/Creatinine Ratio 15.0 Glucose 95 Calcium 8.8 Total Bilirubin 0.1 L AST 13 L ALT 10 Alkaline Phosphatase 101 Total Protein 6.4 Albumin 2.7 L Globulin 3.7 Albumin/Globulin Ratio 0.7 L PFSH Medical History Hx of fracture of femur Hx of deep venous thrombosis Hx of primary hypertension Hx of gastroesophageal reflux (GERD) History of COPD Hx of renal cell cancer Gout Chronic UTI Arthritis Pulmonary embolism Unspecified essential hypertension Colitis with rectal bleeding Peristomal skin complication Lumbar hernia Retained urethral stent S/p nephrectomy Anticoagulated Chronic renal disease, stage 3, moderately decreased glomerular filtration rate (GFR) between 30-59 mL/min/1.73 square meter [address]ostomy in place Leg swelling Easy bruisability Rectal carcinoma Port-A-Cath in place Neuropathy Incontinence Allergic reaction 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 Abnormal mammogram of right breast Parastomal hernia 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 Rectal cancer Surgical History History of ureter stent H/O nephrostomy H/O lithotripsy History of low anterior resection of rectum Family History Mother Hypertension Cancer Son Hypertension Grandfather Heart disease Cancer Granddaughter Eczema Social History marital status: number of children: 1 household members: children lives independently: Yes occupational status: previously employed and other Smoking Status: Current some day smoker Tobacco: How many years used: 60 alcohol intake: current substance use type: does not use caffeine: Yes Type(s) of exercise: none Assessment & Plan Assessment & Plan narrative: 84-year-old female with history of renal cell carcinoma and 1 kidney and nephrostomy tube in that kidney and distal colon cancer with colostomy bag admitted for diarrheal illness with acute on chronic renal failure and dehydration. Improving with IV hydration and IV antibiotics assessment 1. UTI improving with ceftriaxone. Culture showed Pseudomonas. Patient was switched to cefepime yesterday. Per pharmacy dosing. I do not think this is contributing to her abdominal pain but certainly must consider this. plan: Continue with the same cefepime. assessment 2. Acute on chronic renal failure improving. Moving toward baseline. Decreased from creatinine of 2.9-2.1 today. GFR improved from 16-21 today. Reviewed conversation with patient's attending urologist Dr. Martel from [facility]. Urine output is excellent. Kidney function is improving. Continue with same half-normal saline IV fluid. Recheck labs in a.m.. assessment 3. Hypokalemia, resolved with 1 dose of potassium 20 mEq yesterday. No further today. plan: No further supplement today. Will recheck tomorrow. assessment 4. Hyperchloremia resolved with changing IV fluids plan: Continue with half-normal saline assessment 5. Diarrheal illness with suspicion of norovirus but reviewed stool studies which show enteropathic E coli. At this point patient is improved she has having no more diarrhea. She has no fever no leukocytosis and clinically is improving so we will continue with supportive care. If her condition worsens we will treat with antibiotic directed to treatment of intrahepatic E coli which would be azithromycin, Septra or Cipro. Will give Zofran for nausea. Unclear if symptoms today are related to this or if it is just her bowels becoming active again and need for bowel movement which I think is the case. assessment 6. Anemia normocytic, chronic suspect due to chronic medical illness and worsened with IV hydration. No evidence of acute blood loss plan: Will follow and continue workup as outpatient assessment 7. History of PE AFib on chronic anticoagulant plan: Continue with the same Eliquis assessment 8. Hypertension. Well-controlled plan: Continue with same outpatient medications Assessment 9. Crampy abdominal pain. Suspect this is just related to bowels becoming active again. She is starting to produce some stool so at this point will not give her anything to expedite this but will continue to follow closely. Considered change in antibiotics contributing but I think less likely. Could be related to enteropathic E coli but we will continue with current treatment. Will add PPI code status is full code but patient would not want to have dialysis disposition plan home when stable likely Thursday. Patient still needs inpatient hospitalization due to above. Patient progressing to baseline but not at baseline 59 minutes spent with patient reviewing chart meeting with patient discussing with nursing and pharmacy, formulating a plan and documentation Time-Based Coding :: [TOTAL MINUTES] spent with patient and on the chart (including review of chart, obtaining history, exam, reviewing outside data, placing orders, documenting exam and treatment plan, and counseling patient) on [DATE]. Quality VTE Deep Vein Thrombosis/Pulmonary Embolism Present on Admission: No
--- NOTE | 2024-05-29 12:16 | CM.DPNOTE ---
DCP note TELECOM BILLING ANALYST reviewed EMR per multidisciplinary team in morning rounds, labs continue to improve. Per Dr. Ruiz note, UTI/renal failure continuing to improve. was OOB with nursing. anticipate potential dc tomorrow. No PT/OT orders at this time. CM team will continue to follow if needed for dc for additional safety clearance for home/additional DCP recs. P: anticipate return home with [facility] RN resumption and son support, son to transport. CM team will continue to follow as needed THERESE Benoit
[2024-05-29] MEDS: NYSTATIN CREAM 30 GM 1 APPLIC TOP (15:22)
[2024-05-29 16:00] VITALS: BP 135/51; PULSE 70; RESP 17; TEMP 36.6; O2SAT 99
[2024-05-29] MEDS: CEFEPIME 0.5 GM in SODIUM CHLORIDE 0.9% 100 ML IV (16:42)
[2024-05-29] MEDS: AMLODIPINE 5 MG TABLET PO (16:42)
[2024-05-29 19:00] VITALS: BP 129/48; PULSE 65; RESP 18; TEMP 36.5; O2SAT 98
[2024-05-29] MEDS: LATANOPROST 0.005% OPHTH 2.5 ML 1 DROPS EYE-BOTH (20:31)
[2024-05-30 03:00] VITALS: BP 125/46; PULSE 66; RESP 18; TEMP 36.3; O2SAT 95
[2024-05-30] MEDS: PANTOPRAZOLE DR 20 MG TABLET PO (06:18)
[2024-05-30 06:20] LABS: Add Manual Diff / Slide Review NO; Basophils Absolute Auto 0 /uL (0-100); Basophils Percent Auto 0.6 % (0-2); Eosinophils Absolute Auto 300 /uL (0-450); Eosinophils Percent Auto 5.9 % (2-4); Hematocrit 25.8 % (36-46); Hemoglobin 8.4 g/dL (12.0-16.0); Lymphocytes Absolute Auto 1100 /uL (1100-4500); Lymphocytes Percent Auto 21.6 % (25-40); Mean Corpuscular HGB Conc 32.5 % (30-36); Mean Corpuscular Hemoglobin 26.7 PG (26-34); Mean Corpuscular Volume 82.1 fL (80-100); Monocytes Absolute Auto 400 /uL (0-900); Monocytes Percent Auto 8.3 % (3-14); Neutrophils Absolute Auto 3300 /uL (1500-7000); Neutrophils Percent Auto 63.6 % (50-75); Platelet Count 256 X10^3/uL (150-400); Red Blood Cell Count 3.14 X10^6/uL (4.0-5.2); Red Cell Distribution Width 16.5 % (11.6-14.8); White Blood Cell Count 5.1 X10^3/uL (4.5-11.0)
[2024-05-30 06:28] LABS: BUN Creatinine Ratio 14.4 (6-22); Blood Urea Nitrogen 30 mg/dL (7-17); Calcium 8.7 mg/dL (8.4-10.2); Carbon Dioxide 13 mmol/L (22-32); Chloride 115 mmol/L (98-107); Estimated Glomerular Filt Rate 23 mL/min (>60); Glucose 85 mg/dL (80-110); HEMOLYSIS < 15 (0-50); Potassium 4.1 mmol/L (3.4-5.1); Sodium 136 mmol/L (137-145)
[2024-05-30 08:11] VITALS: BP 132/43; PULSE 64; RESP 16; TEMP 36.8; O2SAT 97
--- NOTE | 2024-05-30 08:39 | PM.PN.1 ---
Subjective Subjective Date Patient Seen: 05/30/24 Time Patient Seen: 08:39 Exam Vital Signs (past 8 hours): - 05/30/24 03:00 05/30/24 08:11 Temperature 97.3 F L 98.3 F Pulse Rate 66 64 Respiratory Rate 18 16 Blood Pressure 125/46 L 132/43 L Pulse Oximetry 95 97 Oxygen Flow Rate 0 Fraction of Inspired Oxygen 21 SaO2/FiO2 Ratio 476 Oxygen Delivery Method Room Air Oxygen Flow Rate 0 Objective Labs 05/30/24 05:57 05/30/24 05:57 Labs: Laboratory Results - last 24 hr 05/30/24 05:57 WBC 5.1 RBC 3.14 L Hgb 8.4 L Hct 25.8 L MCV 82.1 MCH 26.7 MCHC 32.5 RDW 16.5 H Plt Count 256 Neut % (Auto) 63.6 Lymph % (Auto) 21.6 L [place] % (Auto) 8.3 Eos % (Auto) 5.9 H Baso % (Auto) 0.6 Neut # (Auto) 3300 Lymph # (Auto) 1100 Smith # (Auto) 400 Eos # (Auto) 300 Baso # (Auto) 0 Sodium 136 L Potassium 4.1 Chloride 115 H Carbon Dioxide 13 L BUN 30 H Creatinine 2.09 H Estimated GFR 23 L BUN/Creatinine Ratio 14.4 Glucose 85 Calcium 8.7 PFSH Medical History Hx of fracture of femur Hx of deep venous thrombosis Hx of primary hypertension Hx of gastroesophageal reflux (GERD) History of COPD Hx of renal cell cancer Gout Chronic UTI Arthritis Pulmonary embolism Unspecified essential hypertension Colitis with rectal bleeding Peristomal skin complication Lumbar hernia Retained urethral stent S/p nephrectomy Anticoagulated Chronic renal disease, stage 3, moderately decreased glomerular filtration rate (GFR) between 30-59 mL/min/1.73 square meter [address]ostomy in place Leg swelling Easy bruisability Rectal carcinoma Port-A-Cath in place Neuropathy Incontinence Allergic reaction 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 Abnormal mammogram of right breast Parastomal hernia 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 Rectal cancer Surgical History History of ureter stent H/O nephrostomy H/O lithotripsy History of low anterior resection of rectum Family History Mother Hypertension Cancer Son Hypertension Grandfather Heart disease Cancer Granddaughter Eczema Social History marital status: number of children: 1 household members: children lives independently: Yes occupational status: previously employed and other Smoking Status: Current some day smoker Tobacco: How many years used: 60 alcohol intake: current substance use type: does not use caffeine: Yes Type(s) of exercise: none Assessment & Plan Time-Based Coding :: [TOTAL MINUTES] spent with patient and on the chart (including review of chart, obtaining history, exam, reviewing outside data, placing orders, documenting exam and treatment plan, and counseling patient) on [DATE]. Quality VTE Deep Vein Thrombosis/Pulmonary Embolism Present on Admission: No
--- NOTE | 2024-05-30 08:44 | P.PN_ITS ---
Subjective Subjective Date Patient Seen: 05/30/24 Time Patient Seen: 08:45 Interval history: Patient seen in follow-up abdominal pain, diarrhea, dehydration, renal failure. Patient continues with some crampy abdominal pain. She has had no nausea or vomiting. No appetite. Starting to have a little more loose stool. No blood. No other change. No fevers no chills Exam Vital Signs (past 8 hours): - 05/30/24 03:00 05/30/24 08:11 Temperature 97.3 F L 98.3 F Pulse Rate 66 64 Respiratory Rate 18 16 Blood Pressure 125/46 L 132/43 L Pulse Oximetry 95 97 Oxygen Flow Rate 0 Fraction of Inspired Oxygen 21 SaO2/FiO2 Ratio 476 Oxygen Delivery Method Room Air Oxygen Flow Rate 0 Narrative Exam Narrative: Alert female lying in bed in no acute distress Lungs are clear heart is regular rate and rhythm abdomen is soft positive bowel sounds mild tenderness no rebound guarding no masses unchanged hernia Objective Labs 05/30/24 05:57 05/30/24 05:57 Labs: Laboratory Results - last 24 hr 05/30/24 05:57 WBC 5.1 RBC 3.14 L Hgb 8.4 L Hct 25.8 L MCV 82.1 MCH 26.7 MCHC 32.5 RDW 16.5 H Plt Count 256 Neut % (Auto) 63.6 Lymph % (Auto) 21.6 L [place] % (Auto) 8.3 Eos % (Auto) 5.9 H Baso % (Auto) 0.6 Neut # (Auto) 3300 Lymph # (Auto) 1100 [place] # (Auto) 400 Eos # (Auto) 300 Baso # (Auto) 0 Sodium 136 L Potassium 4.1 Chloride 115 H Carbon Dioxide 13 L BUN 30 H Creatinine 2.09 H Estimated GFR 23 L BUN/Creatinine Ratio 14.4 Glucose 85 Calcium 8.7 PFSH Medical History Hx of fracture of femur Hx of deep venous thrombosis Hx of primary hypertension Hx of gastroesophageal reflux (GERD) History of COPD Hx of renal cell cancer Gout Chronic UTI Arthritis Pulmonary embolism Unspecified essential hypertension Colitis with rectal bleeding Peristomal skin complication Lumbar hernia Retained urethral stent S/p nephrectomy Anticoagulated Chronic renal disease, stage 3, moderately decreased glomerular filtration rate (GFR) between 30-59 mL/min/1.73 square meter Colostomy in place Leg swelling Easy bruisability Rectal carcinoma Port-A-Cath in place Neuropathy Incontinence Allergic reaction 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 Abnormal mammogram of right breast Parastomal hernia 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 Rectal cancer Surgical History History of ureter stent H/O nephrostomy H/O lithotripsy History of low anterior resection of rectum Family History Mother Hypertension Cancer Son Hypertension Grandfather Heart disease Cancer Granddaughter Eczema Social History marital status: number of children: 1 household members: children lives independently: Yes occupational status: previously employed and other Smoking Status: Current some day smoker Tobacco: How many years used: 60 alcohol intake: current substance use type: does not use caffeine: Yes Type(s) of exercise: none Assessment & Plan Assessment & Plan narrative: Iron-deficiency anemia. Patient has had long history of this. Unable to replace orally. Will give IV today. May give 1 more dose on Thursday. Patient will continue to follow. Will discuss with pharmacy best approach. Acute on chronic renal failure slightly improved. Will continue current therapy recheck a.m.. Doing well. Overall I think we are trending in the right direction. Will continue with IV hydration. Hopefully can discontinue tomorrow. Hypo kalemia. Stable. Will continue. UTI switch to see if a MIS for Pseudomonas. Will continue IV therapy for 2 more days then discontinue and hopefully send home. Hypochloremia. Seems to be stable. Will continue to follow Diarrheal illness possible norovirus. May have been secondary to enteropathic E coli. Seems to be stable. Depending on how the next 24 hours goes we may have to add azithromycin Cipro or Septra will see how things go. Continue on Zofran for now. I do not think she is ready to go home History of PE AFib on anticoagulation will continue Hypertension. Controlled. Abdominal pain. Slightly improved. Still no appetite. Will continue hydration and follow hopefully appetite will improve. Code status full DVT prophylaxis on treatment. Disposition. Doing overall well. Some improvement. Goal be to have home by Thursday. She understands. Questions answered. Follow-up a.m. 57 minutes spent with the patient chart review sign out dictation orders Time-Based Coding :: [TOTAL MINUTES] spent with patient and on the chart (including review of chart, obtaining history, exam, reviewing outside data, placing orders, documenting exam and treatment plan, and counseling patient) on [DATE]. Quality VTE Deep Vein Thrombosis/Pulmonary Embolism Present on Admission: No
[2024-05-30] MEDS: SODIUM CHLORIDE 0.45% 1,000 ML 100 ML IV ×2 (08:46→20:38)
[2024-05-30] MEDS: METOPROLOL IR 25 MG TABLET 12.5 MG PO ×2 (09:24→20:44)
[2024-05-30] MEDS: APIXABAN 5 MG TABLET 2.5 MG PO ×2 (09:24→20:43)
[2024-05-30] MEDS: ACETAMINOPHEN 325 MG TABLET 650 MG PO (09:45)
[2024-05-30] MEDS: NYSTATIN POWDER 15GM 1 APPLIC TOP (09:49)
[2024-05-30] MEDS: SODIUM FERRIC GLUCONAT/SUCROSE 125 MG in SODIUM CHLORIDE 0.9% 100 ML 110 MG IV (09:50)
--- NOTE | 2024-05-30 15:03 | CM.DPC ---
DCP Cont: Per MD, pt's labs slowly improving but plan of IV iron infusion today along with ongoing IV abx and fluids and will repeat labs in the AM to determine if pt stable for d/c home. Unclear if pt will need ongoing iron infusions at d/c and if needed pt likely would need to be set up with the [facility]. PT ordered and pending. Pt accepted with [facility] RN and pending PT eval may need added disciplines at discharge. F2F previously started and will need to add PT if needed and send to [facility] at discharge along with d/c summary and orders. Yudy Villalobos, B[employer]ING MACHINE OPERATOR HELPER
[2024-05-30 15:53] VITALS: BP 146/58; PULSE 65; RESP 18; TEMP 35.8; O2SAT 98
[2024-05-30] MEDS: CEFEPIME 0.5 GM in SODIUM CHLORIDE 0.9% 100 ML IV (16:23)
[2024-05-30] MEDS: AMLODIPINE 5 MG TABLET PO (16:23)
[2024-05-30 20:00] VITALS: BP 131/46; PULSE 65; RESP 18; TEMP 35.9; O2SAT 97
[2024-05-30] MEDS: LATANOPROST 0.005% OPHTH 2.5 ML 1 DROPS EYE-BOTH (20:44)
[2024-05-30] MEDS: OXYCODONE IR 10 MG TABLET PO (23:44)
[2024-05-31 03:30] VITALS: BP 122/47; PULSE 66; RESP 18; TEMP 36.3; O2SAT 97
[2024-05-31] MEDS: PANTOPRAZOLE DR 20 MG TABLET PO (05:36)
[2024-05-31] MEDS: OXYCODONE IR 5 MG TABLET PO (05:36)
[2024-05-31 06:19] LABS: Add Manual Diff / Slide Review NO; Basophils Absolute Auto 0 /uL (0-100); Basophils Percent Auto 0.6 % (0-2); Eosinophils Absolute Auto 400 /uL (0-450); Eosinophils Percent Auto 5.7 % (2-4); Hematocrit 25.4 % (36-46); Hemoglobin 8.2 g/dL (12.0-16.0); Lymphocytes Absolute Auto 1200 /uL (1100-4500); Lymphocytes Percent Auto 20.3 % (25-40); Mean Corpuscular HGB Conc 32.4 % (30-36); Mean Corpuscular Hemoglobin 26.5 PG (26-34); Mean Corpuscular Volume 81.7 fL (80-100); Monocytes Absolute Auto 400 /uL (0-900); Monocytes Percent Auto 6.3 % (3-14); Neutrophils Absolute Auto 4100 /uL (1500-7000); Neutrophils Percent Auto 67.1 % (50-75); Platelet Count 264 X10^3/uL (150-400); Red Cell Distribution Width 15.9 % (11.6-14.8); White Blood Cell Count 6.1 X10^3/uL (4.5-11.0)
[2024-05-31 06:29] LABS: Alanine Aminotransferase 9 IU/L (<35); Albumin 2.7 g/dL (3.5-5.0); Albumin Globulin Ratio 0.7 (1.0-2.8); Alkaline Phosphatase 107 U/L (38-126); Aspartate Aminotransferase 10 IU/L (14-36); BUN Creatinine Ratio 14.3 (6-22); Bilirubin Total 0.2 mg/dL (0.2-1.3); Blood Urea Nitrogen 27 mg/dL (7-17); Calcium 8.8 mg/dL (8.4-10.2); Carbon Dioxide 14 mmol/L (22-32); Chloride 115 mmol/L (98-107); Estimated Glomerular Filt Rate 26 mL/min (>60); Globulin 3.8 g/dL (1.7-4.1); Glucose 82 mg/dL (80-110); HEMOLYSIS < 15 (0-50); Potassium 4.2 mmol/L (3.4-5.1); Sodium 138 mmol/L (137-145); Total Protein 6.5 g/dL (6.3-8.2)
[2024-05-31 08:00] VITALS: BP 140/58; PULSE 65; RESP 14; TEMP 35.7; O2SAT 99
--- NOTE | 2024-05-31 08:28 | DI.CT.S_ITS ---
PROCEDURE: CT ABDOMEN PELVIS WO CON INDICATIONS: new right lower quad pain TECHNIQUE: Axial sections were acquired from the lung bases to the pubic symphysis. Coronal and sagittal reformats were performed. For radiation dose reduction, the following was used: automated exposure control, adjustment of mA and/or kV according to patient size. COMPARISON: [facility], CT, CT ABDOMEN PELVIS WO CON, 05/26/2024, 16:13. [facility], CT, CT ABDOMEN PELVIS WO CON, 02/27/2021, 23:28. FINDINGS: Image quality: Diagnostic. Lower Chest: No significant findings. URINARY: Right Kidney: Right kidney is absent. Left Kidney: Percutaneous nephrostomy tube is seen in stable position. Mild fat stranding is seen adjacent to the renal pelvis. Probable cysts again seen in the left kidney with varying densities, not significantly changed. Left Ureter: Left mid ureteral 8 mm calculus appears unchanged. Bladder: Normal wall thickness. No stones. ABDOMEN: Liver: A few small hypoattenuating lesions again seen in the liver, most likely cysts and unchanged. Gallbladder: Mildly distended appearance of the gallbladder without radiopaque gallstones or surrounding inflammatory changes, nonspecific and possibly related to the timing of the most recent meal. Biliary ducts: No biliary dilation. Pancreas: No ductal dilation. Spleen: Size is within normal limits. Adrenal Glands: No adrenal nodules. Stomach and Bowel: Stable presacral soft tissue attenuation. Portion of the stomach and transverse colon are contained within a large antral hernia. Small bowel loops are seen within a lower abdominal ventral hernia. No signs of bowel obstruction. A portion of the hepatic flexure is seen within a right posterolateral abdominal wall hernia. Appendix is within normal limits in size. Peritoneum: No abnormal intraperitoneal fluid. No free air. Ventral Wall: Multiple prominent ventral hernias containing fat and loops of bowel, not significantly changed when compared to the prior exam. Nonspecific subcutaneous soft tissue edema and skin thickening at the lateral aspect of the mid abdomen. Abdominal Nodes: No enlarged retroperitoneal or mesenteric lymph nodes. Vessels: Aorta and inferior vena cava are normal in size. Severe aortic atherosclerotic calcifications. PELVIS: Pelvic Organs: Unremarkable. Pelvic Nodes: Unremarkable. Miscellaneous: No inguinal hernias are seen. Bones: Moderate L5 vertebral body compression fracture appears unchanged. Surgical fixation hardware is seen in the left proximal femur. IMPRESSION: 1. New nonspecific subcutaneous edema and skin thickening at the right lateral abdominal wall. Findings could represent cellulitis, dependent edema, or interval trauma. Recommend correlation with physical exam findings and site of pain. 2. Multiple anterior and lateral abdominal wall hernias containing bowel and mesenteric fat without signs of bowel obstruction. 3. Stable left percutaneous nephrostomy tube. Persistent fat stranding is seen adjacent to the left renal pelvis and proximal ureter. Stable left mid ureteral calculus. 4. Persistent presacral soft tissue attenuation is of uncertain etiology although proctitis or mass are not excluded, not significantly changed when compared to the prior CT. Approved by: Per Page M.D. on 05/31/2024 at 9:45
--- NOTE | 2024-05-31 08:29 | P.PN_ITS ---
Subjective Subjective Date Patient Seen: 05/31/24 Time Patient Seen: 08:30 Interval history: Patient seen in follow-up of multiple issues including iron-deficiency anemia acute on chronic renal failure diarrhea. Patient with increasing right lower quadrant pain today. All night. Had to take a pain pill. No fevers or chills. No nausea or vomiting. Still having just watery stools. Otherwise no change. No fevers no chills. Pain is all in the right lower quadrant no radiation. Ache constant Exam Vital Signs (past 8 hours): - 05/31/24 03:30 05/31/24 07:25 Temperature 97.3 F L Pulse Rate 66 Respiratory Rate 18 Blood Pressure 122/47 L Pulse Oximetry 97 Oxygen Delivery Method Room Air Oxygen Flow Rate 0 Fraction of Inspired Oxygen 21 SaO2/FiO2 Ratio 476 Oxygen Delivery Method Room Air Oxygen Flow Rate 0 Narrative Exam Narrative: Alert female in no acute distress Lungs are clear heart is regular rate and rhythm abdomen is obese right lower quadrant shows moderate tenderness no rebound no masses she does have a large hernia which I can push down into the hernia and there does not seem to be any tenderness at the hernia site. Seems to be slightly superior. There was no redness erythema or masses otherwise Objective Labs 05/31/24 05:15 05/31/24 05:15 Labs: Laboratory Results - last 24 hr 05/31/24 05:15 WBC 6.1 RBC 3.10 L Hgb 8.2 L Hct 25.4 L MCV 81.7 MCH 26.5 MCHC 32.4 RDW 15.9 H Plt Count 264 Neut % (Auto) 67.1 Lymph % (Auto) 20.3 L [place] % (Auto) 6.3 Eos % (Auto) 5.7 H Baso % (Auto) 0.6 Neut # (Auto) 4100 Lymph # (Auto) 1200 [place] # (Auto) 400 Eos # (Auto) 400 Baso # (Auto) 0 Sodium 138 Potassium 4.2 Chloride 115 H Carbon Dioxide 14 L BUN 27 H Creatinine 1.89 H Estimated GFR 26 L BUN/Creatinine Ratio 14.3 Glucose 82 Calcium 8.8 Total Bilirubin 0.2 AST 10 L ALT 9 Alkaline Phosphatase 107 Total Protein 6.5 Albumin 2.7 L Globulin 3.8 Albumin/Globulin Ratio 0.7 L PFSH Medical History Hx of fracture of femur Hx of deep venous thrombosis Hx of primary hypertension Hx of gastroesophageal reflux (GERD) History of COPD Hx of renal cell cancer Gout Chronic UTI Arthritis Pulmonary embolism Unspecified essential hypertension Colitis with rectal bleeding Peristomal skin complication Lumbar hernia Retained urethral stent S/p nephrectomy Anticoagulated Chronic renal disease, stage 3, moderately decreased glomerular filtration rate (GFR) between 30-59 mL/min/1.73 square meter [address]ostomy in place Leg swelling Easy bruisability Rectal carcinoma Port-A-Cath in place Neuropathy Incontinence Allergic reaction 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 Abnormal mammogram of right breast Parastomal hernia 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 Rectal cancer Surgical History History of ureter stent H/O nephrostomy H/O lithotripsy History of low anterior resection of rectum Family History Mother Hypertension Cancer Son Hypertension Grandfather Heart disease Cancer Granddaughter Eczema Social History marital status: number of children: 1 household members: children lives independently: Yes occupational status: previously employed and other Smoking Status: Current some day smoker Tobacco: How many years used: 60 alcohol intake: current substance use type: does not use caffeine: Yes Type(s) of exercise: none Assessment & Plan Assessment & Plan narrative: Abdominal pain. New. Etiology is unclear. Given her history and hernias will need CT scan. Will do today. Will follow up with her after that. Good news is her white count is stable. And she does not have any bleeding. Otherwise will have to see what this represents. Depending on CT scan will address as needed. Certainly does not appear to be an acute surgical issue will have to see I do not think she has incarceration will have to find out. Will come back at noon to re-evaluate. Watery diarrhea. Will check C diff. could be all residual from her probable norovirus. Although it is unclear what exactly she was ill with when she came in with did have a neuropathic he coli. This point I do not think she needs antibiotics. Other than checking for C diff. not eating well and that has probably some to do with it. UTI. On cefepime for Pseudomonas. Tomorrow will be day 5. Anticipate that should be adequate treatment and can go home depending on abdominal pain and findings. Hypokalemia. Stable. Will continue to follow. Hypochloremia. About the same. No changes. Continue IV therapy. History of PE AFib on anticoagulation Hypertension. Well-controlled. Code status. Full code. But will discuss with the patient later today. DVT prophylaxis on treatment. Disposition. Stable at least. No abdominal pain. Will need to see what this represents. Will follow-up after CT scan. Still hoping possibly home tomorrow. Time-Based Coding :: [TOTAL MINUTES] spent with patient and on the chart (including review of chart, obtaining history, exam, reviewing outside data, placing orders, documenting exam and treatment plan, and counseling patient) on [DATE]. Quality VTE Deep Vein Thrombosis/Pulmonary Embolism Present on Admission: No
--- NOTE | 2024-05-31 08:30 | CM.DPC ---
DCP Cont. Reviewed EMR and team rounds for status updates. Per Dr. Grover, pt has new abdominal pain, and is not ready for d/c today. He anticipates that pt will be ready to d/c home tomorrow, 06/01.
[2024-05-31] MEDS: METOPROLOL IR 25 MG TABLET 12.5 MG PO ×2 (08:56→20:21)
[2024-05-31] MEDS: APIXABAN 5 MG TABLET 2.5 MG PO ×2 (08:56→20:20)
[2024-05-31] MEDS: ACETAMINOPHEN 325 MG TABLET 650 MG PO (08:57)
--- NOTE | 2024-05-31 09:55 | PT.IIE ---
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 Easy bruisability Gout History of COPD Hx of deep venous thrombosis Hx of fracture of femur Hx of gastroesophageal reflux (GERD) Hx of primary hypertension Hx of renal cell cancer Incontinence Leg swelling Lumbar hernia Neuropathy 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 Pulmonary embolism Rectal cancer Rectal carcinoma Retained urethral stent S/p nephrectomy Unspecified essential hypertension Physical Therapy Inpatient Evaluation/Re-Eval M1 PT/OT-IP Prior Functional Status Start: 05/31/24 13:29 Freq: NEEDED Status: Active Protocol: Document 05/31/24 09:55 AB (Rec: 05/31/24 13:44 AB [id number]) Medical Review Prior Functional Status Medical History Reviewed Yes Communication able to make needs known Mobility and Gait pt stated that she was modified independent with all mobilities and ambulation using a FWW Social History Living Arrangements House Number of Floors (Floors) One Floor Number of Stairs To Enter/Railing? 5 steps B rails to enter the house Home Environment Standard Height Toilet,Tub/ Shower Home Equipment Front Wheel Walker,Raised Toilet Seat Without Armrests, Shower Seat with Backrest,Hand Held Shower,Grab Bars In Shower Additional Social History Comment pt lives with her daughter; grandson lives in the same property M2 PT-IP Current Condition Start: 05/31/24 13:29 Freq: NEEDED Status: Active Protocol: Document 05/31/24 09:55 AB (Rec: 05/31/24 13:44 AB [id number]) Physical Therapy Current Condition Current Condition Evaluation Date 05/31/24 Treatment Diagnosis UTI; SELENA; difficulty in walking Onset Date 05/26/24 M3 PT-IP Subjective Start: 05/31/24 13:29 Freq: NEEDED Status: Active Protocol: Document 05/31/24 09:55 AB (Rec: 05/31/24 13:44 AB [id number]) Subjective Physical Therapy Visit Type Type Initial Evaluation Visit Start Time 09:55 Visit Stop Time 10:20 Number of ACTIVITIES ATTENDANT Visits 0 Physical Therapy Visit Comments Patient Comments agreeable to do PT Therapy Pain Assessment Pain When Pain Assessed At Rest Pain Present Pain Present Pain Reported Location Right Lower Abdomen Intensity 8 Scale Used Numeric (0 - 10) Pain Behaviors Guarding,Holding Area Pain Management Techniques Distraction,Modification of Treatment,Re-positioning, Timing of Activity with Medications M4 PT-IP Mobility and Gait Start: 05/31/24 13:29 Freq: NEEDED Status: Active Protocol: Document 05/31/24 09:55 AB (Rec: 05/31/24 13:44 [id number]) PT-Bed Mobility Assessment Supine to Sit Supine to Sit Standby Assistance Sit to Supine Sit to Supine Standby Assistance PT-Transfer Assessment Sit to and From Stand Sit to and from Stand Minimal Assistance,Moderate Assistance,Maximum Assistance, 1 Person Assistance,Use of Upper Extremities Equipment Transfer Assistive Device Gait Belt,Front Wheeled Walker Orthotic/Prosthetic Devices or Brace: No Transfers Transfer Destination Bed Transfer Technique ambulated Transfer Ability Level of Assist Minimal Assistance,1 Person Assistance,Use of Upper Extremities Comments Mobility Comments pt sitting on the chair and agreeable to do PT. obtained PLOF and home set up. completed sit to stand from chair mod to max A and max cues and ambulated in room using FWW 30 ft. pt sat on EOB . completed sit<>supine SBA. sit to stand from EOB min A and step transfer to chair min A and cues using FWW. pt with increase foward trunk flexion and scoliosis with unsteady antalgic gait. pt wanted to rest. c/o feeling tired. positioned pt on the chair. call light and table placed within reach. Gait Assessment Gait Gait Assistance Required: Minimum Assistance Distance (Feet) 30 Able to Maintain Weight Bearing Status Yes During Gait Assistive Devices Assistive Device Gait Belt,Front Wheeled Walker Orthotic/Prosthetic Devices or Brace: No Gait Deviations General Gait Pattern Decreased Stride Length, Decreased Feet Clearance, Flexed Trunk,Step-to Gait Factors Limiting Gait Function Factors Limiting Gait Function Decreased Activity Tolerance, Decreased Sensation,Decreased Strength,Limited Range of Motion,Pain,Poor Balance,Poor Safety Awareness PT-Balance Assessment Sitting Balance and Reactions Static Sitting Balance Ability Normal Dynamic Sitting Balance Ability Good Standing Balance and Reactions Static Standing Balance Ability Fair Dynamic Standing Balance Ability Fair Device Used FWW M5 PT-IP Objective Assessments Start: 05/31/24 13:29 Freq: NEEDED Status: Active Protocol: Document 05/31/24 09:55 AB (Rec: 05/31/24 13:44 AB [id number]) Orientation Orientation/Cognition Level of Alertness Alert Orientation Name,Place,Situation Language Function Ability No Deficits Noted Safety Awareness Decreased Safety Awareness Memory Description No Deficits Noted Gross Range of Motion Lower Extremity ROM Assessment Within Functional Limits Strength Lower Extremity Strength Assessment Left Impaired Hip 3-/5 Knee 3+/5 Sensation Assessment Sensation Gross Sensation Right LE Impaired,Left LE Impaired Sensation Description Numbness Comments Sensation Comments BLE neuropathy Muscle Tone Muscle Tone WNL Yes M6 PT-IP Treatment Start: 05/31/24 13:29 Freq: NEEDED Status: Active Protocol: Document 05/31/24 09:55 AB (Rec: 05/31/24 13:44 AB [id number]) Physical Therapy Treatment Education Education Provided Safety M7 PT-IP Assessment and Plan Start: 05/31/24 13:29 Freq: NEEDED Status: Active Protocol: Document 05/31/24 09:55 AB (Rec: 05/31/24 13:44 AB [id number]) PT Summary Assessment and Plan Potential Rehabilitation Potential Fair Status of Condition at Evaluation Evolving Summary Impairments Pain,ROM,Strength,Balance, Coordination,Sensation,Bed Mobility,Transfers,Gait, Activity Tolerance Assessment Summary pt is an 84 y/o F with c/o diarrhea/vomiting and admitted for UTI, SELENA. pt requiring mod to max A for sit to stand from chair but only min A from the EOB. pt requiring min A for ambulation using fWW but was not able to walk much due to c/o feeling tired. pt with decrease activity tolerance affecting level of assistance and mobility independence. pt will require 24/7 assist and will benefit from SNF rehab. will continue to assess progress. Goals Bed Mobility Goal Independent Transfer Goal Standby Assistance,Front Wheeled Walker Gait Goal Standby Assistance,Front Wheel Walker Gait Distance 100 Other Goals up/down 5 steps B rail SBA Days to Meet Goals 10 Frequency of Treatment Frequency Of Treatment Once a Day Treatment Plan Physical Therapy Treatment Plan Bed Mobility Training,Transfer Training,Gait Training, Therapeutic Exercise,Balance Retraining,Discharge Planning, Hot or Cold Pack,Neuromuscular Re-ed,Coordination Retraining ,Manual Therapy Precautions Other Precautions falls, ostomy and nephrostomy bags Recommendations To Nursing Amount of Assist Needed 1 Person Assist Discharge Recommendations PT Discharge Recommendations Home with 20/10 Assist Available,Home Health,SNF Rehab Transportation Needs at Discharge Private Vehicle,Wheelchair/ Cabulance
--- NOTE | 2024-05-31 09:55 | PT.IIE ---
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 Easy bruisability Gout History of COPD Hx of deep venous thrombosis Hx of fracture of femur Hx of gastroesophageal reflux (GERD) Hx of primary hypertension Hx of renal cell cancer Incontinence Leg swelling Lumbar hernia Neuropathy 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 Pulmonary embolism Rectal cancer Rectal carcinoma Retained urethral stent S/p nephrectomy Unspecified essential hypertension Physical Therapy Inpatient Evaluation/Re-Eval M1 PT/OT-IP Prior Functional Status Start: 05/31/24 13:29 Freq: NEEDED Status: Active Protocol: Document 05/31/24 09:55 AB (Rec: 05/31/24 13:44 AB [id number]) Medical Review Prior Functional Status Medical History Reviewed Yes Communication able to make needs known Mobility and Gait pt stated that she was modified independent with all mobilities and ambulation using a FWW Social History Household Members children Living Arrangements House Number of Floors (Floors) One Floor Number of Stairs To Enter/Railing? 5 steps B rails to enter the house Home Environment Standard Height Toilet,Tub/ Shower Home Equipment Front Wheel Walker,Raised Toilet Seat Without Armrests, Shower Seat with Backrest,Hand Held Shower,Grab Bars In Shower Additional Social History Comment pt lives with her son M2 PT-IP Current Condition Start: 05/31/24 13:29 Freq: NEEDED Status: Active Protocol: Document 05/31/24 09:55 AB (Rec: 05/31/24 13:44 AB [id number]) Physical Therapy Current Condition Current Condition Evaluation Date 05/31/24 Treatment Diagnosis UTI; SELENA; difficulty in walking Onset Date 05/26/24 M3 PT-IP Subjective Start: 05/31/24 13:29 Freq: NEEDED Status: Active Protocol: Document 05/31/24 09:55 AB (Rec: 05/31/24 13:44 AB [id number]) Subjective Physical Therapy Visit Type Type Initial Evaluation Visit Start Time 09:55 Visit Stop Time 10:20 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 Physical Therapy Visit Comments Patient Comments agreeable to do PT Therapy Pain Assessment Pain When Pain Assessed At Rest Pain Present Pain Present Pain Reported Location Right Lower Abdomen Intensity 8 Scale Used Numeric (0 - 10) Pain Behaviors Guarding,Holding Area Pain Management Techniques Distraction,Modification of Treatment,Re-positioning, Timing of Activity with Medications M4 PT-IP Mobility and Gait Start: 05/31/24 13:29 Freq: NEEDED Status: Active Protocol: Document 05/31/24 09:55 AB (Rec: 05/31/24 13:44 AB [id number]) PT-Bed Mobility Assessment Supine to Sit Supine to Sit Standby Assistance Sit to Supine Sit to Supine Standby Assistance PT-Transfer Assessment Sit to and From Stand Sit to and from Stand Minimal Assistance,Moderate Assistance,Maximum Assistance, 1 Person Assistance,Use of Upper Extremities Equipment Transfer Assistive Device Gait Belt,Front Wheeled Walker Orthotic/Prosthetic Devices or Brace: No Transfers Transfer Destination Bed Transfer Technique ambulated Transfer Ability Level of Assist Minimal Assistance,1 Person Assistance,Use of Upper Extremities Comments Mobility Comments pt sitting on the chair and agreeable to do PT. obtained PLOF and home set up. completed sit to stand from chair mod to max A and max cues and ambulated in room using FWW 30 ft. pt sat on EOB . completed sit<>supine SBA. sit to stand from EOB min A and step transfer to chair min A and cues using FWW. pt with increase foward trunk flexion and scoliosis with unsteady antalgic gait. pt wanted to rest. c/o feeling tired. positioned pt on the chair. call light and table placed within reach. Gait Assessment Gait Gait Assistance Required: Minimum Assistance Distance (Feet) 30 Able to Maintain Weight Bearing Status Yes During Gait Assistive Devices Assistive Device Gait Belt,Front Wheeled Walker Orthotic/Prosthetic Devices or Brace: No Gait Deviations General Gait Pattern Decreased Stride Length, Decreased Feet Clearance, Flexed Trunk,Step-to Gait Factors Limiting Gait Function Factors Limiting Gait Function Decreased Activity Tolerance, Decreased Sensation,Decreased Strength,Limited Range of Motion,Pain,Poor Balance,Poor Safety Awareness PT-Balance Assessment Sitting Balance and Reactions Static Sitting Balance Ability Normal Dynamic Sitting Balance Ability Good Standing Balance and Reactions Static Standing Balance Ability Fair Dynamic Standing Balance Ability Fair Device Used FWW M5 PT-IP Objective Assessments Start: 05/31/24 13:29 Freq: NEEDED Status: Active Protocol: Document 05/31/24 09:55 AB (Rec: 05/31/24 13:44 AB [id number]) Orientation Orientation/Cognition Level of Alertness Alert Orientation Name,Place,Situation Language Function Ability No Deficits Noted Safety Awareness Decreased Safety Awareness Memory Description No Deficits Noted Gross Range of Motion Lower Extremity ROM Assessment Within Functional Limits Strength Lower Extremity Strength Assessment Left Impaired Hip 3-/5 Knee 3+/5 Sensation Assessment Sensation Gross Sensation Right LE Impaired,Left LE Impaired Sensation Description Numbness Comments Sensation Comments BLE neuropathy Muscle Tone Muscle Tone WNL Yes M6 PT-IP Treatment Start: 05/31/24 13:29 Freq: NEEDED Status: Active Protocol: Document 05/31/24 09:55 AB (Rec: 05/31/24 13:44 AB [id number]) Physical Therapy Treatment Education Education Provided Safety M7 PT-IP Assessment and Plan Start: 05/31/24 13:29 Freq: NEEDED Status: Active Protocol: Document 05/31/24 09:55 AB (Rec: 05/31/24 13:44 AB [id number]) PT Summary Assessment and Plan Potential Rehabilitation Potential Fair Status of Condition at Evaluation Evolving Summary Impairments Pain,ROM,Strength,Balance, Coordination,Sensation,Bed Mobility,Transfers,Gait, Activity Tolerance Assessment Summary pt is an 84 y/o F with c/o diarrhea/vomiting and admitted for UTI, SELENA. pt requiring mod to max A for sit to stand from chair but only min A from the EOB. pt requiring min A for ambulation using fWW but was not able to walk much due to c/o feeling tired. pt with decrease activity tolerance affecting level of assistance and mobility independence. pt will require 24/7 assist and will benefit from SNF rehab. will continue to assess progress. Goals Bed Mobility Goal Independent Transfer Goal Standby Assistance,Front Wheeled Walker Gait Goal Standby Assistance,Front Wheel Walker Gait Distance 100 Other Goals up/down 5 steps B rail SBA Days to Meet Goals 10 Frequency of Treatment Frequency Of Treatment Once a Day Treatment Plan Physical Therapy Treatment Plan Bed Mobility Training,Transfer Training,Gait Training, Therapeutic Exercise,Balance Retraining,Discharge Planning, Hot or Cold Pack,Neuromuscular Re-ed,Coordination Retraining ,Manual Therapy Precautions Other Precautions falls, ostomy and nephrostomy bags Recommendations To Nursing Amount of Assist Needed 1 Person Assist Discharge Recommendations PT Discharge Recommendations Home with 20/10 Assist Available,Home Health,SNF Rehab Transportation Needs at Discharge Private Vehicle,Wheelchair/ Cabulance
[2024-05-31] MEDS: SODIUM CHLORIDE 0.45% 1,000 ML 100 ML IV ×2 (10:00→23:33)
[2024-05-31] MEDS: OXYCODONE IR 10 MG TABLET PO ×2 (10:25→23:37)
--- NOTE | 2024-05-31 13:30 | P.PN_ITS ---
Subjective Subjective Date Patient Seen: 05/31/24 Time Patient Seen: 13:30 Interval history: Patient still having right lower quadrant abdominal pain. No other significant changes. Patient still having no appetite issues she eats she feels nauseated. She has not been vomiting but she feels nauseated. She is on omeprazole at home. Exam Vital Signs (past 8 hours): - 05/31/24 07:25 05/31/24 08:00 Temperature 96.3 F L Pulse Rate 65 Respiratory Rate 14 Blood Pressure 140/58 L Pulse Oximetry 99 Oxygen Delivery Method Room Air Oxygen Flow Rate 0 Fraction of Inspired Oxygen 21 SaO2/FiO2 Ratio 476 Oxygen Delivery Method Room Air Oxygen Flow Rate 0 Narrative Exam Narrative: Alert female in no acute distress holding her right lower quadrant Right lower quadrant she does have tenderness can of in her adipose tissue on the right side there was no erythema no masses no swelling. No other change. Seems not to have any tenderness deep into the abdominal wall. Objective Labs 05/31/24 05:15 05/31/24 05:15 Labs: Laboratory Results - last 24 hr 05/31/24 05:15 WBC 6.1 RBC 3.10 L Hgb 8.2 L Hct 25.4 L MCV 81.7 MCH 26.5 MCHC 32.4 RDW 15.9 H Plt Count 264 Neut % (Auto) 67.1 Lymph % (Auto) 20.3 L [place] % (Auto) 6.3 Eos % (Auto) 5.7 H Baso % (Auto) 0.6 Neut # (Auto) 4100 Lymph # (Auto) 1200 [place] # (Auto) 400 Eos # (Auto) 400 Baso # (Auto) 0 Sodium 138 Potassium 4.2 Chloride 115 H Carbon Dioxide 14 L BUN 27 H Creatinine 1.89 H Estimated GFR 26 L BUN/Creatinine Ratio 14.3 Glucose 82 Calcium 8.8 Total Bilirubin 0.2 AST 10 L ALT 9 Alkaline Phosphatase 107 Total Protein 6.5 Albumin 2.7 L Globulin 3.8 Albumin/Globulin Ratio 0.7 L PFSH Medical History Hx of fracture of femur Hx of deep venous thrombosis Hx of primary hypertension Hx of gastroesophageal reflux (GERD) History of COPD Hx of renal cell cancer Gout Chronic UTI Arthritis Pulmonary embolism Unspecified essential hypertension Colitis with rectal bleeding Peristomal skin complication Lumbar hernia Retained urethral stent S/p nephrectomy Anticoagulated Chronic renal disease, stage 3, moderately decreased glomerular filtration rate (GFR) between 30-59 mL/min/1.73 square meter [address]ostomy in place Leg swelling Easy bruisability Rectal carcinoma Port-A-Cath in place Neuropathy Incontinence Allergic reaction 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 Abnormal mammogram of right breast Parastomal hernia 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 Rectal cancer Surgical History History of ureter stent H/O nephrostomy H/O lithotripsy History of low anterior resection of rectum Family History Mother Hypertension Cancer Son Hypertension Grandfather Heart disease Cancer Granddaughter Eczema Social History marital status: number of children: 1 household members: children lives independently: Yes occupational status: previously employed and other Smoking Status: Current some day smoker Tobacco: How many years used: 60 alcohol intake: current substance use type: does not use caffeine: Yes Type(s) of exercise: none Assessment & Plan Assessment & Plan narrative: Abdominal pain right lower quadrant etiology is unclear. Discussed with surgeon. CT scan certainly does show some changes in the subcutaneous tissue and skin but I can not really identify anything definitive. Cellulitis does not seem like it. She had no history of trauma. At this point I am really not sure what the cause is. Her white counts normal she does not have a fever I do not think it has an incarcerated hernia but could it be related to that way. Will have surgeon look see what they think see if we need to make any changes in treatment. Otherwise will hold at this time. Nausea shortly after eating possible gastric emptying issue I do not think it has an ulcer. Will make sure she is on her omeprazole. May need a scope if it does not resolve. Will see what surgeons think will add Reglan may need to consider gastric emptying study. Certainly not eating enough to discharge at this point. Will see how things go over the next 24 hours if Reglan makes a difference great if not may need a scope or further workup Code status long discussion with the patient. She would prefer to be note code. Will make so today. Time-Based Coding :: [TOTAL MINUTES] spent with patient and on the chart (including review of chart, obtaining history, exam, reviewing outside data, placing orders, documenting exam and treatment plan, and counseling patient) on [DATE]. Quality VTE Deep Vein Thrombosis/Pulmonary Embolism Present on Admission: No
--- NOTE | 2024-05-31 14:06 | P.CONS_ITS ---
History of Present Illness Consult details Chief complaint: Dehydrated not feeling well Reason for consult: Right lower quadrant panniculitis Requesting provider: Eric Grover Narrative: This is a 84-year-old woman with a past medical history of hypertension, DVT, AFib on anticoagulation, rectal cancer status post APR and end colostomy complicated by large parastomal hernia, right nephrectomy status post large lumbar hernia who presented to the hospital with a urinary tract infection. Patient has a nephrostomy tube on the left in place. Patient was found to have Pseudomonas growing in her urinary tract and has has been managed on cefepime. Patient began to have worsening of chronic right lower quadrant abdominal pain starting yesterday. Overnight the patient states that the pain has continued to increase. In addition to this she has had nausea and dry heaves. Patient states that she does not have appetite at this time. CT abdomen and pelvis has been performed and most recent demonstrated right lower quadrant abdominal wall cellulitis and no evidence of bowel obstruction was identified. On CT also patient was found to have gastric distention and significant bowel herniated in the region of the cellulitis. Patient states that the pain started approximately 1 month ago in her right lower quadrant. It has been stable until yesterday where it increased. She describes it as being sharp in nature. It is alleviated by the oxycodone. Denies any recent skin breakdown in this area. Patient states that she typically uses the miconazole powder in her pannus folds in order to decrease yeast infections. Meds Home Medications and Allergies Home Medications Medication Instructions Recorded Confirmed Type latanoprost 0.005 % eye drops 1 drp EYE-BOTH BEDTIME 02/09/18 05/26/24 History amlodipine 5 mg tablet (Norvasc) 5 mg PO QPM 03/29/18 05/26/24 History metoprolol tartrate 25 mg tablet 12.5 mg PO BID 05/06/22 05/26/24 History ipratropium 0.5 mg-albuterol 3 mg 3 ml inhalation 4XD 07/16/22 05/26/24 History (2.5 mg base)/3 mL nebulization soln oxycodone 10 mg tablet 10 mg PO Q4H PRN Pain, Moderate 07/20/22 05/26/24 Rx (4-6) #30 tabs ipratropium 20 mcg-albuterol 100 1 puff inhalation 4XD 03/31/23 05/26/24 History mcg/actuation mist for inhalation (Combivent Respimat) apixaban 2.5 mg tablet 2.5 mg PO BID 03/17/24 05/26/24 History betamethasone dipropionate 0.05 % 1 applic topical DAILY PRN Rash 03/17/24 05/26/24 History topical cream ergocalciferol (vitamin D2) 1,250 1,250 mcg PO QWEEK 03/17/24 05/26/24 History mcg (50,000 unit) capsule lorazepam 0.5 mg tablet 0.5 mg PO DAILY PRN Anxiety 03/17/24 05/26/24 History miconazole nitrate 2 % topical 1 applic topical DAILY 03/17/24 05/26/24 History cream omeprazole 20 mg capsule,delayed 20 mg PO DAILY 03/17/24 05/26/24 History release oxycodone-acetaminophen 5 mg-325 2.5 ml PO Q4-6H PRN Pain (Scale 03/17/24 05/26/24 History mg/5 mL oral solution Score 4-6) trazodone 50 mg tablet 50 mg PO BEDTIME PRN LORI 03/17/24 05/26/24 History Allergies Allergy/AdvReac Type Severity Reaction Status Date / Time cashew nut Allergy Severe Anaphylaxis Verified 05/26/24 12:04 ciprofloxacin [CIPROFLOXACIN] Allergy Intermediate HIVES UP Verified 05/26/24 12:04 ARM RIGHT AFTER IV DOSE STARTED nitrofurantoin Allergy Intermediate rash, Verified 05/26/24 12:04 [From MACRODANTIN] itching Review of Systems Review of Systems ROS: Yes All systems reviewed with the patient and are negative except as otherwise documented Constitutional Constitutional: Reports as per HPI Eyes Eyes: Reports system reviewed and no additional complaints, except as documented ENT Ears, Nose, Mouth, and Throat: Yes system reviewed and no additional complaints, except as documented Cardiovascular Cardiovascular: Denies chest pain, Reports pedal edema (Chronic swelling of left lower extremity after DVT) and Denies edema Respiratory Respiratory: Reports system reviewed and no additional complaints, except as documented, Denies pain on inspiration and Denies pain with cough Gastrointestinal Gastrointestinal: Reports system reviewed and no additional complaints, except as documented Genitourinary Genitourinary: Reports system reviewed and no additional complaints, except as documented Musculoskeletal Musculoskeletal: Reports system reviewed and no additional complaints, except as documented and Reports arthralgias Integumentary/Breasts Skin/Breast: Reports system reviewed and no additional complaints, except as documented Neurologic Neurologic: Reports system reviewed and no additional complaints, except as documented Psychiatric Psychiatric: Reports system reviewed and no additional complaints, except as documented Endocrine Endocrine: Reports system reviewed and no additional complaints, except as documented Hematologic/Lymphatic Hematologic/Lymphatic: Reports system reviewed and no additional complaints, except as documented Exam Vital Signs (past 8 hours): - 05/31/24 07:25 05/31/24 08:00 Temperature 96.3 F L Pulse Rate 65 Respiratory Rate 14 Blood Pressure 140/58 L Pulse Oximetry 99 Oxygen Delivery Method Room Air Oxygen Flow Rate 0 Fraction of Inspired Oxygen 21 SaO2/FiO2 Ratio 476 Oxygen Delivery Method Room Air Oxygen Flow Rate 0 Narrative Exam Narrative: Const Other: well developed well nourished Resp Other: No respiratory distress, no audible wheezing Cardio Other: No chest pain, mild left pedal edema GI Other: Soft, nondistended, right lower quadrant tenderness to palpation overlying pannus cellulitis, non distended multiple hernias with large parastomal hernia surrounding the left lower quadrant colostomy. Stool in the bag. Colostomy appears pink and viable. No tenderness to palpation noted surrounding the large peristomal hernia and the colostomy site. Other: draining clear yellow urine via L sided nephrostomy with no surrounding erythema Neuro Other: alert awake oriented x3 moving all limbs requires assist to mobilize Objective Imaging CT scan - abdomen: My impression: I reviewed the CT images. It appears that patient has right lower quadrant abdominal wall cellulitis Radiologist's impression: [place] [address] CT Scan Report Signed Patient: Sherlyn Ward MR#: [id number] : 1940 Acct:[id number] Age/Sex: 84 / F Date of Service: 05/31/24 Loc: 214-1 Accession Number: [id number] Procedure: CT abdomen pelvis wo con Ordering Provider: Eric Grover MD PROCEDURE: CT ABDOMEN PELVIS WO CON INDICATIONS: new right lower quad pain TECHNIQUE: Axial sections were acquired from the lung bases to the pubic symphysis. Coronal and sagittal reformats were performed. For radiation dose reduction, the following was used: automated exposure control, adjustment of mA and/or kV according to patient size. COMPARISON: [facility], CT, CT ABDOMEN PELVIS WO CON, 05/26/2024, 16:13. [facility], CT, CT ABDOMEN PELVIS WO CON, 02/27/2021, 23:28. FINDINGS: Image quality: Diagnostic. Lower Chest: No significant findings. URINARY: Right Kidney: Right kidney is absent. Left Kidney: Percutaneous nephrostomy tube is seen in stable position. Mild fat stranding is seen adjacent to the renal pelvis. Probable cysts again seen in the left kidney with varying densities, not significantly changed. Left Ureter: Left mid ureteral 8 mm calculus appears unchanged. Bladder: Normal wall thickness. No stones. ABDOMEN: Liver: A few small hypoattenuating lesions again seen in the liver, most likely cysts and unchanged. Gallbladder: Mildly distended appearance of the gallbladder without radiopaque gallstones or surrounding inflammatory changes, nonspecific and possibly related to the timing of the most recent meal. Biliary ducts: No biliary dilation. Pancreas: No ductal dilation. Spleen: Size is within normal limits. Adrenal Glands: No adrenal nodules. Stomach and Bowel: Stable presacral soft tissue attenuation. Portion of the stomach and transverse colon are contained within a large antral hernia. Small bowel loops are seen within a lower abdominal ventral hernia. No signs of bowel obstruction. A portion of the hepatic flexure is seen within a right posterolateral abdominal wall hernia. Appendix is within normal limits in size. Peritoneum: No abnormal intraperitoneal fluid. No free air. Ventral Wall: Multiple prominent ventral hernias containing fat and loops of bowel, not significantly changed when compared to the prior exam. Nonspecific subcutaneous soft tissue edema and skin thickening at the lateral aspect of the mid abdomen. Abdominal Nodes: No enlarged retroperitoneal or mesenteric lymph nodes. Vessels: Aorta and inferior vena cava are normal in size. Severe aortic atherosclerotic calcifications. PELVIS: Pelvic Organs: Unremarkable. Pelvic Nodes: Unremarkable. Miscellaneous: No inguinal hernias are seen. Bones: Moderate L5 vertebral body compression fracture appears unchanged. Surgical fixation hardware is seen in the left proximal femur. IMPRESSION: 1. New nonspecific subcutaneous edema and skin thickening at the right lateral abdominal wall. Findings could represent cellulitis, dependent edema, or interval trauma. Recommend correlation with physical exam findings and site of pain. 2. Multiple anterior and lateral abdominal wall hernias containing bowel and mesenteric fat without signs of bowel obstruction. 3. Stable left percutaneous nephrostomy tube. Persistent fat stranding is seen adjacent to the left renal pelvis and proximal ureter. Stable left mid ureteral calculus. 4. Persistent presacral soft tissue attenuation is of uncertain etiology although proctitis or mass are not excluded, not significantly changed when compared to the prior CT. Labs 05/31/24 05:15 05/31/24 05:15 Labs: Laboratory Results - last 24 hr 05/31/24 05:15 WBC 6.1 RBC 3.10 L Hgb 8.2 L Hct 25.4 L MCV 81.7 MCH 26.5 MCHC 32.4 RDW 15.9 H Plt Count 264 Neut % (Auto) 67.1 Lymph % (Auto) 20.3 L Carlton % (Auto) 6.3 Eos % (Auto) 5.7 H Baso % (Auto) 0.6 Neut # (Auto) 4100 Lymph # (Auto) 1200 Carlton # (Auto) 400 Eos # (Auto) 400 Baso # (Auto) 0 Sodium 138 Potassium 4.2 Chloride 115 H Carbon Dioxide 14 L BUN 27 H Creatinine 1.89 H Estimated GFR 26 L BUN/Creatinine Ratio 14.3 Glucose 82 Calcium 8.8 Total Bilirubin 0.2 AST 10 L ALT 9 Alkaline Phosphatase 107 Total Protein 6.5 Albumin 2.7 L Globulin 3.8 Albumin/Globulin Ratio 0.7 L PFSH Medical History Hx of fracture of femur Hx of deep venous thrombosis Hx of primary hypertension Hx of gastroesophageal reflux (GERD) History of COPD Hx of renal cell cancer Gout Chronic UTI Arthritis Pulmonary embolism Unspecified essential hypertension Colitis with rectal bleeding Peristomal skin complication Lumbar hernia Retained urethral stent S/p nephrectomy Anticoagulated Chronic renal disease, stage 3, moderately decreased glomerular filtration rate (GFR) between 30-59 mL/min/1.[address] in place Leg swelling Easy bruisability Rectal carcinoma Port-A-Cath in place Neuropathy Incontinence Allergic reaction 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 Abnormal mammogram of right breast Parastomal hernia 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 Rectal cancer Surgical History History of ureter stent H/O nephrostomy H/O lithotripsy History of low anterior resection of rectum Family History Mother Hypertension Cancer Son Hypertension Grandfather Heart disease Cancer Granddaughter Eczema Social History marital status: number of children: 1 household members: children lives independently: Yes occupational status: previously employed and other Tobacco & Substance Use Smoking Status: Current some day smoker Tobacco: How many years used: 60 alcohol intake: current substance use type: does not use Diet and Exercise caffeine: Yes Type(s) of exercise: none Assessment & Plan Assessment and plan (1) Cellulitis: Qualifiers: Site of cellulitis: trunk Site of cellulitis of trunk: abdominal wall Qualified Code(s): L03.311 - Cellulitis of abdominal wall Status: Acute (2) Acute kidney injury: Status: Acute (3) Parastomal hernia 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: Problem details: enlarging parastomal and ventral hernias Status: Inactive Assessment & Plan narrative: This 84-year-old woman with multiple comorbidities who presented for a Pseudomonas urinary tract infection in the setting of having a left nephrostomy tube who suddenly began to have right lower quadrant abdominal pain. Patient was found to have right lower quadrant cellulitis. Can not rule out that there is any underlying bowel pathology as patient has a complex abdomen with multiple hernias containing bowel which are near the cellulitis site. -recommend to continue cefepime for urinary tract infection and we will consult pharmacy for IV vancomycin. -agree with recommendation to initiate Reglan for patient's nausea and gastric distention. -encourage mobility and out of bed -monitor ostomy output for dehydration -continue maintenance IV fluid -we will continue to follow Time-Based Coding :: 45 minutes spent with patient and on the chart (including review of chart, obtaining history, exam, reviewing outside data, placing orders, documenting exam and treatment plan, and counseling patient) on May 31, 2024 PROFEE Charge Codes Inpatient or Observation consultation: [id number]
--- NOTE | 2024-05-31 14:30 | OT.IPNOTE ---
Pt states too tired to do OT eval today . Able to get prior level and home set-up from pt. NO charge.
[2024-05-31 16:00] VITALS: BP 151/51; PULSE 64; RESP 20; TEMP 35.7; O2SAT 98
[2024-05-31] MEDS: CEFEPIME 0.5 GM in SODIUM CHLORIDE 0.9% 100 ML IV (16:11)
[2024-05-31] MEDS: METOCLOPRAMIDE HCL 5 MG TABLET PO ×2 (16:11→20:20)
[2024-05-31] MEDS: AMLODIPINE 5 MG TABLET PO (16:11)
[2024-05-31] MEDS: VANCOMYCIN 2,000 MG/400 ML PIGGYBACK 200 MG IV (16:51)
[2024-05-31 20:04] VITALS: BP 136/47; PULSE 64; RESP 16; TEMP 35.9; O2SAT 100
[2024-05-31] MEDS: LATANOPROST 0.005% OPHTH 2.5 ML 1 DROPS EYE-BOTH (20:17)
[2024-06-01 04:55] VITALS: BP 133/45; PULSE 57; RESP 16; TEMP 36.1; O2SAT 98
[2024-06-01 05:30] LABS: Add Manual Diff / Slide Review NO; Basophils Absolute Auto 0 /uL (0-100); Basophils Percent Auto 0.6 % (0-2); Eosinophils Absolute Auto 400 /uL (0-450); Eosinophils Percent Auto 6.1 % (2-4); Hematocrit 25.3 % (36-46); Hemoglobin 8.1 g/dL (12.0-16.0); Lymphocytes Absolute Auto 1000 /uL (1100-4500); Lymphocytes Percent Auto 14.6 % (25-40); Mean Corpuscular HGB Conc 32.1 % (30-36); Mean Corpuscular Hemoglobin 26.3 PG (26-34); Monocytes Absolute Auto 400 /uL (0-900); Monocytes Percent Auto 5.6 % (3-14); Neutrophils Absolute Auto 5300 /uL (1500-7000); Neutrophils Percent Auto 73.1 % (50-75); Platelet Count 267 X10^3/uL (150-400); Red Blood Cell Count 3.08 X10^6/uL (4.0-5.2); Red Cell Distribution Width 16.7 % (11.6-14.8); White Blood Cell Count 7.2 X10^3/uL (4.5-11.0)
[2024-06-01] MEDS: PANTOPRAZOLE DR 20 MG TABLET PO (05:41)
[2024-06-01 05:42] LABS: Alanine Aminotransferase 8 IU/L (<35); Albumin 2.6 g/dL (3.5-5.0); Albumin Globulin Ratio 0.7 (1.0-2.8); Alkaline Phosphatase 95 U/L (38-126); Aspartate Aminotransferase 11 IU/L (14-36); BUN Creatinine Ratio 12.9 (6-22); Blood Urea Nitrogen 23 mg/dL (7-17); Calcium 9.1 mg/dL (8.4-10.2); Carbon Dioxide 14 mmol/L (22-32); Chloride 116 mmol/L (98-107); Estimated Glomerular Filt Rate 28 mL/min (>60); Globulin 3.7 g/dL (1.7-4.1); Glucose 88 mg/dL (80-110); HEMOLYSIS < 15 (0-50); Potassium 3.9 mmol/L (3.4-5.1); Sodium 140 mmol/L (137-145); Total Protein 6.3 g/dL (6.3-8.2)
[2024-06-01 05:54] LABS: Bilirubin Total < 0.1 mg/dL (0.2-1.3)
[2024-06-01] MEDS: METOCLOPRAMIDE HCL 5 MG TABLET PO ×2 (07:41→13:01)
[2024-06-01] MEDS: METOPROLOL IR 25 MG TABLET 12.5 MG PO ×2 (07:42→20:27)
[2024-06-01] MEDS: APIXABAN 5 MG TABLET 2.5 MG PO ×2 (07:44→20:28)
[2024-06-01 08:00] VITALS: BP 140/54; PULSE 62; RESP 17; TEMP 36.3; O2SAT 99
--- NOTE | 2024-06-01 09:30 | OT.IP.EVAL ---
Current Diagnoses Parastomal hernia 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 (05/26/24) Cellulitis of abdominal wall (05/26/24) Cellulitis, unspecified (05/26/24) Acute kidney failure, unspecified (05/26/24) Urinary tract infection, site not specified (05/26/24) Past Medical History (Last Reviewed 03/18/24 @ 10:06 by Duncan Monaco DO) Abnormal mammogram of right breast Allergic reaction Anticoagulated Arthritis Chronic renal disease, stage 3, moderately decreased glomerular filtration rate (GFR) between 30-59 mL/min/1.73 square meter Chronic UTI Colitis with rectal bleeding 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 Easy bruisability Gout History of COPD Hx of deep venous thrombosis Hx of fracture of femur Hx of gastroesophageal reflux (GERD) Hx of primary hypertension Hx of renal cell cancer Incontinence Leg swelling Lumbar hernia Neuropathy 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 Pulmonary embolism Rectal cancer Rectal carcinoma Retained urethral stent S/p nephrectomy Unspecified essential hypertension Surgical History (Last Reviewed 03/18/24 @ 10:06 by Duncan Monaco DO) H/O lithotripsy H/O nephrostomy History of low anterior resection of rectum History of ureter stent Occupational Therapy Inpatient Evaluation/Re-Eval M1 PT/OT-IP Prior Functional Status Start: 05/31/24 13:29 Freq: NEEDED Status: Active Protocol: Document 06/01/24 09:25 [facility] (Rec: 06/01/24 09:37 [facility] [id number]) Medical Review Prior Functional Status Medical History Reviewed Yes Communication able to make needs known Mobility and Gait pt stated that she was modified independent with all mobilities and ambulation using a FWW Activities of Daily Living and IADL's Independent with all needs and shared IADl needs with her son who lives with her. Social History Household Members children Living Arrangements House Number of Floors (Floors) One Floor Number of Stairs To Enter/Railing? 4steps B rails landing and another 4 steps with B rails to enter the house Home Environment Standard Height Toilet,Tub/ Shower Home Equipment Front Wheel Walker,Raised Toilet Seat Without Armrests, Shower Seat with Backrest,Hand Held Shower,Grab Bars In Shower Additional Social History Comment pt lives with her son M2 OT-IP Current Condition Start: 06/01/24 09:25 Freq: Status: Active Protocol: Document 06/01/24 09:25 [facility] (Rec: 06/01/24 09:37 [facility] [id number]) Occupational Therapy Current Condition Current Condition Evaluation Date 06/01/24 Treatment Diagnosis UTI/SELENA, generalized weakness Diagnosis Onset Date 05/26/24 M3 OT- IP Subjective and Pain Start: 06/01/24 09:25 Freq: Status: Active Protocol: Document 06/01/24 09:25 [facility] (Rec: 06/01/24 09:37 [facility] [id number]) OT- Subjective Occupational Therapy Visit Type Type Initial Evaluation Visit Start Time 09:10 Visit Stop Time 09:30 Occupational Therapy Visit Comments Patient Comments Pt agreed to get up and brush her teeth. Pt having chest discomfort but when offering to call the nurse, pt refused and states that she is fine. Patient/Caregiver Goals To go home. To notify pt's nurse. OT Pain Assessment Pain When Pain Assessed At Rest Pain Present Pain Present Pain Reported Location Chest Pain Behaviors Facial Grimacing,Holding Area M4 OT- IP ADL's Start: 06/01/24 09:25 Freq: Status: Active Protocol: Document 06/01/24 09:25 [facility] (Rec: 06/01/24 09:37 [facility] [id number]) OT ADL-Grooming General Evaluation Grooming Ability Independent OT ADL-Oral Care General Eval Oral Care Ability Independent OT ADL-Dressing Comments OT Dressing Comments Not performed. OT ADL-Bathing Comments OT Bathing Comments Pt states lately has just sponged off due to being too tired. Pt would benefit from a shower aid. M5 OT- IP IADL's Start: 06/01/24 09:25 Freq: Status: Active Protocol: Document 06/01/24 09:25 [facility] (Rec: 06/01/24 09:37 [facility] [id number]) OT-Instrumental Activities of Daily Living Deficits IADL Deficits Identified Deficits Home Safety Awareness Awareness of Need for Assistance at Home Good Awareness Ability to Problem Solve Emergency Able to Problem Solve Situations Medication Management Medication Management No Deficits Identified Meal Preparation Meal Preparation Caregiver Provides Assist Medical Liaison Medical Liaison Caregiver Provides Assist M6 OT- IP Functional Cognition Start: 06/01/24 09:25 Freq: Status: Active Protocol: Document 06/01/24 09:25 [facility] (Rec: 06/01/24 09:37 [facility] [id number]) Cognitive Factors Limiting Selfcare Function Cognitive Ability Level of Alertness Alert Patient Orientation Name,Age,Birthday,Month,Date, Year,Day of Week,Place, Situation Attention Span Ability Capable of Focused Attention, Capable of Sustained Attention Ability to Follow Commands Able to Follow One Step Commands Cognitive Comments Cognitive Assessment Comments Pt intact and mainly just needing vc to use her hands to push up form surfaces when coming to stand to the FWW. OT- Vision and Hearing OT- Hearing Assessment OT- Hearing Assessment WFL OT- Vision Assessment Visual Acuity Glasses For Reading Occular Pursuits WFL Visual Convergence WFL M7 OT- IP Mobility and Balance Start: 06/01/24 09:25 Freq: Status: Active Protocol: Document 06/01/24: [facility] (Rec: 06/01/24 09:37 [facility] [id number]) OT- Bed Mobility Assessment Supine to Sit Supine to Sit Assist Standby Assistance OT-Transfer Assessment Sit to and From Stand Sit to and from Stand Minimal Assistance,Moderate Assistance Transfers Transfer Ability Contact Guard Assistance Technique Transfer Destination Bed,Chair Devices Transfer Assistive Devices Gait Belt,Front Wheeled Walker Comments Mobility Comments Pt able to get herself to the edge of the bed with increased time. ALISA to stand from higher bed and will need more assist to stand from lower surfaces. OT- Balance Assessment Sitting Balance and Reactions Static Sitting Balance Ability Good Dynamic Sitting Balance Ability Fair Standing Balance and Reactions Static Standing Balance Ability Fair Dynamic Standing Balance Ability Fair M8 OT- IP Objective Assessments Start: 06/01/24 09:25 Freq: Status: Active Protocol: Document 06/01/24:25 [facility] (Rec: 06/01/24 09:37 [facility] [id number]) OT Gross Range of Motion Upper Extremity Range of Motion Assessment Within Functional Limits OT Strength Upper Extremity Strength Assessment Bilaterally Impaired Comments Strength Comments BUE 3+/5 to 4-/5 OT Sensation Assessment Edema Edema Comments LLE much more swollen then her RLE. M9 OT- IP Assessment and Plan Start: 06/01/24:25 Freq: Status: Active Protocol: Document 06/01/24:25 [facility] (Rec: 06/01/24 09:37 [facility] [id number]) OT Summary Assessment and Plan Potential Rehabilitation Potential Good Analytic Complexity at Evaluation Moderate Summary OT Impairments Pain,Strength,Balance, Functional Mobility,Dressing, Toileting,Bathing,Toilet Transfers,Shower Transfers, Activity Tolerance Progress Towards Goals Progressing Toward Goals,Slow Progress due to Medical Issues ,Slow Progress due to Activity Tolerance Assessment Summary Pt mod complexity and main barriers are steps, pain, decreased activity tolerance and needing assist to stand from lower surfaces. Pt to go home with 24/7 assist available and home health including shower aid when medically stable. Goals Grooming Goal Independent Dressing Goal Independent Toileting Goal Independent Bathing Goal Standby Assistance Toilet Transfer Goal Independent Shower Transfer Goal Contact Guard Assistance Days to Meet Goals 10 Frequency of Treatment Other frequency 5x/week Treatment Plan OT Treatment Plan ADL Training,Functional Mobility,Patient/Family Education,Discharge Planning Other Treatment Recommendations and Next ADL endurance, energy Treatment Focus conservation Discharge Recommendations OT Discharge Recommendations Home with 24/7 Assist Available,Home Health Home Equipment Needs tub bench? Transportation Needs at Discharge Private Vehicle
--- NOTE | 2024-06-01 10:40 | DIET.CONS ---
Dietary Consultation Note Admission Date: 05/26/2024 15:20 Assessment: 84 y F admitted for UTI, and now developed right lower quadrant abd pain. Dietitian screened for LOS. Pt with single kidney draining via nephrostomy and colostomy bag at baseline. Met with pt at bedside who reports decreased appetite for 2 weeks before admission to hospital. Usual PO intakes is around 3 normal sized meals per day and snacks as needed. Prepares/cooks food for herself, eats whenever she wants. In 2 weeks before admission reports was only having breakfast and dinner, skipping midday meal. Pt had a banana today at breakfast, felt some nausea after eating. Ordered lunch and will see how much she is able tolerate and granddaugther brought in a bagel. Likes Ensure. Open to idea of Ensures to sip on between meals. Surgery started Reglan to help with pt's nausea and gastric distension. Pt reports weight at PCP in April of this year was 176 lb, weight on Thursday before admission (05/24) at her PCPs was 156 lb. Nutrition focused physical exam performed: mild loss temples and interosseous mild to moderate loss buccal and orbital fat pads Ht: 172.72 cm Wt: 75.5 kg BMI: 25.2 UBW: 80 kg 04/2024 (-5.6% weight loss within 1 month, severe), 93.5 kg on 03/31/23 (-19% loss in >1yr) Last BM: 05/31/24 (05/31/24 06:00) MNA: 14 Kyler Score: 20 Diet: 05/26/24 Dinner Renal Diet Diet Modifications: Food Texture: Level 7 - Regular Liquid Consistency: Level 0 - Thin 05/27/24 Breakfast Heart Healthy Diet Diet Modifications: Nutrition Percent Meal Consumed 0% 06/01/24 08:00 Percent Meal Consumed 100% 05/31/24 17:18 Percent Meal Consumed 75% 05/30/24 17:28 Percent Meal Consumed 35 05/30/24 12:39 Labs: RBC 3.08 X10^6/uL (4.0-5.2) L 06/01/24 04:30 Hgb 8.1 g/dL (12.0-16.0) L 06/01/24 04:30 Hct 25.3 % (36-46) L 06/01/24 04:30 Creatinine 1.78 mg/dL (0.52-1.04) H 06/01/24 04:30 Nutrition Diagnosis: Moderate acute Protein Calorie Malnutrition r/t inadequate oral intake as evidenced by <75% of estimated energy intake for 2 weeks per diet recall, 5.5% weight loss within 1 month (severe), mild muscle mass loss (temples, interosseous) mild subcutaneous fat loss (buccal and orbital fat pads) Interventions: Discussed small freq meals as tolerated Ensure Original BID EER: 1700 kcals (23 kcals/kg per BMI) 50 g protein (renal) Monitoring/Evaluations: ONS tolerance, PO intake tolerance Electronically Signed by: Bailey Lira 06/01/24 10:40 Clinical Dietitian [address] [id number]
--- NOTE | 2024-06-01 11:07 | P.PN_ITS ---
Subjective Subjective Date Patient Seen: 06/01/24 Time Patient Seen: 11:07 Interval history: No acute events overnight. Patient was able to tolerate a banana this morning. Was seen by Dietitian this a.m.. Reports increased ostomy output. Denies any nausea today. Reports a right lower quadrant abdominal pain is improved. Exam Vital Signs (past 8 hours): - 06/01/24 04:55 06/01/24 08:00 Temperature 97.0 F L 97.3 F L Pulse Rate 57 L 62 Respiratory Rate 16 17 Blood Pressure 133/45 L 140/54 L Pulse Oximetry 98 99 Oxygen Flow Rate 0 0 Fraction of Inspired Oxygen 21 SaO2/FiO2 Ratio 476 Oxygen Delivery Method Room Air Oxygen Flow Rate 0 Narrative Exam Narrative: Const Other: well developed well nourished Resp Other: No respiratory distress, no audible wheezing Cardio Other: No chest pain, mild left pedal edema GI Other: Soft, nondistended, improved right lower quadrant tenderness to palpation, minimal pannus cellulitis, non distended multiple hernias with large parastomal hernia surrounding the left lower quadrant colostomy. Stool in the bag. Colostomy appears pink and viable. No tenderness to palpation noted surrounding the large peristomal hernia and the colostomy site. Other: draining clear yellow urine via L sided nephrostomy with no surrounding erythema Neuro Other: alert awake oriented x3 moving all limbs requires assist to mobilize Objective Labs 06/01/24 04:30 06/01/24 04:30 Labs: Laboratory Results - last 24 hr 06/01/24 04:30 WBC 7.2 RBC 3.08 L Hgb 8.1 L Hct 25.3 L MCV 82.0 MCH 26.3 MCHC 32.1 RDW 16.7 H Plt Count 267 Neut % (Auto) 73.1 Lymph % (Auto) 14.6 L [place] % (Auto) 5.6 Eos % (Auto) 6.1 H Baso % (Auto) 0.6 Neut # (Auto) 5300 Lymph # (Auto) 1000 L [place] # (Auto) 400 Eos # (Auto) 400 Baso # (Auto) 0 Sodium 140 Potassium 3.9 Chloride 116 H Carbon Dioxide 14 L BUN 23 H Creatinine 1.78 H Estimated GFR 28 L BUN/Creatinine Ratio 12.9 Glucose 88 Calcium 9.1 Total Bilirubin < 0.1 L AST 11 L ALT 8 Alkaline Phosphatase 95 Total Protein 6.3 Albumin 2.6 L Globulin 3.7 Albumin/Globulin Ratio 0.7 L PFSH Medical History Hx of fracture of femur Hx of deep venous thrombosis Hx of primary hypertension Hx of gastroesophageal reflux (GERD) History of COPD Hx of renal cell cancer Gout Chronic UTI Arthritis Pulmonary embolism Unspecified essential hypertension Colitis with rectal bleeding Peristomal skin complication Lumbar hernia Retained urethral stent S/p nephrectomy Anticoagulated Chronic renal disease, stage 3, moderately decreased glomerular filtration rate (GFR) between 30-59 mL/min/1.73 square meter Colostomy in place Leg swelling Easy bruisability Rectal carcinoma Port-A-Cath in place Neuropathy Incontinence Allergic reaction 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 Abnormal mammogram of right breast Parastomal hernia 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 Rectal cancer Surgical History History of ureter stent H/O nephrostomy H/O lithotripsy History of low anterior resection of rectum Family History Mother Hypertension Cancer Son Hypertension Grandfather Heart disease Cancer Granddaughter Eczema Social History marital status: number of children: 1 household members: children lives independently: Yes occupational status: previously employed and other Smoking Status: Current some day smoker Tobacco: How many years used: 60 alcohol intake: current substance use type: does not use caffeine: Yes Type(s) of exercise: none Assessment & Plan Assessment and plan (1) Cellulitis: Qualifiers: Site of cellulitis: trunk Site of cellulitis of trunk: abdominal wall Qualified Code(s): L03.311 - Cellulitis of abdominal wall Status: Acute (2) Acute kidney injury: Status: Acute (3) Parastomal hernia 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: Problem details: enlarging parastomal and ventral hernias Status: Inactive Assessment & Plan narrative: This 84-year-old woman with multiple comorbidities who presented for a Pseudomonas urinary tract infection in the setting of having a left nephrostomy tube who suddenly began to have right lower quadrant abdominal pain. Patient was found to have right lower quadrant cellulitis. Cellulitis has improved overnight with initiation of vancomycin. Can not rule out that there is any underlying bowel pathology as patient has a complex abdomen with multiple hernias containing bowel which are near the cellulitis site. -recommend to continue cefepime for urinary tract infection and continue vancomycin for cellulitis. -continue Reglan for patient's nausea and gastric distention. Appreciate dietitian recommendations -encourage mobility and out of bed -monitor ostomy output for dehydration -continue maintenance IV fluid -we will continue to follow Time-Based Coding :: 15 minutes spent with patient and on the chart (including review of chart, obtaining history, exam, reviewing outside data, placing orders, documenting exam and treatment plan, and counseling patient) on June 01, 2024 Quality VTE Deep Vein Thrombosis/Pulmonary Embolism Present on Admission: No PROFEE Document Restorer Document charge(s): Yes Charge Codes Subsequent inpatient/observation care: [id number]
--- NOTE | 2024-06-01 11:45 | PT.IPTN ---
Current Diagnoses Parastomal hernia 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 (05/26/24) Cellulitis of abdominal wall (05/26/24) Cellulitis, unspecified (05/26/24) Acute kidney failure, unspecified (05/26/24) Urinary tract infection, site not specified (05/26/24) Physical Therapy Treatment Note M2 PT-IP Current Condition Start: 05/31/24 13:29 Freq: NEEDED Status: Active Protocol: Document 05/31/24 09:55 AB (Rec: 05/31/24 13:44 AB [id number]) Physical Therapy Current Condition Current Condition Evaluation Date 05/31/24 Treatment Diagnosis UTI; SELENA; difficulty in walking Onset Date 05/26/24 M3 PT-IP Subjective Start: 05/31/24 13:29 Freq: NEEDED Status: Active Protocol: Document 06/01/24 11:45 AB (Rec: 06/01/24 13:48 AB [id number]) Subjective Physical Therapy Visit Type Type Treatment Note Visit Start Time 11:45 Visit Stop Time 13:15 Notes pt seen for split visits: 1145 am to 1155 am and 1250 to 1315 Number of PEDIATRIC SPEECH LANGUAGE PATHOLOGIST Visits 0 Physical Therapy Visit Comments Patient Comments agreeable to do PT M4 PT-IP Mobility and Gait Start: 05/31/24 13:29 Freq: NEEDED Status: Active Protocol: Document 06/01/24 11:45 AB (Rec: 06/01/24 13:48 AB [id number]) PT-Bed Mobility Assessment Supine to Sit Supine to Sit Standby Assistance Sit to Supine Sit to Supine Maximum Assistance,1 Person Assistance,Head of Bed Elevated PT-Transfer Assessment Sit to and From Stand Sit to and from Stand Moderate Assistance,Maximum Assistance,1 Person Assistance ,Use of Upper Extremities Equipment Transfer Assistive Device Gait Belt,Front Wheeled Walker Orthotic/Prosthetic Devices or Brace: No Transfers Transfer Destination Chair Transfer Technique Stand Step Pivot Transfer Ability Level of Assist Moderate Assistance,1 Person Assistance,Use of Upper Extremities Comments Mobility Comments pt in bed and agreeable to do PT. pt completed supine to sit SBA. able to sit on EOB SBA. lunch tray came and pt wants to eat first. pt agreed to get up on chair for lunch. sit to stand from EOB mod A and cues and step transfer to chair mod A. position pt on the chair. set up lunch tray. call light and table placed within reach. Checked back on pt after lunch . agreed to do PT. sit to stand from chair mod A to max A and max cues x 2 attempts to complete. ambulated in room using FWW ~ 40ft min A and cues. c/o lightheadedness towards end of ambulation. pt requested to go back to bed. pt sat on EOB SBA. BP checked sitting on EOB: 133/76. sit to supine max A and cues. pt needed assistance with BLE elevation to bed. positioned pt in bed. call light and table placed within reach. Gait Assessment Gait Gait Assistance Required: Minimum Assistance Distance (Feet) 40 Able to Maintain Weight Bearing Status Yes During Gait Assistive Devices Assistive Device Gait Belt,Front Wheeled Walker Orthotic/Prosthetic Devices or Brace: No Gait Deviations General Gait Pattern Decreased Stride Length, Decreased Feet Clearance Factors Limiting Gait Function Factors Limiting Gait Function Decreased Activity Tolerance, Decreased Strength,Difficulty Following Directions,Limited Range of Motion,Pain,Poor Balance,Poor Safety Awareness M5 PT-IP Objective Assessments Start: 05/31/24 13:29 Freq: NEEDED Status: Active Protocol: Document 05/31/24 09:55 AB (Rec: 05/31/24 13:44 AB [id number]) Orientation Orientation/Cognition Level of Alertness Alert Orientation Name,Place,Situation Language Function Ability No Deficits Noted Safety Awareness Decreased Safety Awareness Memory Description No Deficits Noted Gross Range of Motion Lower Extremity ROM Assessment Within Functional Limits Strength Lower Extremity Strength Assessment Left Impaired Hip 3-/5 Knee 3+/5 Sensation Assessment Sensation Gross Sensation Right LE Impaired,Left LE Impaired Sensation Description Numbness Comments Sensation Comments BLE neuropathy Muscle Tone Muscle Tone WNL Yes M6 PT-IP Treatment Start: 05/31/24 13:29 Freq: NEEDED Status: Active Protocol: Document 06/01/24 11:45 AB (Rec: 06/01/24 13:48 AB [id number]) Physical Therapy Treatment Education Education Provided Safety M7 PT-IP Assessment and Plan Start: 05/31/24 13:29 Freq: NEEDED Status: Active Protocol: Document 06/01/24 11:45 AB (Rec: 06/01/24 13:48 AB [id number]) PT Summary Assessment and Plan Potential Rehabilitation Potential Fair Summary Impairments Pain,ROM,Strength,Balance, Coordination,Sensation,Bed Mobility,Transfers,Gait, Activity Tolerance Progress Towards Goals Slow Progress due to Medical Issues,Slow Progress due to Activity Tolerance Assessment Summary pt continues to have decrease activity tolerance affecting level of assistance. pt requiring mod to max A for sit to tand and min A for ambulation usng FWW but only tolerated ~ 40 ft. pt stated that son will be able to assist her. pt will require 24/7 assist. Goals Bed Mobility Goal Independent Transfer Goal Standby Assistance,Front Wheeled Walker Gait Goal Standby Assistance,Front Wheel Walker Gait Distance 100 Other Goals up/down 5 steps B rail SBA Days to Meet Goals 10 Frequency of Treatment Frequency Of Treatment Once a Day Treatment Plan Physical Therapy Treatment Plan Bed Mobility Training,Transfer Training,Gait Training, Therapeutic Exercise,Balance Retraining,Discharge Planning, Hot or Cold Pack,Neuromuscular Re-ed,Coordination Retraining ,Manual Therapy Precautions Other Precautions falls, ostomy and nephrostomy bags Recommendations To Nursing Amount of Assist Needed 1 Person Assist Discharge Recommendations PT Discharge Recommendations Home with 24/7 Assist Available,Home Health,SNF Rehab Transportation Needs at Discharge Private Vehicle,Wheelchair/ Cabulance - PT assist mod to max A x 1
[2024-06-01] MEDS: NYSTATIN POWDER 15GM 1 APPLIC TOP ×2 (13:01→18:16)
[2024-06-01 16:00] VITALS: BP 142/52; PULSE 65; O2SAT 99
[2024-06-01] MEDS: AMLODIPINE 5 MG TABLET PO (18:03)
[2024-06-01] MEDS: CEFEPIME 0.5 GM in SODIUM CHLORIDE 0.9% 100 ML IV (18:03)
--- NOTE | 2024-06-01 18:11 | PM.PN.1 ---
Subjective Subjective Date Patient Seen: 06/01/24 Time Patient Seen: 18:11 Interval history: Patient seen in [facility] for Dr. Grover Patient with unremarkable night. Patient did lose IV access and has been without an IV for at least 12 hours. Patient is eating more. She does still get nausea with eating but is having less nausea and no vomiting. Patient is still having right lower quadrant pain but it seems this is improved. Patient was started on Reglan 5 mg orally 4 times a day yesterday. She underwent a CT scan which is suspicious for infection right lower quadrant of unknown source and was started on vancomycin per surgery. Possibly improved with this intervention. Now having excessive stool output. Patient also having rectal bleeding which he has had for several months and is scheduled for a flexible sigmoidoscopy June 28 through [facility] surgery. Patient is also supposed to be in having consult with regarding her abdominal wall hernias. Patient has been up walking today and sitting in the chair which is significant improvement from the last several days. Exam Vital Signs (past 8 hours): Fraction of Inspired Oxygen 21 SaO2/FiO2 Ratio 476 Oxygen Delivery Method Room Air Oxygen Flow Rate 0 Narrative Exam Narrative: Afebrile vital signs are stable HEENT is unremarkable Neck Is supple Chest: Clear to auscultation without wheezes rhonchi or crackles Cor: Regular rate and rhythm distant S1-S2 Abdomen: Positive bowel sounds. No evidence of inflammation or erythema of the abdominal wall. Patient with Mavis improving infection left lower quadrant under the fold. Massive abdominal hernia Rebekah ostomy and ventral encompassing right lower quadrant as well. Patient with tenderness focal in the right lower quadrant but unable to feel a mass and no evidence of overlying cellulitis or skin infection. Colostomy bag in place Nephrostomy bag in place Extremities no edema pulses intact Objective Labs 06/01/24 04:30 06/01/24 04:30 Labs: Laboratory Results - last 24 hr 05/26/24 06/01/24 14:11 04:30 WBC 7.2 RBC 3.08 L Hgb 8.1 L Hct 25.3 L MCV 82.0 MCH 26.3 MCHC 32.1 RDW 16.7 H Plt Count 267 Neut % (Auto) 73.1 Lymph % (Auto) 14.6 L [place] % (Auto) 5.6 Eos % (Auto) 6.1 H Baso % (Auto) 0.6 Neut # (Auto) 5300 Lymph # (Auto) 1000 L [place] # (Auto) 400 Eos # (Auto) 400 Baso # (Auto) 0 Sodium 140 Potassium 3.9 Chloride 116 H Carbon Dioxide 14 L BUN 23 H Creatinine 1.78 H Estimated GFR 28 L BUN/Creatinine Ratio 12.9 Glucose 88 Calcium 9.1 Total Bilirubin < 0.1 L AST 11 L ALT 8 Alkaline Phosphatase 95 Total Protein 6.3 Albumin 2.6 L Globulin 3.7 Albumin/Globulin Ratio 0.7 L Ref Test (Refrig) Comment [facility] Medical History Hx of fracture of femur Hx of deep venous thrombosis Hx of primary hypertension Hx of gastroesophageal reflux (GERD) History of COPD Hx of renal cell cancer Gout Chronic UTI Arthritis Pulmonary embolism Unspecified essential hypertension Colitis with rectal bleeding Peristomal skin complication Lumbar hernia Retained urethral stent S/p nephrectomy Anticoagulated Chronic renal disease, stage 3, moderately decreased glomerular filtration rate (GFR) between 30-59 mL/min/1.73 square meter [address]ostomy in place Leg swelling Easy bruisability Rectal carcinoma Port-A-Cath in place Neuropathy Incontinence Allergic reaction 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 Abnormal mammogram of right breast Parastomal hernia 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 Rectal cancer Surgical History History of ureter stent H/O nephrostomy H/O lithotripsy History of low anterior resection of rectum Family History Mother Hypertension Cancer Son Hypertension Grandfather Heart disease Cancer Granddaughter Eczema Social History marital status: number of children: 1 household members: children lives independently: Yes occupational status: previously employed and other Smoking Status: Current some day smoker Tobacco: How many years used: 60 alcohol intake: current substance use type: does not use caffeine: Yes Type(s) of exercise: none Assessment & Plan Assessment & Plan narrative: 84-year-old female with history of renal cell carcinoma and 1 kidney and nephrostomy tube in that kidney and distal colon cancer with colostomy bag admitted for diarrheal illness with acute on chronic renal failure and dehydration. Improving with IV hydration and IV antibiotics assessment 1. UTI improving with ceftriaxone. Culture showed Pseudomonas. Patient was switched to cefepime on 05/28/2024. Per pharmacy dosing. I do not think this is contributing to her abdominal pain but certainly must consider this. plan: Continue with the same cefepime. assessment 2. Acute on chronic renal failure improving. Moving toward baseline. Continues to improve. Will continue current treatment. Continue with same half-normal saline IV fluid. Recheck labs in a.m.. assessment 3. Hypokalemia, resolved. Will continue to monitor assessment 4. Hyperchloremia initially improved with changing from normal saline to half-normal saline still persisting. Unclear etiology plan: Continue with half-normal saline. Patient did not receive any IV fluid today. She was taking in p.o. fairly well but we will continue with the half normal saline recheck in a.m. assessment 5. Diarrheal illness with suspicion of norovirus but reviewed stool studies which show enteropathic E coli. At this point patient is improved she has having no more diarrhea. She has no fever no leukocytosis and clinically is improving so we will continue with supportive care. If her condition worsens we will treat with antibiotic directed to treatment of ETEC E coli which would be azithromycin, Septra or Cipro. assessment 6. Anemia normocytic, chronic suspect due to chronic medical illness and worsened with IV hydration. No evidence of acute blood loss plan: Will follow and continue workup as outpatient assessment 7. History of PE AFib on chronic anticoagulant plan: Continue with the same Eliquis assessment 8. Hypertension. Well-controlled plan: Continue with same outpatient medications Assessment 9. Crampy abdominal pain. Overall improved. Unclear if this is related to initiation of Reglan, time or initiation of vancomycin. Will continue all the same but due to her large amount of stool output we will decrease Reglan to twice daily Assessment 10. Normocytic anemia chronic suspect multifactorial chronic disease possible ongoing blood loss given history of blood from rectum. Will do iron studies. There is mention in Dr. Grover's note about giving iron unclear if this was an iron infusion or if this was packed red blood cells and patient states she received it but I do not see documentation so we will check iron studies and treat as indicated Assessment 11. History of rectal carcinoma 2016, stage III, resection and radiation and previous history in 2019 of ulcer at the anastomosis. Wonder if this is ongoing. Patient is scheduled for a flexible sigmoidoscopy as an outpatient. We will continue to follow. At this point would not want to do this while patient acutely infected but pending how she does we may need to do this. Assessment 12. Right lower quadrant pain. Reviewed CT findings. Exam unchanged from my exam on Thursday. Still with pain very focal right lower quadrant. Unclear if this is due to the worsening hernias or new problem. Patient is on IV vancomycin per surgery. Appreciate surgical input. disposition plan home when stable likely Thursday. Patient still needs inpatient hospitalization due to above. Patient progressing to baseline but not at baseline 55 minutes spent with patient reviewing chart meeting with patient discussing with nursing and pharmacy, formulating a plan and documentation Time-Based Coding :: [TOTAL MINUTES] spent with patient and on the chart (including review of chart, obtaining history, exam, reviewing outside data, placing orders, documenting exam and treatment plan, and counseling patient) on [DATE]. Quality VTE Deep Vein Thrombosis/Pulmonary Embolism Present on Admission: No
[2024-06-01] MEDS: LATANOPROST 0.005% OPHTH 2.5 ML 1 DROPS EYE-BOTH (20:29)
[2024-06-01 21:00] VITALS: BP 155/50; PULSE 72; RESP 16; TEMP 36.2; O2SAT 98
[2024-06-01] MEDS: SODIUM CHLORIDE 0.45% 1,000 ML 100 ML IV (22:01)
--- NOTE | 2024-06-02 01:53 | PC.NURSE ---
alert,oriented x4, calm, cooperative. received pt w/ midline in place on L upper arm, dressing intact, w/ scant dried blood noted, IVF infusing per order, no swelling on L arm noted. colostomy 2 piece intact, watery/liquid stool noted, Nephrostomy on L flank w/ cloudy yellow urine noted, see I&O flowsheet. pt able to turn/reposition in bed. bed alarm for safety, encouraged to use call light for assistance.
[2024-06-02 05:00] VITALS: BP 138/51; PULSE 64; RESP 18; TEMP 35.9; O2SAT 97
[2024-06-02 05:48] LABS: Add Manual Diff / Slide Review NO; Basophils Absolute Auto 0 /uL (0-100); Basophils Percent Auto 0.6 % (0-2); Eosinophils Absolute Auto 500 /uL (0-450); Eosinophils Percent Auto 7.9 % (2-4); Hematocrit 23.7 % (36-46); Hemoglobin 7.8 g/dL (12.0-16.0); Lymphocytes Absolute Auto 1200 /uL (1100-4500); Lymphocytes Percent Auto 18.3 % (25-40); Mean Corpuscular HGB Conc 32.9 % (30-36); Mean Corpuscular Hemoglobin 26.5 PG (26-34); Mean Corpuscular Volume 80.7 fL (80-100); Monocytes Absolute Auto 400 /uL (0-900); Monocytes Percent Auto 6.2 % (3-14); Neutrophils Absolute Auto 4200 /uL (1500-7000); Platelet Count 259 X10^3/uL (150-400); Red Blood Cell Count 2.94 X10^6/uL (4.0-5.2); Red Cell Distribution Width 16.2 % (11.6-14.8); White Blood Cell Count 6.3 X10^3/uL (4.5-11.0)
[2024-06-02 06:02] LABS: HEMOLYSIS < 15 (0-50); Iron 40 ug/dL (37-170)
[2024-06-02 06:03] LABS: Alanine Aminotransferase 8 IU/L (<35); Albumin 2.6 g/dL (3.5-5.0); Albumin Globulin Ratio 0.7 (1.0-2.8); Alkaline Phosphatase 100 U/L (38-126); Aspartate Aminotransferase 11 IU/L (14-36); BUN Creatinine Ratio 12.3 (6-22); Bilirubin Total 0.2 mg/dL (0.2-1.3); Blood Urea Nitrogen 20 mg/dL (7-17); Carbon Dioxide 12 mmol/L (22-32); Chloride 119 mmol/L (98-107); Estimated Glomerular Filt Rate 32 mL/min (>60); Globulin 3.6 g/dL (1.7-4.1); Glucose 87 mg/dL (80-110); HEMOLYSIS < 15 (0-50); Potassium 3.9 mmol/L (3.4-5.1); Sodium 140 mmol/L (137-145); Total Protein 6.2 g/dL (6.3-8.2)
[2024-06-02 06:13] LABS: Percent Iron Saturation 20 % (15-50); Total Iron Binding Capacity 198 ug/dL (265-497); Transferrin 138 mg/dL (206-381)
[2024-06-02 06:38] LABS: Ferritin 64 ng/mL (11-264)
[2024-06-02] MEDS: SODIUM CHLORIDE 0.45% 1,000 ML 100 ML IV (07:09)
[2024-06-02] MEDS: METOPROLOL IR 25 MG TABLET 12.5 MG PO ×2 (08:22→22:50)
[2024-06-02] MEDS: APIXABAN 5 MG TABLET 2.5 MG PO ×2 (08:22→21:50)
[2024-06-02] MEDS: ONDANSETRON 4 MG/2 ML INJ IV (08:23)
[2024-06-02] MEDS: VANCOMYCIN HCL 750 MG in SODIUM CHLORIDE 0.9% 250 ML 250 MG IV (08:23)
--- NOTE | 2024-06-02 09:36 | OT.IP.TRT ---
Current Diagnoses Parastomal hernia 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 (05/26/24) Cellulitis of abdominal wall (05/26/24) Cellulitis, unspecified (05/26/24) Acute kidney failure, unspecified (05/26/24) Urinary tract infection, site not specified (05/26/24) Occupational Therapy Treatment Note M2 OT-IP Current Condition Start: 06/01/24 09:25 Freq: Status: Active Protocol: Document 06/01/24 09:25 [facility] (Rec: 06/01/24 09:37 [facility] [id number]) Occupational Therapy Current Condition Current Condition Evaluation Date 06/01/24 Treatment Diagnosis UTI/SELENA, generalized weakness Diagnosis Onset Date 05/26/24 M3 OT- IP Subjective and Pain Start: 06/01/24 09:25 Freq: Status: Active Protocol: Document 06/02/24 09:35 [facility] (Rec: 06/02/24 09:39 [facility] [id number]) OT- Subjective Occupational Therapy Visit Type Type Treatment Note Visit Start Time 09:25 Visit Stop Time 09:36 Occupational Therapy Visit Comments Patient Comments Pt too tired to get up at this time , but agreed to go over energy conservation needs. Patient/Caregiver Goals TO go home. OT Pain Assessment Pain When Pain Assessed At Rest Pain Present Pain Present Pain Reported Location Right Lower Abdomen Pain Behaviors Facial Grimacing,Holding Area M4 OT- IP ADL's Start: 06/01/24 09:25 Freq: Status: Active Protocol: Document 06/01/24 09:25 [facility] (Rec: 06/01/24 09:37 [facility] [id number]) OT ADL-Grooming General Evaluation Grooming Ability Independent OT ADL-Oral Care General Eval Oral Care Ability Independent OT ADL-Dressing Comments OT Dressing Comments Not performed. OT ADL-Bathing Comments OT Bathing Comments Pt states lately has just sponged off due to being too tired. Pt would benefit from a shower aid. M5 OT- IP IADL's Start: 06/01/24 09:25 Freq: Status: Active Protocol: Document 06/01/24 09:25 [facility] (Rec: 06/01/24 09:37 [facility] [id number]) OT-Instrumental Activities of Daily Living Deficits IADL Deficits Identified Deficits Home Safety Awareness Awareness of Need for Assistance at Home Good Awareness Ability to Problem Solve Emergency Able to Problem Solve Situations Medication Management Medication Management No Deficits Identified Meal Preparation Meal Preparation Caregiver Provides Assist Files Supervisor Files Supervisor Caregiver Provides Assist M6 OT- IP Functional Cognition Start: 06/01/24 09:25 Freq: Status: Active Protocol: Document 06/01/24 09:25 [facility] (Rec: 06/01/24 09:37 [facility] [id number]) Cognitive Factors Limiting Selfcare Function Cognitive Ability Level of Alertness Alert Patient Orientation Name,Age,Birthday,Month,Date, Year,Day of Week,Place, Situation Attention Span Ability Capable of Focused Attention, Capable of Sustained Attention Ability to Follow Commands Able to Follow One Step Commands Cognitive Comments Cognitive Assessment Comments Pt intact and mainly just needing vc to use her hands to push up form surfaces when coming to stand to the FWW. OT- Vision and Hearing OT- Hearing Assessment OT- Hearing Assessment WFL OT- Vision Assessment Visual Acuity Glasses For Reading Occular Pursuits WFL Visual Convergence WFL M7 OT- IP Mobility and Balance Start: 06/01/24 09:25 Freq: Status: Active Protocol: Document 06/01/24 09:25 [facility] (Rec: 06/01/24 09:37 [facility] [id number]) OT- Bed Mobility Assessment Supine to Sit Supine to Sit Assist Standby Assistance OT-Transfer Assessment Sit to and From Stand Sit to and from Stand Minimal Assistance,Moderate Assistance Transfers Transfer Ability Contact Guard Assistance Technique Transfer Destination Bed,Chair Devices Transfer Assistive Devices Gait Belt,Front Wheeled Walker Comments Mobility Comments Pt able to get herself to the edge of the bed with increased time. ALISA to stand from higher bed and will need more assist to stand from lower surfaces. OT- Balance Assessment Sitting Balance and Reactions Static Sitting Balance Ability Good Dynamic Sitting Balance Ability Fair Standing Balance and Reactions Static Standing Balance Ability Fair Dynamic Standing Balance Ability Fair M8 OT- IP Objective Assessments Start: 06/01/24 09:25 Freq: Status: Active Protocol: Document 06/01/24 09:25 [facility] (Rec: 06/01/24 09:37 [facility] [id number]) OT Gross Range of Motion Upper Extremity Range of Motion Assessment Within Functional Limits OT Strength Upper Extremity Strength Assessment Bilaterally Impaired Comments Strength Comments BUE 3+/5 to 4-/5 OT Sensation Assessment Edema Edema Comments LLE much more swollen then her RLE. M9 OT- IP Assessment and Plan Start: 06/01/24 09:25 Freq: Status: Active Protocol: Document 06/02/24 09:35 [facility] (Rec: 06/02/24 09:39 [facility] [id number]) OT Summary Assessment and Plan Potential Rehabilitation Potential Good Analytic Complexity at Evaluation Moderate Summary OT Impairments Pain,Strength,Balance, Functional Mobility,Dressing, Toileting,Bathing,Toilet Transfers,Shower Transfers, Activity Tolerance Progress Towards Goals Slow Progress due to Medical Issues,Slow Progress due to Activity Tolerance Assessment Summary Able to go over energy conservation needs with pt. Pt insistent that she will be fine to go home and be able to do the steps to get into the house. Pt states her son will not want go assist her for showering needs and therefore would benefit from home health shower aid. Pending progress, pt to go home with 24/7 assist versus skilled rehab. Goals Grooming Goal Independent Dressing Goal Independent Toileting Goal Independent Bathing Goal Standby Assistance Toilet Transfer Goal Independent Shower Transfer Goal Contact Guard Assistance Days to Meet Goals 15 Frequency of Treatment Other frequency 5x/week Treatment Plan OT Treatment Plan ADL Training,Functional Mobility,Patient/Family Education,Discharge Planning Other Treatment Recommendations and Next ADL endurance Treatment Focus Discharge Recommendations OT Discharge Recommendations Home with 24/7 Assist Available,Home Health,SNF Rehab Home Equipment Needs tub bench? Transportation Needs at Discharge Private Vehicle,Wheelchair/ Cabulance
--- NOTE | 2024-06-02 10:14 | CM.DPC ---
DCP Cont. Reviewed EMR and team rounds for status updates. Per Dr. Hernandez, pt is not quite medically stable for d/c, her H&H is trending down today. Likely she will need another 1-2 days prior to being stable for home. Continuing to monitor for final d/c needs.
--- NOTE | 2024-06-02 11:40 | PT-IP ANOTE ---
PT checks on pt twice. Pt declining OOB to chair with PT and states she will get up with nsg after lunch. Con't PT efforts next date.
--- NOTE | 2024-06-02 11:47 | PM.PN.IH.1 ---
Subjective Subjective Date Patient Seen: 06/02/24 Time Patient Seen: 11:51 Interval history: Patient continues to have poor p.o. intake and right lower quadrant abdominal pain. Patient's Reglan was decreased due to high colostomy output. Output over last 24 hours was 800 mL which is increased from 250 the previous day. Patient rates the right lower quadrant pain approximately 6/10 in nature. Unsure if it is related to the colitis versus the chronic hernia. Exam Vital Signs (past 8 hours): - 06/02/24 05:00 Temperature 96.7 F L Pulse Rate 64 Respiratory Rate 18 Blood Pressure 138/51 L Pulse Oximetry 97 Oxygen Flow Rate 0 Fraction of Inspired Oxygen 21 SaO2/FiO2 Ratio 476 Oxygen Delivery Method Room Air Oxygen Flow Rate 0 Narrative Exam Narrative: Afebrile vital signs are stable HEENT is unremarkable Neck Is supple Chest: No wheezes Cor: No chest pain Abdomen: Soft, mild right lower quadrant is tenderness to palpation, overlying cellulitis and right pannus fold has resolved, No evidence of inflammation or erythema of the abdominal wall. Left lower quadrant colostomy placed with large parastomal hernia, stool/gas in the bag Patient with Mavis improving infection left lower quadrant under the fold. Colostomy bag in place Nephrostomy bag in place Extremities no edema pulses intact Objective Labs 06/02/24 05:00 06/02/24 05:00 Labs: Laboratory Results - last 24 hr 06/02/24 05:00 WBC 6.3 RBC 2.94 L Hgb 7.8 L Hct 23.7 L MCV 80.7 MCH 26.5 MCHC 32.9 RDW 16.2 H Plt Count 259 Neut % (Auto) 67.0 Lymph % (Auto) 18.3 L [place] % (Auto) 6.2 Eos % (Auto) 7.9 H Baso % (Auto) 0.6 Neut # (Auto) 4200 Lymph # (Auto) 1200 [place] # (Auto) 400 Eos # (Auto) 500 H Baso # (Auto) 0 Sodium 140 Potassium 3.9 Chloride 119 H Carbon Dioxide 12 L BUN 20 H Creatinine 1.62 H Estimated GFR 32 L BUN/Creatinine Ratio 12.3 Glucose 87 Calcium 9.0 Iron 40 TIBC 198 L % Saturation 20 Transferrin 138 L Ferritin 64 Total Bilirubin 0.2 AST 11 L ALT 8 Alkaline Phosphatase 100 Total Protein 6.2 L Albumin 2.6 L Globulin 3.6 Albumin/Globulin Ratio 0.7 L PFSH Medical History Hx of fracture of femur Hx of deep venous thrombosis Hx of primary hypertension Hx of gastroesophageal reflux (GERD) History of COPD Hx of renal cell cancer Gout Chronic UTI Arthritis Pulmonary embolism Unspecified essential hypertension Colitis with rectal bleeding Peristomal skin complication Lumbar hernia Retained urethral stent S/p nephrectomy Anticoagulated Chronic renal disease, stage 3, moderately decreased glomerular filtration rate (GFR) between 30-59 mL/min/1.[address] square meter [address]ostomy in place Leg swelling Easy bruisability Rectal carcinoma Port-A-Cath in place Neuropathy Incontinence Allergic reaction 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 Abnormal mammogram of right breast Parastomal hernia 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 Rectal cancer Surgical History History of ureter stent H/O nephrostomy H/O lithotripsy History of low anterior resection of rectum Family History Mother Hypertension Cancer Son Hypertension Grandfather Heart disease Cancer Granddaughter Eczema Social History marital status: number of children: 1 household members: children lives independently: Yes occupational status: previously employed and other Smoking Status: Current some day smoker Tobacco: How many years used: 60 alcohol intake: current substance use type: does not use caffeine: Yes Type(s) of exercise: none Assessment & Plan Assessment and plan (1) Cellulitis: Qualifiers: Site of cellulitis: trunk Site of cellulitis of trunk: abdominal wall Qualified Code(s): L03.311 - Cellulitis of abdominal wall Status: Acute (2) Parastomal hernia 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: Problem details: enlarging parastomal and ventral hernias Status: Inactive (3) Chronic renal disease, stage 3, moderately decreased glomerular filtration rate (GFR) between 30-59 mL/min/1.73 square meter: Problem details: Status: Chronic (4) Colostomy in place: Problem details: stable; loop colostomy that was never taken down after LAR Status: Chronic (5) Ventral hernia: Qualifiers: Obstruction and gangrene presence: 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 Qualified Code(s): K43.9 - Ventral hernia 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 Status: Acute (6) Acute kidney injury: Status: Acute Assessment & Plan narrative: This 84-year-old woman with multiple comorbidities who presented for a Pseudomonas urinary tract infection and SELENA in the setting of having a left nephrostomy tube who suddenly began to have right lower quadrant abdominal pain during this admission. Patient was found to have mild right lower quadrant cellulitis. Cellulitis has improved with vancomycin. Can not rule out that there is any underlying bowel pathology as patient has a complex abdomen with multiple hernias containing bowel which are near the cellulitis site. Patient's pain is likely secondary to chronic large ventral/parastomal hernia -recommend to continue cefepime for urinary tract infection and continue vancomycin for cellulitis. Recommended total of 5 days of treatment for possible presumed MRSA cellulitis. Patient's pain is likely chronic in nature and secondary to her large multiple abdominal wall and lumbar hernias -continue to monitor patient's p.o. intake. Appreciate dietitian recommendations -encourage mobility and out of bed -monitor ostomy output for dehydration -continue maintenance IV fluid -we will continue to follow. Quality VTE Deep Vein Thrombosis/Pulmonary Embolism Present on Admission: No [facility] PROFEE Edi Developer Document charge(s): Yes Charge Codes Subsequent inpatient/observation care: [id number]
[2024-06-02 13:55] VITALS: BP 137/45; PULSE 61; RESP 16; TEMP 36; O2SAT 98
--- NOTE | 2024-06-02 16:49 | P.PN_ITS ---
Subjective Subjective Date Patient Seen: 06/02/24 Time Patient Seen: 09:00 Interval history: CC: acute kidney failure Sherlyn reports she is feeling ok today - kidney function continues to improve it is already much better now nearing baseline - cellulitis seem sot be resolving. She is getting up to the bathroom ok - her watery output from colostomy is improved. Exam Vital Signs (past 8 hours): - 06/02/24 13:55 Temperature 96.8 F L Pulse Rate 61 Respiratory Rate 16 Blood Pressure 137/45 L Pulse Oximetry 98 Oxygen Flow Rate 0 Fraction of Inspired Oxygen 21 SaO2/FiO2 Ratio 476 Oxygen Delivery Method Room Air Oxygen Flow Rate 0 Narrative Exam Narrative: well nourished well developed Resp Other: moving air well clear to auscultation bilaterally on room air Cardio Other: regular rhythm s1/s2 minimal pedal edema GI Other: soft nontender colostomy in place no surroudning erythema Other: draining straw clear urine through single L nephrostomy Neuro Other: alert awake fully oriented moving all limbs Objective Labs 06/02/24 05:00 06/02/24 05:00 Labs: Laboratory Results - last 24 hr 06/02/24 05:00 WBC 6.3 RBC 2.94 L Hgb 7.8 L Hct 23.7 L MCV 80.7 MCH 26.5 MCHC 32.9 RDW 16.2 H Plt Count 259 Neut % (Auto) 67.0 Lymph % (Auto) 18.3 L [place] % (Auto) 6.2 Eos % (Auto) 7.9 H Baso % (Auto) 0.6 Neut # (Auto) 4200 Lymph # (Auto) 1200 [place] # (Auto) 400 Eos # (Auto) 500 H Baso # (Auto) 0 Sodium 140 Potassium 3.9 Chloride 119 H Carbon Dioxide 12 L BUN 20 H Creatinine 1.62 H Estimated GFR 32 L BUN/Creatinine Ratio 12.3 Glucose 87 Calcium 9.0 Iron 40 TIBC 198 L % Saturation 20 Transferrin 138 L Ferritin 64 Total Bilirubin 0.2 AST 11 L ALT 8 Alkaline Phosphatase 100 Total Protein 6.2 L Albumin 2.6 L Globulin 3.6 Albumin/Globulin Ratio 0.7 L PFSH Medical History Hx of fracture of femur Hx of deep venous thrombosis Hx of primary hypertension Hx of gastroesophageal reflux (GERD) History of COPD Hx of renal cell cancer Gout Chronic UTI Arthritis Pulmonary embolism Unspecified essential hypertension Colitis with rectal bleeding Peristomal skin complication Lumbar hernia Retained urethral stent S/p nephrectomy Anticoagulated Chronic renal disease, stage 3, moderately decreased glomerular filtration rate (GFR) between 30-59 mL/min/1.73 square meter [address]ostomy in place Leg swelling Easy bruisability Rectal carcinoma Port-A-Cath in place Neuropathy Incontinence Allergic reaction 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 Abnormal mammogram of right breast Parastomal hernia 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 Rectal cancer Surgical History History of ureter stent H/O nephrostomy H/O lithotripsy History of low anterior resection of rectum Family History Mother Hypertension Cancer Son Hypertension Grandfather Heart disease Cancer Granddaughter Eczema Social History marital status: number of children: 1 household members: children lives independently: Yes occupational status: previously employed and other Smoking Status: Current some day smoker Tobacco: How many years used: 60 alcohol intake: current substance use type: does not use caffeine: Yes Type(s) of exercise: none Assessment & Plan Assessment & Plan narrative: 84-year-old female with history of renal cell carcinoma with single remaining kidney draining via nephrostomy and 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 Improving with IV hydration and IV antibiotics #UTI improving with ceftriaxone. Culture showed Pseudomonas. Patient was switched to cefepime on 05/28/2024. Dosing per pharmacy, following along, kidney status improving. #Acute on chronic renal failure Continues to improve with gentle hydration continue to track #Hypokalemia Resolved, monitor #Hyperchloremia persistent, if hydrating use 1/2 NS, track and monitor #Diarrheal illness Stool studies show enteropathic E coli. At this point patient is improved she has having no more diarrhea. She has no fever no leukocytosis and clinically is improving so we will continue with supportive care. If her condition worsens we will treat with antibiotic directed to treatment of ETEC E coli which would be azithromycin, Septra or Cipro. #Normocytic anemia Chronic suspect due to chronic medical illness and dliution 2/2 IV hydration. No evidence of acute blood loss, monitor and encourage po intake. #History of PE/AFib stable continue eliquis #Hypertension controlled continue home meds #Crampy abdominal pain Improved continue reglan daily #Normocytic anemia chronic Agree likely multifactorial chronic disease possible ongoing blood loss given history of blood from rectum. Iron studies are reassuring no need for infusion I think. There is mention in Dr. Grover's note about giving iron unclear if this was an iron infusion or if this was packed red blood cells and patient states she received it but I do not see documentation so we will continue to monitor #History of rectal carcinoma 2016, stage III s/p resection and radiation and previous history in 2019 of ulcer at the anastomosis. Patient is scheduled for a flexible sigmoidoscopy as an outpatient. We will continue to follow. At this point would not want to do this while patient acutely infected but pending how she does we may need to do this. Denies any bloody output today. #Right lower quadrant pain. Reviewed CT findings. Exam unchanged from my exam on Thursday. Still with pain very focal right lower quadrant. Unclear if this is due to the worsening hernias or new problem. Patient is on antibiotics per surgery. Appreciate surgical input. Dispo:plan home when stable likely Thursday. Patient still needs inpatient hospitalization due to above. Patient progressing to baseline but not at baseline PCP: Lenore Code: DNR PCP: balaji Vila Time-Based Coding :: [TOTAL MINUTES] spent with patient and on the chart (including review of chart, obtaining history, exam, reviewing outside data, placing orders, documenting exam and treatment plan, and counseling patient) on [DATE]. Quality VTE Deep Vein Thrombosis/Pulmonary Embolism Present on Admission: No
[2024-06-02] MEDS: CEFEPIME 0.5 GM in SODIUM CHLORIDE 0.9% 100 ML IV (17:09)
[2024-06-02] MEDS: AMLODIPINE 5 MG TABLET PO (17:10)
[2024-06-02 19:33] VITALS: BP 151/49; PULSE 65; RESP 16; TEMP 36.7; O2SAT 97
[2024-06-02] MEDS: LATANOPROST 0.005% OPHTH 2.5 ML 1 DROPS EYE-BOTH (21:50)
[2024-06-03 04:00] VITALS: BP 130/77; PULSE 84; RESP 19; TEMP 36.5; O2SAT 96
[2024-06-03 06:25] LABS: Add Manual Diff / Slide Review NO; Basophils Absolute Auto 100 /uL (0-100); Basophils Percent Auto 1.1 % (0-2); Eosinophils Absolute Auto 500 /uL (0-450); Eosinophils Percent Auto 7.7 % (2-4); Hematocrit 24.2 % (36-46); Lymphocytes Absolute Auto 1100 /uL (1100-4500); Lymphocytes Percent Auto 18.3 % (25-40); Mean Corpuscular HGB Conc 33.2 % (30-36); Mean Corpuscular Hemoglobin 26.7 PG (26-34); Mean Corpuscular Volume 80.5 fL (80-100); Monocytes Absolute Auto 400 /uL (0-900); Monocytes Percent Auto 6.8 % (3-14); Neutrophils Absolute Auto 4000 /uL (1500-7000); Neutrophils Percent Auto 66.1 % (50-75); Platelet Count 250 X10^3/uL (150-400); Red Cell Distribution Width 16.4 % (11.6-14.8); White Blood Cell Count 6.1 X10^3/uL (4.5-11.0)
[2024-06-03 06:54] LABS: BUN Creatinine Ratio 12.2 (6-22); Blood Urea Nitrogen 18 mg/dL (7-17); Calcium 8.9 mg/dL (8.4-10.2); Carbon Dioxide 12 mmol/L (22-32); Chloride 119 mmol/L (98-107); Estimated Glomerular Filt Rate 35 mL/min (>60); Glucose 85 mg/dL (80-110); HEMOLYSIS < 15 (0-50); Potassium 3.9 mmol/L (3.4-5.1); Sodium 140 mmol/L (137-145)
[2024-06-03 08:00] VITALS: BP 147/54; PULSE 56; RESP 18; TEMP 36.2; O2SAT 98
[2024-06-03] MEDS: METOPROLOL IR 25 MG TABLET 12.5 MG PO ×2 (08:21→21:02)
[2024-06-03] MEDS: VANCOMYCIN HCL 750 MG in SODIUM CHLORIDE 0.9% 250 ML 250 MG IV (08:21)
[2024-06-03] MEDS: APIXABAN 5 MG TABLET 2.5 MG PO ×2 (08:21→21:02)
[2024-06-03] MEDS: NYSTATIN POWDER 15GM 1 APPLIC TOP (08:26)
--- NOTE | 2024-06-03 11:20 | CM.DPNOTE ---
DCP Continued: Reviewed EMR and team rounds for pt?s medical status. Per Provider Notes, pt not medically stable for discharge yet; not back at baseline. [facility] ready to resume care at discharge, will need to send resumption orders and dc summary via fax. Plan: Anticipating dc on 06/06 or when medically stable, son will transport home. CM Team will continue to follow for coordination of discharge plans. AUGUSTINE Calle
--- NOTE | 2024-06-03 11:30 | OT.IP.TRT ---
Current Diagnoses Parastomal hernia 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 (05/26/24) Ventral hernia 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 (05/26/24) Cellulitis of abdominal wall (05/26/24) Cellulitis, unspecified (05/26/24) Acute kidney failure, unspecified (05/26/24) Chronic kidney disease, stage 3 unspecified (05/26/24) Urinary tract infection, site not specified (05/26/24) Colostomy status (05/26/24) Occupational Therapy Treatment Note M2 OT-IP Current Condition Start: 06/01/24 09:25 Freq: Status: Active Protocol: Document 06/01/24 09:25 [facility] (Rec: 06/01/24 09:37 [facility] [id number]) Occupational Therapy Current Condition Current Condition Evaluation Date 06/01/24 Treatment Diagnosis UTI/SELENA, generalized weakness Diagnosis Onset Date 05/26/24 M3 OT- IP Subjective and Pain Start: 06/01/24 09:25 Freq: Status: Active Protocol: Document 06/03/24 11:40 [facility] (Rec: 06/03/24 11:45 [facility] [id number]) OT- Subjective Occupational Therapy Visit Type Type Treatment Note Visit Start Time 11:20 Visit Stop Time 11:30 Occupational Therapy Visit Comments Patient Comments Pt states wanting to save her energy to see PT later after lunch but agreed to work with OT for LB dressing needs. Patient/Caregiver Goals TO go home. OT Pain Assessment Pain When Pain Assessed At Rest Pain Present Pain Present Denied Pain M4 OT- IP ADL's Start: 06/01/24 09:25 Freq: Status: Active Protocol: Document 06/03/24 11:40 [facility] (Rec: 06/03/24 11:45 [facility] [id number]) OT ADL-Dressing General Eval Lower Body Dressing Ability Standby Assistance Comments OT Dressing Comments Able to practice use of engineering supplies sales and sock aid for LB dressing needs. OT ADL-Bathing Comments OT Bathing Comments Pt got cleaned up earlier and not wanting to shower. M5 OT- IP IADL's Start: 06/01/24 09:25 Freq: Status: Active Protocol: Document 06/01/24 09:25 [facility] (Rec: 06/01/24 09:37 [facility] [id number]) OT-Instrumental Activities of Daily Living Deficits IADL Deficits Identified Deficits Home Safety Awareness Awareness of Need for Assistance at Home Good Awareness Ability to Problem Solve Emergency Able to Problem Solve Situations Medication Management Medication Management No Deficits Identified Meal Preparation Meal Preparation Caregiver Provides Assist Cotton Weigher Cotton Weigher Caregiver Provides Assist M6 OT- IP Functional Cognition Start: 06/01/24 09:25 Freq: Status: Active Protocol: Document 06/01/24 09:25 [facility] (Rec: 06/01/24 09:37 [facility] [id number]) Cognitive Factors Limiting Selfcare Function Cognitive Ability Level of Alertness Alert Patient Orientation Name,Age,Birthday,Month,Date, Year,Day of Week,Place, Situation Attention Span Ability Capable of Focused Attention, Capable of Sustained Attention Ability to Follow Commands Able to Follow One Step Commands Cognitive Comments Cognitive Assessment Comments Pt intact and mainly just needing vc to use her hands to push up form surfaces when coming to stand to the FWW. OT- Vision and Hearing OT- Hearing Assessment OT- Hearing Assessment WFL OT- Vision Assessment Visual Acuity Glasses For Reading Occular Pursuits WFL Visual Convergence WFL M9 OT- IP Assessment and Plan Start: 06/01/24 09:25 Freq: Status: Active Protocol: Document 06/03/24 11:40 [facility] (Rec: 06/03/24 11:45 [facility] [id number]) OT Summary Assessment and Plan Potential Rehabilitation Potential Good Analytic Complexity at Evaluation Moderate Summary OT Impairments Pain,Strength,Balance, Functional Mobility,Dressing, Toileting,Bathing,Toilet Transfers,Shower Transfers, Activity Tolerance Progress Towards Goals Slow Progress due to Medical Issues,Slow Progress due to Activity Tolerance Assessment Summary Able to go over LB dressing needs for pt. Pt still wanting to go home with son to assist when medically stable and have home health. Goals Grooming Goal Independent Dressing Goal Independent Toileting Goal Independent Bathing Goal Standby Assistance Toilet Transfer Goal Independent Shower Transfer Goal Contact Guard Assistance Days to Meet Goals 15 Frequency of Treatment Other frequency 5x/week Treatment Plan OT Treatment Plan ADL Training,Functional Mobility,Patient/Family Education,Discharge Planning Other Treatment Recommendations and Next ADL endurance Treatment Focus Discharge Recommendations OT Discharge Recommendations Home with 24/7 Assist Available,Home Health,SNF Rehab Home Equipment Needs tub bench? Transportation Needs at Discharge Private Vehicle,Wheelchair/ Cabulance
--- NOTE | 2024-06-03 13:10 | PT.IPTN ---
Current Diagnoses Parastomal hernia 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 (05/26/24) Ventral hernia 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 (05/26/24) Cellulitis of abdominal wall (05/26/24) Cellulitis, unspecified (05/26/24) Acute kidney failure, unspecified (05/26/24) Chronic kidney disease, stage 3 unspecified (05/26/24) Urinary tract infection, site not specified (05/26/24) Colostomy status (05/26/24) Physical Therapy Treatment Note M2 PT-IP Current Condition Start: 05/31/24 13:29 Freq: NEEDED Status: Active Protocol: Document 05/31/24 09:55 AB (Rec: 05/31/24 13:44 AB [id number]) Physical Therapy Current Condition Current Condition Evaluation Date 05/31/24 Treatment Diagnosis UTI; SELENA; difficulty in walking Onset Date 05/26/24 M3 PT-IP Subjective Start: 05/31/24 13:29 Freq: NEEDED Status: Active Protocol: Document 06/03/24 13:10 AB (Rec: 06/03/24 15:26 AB [id number]) Subjective Physical Therapy Visit Type Type Treatment Note Visit Start Time 13:10 Visit Stop Time 13:50 Number of BABCOCK TESTER Visits 0 Physical Therapy Visit Comments Patient Comments agreeable to do PT Therapy Pain Assessment Pain When Pain Assessed At Rest Pain Present Pain Present Pain Reported Location Abdomen Scale Used pain scale not stated Pain Management Techniques Distraction,Modification of Treatment,Re-positioning M4 PT-IP Mobility and Gait Start: 05/31/24 13:29 Freq: NEEDED Status: Active Protocol: Document 06/03/24 13:10 AB (Rec: 06/03/24 15:26 AB [id number]) PT-Transfer Assessment Sit to and From Stand Sit to and from Stand Contact Guard Assistance, Minimal Assistance,Moderate Assistance,1 Person Assistance ,Use of Upper Extremities Equipment Transfer Assistive Device Gait Belt,Front Wheeled Walker Orthotic/Prosthetic Devices or Brace: No Comments Mobility Comments pt sitting on the chair and agreed to do PT. sit to stand from chair mod A and cues. pt ambulated in room using fWW ~ 60 ft CGA and cues. pt sat back on chair and rested. (+) SOB but O2 sat: 99%. sit to stand from chair min A and max cues. pt completed up/down step stool using FWW for support min A and cues. pt sat back on chair. educated on sit<>stand techniques. pt completed sit to stand x 2 CGA to min A and cues. pt requested to go back to bed. step transfer using fWW CGA. sit to supine SBA with pt needing increase time to complete. positioned pt in bed. call light and table placed within reach. Gait Assessment Gait Gait Assistance Required: Contact Guard Assist,1 Person Assist Distance (Feet) 60 Able to Maintain Weight Bearing Status Yes During Gait Assistive Devices Assistive Device Gait Belt,Front Wheeled Walker Orthotic/Prosthetic Devices or Brace: No Gait Deviations General Gait Pattern Antalgic,Decreased Stride Length,Decreased Feet Clearance,Flexed Trunk,Step-to Gait Factors Limiting Gait Function Factors Limiting Gait Function Decreased Activity Tolerance, Decreased Strength,Limited Range of Motion,Pain,Poor Balance,Poor Safety Awareness M5 PT-IP Objective Assessments Start: 05/31/24 13:29 Freq: NEEDED Status: Active Protocol: Document 05/31/24 09:55 AB (Rec: 05/31/24 13:44 AB [id number]) Orientation Orientation/Cognition Level of Alertness Alert Orientation Name,Place,Situation Language Function Ability No Deficits Noted Safety Awareness Decreased Safety Awareness Memory Description No Deficits Noted Gross Range of Motion Lower Extremity ROM Assessment Within Functional Limits Strength Lower Extremity Strength Assessment Left Impaired Hip 3-/5 Knee 3+/5 Sensation Assessment Sensation Gross Sensation Right LE Impaired,Left LE Impaired Sensation Description Numbness Comments Sensation Comments BLE neuropathy Muscle Tone Muscle Tone WNL Yes M6 PT-IP Treatment Start: 05/31/24 13:29 Freq: NEEDED Status: Active Protocol: Document 06/03/24 13:10 AB (Rec: 06/03/24 15:26 AB [id number]) Physical Therapy Treatment Education Education Provided Safety M7 PT-IP Assessment and Plan Start: 05/31/24 13:29 Freq: NEEDED Status: Active Protocol: Document 06/03/24 13:10 AB (Rec: 06/03/24 15:26 AB [id number]) PT Summary Assessment and Plan Potential Rehabilitation Potential Fair Summary Impairments Pain,ROM,Strength,Balance, Coordination,Sensation,Tone, Cognition,Bed Mobility, Transfers,Gait,Activity Tolerance Progress Towards Goals Slow Progress due to Medical Issues,Slow Progress due to Activity Tolerance Assessment Summary pt improving slowly requiring CGA to mod A for mobility using fWW but continues to have decrease activity tolerance. pt has her son to assist her at home. pt does not want to go to SNF. will continue to assess progress. Goals Bed Mobility Goal Independent Transfer Goal Standby Assistance,Front Wheeled Walker Gait Goal Standby Assistance,Front Wheel Walker Gait Distance 100 Other Goals up/down 5 steps B rail SBA Days to Meet Goals 10 Frequency of Treatment Frequency Of Treatment Once a Day Treatment Plan Physical Therapy Treatment Plan Bed Mobility Training,Transfer Training,Gait Training, Therapeutic Exercise,Balance Retraining,Discharge Planning, Hot or Cold Pack,Neuromuscular Re-ed,Coordination Retraining ,Manual Therapy Precautions Other Precautions falls, ostomy and nephrostomy bags Recommendations To Nursing Amount of Assist Needed 1 Person Assist Discharge Recommendations PT Discharge Recommendations Home with 20/10 Assist Available,Home Health,SNF Rehab Transportation Needs at Discharge Private Vehicle,Wheelchair/ Cabulance - PT assist 1PA
--- NOTE | 2024-06-03 14:47 | PM.PN.1 ---
Subjective Subjective Date Patient Seen: 06/03/24 Time Patient Seen: 14:47 Interval history: Patient had unremarkable night overnight. She was able to eat more today than she has been. She has not having any nausea. Her stool output is now normal. She is on the Reglan 5 mg b.i.d. and has been for 48 hours. She is ambulating without lightheadedness or dizziness. Still weak. Still abdominal wall pain. IV fluids were stopped yesterday and kidney function is stable. Twelve point review of systems otherwise negative Exam Vital Signs (past 8 hours): - 06/03/24 08:00 Temperature 97.1 F L Pulse Rate 56 L Respiratory Rate 18 Blood Pressure 147/54 H Pulse Oximetry 98 Oxygen Flow Rate 0 Fraction of Inspired Oxygen 21 SaO2/FiO2 Ratio 476 Oxygen Delivery Method Room Air Oxygen Flow Rate 0 Narrative Exam Narrative: Afebrile vital signs are stable HEENT shows mucous membranes moist and pink Neck: Supple Chest: Clear to auscultation Cor: Regular rate and rhythm with distant S1-S2 Abdomen: Positive bowel sounds soft really no tenderness or guarding or rebound. Unchanged abdominal wall hernias and parastomal hernia Extremities no edema pulses intact Objective Labs 06/03/24 06:09 06/03/24 06:09 Labs: Laboratory Results - last 24 hr 06/03/24 06:09 WBC 6.1 RBC 3.00 L Hgb 8.0 L Hct 24.2 L MCV 80.5 MCH 26.7 MCHC 33.2 RDW 16.4 H Plt Count 250 Neut % (Auto) 66.1 Lymph % (Auto) 18.3 L [place] % (Auto) 6.8 Eos % (Auto) 7.7 H Baso % (Auto) 1.1 Neut # (Auto) 4000 Lymph # (Auto) 1100 [place] # (Auto) 400 Eos # (Auto) 500 H Baso # (Auto) 100 Sodium 140 Potassium 3.9 Chloride 119 H Carbon Dioxide 12 L BUN 18 H Creatinine 1.48 H Estimated GFR 35 L BUN/Creatinine Ratio 12.2 Glucose 85 Calcium 8.9 PFSH Medical History Hx of fracture of femur Hx of deep venous thrombosis Hx of primary hypertension Hx of gastroesophageal reflux (GERD) History of COPD Hx of renal cell cancer Gout Chronic UTI Arthritis Pulmonary embolism Unspecified essential hypertension Colitis with rectal bleeding Peristomal skin complication Lumbar hernia Retained urethral stent S/p nephrectomy Anticoagulated Chronic renal disease, stage 3, moderately decreased glomerular filtration rate (GFR) between 30-59 mL/min/1.73 square meter [address]ostomy in place Leg swelling Easy bruisability Rectal carcinoma Port-A-Cath in place Neuropathy Incontinence Allergic reaction 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 Abnormal mammogram of right breast Parastomal hernia 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 Rectal cancer Surgical History History of ureter stent H/O nephrostomy H/O lithotripsy History of low anterior resection of rectum Family History Mother Hypertension Cancer Son Hypertension Grandfather Heart disease Cancer Granddaughter Eczema Social History marital status: number of children: 1 household members: children lives independently: Yes occupational status: previously employed and other Smoking Status: Current some day smoker Tobacco: How many years used: 60 alcohol intake: current substance use type: does not use caffeine: Yes Type(s) of exercise: none Assessment & Plan Assessment & Plan narrative: 84-year-old female with history of renal cell carcinoma and 1 kidney and nephrostomy tube in that kidney and distal colon cancer with colostomy bag admitted for diarrheal illness with acute on chronic renal failure and dehydration. Improving with IV hydration and IV antibiotics assessment 1. UTI improving. Culture showed Pseudomonas. Patient was switched to cefepime on 05/28/2024. Per pharmacy dosing. I do not think this is contributing to her abdominal pain but certainly must consider this. plan: stop iv cefepime after 7 days, 06/04/2024 assessment 2. Acute on chronic renal failure improving. AT baseline. Continues to improve. Will stop iv fluid and recheck in am assessment 3. Hypokalemia, resolved. Will continue to monitor assessment 4. Hyperchloremia initially improved with changing from normal saline to half-normal saline still persisting. Unclear etiology. Off IV fluids for approximately 12 hours. Will reassess tomorrow. Continue off IV fluids. assessment 5. Diarrheal illness with suspicion of norovirus but reviewed stool studies which show enteropathic E coli. At this point patient is improved she has having no more diarrhea. She has no fever no leukocytosis and clinically is improving so we will continue with supportive care. If her condition worsens we will treat with antibiotic directed to treatment of ETEC E coli which would be azithromycin, Septra or Cipro. Currently seems to have resolved. Having normal stool output assessment 6. History of PE AFib on chronic anticoagulant plan: Continue with the same Eliquis assessment 7. Hypertension. Well-controlled plan: Continue with same outpatient medications Assessment 8. Crampy abdominal pain. Overall improved. Unclear if this is related to initiation of Reglan, time or initiation of vancomycin. Improved with decreasing Reglan to 5 mg twice daily. We will continue with the same. Stool output as decreased but is normal now. Assessment 9. Normocytic anemia chronic suspect multifactorial chronic disease and chronic kidney disease. Patient is not having significant amount of stool per rectum it has only been 2-3 episodes in the last several months and it has been short lived. Patient is scheduled to evaluate this with a flexible sigmoidoscopy June 28 and we will continue with this plan. Patient your mg of IV iron per Dr. Grover. Unfortunately iron studies not done prior to this but done the following day show low normal results with a ferritin of 64. Iron level was 40. Patient is not symptomatic with her anemia and H and H is stable. We will continue to monitor. Assessment 10. History of rectal carcinoma 2016, stage III, resection and radiation and previous history in 2019 of ulcer at the anastomosis. Wonder if this is ongoing. Patient is scheduled for a flexible sigmoidoscopy as an outpatient. We will continue to follow. At this point would not want to do this while patient acutely infected but pending how she does we may need to do this. Patient is scheduled for flexible sigmoidoscopy June 28 per surgery at [facility]. Due to 2-3 episodes of bright red blood coming from rectum. Patient periodically has stool that comes from the rectum Assessment 11. Right lower quadrant pain. Reviewed CT findings. Exam improved. Pain seems to be improved and patient has not asked for any pain medication. Unclear if this pain is due to the worsening hernias or new problem. In any event it is improving Patient is on IV vancomycin per surgery. Will stop after 5 days which will be tomorrow. Appreciate surgical input. disposition plan home when patient is stable. Patient still needs inpatient hospitalization due to above. Patient progressing to baseline but not at baseline 57 minutes spent with patient reviewing chart meeting with patient discussing with nursing and pharmacy, formulating a plan and documentation Time-Based Coding Time-Based Coding :: [TOTAL MINUTES] spent with patient and on the chart (including review of chart, obtaining history, exam, reviewing outside data, placing orders, documenting exam and treatment plan, and counseling patient) on [DATE]. Quality VTE Deep Vein Thrombosis/Pulmonary Embolism Present on Admission: No
--- NOTE | 2024-06-03 15:09 | DIET.PN1 ---
Dietary Progress Note Assessment: F/u with pt at bedside. Reports eating more at meals than before, but appetite is still poor. Had banana and cottage cheese for breakfast and 1/4 of a sandwich and soup at lunch. Is planning to have Ensure from lunch tray a little later and will drink the Ensure that comes on the dinner tray for bedtime snack. Discussed caloric dense food options to optimize caloric intake at home including Ensures, extra of full fat sauces/dressing/condiments, nut butters, butter/oils and discussed strategies such as ready to eat foods and small/freq meals and snacks, bedtime snack. Continuing to monitor PO intakes. Ht: 172.72 cm Wt: 75.5 kg BMI: 25.2 Last BM: 06/02/24 (06/02/24 01:44) MNA: 14 Kyler Score: 21 Diet: 05/26/24 Dinner Renal Diet Diet Modifications: Food Texture: Level 7 - Regular Liquid Consistency: Level 0 - Thin 05/27/24 Breakfast Heart Healthy Diet Diet Modifications: Nutrition Percent Meal Consumed 100% 06/02/24 18:00 Percent Meal Consumed 25% 06/01/24 18:00 Labs: RBC 3.00 X10^6/uL (4.0-5.2) L 06/03/24 06:09 Hgb 8.0 g/dL (12.0-16.0) L 06/03/24 06:09 Hct 24.2 % (36-46) L 06/03/24 06:09 Creatinine 1.48 mg/dL (0.52-1.04) H 06/03/24 06:09 Iron 40 ug/dL (37-170) 06/02/24 05:00 % Saturation 20 % (15-50) 06/02/24 05:00 Ferritin 64 ng/mL (11-264) 06/02/24 05:00 Electronically Signed by: Bailey Lira 06/03/24 15:09 Clinical Dietitian [address] [id number]
[2024-06-03 16:00] VITALS: BP 153/48; PULSE 66; RESP 15; TEMP 36.6; O2SAT 100
--- NOTE | 2024-06-03 17:17 | PM.PN.IH.1 ---
Subjective Subjective Date Patient Seen: 06/03/24 Time Patient Seen: 17:17 Interval history: Patient's appetite has improved. Her ostomy output has slowed down. She denies nausea or vomiting. She still has chronic right lower quadrant pain that she associates with her peristomal hernia. This does not seem to be anything new. Exam Vital Signs (past 8 hours): - 06/03/24 16:00 Temperature 98 F Pulse Rate 66 Respiratory Rate 15 Blood Pressure 153/48 H Pulse Oximetry 100 Fraction of Inspired Oxygen 21 SaO2/FiO2 Ratio 476 Oxygen Delivery Method Room Air Oxygen Flow Rate 0 Narrative Exam Narrative: Gen: NAD, sitting comfortably in bed, appears well HEENT: Sclera are anicteric, head is normocephalic and atraumatic, trachea is midline. CV: RRR, no JVD Resp: clear to auscultation bilaterally, equal chest wall movement bilaterally Abd: soft, nontender, normoactive bowel sounds. Ostomy is viable. Soft peristomal hernia. Ext: no edema, full range of motion Neuro: Cranial nerves II-XII grossly intact, no focal deficits Skin: No erythema or ecchymosis Objective Labs 06/03/24 06:09 06/03/24 06:09 Labs: Laboratory Results - last 24 hr 06/03/24 06:09 WBC 6.1 RBC 3.00 L Hgb 8.0 L Hct 24.2 L MCV 80.5 MCH 26.7 MCHC 33.2 RDW 16.4 H Plt Count 250 Neut % (Auto) 66.1 Lymph % (Auto) 18.3 L [place] % (Auto) 6.8 Eos % (Auto) 7.7 H Baso % (Auto) 1.1 Neut # (Auto) 4000 Lymph # (Auto) 1100 [place] # (Auto) 400 Eos # (Auto) 500 H Baso # (Auto) 100 Sodium 140 Potassium 3.9 Chloride 119 H Carbon Dioxide 12 L BUN 18 H Creatinine 1.48 H Estimated GFR 35 L BUN/Creatinine Ratio 12.2 Glucose 85 Calcium 8.9 PFSH Medical History Hx of fracture of femur Hx of deep venous thrombosis Hx of primary hypertension Hx of gastroesophageal reflux (GERD) History of COPD Hx of renal cell cancer Gout Chronic UTI Arthritis Pulmonary embolism Unspecified essential hypertension Colitis with rectal bleeding Peristomal skin complication Lumbar hernia Retained urethral stent S/p nephrectomy Anticoagulated Chronic renal disease, stage 3, moderately decreased glomerular filtration rate (GFR) between 30-59 mL/min/1.73 [address] in place Leg swelling Easy bruisability Rectal carcinoma Port-A-Cath in place Neuropathy Incontinence Allergic reaction 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 Abnormal mammogram of right breast Parastomal hernia 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 Rectal cancer Surgical History History of ureter stent H/O nephrostomy H/O lithotripsy History of low anterior resection of rectum Family History Mother Hypertension Cancer Son Hypertension Grandfather Heart disease Cancer Granddaughter Eczema Social History marital status: number of children: 1 household members: children lives independently: Yes occupational status: previously employed and other Smoking Status: Current some day smoker Tobacco: How many years used: 60 alcohol intake: current substance use type: does not use caffeine: Yes Type(s) of exercise: none Assessment & Plan Assessment and plan (1) Cellulitis: Qualifiers: Site of cellulitis: trunk Site of cellulitis of trunk: abdominal wall Qualified Code(s): L03.311 - Cellulitis of abdominal wall Status: Acute (2) Parastomal hernia 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: Problem details: enlarging parastomal and ventral hernias Status: Inactive (3) Chronic renal disease, stage 3, moderately decreased glomerular filtration rate (GFR) between 30-59 mL/min/1.73 square meter: Problem details: Status: Chronic (4) Colostomy in place: Problem details: stable; loop colostomy that was never taken down after LAR Status: Chronic (5) Ventral hernia: Qualifiers: Obstruction and gangrene presence: 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 Qualified Code(s): K43.9 - Ventral hernia 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 Status: Acute (6) Acute kidney injury: Status: Acute Assessment & Plan narrative: This 84-year-old woman with multiple comorbidities who presented for a Pseudomonas urinary tract infection and SELENA in the setting of having a left nephrostomy tube who suddenly began to have right lower quadrant abdominal pain during this admission. Patient was found to have mild right lower quadrant cellulitis. Cellulitis has improved with vancomycin. Can not rule out that there is any underlying bowel pathology as patient has a complex abdomen with multiple hernias containing bowel which are near the cellulitis site. Patient's pain is likely secondary to chronic large ventral/parastomal hernia -recommend to continue cefepime for urinary tract infection and continue vancomycin for cellulitis. Recommended total of 5 days of treatment for possible presumed MRSA cellulitis. Patient's pain is likely chronic in nature and secondary to her large multiple abdominal wall and lumbar hernias -continue to monitor patient's p.o. intake. Appreciate dietitian recommendations -encourage mobility and out of bed -monitor ostomy output for dehydration -continue maintenance IV fluid -we will continue to follow. Time-Based Coding :: [TOTAL MINUTES] spent with patient and on the chart (including review of chart, obtaining history, exam, reviewing outside data, placing orders, documenting exam and treatment plan, and counseling patient) on [DATE]. Quality VTE Deep Vein Thrombosis/Pulmonary Embolism Present on Admission: No [employer] Document charge(s): Yes Charge Codes Subsequent inpatient/observation care: [id number]
[2024-06-03] MEDS: AMLODIPINE 5 MG TABLET PO (18:34)
--- NOTE | 2024-06-03 18:40 | PC.NURSE ---
1700 meds were late due to IV med not sent up correctly, PO given, pharmacy is mixing and sending up IV antibiotics now
[2024-06-03 19:00] VITALS: BP 134/48; PULSE 58; RESP 18; TEMP 36.4; O2SAT 99
[2024-06-03] MEDS: CEFEPIME 0.5 GM in SODIUM CHLORIDE 0.9% 100 ML IV (19:01)
[2024-06-04 03:00] VITALS: BP 132/42; PULSE 59; RESP 18; TEMP 36.1; O2SAT 100
[2024-06-04 05:50] LABS: Add Manual Diff / Slide Review NO; Basophils Absolute Auto 0 /uL (0-100); Basophils Percent Auto 0.8 % (0-2); Eosinophils Absolute Auto 600 /uL (0-450); Eosinophils Percent Auto 10.8 % (2-4); Hematocrit 24.8 % (36-46); Hemoglobin 8.1 g/dL (12.0-16.0); Lymphocytes Absolute Auto 1200 /uL (1100-4500); Lymphocytes Percent Auto 21.8 % (25-40); Mean Corpuscular HGB Conc 32.5 % (30-36); Mean Corpuscular Hemoglobin 26.6 PG (26-34); Mean Corpuscular Volume 81.7 fL (80-100); Monocytes Absolute Auto 500 /uL (0-900); Monocytes Percent Auto 8.2 % (3-14); Neutrophils Absolute Auto 3300 /uL (1500-7000); Neutrophils Percent Auto 58.4 % (50-75); Platelet Count 277 X10^3/uL (150-400); Red Blood Cell Count 3.03 X10^6/uL (4.0-5.2); Red Cell Distribution Width 16.5 % (11.6-14.8); White Blood Cell Count 5.7 X10^3/uL (4.5-11.0)
[2024-06-04 06:00] LABS: Alanine Aminotransferase 10 IU/L (<35); Albumin 2.7 g/dL (3.5-5.0); Albumin Globulin Ratio 0.8 (1.0-2.8); Alkaline Phosphatase 100 U/L (38-126); Aspartate Aminotransferase 12 IU/L (14-36); BUN Creatinine Ratio 14.3 (6-22); Bilirubin Total 0.1 mg/dL (0.2-1.3); Blood Urea Nitrogen 22 mg/dL (7-17); Calcium 8.9 mg/dL (8.4-10.2); Carbon Dioxide 14 mmol/L (22-32); Chloride 117 mmol/L (98-107); Estimated Glomerular Filt Rate 34 mL/min (>60); Globulin 3.5 g/dL (1.7-4.1); Glucose 88 mg/dL (80-110); HEMOLYSIS < 15 (0-50); Potassium 4.1 mmol/L (3.4-5.1); Sodium 140 mmol/L (137-145); Total Protein 6.2 g/dL (6.3-8.2)
[2024-06-04 08:00] VITALS: BP 147/60; PULSE 60; RESP 18; TEMP 35.8; O2SAT 98
[2024-06-04 09:15] LABS: Vancomycin Trough 14.2 ug/mL (10-20)
[2024-06-04] MEDS: METOPROLOL IR 25 MG TABLET 12.5 MG PO ×2 (09:25→21:04)
[2024-06-04] MEDS: APIXABAN 5 MG TABLET 2.5 MG PO ×2 (09:25→21:04)
[2024-06-04] MEDS: VANCOMYCIN HCL 750 MG in SODIUM CHLORIDE 0.9% 250 ML 250 MG IV (09:30)
--- NOTE | 2024-06-04 10:10 | P.DS_ITS ---
History of Present Illness History of Present Illness Date Patient Seen: 06/04/24 Time Patient Seen: 08:50 Chief complaint: Dehydrated not feeling well Narrative: Complex patient well known to our service with single kidney draining via nephrostomy as well as colostomy bag at baseline, presented to ED with several days of watery output from colostomy bag and reduced darker output from nephrostomy bag, feeling poorly. Found to have UTI and acute drop in her creatinine clearance which did respond to intravenous hydration. She does report the watery output from her colostomy has stopped she feels much better after fluids from ED. Discharge Providers Provider Date of admission: 05/26/24 15:20 Discharge Date: 06/04/24 Primary care physician: Eric Grover MD Consults: 05/30/24 09:39 Consult to Physical Therapy Evaluate & Treat Comment: Physician Instructions: Evaluate and Treat 05/31/24 13:23 Consult to General Surgery Routine Comment: Consulting Provider: Yamilex Sal Reason for consultation: abd pain Has provider been notified: Yes 05/31/24 13:52 Consult to Occupational Therapy Evaluate & Treat Comment: Physician Instructions: Evaluate and treat Discharge provider: Ana Maria Dumont MD Summary Hospital Course Discharge Diagnosis: UTI with hematuria Chronic nephrostomy status Single kidney status Acute on chronic renal failure Hypokalemia Hyperchloremia EHEC infection Chronic normocytic anemia Colostomy status RLQ abdominal pain Atrial fibrillation GERD Glaucoma COPD Anxiety Hospital Course: The pt presented with watery output from her colostomy bag, darker output from her nephrostomy bag, and generally feeling poorly. The pt was noted to have significantly elevated creatinine at admission. The pt was diagnosed with UTI, which was treated with Ceftriaxone and IVF for her SELENA. Her antibiotics were transitioned to Cefepime after Pseudomonas grew. Her kidney function improved, and eventually returned to baseline by the time of delivery. She was noted to have hyperchloremia, and her IVF were transitioned to 1/2 NS. The pts abnormal colostomy output was initially thought to be due to Norovirus, however stool studies revealed EHEC. Her symptoms improved without treatment, however. The pt then developed RLQ abdominal pain, unclear etiology. Her appetite remained quite poor with nausea and vomiting. CT abdomen was completed that showed RLQ abdominal wall cellulitis and gastric distension. Reglan was initiated to help with gastric motility. The pt was initiated on IV Vancomycin for cellulitis, presumed MRSA. This was continued until the day prior to discharge (5 days). The pts pain improved minimally. The pt felt it was more likely related to her many chronic abdominal issues. At the time of discharge the pts pain was manageable off pain medications. Her appetite has returned and she was eating regular meals. Her colostomy output was back to normal. Status at Discharge Cognitive/behavioral status at discharge: at baseline, oriented Functional status at discharge: uses cane/walker Overall status at discharge: patient is back to baseline Exam Vital Signs (past 8 hours): - 06/04/24 03:00 06/04/24 08:00 Temperature 97 F L 96.4 F L Pulse Rate 59 L 60 Respiratory Rate 18 18 Blood Pressure 132/42 L 147/60 H Pulse Oximetry 100 98 Oxygen Flow Rate 0 0 Fraction of Inspired Oxygen 21 SaO2/FiO2 Ratio 476 Oxygen Delivery Method Room Air Oxygen Flow Rate 0 Narrative Exam Narrative: Gen: NAD, sitting comfortably in bed, appears well CV: RRR, no murmurs Resp: clear to auscultation bilaterally Abd: soft, colostomy bag in place, tender to deeper palpation in very localized spot in RLQ w/o rebound/guarding/rigidity, normoactive bowel sounds Ext: no edema Objective Labs 06/05/24 04:35 06/05/24 04:35 Labs: Laboratory Results - last 24 hr 06/04/24 06/04/24 05:24 08:45 WBC 5.7 RBC 3.03 L Hgb 8.1 L Hct 24.8 L MCV 81.7 MCH 26.6 MCHC 32.5 RDW 16.5 H Plt Count 277 Neut % (Auto) 58.4 Lymph % (Auto) 21.8 L [place] % (Auto) 8.2 Eos % (Auto) 10.8 H Baso % (Auto) 0.8 Neut # (Auto) 3300 Lymph # (Auto) 1200 [place] # (Auto) 500 Eos # (Auto) 600 H Baso # (Auto) 0 Sodium 140 Potassium 4.1 Chloride 117 H Carbon Dioxide 14 L BUN 22 H Creatinine 1.54 H Estimated GFR 34 L BUN/Creatinine Ratio 14.3 Glucose 88 Calcium 8.9 Total Bilirubin 0.1 L AST 12 L ALT 10 Alkaline Phosphatase 100 Total Protein 6.2 L Albumin 2.7 L Globulin 3.5 Albumin/Globulin Ratio 0.8 L Vancomycin Trough 14.2 PFSH Medical History Hx of fracture of femur Hx of deep venous thrombosis Hx of primary hypertension Hx of gastroesophageal reflux (GERD) History of COPD Hx of renal cell cancer Gout Chronic UTI Arthritis Pulmonary embolism Unspecified essential hypertension Colitis with rectal bleeding Peristomal skin complication Lumbar hernia Retained urethral stent S/p nephrectomy Anticoagulated Chronic renal disease, stage 3, moderately decreased glomerular filtration rate (GFR) between 30-59 mL/min/1.73 square meter [address]ostomy in place Leg swelling Easy bruisability Rectal carcinoma Port-A-Cath in place Neuropathy Incontinence Allergic reaction 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 Abnormal mammogram of right breast Parastomal hernia 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 Rectal cancer Surgical History History of ureter stent H/O nephrostomy H/O lithotripsy History of low anterior resection of rectum Family History Mother Hypertension Cancer Son Hypertension Grandfather Heart disease Cancer Granddaughter Eczema Social History marital status: number of children: 1 household members: children lives independently: Yes occupational status: previously employed and other Smoking Status: Current some day smoker Tobacco: How many years used: 60 alcohol intake: current substance use type: does not use caffeine: Yes Type(s) of exercise: none Discharge Plan Discharge Plan Patient Disposition: Home Health Service Discharge orders & Medications Prescriptions: Continued latanoprost 0.005 % drops 1 drp EYE-BOTH BEDTIME ipratropium-albuterol 0.5 mg-3 mg(2.5 mg base)/3 mL solution for nebulization 3 ml INHALATION 4XD Patient Comments: USE 1 VIAL VIA NEBULIZER FOUR TIMES DAILY oxycodone 10 mg Tablet 10 mg PO Q4H PRN (Reason: Pain, Moderate (4-6)) Qty: 30 0RF metoprolol tartrate 25 mg Tablet 12.5 mg PO BID amlodipine [Norvasc] 5 mg tablet 5 mg PO QPM Patient Comments: patient states takes at night Combivent Respimat 20-100 mcg/actuation mist 1 puff INHALATION 4XD apixaban 2.5 mg tablet 2.5 mg PO BID betamethasone dipropionate 0.05 % cream 1 applic topical DAILY PRN (Reason: Rash) ergocalciferol (vitamin D2) 1,250 mcg (50,000 unit) capsule 1,250 mcg PO QWEEK lorazepam 0.5 mg tablet 0.5 mg PO DAILY PRN (Reason: Anxiety) miconazole nitrate 2 % cream 1 applic topical DAILY omeprazole 20 mg capsule,delayed release(DR/EC) 20 mg PO DAILY oxycodone-acetaminophen 5-325 mg/5 mL solution 2.5 ml PO Q4-6H PRN (Reason: Pain (Scale Score 4-6)) trazodone 50 mg tablet 50 mg PO BEDTIME PRN (Reason: LORI) Follow up/Referrals: Eric Grover MD [Primary Care Provider] - 1 Week Diet/Activity/Treatments Diet: Diet as Tolerated and Regular Skin/Wound/Dressing Care Report to your healthcare provider any signs of infection, such as:: chills, fever, increased pain and unusual drainage Visit Report/Discharge Packet Stand Alone Forms: Patient Portal/API, Stroke Signs & Symptoms Discharge Data Primary Care Provider: Eric Grover Discharges patient from system. Discharge Date/Time: 06/05/24 11:30 Quality VTE Deep Vein Thrombosis/Pulmonary Embolism Present on Admission: No [facility] PROFEE Charge Codes Discharge inpatient/observation: 36640
--- NOTE | 2024-06-04 12:03 | PM.PN.IH.1 ---
Subjective Subjective Date Patient Seen: 06/04/24 Time Patient Seen: 12:03 Interval history: Patient seems to be at her baseline level of pain and feels appropriate for discharge. Her ostomy bag is functioning well and she is eating well. Exam Vital Signs (past 8 hours): - 06/04/24 08:00 Temperature 96.4 F L Pulse Rate 60 Respiratory Rate 18 Blood Pressure 147/60 H Pulse Oximetry 98 Oxygen Flow Rate 0 Fraction of Inspired Oxygen 21 SaO2/FiO2 Ratio 476 Oxygen Delivery Method Room Air Oxygen Flow Rate 0 Narrative Exam Narrative: Gen: NAD, sitting comfortably in bed, appears well HEENT: Sclera are anicteric, head is normocephalic and atraumatic, trachea is midline. CV: RRR, no JVD Resp: clear to auscultation bilaterally, equal chest wall movement bilaterally Abd: soft, nontender, normoactive bowel sounds. Ostomy has air and stool. Ext: no edema, full range of motion Neuro: Cranial nerves II-XII grossly intact, no focal deficits Skin: No erythema or ecchymosis Objective Labs 06/04/24 05:24 06/04/24 05:24 Labs: Laboratory Results - last 24 hr 06/04/24 06/04/24 05:24 08:45 WBC 5.7 RBC 3.03 L Hgb 8.1 L Hct 24.8 L MCV 81.7 MCH 26.6 MCHC 32.5 RDW 16.5 H Plt Count 277 Neut % (Auto) 58.4 Lymph % (Auto) 21.8 L [place] % (Auto) 8.2 Eos % (Auto) 10.8 H Baso % (Auto) 0.8 Neut # (Auto) 3300 Lymph # (Auto) 1200 [place] # (Auto) 500 Eos # (Auto) 600 H Baso # (Auto) 0 Sodium 140 Potassium 4.1 Chloride 117 H Carbon Dioxide 14 L BUN 22 H Creatinine 1.54 H Estimated GFR 34 L BUN/Creatinine Ratio 14.3 Glucose 88 Calcium 8.9 Total Bilirubin 0.1 L AST 12 L ALT 10 Alkaline Phosphatase 100 Total Protein 6.2 L Albumin 2.7 L Globulin 3.5 Albumin/Globulin Ratio 0.8 L Vancomycin Trough 14.2 PFSH Medical History Hx of fracture of femur Hx of deep venous thrombosis Hx of primary hypertension Hx of gastroesophageal reflux (GERD) History of COPD Hx of renal cell cancer Gout Chronic UTI Arthritis Pulmonary embolism Unspecified essential hypertension Colitis with rectal bleeding Peristomal skin complication Lumbar hernia Retained urethral stent S/p nephrectomy Anticoagulated Chronic renal disease, stage 3, moderately decreased glomerular filtration rate (GFR) between 30-59 mL/min/1.73 square meter [address]ostomy in place Leg swelling Easy bruisability Rectal carcinoma Port-A-Cath in place Neuropathy Incontinence Allergic reaction 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 Abnormal mammogram of right breast Parastomal hernia 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 Rectal cancer Surgical History History of ureter stent H/O nephrostomy H/O lithotripsy History of low anterior resection of rectum Family History Mother Hypertension Cancer Son Hypertension Grandfather Heart disease Cancer Granddaughter Eczema Social History marital status: number of children: 1 household members: children lives independently: Yes occupational status: previously employed and other Smoking Status: Current some day smoker Tobacco: How many years used: 60 alcohol intake: current substance use type: does not use caffeine: Yes Type(s) of exercise: none Assessment & Plan Assessment and plan (1) Cellulitis: Qualifiers: Site of cellulitis: trunk Site of cellulitis of trunk: abdominal wall Qualified Code(s): L03.311 - Cellulitis of abdominal wall Status: Acute (2) Parastomal hernia 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: Problem details: enlarging parastomal and ventral hernias Status: Inactive (3) Chronic renal disease, stage 3, moderately decreased glomerular filtration rate (GFR) between 30-59 mL/min/1.73 square meter: Problem details: Status: Chronic (4) Colostomy in place: Problem details: stable; loop colostomy that was never taken down after LAR Status: Chronic (5) Ventral hernia: Qualifiers: Obstruction and gangrene presence: 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 Qualified Code(s): K43.9 - Ventral hernia 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 Status: Acute (6) Acute kidney injury: Status: Acute Assessment & Plan narrative: This 84-year-old woman with multiple comorbidities who presented for a Pseudomonas urinary tract infection and SELENA in the setting of having a left nephrostomy tube who suddenly began to have right lower quadrant abdominal pain during this admission. Patient was found to have mild right lower quadrant cellulitis. Cellulitis has improved with vancomycin. Can not rule out that there is any underlying bowel pathology as patient has a complex abdomen with multiple hernias containing bowel which are near the cellulitis site. Patient's pain is likely secondary to chronic large ventral/parastomal hernia Discharge planning per primary service. No surgery issues at this time. Patient would not agree to any further surgeries, regardless. We will sign off.. Time-Based Coding :: [TOTAL MINUTES] spent with patient and on the chart (including review of chart, obtaining history, exam, reviewing outside data, placing orders, documenting exam and treatment plan, and counseling patient) on [DATE]. Quality VTE Deep Vein Thrombosis/Pulmonary Embolism Present on Admission: No [facility] PROFEE Beet End Supervisor Document charge(s): Yes Charge Codes Subsequent inpatient/observation care: [id number]
--- NOTE | 2024-06-04 12:54 | CM.DPC ---
Addendum entered by THERESE Chnug 06/04/24 15:05: ADD: Per Rn, pt was anxious about discharge as her primary told her likely d/c tomorrow Sun and no transport home and does not feel stable for d/c. RN called MD who was agreeable with pt staying tonight and discharge tomorrow Sun. BF Original Note: DCP Discharge Home with HH Per MD, pt's lab stable and back to her baseline of chronic anemia and single kidney with nephrostomy tube and medically stable to d/c home today with ongoing [facility]. Per RN, pt given d/c instructions and no concerns noted. Son arrived to provide transport home. SW alerted [facility] on pt discharge home today and faxed d/c summary, F2F and new orders to review for ongoing HH services with added PT/OT to existing RN. THERESE Chung
--- NOTE | 2024-06-04 14:15 | PT.IPTN ---
Current Diagnoses Parastomal hernia 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 (05/26/24) Ventral hernia 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 (05/26/24) Cellulitis of abdominal wall (05/26/24) Cellulitis, unspecified (05/26/24) Acute kidney failure, unspecified (05/26/24) Chronic kidney disease, stage 3 unspecified (05/26/24) Urinary tract infection, site not specified (05/26/24) Colostomy status (05/26/24) Physical Therapy Treatment Note M2 PT-IP Current Condition Start: 05/31/24 13:29 Freq: NEEDED Status: Active Protocol: Document 05/31/24 09:55 AB (Rec: 05/31/24 13:44 AB [id number]) Physical Therapy Current Condition Current Condition Evaluation Date 05/31/24 Treatment Diagnosis UTI; SELENA; difficulty in walking Onset Date 05/26/24 M3 PT-IP Subjective Start: 05/31/24 13:29 Freq: NEEDED Status: Active Protocol: Document 06/04/24 14:15 AB (Rec: 06/04/24 15:24 AB [id number]) Subjective Physical Therapy Visit Type Type Treatment Note Visit Start Time 14:15 Visit Stop Time 15:00 Number of GUEST SPECIALIST Visits 0 Physical Therapy Visit Comments Patient Comments agreeable to do PT Therapy Pain Assessment Location left flank Scale Used pain scale not stated Description Sharp Pain Management Techniques Distraction,Re-positioning, Timing of Activity with Medications M4 PT-IP Mobility and Gait Start: 05/31/24 13:29 Freq: NEEDED Status: Active Protocol: Document 06/04/24 14:15 AB (Rec: 06/04/24 15:24 AB [id number]) PT-Bed Mobility Assessment Supine to Sit Supine to Sit Standby Assistance PT-Transfer Assessment Sit to and From Stand Sit to and from Stand Standby Assistance,1 Person Assistance,Use of Upper Extremities Equipment Transfer Assistive Device Gait Belt,Front Wheeled Walker Orthotic/Prosthetic Devices or Brace: No Transfers Transfer Destination Chair,Wheelchair Transfer Technique ambulated Transfer Ability Level of Assist Standby Assistance,1 Person Assistance,Use of Upper Extremities Comments Mobility Comments pt in bed and agreeable to do PT. supine to sit SBA. c/o L lower flank sharp pain. pt completed sit to stand SBA and ambulated to w/c ~ 20 ft SBA. stair climbing training: pt completed up/down 3 steps using B rails CGA. pt agreed to ambulate more. completed ambulation using FWW ~ 125 ft, requiring SBA but CGA towards ends of ambulation due to unsteadiness and c/o feeling tired. pt ambulated to her chair. positioned pt on the chair call light and table placed within reach. left pt with NAC . Gait Assessment Gait Gait Assistance Required: Standby Assistance,Contact Guard Assist,1 Person Assist Distance (Feet) 125 Able to Maintain Weight Bearing Status Yes During Gait Assistive Devices Assistive Device Gait Belt,Front Wheeled Walker Orthotic/Prosthetic Devices or Brace: No Gait Deviations General Gait Pattern Decreased Stride Length, Decreased Feet Clearance Factors Limiting Gait Function Factors Limiting Gait Function Decreased Activity Tolerance, Decreased Strength,Pain,Poor Balance,Poor Safety Awareness Stair Climbing Assessment Evaluation Level of Assist On Stairs Contact Guard Assistance Devices Stair Climbing Assistive Devices Left Railing,Right Railing Technique/Endurance Stair Climbing Direction Ascend and Descend Stair Climbing Technique Step to Step Number of Steps Climbed 3 Stair Climbing Set # Repetitions (reps) 1 M5 PT-IP Objective Assessments Start: 05/31/24 13:29 Freq: NEEDED Status: Active Protocol: Document 05/31/24 09:55 AB (Rec: 05/31/24 13:44 AB [id number]) Orientation Orientation/Cognition Level of Alertness Alert Orientation Name,Place,Situation Language Function Ability No Deficits Noted Safety Awareness Decreased Safety Awareness Memory Description No Deficits Noted Gross Range of Motion Lower Extremity ROM Assessment Within Functional Limits Strength Lower Extremity Strength Assessment Left Impaired Hip 3-/5 Knee 3+/5 Sensation Assessment Sensation Gross Sensation Right LE Impaired,Left LE Impaired Sensation Description Numbness Comments Sensation Comments BLE neuropathy Muscle Tone Muscle Tone WNL Yes M6 PT-IP Treatment Start: 05/31/24 13:29 Freq: NEEDED Status: Active Protocol: Document 06/04/24 14:15 AB (Rec: 06/04/24 15:24 AB [id number]) Physical Therapy Treatment Education Education Provided Safety M7 PT-IP Assessment and Plan Start: 05/31/24 13:29 Freq: NEEDED Status: Active Protocol: Document 06/04/24 14:15 AB (Rec: 06/04/24 15:24 AB [id number]) PT Summary Assessment and Plan Potential Rehabilitation Potential Fair Summary Impairments Pain,ROM,Strength,Balance, Coordination,Sensation,Tone, Cognition,Bed Mobility, Transfers,Gait,Activity Tolerance Progress Towards Goals Slow Progress due to Activity Tolerance Assessment Summary pt progressing slowly with mobility and able to completed stair climbing using B rails CGA and ambulation using fWW ~ 125 ft SBA to CGA. pt plans to go home and will have her son assist her at home. Goals Bed Mobility Goal Independent Transfer Goal Standby Assistance,Front Wheeled Walker Gait Goal Standby Assistance,Front Wheel Walker Gait Distance 100 Other Goals up/down 5 steps B rail SBA Days to Meet Goals 10 Frequency of Treatment Frequency Of Treatment Once a Day Treatment Plan Physical Therapy Treatment Plan Bed Mobility Training,Transfer Training,Gait Training, Therapeutic Exercise,Balance Retraining,Discharge Planning, Hot or Cold Pack,Neuromuscular Re-ed,Coordination Retraining ,Manual Therapy Precautions Other Precautions falls, ostomy and nephrostomy bags Recommendations To Nursing Amount of Assist Needed 1 Person Assist Discharge Recommendations PT Discharge Recommendations Home with 20/10 Assist Available,Home Health Transportation Needs at Discharge Private Vehicle,Wheelchair/ Cabulance - PT assist 1PA
[2024-06-04 16:00] VITALS: RESP 18; TEMP 36.4
[2024-06-04] MEDS: AMLODIPINE 5 MG TABLET PO (17:31)
--- NOTE | 2024-06-04 18:50 | PC.NURSE ---
Pt had uneventful day. Denies discomfort. Up in chair for meals. Neprostomy intact/patent yellow urine. Colostomy w/flatus ADDY midline patent Call light w/in reach, bed alarm on for pt safety, Contniue w/ plan of care
[2024-06-04 20:00] VITALS: BP 136/51; PULSE 72; RESP 16; TEMP 36.1; O2SAT 98
[2024-06-05 05:00] VITALS: BP 141/52; PULSE 59; RESP 24; TEMP 36.3; O2SAT 96
[2024-06-05 05:18] LABS: Add Manual Diff / Slide Review NO; Basophils Absolute Auto 0 /uL (0-100); Basophils Percent Auto 0.8 % (0-2); Eosinophils Absolute Auto 600 /uL (0-450); Eosinophils Percent Auto 11.2 % (2-4); Hematocrit 24.5 % (36-46); Hemoglobin 8.2 g/dL (12.0-16.0); Lymphocytes Absolute Auto 1500 /uL (1100-4500); Lymphocytes Percent Auto 25.9 % (25-40); Mean Corpuscular HGB Conc 33.4 % (30-36); Mean Corpuscular Hemoglobin 26.9 PG (26-34); Mean Corpuscular Volume 80.6 fL (80-100); Monocytes Absolute Auto 500 /uL (0-900); Monocytes Percent Auto 9.3 % (3-14); Neutrophils Absolute Auto 3000 /uL (1500-7000); Neutrophils Percent Auto 52.8 % (50-75); Platelet Count 307 X10^3/uL (150-400); Red Blood Cell Count 3.04 X10^6/uL (4.0-5.2); Red Cell Distribution Width 16.7 % (11.6-14.8); White Blood Cell Count 5.7 X10^3/uL (4.5-11.0)
[2024-06-05 05:39] LABS: BUN Creatinine Ratio 17.8 (6-22); Blood Urea Nitrogen 26 mg/dL (7-17); Carbon Dioxide 14 mmol/L (22-32); Chloride 117 mmol/L (98-107); Estimated Glomerular Filt Rate 36 mL/min (>60); Glucose 96 mg/dL (80-110); HEMOLYSIS < 15 (0-50); Potassium 3.9 mmol/L (3.4-5.1); Sodium 140 mmol/L (137-145)
[2024-06-05] MEDS: METOCLOPRAMIDE HCL 5 MG TABLET PO (06:19)
[2024-06-05] MEDS: METOPROLOL IR 25 MG TABLET 12.5 MG PO (09:12)
[2024-06-05] MEDS: APIXABAN 5 MG TABLET 2.5 MG PO (09:12)
[2024-06-05] MEDS: NYSTATIN POWDER 15GM 1 APPLIC TOP (09:12)
--- NOTE | 2024-06-05 09:52 | P.PN_ITS ---
Subjective Subjective Date Patient Seen: 06/05/24 Time Patient Seen: 09:20 Interval history: Pt did not discharge yesterday due to not having transportation. No changes overnight. Appetite continues to improve. Exam Vital Signs (past 8 hours): - 06/05/24 05:00 06/05/24 07:00 Temperature 97.3 F L Pulse Rate 59 L Respiratory Rate 24 Blood Pressure 141/52 H Pulse Oximetry 96 Oxygen Delivery Method Room Air Oxygen Flow Rate 0 Fraction of Inspired Oxygen 21 SaO2/FiO2 Ratio 476 Oxygen Delivery Method Room Air Oxygen Flow Rate 0 Narrative Exam Narrative: Gen: NAD, sitting comfortably in bed CV: RRR, no murmurs Resp: clear to auscultation bilaterally Abd: soft, tender to palpation in very localized area RLQ w/o rebound/guarding/rigidity, colonstomy bag in place Ext: trace edema Objective Labs 06/05/24 04:35 06/05/24 04:35 Labs: Laboratory Results - last 24 hr 06/04/24 06/05/24 08:45 04:35 WBC 5.7 RBC 3.04 L Hgb 8.2 L Hct 24.5 L MCV 80.6 MCH 26.9 MCHC 33.4 RDW 16.7 H Plt Count 307 Neut % (Auto) 52.8 Lymph % (Auto) 25.9 [place] % (Auto) 9.3 Eos % (Auto) 11.2 H Baso % (Auto) 0.8 Neut # (Auto) 3000 Lymph # (Auto) 1500 [place] # (Auto) 500 Eos # (Auto) 600 H Baso # (Auto) 0 Sodium 140 Potassium 3.9 Chloride 117 H Carbon Dioxide 14 L BUN 26 H Creatinine 1.46 H Estimated GFR 36 L BUN/Creatinine Ratio 17.8 Glucose 96 Calcium 9.0 Vancomycin Trough 14.2 PFSH Medical History Hx of fracture of femur Hx of deep venous thrombosis Hx of primary hypertension Hx of gastroesophageal reflux (GERD) History of COPD Hx of renal cell cancer Gout Chronic UTI Arthritis Pulmonary embolism Unspecified essential hypertension Colitis with rectal bleeding Peristomal skin complication Lumbar hernia Retained urethral stent S/p nephrectomy Anticoagulated Chronic renal disease, stage 3, moderately decreased glomerular filtration rate (GFR) between 30-59 mL/min/1.73 square meter [address]ostomy in place Leg swelling Easy bruisability Rectal carcinoma Port-A-Cath in place Neuropathy Incontinence Allergic reaction 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 Abnormal mammogram of right breast Parastomal hernia 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 Rectal cancer Surgical History History of ureter stent H/O nephrostomy H/O lithotripsy History of low anterior resection of rectum Family History Mother Hypertension Cancer Son Hypertension Grandfather Heart disease Cancer Granddaughter Eczema Social History marital status: number of children: 1 household members: children lives independently: Yes occupational status: previously employed and other Smoking Status: Current some day smoker Tobacco: How many years used: 60 alcohol intake: current substance use type: does not use caffeine: Yes Type(s) of exercise: none Assessment & Plan Assessment & Plan narrative: Pt is stable for discharge today. Transportation arranged. Please see discharge summary from yesterday. Time-Based Coding :: [TOTAL MINUTES] spent with patient and on the chart (including review of chart, obtaining history, exam, reviewing outside data, placing orders, documenting exam and treatment plan, and counseling patient) on [DATE]. Quality VTE Deep Vein Thrombosis/Pulmonary Embolism Present on Admission: No [facility] PROFEE Pharmacy Clerk Document charge(s): Yes Charge Codes Subsequent inpatient/observation care: 69114
--- NOTE | 2024-06-05 10:36 | CM.DPC ---
DCP Discharge Home with Per MD, pt remains medically stable to d/c home today with HH and met bedside with pt and pt agreeable with d/c home today and discharge orders placed. Pt requesting assist with calling son to figure out transport time today. BREANA called balaji Villalba and updated on discharge orders and [facility] RN/PT/OT set up and son agreeable with d/c plan and states he will arrive by 1100 and bring pt's clothes to wear home and he will assist pt with getting back to her place. BREANA updated AD OPERATIONS INTERN and RN. Discharge summary, F2F, and orders previously sent to [facility] yesterday Sat as thought pt would discharge yesterday. Plan: Patient to discharge home today via [facility] Villalba's POV before lunchtime and [facility] RN/PT/OT. THERESE Chung
--- NOTE | 2024-06-05 11:02 | PC.NURSE ---
Addendum entered by Ana Lopez R.N. 06/05/24 11:36: 1130 Patient off unit via wheelchair at this time. Son accompanying patient, belongings in possession. Original Note: 1102 Discharge instructions given to patient and son. Patient verbalized understanding. IV removed and dressing applied. Patient and family verbalized understanding and instructions signed and placed in chart. No complaints at this time. Son at the bedside. Patient in possession of belongings.
== END 2024-06-05 11:30 | disposition home health service (06) | DRG 690 ==
LOC: ED 14:54 → AC 15:21
PROVIDERS: Family Medicine; Admitting Provider Family Medicine; Emergency Provider Emergency Medicine; PCP Family Medicine; Referring Provider Emergency Medicine; Visit Provider Family Medicine
DX: N39.0 Urinary tract infection, site not specified (principal); N17.9 Acute kidney failure, unspecified; L03.311 Cellulitis of abdominal wall; E44.0 Moderate protein-calorie malnutrition; F17.200 Nicotine dependence, unspecified, uncomplicated; I48.91 Unspecified atrial fibrillation; H40.9 Unspecified glaucoma; K21.9 Gastro-esophageal reflux disease without esophagitis; J44.9 Chronic obstructive pulmonary disease, unspecified; F41.9 Anxiety disorder, unspecified; R19.7 Diarrhea, unspecified; E86.0 Dehydration; E87.6 Hypokalemia; E87.8 Other disorders of electrolyte and fluid balance, not elsewhere classified; I12.9 Hypertensive chronic kidney disease with stage 1 through stage 4 chronic kidney disease, or unspecified chronic kidney disease; B96.5 Pseudomonas (aeruginosa) (mallei) (pseudomallei) as the cause of diseases classified elsewhere; K43.5 Parastomal hernia without obstruction or gangrene; K43.9 Ventral hernia without obstruction or gangrene; N18.30 Chronic kidney disease, stage 3 unspecified; D63.1 Anemia in chronic kidney disease; B95.62 Methicillin resistant Staphylococcus aureus infection as the cause of diseases classified elsewhere; B99.8 Other infectious disease; B96.22 Other specified Shiga toxin-producing Escherichia coli [E. coli] [STEC] as the cause of diseases classified elsewhere; Z66 Do not resuscitate; Z93.3 Colostomy status; Z79.01 Long term (current) use of anticoagulants; Z93.6 Other artificial openings of urinary tract status; Z90.5 Acquired absence of kidney; Z86.718 Personal history of other venous thrombosis and embolism; Z85.038 Personal history of other malignant neoplasm of large intestine; Z85.528 Personal history of other malignant neoplasm of kidney; Z68.25 Body mass index [BMI] 25.0-25.9, adult
CPT/HCPCS: 36415; 74176; 80048; 80053; 80202; 81001; 82728; 83540; 83550; 83690; 85025; 87077; 87086; 87186; 87507; 93005; 94640; 96361; 96365; 97116; 97163; 97166; 97530; 97535; 99284; J0692; J0696; J2405; J2916; J3370; J7050

== ENCOUNTER → 2024-07-13 12:24 | Outpatient (CLI) | payer MEDICARE, SELFPAY ==
--- NOTE | 2024-07-13 12:28 | DI.RAD.S_ITS ---
PROCEDURE: XR HIP W PEL IF DONE ABIDA MIN 4V INDICATIONS: PAIN TECHNIQUE: AP pelvis with lateral view(s) of the bilateral hips COMPARISON: [facility], CR, [id number] W PEL IF PERFORMED, 07/16/2022, 17:25. FINDINGS: Bones: Dynamic screw and side plate transfix a subtotally unified intertrochanteric fracture of the left hip with mild deformity SI and hip joints: Mild degeneration in all joints Soft tissues: No soft tissue swelling, calcification or mass. IMPRESSION: ORIF left intertrochanteric fracture with mild deformity. Near complete osseous union Dictated by: Mike Davila M.D. on 07/14/2024 at 11:33 Approved by: Mike Davila M.D. on 07/14/2024 at 11:34
--- NOTE | 2024-07-13 12:28 | DI.RAD.S_ITS ---
PROCEDURE: XR FEMUR LT MIN 2V INDICATIONS: PAIN TECHNIQUE: 2 views of the femur were acquired. COMPARISON: [facility], CR, XR FEMUR LT MIN 2V, 03/17/2024, 10:38. FINDINGS: Bones: Dynamic screw and side plate transfix a solidly united intertrochanteric fracture of the left hip. There is mild deformity. Joints: Mild degeneration left hip noted. There is severe patellofemoral and tibiofemoral degeneration Soft tissues: No soft tissue abnormality. IMPRESSION: ORIF left intertrochanteric fracture which is solid unified with minimal deformity. Mild left hip degeneration. Severe patellofemoral and tibial femoral degeneration Dictated by: Mike Davila M.D. on 07/14/2024 at 11:31 Approved by: Mike Davila M.D. on 07/14/2024 at 11:33
== END ==
PROVIDERS: PCP Family Medicine; Referring Provider Family Medicine; Visit Provider Family Medicine
DX: S72.142D Displaced intertrochanteric fracture of left femur, subsequent encounter for closed fracture with routine healing (principal); M16.0 Bilateral primary osteoarthritis of hip; M17.12 Unilateral primary osteoarthritis, left knee; M79.605 Pain in left leg; M25.551 Pain in right hip
CPT/HCPCS: 73522; 73552

== ENCOUNTER 2024-10-14 15:16 | Observation (INO) | payer MEDICARE, SELFPAY ==
[2024-10-14] VITALS (12 sets, daily range): BP systolic 135–202; BP diastolic 68–85; PULSE 70–83; RESP 16–19; TEMP 36.4–36.5; O2SAT 92–99; BMI 26.6
--- NOTE | 2024-10-14 16:07 | DI.CT.S_ITS ---
PROCEDURE: CT ABDOMEN PELVIS WO CON INDICATIONS: L sided nephrostomy with pain TECHNIQUE: Axial sections were acquired from the lung bases to the pubic symphysis. Coronal and sagittal reformats were performed. For radiation dose reduction, the following was used: automated exposure control, adjustment of mA and/or kV according to patient size. COMPARISON: [facility], CT, CT ABDOMEN PELVIS WO CON, 05/31/2024, 9:16. FINDINGS: Image quality: Diagnostic. Lower Chest: Cardiomegaly. No pleural or pericardial effusion. URINARY: Right Kidney: Surgically absent. Right Ureter: Not seen. Left Kidney: Cortical renal thinning. Simple and hyperdense perinephric cysts present. There is a percutaneous nephrostomy with a pigtail coiled in the renal pelvis. Prominent parapelvic inflammation, however this appears chronic. No hydronephrosis. Left Ureter: Mid ureter is dilated and contains a coarse calcification measuring about 1 cm. Bladder: Completely decompressed. ABDOMEN: Liver: No contour-deforming solid mass. Gallbladder: No wall thickening or calcified stones. Biliary ducts: No biliary dilation. Pancreas: Moderate fatty infiltration. No ductal dilatation. Spleen: There is a prominent subcapsular hematoma surrounding approximately 50% to slightly greater than 50% of the lateral spleen from superior to inferior pole. This measures roughly 3.9 cm in thickness and is appearing to compress splenic parenchyma. A hematocrit level is seen.. There is no perisplenic fluid or hemorrhage. No retroperitoneal hematoma. Adrenal Glands: No adrenal nodules. Stomach and Bowel: The stomach is decompressed. Small bowel loops are decompressed. Normal quantity of colonic stool. Peritoneum: There is no free fluid or free air. No dependently layering hemorrhage or intraperitoneal hematoma. Ventral Wall: Large bowel containing left anterior and right posterior abdominal wall hernias. Fat containing midline hernias. Bowel containing anterior midline pelvic hernia. Abdominal Nodes: Several prominent retroperitoneal lymph nodes to the left of the aorta. No matted or bulky adenopathy. Vessels: The abdominal aorta, IVC, and portal vein are of normal caliber. Heavy abdominal aortic atherosclerotic calcification. PELVIS: Pelvic Organs: Age-appropriate. Pelvic Nodes: Unremarkable. Miscellaneous: No inguinal hernias are seen. Bones: Left hip pin. Compression fracture of L5. Chronic disc and endplate degeneration in the upper lumbar spine. No suspicious bone lesions. IMPRESSION: Grade 2/3 subcapsular splenic hematoma, probably subacute and most likely symptomatic. No perisplenic or intraperitoneal hemorrhage and no significant free pelvic fluid. Preliminary findings discussed with Dr. Donahue in the emergency room at 17:29 hours. Left percutaneous nephrostomy tube in stable position. Chronic left mid ureteral calculus. Other findings are stable. Dictated by: Carina Rubio M.D. on 10/14/2024 at 17:24 Approved by: Carina Rubio M.D. on 10/14/2024 at 17:39
[2024-10-14 16:36] LABS: Add Manual Diff / Slide Review NO; Hematocrit 27.7 % (36-46); Hemoglobin 8.8 g/dL (12.0-16.0); Lymphocytes Absolute Auto 700 /uL (1100-4500); Mean Corpuscular HGB Conc 31.7 % (30-36); Mean Corpuscular Hemoglobin 24.9 PG (26-34); Mean Corpuscular Volume 78.4 fL (80-100); Platelet Count 367 X10^3/uL (150-400)
[2024-10-14 16:44] LABS: Alanine Aminotransferase 8 IU/L (<35); Albumin 3.7 g/dL (3.5-5.0); Albumin Globulin Ratio 0.9 (1.0-2.8); Alkaline Phosphatase 133 U/L (38-126); Blood Urea Nitrogen 29 mg/dL (7-17); Calcium 9.3 mg/dL (8.4-10.2); Carbon Dioxide 18 mmol/L (22-32); Chloride 109 mmol/L (98-107); Estimated Glomerular Filt Rate 31 mL/min (>60); Globulin 4.3 g/dL (1.7-4.1); Glucose 100 mg/dL (70-99); HEMOLYSIS 21 (0-50); Lipase 56 U/L (23-300); Potassium 4.2 mmol/L (3.4-5.1); Sodium 137 mmol/L (137-145); Total Protein 8.0 g/dL (6.3-8.2)
--- NOTE | 2024-10-14 19:10 | ED_ITS ---
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 Patient reports having left flank pain that started yesterday despite taking 1 [place] with no significant relief of her symptoms. Patient states that she had a mechanical fall 3 months ago in the bathroom landing on her left side. Patient denies any headache, dizziness, chest pain, shortness of breath, fever, chills, body aches, nausea, vomiting, abdominal pain. Other than what is stated 14 point review of system is negative. Related Data Home Medications ?Medication ?Instructions ?Recorded ?Confirmed latanoprost 0.005 % eye drops 1 drp EYE-BOTH BEDTIME 1 04/11/17 10/14/24 metoprolol tartrate 25 mg tablet 12.5 mg PO BID 10/14/24 ipratropium 0.5 mg-albuterol 3 mg 3 ml inhalation 4XD 07/16/22 10/14/24 (2.5 mg base)/3 mL nebulization soln ipratropium 20 mcg-albuterol 100 1 puff inhalation 4XD 03/31/23 10/14/24 mcg/actuation mist for inhalation (Combivent Respimat) apixaban 2.5 mg tablet 2.5 mg PO BID 03/17/2410/14 betamethasone dipropionate 0.05 % 1 applic topical DOMINGO LY PRN Rash 03/17/24 10/14/24 topical cream ergocalciferol (vitamin D2) 1,250 1,250 mcg PO QWEEK 1 05/18/23 10/14/24 mcg (50,000 unit) capsule lorazepam 0.5 mg tablet 0.5 mg PO DAILY PRN Anxiety 03/17/24 10/14/24 miconazole nitrate 2 % topical 1 applic topical DAILY 03/17/24 10/14/24 cream omeprazole 20 mg capsule,delayed 20 mg PO DAILY 10/14/24 release trazodone 50 mg tablet 50 mg PO BEDTIME PRN LORI 10/14/24 Allergies Allergy/AdvReac Type Severity Reaction Status Date / Time cashew nut Allergy Severe Anaphylaxis Verified 10/14/24 15:05 ciprofloxacin (CIPROFLOXACIN) Allergy Intermediate HIVES UP Verified 10/14/24 15:05 ARM RIGHT AFTER IV DOSE STARTED nitrofurantoin (From Allergy Intermediate rash, Verified 10/14/24 15:05 MACRODANTIN) itching Review of Systems Review of Systems ROS Unobtainable: All systems reviewed & are unremarkable except as noted in HPI and below Patient History Medical History Abnormal mammogram of right breast Allergic reaction Anticoagulated Arthritis Chronic renal disease, stage 3, moderately decreased glomerular filtration rate (GFR) between 30-59 mL/min/1.73 square meter Chronic UTI Colitis with rectal bleeding 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 Easy bruisability Gout History of COPD Hx of deep venous thrombosis Hx of fracture of femur Hx of gastroesophageal reflux (GERD) Hx of primary hypertension Hx of renal cell cancer Incontinence Leg swelling Lumbar hernia Neuropathy 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 Pulmonary embolism Rectal cancer Rectal carcinoma Retained urethral stent S/p nephrectomy Unspecified essential hypertension Surgical History H/O lithotripsy H/O nephrostomy History of low anterior resection of rectum History of ureter stent Family History Mother Hypertension Cancer Son Hypertension Grandfather Heart disease Cancer Granddaughter Eczema Social History marital status: number of children: 1 household members: children lives independently: Yes occupational status: previously employed and other Tobacco: How many years used: 60 alcohol intake: current substance use type: does not use caffeine: Yes Type(s) of exercise: none alcohol intake frequency: holidays/special occasions only Exam Narrative Exam Narrative: GENERAL: [84] year old patient appears stated age. Well-developed patient, in mild distress. HEAD: Atraumatic. Normocephalic. EYES: Pupils equal round and reactive. Extraocular motions intact. No scleral icterus. No injection or drainage. ENT: Nose without bleeding, purulent drainage. Throat without erythema, tonsillar hypertrophy or exudate. Airway patent. NECK: Trachea midline. Non tender CARDIOVASCULAR: Regular rate and rhythm without murmurs, gallops, or rubs. RESPIRATORY: Clear to auscultation. Breath sounds equal bilaterally. No wheezes, rales, or rhonchi. GASTROINTESTINAL: Abdomen soft, non-tender, nondistended. Colostomy bag intact no bleeding oozing redness warmth from side. Left nephrostomy tube intac no no redness warmth or purulent drainage seen. Left flank pain tender to palpate. EXTREMITIES: No edema or joint tenderness. BACK: Nontender without deformity or crepitance. No flank tenderness. NEURO: AOx3. SKIN: No rash or erythema of visible areas Initial Vital Signs Initial Vital Signs: Vital Signs Temperature 97.7 F 10/14/24 15:59 Pulse Rate 77 10/14/24 15:59 Respiratory Rate 16 10/14/24 15:59 Blood Pressure 166/74 H 10/14/24 15:59 Pulse Oximetry 99 10/14/24 15:59 Oxygen Delivery Method Room Air 10/14/24 15:59 Course Orders Ordered: ED Orders 10/14/24 16:03 EKG-12 Lead Stat 10/14/24 16:07 CT abdomen pelvis wo con Stat 10/14/24 16:16 Complete Blood Count AUTO DIFF Stat Comprehensive Metabolic Panel Stat Lipase Stat PT [Prothrombin Time INR] Stat Albuterol/Ipratropium (Albuterol/Ipratropium 3 Ml Ampul) 3 ml INH RTQID [facility] Hydromorphone HCl (Hydromorphone 2 Mg Tablet) 2 mg PO Q3H PRN PRN Reason: Pain, Moderate (4-6) Hydromorphone HCl (Hydromorphone 2 Mg Tablet) 4 mg PO Q3H PRN PRN Reason: Pain, Severe (7-10) Lorazepam (Lorazepam 0.5 Mg Tablet) 0.5 mg PO DAILY PRN PRN Reason: Anxiety Metoprolol Tartrate (Metoprolol Ir 25 Mg Tablet) 12.5 mg PO BID [facility] Naloxone HCl (Naloxone 0.4 Mg/Ml Vial) 0.2 mg IV Q2MIN PRN PRN Reason: Opiate Reversal Non-Formulary Medication (Omeprazole) 20 mg PO DAILY [facility] Ondansetron HCl (Ondansetron 4 Mg/2 Ml Inj) 4 mg IV NOW PRN PRN Reason: Nausea And Vomiting Last Admin: 10/14/24 19:32 Dose: 4 mg Documented By: AM Ondansetron HCl (Ondansetron 4 Mg Odt) 4 mg PO NOW PRN PRN Reason: Nausea And Vomiting Trazodone HCl (Trazodone 50 Mg Tablet) 50 mg PO BEDTIME PRN PRN Reason: LORI Discontinued Medications Hydromorphone HCl (Hydromorphone 1 Mg Inj) 1 mg IV NOW ONE Stop: 10/14/24 19:18 Last Admin: 10/14/24 19:32 Dose: 1 mg Documented By: AM Hydromorphone HCl (Hydromorphone 1 Mg Inj) 1 mg IV NOW ONE Stop: 10/14/24 20:06 Last Admin: 10/14/24 20:14 Dose: 1 mg Documented By: RLC Non-Formulary Medication (Ipratropium-Albuterol [Combivent Respimat]) 1 puff INHALATION 4XD [facility] Vital Signs Vital signs: Vital Signs - 8 hr 10/14/24 15:59 10/14/24 17:33 10/14/24 17:34 Temperature 97.7 F Pulse Rate 77 Respiratory Rate 16 Blood Pressure 166/74 H 195/84 H Pulse Oximetry 99 98 Oxygen Delivery Method Room Air 10/14/24 17:34 10/14/24 18:00 10/14/24 18:00 Temperature Pulse Rate 75 71 Respiratory Rate Blood Pressure 163/75 H Pulse Oximetry 99 99 Oxygen Delivery Method 10/14/24 19:01 10/14/24 19:05 10/14/24 19:30 Temperature Pulse Rate 70 74 Respiratory Rate Blood Pressure 135/84 Pulse Oximetry 98 96 Oxygen Delivery Method 10/14/24 19:31 10/14/24 19:31 Temperature Pulse Rate 74 Respiratory Rate Blood Pressure 165/79 H Pulse Oximetry 96 Oxygen Delivery Method Room Air MDM - Abdominal Pain Lab Data 10/14/24 16:16 10/14/24 16:16 Labs: Lab Results 10/14/24 Range/Units 16:16 WBC 7.8 (4.5-11.0) X10^3/uL RBC 3.53 L (4.0-5.2) X10^6/uL Hgb 8.8 L (12.0-16.0) g/dL Hct 27.7 L (36-46) % MCV 78.4 L (80-100) fL MCH 24.9 L (26-34) PG MCHC 31.7 (30-36) % RDW 16.7 H (11.6-14.8) % Plt Count 367 (150-400) X10^3/uL Neut % (Auto) 80.0 H (50-75) % Lymph % (Auto) 8.8 L (25-40) % Ellis % (Auto) 6.5 (3-14) % Eos % (Auto) 3.8 (2-4) % Baso % (Auto) 0.9 (0-2) % Neut # (Auto) 6300 (0536-3498) /uL Lymph # (Auto) 700 L (9624-2171) /uL Ellis # (Auto) 500 (0-900) /uL Eos # (Auto) 300 (0-450) /uL Baso # (Auto) 100 (0-100) /uL PT 13.9 H (9.4-12.5) SECONDS INR 1.2 (0.9-1.3) Sodium 137 (137-145) mmol/L Potassium 4.2 (3.4-5.1) mmol/L Chloride 109 H (98-107) mmol/L Carbon Dioxide 18 L (22-32) mmol/L BUN 29 H (7-17) mg/dL Creatinine 1.63 H (0.52-1.04) mg/dL Estimated GFR 31 L (>60) mL/min BUN/Creatinine Ratio 17.8 (6-22) Glucose 100 H (70-99) mg/dL Calcium 9.3 (8.4-10.2) mg/dL Total Bilirubin 0.4 (0.2-1.3) mg/dL AST 15 (14-36) IU/L ALT 8 (<35) IU/L Alkaline Phosphatase 133 H (38-126) U/L Total Protein 8.0 (6.3-8.2) g/dL Albumin 3.7 (3.5-5.0) g/dL Globulin 4.3 H (1.7-4.1) g/dL Albumin/Globulin Ratio 0.9 L (1.0-2.8) Lipase 56 (23-300) U/L Point of care testing: Urine Dip Bedside Urine Glucose Negative Bedside Urine Bilirubin + 1 Bedside Urine Ketone - Negative Urine Specific [place] 1.020 Bedside Urine Occult Blood +++ Bedside Urine pH 6.0 Bedside Urine Protein ++ 100 Bedside Urine Urobilinogen - Negative Bedside Urine Nitrite + Positive Bedside Urine Leukocytes +++ [address] scan - abdomen/pelvis: Radiologist's Impression: [address] [address] [address] Scan Report Signed Patient: Sherlyn Ward MR#: [id number] : 1940 Acct:[id number] Age/Sex: 84 / F Date of Service: 10/14/24 Loc: ED Accession Number: [id number] Procedure: CT abdomen pelvis wo con Ordering Provider: Deejay Donahue D.O. PROCEDURE: CT ABDOMEN PELVIS WO CON INDICATIONS: L sided nephrostomy with pain TECHNIQUE: Axial sections were acquired from the lung bases to the pubic symphysis. Coronal and sagittal reformats were performed. For radiation dose reduction, the following was used: automated exposure control, adjustment of mA and/or kV according to patient size. COMPARISON: [facility], CT, CT ABDOMEN PELVIS WO CON, 05/31/2024, 9:16. FINDINGS: Image quality: Diagnostic. Lower Chest: Cardiomegaly. No pleural or pericardial effusion. URINARY: Right Kidney: Surgically absent. Right Ureter: Not seen. Left Kidney: Cortical renal thinning. Simple and hyperdense perinephric cysts present. There is a percutaneous nephrostomy with a pigtail coiled in the renal pelvis. Prominent parapelvic inflammation, however this appears chronic. No hydronephrosis. Left Ureter: Mid ureter is dilated and contains a coarse calcification measuring about 1 cm. Bladder: Completely decompressed. ABDOMEN: Liver: No contour-deforming solid mass. Gallbladder: No wall thickening or calcified stones. Biliary ducts: No biliary dilation. Pancreas: Moderate fatty infiltration. No ductal dilatation. Spleen: There is a prominent subcapsular hematoma surrounding approximately 50% to slightly greater than 50% of the lateral spleen from superior to inferior pole. This measures roughly 3.9 cm in thickness and is appearing to compress splenic parenchyma. A hematocrit level is seen.. There is no perisplenic fluid or hemorrhage. No retroperitoneal hematoma. Adrenal Glands: No adrenal nodules. Stomach and Bowel: The stomach is decompressed. Small bowel loops are decompressed. Normal quantity of colonic stool. Peritoneum: There is no free fluid or free air. No dependently layering hemorrhage or intraperitoneal hematoma. Ventral Wall: Large bowel containing left anterior and right posterior abdominal wall hernias. Fat containing midline hernias. Bowel containing anterior midline pelvic hernia. Abdominal Nodes: Several prominent retroperitoneal lymph nodes to the left of the aorta. No matted or bulky adenopathy. Vessels: The abdominal aorta, IVC, and portal vein are of normal caliber. Heavy abdominal aortic atherosclerotic calcification. PELVIS: Pelvic Organs: Age-appropriate. Pelvic Nodes: Unremarkable. Miscellaneous: No inguinal hernias are seen. Bones: Left hip pin. Compression fracture of L5. Chronic disc and endplate degeneration in the upper lumbar spine. No suspicious bone lesions. IMPRESSION: Grade 2/3 subcapsular splenic hematoma, probably subacute and most likely symptomatic. No perisplenic or intraperitoneal hemorrhage and no significant free pelvic fluid. Preliminary findings discussed with Dr. Donahue in the emergency room at 17:29 hours. Left percutaneous nephrostomy tube in stable position. Chronic left mid ureteral calculus. Other findings are stable. MDM Narrative Medical decision making narrative: Vital signs, nurse triage note, medication list, previous ER visits, and all imaging studies reviewed. CT abdomen and pelvis showed grade 2 3 subcapsular splenic hematoma probably subacute and most likely symptomatic. No perisplenic or intraperitoneal hemorrhage and no significant free pelvic fluid. Left percutaneous nephrostomy tubes in stable positioning. Chronic left mid ureteral calculus. Case discussed with Dr. Zhang surgeon on-call who has graciously come in to see patient at bedside we will be admitted to hospitalist service with . Hemoglobin 8.8, hematocrit 27.7 platelets 367 BUN 29 and 1.63 glucose 100. Differential diagnosis pancreatitis, kidney stone, kidney infection diverticulitis Discharge Plan Departure Patient Disposition: Admitted As Inpatient Clinical Impression: Hematoma of spleen without rupture of capsule Admit Date/Time: 10/14/24 20:20 Admit Provider: Fahad Zhang
[2024-10-14 19:32] LABS: INR 1.2 (0.9-1.3); Prothrombin Time 13.9 SECONDS (9.4-12.5)
[2024-10-14] MEDS: ONDANSETRON 4 MG/2 ML INJ IV (19:32)
[2024-10-14] MEDS: HYDROMORPHONE 1 MG INJ IV ×2 (19:32→20:14)
--- NOTE | 2024-10-14 20:12 | PM.HP.IH.1 ---
History of Present Illness History of Present Illness Date Patient Seen: 10/14/24 Time Patient Seen: 20:13 Chief complaint: Severe Lt side abdominal pain, 138/90 bpm Narrative: The patient is an 84-year-old female with multiple comorbidities to include renal cell carcinoma, rectal carcinoma, and hypertension who presents with new onset of left upper quadrant left flank pain. This pain is radiating to her left shoulder. Of note, the patient fell approximately 3 months ago in the bathroom but never presented to an emergency department. Yesterday evening she developed some left upper quadrant pain that has slowly progressed to be more intense today. She denies nausea and vomiting. Of note she has had [address] scans, 1 in April and 1 in May, in which no splenic hematoma was found. She denies any recent falls. 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 Pulmonary embolism Rectal cancer Rectal carcinoma Retained urethral stent S/p nephrectomy Unspecified essential hypertension Surgical History H/O lithotripsy H/O nephrostomy History of low anterior resection of rectum History of ureter stent Family History Mother Hypertension Cancer Son Hypertension Grandfather Heart disease Cancer Granddaughter Eczema Social History marital status: number of children: 1 household members: children lives independently: Yes occupational status: previously employed and other Tobacco: How many years used: 60 alcohol intake: current substance use type: does not use caffeine: Yes Type(s) of exercise: none Meds Home Medications and Allergies Home Medications ?Medication ?Instructions ?Recorded ?Confirmed ?Type latanoprost 0.005 % eye drops 1 drp EYE-BOTH BEDTIME 02/09/18 10/14/24 History metoprolol tartrate 25 mg tablet 12.5 mg PO BID 05/06/22 10/14/24 History ipratropium 0.5 mg-albuterol 3 mg 3 ml inhalation 4XD 07/16/22 10/14/24 History (2.5 mg base)/3 mL nebulization soln ipratropium 20 mcg-albuterol 100 1 puff inhalation 4XD 03/31/23 10/14/24 History mcg/actuation mist for inhalation (Combivent Respimat) apixaban 2.5 mg tablet 2.5 mg PO BID 03/17/24 10/14/24 History betamethasone dipropionate 0.05 % 1 applic topical DAILY PRN Rash 03/17/24 10/14/24 History topical cream ergocalciferol (vitamin D2) 1,250 1,250 mcg PO QWEEK 03/17/24 10/14/24 History mcg (50,000 unit) capsule lorazepam 0.5 mg tablet 0.5 mg PO DAILY PRN Anxiety 03/17/24 10/14/24 History miconazole nitrate 2 % topical 1 applic topical DAILY 03/17/24 10/14/24 History cream omeprazole 20 mg capsule,delayed 20 mg PO DAILY 03/17/24 10/14/24 History release trazodone 50 mg tablet 50 mg PO BEDTIME PRN LORI 03/17/24 10/14/24 History Allergies Allergy/AdvReac Type Severity Reaction Status Date / Time cashew nut Allergy Severe Anaphylaxis Verified 10/14/24 15:05 ciprofloxacin (CIPROFLOXACIN) Allergy Intermediate HIVES UP Verified 10/14/24 15:05 ARM RIGHT AFTER IV DOSE STARTED nitrofurantoin (From Allergy Intermediate rash, Verified 10/14/24 15:05 MACRODANTIN) itching Review of Systems Review of Systems ROS: Yes All systems reviewed with the patient and are negative except as otherwise documented Exam Vital Signs (past 8 hours): - 10/14/24 15:59 10/14/24 17:33 10/14/24 17:34 Temperature 97.7 F Pulse Rate 77 Respiratory Rate 16 Blood Pressure 166/74 H 195/84 H Pulse Oximetry 99 98 Oxygen Delivery Method Room Air 10/14/24 17:34 10/14/24 18:00 10/14/24 18:00 Temperature Pulse Rate 75 71 Respiratory Rate Blood Pressure 163/75 H Pulse Oximetry 99 99 Oxygen Delivery Method 10/14/24 19:01 10/14/24 19:05 10/14/24 19:30 Temperature Pulse Rate 70 74 Respiratory Rate Blood Pressure 135/84 Pulse Oximetry 98 96 Oxygen Delivery Method 10/14/24 19:31 10/14/24 19:31 Temperature Pulse Rate 74 Respiratory Rate Blood Pressure 165/79 H Pulse Oximetry 96 Oxygen Delivery Method Room Air Oxygen Delivery Method Room Air Narrative Exam Narrative: Patient is alert and oriented in some mild distress. There is no obvious deformity or crepitance the facial structures. Neck is supple and essentially nontender. Chest reveals no chest wall tenderness or crepitance. Lungs are clear to auscultation bilaterally Cardiac reveals a regular rate and rhythm Abdomen is soft with some exquisite left upper quadrant tenderness with some voluntary guarding. Patient has a left lower quadrant ostomy with a large parastomal hernia. Extremities show some deformity but no crepitance. Legs have diffuse tenderness to palpation. She is weak in all [address] scan - abdomen: Radiologist's impression: [place] [address] CT Scan Report Signed Patient: Sherlyn Ward MR#: [id number] : 1940 Acct:[id number] Age/Sex: 84 / F Date of Service: 10/14/24 Loc: ED Accession Number: [id number] Procedure: CT abdomen pelvis wo con Ordering Provider: Deejay Donahue D.O. PROCEDURE: CT ABDOMEN PELVIS WO CON INDICATIONS: L sided nephrostomy with pain TECHNIQUE: Axial sections were acquired from the lung bases to the pubic symphysis. Coronal and sagittal reformats were performed. For radiation dose reduction, the following was used: automated exposure control, adjustment of mA and/or kV according to patient size. COMPARISON: [facility], CT, CT ABDOMEN PELVIS WO CON, 05/31/2024, 9:16. FINDINGS: Image quality: Diagnostic. Lower Chest: Cardiomegaly. No pleural or pericardial effusion. URINARY: Right Kidney: Surgically absent. Right Ureter: Not seen. Left Kidney: Cortical renal thinning. Simple and hyperdense perinephric cysts present. There is a percutaneous nephrostomy with a pigtail coiled in the renal pelvis. Prominent parapelvic inflammation, however this appears chronic. No hydronephrosis. Left Ureter: Mid ureter is dilated and contains a coarse calcification measuring about 1 cm. Bladder: Completely decompressed. ABDOMEN: Liver: No contour-deforming solid mass. Gallbladder: No wall thickening or calcified stones. Biliary ducts: No biliary dilation. Pancreas: Moderate fatty infiltration. No ductal dilatation. Spleen: There is a prominent subcapsular hematoma surrounding approximately 50% to slightly greater than 50% of the lateral spleen from superior to inferior pole. This measures roughly 3.9 cm in thickness and is appearing to compress splenic parenchyma. A hematocrit level is seen.. There is no perisplenic fluid or hemorrhage. No retroperitoneal hematoma. Adrenal Glands: No adrenal nodules. Stomach and Bowel: The stomach is decompressed. Small bowel loops are decompressed. Normal quantity of colonic stool. Peritoneum: There is no free fluid or free air. No dependently layering hemorrhage or intraperitoneal hematoma. Ventral Wall: Large bowel containing left anterior and right posterior abdominal wall hernias. Fat containing midline hernias. Bowel containing anterior midline pelvic hernia. Abdominal Nodes: Several prominent retroperitoneal lymph nodes to the left of the aorta. No matted or bulky adenopathy. Vessels: The abdominal aorta, IVC, and portal vein are of normal caliber. Heavy abdominal aortic atherosclerotic calcification. PELVIS: Pelvic Organs: Age-appropriate. Pelvic Nodes: Unremarkable. Miscellaneous: No inguinal hernias are seen. Bones: Left hip pin. Compression fracture of L5. Chronic disc and endplate degeneration in the upper lumbar spine. No suspicious bone lesions. IMPRESSION: Grade 2/3 subcapsular splenic hematoma, probably subacute and most likely symptomatic. No perisplenic or intraperitoneal hemorrhage and no significant free pelvic fluid. Preliminary findings discussed with Dr. Donahue in the emergency room at 17:29 hours. Left percutaneous nephrostomy tube in stable position. Chronic left mid ureteral calculus. Other findings are stable. Dictated by: Carina Rubio M.D. on 10/14/2024 at 17:24 Approved by: Carina Rubio M.D. on 10/14/2024 at 17:39 Labs 10/14/24 16:16 10/14/24 16:16 Labs: Laboratory Results - last 24 hr 10/14/24 16:16 WBC 7.8 RBC 3.53 L Hgb 8.8 L Hct 27.7 L MCV 78.4 L MCH 24.9 L MCHC 31.7 RDW 16.7 H Plt Count 367 Neut % (Auto) 80.0 H Lymph % (Auto) 8.8 L [place] % (Auto) 6.5 Eos % (Auto) 3.8 Baso % (Auto) 0.9 Neut # (Auto) 6300 Lymph # (Auto) 700 L [place] # (Auto) 500 Eos # (Auto) 300 Baso # (Auto) 100 PT 13.9 H INR 1.2 Sodium 137 Potassium 4.2 Chloride 109 H Carbon Dioxide 18 L BUN 29 H Creatinine 1.63 H Estimated GFR 31 L BUN/Creatinine Ratio 17.8 Glucose 100 H Calcium 9.3 Total Bilirubin 0.4 AST 15 ALT 8 Alkaline Phosphatase 133 H Total Protein 8.0 Albumin 3.7 Globulin 4.3 H Albumin/Globulin Ratio 0.9 L Lipase 56 Assessment & Plan Assessment and plan (1) History of renal cell carcinoma: Status: Acute (2) Nephrostomy present: Status: Acute (3) Spleen hematoma: Qualifiers: Encounter type: initial encounter Qualified Code(s): S36.029A - Unspecified contusion of spleen, initial encounter Status: Acute (4) Parastomal hernia 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: Problem details: enlarging parastomal and ventral hernias Status: Inactive (5) Chronic renal disease, stage 3, moderately decreased glomerular filtration rate (GFR) between 30-59 mL/min/1.73 square meter: Problem details: Status: Chronic (6) Anticoagulated: Problem details: lab is followed, currently 1.8 INR, no change for now. Status: Chronic (7) Unspecified essential hypertension: Status: Acute (8) Acute on chronic anemia: Status: Acute Plan Given the fact the patient fell 3 months ago but did not present to the hospital and we do not know what her spleen looked at the time and new onset of left upper quadrant pain with a ?subacute? splenic hematoma seen on CT today, I recommend an admission for observation. Plan serial H&Hs. We will ask the hospitalist see the patient to aid in her other chronic illnesses. We will need to stop the patient's anticoagulation. Time-Based Coding :: [TOTAL MINUTES] spent with patient and on the chart (including review of chart, obtaining history, exam, reviewing outside data, placing orders, documenting exam and treatment plan, and counseling patient) on [DATE]. PROFEE Pattern Generator Operator Document charge(s): Yes Charge Codes Initial inpatient/observation care: [id number]
[2024-10-14] MEDS: METOPROLOL IR 25 MG TABLET 12.5 MG PO (21:31)
[2024-10-14] MEDS: SODIUM CHLORIDE 0.9% FLUSH 10 ML IV (21:35)
[2024-10-14] MEDS: ALBUTEROL/IPRATROPIUM 3 ML AMPUL INH (21:35)
[2024-10-14 22:01] LABS: Add Manual Diff / Slide Review NO; Hematocrit 26.7 % (36-46); Hemoglobin 8.5 g/dL (12.0-16.0); Lymphocytes Absolute Auto 1200 /uL (1100-4500); Mean Corpuscular HGB Conc 31.6 % (30-36); Mean Corpuscular Hemoglobin 24.8 PG (26-34); Mean Corpuscular Volume 78.4 fL (80-100); Platelet Count 338 X10^3/uL (150-400)
[2024-10-14] MEDS: HYDROMORPHONE 2 MG TABLET 4 MG PO (23:58)
[2024-10-15] VITALS (7 sets, daily range): BP systolic 138–148; BP diastolic 45–59; PULSE 57–75; RESP 16–19; TEMP 35.9–36.5; O2SAT 95–99
--- NOTE | 2024-10-15 07:33 | P.CONS_ITS ---
History of Present Illness Consult details Date Patient Seen: 10/15/24 Time Patient Seen: 07:35 Chief complaint: Severe Lt side abdominal pain, 138/90 bpm Narrative: 84-year-old female with past medical history of rectal carcinoma, renal cell carcinoma, hypertension, chronic anemia baseline hemoglobin 7.8-6 8.1, COPD not oxygen dependent, neuropathy, pulmonary embolism on Eliquis presents with complaint of abdominal pain. Of note the patient also had a nephrostomy tube due to history of renal cell carcinoma. Per the patient's report, the patient started to have left flank pain that started at home yesterday. The patient did take her usual [place] but without much improvement of her pain. The patient also reports that about 3 months ago the patient had a mechanical fall in which she landed on her left side. The patient states that she did not think much of it and did not seek help at that time. Otherwise the patient denies any recent nausea, vomiting, fever, chills, diarrhea, GI bleed, chest pain, shortness of breath or syncope. In the emergency room, the patient was hemodynamically stable. Labs were relatively benign however with hemoglobin of 8.8 (baseline 7.8-8.1) creatinine 1.6 INR 1.2 lipase normal. Patient had a CT scan that shows possible subacute splenic hematoma. General surgery was called to evaluate the patient. Due to patient's multiple medical history and on medication general surgery requested that we consult on the case for medical management while they will take care as a primary for the splenic hematoma. Meds Home Medications and Allergies Home Medications ?Medication ?Instructions ?Recorded ?Confirmed ?Type latanoprost 0.005 % eye drops 1 drp EYE-BOTH BEDTIME 1 04/11/17 10/14/24 History metoprolol tartrate 25 mg tablet 12.5 mg PO BID 10/14/24 History ipratropium 0.5 mg-albuterol 3 mg 3 ml inhalation 4XD 07/16/22 10/14/24 History (2.5 mg base)/3 mL nebulization soln ipratropium 20 mcg-albuterol 100 1 puff inhalation 4XD 03/31/23 10/14/24 History mcg/actuation mist for inhalation (Combivent Respimat) apixaban 2.5 mg tablet 2.5 mg PO BID 03/17/2410/14 History betamethasone dipropionate 0.05 % 1 applic topical DOMINGO LY PRN Rash 03/17/24 10/14/24 History topical cream ergocalciferol (vitamin D2) 1,250 1,250 mcg PO QWEEK 1 05/18/23 10/14/24 History mcg (50,000 unit) capsule lorazepam 0.5 mg tablet 0.5 mg PO DAILY PRN Anxiety 03/17/24 10/14/24 History omeprazole 20 mg capsule,delayed 20 mg PO DAILY 10/14/24 History release trazodone 50 mg tablet 50 mg PO BEDTIME PRN LORI 10/14/24 History Held on 10/14/24. Instructions: not taking amlodipine 5 mg tablet 5 mg PO DAILY 10/14/2410/14 History diphenoxylate-atropine 2.5 1 tab PO 4XD PRN diarrhea 0 10/14/24 10/14/24 History mg-0.025 mg tablet oxycodone-acetaminophen 5 mg-325 1 tab PO Q6H PRN raul re pain 10/14/24 10/14/24 History mg tablet Allergies Allergy/AdvReac Type Severity Reaction Status Date / Time cashew nut Allergy Severe Anaphylaxis Verified 10/14/24 15:05 ciprofloxacin (CIPROFLOXACIN) Allergy Intermediate HIVES UP Verified 10/14/24 15:05 ARM RIGHT AFTER IV DOSE STARTED nitrofurantoin (From Allergy Intermediate rash, Verified 10/14/24 15:05 MACRODANTIN) itching Review of Systems Review of Systems ROS: Yes All systems reviewed with the patient and are negative except as otherwise documented Exam Vital Signs (past 8 hours): - 10/15/24 00:00 10/15/24 00:00 10/15/24 04:00 Temperature 97.0 F L 97.0 F L Pulse Rate 72 67 Respiratory Rate 19 18 Blood Pressure 148/59 H 138/58 L Pulse Oximetry 97 98 Oxygen Delivery Method Room Air Oxygen Delivery Method Room Air Narrative Exam Narrative: Physical Exam: GENERAL: The patient is not in any acute distressed. Awake and alert. HEENT: Nonicteric sclerae, PERRLA, EOMI. Oropharynx clear. Moist mucous membranes. Conjunctivae appear well perfused. HEART: Regular rate and rhythm without murmurs. No lower extremities edema. LUNGS: Clear to auscultation bilaterally. No wheezing, crackles or rhonchi ABDOMEN: Soft, positive bowel sounds, nontender. SKIN: No rash, no excessive bruising, petechiae, or purpura. NEUROLOGIC: AxO x 3. Cranial nerves II-XII intact without motor/sensory deficit. Objective Labs 10/14/24 21:45 10/14/24 16:16 Labs: Laboratory Results - last 24 hr 10/14/24 10/14/24 16:16 21:45 WBC 7.8 6.6 RBC 3.53 L 3.41 L Hgb 8.8 L 8.5 L Hct 27.7 L 26.7 L MCV 78.4 L 78.4 L MCH 24.9 L 24.8 L MCHC 31.7 31.6 RDW 16.7 H 16.5 H Plt Count 367 338 Neut % (Auto) 80.0 H 69.6 Lymph % (Auto) 8.8 L 17.7 L [place] % (Auto) 6.5 8.2 Eos % (Auto) 3.8 3.3 Baso % (Auto) 0.9 1.2 Neut # (Auto) 6300 4600 Lymph # (Auto) 700 L 1200 [place] # (Auto) 500 500 Eos # (Auto) 300 200 Baso # (Auto) 100 100 PT 13.9 H INR 1.2 Sodium 137 Potassium 4.2 Chloride 109 H Carbon Dioxide 18 L BUN 29 H Creatinine 1.63 H Estimated GFR 31 L BUN/Creatinine Ratio 17.8 Glucose 100 H Calcium 9.3 Total Bilirubin 0.4 AST 15 ALT 8 Alkaline Phosphatase 133 H Total Protein 8.0 Albumin 3.7 Globulin 4.3 H Albumin/Globulin Ratio 0.9 L Lipase 56 Blood Type A Positive Antibody Screen Negative [facility] Medical History Abnormal mammogram of right breast Allergic reaction Anticoagulated Arthritis Chronic renal disease, stage 3, moderately decreased glomerular filtration rate (GFR) between 30-59 mL/min/1.73 square meter Chronic UTI Colitis with rectal bleeding 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 Easy bruisability Gout History of COPD Hx of deep venous thrombosis Hx of fracture of femur Hx of gastroesophageal reflux (GERD) Hx of primary hypertension Hx of renal cell cancer Incontinence Leg swelling Lumbar hernia Neuropathy 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 Pulmonary embolism Rectal cancer Rectal carcinoma Retained urethral stent S/p nephrectomy Unspecified essential hypertension Surgical History H/O lithotripsy H/O nephrostomy History of low anterior resection of rectum History of ureter stent Family History Mother Hypertension Cancer Son Hypertension Grandfather Heart disease Cancer Granddaughter Eczema Social History marital status: number of children: 1 household members: children lives independently: Yes occupational status: previously employed and other Tobacco & Substance Use Smoking Status: Current every day smoker Tobacco: How many years used: 60 alcohol intake: current substance use type: does not use Diet and Exercise caffeine: Yes Type(s) of exercise: none Assessment & Plan Assessment & Plan narrative: Subacute splenic hematoma. General surgery is primary in the case. Defer all management to general surgery. History of pulmonary embolism . Hold Eliquis due to splenic hematoma and underlying chronic anemia with hemoglobin around 8. Once cleared by surgery can consider restarting Eliquis. Hypertension. Will hold home blood pressure medication in the setting of splenic hematoma. Will monitor closely and will treat blood pressure if needed. COPD. Not oxygen dependent. Patient has no sign exacerbation. Will resume home inhalers. Anxiety. Resume home Ativan. DVT prophylaxis SCDs Thank you for the consult. Medicine service will continue to follow the patient with you. Please feel free to call our service for any questions or concerns - As the provider of this telehealth evaluation, requested by the patient's evaluating physician, I attest that I introduced myself to the patient, provided my credentials and determined that telemedicine via a real-time, 2 way interactive audio and video platform is an appropriate and effective means of providing this service. - I reviewed the patient's chart and had a discussion with the member of the patient's treatment team. - The patient and I mutually agreed with continuation of this evaluation via telemedicine. The patient consented for the telemedicine evaluation. - This virtual encounter was taken place from [place] by Dr. Garry Miller. The patient was evaluated at [facility]. The encounter was approximately 35 minutes. The nurse was present during the entire time of the encounter and was able to move the stethoscope in appropriate directions. Time-Based Coding :: [TOTAL MINUTES] spent with patient and on the chart (including review of chart, obtaining history, exam, reviewing outside data, placing orders, documenting exam and treatment plan, and counseling patient) on [DATE].
--- NOTE | 2024-10-15 07:44 | PC.NURSE ---
Changed nephrostomy dressing, cleansed with saline soaked gauze, dried, skin prep applied, dressed with 2x fenestrated gauze & medipore. Colostomy appliance replaced by pt just before admit, no output observed, either gas or stool. Provider Leatha made aware.
[2024-10-15] MEDS: HYDROMORPHONE 2 MG TABLET PO ×4 (08:00→20:09)
[2024-10-15] MEDS: PANTOPRAZOLE DR 20 MG TABLET PO (08:05)
[2024-10-15] MEDS: METOPROLOL IR 25 MG TABLET 12.5 MG PO ×2 (08:05→20:03)
[2024-10-15] MEDS: SODIUM CHLORIDE 0.9% FLUSH 10 ML IV ×2 (08:06→20:11)
[2024-10-15] MEDS: ALBUTEROL/IPRATROPIUM 3 ML AMPUL INH ×3 (09:51→19:27)
--- NOTE | 2024-10-15 10:11 | PM.PN.IH.1 ---
Subjective Subjective Date Patient Seen: 10/15/24 Time Patient Seen: 10:11 Interval history: Patient is doing well. She continues to complain of left upper quadrant pain with radiation to her left shoulder. Exam Vital Signs (past 8 hours): - 10/15/24 04:00 Temperature 97.0 F L Pulse Rate 67 Respiratory Rate 18 Blood Pressure 138/58 L Pulse Oximetry 98 Oxygen Delivery Method Room Air Narrative Exam Narrative: Lungs are clear to auscultation bilaterally Cardiac reveals a regular rate and rhythm Abdomen is soft with mild left upper quadrant tenderness. Objective Labs 10/14/24 21:45 10/14/24 16:16 Labs: Laboratory Results - last 24 hr 10/14/24 10/14/24 16:16 21:45 WBC 7.8 6.6 RBC 3.53 L 3.41 L Hgb 8.8 L 8.5 L Hct 27.7 L 26.7 L MCV 78.4 L 78.4 L MCH 24.9 L 24.8 L MCHC 31.7 31.6 RDW 16.7 H 16.5 H Plt Count 367 338 Neut % (Auto) 80.0 H 69.6 Lymph % (Auto) 8.8 L 17.7 L [place] % (Auto) 6.5 8.2 Eos % (Auto) 3.8 3.3 Baso % (Auto) 0.9 1.2 Neut # (Auto) 6300 4600 Lymph # (Auto) 700 L 1200 [place] # (Auto) 500 500 Eos # (Auto) 300 200 Baso # (Auto) 100 100 PT 13.9 H INR 1.2 Sodium 137 Potassium 4.2 Chloride 109 H Carbon Dioxide 18 L BUN 29 H Creatinine 1.63 H Estimated GFR 31 L BUN/Creatinine Ratio 17.8 Glucose 100 H Calcium 9.3 Total Bilirubin 0.4 AST 15 ALT 8 Alkaline Phosphatase 133 H Total Protein 8.0 Albumin 3.7 Globulin 4.3 H Albumin/Globulin Ratio 0.9 L Lipase 56 Blood Type A Positive Antibody Screen Negative COUNTS INCLUDE 234 BEDS AT THE [facility] Medical History Abnormal mammogram of right breast Allergic reaction Anticoagulated Arthritis Chronic renal disease, stage 3, moderately decreased glomerular filtration rate (GFR) between 30-59 mL/min/1.73 square meter Chronic UTI Colitis with rectal bleeding 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 Easy bruisability Gout History of COPD Hx of deep venous thrombosis Hx of fracture of femur Hx of gastroesophageal reflux (GERD) Hx of primary hypertension Hx of renal cell cancer Incontinence Leg swelling Lumbar hernia Neuropathy 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 Pulmonary embolism Rectal cancer Rectal carcinoma Retained urethral stent S/p nephrectomy Unspecified essential hypertension Surgical History H/O lithotripsy H/O nephrostomy History of low anterior resection of rectum History of ureter stent Family History Mother Hypertension Cancer Son Hypertension Grandfather Heart disease Cancer Granddaughter Eczema Social History marital status: number of children: 1 household members: children lives independently: Yes occupational status: previously employed and other Smoking Status: Current every day smoker Tobacco: How many years used: 60 alcohol intake: current substance use type: does not use caffeine: Yes Type(s) of exercise: none Assessment & Plan Assessment and plan (1) Hematoma of spleen without rupture of capsule: Status: Acute Plan We will continue to monitor her H and H for next 24 hours. Is stable will discharge to home. We will need to discuss her anticoagulation with the hospitalist in reference to the splenic hematoma. Time-Based Coding :: [TOTAL MINUTES] spent with patient and on the chart (including review of chart, obtaining history, exam, reviewing outside data, placing orders, documenting exam and treatment plan, and counseling patient) on [DATE]. PROFEE Facilities Mechanical Design Engineer Document charge(s): Yes
--- NOTE | 2024-10-15 14:07 | CM.DANOTE ---
Initial DCP Assessment Note Pt is a 84 yo female, resident of [place], general surgery following for Hematoma of spleen without rupture of capsule. H+H being monitored closely. PCP: Eric Grover Payer: HARLAN/LEONARD Reviewed chart, pt discussed in multidisciplinary rounds this morning. Monitor H+H, likely home within 24 hrs if numbers are WNL. Patient lives mostly indp with use of cane vs FWW in a MIL on her son's property in [place]. Patient is current with [facility]. F2F and HH orders with H+P and DC Summary needs to be sent to [facility] for resumption. No barriers identified at this time to patient's safe discharge home w/family to assist; HH services and close outpatient f/u recommended. Social work team will plan to follow clinical course closely. THERESE Mas Discharge Planning/Care Management CM Discharge Assessment Start: 10/14/24 20:37 Freq: Status: Active Protocol: Document 10/15/24 14:05 JANI (Rec: 10/15/24 14:07 JANI [id number]) Discharge Planning Assessment Assigned Discharge THERESE Martins Professor Of [employer] Planning DPOA/Assigned balaji Hammond Designee Name Contact Information [phone] Advance Directives? No Advance Directives Yes on File History Provided By Patient,Medical Record Prior Living House Arrangements Household Members children Comment Patient lives in a MIL suite on her son's property Type of Relies on Others transporation used prior to admit Independent with ADL Yes 's Is patient alert and Yes oriented? Needs Assistance Home Chores / Shopping With Patient/Family Home with Home Health Preference Discharge Plan Home with Home Health Transportation son in POV Arrangement Referrals Initiated Home Health Additional Comment [facility] resumpion
[2024-10-15] MEDS: ACETAMINOPHEN 325 MG TABLET 650 MG PO (17:54)
[2024-10-15] MEDS: CELECOXIB 200 MG CAPSULE PO (20:12)
[2024-10-16 00:10] VITALS: BP 137/75; PULSE 68; RESP 17; TEMP 36.3; O2SAT 97
[2024-10-16 04:15] VITALS: BP 153/54; PULSE 67; RESP 18; TEMP 36.2; O2SAT 96
[2024-10-16] MEDS: ALBUTEROL/IPRATROPIUM 3 ML AMPUL INH (07:34)
[2024-10-16 07:42] VITALS: PULSE 68; RESP 18; O2SAT 95
[2024-10-16 08:00] VITALS: BP 159/42; PULSE 75; RESP 17; TEMP 36.1; O2SAT 96
[2024-10-16] MEDS: HYDROMORPHONE 2 MG TABLET PO ×3 (08:34→14:33)
[2024-10-16] MEDS: CELECOXIB 200 MG CAPSULE PO (08:35)
[2024-10-16] MEDS: PANTOPRAZOLE DR 20 MG TABLET PO (08:35)
[2024-10-16] MEDS: METOPROLOL IR 25 MG TABLET 12.5 MG PO (08:36)
[2024-10-16] MEDS: SODIUM CHLORIDE 0.9% FLUSH 10 ML IV (08:39)
--- NOTE | 2024-10-16 10:57 | PM.PN.1 ---
Exam Vital Signs (past 8 hours): - 10/16/24 04:15 10/16/24 07:42 10/16/24 08:00 Temperature 97.2 F L 96.9 F L Pulse Rate 67 68 75 Respiratory Rate 18 18 17 Blood Pressure 153/54 H 159/42 H Pulse Oximetry 96 95 96 Oxygen Flow Rate 0 0 0 Oxygen Delivery Method Room Air Oxygen Flow Rate 0 Objective Labs 10/14/24 21:45 10/14/24 16:16 [facility] Medical History Abnormal mammogram of right breast Allergic reaction Anticoagulated Arthritis Chronic renal disease, stage 3, moderately decreased glomerular filtration rate (GFR) between 30-59 mL/min/1.73 square meter Chronic UTI Colitis with rectal bleeding 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 Easy bruisability Gout History of COPD Hx of deep venous thrombosis Hx of fracture of femur Hx of gastroesophageal reflux (GERD) Hx of primary hypertension Hx of renal cell cancer Incontinence Leg swelling Lumbar hernia Neuropathy 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 Pulmonary embolism Rectal cancer Rectal carcinoma Retained urethral stent S/p nephrectomy Unspecified essential hypertension Surgical History H/O lithotripsy H/O nephrostomy History of low anterior resection of rectum History of ureter stent Family History Mother Hypertension Cancer Son Hypertension Grandfather Heart disease Cancer Granddaughter Eczema Social History marital status: number of children: 1 household members: children lives independently: Yes occupational status: previously employed and other Smoking Status: Current every day smoker Tobacco: How many years used: 60 alcohol intake: current substance use type: does not use caffeine: Yes Type(s) of exercise: none Assessment & Plan Assessment & Plan narrative: Subacute splenic hematoma. General surgery is primary in the case. Defer all management to general surgery. History of pulmonary embolism . Hold Eliquis due to splenic hematoma and underlying chronic anemia with hemoglobin around 8. Once cleared by surgery can consider restarting Eliquis. Hypertension. Will hold home blood pressure medication in the setting of splenic hematoma. Will monitor closely and will treat blood pressure if needed. COPD. Not oxygen dependent. Patient has no sign exacerbation. Will resume home inhalers. Anxiety. Resume home Ativan. DVT prophylaxis SCDs Thank you for the consult. Medicine service will continue to follow the patient with you. Please feel free to call our service for any questions or concerns Time-Based Coding :: [TOTAL MINUTES] spent with patient and on the chart (including review of chart, obtaining history, exam, reviewing outside data, placing orders, documenting exam and treatment plan, and counseling patient) on [DATE].
[2024-10-16 11:28] LABS: Hematocrit 26.1 % (36-46); Hemoglobin 8.5 g/dL (12.0-16.0); Mean Corpuscular HGB Conc 32.5 % (30-36); Mean Corpuscular Hemoglobin 25.5 PG (26-34); Mean Corpuscular Volume 78.4 fL (80-100); Platelet Count 308 X10^3/uL (150-400)
--- NOTE | 2024-10-16 11:54 | EKG_ITS ---
[facility] [address] [place] [address] Test Date: 2024-10-16 Pat Name: Sherlyn Ward Department: [facility] Room: 210 Gender: Female Counter Roller: : 1940 Requested By: Order Number: [id number] Reading MD: Jomar Adan Measurements Intervals [place] Rate: 66 P: 34 OR: 184 QRS: 2 QRSD: 80 T: 33 QT: 414 QTc: 434 Interpretive Statements Normal sinus rhythm Electronically Signed On 10-17-2024 8:41:33 PDT by Jomar Adan
[2024-10-16 12:16] LABS: Troponin I < 0.012 ng/mL (0.01-0.034)
[2024-10-16 12:30] VITALS: BP 132/52; PULSE 68; RESP 16; TEMP 35.7; O2SAT 98
--- NOTE | 2024-10-16 13:25 | P.PN_ITS ---
Subjective Subjective Date Patient Seen: 10/16/24 Time Patient Seen: 13:25 Interval history: The patient still complains of left lower quadrant pain but otherwise is doing okay. Exam Vital Signs (past 8 hours): - 10/16/24 07:42 10/16/24 07:50 10/16/24 08:00 Temperature 96.9 F L Pulse Rate 68 75 Respiratory Rate 18 17 Blood Pressure 159/42 H Pulse Oximetry 95 96 Oxygen Delivery Method Room Air Oxygen Flow Rate 0 0 10/16/24 12:30 Temperature 96.2 F L Pulse Rate 68 Respiratory Rate 16 Blood Pressure 132/52 L Pulse Oximetry 98 Oxygen Delivery Method Oxygen Flow Rate 0 Oxygen Delivery Method Room Air Oxygen Flow Rate 0 Narrative Exam Narrative: Lungs are clear to auscultation bilaterally Abdomen is soft with mild left upper quadrant tenderness without guarding or rigidity. 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 Easy bruisability Gout History of COPD Hx of deep venous thrombosis Hx of fracture of femur Hx of gastroesophageal reflux (GERD) Hx of primary hypertension Hx of renal cell cancer Incontinence Leg swelling Lumbar hernia Neuropathy 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 Pulmonary embolism Rectal cancer Rectal carcinoma Retained urethral stent S/p nephrectomy Unspecified essential hypertension Surgical History H/O lithotripsy H/O nephrostomy History of low anterior resection of rectum History of ureter stent Family History Mother Hypertension Cancer Son Hypertension Grandfather Heart disease Cancer Granddaughter Eczema Social History marital status: number of children: 1 household members: children lives independently: Yes occupational status: previously employed and other Smoking Status: Current every day smoker Tobacco: How many years used: 60 alcohol intake: current substance use type: does not use caffeine: Yes Type(s) of exercise: none Assessment & Plan Assessment and plan (1) Hematoma of spleen without rupture of capsule: Status: Acute (2) Anticoagulated: Problem details: lab is followed, currently 1.8 INR, no change for now. Status: Chronic (3) Acute on chronic anemia: Status: Acute Plan Patient's H and H has been stable over the past 36 hours. We will plan to discharge her to home. I have asked the hospitalist to address the anticoagulation issues. Time-Based Coding :: [TOTAL MINUTES] spent with patient and on the chart (including review of chart, obtaining history, exam, reviewing outside data, placing orders, documenting exam and treatment plan, and counseling patient) on [DATE]. PROFEE Director [employer] Document charge(s): Yes
--- NOTE | 2024-10-16 13:25 | PM.DS.1 ---
History of Present Illness History of Present Illness Date Patient Seen: 10/16/24 Chief complaint: Severe Lt side abdominal pain, 138/90 bpm Narrative: 84-year-old female with past medical history of rectal carcinoma, renal cell carcinoma, hypertension, chronic anemia baseline hemoglobin 7.8-6 8.1, COPD not oxygen dependent, neuropathy, pulmonary embolism on Eliquis presents with complaint of abdominal pain. Of note the patient also had a nephrostomy tube due to history of renal cell carcinoma. Per the patient's report, the patient started to have left flank pain that started at home yesterday. The patient did take her usual [place] but without much improvement of her pain. The patient also reports that about 3 months ago the patient had a mechanical fall in which she landed on her left side. The patient states that she did not think much of it and did not seek help at that time. Otherwise the patient denies any recent nausea, vomiting, fever, chills, diarrhea, GI bleed, chest pain, shortness of breath or syncope. In the emergency room, the patient was hemodynamically stable. Labs were relatively benign however with hemoglobin of 8.8 (baseline 7.8-8.1) creatinine 1.6 INR 1.2 lipase normal. Patient had a CT scan that shows possible subacute splenic hematoma. General surgery was called to evaluate the patient. Due to patient's multiple medical history and on medication general surgery requested that we consult on the case for medical management while they will take care as a primary for the splenic hematoma. Discharge Providers Provider Date of admission: 10/14/24 20:20 Discharge Date: 10/16/24 Primary care physician: Eric Grover MD Consults: 10/14/24 20:50 Consult to [facility] [place] - [employer] Routine Comment: [employer] Consult needed for:: Other reason (Comment) Discharge provider: Mark Wakefield MD Summary Hospital Course Hospital Course: Subacute splenic hematoma. Hemoglobin holding steady at 8.5. Follow-up with General surgery. History of pulmonary embolism and DVT 2010. Decision to continue holding Eliquis due to splenic hematoma and underlying chronic anemia with hemoglobin around 8. Reconsider and discuss this with her primary care physician, Dr. Grover in the next 2 weeks. Hypertension. Held home medicines and then resumed amlodipine and metoprolol at the time of discharge. COPD. Not oxygen dependent. Patient has no sign exacerbation. Continue inhalers. Acute versus chronic anemia. Hemoglobin was 7.8 and May. Hemoglobin is 8.5 now. MCV is 78.9. -begin iron and vitamin-C. -follow up with Dr. Grover soon. Anxiety. Resume home Ativan. Status at Discharge Cognitive/behavioral status at discharge: oriented Functional status at discharge: independent ambulation Overall status at discharge: patient is back to baseline Exam Vital Signs (past 8 hours): - 10/16/24 07:42 10/16/24 07:50 10/16/24 08:00 Temperature 96.9 F L Pulse Rate 68 75 Respiratory Rate 18 17 Blood Pressure 159/42 H Pulse Oximetry 95 96 Oxygen Delivery Method Room Air Oxygen Flow Rate 0 0 10/16/24 12:30 Temperature 96.2 F L Pulse Rate 68 Respiratory Rate 16 Blood Pressure 132/52 L Pulse Oximetry 98 Oxygen Delivery Method Oxygen Flow Rate 0 Oxygen Delivery Method Room Air Oxygen Flow Rate 0 Narrative Exam Narrative: She is alert and oriented x3. No apparent distress. She has trace left ankle edema. Lungs are clear to auscultation bilaterally. Heart is regular rate and rhythm without murmur. Abdomen is soft, bowel sounds positive, mildly tender left upper quadrant. 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 Easy bruisability Gout History of COPD Hx of deep venous thrombosis Hx of fracture of femur Hx of gastroesophageal reflux (GERD) Hx of primary hypertension Hx of renal cell cancer Incontinence Leg swelling Lumbar hernia Neuropathy 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 Pulmonary embolism Rectal cancer Rectal carcinoma Retained urethral stent S/p nephrectomy Unspecified essential hypertension Surgical History H/O lithotripsy H/O nephrostomy History of low anterior resection of rectum History of ureter stent Family History Mother Hypertension Cancer Son Hypertension Grandfather Heart disease Cancer Granddaughter Eczema Social History marital status: number of children: 1 household members: children lives independently: Yes occupational status: previously employed and other Smoking Status: Current every day smoker Tobacco: How many years used: 60 alcohol intake: current substance use type: does not use caffeine: Yes Type(s) of exercise: none Discharge Assessment & Plan Assessment and Plan Assessment: Patient with a stable H&H over 36 hours. We will discharge her home today. I have asked the hospitalist to address her anticoagulation. Plan of Treatment: Discharged to home Discharge Plan Discharge Plan Patient Disposition: Home Provider Discharge Comment: Follow up with Dr. Grover next week Discharge orders & Medications Prescriptions: New celecoxib [Celebrex] 200 mg Capsule 200 mg PO BID Qty: 30 0RF hydromorphone 2 mg Tablet 2 mg PO Q3H PRN (Reason: Pain, Moderate (4-6)) Qty: 30 0RF ferrous sulfate 325 mg (65 mg iron) tablet 325 mg PO DAILY Qty: 30 0RF ascorbic acid (vitamin C) 500 mg capsule 500 mg PO DAILY Qty: 30 0RF Continued latanoprost 0.005 % drops 1 drp EYE-BOTH BEDTIME ipratropium-albuterol 0.5 mg-3 mg(2.5 mg base)/3 mL solution for nebulization 3 ml INHALATION 4XD Patient Comments: USE 1 VIAL VIA NEBULIZER FOUR TIMES DAILY diphenoxylate-atropine 2.5-0.025 mg tablet 1 tab PO 4XD PRN (Reason: diarrhea) amlodipine 5 mg tablet 5 mg PO DAILY oxycodone-acetaminophen 5-325 mg tablet 1 tab PO Q6H PRN (Reason: severe pain) metoprolol tartrate 25 mg Tablet 12.5 mg PO BID Combivent Respimat 20-100 mcg/actuation mist 1 puff INHALATION 4XD betamethasone dipropionate 0.05 % cream 1 applic topical DAILY PRN (Reason: Rash) ergocalciferol (vitamin D2) 1,250 mcg (50,000 unit) capsule 1,250 mcg PO QWEEK lorazepam 0.5 mg tablet 0.5 mg PO DAILY PRN (Reason: Anxiety) omeprazole 20 mg capsule,delayed release(DR/EC) 20 mg PO DAILY trazodone 50 mg tablet 50 mg PO BEDTIME PRN (Reason: LORI) Discontinued apixaban 2.5 mg tablet 2.5 mg PO BID Follow up/Referrals: Eric Grover MD [Primary Care Provider, [facility]] Discharge Health Status Multidrug resistant organism: No MDRO Diet/Activity/Treatments Diet: Regular Visit Report/Discharge Packet Stand Alone Forms: Patient Portal/API, Stroke Signs & Symptoms Discharge Data Primary Care Provider: Eric Grover Attending Provider: Fahad Zhang Admit Date/Time: 10/14/24 20:20
--- NOTE | 2024-10-16 13:31 | P.DS_ITS ---
History of Present Illness History of Present Illness Date Patient Seen: 10/16/24 Chief complaint: Severe Lt side abdominal pain, 138/90 bpm Narrative: The patient is an 84-year-old female with multiple comorbidities to include renal cell carcinoma, rectal carcinoma, and hypertension who presents with new onset of left upper quadrant left flank pain. This pain is radiating to her left shoulder. Of note, the patient fell approximately 3 months ago in the bathroom but never presented to an emergency department. Yesterday evening she developed some left upper quadrant pain that has slowly progressed to be more intense today. She denies nausea and vomiting. Of note she has had [address] scans, 1 in April and 1 in May, in which no splenic hematoma was found. She denies any recent falls. Discharge Providers Provider Date of admission: 10/14/24 20:20 Discharge Date: 10/16/24 Primary care physician: Eric Grover MD Consults: 10/14/24 20:50 Consult to [facility] [place], [place] - [employer] Salesperson Routine Comment: [employer] Salesperson Consult needed for:: Other reason (Comment) Discharge provider: Fahad Zhang MD Summary Status at Discharge Cognitive/behavioral status at discharge: oriented Functional status at discharge: uses cane/walker Time Spent with Patient Time spent: Less than 30 minutes Exam Vital Signs (past 8 hours): - 10/16/24 07:42 10/16/24 07:50 10/16/24 08:00 Temperature 96.9 F L Pulse Rate 68 75 Respiratory Rate 18 17 Blood Pressure 159/42 H Pulse Oximetry 95 96 Oxygen Delivery Method Room Air Oxygen Flow Rate 0 0 10/16/24 12:30 Temperature 96.2 F L Pulse Rate 68 Respiratory Rate 16 Blood Pressure 132/52 L Pulse Oximetry 98 Oxygen Delivery Method Oxygen Flow Rate 0 Oxygen Delivery Method Room Air Oxygen Flow Rate 0 Narrative Exam Narrative: Lungs are clear to auscultation bilaterally Abdomen is soft, with mild left upper quadrant tenderness without guarding or rigidity. Bowel sounds are active Objective Imaging CT scan - abdomen: Radiologist's impression: PROCEDURE: CT ABDOMEN PELVIS WO CON INDICATIONS: L sided nephrostomy with pain TECHNIQUE: Axial sections were acquired from the lung bases to the pubic symphysis. Coronal and sagittal reformats were performed. For radiation dose reduction, the following was used: automated exposure control, adjustment of mA and/or kV according to patient size. COMPARISON: [facility], CT, CT ABDOMEN PELVIS WO CON, 05/31/2024, 9:16. FINDINGS: Image quality: Diagnostic. Lower Chest: Cardiomegaly. No pleural or pericardial effusion. URINARY: Right Kidney: Surgically absent. Right Ureter: Not seen. Left Kidney: Cortical renal thinning. Simple and hyperdense perinephric cysts present. There is a percutaneous nephrostomy with a pigtail coiled in the renal pelvis. Prominent parapelvic inflammation, however this appears chronic. No hydronephrosis. Left Ureter: Mid ureter is dilated and contains a coarse calcification measuring about 1 cm. Bladder: Completely decompressed. ABDOMEN: Liver: No contour-deforming solid mass. Gallbladder: No wall thickening or calcified stones. Biliary ducts: No biliary dilation. Pancreas: Moderate fatty infiltration. No ductal dilatation. Spleen: There is a prominent subcapsular hematoma surrounding approximately 50% to slightly greater than 50% of the lateral spleen from superior to inferior pole. This measures roughly 3.9 cm in thickness and is appearing to compress splenic parenchyma. A hematocrit level is seen.. There is no perisplenic fluid or hemorrhage. No retroperitoneal hematoma. Adrenal Glands: No adrenal nodules. Stomach and Bowel: The stomach is decompressed. Small bowel loops are decompressed. Normal quantity of colonic stool. Peritoneum: There is no free fluid or free air. No dependently layering hemorrhage or intraperitoneal hematoma. Ventral Wall: Large bowel containing left anterior and right posterior abdominal wall hernias. Fat containing midline hernias. Bowel containing anterior midline pelvic hernia. Abdominal Nodes: Several prominent retroperitoneal lymph nodes to the left of the aorta. No matted or bulky adenopathy. Vessels: The abdominal aorta, IVC, and portal vein are of normal caliber. Heavy abdominal aortic atherosclerotic calcification. PELVIS: Pelvic Organs: Age-appropriate. Pelvic Nodes: Unremarkable. Miscellaneous: No inguinal hernias are seen. Bones: Left hip pin. Compression fracture of L5. Chronic disc and endplate degeneration in the upper lumbar spine. No suspicious bone lesions. IMPRESSION: Grade 2/3 subcapsular splenic hematoma, probably subacute and most likely symptomatic. No perisplenic or intraperitoneal hemorrhage and no significant free pelvic fluid. Preliminary findings discussed with Dr. Donahue in the emergency room at 17:29 hours. Left percutaneous nephrostomy tube in stable position. Chronic left mid ureteral calculus. Other findings are stable. Dictated by: Carina Rubio M.D. on 10/14/2024 at 17:24 Approved by: Carina Rubio M.D. 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 Easy bruisability Gout History of COPD Hx of deep venous thrombosis Hx of fracture of femur Hx of gastroesophageal reflux (GERD) Hx of primary hypertension Hx of renal cell cancer Incontinence Leg swelling Lumbar hernia Neuropathy 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 Pulmonary embolism Rectal cancer Rectal carcinoma Retained urethral stent S/p nephrectomy Unspecified essential hypertension Surgical History H/O lithotripsy H/O nephrostomy History of low anterior resection of rectum History of ureter stent Family History Mother Hypertension Cancer Son Hypertension Grandfather Heart disease Cancer Granddaughter Eczema Social History marital status: number of children: 1 household members: children lives independently: Yes occupational status: previously employed and other Smoking Status: Current every day smoker Tobacco: How many years used: 60 alcohol intake: current substance use type: does not use caffeine: Yes Type(s) of exercise: none Discharge Assessment & Plan Assessment and Plan Assessment: Patient with a stable H&H over 36 hours. We will discharge her home today. I have asked the hospitalist to address her anticoagulation. Plan of Treatment: Discharged to home Discharge Plan Discharge Plan Patient Disposition: Home Provider Discharge Comment: Follow up with Dr. Grover next week Discharge orders & Medications Prescriptions: New celecoxib [Celebrex] 200 mg Capsule 200 mg PO BID Qty: 30 0RF hydromorphone 2 mg Tablet 2 mg PO Q3H PRN (Reason: Pain, Moderate (4-6)) Qty: 30 0RF ferrous sulfate 325 mg (65 mg iron) tablet 325 mg PO DAILY Qty: 30 0RF ascorbic acid (vitamin C) 500 mg capsule 500 mg PO DAILY Qty: 30 0RF Continued latanoprost 0.005 % drops 1 drp EYE-BOTH BEDTIME ipratropium-albuterol 0.5 mg-3 mg(2.5 mg base)/3 mL solution for nebulization 3 ml INHALATION 4XD Patient Comments: USE 1 VIAL VIA NEBULIZER FOUR TIMES DAILY diphenoxylate-atropine 2.5-0.025 mg tablet 1 tab PO 4XD PRN (Reason: diarrhea) amlodipine 5 mg tablet 5 mg PO DAILY oxycodone-acetaminophen 5-325 mg tablet 1 tab PO Q6H PRN (Reason: severe pain) metoprolol tartrate 25 mg Tablet 12.5 mg PO BID Combivent Respimat 20-100 mcg/actuation mist 1 puff INHALATION 4XD betamethasone dipropionate 0.05 % cream 1 applic topical DAILY PRN (Reason: Rash) ergocalciferol (vitamin D2) 1,250 mcg (50,000 unit) capsule 1,250 mcg PO QWEEK lorazepam 0.5 mg tablet 0.5 mg PO DAILY PRN (Reason: Anxiety) omeprazole 20 mg capsule,delayed release(DR/EC) 20 mg PO DAILY trazodone 50 mg tablet 50 mg PO BEDTIME PRN (Reason: LORI) Discontinued apixaban 2.5 mg tablet 2.5 mg PO BID Follow up/Referrals: Eric Grover MD [Primary Care Provider, Family Practice] Discharge Health Status Multidrug resistant organism: No MDRO Diet/Activity/Treatments Diet: Regular Visit Report/Discharge Packet Stand Alone Forms: Patient Portal/API, Stroke Signs & Symptoms Discharge Data Primary Care Provider: Eric Grover Attending Provider: Fahad Zhang Admit Date/Time: 10/14/24 20:20 [facility] Charge Codes Discharge inpatient/observation: [id number]
--- NOTE | 2024-10-16 14:41 | PC.NURSE ---
Discharge note: Patient discharge per MD order, discussed importance of F/U with Dr. Grover as scheduled, medication adherence, discontinuation of Eliquis and signs of worsening symptoms. Up OOB ambulating to chairwith FWW, dressed with assistance. Patient verbalized understanding of discharge instructions. HOme via private vehicle, accompanied by son.
--- NOTE | 2024-10-16 14:46 | CM.DPNOTE ---
DCP note SENIOR FORMULATION SCIENTIST reviewed EMR per chart review/surgeon note cleared for dc home today. per previous CM notes, need resumption information sent to [facility]. SENIOR FORMULATION SCIENTIST completed f2f/order and sent resumption referral info to [facility]. pt left prior to being seen by this SENIOR FORMULATION SCIENTIST Per RN, son here to pick pt up. P: home today with son support and [facility] to follow. OP f/u likely. CM team will continue to follow as needed for DCP coordination THERESE Benoit
== END 2024-10-16 14:45 | disposition home or self-care (01) ==
LOC: ED 18:00 → AC 20:21
PROVIDERS: Family Medicine; Student in an Organized Health Care Education/Training Program; Admitting Provider Surgery Trauma Surgery; Emergency Provider Family Medicine; PCP Family Medicine; Visit Provider Surgery Trauma Surgery
DX: D73.5 Infarction of spleen (principal); I10 Essential (primary) hypertension; D64.9 Anemia, unspecified; J44.9 Chronic obstructive pulmonary disease, unspecified; Z79.01 Long term (current) use of anticoagulants; Z86.711 Personal history of pulmonary embolism; Z93.6 Other artificial openings of urinary tract status; Z85.528 Personal history of other malignant neoplasm of kidney; F17.210 Nicotine dependence, cigarettes, uncomplicated
CPT/HCPCS: 36415; 74176; 80053; 81003; 83690; 84484; 85025; 85027; 85610; 86850; 86900; 86901; 93005; 94640; 96374; 96375; 96376; 99284; G0378; J1171; J2405

== ENCOUNTER → 2024-12-07 13:10 | Outpatient (CLI) | payer MEDICARE, SELFPAY ==
[2024-10-14 20:39] VITALS: BMI 26.6
== END ==
LOC: WC 13:11
PROVIDERS: Family Provider Family Medicine; PCP Family Medicine; Referring Provider Internal Medicine Nephrology; Visit Provider Surgery
DX: T83.032A Leakage of nephrostomy catheter, initial encounter (principal); L24.A2 Irritant contact dermatitis due to fecal, urinary or dual incontinence; Z85.528 Personal history of other malignant neoplasm of kidney; Z85.038 Personal history of other malignant neoplasm of large intestine; Z72.0 Tobacco use; K21.9 Gastro-esophageal reflux disease without esophagitis; I12.9 Hypertensive chronic kidney disease with stage 1 through stage 4 chronic kidney disease, or unspecified chronic kidney disease; N18.30 Chronic kidney disease, stage 3 unspecified; Z79.01 Long term (current) use of anticoagulants
CPT/HCPCS: 99203; 99213

== ENCOUNTER → 2024-12-15 10:59 | Outpatient (CLI) | payer MEDICARE, SELFPAY ==
[2024-10-14 20:39] VITALS: BMI 26.6
== END ==
LOC: WC 11:02
PROVIDERS: Family Provider Family Medicine; PCP Family Medicine; Referring Provider Family Medicine; Visit Provider Surgery
DX: T83.092A Other mechanical complication of nephrostomy catheter, initial encounter (principal); L24.A2 Irritant contact dermatitis due to fecal, urinary or dual incontinence
CPT/HCPCS: 99213

== ENCOUNTER → 2024-12-21 11:19 | Outpatient (CLI) | payer MEDICARE, SELFPAY ==
[2024-10-14 20:39] VITALS: BMI 26.6
== END ==
LOC: WC 11:22
PROVIDERS: Family Provider Family Medicine; PCP Family Medicine; Referring Provider Family Medicine; Visit Provider Surgery
DX: L24.A2 Irritant contact dermatitis due to fecal, urinary or dual incontinence (principal); Z93.6 Other artificial openings of urinary tract status; L98.491 Non-pressure chronic ulcer of skin of other sites limited to breakdown of skin
CPT/HCPCS: 99212; 99213

== ENCOUNTER → 2024-12-30 08:51 | Outpatient (CLI) | payer MEDICARE, SELFPAY ==
[2024-10-14 20:39] VITALS: BMI 26.6
--- NOTE | 2024-12-30 08:55 | DI.CT.S_ITS ---
PROCEDURE: CT ABDOMEN PELVIS W CON INDICATIONS: Spleen hematoma TECHNIQUE: After the administration of intravenous contrast, axial sections acquired from the lung bases to the pubic symphysis. Coronal and sagittal reformats were performed. For radiation dose reduction, the following was used: automated exposure control, adjustment of mA and/or kV according to patient size. COMPARISON: [facility], CT, CT ABDOMEN PELVIS W CON, 11/14/2024, 11:16. FINDINGS: Image quality: Diagnostic. Lower Chest: No significant findings. ABDOMEN: Liver: No solid mass. Several small subcentimeter cysts are seen scattered in the hepatic parenchyma. Gallbladder: No radiopaque gallstones or wall thickening. Biliary ducts: No biliary dilation. Pancreas: No ductal dilation. Spleen: Size is within normal limits. There has been an interval decrease in size of perisplenic fluid. Adrenal Glands: No adrenal nodules. Kidneys and Ureters: The right kidney is surgically absent. A percutaneous nephrostomy tube is seen within the left renal pelvis, unchanged. There is mild hydronephrosis. The ureter is dilated to the pelvis where there is a 9 millimeter calculus at the pelvic inlet causing obstruction. A 7 millimeter calculus is also seen in the distal left ureter. There is diffuse urothelial thickening involving the renal pelvis and proximal ureter, concerning for pyonephrosis. There is peripelvic soft tissue stranding. Cortical cysts are seen in the left kidney, 1 of which is hyperdense arising from the posterior cortex of the upper pole, unchanged. Stomach and Bowel: Normal colonic caliber, without significant wall thickening. Peritoneum: No abnormal intraperitoneal fluid. No free air. Ventral Wall: There is deficiency of the right posterolateral upper abdominal wall. The right hepatic lobe and hepatic flexure are protruding through the defect into the subcutaneous fat. The defect measures approximately 13 centimeters in dimension. A large left upper anterior abdominal wall hernia is seen containing the gastric antrum and splenic flexure. A colostomy in this region is suspected. Correlate with surgical history. Abdominal Nodes: No retroperitoneal or mesenteric adenopathy by size criteria. Vessels: Aorta and inferior vena cava are normal in size. PELVIS: Pelvic Organs: Unremarkable. Bladder: No bladder wall thickening, accounting for underdistention. Pelvic Nodes: No enlarged lymph nodes. Miscellaneous: No inguinal hernias are seen. There is circumferential wall thickening involving the lower vaginal canal which may be due to an intramural hematoma. Correlate clinically. Bones: No aggressive osseous abnormality. There is a hip screw in the left femoral head and neck transfixing an old healed fracture. There is a severe compression deformity of L5, chronic. Diffuse degenerative changes are seen in the lower thoracic and lumbar spine. 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 Large left upper anterior abdominal wall hernia containing splenic flexure in the gastric antrum. There appears to be a colostomy in this location. Correlate clinically. Circumferential wall thickening in the vicinity of the lower vaginal canal concerning for an intramural hematoma. Correlate clinically. Urothelial thickening involving the left renal pelvis and ureter likely represents pyonephrosis. There is a percutaneous nephrostomy tube in place and 2 calculi in the distal left ureter, unchanged. Interval decrease in size a perisplenic fluid collection since November 14, 2024. Dictated by: Eric Lira M.D. on 12/30/2024 at 15:09 Approved by: Eric Lira M.D. on 12/30/2024 at 15:32
[2024-12-30 14:26] LABS: Protein (Total) Urine Random 23 mg/dL (0-12)
[2024-12-30 14:30] LABS: Microalbumi Creatinin Ratio Ur 422.0 ug/mg CR (<30)
== END ==
PROVIDERS: Family Provider Family Medicine; PCP Family Medicine; Referring Provider Internal Medicine Nephrology; Visit Provider Internal Medicine Nephrology
DX: N39.0 Urinary tract infection, site not specified (principal); S36.029D Unspecified contusion of spleen, subsequent encounter; N17.9 Acute kidney failure, unspecified; I12.9 Hypertensive chronic kidney disease with stage 1 through stage 4 chronic kidney disease, or unspecified chronic kidney disease; N18.30 Chronic kidney disease, stage 3 unspecified; N13.2 Hydronephrosis with renal and ureteral calculous obstruction; N28.1 Cyst of kidney, acquired; K43.9 Ventral hernia without obstruction or gangrene; M47.814 Spondylosis without myelopathy or radiculopathy, thoracic region; M47.816 Spondylosis without myelopathy or radiculopathy, lumbar region; Z85.528 Personal history of other malignant neoplasm of kidney; Z93.3 Colostomy status; Z90.5 Acquired absence of kidney; Z93.6 Other artificial openings of urinary tract status
CPT/HCPCS: 74177; 82043; 82570; 84156; Q9967

== ENCOUNTER → 2025-01-03 10:21 | Outpatient (CLI) | payer MEDICARE, SELFPAY ==
[2024-10-14 20:39] VITALS: BMI 26.6
== END ==
LOC: WC 10:23
PROVIDERS: Family Provider Family Medicine; PCP Family Medicine; Referring Provider Family Medicine; Visit Provider Surgery
DX: T83.032A Leakage of nephrostomy catheter, initial encounter (principal); L24.A2 Irritant contact dermatitis due to fecal, urinary or dual incontinence; Z85.528 Personal history of other malignant neoplasm of kidney; Z85.038 Personal history of other malignant neoplasm of large intestine; R19.7 Diarrhea, unspecified; Z72.0 Tobacco use
CPT/HCPCS: 99213

== ENCOUNTER → 2025-03-01 10:05 | Outpatient (CLI) | payer MEDICARE, SELFPAY ==
[2024-10-14 20:39] VITALS: BMI 26.6
[2025-03-01 11:14] LABS: Add Manual Diff / Slide Review NO; Hematocrit 27.8 % (36-46); Hemoglobin 8.9 g/dL (12.0-16.0); Lymphocytes Absolute Auto 1100 /uL (1100-4500); Mean Corpuscular HGB Conc 31.8 % (30-36); Mean Corpuscular Hemoglobin 24.8 PG (26-34); Mean Corpuscular Volume 77.9 fL (80-100); Platelet Count 368 X10^3/uL (150-400)
[2025-03-01 11:36] LABS: Alanine Aminotransferase 9 IU/L (<35); Albumin 3.6 g/dL (3.5-5.0); Albumin Globulin Ratio 0.9 (1.0-2.8); Alkaline Phosphatase 131 U/L (38-126); Blood Urea Nitrogen 44 mg/dL (7-17); Calcium 9.3 mg/dL (8.4-10.2); Carbon Dioxide 17 mmol/L (22-32); Chloride 113 mmol/L (98-107); Estimated Glomerular Filt Rate 31 mL/min (>60); Globulin 4.1 g/dL (1.7-4.1); Glucose 95 mg/dL (70-99); HEMOLYSIS < 15 (0-50); Potassium 4.3 mmol/L (3.4-5.1); Sodium 141 mmol/L (137-145); Total Protein 7.7 g/dL (6.3-8.2)
[2025-03-01 11:38] LABS: Albumin 3.4 g/dL (3.5-5.0); Blood Urea Nitrogen 43 mg/dL (7-17); Calcium 9.3 mg/dL (8.4-10.2); Carbon Dioxide 18 mmol/L (22-32); Chloride 113 mmol/L (98-107); Estimated Glomerular Filt Rate 28 mL/min (>60); Glucose 96 mg/dL (70-99); HEMOLYSIS < 15 (0-50); Phosphorous 4.0 mg/dL (2.8-4.1); Potassium 4.3 mmol/L (3.4-5.1); Sodium 142 mmol/L (137-145)
[2025-03-01 12:07] LABS: Carcinoembryonic Antigen 2.2 ng/mL (0.1-3.0)
== END ==
PROVIDERS: Internal Medicine Nephrology; Family Provider Family Medicine; PCP Family Medicine; Referring Provider Internal Medicine Hematology & Oncology; Visit Provider Internal Medicine Hematology & Oncology
DX: C19 Malignant neoplasm of rectosigmoid junction (principal); I26.99 Other pulmonary embolism without acute cor pulmonale; N18.4 Chronic kidney disease, stage 4 (severe); Z85.528 Personal history of other malignant neoplasm of kidney
CPT/HCPCS: 36415; 80053; 80069; 82378; 85025

== ENCOUNTER → 2025-03-03 10:17 | Outpatient (CLI) | payer MEDICARE, SELFPAY ==
[2024-10-14 20:39] VITALS: BMI 26.6
[2025-03-03 12:45] LABS: Appearance Urine UA SL CLOUDY; Bilirubin Urine UA NEGATIVE (NEGATIVE); Color Urine UA YELLOW; Glucose Urine UA NEGATIVE (Negative); Ketones Urine UA NEGATIVE (NEGATIVE); Leukocyte Esterase Urine UA 3+ (NEGATIVE); Nitrite Urine UA POSITIVE (Negative); Occult Blood Urine UA 2+ (Negative); Protein Urine UA 3+ (Negative); Specific Gravity Urine UA 1.010 (1.000-1.035); Urobilinogen Urine UA 0.2 E.U./dL (0.2)
[2025-03-03 12:48] LABS: pH Urine UA 8.5 (4.5-8.0)
[2025-03-03 12:59] LABS: Culture Indicated Urine Specimen Cultured
== END ==
PROVIDERS: Family Provider Family Medicine; PCP Family Medicine; Referring Provider Internal Medicine Nephrology; Visit Provider Internal Medicine Nephrology
DX: N18.32 Chronic kidney disease, stage 3b (principal); N17.9 Acute kidney failure, unspecified
CPT/HCPCS: 81003; 81015; 87077; 87086

== ENCOUNTER → 2025-03-06 16:28 | Outpatient (CLI) | payer MEDICARE, SELFPAY ==
[2024-10-14 20:39] VITALS: BMI 26.6
--- NOTE | 2025-03-06 16:34 | DI.US.S_ITS ---
PROCEDURE: US THYROID INDICATIONS: hyperthyroidism TECHNIQUE: Real-time scanning was performed of the thyroid gland, with image documentation. COMPARISON: None. FINDINGS: Thyroid: Right lobe measures 5.1 x 2.0 x 1.8 cm. Left lobe measures 5.7 x 2.5 x 2.1 cm. Isthmus is 0.4 cm thick. Echotexture is heterogeneous . Multiple thyroid nodules identified. Nodule number: 1 Location: Right upper Size: 1.1 x 0.9 x 1.0 cm. Composition: Predominately solid Echogenicity: Hypoechoic Shape: wider than tall. Margins: Smooth Echogenic foci: Macro calcifications are present. Total points: 5 ACR TI-RADS category: 4 Nodule number: 2 Location: Left upper Size: 1.9 x 0.8 x 1.9 cm. Composition: Predominately solid Echogenicity: Hypoechoic Shape: wider than tall. Margins: Smooth Echogenic foci: None Total points: 4 ACR TI-RADS category: 4 Nodule number: 3 Location: Posterior left upper Size: 1.5 x 0.8 x 1.3 cm. Composition: Solid Echogenicity: Hypoechoic Shape: Wider than tall Margins: Smooth Echogenic foci: None Total points: 4 ACR TI-RADS category: 4 Nodule number: 4 Location: Left lower Size: 2.8 x 2.1 x 1.9 cm. Composition: Predominately solid Echogenicity: Hypoechoic Shape: Taller than wide Margins: Smooth Echogenic foci: None Total points: 7 ACR TI-RADS category: 5 IMPRESSION: Imaging findings consistent with a multinodular thyroid goiter. 2.8 cm left lower TI-RADS 5 and 1.9 cm left upper TI-RAD 4 nodules. Recommend percutaneous ultrasound-guided biopsy. Recommend continued annual surveillance. No pathologic lymphadenopathy. ACR TI-RADS definitions and recommendations: TI-RADS 1 (benign): 0 points. FNA not needed. TI-RADS 2 (not suspicious): 2 points. FNA not needed. TI-RADS 3: 3 points. * FNA if 2.5 cm or larger, follow up if 1.5 cm or larger (at 1, 3, and 5 years). TI-RADS 4: 4-6 points. * FNA if 1.5 cm or larger, follow up if 1 cm or larger (at 1, 2, 3, and 5 years). TI-RADS 5: 7 points or more. * FNA if 1 cm or larger, follow up if 0.5 cm or larger (every year for 5 years). Dictated by: Cori Adan M.D. on 03/07/2025 at 21:43 Approved by: Cori Adan M.D. on 03/07/2025 at 21:56
== END ==
LOC: US 16:33
PROVIDERS: Family Provider Family Medicine; PCP Family Medicine; Referring Provider Family Medicine; Visit Provider Family Medicine
DX: E05.90 Thyrotoxicosis, unspecified without thyrotoxic crisis or storm (principal); E04.2 Nontoxic multinodular goiter
CPT/HCPCS: 76536

== ENCOUNTER → 2025-03-14 09:17 | Outpatient (CLI) | payer MEDICARE, SELFPAY ==
[2024-10-14 20:39] VITALS: BMI 26.6
[2025-03-14 10:04] LABS: Add Manual Diff / Slide Review NO; Hematocrit 28.4 % (36-46); Hemoglobin 9.1 g/dL (12.0-16.0); Lymphocytes Absolute Auto 1400 /uL (1100-4500); Mean Corpuscular HGB Conc 32.1 % (30-36); Mean Corpuscular Hemoglobin 24.9 PG (26-34); Mean Corpuscular Volume 77.5 fL (80-100); Platelet Count 350 X10^3/uL (150-400)
[2025-03-14 10:16] LABS: Alanine Aminotransferase 10 IU/L (<35); Albumin 3.7 g/dL (3.5-5.0); Albumin Globulin Ratio 0.9 (1.0-2.8); Alkaline Phosphatase 131 U/L (38-126); Blood Urea Nitrogen 37 mg/dL (7-17); Calcium 9.3 mg/dL (8.4-10.2); Carbon Dioxide 20 mmol/L (22-32); Chloride 111 mmol/L (98-107); Estimated Glomerular Filt Rate 29 mL/min (>60); Globulin 4.0 g/dL (1.7-4.1); Glucose 96 mg/dL (70-99); HEMOLYSIS < 15 (0-50); Potassium 3.9 mmol/L (3.4-5.1); Sodium 142 mmol/L (137-145); Total Protein 7.7 g/dL (6.3-8.2)
[2025-03-14 10:46] LABS: Carcinoembryonic Antigen 2.4 ng/mL (0.1-3.0)
== END ==
PROVIDERS: Family Provider Family Medicine; PCP Family Medicine; Referring Provider Internal Medicine Hematology & Oncology; Visit Provider Internal Medicine Hematology & Oncology
DX: C19 Malignant neoplasm of rectosigmoid junction (principal); I26.99 Other pulmonary embolism without acute cor pulmonale; Z85.528 Personal history of other malignant neoplasm of kidney
CPT/HCPCS: 36415; 80053; 82378; 85025

== ENCOUNTER 2025-03-28 03:31 | Emergency (ER) | payer MEDICARE, SELFPAY ==
[2024-10-14 20:39] VITALS: BMI 26.6
== END 2025-03-28 04:51 | disposition left against medical advice (07) ==
PROVIDERS: Emergency Provider Emergency Medicine; Family Provider Family Medicine; PCP Family Medicine
DX: Z53.21 Procedure and treatment not carried out due to patient leaving prior to being seen by health care provider (principal)